=== PATIENT | male | born 1960 | race Caucasian/White ===

== ENCOUNTER 2018-03-31 14:17 | Emergency (ER) | payer OTHER, SELFPAY ==
[2018-03-31 14:25] VITALS: BP 157/87; PULSE 63; RESP 18; TEMP 36.7; O2SAT 98
--- NOTE | 2018-03-31 14:43 | W.ED.GENAD ---
Discharge Plan Disposition Patient Disposition: HOME Condition: Stable Discharge Details Chief Complaint: Abd Prob Clinical Impression: Obstructive jaundice Reason For Visit: loose stool / abd pain Primary Care Provider: Corrie Pacheco ED Provider: Waldemar Montana Discharge Instructions Additional Instructions: Home to rest today. Resume your normal routine and activities. I discussed her case this evening with the gastroenterology service at [facility], Dr. Rae. Hr stated that the clinic will call you at home to arrange an outpatient follow-up as we discussed. We will ask our care management team to speed up your follow-up appointment at [facility] internal medicine as well. Return if you develop a fever or confusion, or any other acute concerns Discharge Data Discharge Date/Time-TO BE ENTERED AT DEPARTURE: 03/31/18 18:49 Medical Decision Making <Brisa Hoffman MD - Last Filed: 04/07/18 16:36> Jaciel Combs is a 57 y/o man came to the emergency department with pale stools over the past week, mild upper abdominal pain without history of major medical problems. On exam patient is well and nontoxic appearing, mild scleral icterus. Mild tenderness across the upper abdomen without peritoneal signs. Concern for possible obstructive biliary process. Plan for screening labs, CT abdomen pelvis, IV fluid hydration. Exam/history not consistent with sepsis, ACS. Patient declines pain medicine. Labs show elevated LFTs. CT of the abdomen/pelvis shows likely obstructing pancreatic mass. Results discussed with the patient by me. Patient signed out to Dr. Montana at shift change pending consultation with GI at [facility]. Clinical impression: Abnormal LFTs, pancreatic mass Disposition: Still patient Medical Records Medical records reviewed: Yes I reviewed the patient's medical records. Imaging Data Radiologic Study: Radiologist's impression: CT ABDOMEN AND PELVIS: There are no prior comparison exams. The lung bases are clear. No pleural or pericardial effusions seen. The liver appears normal in size. There is intrahepatic as well as extrahepatic biliary dilatation. The gallbladder is also distended but there is no wall thickening or pericholecystic fluid. No calcified stones are visible. No common duct stones are identified. There is suboptimal evaluation without oral contrast. There is an apparent mass in the head of the pancreas measuring roughly 2.5 cm No adenopathy is identified. The spleen, adrenals and kidneys are unremarkable. There is a moderate quantity of stool. The appendix appears normal. Diverticula are noted in the sigmoid colon. There is no small bowel dilatation. The prostate is enlarged, impressing upon the base of the bladder. No focal bladder abnormality is seen. Degenerative disc changes are seen at L5-S1. The aorta is normal in diameter. IMPRESSION: Probable mass in the head of the pancreas measuring 2.5 cm causing biliary obstruction. Lab Data Lab results reviewed: Yes I reviewed the patient's lab results. Laboratory Tests Range/Units 03/31/18 03/31/18 03/31/18 15:20 15:20 16:40 WBC (4.4-10.8) k/cumm 6.10 RBC (4.50-6.00) m/cumm 4.71 Hgb (13.5-17.5) g/dL 14.3 Hct (40.0-50.0) % 41.2 MCV (80-95) fL 87.5 MCH (27.0-33.0) pg 30.4 MCHC (32.0-36.0) g/dL 34.7 RDW (11.8-14.1) % 15.8 H Plt Count (130-400) x1000/uL 246 MPV (8.0-11.0) fL 10.6 Immature Gran % 0.2 Neutrophils % 66.4 Lymphocytes % 21.1 Monocytes % 11.3 Eosinophils % 0.5 Basophils % 0.5 Absolute Neutrophils (1.2-6.7) k/cumm 4.05 Absolute Lymphocytes (1.2-3.4) k/cumm 1.29 Absolute Monocytes (0.11-0.7) k/cumm 0.69 Absolute Eosinophils (0.0-0.7) k/cumm 0.03 Absolute Basophils (0.0-0.2) k/cumm 0.03 Sodium (136-145) mmol/L 136 Potassium (3.5-5.1) mmol/L 3.9 Chloride (98-107) mmol/L 100 Carbon Dioxide (21.0-32.0) mmol/L 26.8 Anion Gap (3-11) mmol/L 9.2 BUN (7-18) mg/dL 19 H Creatinine (0.70-1.30) mg/dL 0.81 Estimated GFR/1.73 m2 (mL/min/1.73m2) >= 60.00 Glucose (70-100) mg/dL 97 Calcium (8.5-10.1) mg/dL 9.6 Total Bilirubin (0.2-1.0) mg/dL 6.9 H AST (15-37) U/L 115 H ALT (12-78) U/L 227 H Alkaline Phosphatase (46-116) U/L 305 H Total Protein (6.4-8.2) g/dL 8.2 Albumin (3.4-5.0) g/dL 3.7 Lipase (73-393) U/L 553 H Urine Color (Yellow) Carly Urine Clarity Clear Urine pH (5-8) 5.5 Ur Specific [place] (1.005-1.025) 1.025 Urine Protein (Negative) mg/dL Trace H Urine Ketones (Negative) mg/dL Negative Urine Blood (Negative) Negative Urine Nitrite (Negative) Negative Urine Bilirubin (Negative) Large H Urine Urobilinogen (Up TO 0.2) EU/dL 1.0 H Ur Leukocyte Esterase (Negative) Negative Urine RBC (0-2) Negative Urine WBC (0-5) HPF 0-2 Ur Epithelial Cells (Negative) HPF Negative Urine Crystals (Negative) HPF Negative Urine Bacteria (Negative) HPF Few Urine Casts (Negative) LPF Negative Urine Mucus (Negative) Trace Urine Other (Negative) Negative Ur Culture Indicated? No Urine Glucose (Negative) mg/dL Negative <Waldemar Montana MD - Last Filed: 03/31/18 18:35> Received signout from Dr. Hoffman. Please see her note regarding details of patient's presentation, evaluation and diagnostic results. I discussed the patient's case with Dr. Rae of [facility] GI service. He asked that patient be seen in clinic this week for outpatient endoscopic ultrasound. He stated that the clinic will call the patient at home. I discussed with the patient and his the differential diagnosis of what appears to be a pancreatic head mass. Discussed with him return precautions including the development of fever or confusion. Patient is stable for discharge to home with outpatient follow-up at GI clinic HPI <Brisa Hoffman MD - Last Filed: 04/07/18 16:36> General Mode of arrival: ambulatory. Date/Time Provider Initiated Documentation: 03/31/18 14:43. Limitations to Documentation: no limitations. Information obtained by: patient, RN notes reviewed and old records reviewed. HPI Narrative: Jaciel Combs is a 57-year-old man with out history of major medical problems presenting to the emergency department with pale stools. Patient reports that over the past 7 or 8 days he has noticed that his stool seems very pale, white in color. 2 days ago he developed diarrhea, and color remained pale. He has also noticed some weight loss over the past week that has been unintentional. He has had some mild discomfort across the upper abdomen that he describes as a tightness over the past few days. Fever is fever, no shortness of breath, no cough, no rash, no numbness/tingling/weakness, no nausea or vomiting. Has been eating and drinking as usual no recent illness. No recent travel. Has been able to go about his daily activities as usual. Related Data Allergies Allergy/AdvReac Type Severity Reaction Status Date / Time No Known Allergies Allergy Unverified 03/31/18 14:30 General Stated Complaint: Abd Prob ANAYELI: 3 Review of Systems <Brisa Hoffman MD - Last Filed: 04/07/18 16:36> Review of Systems Constitutional: denies fevers Eyes: denies eye pain ENT: denies facial pain, dental pain, sore throat Cardiovascular: denies chest pain, edema Respiratory: denies SOB, cough GI: reports mild abdominal pain, diarrhea, denies vomiting : denies flank pain MSK: denies back pain, neck pain, arthralgias, myalgias Skin: denies rash Neuro: denies headaches, lightheadedness, weakness Exam <Brisa Hoffman MD - Last Filed: 04/07/18 16:36> Narrative Exam Narrative: Constitutional: well and rdw-rcera-cmamecimm, pleasant, conversing normally HENT: head atraumatic, normocephalic normal inspection, mucous membranes moist Eyes: conjunctiva normal, mild scleral icterus, pupils 3mm b/l Neck: no stridor, normal ROM, trachea midline Chest: normal inspection Resp: normal work of breathing, LCTAB Cardio: normal rate, normal rhythm, no murmur appreciated GI: abdomen soft, non-tender, non-distended Back: normal inspection, no rash Skin: warm, dry, no rash Neuro: alert, not altered, grossly non-focal, normal tone Ext: no edema Psych: normal mood, normal affect, normal behavior Course <Brisa Hoffman MD - Last Filed: 04/07/18 16:36> Vital Signs Temperature 36.7 C 03/31/18 14:25 Pulse 63 03/31/18 14:25 Respiratory Rate 18 03/31/18 14:25 Blood Pressure 157/87 H 03/31/18 14:25 Pulse Oximetry 98 03/31/18 14:25 Temperature 36.7 C 03/31/18 14:25 Temperature Source Temporal Artery Scan 03/31/18 14:25 Pulse 63 03/31/18 14:25 Respiratory Rate 18 03/31/18 14:25 Respiratory Effort 03/31/18 14:30 Blood Pressure 157/87 H 03/31/18 14:25 Blood Pressure Position Sitting 03/31/18 14:25 Pulse Oximetry 98 03/31/18 14:25 Oxygen Delivery Method Room Air 03/31/18 14:25 Oxygen Flow Rate 0 03/31/18 14:25 Comment 03/31/18 14:25 Sign Out <Brisa Hoffman MD - Last Filed: 04/07/18 16:36> Sign Out Data: Sign Out Comment: Patient signed out to Dr. Montana at shift change with discussion with GI pending Last updated by Brisa Hoffman MD at 03/31/18 18:08
--- NOTE | 2018-03-31 14:56 | DI.CT_ITS ---
SYMPTOM/DIAGNOSIS: UPPER ABD PAIN, PALE STOOLS CT ABDOMEN AND PELVIS: There are no prior comparison exams. The lung bases are clear. No pleural or pericardial effusions seen. The liver appears normal in size. There is intrahepatic as well as extrahepatic biliary dilatation. The gallbladder is also distended but there is no wall thickening or pericholecystic fluid. No calcified stones are visible. No common duct stones are identified. There is suboptimal evaluation without oral contrast. There is an apparent mass in the head of the pancreas measuring roughly 2.5 cm No adenopathy is identified. The spleen, adrenals and kidneys are unremarkable. There is a moderate quantity of stool. The appendix appears normal. Diverticula are noted in the sigmoid colon. There is no small bowel dilatation. The prostate is enlarged, impressing upon the base of the bladder. No focal bladder abnormality is seen. Degenerative disc changes are seen at L5-S1. The aorta is normal in diameter. IMPRESSION: Probable mass in the head of the pancreas measuring 2.5 cm causing biliary obstruction.
[2018-03-31 15:46] LABS: Abs Immature Grans 0.01 k/cumm (0.0-0.09); Absolute Basophil Count 0.03 k/cumm (0.0-0.2); Absolute Eosinophil Count 0.03 k/cumm (0.0-0.7); Absolute Lymphocyte Count 1.29 k/cumm (1.2-3.4); Absolute Monocyte Count 0.69 k/cumm (0.11-0.7); Absolute Neutrophil Count 4.05 k/cumm (1.2-6.7); Basophils % 0.5; Eosinophils % 0.5; HCT 41.2 % (40.0-50.0); HGB 14.3 g/dL (13.5-17.5); Immature Grans % 0.2; Lymphocytes % 21.1; Mean Corp. HGB Concentration 34.7 g/dL (32.0-36.0); Mean Corpuscular Hemoglobin 30.4 pg (27.0-33.0); Mean Corpuscular Volume 87.5 fL (80-95); Mean Platelet Volume 10.6 fL (8.0-11.0); Monocytes % 11.3; Neutrophils % 66.4; Platelet Count 246 x1000/uL (130-400); RBC 4.71 m/cumm (4.50-6.00); RBC Distribution Width 15.8 % (11.8-14.1)
[2018-03-31] MEDS: Normal Saline 1,000 ML 1000 ML IV (16:07)
[2018-03-31 16:51] LABS: ALT 227 U/L (12-78); AST 115 U/L (15-37); Albumin 3.7 g/dL (3.4-5.0); Alkaline Phosphatase 305 U/L (46-116); Anion Gap 9.2 mmol/L (3-11); BUN 19 mg/dL (7-18); Bilirubin, Total 6.9 mg/dL (0.2-1.0); CO2 26.8 mmol/L (21.0-32.0); CREATININE 0.81 mg/dL (0.70-1.30); Calcium 9.6 mg/dL (8.5-10.1); Chloride 100 mmol/L (98-107); Glucose 97 mg/dL (70-100); Lipase 553 U/L (73-393); Potassium 3.9 mmol/L (3.5-5.1); Sodium 136 mmol/L (136-145); Total Protein 8.2 g/dL (6.4-8.2)
[2018-03-31 16:54] LABS: Bilirubin Large (Negative); Blood Negative (Negative); Clarity Clear; Glucose Negative (Negative); Ketones Negative (Negative); Leukocyte Esterase Negative (Negative); Nitrite Negative (Negative); Specific Gravity 1.025 (1.005-1.025); pH 5.5 (5-8)
[2018-03-31 17:05] LABS: Bacteria Few HPF (Negative); C & S Indicated? No; Casts Negative LPF (Negative); Crystals Negative HPF (Negative); Epithelial Cells Negative HPF (Negative); Mucus Trace (Negative); Other Cells Negative (Negative); RBC Negative (0-2); WBC 0-2 HPF (0-5)
[2018-03-31] MEDS: Omnipaque 350 MG/ML 100 ML BTL IJ (17:11)
--- NOTE | 2018-03-31 17:27 | DI.VRAD_ITS ---
EXAM: CT Abdomen and Pelvis With Intravenous Contrast EXAM DATE/TIME: 03/31/2018 2:58 PM CLINICAL HISTORY: 57 years old, male; Pain; Abdominal pain; Generalized TECHNIQUE: Axial computed tomography images of the abdomen and pelvis with intravenous contrast. All CT scans at this facility use at least one of these dose optimization techniques: automated exposure control; mA and/or kV adjustment per patient size (includes targeted exams where dose is matched to clinical indication); or iterative reconstruction. Coronal and sagittal reformatted images were created and reviewed. CONTRAST: 93 ml of [id number] administered intravenously. COMPARISON: No relevant prior studies available. FINDINGS: Lower thorax: The visualized portions of the heart and pericardium are unremarkable. The visualized lung bases are within normal limits. ABDOMEN: Liver: See below. Gallbladder and bile ducts: There is intrahepatic and extrahepatic biliary ductal dilatation. The gallbladder is distended. Pancreas: See Stomach And Bowel Finding. Spleen: The spleen is within normal limits. Adrenals: The adrenal glands are unremarkable. Kidneys and ureters: The kidneys are within normal limits. Stomach and bowel: There are feces within the colon which are suspicious for constipation. A lesion within the second portion of the duodenum is not totally excluded. This measures approximately 2.4 x 1.6 cm. This could possibly represent a lesion at the head of pancreas as well. Further evaluation could be obtained with a CT scan of the pancreas utilizing pancreatic protocol. Appendix: No evidence of appendicitis. PELVIS: Bladder: See Reproductive Finding. Reproductive: The prostate is enlarged and indents the bladder base. The urinary bladder is within normal limits. The seminal vesicles are within normal limits. ABDOMEN and PELVIS: Intraperitoneal space: Normal. No free air. No significant fluid collection. Bones/joints: There are degenerative changes of the thoracic and lumbar spines. There is degenerative disc disease L5-S1. Soft tissues: Unremarkable. Vasculature: The aorta is within normal limits. Lymph nodes: No enlarged lymph nodes. IMPRESSION: Intrahepatic and extrahepatic biliary ductal dilatation. The gallbladder is somewhat distended. A lesion at the head of the pancreas/duodenum is not excluded. Further evaluation could be obtained with a CT scan of the pancreas utilizing pancreatic protocol. Suspect some degree of constipation. Clinical correlation is recommended. Enlarged prostate. Correlation with the patient's PSA is recommended. Dictated and Authenticated by: Cj Agosto MD. Ordering:DESIRAE ALARCON MD
[2018-03-31 18:36] VITALS: BP 138/82; PULSE 60; RESP 16; TEMP 36.8; O2SAT 100
== END 2018-03-31 18:49 | disposition home or self-care (01) ==
PROVIDERS: Student in an Organized Health Care Education/Training Program; Emergency Provider Emergency Medicine; PCP Nurse Practitioner
DX: K83.1 Obstruction of bile duct (principal); R63.4 Abnormal weight loss; R93.3 Abnormal findings on diagnostic imaging of other parts of digestive tract
CPT/HCPCS: 36415; 80053; 83690; 96360; 99285; 74177; 81003; 81015; 85025; 99284; J3490

== ENCOUNTER 2018-06-06 00:53 | Outpatient (CLI) | payer OTHER, SELFPAY ==
[2018-06-06 08:29] LABS: Abs Immature Grans 0.02 k/cumm (0.0-0.09); Absolute Basophil Count 0.08 k/cumm (0.0-0.2); Absolute Eosinophil Count 0.32 k/cumm (0.0-0.7); Absolute Monocyte Count 0.52 k/cumm (0.11-0.7); Absolute Neutrophil Count 3.67 k/cumm (1.2-6.7); Basophils % 1.3; Eosinophils % 5.3; HCT 39.4 % (40.0-50.0); HGB 13.2 g/dL (13.5-17.5); Immature Grans % 0.3; Lymphocytes % 23.3; Mean Corp. HGB Concentration 33.5 g/dL (32.0-36.0); Mean Corpuscular Hemoglobin 33.1 pg (27.0-33.0); Mean Corpuscular Volume 98.7 fL (80-95); Mean Platelet Volume 9.1 fL (8.0-11.0); Monocytes % 8.7; Neutrophils % 61.1; Platelet Count 295 x1000/uL (130-400); RBC 3.99 m/cumm (4.50-6.00); RBC Distribution Width 13.3 % (11.8-14.1); White Blood Cell Count 6.01 k/cumm (4.4-10.8)
[2018-06-06 08:51] LABS: ALT 54 U/L (12-78); AST 30 U/L (15-37); Albumin 3.3 g/dL (3.4-5.0); Alkaline Phosphatase 88 U/L (46-116); Anion Gap 7.7 mmol/L (3-11); BUN 18 mg/dL (7-18); Bilirubin, Total 0.7 mg/dL (0.2-1.0); CO2 30.3 mmol/L (21.0-32.0); CREATININE 0.86 mg/dL (0.70-1.30); Chloride 103 mmol/L (98-107); Glucose 109 mg/dL (70-100); Potassium 3.9 mmol/L (3.5-5.1); Sodium 141 mmol/L (136-145); Total Protein 7.6 g/dL (6.4-8.2)
[2018-06-06 09:02] LABS: Calcium 8.7 mg/dL (8.5-10.1)
[2018-06-09 11:48] LABS: CA 19-9 3 U/mL (<35)
== END 2018-06-06 01:13 ==
PROVIDERS: PCP Nurse Practitioner; Visit Provider Internal Medicine Hematology & Oncology
DX: C25.0 Malignant neoplasm of head of pancreas (principal)
CPT/HCPCS: 36415; 80053; 85025; 86301

== ENCOUNTER 2018-06-19 01:42 | Outpatient (RCR) | payer OTHER, SELFPAY ==
[2018-06-19 13:00] LABS: Abs Immature Grans 0.01 k/cumm (0.0-0.09); Absolute Basophil Count 0.06 k/cumm (0.0-0.2); Absolute Lymphocyte Count 2.07 k/cumm (1.2-3.4); Absolute Monocyte Count 0.62 k/cumm (0.11-0.7); Absolute Neutrophil Count 4.49 k/cumm (1.2-6.7); Basophils % 0.8; Eosinophils % 2.7; HCT 38.8 % (40.0-50.0); HGB 12.8 g/dL (13.5-17.5); Immature Grans % 0.1; Lymphocytes % 27.8; Mean Corpuscular Hemoglobin 31.8 pg (27.0-33.0); Mean Corpuscular Volume 96.3 fL (80-95); Mean Platelet Volume 9.1 fL (8.0-11.0); Monocytes % 8.3; Neutrophils % 60.3; Platelet Count 231 x1000/uL (130-400); RBC 4.03 m/cumm (4.50-6.00); RBC Distribution Width 11.7 % (11.8-14.1); White Blood Cell Count 7.45 k/cumm (4.4-10.8)
[2018-06-19] MEDS: Normal Saline Flush 10 ML SYR IVP (13:06)
[2018-06-19] MEDS: Heparin 500 UNITS/5 ML SYRINGE IV (13:06)
[2018-06-19 13:17] LABS: ALT 41 U/L (12-78); AST 25 U/L (15-37); Albumin 3.4 g/dL (3.4-5.0); Alkaline Phosphatase 80 U/L (46-116); Anion Gap 8.3 mmol/L (3-11); BUN 22 mg/dL (7-18); Bilirubin, Total 0.9 mg/dL (0.2-1.0); CO2 28.7 mmol/L (21.0-32.0); CREATININE 0.81 mg/dL (0.70-1.30); Calcium 8.7 mg/dL (8.5-10.1); Chloride 104 mmol/L (98-107); Glucose 127 mg/dL (70-100); Potassium 3.8 mmol/L (3.5-5.1); Sodium 141 mmol/L (136-145); Total Protein 7.5 g/dL (6.4-8.2)
== END 2018-07-03 23:59 | disposition home or self-care (01) ==
LOC: INF 01:42
PROVIDERS: PCP Nurse Practitioner; Visit Provider Internal Medicine Hematology & Oncology
DX: C25.0 Malignant neoplasm of head of pancreas (principal); Z45.2 Encounter for adjustment and management of vascular access device
CPT/HCPCS: 36591; 80053; 85025

== ENCOUNTER 2018-08-01 01:47 | Outpatient (RCR) | payer OTHER, SELFPAY ==
[2018-07-04] MEDS: Normal Saline Flush 10 ML SYR IVP (13:44)
[2018-07-04] MEDS: Heparin 500 UNITS/5 ML SYRINGE IV (13:44)
[2018-07-04 13:56] LABS: Abs Immature Grans 0.01 k/cumm (0.0-0.09); Absolute Basophil Count 0.05 k/cumm (0.0-0.2); Absolute Eosinophil Count 0.08 k/cumm (0.0-0.7); Absolute Lymphocyte Count 1.19 k/cumm (1.2-3.4); Absolute Monocyte Count 0.82 k/cumm (0.11-0.7); Absolute Neutrophil Count 5.22 k/cumm (1.2-6.7); Basophils % 0.7; Eosinophils % 1.1; HCT 43.4 % (40.0-50.0); HGB 15.5 g/dL (13.5-17.5); Immature Grans % 0.1; Lymphocytes % 16.1; Mean Corp. HGB Concentration 35.7 g/dL (32.0-36.0); Mean Corpuscular Hemoglobin 31.3 pg (27.0-33.0); Mean Corpuscular Volume 87.5 fL (80-95); Mean Platelet Volume 9.8 fL (8.0-11.0); Monocytes % 11.1; Neutrophils % 70.9; Platelet Count 221 x1000/uL (130-400); RBC 4.96 m/cumm (4.50-6.00); RBC Distribution Width 11.6 % (11.8-14.1); White Blood Cell Count 7.37 k/cumm (4.4-10.8)
[2018-07-04 14:09] LABS: ALT 42 U/L (12-78); AST 25 U/L (15-37); Albumin 3.2 g/dL (3.4-5.0); Alkaline Phosphatase 82 U/L (46-116); Anion Gap 8.4 mmol/L (3-11); BUN 21 mg/dL (7-18); Bilirubin, Total 0.4 mg/dL (0.2-1.0); CO2 26.6 mmol/L (21.0-32.0); CREATININE 0.94 mg/dL (0.70-1.30); Calcium 8.7 mg/dL (8.5-10.1); Chloride 98 mmol/L (98-107); Glucose 144 mg/dL (70-100); Potassium 3.3 mmol/L (3.5-5.1); Sodium 133 mmol/L (136-145); Total Protein 7.4 g/dL (6.4-8.2)
[2018-07-18] MEDS: Normal Saline Flush 10 ML SYR IVP (11:05)
[2018-07-18] MEDS: Heparin 500 UNITS/5 ML SYRINGE IV (11:06)
[2018-07-18 11:27] LABS: Abs Immature Grans 0.01 k/cumm (0.0-0.09); Absolute Basophil Count 0.06 k/cumm (0.0-0.2); Absolute Eosinophil Count 0.07 k/cumm (0.0-0.7); Absolute Lymphocyte Count 1.27 k/cumm (1.2-3.4); Absolute Monocyte Count 0.53 k/cumm (0.11-0.7); Absolute Neutrophil Count 3.82 k/cumm (1.2-6.7); Eosinophils % 1.2; HCT 41.9 % (40.0-50.0); HGB 14.8 g/dL (13.5-17.5); Immature Grans % 0.2; Mean Corp. HGB Concentration 35.3 g/dL (32.0-36.0); Mean Corpuscular Hemoglobin 30.6 pg (27.0-33.0); Mean Corpuscular Volume 86.6 fL (80-95); Mean Platelet Volume 8.7 fL (8.0-11.0); Monocytes % 9.2; Neutrophils % 66.4; Platelet Count 202 x1000/uL (130-400); RBC 4.84 m/cumm (4.50-6.00); RBC Distribution Width 11.6 % (11.8-14.1); White Blood Cell Count 5.76 k/cumm (4.4-10.8)
[2018-07-18 11:40] LABS: ALT 51 U/L (12-78); AST 29 U/L (15-37); Albumin 2.8 g/dL (3.4-5.0); Alkaline Phosphatase 88 U/L (46-116); Anion Gap 7.8 mmol/L (3-11); BUN 12 mg/dL (7-18); Bilirubin, Total 0.2 mg/dL (0.2-1.0); CO2 30.2 mmol/L (21.0-32.0); CREATININE 0.77 mg/dL (0.70-1.30); Calcium 8.6 mg/dL (8.5-10.1); Chloride 98 mmol/L (98-107); Glucose 112 mg/dL (70-100); Potassium 3.7 mmol/L (3.5-5.1); Sodium 136 mmol/L (136-145); Total Protein 6.6 g/dL (6.4-8.2)
[2018-08-01] MEDS: Heparin 500 UNITS/5 ML SYRINGE IV (14:15)
[2018-08-01] MEDS: Normal Saline Flush 10 ML SYR IVP (14:15)
[2018-08-01 14:57] LABS: ALT 45 U/L (12-78); AST 27 U/L (15-37); Albumin 3.1 g/dL (3.4-5.0); Alkaline Phosphatase 89 U/L (46-116); Anion Gap 8.4 mmol/L (3-11); BUN 14 mg/dL (7-18); Bilirubin, Total 0.2 mg/dL (0.2-1.0); CO2 28.6 mmol/L (21.0-32.0); CREATININE 0.75 mg/dL (0.70-1.30); Calcium 8.8 mg/dL (8.5-10.1); Chloride 102 mmol/L (98-107); Glucose 119 mg/dL (70-100); Potassium 3.8 mmol/L (3.5-5.1); Sodium 139 mmol/L (136-145)
[2018-08-01 14:58] LABS: Abs Immature Grans 0.01 k/cumm (0.0-0.09); Absolute Basophil Count 0.04 k/cumm (0.0-0.2); Absolute Eosinophil Count 0.37 k/cumm (0.0-0.7); Absolute Lymphocyte Count 1.82 k/cumm (1.2-3.4); Absolute Monocyte Count 0.79 k/cumm (0.11-0.7); Absolute Neutrophil Count 4.39 k/cumm (1.2-6.7); Basophils % 0.5; HCT 40.8 % (40.0-50.0); HGB 14.2 g/dL (13.5-17.5); Immature Grans % 0.1; Lymphocytes % 24.5; Mean Corp. HGB Concentration 34.8 g/dL (32.0-36.0); Mean Corpuscular Hemoglobin 29.8 pg (27.0-33.0); Mean Corpuscular Volume 85.7 fL (80-95); Monocytes % 10.6; Neutrophils % 59.3; Platelet Count 221 x1000/uL (130-400); RBC 4.76 m/cumm (4.50-6.00); RBC Distribution Width 12.2 % (11.8-14.1); White Blood Cell Count 7.42 k/cumm (4.4-10.8)
== END 2018-08-03 23:59 | disposition home or self-care (01) ==
LOC: INF 01:47
PROVIDERS: PCP Nurse Practitioner; Visit Provider Internal Medicine Hematology & Oncology
DX: C25.0 Malignant neoplasm of head of pancreas (principal); Z45.2 Encounter for adjustment and management of vascular access device
CPT/HCPCS: 36591; 80053; 85025

== ENCOUNTER 2018-09-01 01:47 | Outpatient (RCR) | payer OTHER, SELFPAY ==
[2018-08-15] MEDS: Normal Saline Flush 10 ML SYR IVP (13:25)
[2018-08-15] MEDS: Heparin 500 UNITS/5 ML SYRINGE IV (13:25)
[2018-08-15 13:52] LABS: Abs Immature Grans 0.01 k/cumm (0.0-0.09); Absolute Basophil Count 0.06 k/cumm (0.0-0.2); Absolute Eosinophil Count 0.34 k/cumm (0.0-0.7); Absolute Lymphocyte Count 1.76 k/cumm (1.2-3.4); Absolute Monocyte Count 0.77 k/cumm (0.11-0.7); Absolute Neutrophil Count 2.35 k/cumm (1.2-6.7); Basophils % 1.1; Eosinophils % 6.4; HCT 39.3 % (40.0-50.0); HGB 13.9 g/dL (13.5-17.5); Immature Grans % 0.2; Lymphocytes % 33.3; Mean Corp. HGB Concentration 35.4 g/dL (32.0-36.0); Mean Corpuscular Hemoglobin 29.6 pg (27.0-33.0); Mean Corpuscular Volume 83.8 fL (80-95); Mean Platelet Volume 9.4 fL (8.0-11.0); Monocytes % 14.6; Neutrophils % 44.4; Platelet Count 193 x1000/uL (130-400); RBC 4.69 m/cumm (4.50-6.00); White Blood Cell Count 5.29 k/cumm (4.4-10.8)
[2018-08-15 14:31] LABS: Iron 77 ug/dL (50-175); Total Iron Binding Capacity 255 ug/dL (250-450); Transferrin Sat 30 % (20-55)
[2018-08-15 14:37] LABS: ALT 49 U/L (12-78); AST 29 U/L (15-37); Alkaline Phosphatase 93 U/L (46-116); Anion Gap 7.1 mmol/L (3-11); BUN 15 mg/dL (7-18); Bilirubin, Total 0.2 mg/dL (0.2-1.0); CO2 29.9 mmol/L (21.0-32.0); CREATININE 0.88 mg/dL (0.70-1.30); Calcium 8.7 mg/dL (8.5-10.1); Chloride 102 mmol/L (98-107); Glucose 121 mg/dL (70-100); Potassium 3.6 mmol/L (3.5-5.1); Sodium 139 mmol/L (136-145)
[2018-08-15 14:41] LABS: Ferritin 1184 ng/mL (8-388)
[2018-08-18 14:07] LABS: Vitamin D 25 Total 26.6 ng/ml (30-100)
[2018-08-18 15:22] LABS: Free Retinol (Vitamin A) 50.1 mcg/dL (32.5-78.0)
[2018-08-19 11:33] LABS: Vitamin E, Serum 6.1 mg/L (5.5 - 17.0)
[2018-09-01] MEDS: Normal Saline Flush 10 ML SYR IVP (07:18)
[2018-09-01 07:22] LABS: Abs Immature Grans 0.01 k/cumm (0.0-0.09); Absolute Basophil Count 0.07 k/cumm (0.0-0.2); Absolute Eosinophil Count 0.31 k/cumm (0.0-0.7); Absolute Monocyte Count 0.89 k/cumm (0.11-0.7); Basophils % 1.2; Eosinophils % 5.4; HCT 33.6 % (40.0-50.0); HGB 11.8 g/dL (13.5-17.5); Immature Grans % 0.2; Lymphocytes % 22.5; Mean Corp. HGB Concentration 35.1 g/dL (32.0-36.0); Mean Corpuscular Hemoglobin 30.3 pg (27.0-33.0); Mean Corpuscular Volume 86.4 fL (80-95); Mean Platelet Volume 8.7 fL (8.0-11.0); Monocytes % 15.4; Neutrophils % 55.3; Platelet Count 181 x1000/uL (130-400); RBC 3.89 m/cumm (4.50-6.00); RBC Distribution Width 15.3 % (11.8-14.1); White Blood Cell Count 5.78 k/cumm (4.4-10.8)
[2018-09-01 07:35] LABS: ALT 32 U/L (12-78); AST 22 U/L (15-37); Albumin 2.8 g/dL (3.4-5.0); Alkaline Phosphatase 91 U/L (46-116); Anion Gap 7.4 mmol/L (3-11); BUN 9 mg/dL (7-18); Bilirubin, Total 0.3 mg/dL (0.2-1.0); CO2 30.6 mmol/L (21.0-32.0); CREATININE 0.64 mg/dL (0.70-1.30); Calcium 8.6 mg/dL (8.5-10.1); Chloride 103 mmol/L (98-107); Glucose 96 mg/dL (70-100); Potassium 3.2 mmol/L (3.5-5.1); Sodium 141 mmol/L (136-145); Total Protein 6.6 g/dL (6.4-8.2)
== END 2018-09-02 23:59 | disposition home or self-care (01) ==
LOC: INF 01:47
PROVIDERS: Nurse Practitioner Adult Health; PCP Nurse Practitioner; Visit Provider Internal Medicine Hematology & Oncology
DX: C25.0 Malignant neoplasm of head of pancreas (principal); Z45.2 Encounter for adjustment and management of vascular access device
CPT/HCPCS: 36591; 80053; 82306; 82728; 83540; 83550; 84446; 84590; 85025

== ENCOUNTER 2018-10-01 01:50 | Outpatient (RCR) | payer OTHER, SELFPAY ==
[2018-09-15] MEDS: Normal Saline Flush 10 ML SYR IVP (07:21)
[2018-09-15 07:37] LABS: Abs Immature Grans 0.01 k/cumm (0.0-0.09); Absolute Basophil Count 0.04 k/cumm (0.0-0.2); Absolute Eosinophil Count 0.08 k/cumm (0.0-0.7); Absolute Lymphocyte Count 1.29 k/cumm (1.2-3.4); Absolute Monocyte Count 0.85 k/cumm (0.11-0.7); Absolute Neutrophil Count 3.05 k/cumm (1.2-6.7); Basophils % 0.8; Eosinophils % 1.5; HGB 11.4 g/dL (13.5-17.5); Immature Grans % 0.2; Lymphocytes % 24.2; Mean Corp. HGB Concentration 34.5 g/dL (32.0-36.0); Mean Corpuscular Hemoglobin 30.7 pg (27.0-33.0); Mean Corpuscular Volume 88.9 fL (80-95); Neutrophils % 57.3; Platelet Count 172 x1000/uL (130-400); RBC 3.71 m/cumm (4.50-6.00); RBC Distribution Width 17.7 % (11.8-14.1); White Blood Cell Count 5.32 k/cumm (4.4-10.8)
[2018-09-15 07:52] LABS: ALT 40 U/L (12-78); AST 27 U/L (15-37); Albumin 2.9 g/dL (3.4-5.0); Alkaline Phosphatase 101 U/L (46-116); BUN 10 mg/dL (7-18); Bilirubin, Total 0.3 mg/dL (0.2-1.0); CREATININE 0.69 mg/dL (0.70-1.30); Calcium 8.4 mg/dL (8.5-10.1); Chloride 104 mmol/L (98-107); Glucose 107 mg/dL (70-100); Potassium 3.5 mmol/L (3.5-5.1); Sodium 140 mmol/L (136-145); Total Protein 6.6 g/dL (6.4-8.2)
[2018-10-01 07:32] LABS: Abs Immature Grans 0.01 k/cumm (0.0-0.09); Absolute Basophil Count 0.05 k/cumm (0.0-0.2); Absolute Eosinophil Count 0.13 k/cumm (0.0-0.7); Absolute Monocyte Count 0.62 k/cumm (0.11-0.7); Absolute Neutrophil Count 1.38 k/cumm (1.2-6.7); Basophils % 1.4; Eosinophils % 3.7; HCT 32.8 % (40.0-50.0); Immature Grans % 0.3; Lymphocytes % 37.2; Mean Corp. HGB Concentration 33.5 g/dL (32.0-36.0); Mean Corpuscular Hemoglobin 31.5 pg (27.0-33.0); Mean Platelet Volume 9.2 fL (8.0-11.0); Monocytes % 17.8; Neutrophils % 39.6; Platelet Count 160 x1000/uL (130-400); RBC 3.49 m/cumm (4.50-6.00); RBC Distribution Width 18.5 % (11.8-14.1); White Blood Cell Count 3.49 k/cumm (4.4-10.8)
[2018-10-01 07:45] LABS: ALT 40 U/L (12-78); AST 27 U/L (15-37); Albumin 2.9 g/dL (3.4-5.0); Alkaline Phosphatase 94 U/L (46-116); Anion Gap 9.5 mmol/L (3-11); BUN 15 mg/dL (7-18); Bilirubin, Total 0.2 mg/dL (0.2-1.0); CO2 27.5 mmol/L (21.0-32.0); CREATININE 0.59 mg/dL (0.70-1.30); Calcium 8.6 mg/dL (8.5-10.1); Chloride 105 mmol/L (98-107); Glucose 125 mg/dL (70-100); Potassium 3.5 mmol/L (3.5-5.1); Sodium 142 mmol/L (136-145); Total Protein 6.4 g/dL (6.4-8.2)
[2018-10-01 07:54] LABS: Anisocytosis 2+; Diff Comment Diff Reviewed
[2018-10-01] MEDS: Normal Saline Flush 10 ML SYR IVP (08:25)
== END 2018-10-03 23:59 | disposition home or self-care (01) ==
LOC: INF 01:50
PROVIDERS: PCP Nurse Practitioner; Visit Provider Internal Medicine Hematology & Oncology
DX: C25.0 Malignant neoplasm of head of pancreas (principal); Z45.2 Encounter for adjustment and management of vascular access device
CPT/HCPCS: 36591; 80053; 85025

== ENCOUNTER 2018-10-27 02:06 | Outpatient (RCR) | payer OTHER, SELFPAY ==
[2018-10-10] MEDS: Normal Saline Flush 10 ML SYR IVP (13:38)
[2018-10-10] MEDS: Heparin 500 UNITS/5 ML SYRINGE IV (13:38)
[2018-10-10 13:49] LABS: Abs Immature Grans 0.02 k/cumm (0.0-0.09); Absolute Basophil Count 0.03 k/cumm (0.0-0.2); Absolute Eosinophil Count 0.17 k/cumm (0.0-0.7); Absolute Lymphocyte Count 1.37 k/cumm (1.2-3.4); Absolute Neutrophil Count 2.97 k/cumm (1.2-6.7); Basophils % 0.6; Eosinophils % 3.2; HCT 35.1 % (40.0-50.0); Immature Grans % 0.4; Lymphocytes % 25.6; Mean Corp. HGB Concentration 34.2 g/dL (32.0-36.0); Mean Corpuscular Hemoglobin 32.6 pg (27.0-33.0); Mean Corpuscular Volume 95.4 fL (80-95); Mean Platelet Volume 8.9 fL (8.0-11.0); Monocytes % 14.9; Neutrophils % 55.3; Platelet Count 188 x1000/uL (130-400); RBC 3.68 m/cumm (4.50-6.00); RBC Distribution Width 17.2 % (11.8-14.1); White Blood Cell Count 5.36 k/cumm (4.4-10.8)
[2018-10-10 14:06] LABS: ALT 107 U/L (12-78); AST 70 U/L (15-37); Albumin 3.2 g/dL (3.4-5.0); Alkaline Phosphatase 126 U/L (46-116); Anion Gap 9.2 mmol/L (3-11); BUN 19 mg/dL (7-18); Bilirubin, Total 0.2 mg/dL (0.2-1.0); CO2 26.8 mmol/L (21.0-32.0); CREATININE 0.71 mg/dL (0.70-1.30); Calcium 8.8 mg/dL (8.5-10.1); Chloride 103 mmol/L (98-107); Glucose 118 mg/dL (70-100); Potassium 3.9 mmol/L (3.5-5.1); Sodium 139 mmol/L (136-145); Total Protein 7.2 g/dL (6.4-8.2)
[2018-10-27] MEDS: Normal Saline Flush 10 ML SYR IVP (07:05)
[2018-10-27 07:30] LABS: Absolute Basophil Count 0.02 k/cumm (0.0-0.2); Absolute Eosinophil Count 0.08 k/cumm (0.0-0.7); Absolute Lymphocyte Count 1.04 k/cumm (1.2-3.4); Absolute Monocyte Count 0.62 k/cumm (0.11-0.7); Absolute Neutrophil Count 1.85 k/cumm (1.2-6.7); Basophils % 0.6; Eosinophils % 2.2; HCT 33.5 % (40.0-50.0); HGB 11.3 g/dL (13.5-17.5); Lymphocytes % 28.8; Mean Corp. HGB Concentration 33.7 g/dL (32.0-36.0); Mean Corpuscular Hemoglobin 33.3 pg (27.0-33.0); Mean Corpuscular Volume 98.8 fL (80-95); Mean Platelet Volume 9.2 fL (8.0-11.0); Monocytes % 17.2; Neutrophils % 51.2; Platelet Count 112 x1000/uL (130-400); RBC 3.39 m/cumm (4.50-6.00); RBC Distribution Width 14.9 % (11.8-14.1); White Blood Cell Count 3.61 k/cumm (4.4-10.8)
[2018-10-27 07:41] LABS: ALT 53 U/L (12-78); AST 34 U/L (15-37); Albumin 2.9 g/dL (3.4-5.0); Alkaline Phosphatase 114 U/L (46-116); Anion Gap 8.4 mmol/L (3-11); BUN 12 mg/dL (7-18); Bilirubin, Total 0.2 mg/dL (0.2-1.0); CO2 27.6 mmol/L (21.0-32.0); CREATININE 0.67 mg/dL (0.70-1.30); Calcium 8.5 mg/dL (8.5-10.1); Chloride 107 mmol/L (98-107); Glucose 111 mg/dL (70-100); Potassium 3.8 mmol/L (3.5-5.1); Sodium 143 mmol/L (136-145); Total Protein 6.5 g/dL (6.4-8.2)
== END 2018-11-02 23:59 | disposition home or self-care (01) ==
LOC: INF 02:06
PROVIDERS: PCP Nurse Practitioner; Visit Provider Internal Medicine Hematology & Oncology
DX: C25.0 Malignant neoplasm of head of pancreas (principal); Z45.2 Encounter for adjustment and management of vascular access device
CPT/HCPCS: 36591; 80053; 85025

== ENCOUNTER 2018-11-24 01:17 | Outpatient (RCR) | payer OTHER, SELFPAY ==
[2018-11-10] MEDS: Normal Saline Flush 10 ML SYR IVP (07:07)
[2018-11-10 07:17] LABS: Abs Immature Grans 0.01 k/cumm (0.0-0.09); Absolute Basophil Count 0.04 k/cumm (0.0-0.2); Absolute Eosinophil Count 0.08 k/cumm (0.0-0.7); Absolute Lymphocyte Count 1.11 k/cumm (1.2-3.4); Absolute Monocyte Count 0.67 k/cumm (0.11-0.7); HCT 36.1 % (40.0-50.0); HGB 12.2 g/dL (13.5-17.5); Immature Grans % 0.2; Lymphocytes % 27.7; Mean Corp. HGB Concentration 33.8 g/dL (32.0-36.0); Mean Corpuscular Hemoglobin 33.6 pg (27.0-33.0); Mean Corpuscular Volume 99.4 fL (80-95); Mean Platelet Volume 8.8 fL (8.0-11.0); Monocytes % 16.7; Neutrophils % 52.4; Platelet Count 160 x1000/uL (130-400); RBC 3.63 m/cumm (4.50-6.00); RBC Distribution Width 14.1 % (11.8-14.1); White Blood Cell Count 4.01 k/cumm (4.4-10.8)
[2018-11-10 07:32] LABS: ALT 61 U/L (12-78); AST 37 U/L (15-37); Albumin 3.1 g/dL (3.4-5.0); Alkaline Phosphatase 122 U/L (46-116); Anion Gap 9.7 mmol/L (3-11); BUN 18 mg/dL (7-18); Bilirubin, Total 0.2 mg/dL (0.2-1.0); CO2 26.3 mmol/L (21.0-32.0); CREATININE 0.71 mg/dL (0.70-1.30); Calcium 8.8 mg/dL (8.5-10.1); Chloride 106 mmol/L (98-107); Glucose 132 mg/dL (70-100); Potassium 3.8 mmol/L (3.5-5.1); Sodium 142 mmol/L (136-145)
[2018-11-24 07:18] LABS: Abs Immature Grans 0.01 k/cumm (0.0-0.09); Absolute Basophil Count 0.02 k/cumm (0.0-0.2); Absolute Eosinophil Count 0.09 k/cumm (0.0-0.7); Absolute Lymphocyte Count 1.06 k/cumm (1.2-3.4); Absolute Monocyte Count 0.93 k/cumm (0.11-0.7); Absolute Neutrophil Count 2.91 k/cumm (1.2-6.7); Basophils % 0.4; Eosinophils % 1.8; HCT 36.6 % (40.0-50.0); HGB 12.6 g/dL (13.5-17.5); Immature Grans % 0.2; Lymphocytes % 21.1; Mean Corp. HGB Concentration 34.4 g/dL (32.0-36.0); Mean Corpuscular Hemoglobin 34.1 pg (27.0-33.0); Mean Corpuscular Volume 98.9 fL (80-95); Mean Platelet Volume 8.8 fL (8.0-11.0); Monocytes % 18.5; Platelet Count 157 x1000/uL (130-400); RBC Distribution Width 13.8 % (11.8-14.1); White Blood Cell Count 5.02 k/cumm (4.4-10.8)
[2018-11-24] MEDS: Normal Saline Flush 10 ML SYR IVP (07:29)
[2018-11-24 07:36] LABS: ALT 61 U/L (12-78); AST 34 U/L (15-37); Albumin 3.2 g/dL (3.4-5.0); Alkaline Phosphatase 130 U/L (46-116); Anion Gap 7.3 mmol/L (3-11); BUN 19 mg/dL (7-18); Bilirubin, Total 0.2 mg/dL (0.2-1.0); CO2 26.7 mmol/L (21.0-32.0); CREATININE 0.71 mg/dL (0.70-1.30); Calcium 8.8 mg/dL (8.5-10.1); Chloride 107 mmol/L (98-107); Glucose 110 mg/dL (70-100); Potassium 4.1 mmol/L (3.5-5.1); Sodium 141 mmol/L (136-145); Total Protein 7.2 g/dL (6.4-8.2)
== END 2018-12-03 23:59 | disposition home or self-care (01) ==
LOC: INF 01:17
PROVIDERS: PCP Nurse Practitioner; Visit Provider Internal Medicine Hematology & Oncology
DX: C25.0 Malignant neoplasm of head of pancreas (principal); Z45.2 Encounter for adjustment and management of vascular access device
CPT/HCPCS: 36591; 80053; 85025

== ENCOUNTER 2019-01-02 00:59 | Outpatient (RCR) | payer OTHER, SELFPAY ==
[2019-01-02] MEDS: Normal Saline Flush 10 ML SYR IVP (14:25)
[2019-01-02] MEDS: Heparin 500 UNITS/5 ML SYRINGE IV (14:26)
[2019-01-02 14:38] LABS: Abs Immature Grans 0.01 k/cumm (0.0-0.09); Absolute Basophil Count 0.03 k/cumm (0.0-0.2); Absolute Eosinophil Count 0.11 k/cumm (0.0-0.7); Absolute Lymphocyte Count 1.54 k/cumm (1.2-3.4); Absolute Monocyte Count 0.53 k/cumm (0.11-0.7); Absolute Neutrophil Count 2.32 k/cumm (1.2-6.7); Basophils % 0.7; Eosinophils % 2.4; HCT 36.8 % (40.0-50.0); HGB 12.3 g/dL (13.5-17.5); Immature Grans % 0.2; Lymphocytes % 33.9; Mean Corp. HGB Concentration 33.4 g/dL (32.0-36.0); Mean Corpuscular Volume 98.7 fL (80-95); Mean Platelet Volume 9.6 fL (8.0-11.0); Monocytes % 11.7; Neutrophils % 51.1; Platelet Count 180 x1000/uL (130-400); RBC 3.73 m/cumm (4.50-6.00); RBC Distribution Width 12.8 % (11.8-14.1); White Blood Cell Count 4.54 k/cumm (4.4-10.8)
[2019-01-02 15:00] LABS: ALT 54 U/L (16-63); AST 34 U/L (15-37); Albumin 3.4 g/dL (3.4-5.0); Alkaline Phosphatase 126 U/L (46-116); Anion Gap 8.1 mmol/L (3-11); BUN 21 mg/dL (7-18); Bilirubin, Total 0.3 mg/dL (0.2-1.0); CO2 26.9 mmol/L (21.0-32.0); CREATININE 0.82 mg/dL (0.70-1.30); Calcium 8.5 mg/dL (8.5-10.1); Chloride 106 mmol/L (98-107); Glucose 122 mg/dL (70-100); Potassium 4.2 mmol/L (3.5-5.1); Sodium 141 mmol/L (136-145); Total Protein 7.3 g/dL (6.4-8.2)
[2019-01-05 11:54] LABS: CA 19-9 <2 U/mL (<35)
== END 2019-01-03 23:59 | disposition home or self-care (01) ==
LOC: INF 00:59
PROVIDERS: PCP Nurse Practitioner; Visit Provider Internal Medicine Hematology & Oncology
DX: C25.0 Malignant neoplasm of head of pancreas (principal); Z45.2 Encounter for adjustment and management of vascular access device
CPT/HCPCS: 36591; 80053; 85025; 86301

== ENCOUNTER 2020-08-09 01:17 | Outpatient (CLI) | payer BC, SELFPAY ==
[2020-08-09] MEDS: Breeza Beverage 473 ML BTL PO ×2 (12:55→12:56)
[2020-08-09] MEDS: Omnipaque 350 MG/ML 50 ML BTL PO (12:56)
[2020-08-09 13:19] LABS: Abs Immature Grans 0.01 10^3/uL (0.0-0.06); Absolute Basophil Count 0.02 10^3/uL (0.0-0.2); Absolute Eosinophil Count 0.05 10^3/uL (0.0-0.7); Absolute Lymphocyte Count 1.48 10^3/uL (1.2-3.4); Absolute Monocyte Count 0.42 10^3/uL (0.1-0.8); Absolute Neutrophil Count 2.75 10^3/uL (1.2-6.7); Basophils % 0.4; Eosinophils % 1.1; HCT 45.7 % (40.0-50.0); HGB 15.4 g/dL (13.5-17.5); Immature Grans % 0.2; Lymphocytes % 31.3; MCH 30.8 pg (27.0-33.0); MCHC 33.7 % (32.0-36.0); MCV 91.4 fL (80-95); MPV 9.3 fL (8.0-11.0); Monocytes % 8.9; Neutrophils % 58.1; Nucleated RBC 0 %; Platelet Count 147 10^3/uL (130-400); RDW 12.8 % (11.8-14.1); RDW-SD 43.4 fL; WBC 4.73 10^3/uL (4.4-10.8)
[2020-08-09 13:30] LABS: ALT 59 U/L (16-63); AST 35 U/L (15-37); Albumin 3.7 g/dL (3.4-5.0); Alkaline Phosphatase 62 U/L (46-116); Anion Gap 7.4 mmol/L (3-11); BUN 19 mg/dL (7-18); Bilirubin, Total 0.4 mg/dL (0.2-1.0); CO2 29.6 mmol/L (21.0-32.0); Calcium 8.4 mg/dL (8.5-10.1); Chloride 102 mmol/L (98-107); Glucose 92 mg/dL (74-106); Potassium 3.8 mmol/L (3.5-5.1); Sodium 139 mmol/L (136-145); Total Protein 7.5 g/dL (6.4-8.2)
[2020-08-09] MEDS: Normal Saline - Diluent 50 ML VIAL IV (14:26)
[2020-08-09] MEDS: Omnipaque 350 MG/ML 100 ML BTL IJ (14:29)
--- NOTE | 2020-08-09 14:37 | DI.CT_ITS ---
EXAM: CT CHEST/ABD/PEL W CLINICAL HISTORY: H/O PANCREATIC CA, C25.0,S/P WHIPPLE PROCEDURE AND CHEMO, RESTAGING EXAM TECHNIQUE: CT examination of the chest, abdomen, and pelvis was performed utilizing intravenous inf usion of 100 cc of Omnipaque 350 with biphasic hepatic imaging. Oral contrast was also administered. COMPARISON: CT CT ABDOMEN PELVIS W from 03/31/[address] CHEST ABDOMEN PELVI from 11/10/2019 FINDINGS: There are multiple new areas of peripheral pulmonary round glass opacity which were not present prior CT from [facility] November 10, 2019. The most easily seen of these is in the left lower lobe posterolate rally with associated pleural thickening, these areas of ground-glass opacity measure 1-[address] Differential would include infectious process versus metastatic disease. There is no pleural effusion. No mediastinal or hilar adenopathy. No axillary or supraclavicular adenopathy. Tracheobronchial maria victoria e appears intact. No evidence of pulmonary embolic disease. Unremarkable appearance of thoracic aorta and major branch vessels. The liver appears normal with no focal hepatic lesion identified. Spleen is unremarkable in appearance. Prior Whipple procedure noted, pancreatic remnant unchanged in appearance comparison with prior exami [facility]. Focal area spiculated soft tissue radiodensity is noted adjacent to the superior mesenteric vein and associated with multiple vascular clips at the site of the surgical bed. This measures abou t 21 millimeters in diameter in comparison with 14 millimeters in diameter on prior study and may rep resent recurrent disease. Slight prominence of mesenteric lymph nodes noted particularly in the mese nteric root, no bulky adenopathy seen. Adrenals appear normal. Kidneys are unremarkable in appearance with no renal mass, hydronephrosis, or nephrolithiasis. Abdominal aorta and major visceral branches appear intact. No focal bowel pathology. Appendix is normal. No evidence of diverticulitis. There is a ventral hernia containing unobstructed small bowel in a sub umbilical location. No focal bony lesion identified on scanning of the chest, abdomen, and pelvis. IMPRESSION: Indeterminate peripheral pulmonary ground-glass opacities, infectious process versus metastatic disea se, clinical correlation requested with appropriate follow-up studies. Increased prominence of a spiculated soft tissue mass now measuring 21 millimeters in diameter at the pancreatic bed, this previously measured 14 millimeters, suspicious for recurrent disease. RADIATION DOSE DELIVERED: 1,807.5mGy.cm Total DLP 1,807.5mGy.cm Total DLP RADIATION OPTIMIZATION: All CT scans at this facility use at least one of these dose optimization te chniques: automated exposure control; mA and/or kV adjustment per patient size (includes targeted exa ms where dose is matched to clinical indication); or iterative reconstruction.
[2020-08-10 09:40] LABS: CA 19-9 <2 U/mL (<35)
== END 2020-08-09 01:37 ==
PROVIDERS: PCP Nurse Practitioner; Visit Provider Internal Medicine Hematology & Oncology
DX: C25.0 Malignant neoplasm of head of pancreas (principal); Z92.3 Personal history of irradiation; Z12.89 Encounter for screening for malignant neoplasm of other sites; R91.8 Other nonspecific abnormal finding of lung field
CPT/HCPCS: 74177; 80053; 71260; 85025; 86301; J3490; Q9967

== ENCOUNTER 2021-01-27 02:54 | Outpatient (CLI) | payer BC, SELFPAY ==
[2021-01-27 15:56] LABS: Abs Immature Grans 0.02 10^3/uL (0.0-0.06); Absolute Basophil Count 0.05 10^3/uL (0.0-0.2); Absolute Eosinophil Count 0.11 10^3/uL (0.0-0.7); Absolute Lymphocyte Count 1.36 10^3/uL (1.2-3.4); Absolute Monocyte Count 0.54 10^3/uL (0.1-0.8); Basophils % 0.8; Eosinophils % 1.8; HCT 41.3 % (40.0-50.0); Immature Grans % 0.3; Lymphocytes % 22.4; MCH 30.1 pg (27.0-33.0); MCHC 33.9 % (32.0-36.0); MCV 88.8 fL (80-95); MPV 9.2 fL (8.0-11.0); Monocytes % 8.9; Neutrophils % 65.8; Nucleated RBC 0 %; Platelet Count 199 10^3/uL (130-400); RBC 4.65 10^6/uL (4.36-5.78); RDW-SD 42.4 fL; WBC 6.08 10^3/uL (4.4-10.8)
[2021-01-27 17:22] LABS: ALT 33 U/L (16-63); AST 22 U/L (15-37); Albumin 3.8 g/dL (3.4-5.0); Alkaline Phosphatase 57 U/L (46-116); Anion Gap 7.6 mmol/L (3-11); BUN 21 mg/dL (7-18); Bilirubin, Total 0.4 mg/dL (0.2-1.0); CO2 28.4 mmol/L (21.0-32.0); Calcium 8.9 mg/dL (8.5-10.1); Chloride 106 mmol/L (98-107); Glucose 101 mg/dL (74-106); Potassium 4.1 mmol/L (3.5-5.1); Sodium 142 mmol/L (136-145); Total Protein 7.4 g/dL (6.4-8.2)
[2021-01-30 11:47] LABS: CA 19-9 <2 U/mL (<35)
== END 2021-01-27 02:55 | disposition home or self-care (01) ==
LOC: LBO 02:54
PROVIDERS: PCP Nurse Practitioner; Visit Provider Internal Medicine Hematology & Oncology
DX: C25.9 Malignant neoplasm of pancreas, unspecified (principal)
CPT/HCPCS: 36415; 80053; 85025; 86301

== ENCOUNTER 2021-05-23 00:50 | Outpatient (CLI) | payer BC, SELFPAY ==
--- NOTE | 2021-05-23 | DI.CT_ITS ---
Exam(s) CT CHEST/ABD/PEL W EXAM: CT CHEST/ABD/PEL W CLINICAL HISTORY: PANCREATIC CA,C25.9,C25.0,ASSESS TREATMENT RESPONSE. TECHNIQUE: Imaging Protocol: Axial computed tomography images with coronal and sagittal reformatted images were created and reviewed CONTRAST MATERIAL: Intravenous: Omnipaque 350 Contrast volume:100 ml Oral: Yes. Oral contrast was administered for bowel opacification. COMPARISON: CT CT CHEST/ABD/PEL W from 08/09/2020 FINDINGS: CHEST: LUNGS: There are no pulmonary infiltrates nor pleural effusions. No metastatic appearing nodules. N o focal findings in the trachea and mainstem bronchi. MEDIASTINUM: There is no hilar nor mediastinal adenopathy. Visualized thyroid unremarkable. CARDIAC: Heart size is normal. There is no pericardial effusion.Caliber of the thoracic aorta is wit hin normal limits. OSSEOUS: No significant osseous lesions.Bilateral gynecomastia noted-moderate.. ABDOMEN: Evidence of prior Billroth-type surgery, apparent for pancreatic malignancy. There is no ascites. Gastrojejunostomy appears patent and the pre colic Lexi limb is slightly promine nt in diameter but not obstructed. No anastomosis leak at this level. There is, however, an anterior abdominal wall midline umbilical hernia which contains non edematous small bowel loops. No obstructio n at this level. LIVER: There are no focal hepatic lesions evident. GALLBLADDER/BILIARY: Gallbladder surgically absent. Biliary-enterostomy noted with no evidence of riley k at this level. No pneumobilia evident. PANCREAS: The remaining pancreatic body and tail appear unchanged from 08/09/2020. There does not laura ear to be new abnormal tissue in the pancreatic surgical bed. There is a slightly prominent lymph nod e interposed between the aorta and IVC just below the left renal vein which measures 0.8 x 0.5 cm, un changed from the prior study. There is no new prominent adenopathy. No new obvious vascular encasemen t. No thrombosis of the superior mesenteric vein, portal vein confluence, splenic vein, nor portal ve in. Celiac and superior mesenteric arteries are patent. SPLEEN: Spleen is not enlarged. There are no intrasplenic lesions. Splenic and portal veins are stern nt. ADRENALS: There are no significant adrenal masses. KIDNEYS: No calculi nor hydronephrosis. No solid renal masses. ABDOMINAL AORTA: Abdominal aorta is not enlarged. LYMPH NODES: No new para-aortic adenopathy. ABDOMINAL WALL: Anterior abdominal wall umbilical hernia which contains bowel loops, as described abo ve GI: There is no evidence of bowel obstruction.Colonic diverticulosis is noted. No obvious acute diver ticulitis. PELVIS: LYMPH NODES: There is no intrapelvic nor inguinal adenopathy. GI: No evidence of appendicitis.No evidence of sigmoid diverticulitis. URINARY BLADDER: No calculi nor masses evident REPRODUCTIVE: Enlarged prostate gland. OSSEOUS: No significant osseous lesions. Advanced disc space narrowing L5-S1 level noted IMPRESSION: 1. In this patient who has had prior Billroth-type surgery for pancreatic malignancy there does not a ppear to be new significant abnormal tissue in the pancreatic bed. The remaining pancreatic body and tail appear unchanged. Slightly prominent lymph node again noted between the IVC and aorta just below the left renal vein but no new gross lymphadenopathy nor vascular encasement. 2. No abnormal findings in the region of the bili 0 enterostomy nor at the gastrojejunostomy. However , there is again noted anterior abdominal wall umbilical hernia which contains small bowel loops whic h do not appear edematous. There is no evidence of bowel obstruction, free air, nor abscess. 3. No evidence of hepatic metastases. No osseous metastases. 4. Lungs are clear with no metastatic nodules, infiltrates, nor pleural effusions. There is also no i ntrathoracic adenopathy evident. Moderate bilateral gynecomastia noted. RADIATION DOSE DELIVERED: 2,027.82mGy.cm Total DLP DATA REPOSITORY: All CT scans at this facility are submitted to the National Radiology Data Registry (NRDR) Dose Index Registry (DIR) with the [employer] ([employer]). RADIATION OPTIMIZATION: All CT scans at this facility use at least one of these dose optimization te chniques: automated exposure control; mA and/or kV adjustment per patient size (includes targeted exa ms where dose is matched to clinical indication); or iterative reconstruction.
[2021-05-23 07:45] LABS: Abs Immature Grans 0.02 10^3/uL (0.0-0.06); Absolute Basophil Count 0.08 10^3/uL (0.0-0.2); Absolute Eosinophil Count 0.12 10^3/uL (0.0-0.7); Absolute Lymphocyte Count 1.73 10^3/uL (1.2-3.4); Absolute Monocyte Count 0.56 10^3/uL (0.1-0.8); Absolute Neutrophil Count 2.72 10^3/uL (1.2-6.7); Basophils % 1.5; Eosinophils % 2.3; HCT 45.7 % (40.0-50.0); HGB 15.2 g/dL (13.5-17.5); Immature Grans % 0.4; Lymphocytes % 33.1; MCH 30.2 pg (27.0-33.0); MCHC 33.3 % (32.0-36.0); MCV 90.7 fL (80-95); MPV 9.5 fL (8.0-11.0); Monocytes % 10.7; Nucleated RBC 0 %; Platelet Count 189 10^3/uL (130-400); RBC 5.04 10^6/uL (4.36-5.78); RDW 12.7 % (11.8-14.1); WBC 5.23 10^3/uL (4.4-10.8)
[2021-05-23] MEDS: Omnipaque 350 MG/ML 50 ML BTL PO (07:50)
[2021-05-23] MEDS: Breeza Beverage 473 ML BTL PO ×2 (07:50→07:51)
[2021-05-23 08:07] LABS: ALT 37 U/L (16-63); AST 24 U/L (15-37); Alkaline Phosphatase 62 U/L (46-116); Anion Gap 6.1 mmol/L (3-11); BUN 17 mg/dL (7-18); Bilirubin, Total 0.5 mg/dL (0.2-1.0); CO2 29.9 mmol/L (21.0-32.0); Calcium 8.7 mg/dL (8.5-10.1); Chloride 103 mmol/L (98-107); Glucose 93 mg/dL (74-106); Sodium 139 mmol/L (136-145); Total Protein 7.8 g/dL (6.4-8.2)
[2021-05-23] MEDS: Omnipaque 350 MG/ML 100 ML BTL IJ (09:03)
[2021-05-24 11:19] LABS: CA 19-9 <2 U/mL (<35)
== END 2021-05-23 01:10 ==
PROVIDERS: Internal Medicine Hematology & Oncology; PCP Nurse Practitioner; Visit Provider Nurse Practitioner Family
DX: C25.0 Malignant neoplasm of head of pancreas; N62 Hypertrophy of breast
CPT/HCPCS: 74177; 80053; 71260; 85025; 86301; J3490; Q9967

== ENCOUNTER 2022-02-23 01:39 | Outpatient (CLI) | payer BC, SELFPAY ==
--- OUTSIDE RECORDS SUMMARY | 2022-02-23 01:41 | XMS_ITS | Encounter Summary ---
:1960 Author Organization [facility] [place] [address] Care Team Providers Name Role Phone Corrie Pacheco APRN Primary Care Provider Encounter Details Date Type Department Care Team Description 11/21/2021 TH Visit Hematology/Oncology Gigi Sosa neoplasm of (TeleHealth) at [facility] MD Will head of [address] [place] [address] ONCOLOGY [phone] [place] [id number] Social History Tobacco Use Types Packs/Day Years Used Date Never Smoker Smokeless Tobacco: Never Used Alcohol Use Standard Drinks/Week Comments Yes 0 (1 standard drink = 0.6 oz pure alcoho l) 2-3X/month occasional Alcohol Habits Answer Date Recorded How often do you have a drink containing alcohol? Never 04/16/2018 How many drinks containing alcohol do you have on Not asked a typical day when you are drinking? How often do you have six or more drinks on one Not asked occasion? Comment: 2-3X/month occasional 11/02/2020 Financial Resource Strain Answer Date Recorded How hard is it for you to pay for the very basics like Not v avery hard 11/02/2020 food, housing, medical care, and heating? Food Insecurity Answer Date Recorded Within the past 12 months, you worried that your food would Never true 11/02/2020 run out before you got money to buy more. Within the past 12 months, the food you bought just didn't N ever true 11/02/2020 last and you didn't have money to get more. Transportation Needs Answer Date Recorded In the past 12 months, has lack of transportation kept you f rom No 11/02/2020 medical appointments or from getting medications? In the past 12 months, has lack of transportation kept you f rom No 11/02/2020 meetings, work, or getting things needed for daily living? Housing Stability Answer Date Recorded In the last 12 months, was there a time when you were not ab le No 11/02/2020 to pay the mortgage or rent on time? In the last 12 months, how many places have you lived? 1 11/02/2020 In the last 12 months, was there a time when you did not hav e a No 11/02/[address] sleep or slept in a senior care (including now)? Sex Assigned at Date Recorded Male 07/24/2020 7:58 PM EDT documented as of this encounter Progress Notes Gigi Sosa MD - 11/21/2021 4:30 PM EDT Subjective: Patient ID: Jaciel Combs is 61 y.o. Problem List: 1. Pancreatic cancer; pT2N0 A. Presented with jaundice and abdominal pain. CT abd/pelvis 03/31/18 - Impression: Intrahepatic and extrahepatic biliary ductal dilatation. The gallbladder is somewhat distended. A lesion at the head of the pancreas/duodenum is not excluded. Further evaluation could be obtained witha CT scan of the pelvis utilizing pancreatic protocol. Suspect some degree of constipation. Clinical correlation is recommended. Correlation with the patient's PSA is recommended. B. Upper EUS 04/04/18 - Impression: 21 x 21 mm mass in the lateral pancreatic head s/p FNA. The massdoes not involve the vasculature Cytology - Pancreas, head (EUS-guided FNA): Carcinoma with acinar and ductal differentiation (see note). Note: The lesional cells are immunoreactive for Trypsin, CK7, CK19, MUC1 (focal) and monoclonal CEA(focal); they are negative for synaptophysin and may- catenin (negative for nuclear staining). [id number] is retained in lesional cells. ??Overall, the cytomorphology and immunostain findings raise the possibility of a mixed acinar-ductal carcinoma. ERCP 04/04/18 - Impression: Distal CBD stricture - likely malignant - s/p placement of 10 mm x [address] mmun[address] Wall[address] c/a/p 04/04/18 - IMPRESSION 1. Hypodense mass noted along RIGHT lateral border of the pancreatic head, compatible with a history of pancreatic neoplasm.. No vascular involvement. 2. No evidence of metastasis. D. Discussed at GI Tumor Board 04/16/18, images reviewed. There is no evidence of metastatic disease. The primary tumor appears resectable. E. 05/05/18 - Whipple procedure Path - A - Head of pancreas, antrum, duodenum for frozen section Pancreatic ductal adenocarcinoma, well-differentiated (pT2 N0), margins negative. See synoptic report. See dicussion #1. B - Common hepatic artery lymph node One lymph node negative for carcinoma (0 / 1). C - Gallbladder: Gallbladder within normal limits. Synoptic report: Specimen ?Procedure: ??Pancreaticoduodenectomy (Whipple resection), partial pancreatectomy Tumor ?Tumor Site: ??Pancreatic head ?Histologic Type: ?? Ductal adenocarcinoma ?Histologic Grade: ?? G1: Well differentiated ?Tumor Size: ?? 2.3 x 2 x 2 Centimeters (cm) ?Tumor Extent ? Tumor Extension: ?? Tumor invades duodenal wall, Tumor invades peripancreatic soft tissues ?Accessory Findings ? Treatment Effect: ?? No known presurgical therapy ? Lymphovascular Invasion: ?? Not identified ? Perineural Invasion: ?? Present Margins ?Margins: ??All margins are uninvolved by invasive carcinoma and high-grade intraepithelial neoplasia ? Margins Examined: ?? Pancreatic neck / parenchymal, Uncinate (retroperitoneal / superior mesenteric artery), Bile duct, Proximal (gastric or duodenal), Distal (duodenal or jejunal), Vascular groove ? Distance of Invasive Carcinoma from Closest Margin: ?3 Millimeters (mm) ? Closest Margin: ?? Vascular groove Lymph Nodes ?Number of Lymph Nodes Involved: ?0 ?Number of Lymph Nodes Examined: ?2 Pathologic Stage Classification (pTNM, AJCC 8th Edition) ?Primary Tumor (pT): ?? pT2 ?Regional Lymph Nodes (pN): ?? pN0 Additional Findings ?Additional Pathologic Findings: ?? Pancreatic intraepithelial neoplasia ? Highest Grade (PanIN): ?? 2 DISCUSSION 1. Prior diagnosis questioning ductal adenocarcinoma vs mixed ductal and acinar carcinoma is noted.Immunohistochemical and morphological features are consistent with ductal adenocarcinoma. No evidence of acinar differentiation is seen. F. 06/25/18 - Began adjuvant chemotherapy with Folfirinox, s/p 12 cycles, completed 11/24/[address] c/a/p 08/09/20 - Impression: Indeterminate peripheral pulmonary ground-glass opacities, infectious process versus metastatic disease, clinical correlation requested with appropriate follow-up studies. Increased prominence of a spiculated soft tissue mass now measuring 21 mm in diameter at the pancreatic bed, this previously measured 14 mm, suspicious for recurrent disease. [facility] second read - IMPRESSION ?? 1. Unexpected finding: Enlarging central mesenteric soft tissue nodule at the level of mesentericsurgical clips. 2. Second mesenteric soft tissue nodule at the additional surgical clips stable. 3. New poorly defined dual upper lobe groundglass opacities accompany new lower lobe peripheral subpleural airspace opacities. Cannot distinguish infectious or inflammatory etiology from metastatic disease. Short-term follow-up for this unexpected finding is suggested. PET scan 08/23/20 - IMPRESSION 1. Small focus of FDG avid soft tissue fullness in the pancreatic head resection bed, highly suspicious for local tumor recurrence. 2. Bilateral FDG avid opacities in the bilateral posterior upper and lower lobes, markedly increased in size compared to recent CT of 08/09/2020 and consistent with an interval inflammatory/infectious process. 3. Multiple FDG avid lymph nodes in the bilateral supraclavicular, bilateral mediastinal, and bilateral hilar regions, which are nonspecific and favored to represent inflammatory adenopathy due to theabove-mentioned pneumonia. Consider short interval follow-up PET/CT to ensure resolution. 4. Small FDG avid lymph nodes in the right axilla are consistent with benign reactive nodes due to recent Covid vaccination in the right arm. PET scan 10/18/20 - IMPRESSION 1. Enlarging pancreatic bed recurrence 2. Resolution of FDG avid pulmonary opacities and near complete resolution of FDG avid thoracic adenopathy consistent with resolved infection 3. RIGHT heart enlargement H. SBRT to pancreatic bed - 50 in 5 fractions, completed 12/22/[address] c/a/p 05/23/21 - Impression: 1. In this patient who has had prior Billroth type surgery for pancreatic malignancy there does notappear to be new significant abnormal tissue in the pancreatic bed. The remaining pancreatic body and tail appear unchanged. Slightly prominent lymph node again noted between the IVC and aorta just below the left renal vein but no gross lymphadenopathy nor vascular encasement. 2. No abnormal findings in the region of the bili enterostomy nor at the gastrojejunostomy. Howeverthere is again noted anterior abdominal wall unbilical hernia which contains small bowel loops whichdo not appear edematous. There is no evidence of bowel obstruction, free air, nor abscess. 3. No evidence of hepatic metastases. No osseous metastases. 4. Lungs are clear with no metastatic nodules, infiltrates nor pleural effusions. There is no intrathoracic adenopathy evident. Moderate bilateral gynecomastia present. ([facility] review) - IMPRESSION ?? There is no evidence of local tumor recurrence in this examination. Multiple abdominal soft tissue nodules or lymph nodes, consistent with metastases, have become smaller in size. CT c/a/p 11/15/21 - IMPRESSION ?? 1. Stable exam. Post Whipple procedure. No evidence of local recurrence or complication. 2. Stable, borderline enlarged mesenteric lymph node. Possibly reactive. ?? HPI Jaciel Combs is seen in f/u of pancreatic cancer. The history is summarized above. 05/05/18 - robotic Whipple procedure by Dr. Collazo. Path report is above. 06/25/18 - 11/24/18: adjuvant chemotherapy with Folfirinox x 12 cycles. 10/2020 - PET scan c/w local recurrence of disease. SBRT to pancreatic bed, completed 12/2020. This is a Telephone encounter. It was meant to be a TeleHealth encounter but the TeleHealth system was not working today. Jaciel is feeling very well. He is eating well and maintaining his weight. He has no abdominal pain or pain elsewhere. 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 He is thinking about prison. His bowels are regular. 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 HENT: Negative. Respiratory: Negative. Cardiovascular: Negative. Gastrointestinal: Negative for abdominal pain, constipation, diarrhea and nausea. Genitourinary: Negative. Musculoskeletal: Negative. Skin: Negative for color change. Neurological: Positive for numbness. Hematological: Negative. Psychiatric/Behavioral: Negative. Objective: Physical Exam Vitals reviewed. Constitutional: General: He is not in acute distress. HENT: Head: Normocephalic and atraumatic. Mouth/Throat: Pharynx: Oropharynx is clear. Eyes: General: No scleral icterus. Cardiovascular: Rate and Rhythm: Normal rate and regular rhythm. Pulmonary: Effort: Pulmonary effort is normal. No respiratory distress. Breath sounds: No wheezing or rales. Chest: Breasts: Right: No supraclavicular adenopathy. Left: No supraclavicular adenopathy. Abdominal: General: There is no distension. Palpations: There is no mass. Tenderness: There is no abdominal tenderness. Musculoskeletal: General: No swelling. Lymphadenopathy: Cervical: No cervical adenopathy. Upper Body: Right upper body: No supraclavicular adenopathy. Left upper body: No supraclavicular adenopathy. Skin: General: Skin is warm and dry. Findings: No rash. Neurological: General: No focal deficit present. Mental Status: He is alert. Coordination: Coordination normal. Psychiatric: Mood and Affect: Mood normal. Thought Content: Thought content normal. Labs: Latest Reference Range & Units 07/13/22 14:38 WBC 4.0 - 9.5 x10(3)/mcL 6.4 RBC 4.58 - 5.54 x10(6)/mcL 5.17 Hemoglobin 13.7 - 16.5 g/dL 15.6 Hematocrit 40.5 - 48.5 % 45.4 MCV 82.9 - 93.1 fL 87.8 MCH 27.5 - 32.1 pg 30.2 MCHC 32.0 - 35.7 g/dL 34.4 RDWSD 36.0 - 45.0 fL 41.5 RDWCV 11.4 - 13.8 % 12.7 Platelets 145 - 357 x10(3)/mcL 194 MPV 7.6 - 12.9 fL 9.5 nRBC % Auto % 0.0 nRBC Abs Auto 0.000 - 0.000 x10(3)/mcL 0.000 Neutr Abs (ANC) 1.70 - 6.10 x10(3)/mcL 3.88 Neutrophils % % 60.9 Immature Gran % % 0.30 Lymphocytes % % 26.7 Monocytes % % 9.6 Eosinophils % % 1.4 Basophils % % 1.1 [place] Gran Abs 0.00 - 0.04 x10(3)/mcL 0.02 Lymphocytes Abs 0.9 - 3.2 x10(3)/mcL 1.7 Monocyte Abs 0.3 - 0.9 x10(3)/mcL 0.6 Eosinophils Abs 0.0 - 0.4 x10(3)/mcL 0.1 Basophils Abs 0.0 - 0.1 x10(3)/mcL 0.1 Sodium 135 - 145 mmol/L 139 Potassium 3.5 - 5.0 mmol/L 3.9 Chloride 98 - 107 mmol/L 103 CO2 22 - 31 mmol/L 27 Anion Gap 5 - 15 mmol/L 9 BUN 10 - 20 mg/dL 19 Creatinine 0.80 - 1.50 mg/dL 1.03 Estimated GFR >=60 mL/min/1.73 m?? 83 Calcium 8.5 - 10.5 mg/dL 9.2 Glucose Lvl 65 - 199 mg/dL 92 Total Protein 6.1 - 8.0 g/dL 7.6 Albumin 3.2 - 5.2 g/dL 4.5 Total Bilirubin 0.2 - 1.3 mg/dL 0.5 Alk Phos 40 - 130 unit/L 56 AST 0 - 39 unit/L 22 ALT 0 - 55 unit/L 27 CA 19-9 <=35.0 u/ml <2.0 CA 19-9 11/15/21 <2 05/23/21 <2 01/27/21 <2 10/18/20 <2 08/09/20 <2 11/10/19 <2 07/14/19 <2 05/19/19 <2 01/02/19 <2 06/06/18 3 04/15/[address] scan personally reviewed, report above. Images reviewed with patient. Assessment and Plan: Mr. Combs is 61 yo, seen in f/u of pancreatic cancer, s/p Whipple procedure with subsequent local recurrence. Presented late 03/[address] - intra and extrahepatic biliary ductal dilatation and question of a mass in the duodenum or head of the pancreas. 04/04/18 - ERCP with stent placement and Upper EUS. A mass was seen in the lateral aspect of the head of the pancreas without vascular involvement. There was concern for duodenal invasion. FNB - carcinoma with acinar and ductal differentiation. CT c/a/p 04/04/18 - no evidence of distant metastatic disease. The primary tumor was seen along the right lateral border of the pancreatic head, abutting the duodenum. There was no vascular involvement. 05/05/18 - robotic whipple procedure. Path - well diff adenocarcinoma with invasion of peripancreatic soft tissues, pT2. 2 LNs seen, both negative, pN0. Margins of resection - negative. No acinar differentiation was seen in this specimen. 06/25/18 - began adjuvant chemotherapy with Folfirinox, completed the planned 12 cycles on 11/24/18. CT done 08/09/20 showed a couple of findings of concern. There were groundglass opacities in the lungs, the appearance of which was more suggestive of inflammatory/infectious etiology although he didn't have symptoms to suggest respiratory infection. There was also an enlarging mesenteric soft tissue nodule in the surgical bed and a second stable mesenteric soft tissue nodule. I communicated with Dr. Soto. It may be possible to reach this area by upper EUS and perform a bx but it may be difficult. We decided to do a PET scan. This was done 08/23/20. The soft tissue abnormality in the pancreatic bed was FDG avid, consistent with disease recurrence. There were multiple other areas of increased uptake in the chest, possibly reactive. The right axillary LN was felt likely to be related to the covid vaccine shot given on 08/14 (it was given in the right arm). Other areas of dayanara uptake may be related to what appears to an inflammatory/infectious process in the bilateral lungs. A PET scan was repeated on 10/18/20 - increase in the FDG avid soft tissue focus in the pancreatic bed, now measuring 1.8 cm. There was resolution of the FDG avid pulmonary opacities and near complete resolution of FDG avid thoracic adenopathy consistent with resolved infection. GITB 10/24/20 - Options Discussed: Locally directed therapy felt to be reasonable. Several options including surgery (may be difficult given previous surgery), ablation and SBRT. SBRT favored by group. Recommendations: Referral to Radiation Oncology for consideration of SBRT. Also, has not yet been seen by Familial Cancer program, referral recommended. SBRT to pancreatic bed - 50 in 5 fractions, completed 12/22/[address] c/a/p was done 11/15/21. There is no evidence of disease recurrence/progression. There still appears to be some soft tissue at the site of presumed local recurrence but it is stable. No further intervention is planned at this time. I will see him in three months and plan a restaging CT scan in 6 months, sooner if clinically indicated. I provided care to the patient today via telephone call. The total time associated with this visit, including time spent reviewing the CT scan, was 30 minutes. documented in this encounter Plan of Treatment Upcoming Encounters Date Type Specialty Care Team Description 02/23/2022 Office Visit Hematology and Oncology Gigi Sosa MD [facility] [address] Ebonie Gordon, [address] [place] [address] Scheduled Orders Name Type Priority Associated Diagnoses Order S chedule CBC (with Diff) Lab Routine Malignant neoplasm of Exp ected: 02/21/2022 head of pancreas (Approximat e), Expires: 2022 Comprehensive metabolic Lab Routine Malignant neoplas m of Expected: 02/21/2022 panel (non-fasting) head of pancreas (Akhil roximate), Expires: 2022 Carbohydrate Antigen 19-9 Lab Routine Malignant neopl asm of Expected: 02/21/2022 head of pancreas (Approximat e), Expires: 2022 documented as of this encounter Visit Diagnoses Diagnosis Malignant neoplasm of head of pancreas documented in this encounter 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
--- OUTSIDE RECORDS SUMMARY | 2022-02-23 01:41 | XMS_ITS | Encounter Summary ---
:1960 Author Organization [facility] [place] [address] Care Team Providers Name Role Phone Corrie Pacheco APRN Primary Care Provider Encounter Details Date Type Department Care Team Description 02/13/2021 TH Visit Radiation Oncology Marco Carlson I, Malign ant neoplasm of (TeleHealth) [place] [facility] [place] head of pancreas [facility] [address] [place] RADIATION [id number] ONCOLOGY [phone] [place], [place] [address] Social History Tobacco Use Types Packs/Day Years [...] place to sleep or slept in a half-way (including now)? 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 Pathologically this was a pT2 N0 M0 with negative margins. The patient finished 12 cycles of FOLFIRINOX. He has been on surveillance and most recently developed a local relapse in the pancreatic tumor bed with a PET positive lesion growing in size. The patient has no evidence of metastases. His CA 19-9 is not expressive Patient Active Problem List Diagnosis ??? Mass of pancreas Added automatically from request for surgery [id number] ??? Severe protein-calorie malnutrition Pt had had voluntary wt loss earlier in the year but has lost 8% body wt in past 3 months. Pt has temporal wasting and > 7.5% wt loss in past 3 months c/w severe protein calorie type malnutrition. ??? Pancreatic cancer ??? Exocrine pancreatic insufficiency ??? Malignant neoplasm of head of pancreas History of Present Illness: Mr.Howard Bassam Combs is a very pleasant 59-year-old male patient who has been diagnosed with adenocarcinoma the pancreas. The patient had pancreaticoduodenectomy performed on May 05, 2018 for pancreatic head mixed acinar/ductal carcinoma. The patient had no evidence of metastases prior to the procedure. The lesion was considered to be resectable on CT scan. The pathology came back positivefor: Path - A - Head of pancreas, [...] No evidence of acinar differentiation is seen. The patient tolerated the procedure well. He began adjuvant chemotherapy with FOLFIRINOX in June2018 and completed 12 cycles by November 2018. Surveillance CT of the chest abdomen pelvis done on 2020 showed increased prominence of a spiculated soft tissue mass measuring 21 mm in diameter at the pancreatic bed. The lesion is suspicious for recurrent disease. PET scan was performed on August 23, 2020 showin. ??Small focus of FDG avid soft tissue fullness in the pancreatic head resection bed, highly suspicious for local tumor recurrence. 2. ??Bilateral FDG avid opacities in the bilateral posterior upper and lower lobes, markedly increased in size compared to recent CT of 08/09/2020 and consistent with an interval inflammatory/infectiousprocess. 3. ??Multiple FDG avid lymph nodes in the bilateral supraclavicular, bilateral mediastinal, and bilateral hilar regions, which are nonspecific and favored to represent inflammatory adenopathy due to the above-mentioned pneumonia. Consider short interval follow-up PET/CT to ensure resolution. 4. ??Small FDG avid lymph nodes in the right axilla are consistent with benign reactive nodes due to recent Covid vaccination in the right arm. ?? PET scan was repeated on 10/18/20: - IMPRESSION 1. ??Enlarging pancreatic bed recurrence 2. ??Resolution of FDG avid pulmonary opacities and near complete resolution of FDG avid thoracic adenopathy consistent with resolved infection 3. ??RIGHT heart enlargement His CA 19-9 has been nonexpressive. The patient continues to be completely asymptomatic. 12/22/2020: Completed SBRT 50 Gy in 5 fractions to the locally recurrent lesion. He tolerated the treatment well. He has no side effects. He denies abdominal pain, nausea or vomiting. Past Medical History: Diagnosis Date ??? Pancreatic cancer Past Surgical History: Procedure Laterality Date ??? CHOLECYSTECTOMY ??? IR MEDIPORT PLACEMENT 06/16/2018 IR Mediport Placement / Exchange 06/16/2018 RjAbhijeet, PATTERN LEASE INSPECTOR [facility] INTERVENTIONL RAD ??? IR MEDIPORT REMOVAL 01/13/2019 IR Mediport Removal 01/13/2019 Ezra Vela, PATTERN LEASE INSPECTOR [facility] INTERVENTIONL RAD ??? PRO ENDOSCOPIC US EXAM, ESOPH N/A 04/04/2018 UPPER EUS- ENDOSCOPIC ULTRASOUND performed by Felipe Soto MD at [facility] ENDOSCOPY ? ? PRO ERCP BILIARY OR PANCREATIC DUCT STENT REMOVAL & EXCHANGE W/DIL&WIRE 04/16/2018 ERCP, W REMOVAL& EXCHANGE STENT, BILIARY/PANCREATIC DUCT performed by Mahamed Bro MD at [facility] ENDOSCOPY ??? PRO ERCP STENT PLACEMENT BILIARY OR PANCREATIC DUCT 04/04/2018 ERCP, W PLCMNT ENDOSCOPIC STENT BILIARY OR PANCREATIC DUCT performed by Felipe Soto MD at [facility] ENDOSCOPY ??? PRO ERCP, SPHINCTEROTOMY N/A 04/04/2018 ERCP W/SPHINCTEROTOMY/PAPILLOTOMY performed by Felipe Soto MD at [facility] ENDOSCOPY ??? PRO ERCP, W/REMOVAL STONE, ZAHIDA/PANCR DUCTS 04/16/2018 ERCP W/REMOVAL CALCULI/DEBRIS FROM BILARY/PANCREATIC DUCT(S) performed by Mahamed Bro MD at [facility] ENDOSCOPY ??? PRO ERCP,DIAGNOSTIC N/A 04/16/2018 ERCP performed by Mahamed Bro MD at [facility] ENDOSCOPY ??? PRO LAP, DIAGNOSTIC ABDOMEN N/A 04/23/2018 LAPAROSCOPY, DIAGNOSTIC, ABDOMEN (WRVU 5.14) performed by Lázaro Collazo MD at [facility] OSC ??? PRO UNLISTED PX PNCRS N/A 05/05/2018 ROBOTIC PANCREATECTOMY,WHIPPLE, PARTIAL GASTRECTOMY W/ PANCREATOJEJUNOSTOMY performed by Lázaro Collazo MD at [facility] MAIN OR Medications 01/30/21 1407 Medication Sig Taking? CREON 24,000-76,000 -120,000 unit Capsule, Delayed Release(E.C.) TAKE 1 TO 2 CAPSULES BY MOUTH 3 TIMES DAILY WITH MEALS AND 1 CAPSULE WITH SNACKS. MAX 9 CAPS PER DAY. Patient not taking: Reported on 11/10/2019 No Known Allergies Social History Socioeconomic History ??? Marital status: Spouse name: Demi Combs ??? Number of children: 0 ??? Years of education: 16 ??? Highest education level: Not on file Occupational History ??? Not on file Tobacco Use ??? Smoking status: Never Smoker ??? Smokeless tobacco: Never Used Vaping Use ??? Vaping Use: Never used Substance and Sexual Activity ??? Alcohol use: Yes Comment: 2-3X/month occasional ??? Drug use: No ??? Sexual activity: Yes Partners: Female Other Topics Concern ??? Not on file Social History Narrative ??? Not on file Social Determinants of Health Financial Resource Strain: Low Risk ??? Difficulty of Paying Living Expenses: Not very hard Food Insecurity: No Food Insecurity ??? Worried About Running Out of Food in the Last Year: Never true ??? Ran Out of Food in the Last Year: Never true Transportation Needs: No Transportation Needs ??? Lack of Transportation (Medical): No ??? Lack of Transportation (Non-Medical): No Physical Activity: ??? Days of Exercise per Week: Not on file ??? Minutes of Exercise per Session: Not on file Housing Stability: Low Risk ??? Unable to Pay for Housing in the Last Year: No ??? Number of Places Lived in the Last Year: 1 ??? Unstable Housing in the Last Year: No Family History Problem Relation Age of Onset ??? Cancer Father Physical Examination: Temp: -- Heart Rate: -- Resp: -- BP: ()/() SpO2: -- Heart Rate from SpO2: -- KPS: 80. No evidence of peripheral adenopathy. Abdomen: Soft with no organomegaly. Lower extremity: No edema. 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 Pathologically this was a pT2 N0 M0 with negative margins. The patient finished 12 cycles of FOLFIRINOX. He has been on surveillance and most recently developed a local relapse in the pancreatic tumor bed with a PET positive lesion growing in size. The patient has no evidence of metastases. His CA 19-9is not expressive. He completed SBRT for the locally recurrent lesion. Plan: Repeat CT scan in a month 4 months follow-up ([facility]) ?? documented in this encounter Plan of Treatment Upcoming Encounters Date Type Specialty Care Team Description 02/23/2022 Office Visit Hematology and Oncology Gigi Sosa MD [facility] [place] [address] Ebonie Gordon APRN [address] [place] [address] DR MEDICAL ONCOLOGY [place], [place] [id number] documented as of this encounter Visit Diagnoses Diagnosis Malignant neoplasm of head of pancreas documented in this encounter Care Teams Bight Maker Relationship Specialty Start Date End Date Corrie Pacheco APRN PCP - General Family Medicine 04/04/[address] [place], [place] [id number] documented as of this encounter
--- OUTSIDE RECORDS SUMMARY | 2022-02-23 01:41 | XMS_ITS | Encounter Summary ---
:1960 Author Organization [facility] [place] [address] Care Team Providers Name Role Phone Corrie Pacheco APRN Primary Care Provider Reason for Visit Reason Comments Procedure Encounter Details Date Type Department Care Team Description 12/20/2020 Procedure visit Radiation Oncology Marco Carlson I, Mal ignant neoplasm of at [facility] MD head of pancreas [facility] [address] [place] RADIATION [id number] ONCOLOGY [phone] [place], [place] [address] Social History Tobacco Use Types [...] place to sleep or slept in a fpc (including now)? Sex Assigned at Date Recorded Male 07/24/2020 7:58 PM EDT documented as of this encounter Last Filed Vital Signs Vital Sign Reading Time Taken Comments Blood Pressure 130/69 12/20/2020 12:35 PM EDT Pulse 56 12/20/2020 12:35 PM EDT Temperature 37 ??C (98.6 ??F) 12/20/2020 12:35 PM EDT Respiratory Rate 17 12/20/2020 12:35 PM EDT Oxygen Saturation 100% 12/20/2020 12:35 PM EDT Inhaled Oxygen Concentration - - Weight 85 kg (187 lb 6.4 oz) 12/20/2020 12:35 PM EDT Sh oes on Height - - Body Mass Index 28.24 10/18/2020 1:21 PM EDT documented in this encounter Progress Notes Marco Carlson MD - 12/20/2020 1:00 PM EDT Images from the original note were not included. Radiation Oncology SBRT Procedure Note Patient Identity: Patient name: Jaciel Combs Date of : 1960 Chief complaint: Day 1: mild anxiety Day 2: No nausea or vomiting. Day 3: No pain, nausea or vomiting Day 4: no changes Oncologic History: Mr.Howard Bassam Combs is a very pleasant [...] of metastases. His CA 19-9 is not expressive. Clinical trial: None Medications 12/20/20 1245 Medication Sig Taking? CREON 24,000-76,000 -120,000 unit Capsule, Delayed Release(E.C.) TAKE 1 TO 2 CAPSULES BY MOUTH 3 TIMES DAILY WITH MEALS AND 1 CAPSULE WITH SNACKS. MAX 9 CAPS PER DAY. Patient not taking: Reported on 11/10/2019 Exam: Temp: [37 ??C (98.6 ??F)] Heart Rate: [56] Resp: [17] BP: (130)/(69) SpO2: [100 %] Heart Rate from SpO2: -- KPS: 80. No evidence of peripheral adenopathy. Abdomen: Soft with no organomegaly. Lower extremity: No edema. Treatment: Intent: Curative Site: Pancreatic bed Prescription: 50 Gy in 5 fractions Technique: SBRT/MRI guided Radiation Therapy Procedure Detail: ??? Mr. Combs was in the radiation oncology clinic today for stereotactic body radiation therapy to treat the above diagnosis on the InotremT system. he was evaluated pre- treatment in the clinic, and has no contraindications for proceeding with treatment. he was premedicated with Ativan. Pre-treatment contrast was not administered. ??? he was brought to the treatment area and name and were verified as was the site of treatment. he was setup in a similar fashion as at the time of simulation. ??? Initial IGRT was accomplished with high-resolution MRI imaging. The treatment plan was verified:target coverage was adequate but OAR doses were Not acceptable. Due to the above an online adaptive re-plan was performed and a modified plan was formulated. The delivered/adapted plan met the necessary criteria to ensure adequate target coverage and safety (ie OAR doses). ??? he was monitored continuously during treatment delivery with the real-time cine-loop MRI imaging. ??? his 4th of 5 SBRT treatments was successfully delivered. Impression/Plan: Impression: Jaciel Combs tolerated treatment without incident. Plan: ?? Continue radiation therapy as planned. documented in this encounter Plan of Treatment Upcoming Encounters Date Type Specialty Care Team Description 02/23/2022 Office Visit Hematology and Oncology Gigi Sosa MD [facility] [place] [address] Ebonie Gordon APRN [address] [place] [address] DR MEDICAL ONCOLOGY [place], [place] [id number] documented as of this encounter Visit Diagnoses Diagnosis Malignant neoplasm of head of pancreas documented in this encounter Administered Medications Inactive Administered Medications - up to 3 most recent administrations Medication Order MAR Action Action Date Dose Rate Site LORazepam (Ativan) tablet 1 mg Given 12/20/2020 1:11 PM EDT 1 mg 1 mg, Oral, ONCE, 1 dose, On Sat12/20/20 at 1315, Routine documented in this encounter Care Teams Leather Belt Shaper Relationship Specialty Start Date End Date Corrie Pacheco APRN PCP - General Family Medicine 04/04/[address] [place] [place] [address] documented as of this encounter
--- OUTSIDE RECORDS SUMMARY | 2022-02-23 01:41 | XMS_ITS | Encounter Summary ---
:1960 Author Organization [facility] [place] [address] Care Team Providers Name Role Phone Corrie Pacheco APRN Primary Care Provider Encounter Details Date Type Department Care Team Description 01/30/2021 Office Visit Hematology/Oncology Antoinette Rodriguez recurrence of pancreatic cancer; at [facility] DAMIEN Balderas Malignant neoplasm of head of pancreas [address] [place], [place] HEMATOLOGY ONCO LOGY [address] [place], [place] [phone] (Wo rk) Social History Tobacco Use Types Packs/Day Years [...] place to sleep or slept in a correction (including now)? Sex Assigned at Date Recorded Male 07/24/2020 7:58 PM EDT documented as of this encounter Last Filed Vital Signs Vital Sign Reading Time Taken Comments Blood Pressure 130/64 01/30/2021 2:05 PM EDT Pulse 61 01/30/2021 2:05 PM EDT Temperature 36.7 ??C (98.1 ??F) 01/30/2021 2:05 PM EDT Respiratory Rate 20 01/30/2021 2:05 PM EDT Oxygen Saturation 100% 01/30/2021 2:05 PM EDT Inhaled Oxygen Concentration - - Weight 87.6 kg (193 lb 3.2 oz) 01/30/2021 2:05 PM EDT Height 173.5 cm (5' 8.31) 01/30/2021 2:05 PM EDT Body Mass Index 29.11 01/30/2021 2:05 PM EDT documented in this encounter Progress Notes Antoinette Rodriguez, MEASUREMENT OPERATOR - 01/30/2021 1:30 PM EDT Subjective: Patient ID: Jaciel Combs is a 60 y.o. male. Patient Active Problem List Diagnosis ??? Mass of pancreas Added automatically from request for surgery [id number] ??? Severe protein-calorie malnutrition Pt had had voluntary wt loss earlier in the year but has lost 8% body wt in past 3 months. Pt has temporal wasting and > 7.5% wt loss in past 3 months c/w severe protein calorie type malnutrition. ??? Pancreatic cancer ??? Exocrine pancreatic insufficiency ??? Malignant neoplasm of head of pancreas HPI Mr. Combs is 59 yo, seen in f/u of pancreatic cancer. ?? Presented late 03/[address] - [...] - carcinoma with acinar and ductal differentiation. ?? CT c/a/p 04/04/18 - no evidence of distant metastatic disease. The primary tumor was seen along the right lateral border of the pancreatic head, abutting the duodenum. There was no vascular involvement. ?? 05/05/18 - robotic whipple procedure. Path - well diff adenocarcinoma with invasion of peripancreatic soft tissues, pT2. 2 LNs seen, both negative, pN0. Margins of resection - negative. No acinar differentiation was seen in this specimen. ?? 06/25/18 - began adjuvant chemotherapy with Folfirinox, completed the planned 12 cycles on 11/24/18. ?? CT done 08/09/20 showed a couple of [...] a bx but it may be difficult. ?? We decided to do a PET scan. This was done 08/23/20. The soft tissue abnormality in the pancreatic bed is FDG avid, consistent with disease recurrence. There were multiple other areas of increased uptake in the chest, possibly reactive. The right axillary LN was felt likely to be related to the covid vaccine shot given on 08/14 (it was given in the right arm). Other areas of dayanara uptake may be relatedto what appears to an inflammatory/infectious process in the bilateral lungs. We talked about whether this may be related to covid infection and I spoke with the covid hotline. Given that he was feeling much better, asymptomatic at that time, testing was not recommended as it would not slubber frame changer or recommendations regarding quarantine. Because his symptoms had resolved, I did not start antibiotics. ?? A PET scan was repeated today, 10/18/20. This shows an increase in the FDG avid soft tissue focus in the pancreatic bed, now measuring 1.8 cm. There has been resolution of the FDG avid pulmonary opacities and near complete resolution of FDG avid thoracic adenopathy consistent with resolved infection. ?? I am going to present his case at GI Tumor Board next week to talk about whether a biopsy is needed and treatment options, specifically local therapy approaches such as SBRT or ablation. ?? He is fully vaccinated against Covid 19. ?3:08 PM Office Visit on 10/18/2020 INTERVAL HPI 01/30/21 Jaciel Combs is a 60 yo male diagnosed with pancreatic cancer in 2018 who underwent Whipple procedure. He completed 12 adjuvant cycles of Folfirinox 11/24/18. (See additional history as summarized above.) Most recently Jaciel was treated with SBRT 12/14-12/22/20 for local recurrence of pancreatic cancer confirmed on PET Scan of 10/18/20. Today Jaciel says he is doing great. He denies having experienced any side effects from the SBRT. Today he has good energy, good appetite and eats whatever he wants. He denies nausea. He is not using Creon. He has gained a few pounds and is working full-time. He says every now and then he gets bloating and gas but that is infrequent. No abdominal pain. He thinks there is a hernia he notices at times in his left lower abdomen that has not caused any pain. Jaciel is moving his bowels daily without difficulty. He denies fevers, chills or shortness of breath or new cough. He gets some exercise walking his dog.Jaciel says he is sleeping well at night. He does feel some job-related stress and we talked about some deep breathing exercises and walking to help reduce that stress. We will set up a repeat CT for his next visit for 3 months post SBRT and he is in agreement with that plan. No Known Allergies Current Medications ??? CREON 24,000-76,000 -120,000 unit Capsule, Delayed Release(E.C.) Review of Systems Constitutional: Negative. HENT: Negative. Respiratory: Negative for cough and shortness of breath. Cardiovascular: Negative for chest pain and palpitations. Gastrointestinal: Positive for abdominal distention. Negative for constipation, diarrhea and nausea. Occasional bloating and gas Genitourinary: Negative. Musculoskeletal: Negative. Skin: Negative. Psychiatric/Behavioral: Negative. Objective: Physical Exam Vitals reviewed. Constitutional: Appearance: Normal appearance. He is not ill-appearing. Eyes: General: No scleral icterus. Cardiovascular: Rate and Rhythm: Normal rate and regular rhythm. Pulmonary: Breath sounds: Normal breath sounds. No wheezing or rales. Abdominal: General: Bowel sounds are normal. Palpations: Abdomen is soft. There is no mass. Tenderness: There is no abdominal tenderness. Hernia: No hernia is present. Comments: Hernia not noted today on exam. Musculoskeletal: General: Normal range of motion. Lymphadenopathy: Cervical: No cervical adenopathy. Skin: General: Skin is warm and dry. Neurological: Mental Status: He is alert. Psychiatric: Mood and Affect: Mood normal. Thought Content: Thought content normal. BP 130/64 (Patient Position: Sitting) Pulse 61 Temp 36.7 ??C (98.1 ??F) (Temporal) Resp 20 Ht 173.5 cm (5' 8.31) Wt 87.6 kg (193 lb 3.2 oz) SpO2 100% BMI 29.11 kg/m?? LABS 01/27/21 WBC 6.08; ANC 4.00; H/H 14.0/41.3; PLT 199; BUN 21; CREAT 1.0; ALP 57; ALT 33; AST 22 CA 19-9 01/27/21 - <2 Assessment and Plan: Assessment: Jaciel Combs is a 60 yo male diagnosed with pancreatic cancer in 2018 who underwent Whipple procedure. He completed 12 adjuvant cycles of Folfirinox 11/24/18. (See additional history as summarized above.) Most recently Jaciel was treated with SBRT 12/14-12/22/20 for local recurrence of pancreatic cancer confirmed on PET Scan of 10/18/20. Jaciel has tolerated SBRT without toxicities and is feeling well today. Plan: Restaging CT C/A/P at end March (3 ms after SBRT). RTC for visit, labs, after CT. documented in this encounter Plan of Treatment Upcoming Encounters Date Type Specialty Care Team Description 02/23/2022 Office Visit Hematology and Oncology Gigi Sosa MD [facility] [place] [address] Ebonie Gordon APRN [address] [address] DR MEDICAL ONCOLOGY [place], [place] [id number] documented as of this encounter Visit Diagnoses Diagnosis Local recurrence of pancreatic cancer Malignant neoplasm of head of pancreas documented in this encounter Care Teams Produce Field Merchandiser Relationship Specialty Start Date End Date Corrie Pacheco APRN PCP - General Family Medicine 04/04/[address] [place], [place] [id number] documented as of this encounter
--- OUTSIDE RECORDS SUMMARY | 2022-02-23 01:41 | XMS_ITS | Encounter Summary ---
:1960 Author Organization [facility] [place] [address] Care Team Providers Name Role Phone Corrie Pacheco APRN Primary Care Provider Reason for Visit Reason Comments Procedure Encounter Details Date Type Department Care Team Description 12/22/2020 Procedure visit Radiation Oncology Marco Carlson I, Mal ignant neoplasm of at [facility] MD head of pancreas [facility] [address] [place] [id number] ONCOLOGY [phone] [place], [place] [address] Social History Tobacco Use Types [...] Sign Reading Time Taken Comments Blood Pressure 127/59 12/22/2020 9:27 AM EDT Pulse 59 12/22/2020 9:27 AM EDT Temperature 37 ??C (98.6 ??F) 12/22/2020 9:27 AM EDT Respiratory Rate 12 12/22/2020 9:27 AM EDT Oxygen Saturation 100% 12/22/2020 9:27 AM EDT Inhaled Oxygen Concentration - - Weight 84.6 kg (186 lb 9.6 oz) 12/22/2020 9:27 AM EDT S hoes on Height - - Body Mass Index 28.12 10/18/2020 1:21 PM EDT documented in this encounter Progress Notes Marco Carlson MD - 12/22/2020 10:00 AM EDT Images from the original note were not included. Radiation Oncology SBRT Procedure Note END OF TREATMENT NOTE Patient Identity: Patient name: Jaciel Combs Date of : 1960 Chief complaint: Day 1: mild anxiety Day 2: No nausea or vomiting. Day 3: No pain, nausea or vomiting Day 4: no changes Day 5: denies pain, nausea or vomiting. Oncologic History: Mr.Howard Bassam Combs is a [...] is not expressive. Clinical trial: None Medications 12/22/20 0950 Medication Sig Taking? CREON 24,000-76,000 -120,000 unit Capsule, Delayed Release(E.C.) TAKE 1 TO 2 CAPSULES BY MOUTH 3 TIMES DAILY WITH MEALS AND 1 CAPSULE WITH SNACKS. MAX 9 CAPS PER DAY. Patient not taking: Reported on 11/10/2019 Exam: Temp: [37 ??C (98.6 ??F)] Heart Rate: [59] Resp: [12] BP: (127)/(59) SpO2: [100 %] Heart Rate from SpO2: [...] to treat the above diagnosis on the [employer] system. he was evaluated pre- treatment in [...] coverage was adequate but OAR doses were acceptable. ??? he was monitored continuously during treatment delivery with the real-time cine-loop MRI imaging. ??? his 5th of 5 SBRT treatments was successfully delivered. Impression/Plan: Impression: Jaciel Combs tolerated treatment without incident. Plan: ?? Stop radiation therapy as planned. ?? Follow up in 6 weeks and consider reimaging after. documented in this encounter Plan of Treatment Upcoming Encounters Date Type Specialty Care Team Description 02/23/2022 Office Visit Hematology and Oncology Gigi Sosa MD [facility] [place] [address] Ebonie Gordon APRN [address] [place] [address] DR MEDICAL ONCOLOGY [place], [place] [id number] documented as of this encounter Visit Diagnoses Diagnosis Malignant neoplasm of head of pancreas documented in this encounter Administered Medications Inactive Administered Medications - up to 3 most recent administrations Medication Order MAR Action Action Date Dose Rate Site LORazepam (Ativan) tablet 1 mg Given 12/22/2020 9:59 AM EDT 1 mg 1 mg, Oral, ONCE, 1 dose, On Marlen 12/22/20 at 1015, Routine documented in this encounter Care Teams Track Repair Supervisor Relationship Specialty Start Date End Date Corrie Pacheco APRN PCP - General Family Medicine 04/04/[address] [place] [place] [address] documented as of this encounter
--- OUTSIDE RECORDS SUMMARY | 2022-02-23 01:41 | XMS_ITS | Encounter Summary ---
:1960 Author Organization [facility] [place] [address] Care Team Providers Name Role Phone Corrie Pacheco APRN Primary Care Provider Reason for Referral Diagnostic Test (Routine) - Closed Specialty Diagnoses / Procedures Referred By Contact Refer red To Contact Radiology Diagnoses Malignant neoplasm of head of pancreas Local recurrence of pancreatic cancer Gigi Sosa MD [facility] Rad Ct Scan Procedures CT Chest Abdomen Pelvis w Contrast (Generic) [facility] [place] [address] [place] [address] Referral ID Status Reason Start Date Expiration Date Visits V isits Requested Authorized [id number] Closed Specialty 11/15/2021 11/15/2021 1 0 Service Requested Reason for Visit Diagnostic Test (Routine) - Closed Specialty Diagnoses / Procedures Referred By Contact Refer red To Contact Radiology Diagnoses Malignant neoplasm of head of pancreas Local recurrence of pancreatic cancer Gigi Sosa MD [facility] Rad Ct Scan Procedures CT Chest Abdomen Pelvis w Contrast (Generic) [facility] [place] [address] [place] [address] Referral ID Status Reason Start Date Expiration Date Visits V isits Requested Authorized [id number] Closed Specialty 11/15/2021 11/15/2021 1 0 Service Requested Encounter Details Date Type Department Care Team Description 11/15/[address] Scan at [facility] Gigi Sosa Malignant neoplasm of head o f pancreas; [facility] MD Will Local recurrence of pancreatic cancer [address] [facility] [address] ONCOLOGY [phone] [place] [address] Social History Tobacco Use Types Packs/Day Years [...] place to sleep or slept in a skilled nursing (including now)? Sex Assigned at Date Recorded Male 07/24/2020 7:58 PM EDT documented as of this encounter Plan of Treatment Upcoming Encounters Date Type Specialty Care Team Description 02/23/2022 Office Visit Hematology and Oncology Gigi Sosa MD [facility] [place] [address] Ebonie Gordon, [address] [place] [address] documented as of this encounter Procedures Procedure Name Priority Date/Time Associated Diagnosis Comme nts CT CHEST ABDOMEN Routine 11/15/2021 3:54 PM Malignant neoplasm Results for this PELVIS W CONTRAST EDT of head of collins creas procedure are in (GENERIC) Local recurrence of the resu lts pancreatic cancer section. documented in this encounter Results CT Chest Abdomen Pelvis w Contrast (Generic) (11/15/2021 3:54 PM EDT) Anatomical Region Laterality Modality Abdomen, Pelvis Computed Tomography Specimen (Source) Anatomical Collection Method Collection Time Re ceived Time Location / / Volume Laterality 11/15/2021 4:22 PM EDT Impressions 11/15/2021 6:03 PM EDT 1. ??Stable exam. Post Whipple procedure . No evidence of local recurrence or complication. 2. ??Stable, borderline enlarged mesente maggie lymph node. Possibly reactive. Thank you for letting us participate in the care of this patient. ??If you are a health care provider and have any questi ons regarding this report, please contact the number below. ??For patients who have questions please contact the health lawn caretaker that requested your imaging first. ? Electronically signed by: Andrez calvert MD, [facility] ([phone]), at 11/15/2021 6:03 PM Narrative 11/15/2021 6:03 PM EDT EXAMINATION: CT CHEST ABDOMEN PELVIS W CONTRAST (GENERIC) CLINICAL HISTORY: Pancreatic cancer, sta ging; Pancreatic cancer with local recurrence, s/p radiation to pancreatic bed. ??Restaging Pancreatic cancer with local recurrence, s/p radiation to pancreatic bed. Restaging TECHNIQUE: Helical CT of the chest, abdo men, and pelvis was performed following the intravenous administration of contra st. Administered 107.0 ml of OMNIPAQUE 350.00 mg/ml. Oral contrast was not admi nistered. COMPARISON: 05/23/2021 FINDINGS: Chest: Lungs and large airways: No pulmonary no dules or areas of airspace consolidation. Pleura: No pleural effusion Heart/vasculature: Normal. Lymph nodes: No enlarged lymph nodes. Mediastinum and karen: Normal. Abdomen/pelvis: Liver: Normal size and attenuation witho ut lesions. Bile ducts: Nondilated. Gallbladder: Postcholecystectomy. Pancreas: Post Whipple procedure as note d previously. Stable postoperative bed. No complication or local tumor recurrenc e. The remaining pancreatic body and tail are stable. No pancreatic ductal di latation. Spleen: Normal. Adrenals: Normal. Kidneys: Symmetric enhancement. No colle cting system obstruction bilaterally. Urinary Bladder: Normal. Vasculature: No aneurysm. Lymph Nodes: ??Stable, solitary, borderl ine enlarged LEFT mid mesenteric lymph node (series 9, image 132). No loculated collections to suggest an abscess. Bowel: Nondilated, no wall thickening. ? ? Peritoneum and mesentery: No ascites, fr ee air, or loculated fluid collection. No mesenteric inflammation. Abdominal wall: Stable anterior pelvic w all hernia containing nonobstructed loops of small bowel. Reproductive organs: Large prostate glan d Osseous structures: No suspicious lesion s. Procedure Note Andrez Stallworth MD - 11/15/2021Form atting of this note might be different from the original. EXAMINATION: CT CHEST ABDOMEN PELVIS W C ONTRAST (GENERIC) CLINICAL HISTORY: Pancreatic cancer, sta ging; Pancreatic cancer with local recurrence, s/p radiation to pancreatic bed. Restaging Pancreatic cancer with local recurrence, s/p radiation to pancreatic bed. Restaging TECHNIQUE: Helical CT of the chest, abdo men, and pelvis was performed following the intravenous administration of contra st. Administered 107.0 ml of OMNIPAQUE 350.00 mg/ml. Oral contrast was not admi nistered. COMPARISON: 05/23/2021 FINDINGS: Chest: Lungs and large airways: No pulmonary no dules or areas of airspace consolidation. Pleura: No pleural effusion Heart/vasculature: Normal. Lymph nodes: No enlarged lymph nodes. Mediastinum and karen: Normal. Abdomen/pelvis: Liver: Normal size and attenuation witho ut lesions. Bile ducts: Nondilated. Gallbladder: Postcholecystectomy. Pancreas: Post Whipple procedure as note d previously. Stable postoperative bed. No complication or local tumor recurrenc e. The remaining pancreatic body and tail are stable. No pancreatic ductal di latation. Spleen: Normal. Adrenals: Normal. Kidneys: Symmetric enhancement. No colle cting system obstruction bilaterally. Urinary Bladder: Normal. Vasculature: No aneurysm. Lymph Nodes: Stable, solitary, borderlin e enlarged LEFT mid mesenteric lymph node (series 9, image 132). No loculated collections to suggest an abscess. Bowel: Nondilated, no wall thickening. Peritoneum and mesentery: No ascites, fr ee air, or loculated fluid collection. No mesenteric inflammation. Abdominal wall: Stable anterior pelvic w all hernia containing nonobstructed loops of small bowel. Reproductive organs: Large prostate glan d Osseous structures: No suspicious lesion s. IMPRESSION 1. Stable exam. Post Whipple procedure. No evidence of local recurrence or complication. 2. Stable, borderline enlarged mesenteri c lymph node. Possibly reactive. Thank you for letting us participate in the care of this patient. If you are a health care provider and have any questi ons regarding this report, please contact the number below. For patients w ho have questions please contact the health lawn caretaker that requested your imaging first. Electronically signed by: Andrez calvert MD, [facility] ([phone]), at 11/15/2021 6:03 PM Gigi Sosa MD IMG CT ORDERABLES documented in this encounter Visit Diagnoses Diagnosis Malignant neoplasm of head of pancreas Local recurrence of pancreatic cancer documented in this encounter Administered Medications Inactive Administered Medications - up to 3 most recent administrations Medication Order MAR Action Action Date Dose Rate Site iohexoL (Omnipaque) (350 mg/mL) Given 11/15/2021 4:01 PM EDT 107 mLs solution 0-200 mL 0-200 mL, Intravenous, ONCE PRN, 1 dose, Starting on Sat11/15/21 at 1552, Until Sat11/15/21 at 1601, Per Protocol, Warning Vesicant/Irritant Medication , Radiology Contrast, Routine documented in this encounter Care Teams Crayon Grader Relationship Specialty Start Date End Date Corrie Pacheco, DAMIEN PCP - General Family Medicine 04/04/18 [address] [place] [address] documented as of this encounter
--- OUTSIDE RECORDS SUMMARY | 2022-02-23 01:41 | XMS_ITS | Encounter Summary ---
:1960 Author Organization [facility] [place] [address] Care Team Providers Name Role Phone Corrie Pacheco APRN Primary Care Provider Reason for Visit Reason Comments Procedure Encounter Details Date Type Department Care Team Description 12/14/2020 Procedure visit Radiation Oncology Marco Carlson I, Mal ignant neoplasm of at [facility] MD pancreas, unspecified [facility] location of [facility] DR malignancy [place], [place] RADIATION [address] ONCOLOGY [phone] [place], [place] [address] Social History Tobacco Use Types [...] place to sleep or slept in a group home (including now)? Sex Assigned at Date Recorded Male 07/24/2020 7:58 PM EDT documented as of this encounter Last Filed Vital Signs Vital Sign Reading Time Taken Comments Blood Pressure 124/67 12/14/2020 10:33 AM EDT Pulse 53 12/14/2020 10:33 AM EDT Temperature 36.7 ??C (98.1 ??F) 12/14/2020 10:33 AM EDT Respiratory Rate - - Oxygen Saturation 99% 12/14/2020 10:33 AM EDT room a ir Inhaled Oxygen Concentration - - Weight 83.7 kg (184 lb 9.6 oz) 12/14/2020 10:33 AM EDT Height - - Body Mass Index 27.82 10/18/2020 1:21 PM EDT documented in this encounter Progress Notes Marco Carlson MD - 12/14/2020 11:30 AM EDT Images from the original note were not included. Radiation Oncology SBRT Procedure Note Patient Identity: Patient name: Jaciel Combs Date of : 1960 Chief complaint: Day 1: mild anxiety Day 2: No nausea or vomiting. Oncologic History: Mr.Howard Bassam [...] is not expressive. Clinical trial: None Medications 12/14/20 1036 Medication Sig Taking? CREON 24,000-76,000 -120,000 unit Capsule, Delayed Release(E.C.) TAKE 1 TO 2 CAPSULES BY MOUTH 3 TIMES DAILY WITH MEALS AND 1 CAPSULE WITH SNACKS. MAX 9 CAPS PER DAY. Patient not taking: Reported on 11/10/2019 Exam: Temp: [36.7 ??C (98.1 ??F)] Heart Rate: [53] Resp: -- BP: (124)/(67) SpO2: [99 %] Heart Rate from SpO2: -- KPS: 80. No evidence of peripheral adenopathy. Abdomen: Soft with no organomegaly. Lower extremity: No edema. Treatment: Intent: Curative Site: Pancreatic bed Prescription: 50 Gy in 5 fractions Technique: SBRT/MRI guided Radiation Therapy Procedure Detail: ??? Mr. Combs was in the radiation oncology clinic today for stereotactic body radiation therapy to treat the above diagnosis on the [employer] system. he was evaluated pre- treatment in [...] The treatment plan was verified:target coverage was inadequate and OAR doses were not in spec. Due to the above an online adaptive re-plan was performed and a modified plan was formulated. The delivered/adapted plan met the necessary criteria to ensure adequate target coverage and safety (ie OAR doses). ??? he was monitored continuously during treatment delivery with the real-time cine-loop MRI imaging. ??? his 2nd of 5 SBRT treatments was successfully delivered. Impression/Plan: Impression: Jaciel Combs tolerated treatment without incident. Plan: ?? Continue radiation therapy as planned. documented in this encounter Plan of Treatment Upcoming Encounters Date Type Specialty Care Team Description 02/23/2022 Office Visit Hematology and Oncology Gigi Sosa MD [facility] [place] [address] Ebonie Gordon APRN [address] [place] [address] DR MEDICAL ONCOLOGY [place], [place] [address] documented as of this encounter Visit Diagnoses Diagnosis Malignant neoplasm of pancreas, unspecif ied location of malignancy documented in this encounter Administered Medications Inactive Administered Medications - up to 3 most recent administrations Medication Order MAR Action Action Date Dose Rate Site LORazepam (Ativan) tablet 1 mg Given 12/14/2020 11:23 AM EDT 1 mg 1 mg, Oral, ONCE, 1 dose, On Sat12/14/20 at 1145, Routine documented in this encounter Care Teams Pet Caretaker Relationship Specialty Start Date End Date Corrie Pacheco APRN PCP - General Family Medicine 04/04/[address] [place] [place] [address] documented as of this encounter
--- OUTSIDE RECORDS SUMMARY | 2022-02-23 01:41 | XMS_ITS | Encounter Summary ---
:1960 Author Organization [facility] [place] [address] Care Team Providers Name Role Phone Corrie Pacheco APRN Primary Care Provider Encounter Details Date Type Department Care Team Description 06/20/2021 TH Visit Radiation Oncology Marco Carlson I, Malign ant neoplasm of (TeleHealth) [facility] pancreas, unspecified [facility] [address] [place] [place], [place] RADIATION [address] ONCOLOGY [phone] [place], [place] [address] Social History Tobacco Use Types [...] encounter Progress Notes Marco Carlson MD - 06/20/2021 4:30 PM EST Radiation Oncology Telephone Follow up Note: Mr.Howard Bassam Combs is [...] pancreas Added automatically from request for surgery [id number] ??? Severe protein-calorie malnutrition Pt had had [...] He denies abdominal pain, nausea or vomiting. 06/20/2021: no side effects. He denies abdominal pain, nausea or vomiting. Past Medical History: Diagnosis Date ??? Pancreatic cancer Past Surgical History: Procedure Laterality Date ??? CHOLECYSTECTOMY ??? IR MEDIPORT PLACEMENT 06/16/2018 IR Mediport Placement / Exchange 06/16/2018 RjAbhijeet, RESOURCE PROGRAM TEACHER [facility] RAD ??? IR MEDIPORT REMOVAL 01/13/2019 IR Mediport Removal 01/13/2019 Ezra eVla, RESOURCE PROGRAM TEACHER [facility] RAD ??? PRO ENDOSCOPIC US EXAM, ESOPH N/A 04/04/2018 UPPER EUS- ENDOSCOPIC ULTRASOUND performed by Felipe Soto MD at [facility] ENDOSCOPY ? ? PRO ERCP BILIARY OR PANCREATIC DUCT STENT REMOVAL & EXCHANGE W/DIL&WIRE 04/16/2018 ERCP, W REMOVAL& EXCHANGE STENT, BILIARY/PANCREATIC DUCT performed by Mahamed Bro MD at [facility] ENDOSCOPY ??? PRO ERCP STENT PLACEMENT BILIARY OR PANCREATIC DUCT 04/04/2018 ERCP, W PLCMNT ENDOSCOPIC STENT BILIARY OR PANCREATIC DUCT performed by Felipe Soto MD at [facility] ENDOSCOPY ??? PRO ERCP, SPHINCTEROTOMY N/A 04/04/2018 ERCP W/SPHINCTEROTOMY/PAPILLOTOMY performed by Felipe Soto MD at [facility] ENDOSCOPY ??? PRO ERCP, W/REMOVAL STONE, ZAHIDA/PANCR DUCTS 04/16/2018 ERCP W/REMOVAL CALCULI/DEBRIS FROM BILARY/PANCREATIC DUCT(S) performed by Mahamed Bro MD at [facility] ENDOSCOPY ??? PRO ERCP,DIAGNOSTIC N/A 04/16/2018 ERCP performed by Mahamed Bro MD at [facility] ENDOSCOPY ??? PRO LAP, DIAGNOSTIC ABDOMEN N/A 04/23/2018 LAPAROSCOPY, DIAGNOSTIC, ABDOMEN (WRVU 5.14) performed by Lázaro Collazo MD at [facility] OSC ??? PRO UNLISTED PX PNCRS N/A 05/05/2018 ROBOTIC PANCREATECTOMY,WHIPPLE, PARTIAL GASTRECTOMY W/ PANCREATOJEJUNOSTOMY performed by Lázaro Collazo MD at [facility] MAIN OR Medications 06/02/21 1033 Not on File No Known Allergies Social History Socioeconomic History [...] Lack of Transportation (Non-Medical): No Physical Activity: Not on file Housing Stability: Low Risk [...] Heart Rate from SpO2: -- KPS: 80. ?? CT C/A/P 06/01/2021: There is no evidence of local tumor recurrence in this examination. Multiple abdominal soft tissue nodules or lymph nodes, consistent with metastases, have become smaller in size. Assessment: Mr.Howard Bassam Combs is a very [...] completed SBRT for the locally recurrent lesion. Treatment was well-tolerated with no side effects. He has no evidence of metastatic disease. Local recurrence is responding with decreased size on imaging. Plan: Continue follow-up with medical oncology at [facility] ?? I provided care to Mr.Jaciel Combs who verbally consented to this telephone visit and understands that this visit may be billed, similar to a clinic office visit. 13 minutes were spent in total preparing for this virtual visit, by reviewing his case in the electronic medical record, in direct discussion with patient over the phone, and afterwards in coordinating and documenting her care in the medical record. documented in this encounter Plan of Treatment Upcoming Encounters Date Type Specialty Care Team Description 02/23/2022 Office Visit Hematology and Oncology Gigi Sosa MD [facility] [place] [address] Ebonie Gordon APRN [address] [place] [address] DR MEDICAL ONCOLOGY [place], [place] [address] documented as of this encounter Visit Diagnoses Diagnosis Malignant neoplasm of pancreas, unspecif ied location of malignancy documented in this encounter Care Teams Tube Maker Relationship Specialty Start Date End Date Corrie Pacheco APRN PCP - General Family Medicine 04/04/[address] [place], [place] [id number] documented as of this encounter
--- OUTSIDE RECORDS SUMMARY | 2022-02-23 01:41 | XMS_ITS | Encounter Summary ---
:1960 Author Organization [facility] [place] [address] Care Team Providers Name Role Phone Corrie Pacheco APRN Primary Care Provider Reason for Referral Diagnostic Test (Routine) - Closed Specialty Diagnoses / Procedures Referred By Contact Refer red To Contact Radiology Diagnoses Malignant neoplasm of head of pancreas Local recurrence of pancreatic cancer Gigi Sosa MD [facility] Rad Ct Scan Procedures CT Chest Abdomen Pelvis w Contrast (Generic) [facility] [place] [address] [place] [address] Referral ID Status Reason Start Date Expiration Date Visits V isits Requested Authorized [id number] Closed Specialty 11/15/2021 11/15/2021 1 0 Service Requested Encounter Details Date Type Department Care Team Description 06/02/2021 Office Visit Hematology/Oncology Rasheed Sosa MD [facility] [place] [address] Malignant neoplasm of head of pancreas; at [facility] Antoinette Rodriguez APRN [address] [place] [address] [place] [address] Local recurrence of pancreatic cancer [address] [place] [phone] Social History Tobacco Use Types Packs/Day Years [...] place to sleep or slept in a nursing home (including now)? Sex Assigned at Date Recorded Male 07/24/2020 7:58 PM EDT documented as of this encounter Last Filed Vital Signs Vital Sign Reading Time Taken Comments Blood Pressure 135/76 06/02/2021 10:29 AM EST Pulse 68 06/02/2021 10:29 AM EST Temperature 36.6 ??C (97.9 ??F) 06/02/2021 10:29 AM EST Respiratory Rate 18 06/02/2021 10:29 AM EST Oxygen Saturation 98% 06/02/2021 10:29 AM EST Inhaled Oxygen Concentration - - Weight 89.3 kg (196 lb 12.8 oz) 06/02/2021 10:29 AM EST Height 173.5 cm (5' 8.31) 06/02/2021 10:29 AM EST Body Mass Index 29.65 06/02/2021 10:29 AM EST documented in this encounter Progress Notes Gigi Sosa MD - 06/02/2021 10:30 AM EST Subjective: Patient ID: Jaciel Combs is 60 y.o. Problem List: 1. Pancreatic cancer; pT2N0 [...] and may- catenin (negative for nuclear staining). [id number] is retained in lesional cells. ??Overall, the [...] disease. The primary tumor appears resectable. E. 12/31/18 - Whipple procedure Path - A - [...] measured 14 mm, suspicious for recurrent disease. [facility] second read - IMPRESSION ?? 1. Unexpected [...] intrathoracic adenopathy evident. Moderate bilateral gynecomastia present. ([facility] review) - IMPRESSION ?? There is no evidence of local tumor recurrence in this examination. Multiple abdominal soft tissue nodules or lymph nodes, consistent with metastases, have become smaller in size. HPI Jaciel Combs is seen in f/u of pancreatic cancer. The history is summarized above. 05/05/18 - robotic Whipple procedure by Dr. Collazo. Path report is above. 06/25/18 - 11/24/18: adjuvant chemotherapy with Folfirinox x 12 cycles. 10/2020 - PET scan c/w local recurrence of disease. SBRT to pancreatic bed, completed 12/2020. Due to visitor restrictions related to the Covid 19 pandemic, Jaciel is by himself in clinic today. He is feeling very well. He has no cough or SOB. No fevers. 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 He is eating well, no weight loss. His bowels are regular. He has mild persistent neuropathy. 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 Thought Content: Thought content normal. Labs: WBC/ANC - 5., Hgb/Hct - 15.2/45.7, Plts - 189,000. BUN/Cr - 17/1.0. Lytes and LFTs unremarkable. CA 19-9 05/23/21 <2 01/27/21 <2 10/18/20 <2 08/09/20 <2 11/10/19 <2 07/14/19 <2 05/19/19 <2 01/02/19 <2 06/06/18 3 04/15/[address] scan personally reviewed, report above. Images reviewed with patient. Assessment and Plan: Mr. Combs is 60 yo, seen in f/u of pancreatic cancer, [...] The most recent CT c/a/p was done 05/23/20. There is no evidence of disease progression. There still appears to be some soft tissue at the site of presumed local recurrence but it is smaller. No furtherintervention is planned at this time. Given the recurrent disease, I would like to follow him closely with CT scans every three months for now. He is fully vaccinated against Covid 19. documented in this encounter Plan of Treatment Upcoming Encounters Date Type Specialty Care Team Description 02/23/2022 Office Visit Hematology and Oncology Gigi Sosa MD [facility] [place] [place] [address] Ebonie Gordon, [address] [place] [address] Scheduled Orders Name Type Priority Associated Diagnoses Order S chedule CBC (with Diff) Lab Routine Malignant neoplasm of Exp ected: 09/02/2021 head of pancreas (Approximate), Local recurrence of Expires: 06/02/2022 pancreatic cancer Comprehensive metabolic Lab Routine Malignant neoplas m of Expected: 09/02/2021 panel (non-fasting) head of panc reas (Approximate), Local recurrence of Expires: 06/02/2022 pancreatic cancer documented as of this encounter Results CT Chest Abdomen Pelvis [...] who have questions please contact the health care provider that requested your imaging first. ? Electronically signed by: Andrez calvert MD, [facility] ([phone]), at 11/15/2021 6:03 PM Narrative 11/15/2021 6:03 [...] ho have questions please contact the health care provider that requested your imaging first. Electronically signed by: Andrez calvert MD, [facility] ([phone]), at 11/15/2021 6:03 PM Gigi Sosa MD IMG CT ORDERABLES Carbohydrate Antigen 19-9 (11/15/2021 2:38 PM EDT) P athologist Signature CA 19-9 <2.0 <=35.0 u/ml [facility] Comment: This result was generated using a [employer] Christiano immunoassay. ??Results obtained from other methods or manufacturers jeremiah ot be used interchangeably with this method. Specimen Anatomical Collection Method Collection Time Receive d Time (Source) Location / / Volume Laterality Blood 11/15/2021 2:38 PM 2 2:48 EDT PM EDT Resulting Agency Comment Spec In Lab Gigi Sosa MD CHEMISTRY ORDERABLES Performing Organization Address City/State/[place] [address] Request For 2nd Read CT Chest Abdomen Pelvis (06/01/2021 10:19 AM EST) Anatomical Region Laterality Modality Chest, Abdomen, Pelvis SO Specimen (Source) Anatomical Location Collection Method / Collectio n Time Received Time / Laterality Volume Impressions 06/01/2021 11:10 AM EST There is no evidence of local tumor recu rrence in this examination. Multiple abdominal soft tissue nodules o r lymph nodes, consistent with metastases, have become smaller in size. Thank you for letting us participate in the care of this patient. ??If you are a health care provider and have any questi ons regarding this report, please contact the number below. ??For patients who have questions please contact the health care provider that requested your imaging first. ? Electronically signed by: Deshawn Marshall, [facility] ([phone]), at 06/01/2021 11:10 AM Narrative 06/01/2021 11:10 AM EST EXAMINATION: REQUEST FOR 2ND READ CT CHEST ABDOMEN PELVIS CLINICAL HISTORY: pancreatic cancer s/p resection with local recurrence, s/p SBRT to pancreatic bed recurrence. ??Res taging; Sending [facility]; Date of exam [id number]; I believe a reinterpretat ion of this exam may alter care of Patient. Yes TECHNIQUE: Helical CT of the chest, abdo men, and pelvis was performed following the intravenous administration of contra st. Omnipaque 350 was administered intravenously in a dose of 100 mL and im ages then obtained in the arterial and portal venous phases. Oral contrast was administered. COMPARISON: August 09, 2020, PET/CT October 042020 FINDINGS: Chest: Lungs and large airways: No pulmonary no dules are seen. There is linear scarring at the base of the left lung which is un changed. The central airways are clear. The previously noted groundglass opaciti es have resolved. Pleura: There is no pleural effusion, pl eural thickening or pneumothorax. Heart/vasculature: The heart size is nor mal. There is no large central pulmonary arterial filling defect. The thoracic ao rta is of normal caliber and has a three vessel arch branching pattern. Lymph nodes: No lymphadenopathy. Mediastinum and karen: Normal. Chest wall: Unchanged gynecomastia. Lower neck: no abnormality. Abdomen/pelvis: Liver: Normal size and attenuation witho ut lesions. Bile ducts: Nondilated. Gallbladder: Surgically absent. Pancreas: A Whipple procedure has been p erformed. There is no abnormal soft tissue at the pancreatic resection site. There is no dilatation of the pancreatic duct. Spleen: Normal in size. No parenchymal l esions. Adrenals: No nodules or thickening. Kidneys: The kidneys enhance symmetrical ly. No parenchymal lesions are present. There is no dilatation of the collecting systems or ureters. Urinary Bladder: Normal. Vasculature: There is no aneurysm. The o rigins of the celiac artery, superior mesenteric artery, bilateral renal arter ies and inferior mesenteric artery are patent. The portal vein and splenic vein are patent. The previously described soft tissue posterior to the hepatic art avery is unchanged. Lymph Nodes: ??An aortocaval lymph node (series 11, image 40) has become smaller in size. The previously described soft t issue nodule adjacent to the superior mesentery vein has become smaller in siz e (series 11, image 33). The previously described soft tissue nodule to the righ t of the superior mesenteric vein trunk (series 11, image 35) has become smaller in size currently measuring 10 mm (previously 18 mm). This was the site th at was FDG positive in the prior PET/CT. Gastrointestinal tract: As noted, there has been a Whipple procedure. No abnormal soft tissue is seen at the adela rojejunostomy. Orally administered contrast has reached the distal small licha wel. There is no bowel dilatation. As noted previously, there is a small bowel loop in the anterior abdominal wall hernia without evidence of obstruction o r change. Peritoneum and mesentery: No ascites, fr ee air, or loculated fluid collection. No mesenteric inflammation. A surgical s taple projects to the right of the rectum. Abdominal wall: Anterior abdominal wall hernia again seen. Reproductive organs: Unchanged prostatic enlargement. Osseous structures: No acute osseous pat hology. Procedure Note Cj Lloyd MD - 06/01/2021 EXAMINATION: REQUEST FOR 2ND READ CT [address] ST ABDOMEN PELVIS CLINICAL HISTORY: pancreatic cancer s/p resection with local recurrence, s/p SBRT to pancreatic bed recurrence. Resta ging; Sending Institution [facility]; Date of exam [id number]; I believe a reinterpretat ion of this exam may alter care of Patient. Yes TECHNIQUE: Helical CT of the chest, abdo men, and pelvis was performed following the intravenous administration of contra st. Omnipaque 350 was administered intravenously in a dose of 100 mL and im ages then obtained in the arterial and portal venous phases. Oral contrast was administered. COMPARISON: August 09, 2020, PET/CT October 042020 FINDINGS: Chest: Lungs and large airways: No pulmonary no dules are seen. There is linear scarring at the base of the left lung which is un changed. The central airways are clear. The previously noted groundglass opaciti es have resolved. Pleura: There is no pleural effusion, pl eural thickening or pneumothorax. Heart/vasculature: The heart size is nor mal. There is no large central pulmonary arterial filling defect. The thoracic ao rta is of normal caliber and has a three vessel arch branching pattern. Lymph nodes: No lymphadenopathy. Mediastinum and karen: Normal. Chest wall: Unchanged gynecomastia. Lower neck: no abnormality. Abdomen/pelvis: Liver: Normal size and attenuation witho ut lesions. Bile ducts: Nondilated. Gallbladder: Surgically absent. Pancreas: A Whipple procedure has been p erformed. There is no abnormal soft tissue at the pancreatic resection site. There is no dilatation of the pancreatic duct. Spleen: Normal in size. No parenchymal l esions. Adrenals: No nodules or thickening. Kidneys: The kidneys enhance symmetrical ly. No parenchymal lesions are present. There is no dilatation of the collecting systems or ureters. Urinary Bladder: Normal. Vasculature: There is no aneurysm. The o rigins of the celiac artery, superior mesenteric artery, bilateral renal arter ies and inferior mesenteric artery are patent. The portal vein and splenic vein are patent. The previously described soft tissue posterior to the hepatic art avery is unchanged. Lymph Nodes: An aortocaval lymph node (s eries 11, image 40) has become smaller in size. The previously described soft t issue nodule adjacent to the superior mesentery vein has become smaller in siz e (series 11, image 33). The previously described soft tissue nodule to the righ t of the superior mesenteric vein trunk (series 11, image 35) has become smaller in size currently measuring 10 mm (previously 18 mm). This was the site th at was FDG positive in the prior PET/CT. Gastrointestinal tract: As noted, there has been a Whipple procedure. No abnormal soft tissue is seen at the adela rojejunostomy. Orally administered contrast has reached the distal small licha wel. There is no bowel dilatation. As noted previously, there is a small bowel loop in the anterior abdominal wall hernia without evidence of obstruction o r change. Peritoneum and mesentery: No ascites, fr ee air, or loculated fluid collection. No mesenteric inflammation. A surgical s taple projects to the right of the rectum. Abdominal wall: Anterior abdominal wall hernia again seen. Reproductive organs: Unchanged prostatic enlargement. Osseous structures: No acute osseous pat hology. IMPRESSION There is no evidence of local tumor recu rrence in this examination. Multiple abdominal soft tissue nodules o r lymph nodes, consistent with metastases, have become smaller in size. Thank you for letting us participate in the care of this patient. If you are a health care provider and have any questi ons regarding this report, please contact the number below. For patients w ho have questions please contact the health care provider that requested your imaging first. Electronically signed by: Deshawn Marshall, [facility] ([phone]), at 06/01/2021 11:10 AM Gigi Sosa MD IMG OUTSIDE INTERPRETATION O RDERABLES documented in this encounter Visit Diagnoses Diagnosis Local recurrence of pancreatic cancer Malignant neoplasm of head of pancreas Local recurrence of pancreatic cancer Malignant neoplasm of head of pancreas Local recurrence of pancreatic cancer documented in this encounter Care Teams Photograph Editor Relationship Specialty Start Date End Date Corrie Pacheco APRN PCP - General Family Medicine 04/04/[address] [place] [place] [place] [address] documented as of this encounter
--- OUTSIDE RECORDS SUMMARY | 2022-02-23 01:41 | XMS_ITS | Encounter Summary ---
:1960 Author Organization [facility] [place] [address] Care Team Providers Name Role Phone Corrie Pacheco APRN Primary Care Provider Reason for Visit Reason Comments Procedure Encounter Details Date Type Department Care Team Description 12/16/2020 Procedure visit Radiation Oncology Marco Carlson I, Mal ignant neoplasm of at [facility] MD head of pancreas [facility] [address] [place] [phone] ONCOLOGY [phone] [place], [place] [address] Social History Tobacco Use Types [...] to sleep or slept in a senior living (including now)? Sex Assigned at Date Recorded Male 07/24/2020 7:58 PM EDT documented as of this encounter Last Filed Vital Signs Vital Sign Reading Time Taken Comments Blood Pressure 123/65 12/16/2020 12:27 PM EDT Pulse 54 12/16/2020 12:27 PM EDT Temperature 37.1 ??C (98.7 ??F) 12/16/2020 12:27 PM EDT Respiratory Rate 17 12/16/2020 12:27 PM EDT Oxygen Saturation 99% 12/16/2020 12:27 PM EDT Inhaled Oxygen Concentration - - Weight 83.8 kg (184 lb 12.8 oz) 12/16/2020 12:27 PM EDT Height - - Body Mass Index 27.85 10/18/2020 1:21 PM EDT documented in this encounter Progress Notes Marco Carlson MD - 12/16/2020 1:00 PM EDT Images from the original note were not included. Radiation Oncology SBRT Procedure Note Patient Identity: Patient name: Jaciel Combs Date of : 1960 Chief complaint: Day 1: mild anxiety Day 2: No nausea or vomiting. Day 3: No pain, nausea or vomiting Oncologic History: Mr.Howard Bassam Combs is a [...] is not expressive. Clinical trial: None Medications 12/16/20 1242 Medication Sig Taking? CREON 24,000-76,000 -120,000 unit Capsule, Delayed Release(E.C.) TAKE 1 TO 2 CAPSULES BY MOUTH 3 TIMES DAILY WITH MEALS AND 1 CAPSULE WITH SNACKS. MAX 9 CAPS PER DAY. Patient not taking: Reported on 11/10/2019 Exam: Temp: [37.1 ??C (98.7 ??F)] Heart Rate: [54] Resp: [17] BP: (123)/(65) SpO2: [99 %] Heart Rate from SpO2: [...] to treat the above diagnosis on the TapInfluenceT system. he was evaluated pre- treatment in [...] treatment plan was verified:target coverage was adequate and OAR doses were acceptable. ??? he was monitored continuously during treatment delivery with the real-time cine-loop MRI imaging. ??? his 3rd of 5 SBRT treatments was successfully delivered. Impression/Plan: Impression: Jaciel Combs tolerated treatment without incident. Plan: ?? Continue radiation therapy as planned. documented in this encounter Plan of Treatment Upcoming Encounters Date Type Specialty Care Team Description 02/23/2022 Office Visit Hematology and Oncology Gigi Sosa MD [facility] [address] Ebonie Gordon APRN [address] [place] [address] DR MEDICAL ONCOLOGY [place], [place] [address] documented as of this encounter Visit Diagnoses Diagnosis Malignant neoplasm of head of pancreas documented in this encounter Care Teams Protocol Officer Relationship Specialty Start Date End Date Corrie Pacheco APRN PCP - General Family Medicine 04/04/[address] [place], [place] [address] documented as of this encounter
--- OUTSIDE RECORDS SUMMARY | 2022-02-23 01:41 | XMS_ITS | Encounter Summary ---
:1960 Author Organization [facility] [place] [address] Care Team Providers Name Role Phone Corrie Pacheco APRN Primary Care Provider Encounter Details Date Type Department Care Team Description 05/23/2021 Ancillary Procedure [facility] [address] [place] [address] [phone] (Wo rk) Social History Tobacco Use Types [...] Visit Hematology and Oncology Gigi Sosa MD [facility] [place] [address] Ebonie Gordon APRN [address] [place] [address] [place] [address] documented as of this encounter Procedures Procedure Name Priority Date/Time Associated Diagnosis Comme nts FILM LIBRARY Routine 05/23/2021 3:53 PM Results f or this STORAGE ONLY CT EST procedure ar e in CHEST ABDOMEN the results PELVIS section. documented in this encounter Results Film Library- Storage Only CT Chest Abdomen Pelvis (05/23/2021 3:53 PM EST) Specimen (Source) Anatomical Location Collection Method / Collectio n Time Received Time / Laterality Volume Narrative [facility] - 05/23/2021 3:53 PM EST This exam is auto-finalizing. It's purpo se is for storage only. Corrie Pacheco APRN [facility] FILM LIBRARY ORDERABLES Performing Organization Address City/State/ZIP Code Phon e Number [facility] [place], [place] documented in this encounter Visit Diagnoses Not on filedocumented in this encounter Care Teams Cooking Chef Relationship Specialty Start Date End Date Corrie Pacheco APRN PCP - General Family Medicine 04/04/18 [address] [facility] [place] [address] documented as of this encounter
--- OUTSIDE RECORDS SUMMARY | 2022-02-23 01:41 | XMS_ITS | Encounter Summary ---
:1960 Author Organization [facility] [place] [address] Care Team Providers Name Role Phone Corrie Pacheco APRN Primary Care Provider Encounter Details Date Type Department Care Team Description 11/15/2021 Laboratory Appointment Lab 3L [facility] Local recurrence of pancreatic cancer; [facility] Malignant neoplasm [place] [id number] Social History Tobacco Use Types Packs/Day Years [...] place to sleep or slept in a fdc (including now)? Sex Assigned at Date Recorded Male 07/24/2020 7:58 PM EDT documented as of this encounter Plan of Treatment Upcoming Encounters Date Type Specialty Care Team Description 02/23/2022 Office Visit Hematology and Oncology Gigi Sosa MD [facility] [place] [address] Ebonie Gordon, DYNAMIC BALANCER [address] [place] [address] DR [place]ICAL [place] [address] documented as of this encounter Procedures Procedure Name Priority Date/Time Associated Comments Diagnosis HEMOGRAM Routine 11/15/2021 2:38 PM Malignant neoplasm Res ults for this EDT of head of pancreas procedur e are in the results section. DIFFERENTIAL, Routine 11/15/2021 2:38 PM Malignant neoplasm Re sults for this AUTOMATED EDT of head of pancreas procedur e are in the results section. HC CARBOHYDRATE Routine 11/15/2021 2:38 PM Malignant neoplasm Results for this ANTIGEN 19-9 EDT of head of pancr eas procedure are in Local recurrence of the resu lts pancreatic cancer section. HC CBC,PLT & AUTO Routine 11/15/2021 2:38 PM Malignant neoplas m DIFF EDT of head of pancreas HC VENIPUNCTURE Routine 11/15/2021 2:38 PM Local recurrence of Results for this EDT pancreatic cancer procedure are in the results section. documented in this encounter Results Differential, Automated (11/15/2021 2:38 PM EDT) P athologist Signature Neutrophils % 60.9 % [facility] Neutr Abs (ANC) 3.88 1.70 - [facility] 6.10 [facility] x10(3)/[facility] LABORATORY Lymphocytes % 26.7 % [facility] Lymphocytes Abs 1.7 0.9 - 3.2 [facility] x10(3)/[facility] LABORATORY Monocytes % 9.6 % [facility] Monocyte Abs 0.6 0.3 - 0.9 [facility] x10(3)/[facility] LABORATORY Eosinophils % 1.4 % [facility] Eosinophils Abs 0.1 0.0 - 0.4 [facility] x10(3)/[facility] LABORATORY Basophils % 1.1 % [facility] Basophils Abs 0.1 0.0 - 0.1 [facility] x10(3)/[facility] LABORATORY Immature Gran % 0.30 % [facility] Comment: Immature granulocytes(IG's)percentage an d absolute count will include metamyelocytes, myelocytes, and promyelo cytes. Blood smears from CBCs yielding IG's will be scanned manually for concor dance. If this scan disagrees with the automated IG or if promyelocytes are not ed, a manual differential will be performed. [place] Gran Abs 0.02 0.00 - 0.04 x10(3)/[facility] MAR Y [facility] Specimen Anatomical Collection Method Collection Time Receive d Time (Source) Location / / Volume Laterality Blood 11/15/2021 2:38 PM 2 2:48 EDT PM EDT Resulting Agency Comment Spec In Lab Gigi Sosa MD HEMATOLOGY ORDERABLES Performing Organization Address City/State/[place] [address] Hemogram (11/15/2021 2:38 PM EDT) P athologist Signature WBC 6.4 4.0 - 9.5 [facility] x10(3)/[facility] LABORATORY RBC 5.17 4.58 - [facility] 5.54 [facility] x10(6)/[facility] LABORATORY Hemoglobin 15.6 13.7 - [facility] 16.5 g/dL [facility] Hematocrit 45.4 40.5 - [facility] 48.5 % [facility] MCV 87.8 82.9 - [facility] 93.1 [facility] LABORATORY MCH 30.2 27.5 - KAYY JOSELINE 32.1 pg [facility] MCHC 34.4 32.0 - [facility] 35.7 g/dL [facility] Platelets 194 145 - 357 [facility] x10(3)/[facility] LABORATORY RDWSD 41.5 36.0 - [facility] 45.0 [facility] LABORATORY RDWCV 12.7 11.4 - [facility] 13.8 % [facility] MPV 9.5 7.6 - 12.9 [facility] LABORATORY nRBC % Auto 0.0 % [facility] nRBC Abs Auto 0.000 0.000 - [facility] 0.000 [facility] x10(3)/[facility] LABORATORY Specimen Anatomical Collection Method Collection Time Receive d Time (Source) Location / / Volume Laterality Blood 11/15/2021 2:38 PM 2 2:48 EDT PM EDT Resulting Agency Comment Spec In Lab Gigi Sosa MD HEMATOLOGY ORDERABLES Performing Organization Address City/State/[place] [address] Carbohydrate Antigen 19-9 (11/15/2021 2:38 PM EDT) P athologist Signature [place] 19-9 <2.0 <=35.0 u/ml [facility] Comment: This result was generated using a Chavo Christiano immunoassay. ??Results obtained from other methods or manufacturers jeremiah ot be used interchangeably with this method. Specimen Anatomical Collection Method Collection Time Receive d Time (Source) Location / / Volume Laterality Blood 11/15/2021 2:38 PM 2 2:48 EDT PM EDT Resulting Agency Comment Spec In Lab Gigi Sosa MD CHEMISTRY ORDERABLES Performing Organization Address City/State/[place] [address] Comprehensive metabolic panel (non-fasting) (11/15/2021 2:38 PM EDT) athologist Signature Glucose Lvl 92 65 - 199 [facility] mg/dL [facility] Comment: Diabetes: >=200 mg/dL plus symp toms BUN 19 10 - 20 mg/dL [facility] Creatinine 1.03 0.80 - 1.50 mg/dL [facility] Sodium 139 135 - 145 mmol/L [facility] Potassium 3.9 3.5 - 5.0 mmol/L [facility] Comment: Please note: ??Patients with WBC >100,00 0 may have falsely elevated Potassium levels. ??For accurate Potassium quantif ication in these patients send serum separator tube (gold top) for subsequent determinations. ??Contact the Clinical Chemistry Laboratory if there are any qu estions. Chloride 103 98 - 107 mmol/L [facility] CO2 27 22 - 31 mmol/L [facility] Anion Gap 9 5 - 15 mmol/L [facility] Calcium 9.2 8.5 - 10.5 mg/dL [facility] Total Protein 7.6 6.1 - 8.0 g/dL [facility] Albumin 4.5 3.2 - 5.2 g/dL [facility] AST 22 0 - 39 unit/L [facility] ALT 27 0 - 55 unit/L [facility] Alk Phos 56 40 - 130 unit/L [facility] Total Bilirubin 0.5 0.2 - 1.3 mg/dL [facility] Estimated GFR 83 >=60 mL/min/1.73 m?? [facility] Comment: This patient's estimated GFR was calcula ana using the 2020 CKD-EPI equation. The estimated GFR can vary from the mery ured GFR by up to 30% in the absence of rapidly changing kidney function. Assess ment of the estimated GFR is not appropriate when creatinine concentratio ns are rapidly changing. For clinical situations in which a more precise estim ate of GFR is necessary, consider alternative methods of GFR estimation smith ch as a 24-hour urine creatinine clearance. Assignment of CKD stage 1-5 for patients with an eGFR near the transition point between stages may be based on clinical assessment of muscle mass and symptoms in addition to eGFR. Specimen Anatomical Collection Method Collection Time Receive d Time (Source) Location / / Volume Laterality Blood 11/15/2021 2:38 PM 2 2:48 EDT PM EDT Resulting Agency Comment Spec In Lab Gigi Sosa MD CHEMISTRY ORDERABLES Performing Organization Address City/State/[place] [address] documented in this encounter Visit Diagnoses Diagnosis Local recurrence of pancreatic cancer Malignant neoplasm of head of pancreas documented in this encounter Care Teams Career Guidance Counselor Relationship Specialty Start Date End Date Corrie Pacheco APRN PCP - General Family Medicine 04/04/[address] [place] [address] documented as of this encounter
--- OUTSIDE RECORDS SUMMARY | 2022-02-23 01:41 | XMS_ITS | Clinical Summary ---
:1960 Author Organization [facility] [place] [address] Care Team Providers Name Role Phone Corrie Pacheco APRN Primary Care Provider Allergies No known active allergies Medications No known medications Active Problems Problem Noted Date Mass of pancreas 08/11/2020 Overview: Added automatically from request for bhupinder cormier [id number] Severe protein-calorie malnutrition 05/12/2018 Overview: Pt had had voluntary wt loss earlier in the year but has lost 8% body wt in past 3 months. Pt has temporal wasting and > 7.5% wt loss in past 3 months c/w severe protein calorie type malnutrition. Pancreatic cancer 05/05/2018 Exocrine pancreatic insufficiency 04/15/2018 Malignant neoplasm of head of pancreas 04/14/2018 Cancer Staging: Clinical: Stage IA (cT1, cN0, cM0) - Signed by Jas Elizabeth MD on 04/15/2018 Family History Medical History Relation Comments Cancer Father Relation Status Comments Father Social History Tobacco Use Types Packs/Day Years [...] place to sleep or slept in a mcfp (including now)? Sex Assigned at Date Recorded Male 07/24/2020 7:58 PM EDT Last Filed Vital Signs Vital Sign Reading [...] Mass Index 29.65 06/02/2021 10:29 AM EST Plan of Treatment Upcoming Encounters Date Type Specialty Care Team Description 02/23/2022 Office Visit Hematology and Oncology Gigi Sosa MD [facility] [place] [address] Ebonie Gordon, [address] [place] [address] Health Maintenance Due Date Last Done Comments Covid-19 Vaccine (#1) 05[birth year]19/1961 HIV screen 11/16/1977 Hepatitis C Screening 11/16/1977 Lipid Screening 11/16/1977 Tdap adult 11/16/1978 Tetanus vaccine 11/16/1978 Colonoscopy 11/16/2004 Zoster vaccine (1 of 2) 11/16/2009 Advance Directive 11/16/2014 Influenza (Flu) vaccine (1 of 1 - 01/04/2022 Influenza standard series) Diabetes Screening (HgbA1C or 11/15/2024 11/15/2021, 2020, Glucose) 11/10/2019, Additional history exists Medical Devices Implanted Type Area Warehouse Coordinator Device Shelf Model / Identifier Expiration Serial / Date Lot Stent,Wflx,Blry,Uc,10x60 ([id number]) - [id number] [facility] [id number] / Implanted: Qty: 1 on 04/04/2018 by Felipe Soto MD at [facility] - [id number] Stent,Advx,Blry,Db,7fr,7cm ([id number]) - [id number] IMPLANTS [employer] [id number] / Implanted: Qty: 1 on 04/16/2018 by Mahamed Bro MD at [facility] - [id number] [employer] Stent,Frmn,Pancr,[id number] ([id number]) - [id number] IMPLANTS N/A: [employer] 02/03/2023 [id number] / Implanted: Qty: 1 on 05/05/2018 by Lázaro Collazo MD at [facility] Abdomen INC - CID / MEDI [id number] Explanted Type Area Warehouse Coordinator Device Shelf Model / Identifier Expiration Date Ser ial / Lot Devic,Pro,W-Attch,Chrnflx,8f ([id number])-06/16/2018 IMPLANTS [employer] - [id number] / Implanted: Qty: 1 on 06/16/2018 by Kalia Jacome MD [employer] [place] / Explanted: Qty: 1 on 01/13/2019 by Ezra Vela APRN [id number] Insurance Payer Benefit Plan / Subscriber ID Effective Dates Phone Addre ss Type Group [employer] [facility] [id number] 2020-Present [address] [facility] [place] [place] [address] Advance Directives Latest Code Status on File Code Status Date Activated Date Inactivated Comments Full Code 01/13/2019 12:23 PM 01/14/2019 4:48 AM Does patient have capacity to make decision: Yes Full Code 06/16/2018 12:25 PM 06/17/2018 4:36 AM Does patient have capacity to make decision: Yes Full Code 05/05/2018 8:34 PM 05/12/2018 3:50 PM Does patient have capacity to make decision: Yes Full Code 05/05/2018 6:19 PM 05/05/2018 8:34 PM Does patient have capacity to make decision: Yes Care Teams Representative Personal Service Relationship Specialty Start Date End Date Corrie Pacheco APRN PCP - General Family Medicine 04/04/18 [address] [facility] [place] [address]
--- OUTSIDE RECORDS SUMMARY | 2022-02-23 01:41 | XMS_ITS | Encounter Summary ---
:1960 Author Organization [place] [address] Care Team Providers Name Role Phone Corrie Pacheco APRN Primary Care Provider Encounter Details Date Type Department Care Team Description 11/15/2021 [facility] [place] [address] Social History Tobacco Use Types Packs/Day Years [...] place to sleep or slept in a longterm (including now)? Sex Assigned at Date Recorded Male 07/24/2020 7:58 PM EDT documented as of this encounter Plan of Treatment Upcoming Encounters Date Type Specialty Care Team Description 02/23/2022 Office Visit Hematology and Oncology Gigi Sosa MD [facility] [address] Ebonie Gordon APRN [address] [place] [address] DR MEDICAL ONCOLOGY [place], [place] [id number] documented as of this encounter Visit Diagnoses Not on filedocumented in this encounter Care Teams Barrel Coater Relationship Specialty Start Date End Date Corrie Pacheco APRN PCP - General Family Medicine 04/04/[address] [place], [place] [address] documented as of this encounter
--- OUTSIDE RECORDS SUMMARY | 2022-02-23 01:41 | XMS_ITS | Encounter Summary ---
:1960 Author Organization [facility] [place] [address] Care Team Providers Name Role Phone Corrie Pacheco APRN Primary Care Provider Encounter Details Date Type Department Care Team Description 05/04/2021 Notes Only [facility] [address] [place], [place] [phone] HEMATOLOGY ONCOLOGY [phone] [place] [address] (Wo rk) Social History Tobacco Use Types [...] place to sleep or slept in a assisted (including now)? Sex Assigned at Date Recorded Male 07/24/2020 7:58 PM EDT documented as of this encounter Progress Notes Antoinette Rodriguez APRN - 05/04/2021 3:57 PM EST Peer to peer call done today for authorization for CT C/A/P at [facility]. S/P SBRT therapy in 12/24. Authorization code is [id number]. Valid 05/02/21 through 06/30/21. documented in this encounter Plan of Treatment Upcoming Encounters Date Type Specialty Care Team Description 02/23/2022 Office Visit Hematology and Oncology Gigi Sosa MD [facility] [place] [address] Ebonie Gordon APRN [address] [place] [address] DR MEDICAL ONCOLOGY [place], [place] [id number] documented as of this encounter Visit Diagnoses Not on filedocumented in this encounter Care Teams Food Sampler Relationship Specialty Start Date End Date Corrie Pacheco APRN PCP - General Family Medicine 04/04/[address] [facility], [place] [id number] documented as of this encounter
--- OUTSIDE RECORDS SUMMARY | 2022-02-23 01:42 | XMS_ITS | Encounter Summary ---
:1960 Author Organization [facility] [place] [address] Care Team Providers Name Role Phone Corrie Pacheco APRN Primary Care Provider Encounter Details Date Type Department Care Team Description 01/13/2019 Laboratory Appointment Lab 3L [facility] Malignant neoplasm of [facility] [place] [address] Social History Tobacco Use Types Packs/Day Years Used Date Never Smoker Smokeless Tobacco: Never Used Alcohol Use Standard Drinks/Week Comments No 0 (1 standard drink = 0.6 oz pure alcoho l) 2-3X/month Alcohol Habits Answer Date Recorded How often do you have a drink containing alcohol? Never 04/16/2018 How many drinks containing alcohol do you have on a typical Not asked day when you are drinking? How often do you have six or more drinks on one occasion? No t asked Comment: 2-3X/month 04/16/2018 Financial Resource Strain Answer Date Recorded How [...] place to sleep or slept in a mcc (including now)? Sex Assigned at Date Recorded Male 07/24/2020 7:58 PM EDT documented as of this encounter Plan of Treatment Upcoming Encounters Date Type Specialty Care Team Description 02/23/2022 Office Visit Hematology and Oncology Gigi Sosa MD [facility] [place] [address] [place] [address] documented as of this encounter Procedures Procedure Name Priority Date/Time Associated Diagnosis Comme [facility] PLATELET COUNT Routine 01/13/2019 11:56 AM Malignant neopla sm Results for this EDT of head of pancreas procedur e are in the results section. documented in this encounter Results Platelet count (01/13/2019 11:56 AM EDT) athologist Signature Platelets 198 145 - 357 KAYY JOSELINE x10(3)/[facility] LABORATORY Plat Immature 1.0 0.0 - 7.4 [employer]JOSELINE % % [facility] Comment: Limitation of the Immature Platelet Frac tion (IPF)-May be less reliable when the platelet count is less than 60f845/u L due to statistical imprecision. The IPF value provides an assessment of the Bone Marrow production status. ??It is useful in differentiating Thrombocyto penia caused by platelet destruction/consumption versus decreased production. It also helps to determine the imminent release of platelets and ca n be therefore a helpful parameter in Chemotherapy and Bone marrow transplant patients. ELEVATED IPF value: ?? When the bone marrow is in a state of over production such as when increased destruction and consumption are the unde rlying issue. ?? When the marrow is recovering post ch emotherapy or bone marrow transplant. LOW to NORMAL IPF value: ?? When the bone marrow in not respondin g and is in a decreased state of production. References: [employer] The Clinical Value of the Immature Platelet Fraction (IPF) in Cell Recovery Document Number [id number] 10/2010 [employer] The Role of the Imm ature Platelet Fraction (IPF) in the Differential Diagnosis of Thrombocytopen ia, Document [id number] V05/04/18 P0514 Specimen Anatomical Collection Method Collection Time Receive d Time (Source) Location / / Volume Laterality Blood specimen 01/13/2019 11:56 9 (specimen) AM EDT 12:07 PM EDT Resulting Agency Comment Spec In Lab Gigi Sosa MD HEMATOLOGY ORDERABLES Performing Organization Address City/State/[place] [address] documented in this encounter Visit Diagnoses Diagnosis Malignant neoplasm of head of pancreas documented in this encounter Care Teams Home Care Manager Rn Relationship Specialty Start Date End Date Corrie Pacheco APRN PCP - General Family Medicine 04/04/18 [address] [place] [address] documented as of this encounter
--- OUTSIDE RECORDS SUMMARY | 2022-02-23 01:42 | XMS_ITS | Encounter Summary ---
:1960 Author Organization [facility] [place] [address] Care Team Providers Name Role Phone Corrie Pacheco APRN Primary Care Provider Encounter Details Date Type Department Care Team Description 01/20/2019 Orders Only General Surgery at L[facility] Collazo V itamin D deficiency; [facility] Malignant neoplasm of head of pancreas; [facility] Iro n deficiency anemia secondary to inadequate dietary iron intake; Guerita GARY Vitamin B12 deficiency; [place] GENERAL SURGERY Exocrine pancreatic insufficiency [address] [place] [address] [phone] (Wo rk) Social History Tobacco Use Types [...] and Oncology Gigi Sosa MD [facility] [place] [address] Ebonie Gordon [address] [place] [address] documented as of this encounter Results Vitamin A (05/19/2019 7:07 AM EST) athologist Signature Vitamin A 48.1 32.5 - 78.0 [facility] mcg/dL [facility] Comment: ADDITIONAL INFORMATIO N This test was developed and its performa nce characteristics determined by [facility] in a manner co nsistent with CLIA requirements. This test has not been brenda ared or approved by the U.S. Food and Drug Administration. Test Performed by: [place] [id number] Cutter: Renan Chisholm M.D. Ph. D.; [facility]# [id number] Specimen Anatomical Collection Method Collection Time Receive d Time (Source) Location / / Volume Laterality Blood specimen 05/19/2019 7:07 AM 020 8:40 (specimen) EST AM EST Resulting Agency Comment Spec In Lab Lázaro Collazo MD CHEMISTRY ORDERABLES Performing Organization Address City/[facility]/ZIP Code Phon e Number [address] Iron (05/19/2019 7:07 AM EST) athologist Signature Iron 79 45 - 160 KAYY JOSELINE mcg/dL [facility] Specimen Anatomical Collection Method Collection Time Receive d Time (Source) Location / / Volume Laterality Blood specimen 05/19/2019 7:07 AM 020 7:14 (specimen) EST AM EST Resulting Agency Comment Spec In Lab Lázaro Collazo MD CHEMISTRY ORDERABLES Performing Organization Address City/[facility] Code Phon e Number [address] Ferritin (05/19/2019 7:07 AM EST) athologist [facility] Ferritin 362 30 - 400 KAYY JOSELINE ng/mL [facility] Comment: Pediatric reference ranges not verified at [facility], interpret with caution. Reference ranges for females greater faheem n 50 years of age approach values for men, i.e., 30-400 ng/mL. Specimen Anatomical Collection Method Collection Time Receive d Time (Source) Location / / Volume Laterality Blood specimen 05/19/2019 7:07 AM 020 7:14 (specimen) EST AM EST Resulting Agency Comment Spec In Lab Lázaro Collazo MD CHEMISTRY ORDERABLES Performing Organization Address City/[facility]/ZIP Code Phon e Number [address] Vitamin B12 (05/19/2019 7:07 AM EST) athologist Signature Vitamin B-12 1,019 232 - 1,245 KAYY JOSELINE pg/mL [facility] Specimen Anatomical Collection Method Collection Time Receive d Time (Source) Location / / Volume Laterality Blood specimen 05/19/2019 7:07 AM 020 7:14 (specimen) EST AM EST Resulting Agency Comment Spec In Lab Lázaro Collazo MD CHEMISTRY ORDERABLES Performing Organization Address City/State/[place] [address] documented in this encounter Visit Diagnoses Diagnosis Vitamin D deficiency Unspecified vitamin D deficiency Malignant neoplasm of head of pancreas Iron deficiency anemia secondary to inad equate dietary iron intake Vitamin B12 deficiency Other B-complex deficiencies Exocrine pancreatic insufficiency Other specified disease of pancreas documented in this encounter Care Teams Apprentice Cook Relationship Specialty Start Date End Date Corrie Pacheco APRN PCP - General Family Medicine 04/04/18 [place] [address] documented as of this encounter
--- OUTSIDE RECORDS SUMMARY | 2022-02-23 01:42 | XMS_ITS | Encounter Summary ---
:1960 Author Organization [facility] [place] [address] Care Team Providers Name Role Phone Corrie Pacheco APRN Primary Care Provider Reason for Visit Reason Comments Follow-up Encounter Details Date Type Department Care Team Description 11/10/2019 Office Visit Hematology and Gigi Sosa Maligna nt neoplasm of Oncology at [facility] [place] head of pancreas [facility] [address] [place] [address] [place] [address] [phone] Social History Tobacco Use Types Packs/Day Years [...] Sign Reading Time Taken Comments Blood Pressure 121/65 11/10/2019 10:16 AM EDT Pulse 55 11/10/2019 10:16 AM EDT Temperature 36.6 ??C (97.9 ??F) 11/10/2019 10:16 AM EDT Respiratory Rate 16 11/10/2019 10:16 AM EDT Oxygen Saturation 98% 11/10/2019 10:16 AM EDT Inhaled Oxygen Concentration - - Weight 83.2 kg (183 lb 6.4 oz) 11/10/2019 10:16 AM with shoes EDT Height 175.7 cm (5' 9.17) 11/10/2019 10:16 AM with faina es EDT Body Mass Index 26.95 11/10/2019 10:16 AM EDT documented in this encounter Progress Notes Gigi Sosa MD - 11/10/2019 10:30 AM EDT Subjective: Patient ID: Jaciel Combs is a 58 y.o. male. Problem List: 1. Pancreatic cancer; pT2N0 A. [...] and may- catenin (negative for nuclear staining). [id number] is retained in lesional cells. ??Overall, the [...] 12 cycles, completed 11/24/[address] c/a/p 11/10/19 - IMPRESSION Status post Whipple without evidence of local recurrence or distant metastases. HPI Mr. Combs is seen in f/u of pancreatic cancer. The history is summarized above. On 05/05/18 he underwent a robotic Whipple procedure by Dr. Collazo. The path report is above. On 06/25/18, he began adjuvant chemotherapy with Folfirinox. He completed the planned 12 cycles of therapy on 11/24/18. On presentation today, he is by himself. He is feeling generally well. He is eating well and has gained more weight. He ran out of the creon a couple of weeks ago and decided to try to see how he does.This far he is doing fine. No abdominal discomfort or bloating. His bowels are regular. His energy level is good and he is working. 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 Psychiatric/Behavioral: Negative. Objective: Physical Exam Constitutional: He is oriented to person, place, and time. He appears well- developed and well-nourished. No distress. HENT: Head: Normocephalic and atraumatic. Mouth/Throat: Oropharynx is clear and moist. No oropharyngeal exudate. Eyes: No scleral icterus. Cardiovascular: Normal rate and regular rhythm. Pulmonary/Chest: Effort normal. No respiratory distress. He has no wheezes. He has no rales. Abdominal: Soft. He exhibits no distension and no mass. There is no abdominal tenderness. There is no guarding. Periumbilical hernia Musculoskeletal: General: No edema. Lymphadenopathy: He has no cervical adenopathy. He has no axillary adenopathy. Right: No supraclavicular adenopathy present. Left: No supraclavicular adenopathy present. Neurological: He is alert and oriented to person, place, and time. Coordination normal. Skin: Skin is warm and dry. No rash noted. Psychiatric: He has a normal mood and affect. His behavior is normal. Vitals reviewed. Labs: Recent Results (from the past 24 hour(s)) Carbohydrate Antigen 19-9 Result Value Ref Range CA 19-9 <2.0 <=35.0 u/ml Comprehensive metabolic panel (non-fasting) Result Value Ref Range Glucose Lvl 88 65 - 199 mg/dL BUN 22 (H) 10 - 20 mg/dL Creatinine 0.93 0.80 - 1.50 mg/dL Sodium 142 135 - 145 mmol/L Potassium 4.8 3.5 - 5.0 mmol/L Chloride 103 98 - 107 mmol/L CO2 29 22 - 31 mmol/L Anion Gap 10 5 - 15 mmol/L Calcium 9.5 8.5 - 10.5 mg/dL Total Protein 7.6 6.1 - 8.0 gm/dL Albumin 4.5 3.2 - 5.2 gm/dL AST 20 0 - 39 unit/L ALT 27 0 - 55 unit/L Alk Phos 62 40 - 130 unit/L Total Bilirubin 0.3 0.2 - 1.3 mg/dL eGFR 90 >=60 mL/min/1.73 m?? eGFR 104 >=60 mL/min/1.73 m?? Hemogram Result Value Ref Range WBC 6.2 4.0 - 9.5 x10(3)/mcL RBC 4.89 4.58 - 5.54 x10(6)/mcL Hemoglobin 15.1 13.7 - 16.5 gm/dL Hematocrit 45.6 40.5 - 48.5 % MCV 93.3 (H) 82.9 - 93.1 fL MCH 30.9 27.5 - 32.1 pg MCHC 33.1 32.0 - 35.7 gm/dL Platelets 188 145 - 357 x10(3)/mcL RDWSD 44.3 36.0 - 45.0 fL RDWCV 13.0 11.4 - 13.8 % MPV 9.3 7.6 - 12.9 fL nRBC % Auto 0.0 % nRBC Abs Auto 0.000 0.000 - 0.000 x10(3)/mcL Differential, Automated Result Value Ref Range Neutrophils % 57.6 % Neutr Abs (ANC) 3.56 1.70 - 6.10 x10(3)/mcL Lymphocytes % 29.7 % Lymphocytes Abs 1.8 0.9 - 3.2 x10(3)/mcL Monocytes % 9.7 % Monocyte Abs 0.6 0.3 - 0.9 x10(3)/mcL Eosinophils % 1.5 % Eosinophils Abs 0.1 0.0 - 0.4 x10(3)/mcL Basophils % 1.0 % Basophils Abs 0.1 0.0 - 0.1 x10(3)/mcL Immature Gran % 0.50 % Magnolia Gran Abs 0.03 0.00 - 0.04 x10(3)/mcL CA 19-9<2 11/10/19 07/14/19 <2 05/19/19 <2 01/02/19 <2 06/06/18 3 04/15/[address] personally reviewed, report above Assessment and Plan: Mr. Combs is a 58 yo male seen in f/u of pancreatic cancer. He presented in late 03/[address] A CT was done at [facility] and showed intra and extrahepatic biliary ductal dilatation and question of a mass in the duodenum or head of the pancreas. He was referred to GI at [facility] and on 04/04/18 underwent an ERCP with stent placement and Upper EUS. A mass was seen in the lateral aspect of the head of the pancreas without vascular involvement. There was concern for duodenal invasion. An FNB was performed and the pathology showed carcinoma with acinar and ductal differentiation. A CT c/a/p was performed on 04/04/18 and showed no evidence of distant metastatic disease. The primary tumor was seen along the right lateral border of the pancreatic head, abutting the duodenum. Therewas no vascular involvement. On 05/05/18 he underwent a robotic whipple procedure. The path is above - well differentiated adenocarcinoma with invasion of peripancreatic soft tissues, pT2. 2 LNs were seen, both negative, pN0. The margins of resection were negative. Of note, no acinar differentiation was seen in this specimen. On 06/25/18, he began adjuvant chemotherapy with Folfirinox and completed the planned 12 cycles on 11/24/18. Clinically and radiologically, he is doing well without evidence of disease recurrence. No further intervention is planned at this time. I will plan to see him in three months in [place] and will plan to repeat the CT in 6 months, sooner if clinically indicated. documented in this encounter Plan of Treatment Upcoming Encounters Date Type Specialty Care Team Description 02/23/2022 Office Visit Hematology and Oncology Gigi Sosa MD [facility] [place] [address] Ebonie Gordon APRN [address] [place] [address] DR MEDICAL ON[facility]OGY [place], [place] [id number] documented as of this encounter Visit Diagnoses Diagnosis Malignant neoplasm of head of pancreas documented in this encounter Care Teams Skimmer Relationship Specialty Start Date End Date Corrie Pacheco APRN PCP - General Family Medicine 04/04/[address] [place], [place] [id number] documented as of this encounter
--- OUTSIDE RECORDS SUMMARY | 2022-02-23 01:42 | XMS_ITS | Encounter Summary ---
:1960 Author Organization [facility] [place] [address] Care Team Providers Name Role Phone Corrie Pacheco APRN Primary Care Provider Reason for Referral Diagnostic Test (Routine) - Closed Specialty Diagnoses / Procedures Referred By Contact Refer red To Contact Radiology Diagnoses Malignant neoplasm of head of pancreas Gigi Sosa MD [facility] Rad Nuclear Med Procedures NM PET CT Skull Base [place] [address] [place] [address] Referral ID Status Reason Start Date Expiration Date Visits V isits Requested Authorized [id number] Closed Specialty 08/12/2020 10/10/2020 1 1 Service Requested Reason for Visit Diagnostic Test (Routine) - Closed Specialty Diagnoses / Procedures Referred By Contact Refer red To Contact Radiology Diagnoses Malignant neoplasm of head of pancreas Gigi Sosa MD [facility] Rad Nuclear Med Procedures NM PET CT Skull Base to Mid-thigh [facility] [place] [address] [place] [address] Referral ID Status Reason Start Date Expiration Date Visits V isits Requested Authorized [id number] Closed Specialty 08/12/2020 10/10/2020 1 1 Service Requested Encounter Details Date Type Department Care Team Description 08/23/2020 Hospital Encounter Nuclear Medicine at [facility], Gigi Malignant neoplasm Alice Solis MD of head of pancreas [facility] [address] [place], [place] [address] JESSY BUNCH [phone] Social History Tobacco Use Types Packs/Day Years [...] place to sleep or slept in a intermediate (including now)? Sex Assigned at Date Recorded Male 07/24/2020 7:58 PM EDT documented as of this encounter Medications at Time of Discharge Medication Sig Dispensed Refills Start Date End Date CREON 24,000-76,000 TAKE 1 TO 2 300 capsule 5 10/27/2018 -120,000 unit Capsule, CAPSULES BY MOUTH 3 Delayed TIMES DAILY WITH Release(E.C.)Indications MEALS AND 1 CAPSULE : Exocrine pancreatic WITH SNACKS. MAX 9 insufficiency CAPS PER DAY. documented as of this encounter Plan of Treatment Upcoming Encounters Date Type Specialty Care Team Description 02/23/2022 Office Visit Hematology and Oncology Gigi Sosa MD [facility] [place] [address] Ebonie Gordon, [address] [place] [address] documented as of this encounter Procedures Procedure Name Priority Date/Time Associated Diagnosis Comme nts NM PET CT SKULL Routine 08/23/2020 9:24 AM Malignant neoplasm Results for this BASE TO MID-THIGH EDT of head of pancreas pro cedure are in ([facility]) the results section. documented in this encounter Results NM PET CT Skull Base to Mid-thigh (08/23/2020 9:24 AM EDT) Anatomical Region Laterality Modality Positron Emission To mography (PET) Specimen (Source) Anatomical Location Collection Method / Collectio n Time Received Time / Laterality Volume Impressions 08/23/2020 2:36 PM EDT 1. ??Small focus of FDG avid soft tissue fullness in the pancreatic head resection bed, highly suspicious for loc al tumor recurrence. 2. ??Bilateral FDG avid opacities in the bilateral posterior upper and lower lobes, markedly increased in size compar ed to recent CT of 08/09/2020 and consistent with an interval inflammatory /infectious process. 3. ??Multiple FDG avid lymph nodes in th e bilateral supraclavicular, bilateral mediastinal, and bilateral hilar regions , which are nonspecific and favored to represent inflammatory adenopathy due to the above-mentioned pneumonia. Consider short interval follow-up PET/CT to ensur e resolution. 4. ??Small FDG avid lymph nodes in the r ight axilla are consistent with benign reactive nodes due to recent Covid vacci nation in the right arm. I have personally reviewed the image(s) and the resident's interpretation and agree with the findings, Deshawn Escalante at 08/23/2020 2:36 PM Thank you for letting us participate in the care of this patient. ??If you are a health care provider and have any questi ons regarding this report, please contact the number below. ??For patients who have questions please contact the health personal carer that requested your imaging first. ? Narrative 08/23/2020 2:36 PM EDT EXAMINATION: NM PET CT SKULL BASE TO MID-THIGH ? CLINICAL HISTORY: Pancreatic cancer, bhupinder veillance pancreatic cancer s/p whipple procedure and post-operative chemotherapy. Increasing mesenteric soft tissue nodule in surgical bed.; Note - outside CT images are in system TECHNIQUE: Following IV injection of 18- uyfqxj-1-sjgneaxvssoc (FDG) a standard uptake of approximately 60 minutes, a no ncontrast CT scan followed by a PET scan were acquired from the base of the skull to mid thighs. The noncontrast CT was used for anatomic localization and photo n attenuation correction of the PET scan. Blood glucose level: 80 (mg/dL) FDG dose: 12.5 mCi COMPARISON: CT chest abdomen and pelvis 08/09/2020, 11/10/2019 FINDINGS: HEAD/NECK: Small FDG avid lymph nodes in the right greater than left bilateral supraclavicular regions, which appear si milar in size compared to recent CT of 08/09/2020, but increased in size compared to remote CT of 11/10/2019. CHEST: FDG avid ill-defined opacities in the po sterior bilateral upper and lower lobes, which were present at a much smaller siz e on recent CT of 08/09/2020 and consistent with an interval worsening in flammatory/infectious process. Multiple FDG avid lymph nodes in the rig ht upper and lower paratracheal, prevascular, and subcarinal regions, sim ilar in size compared to recent CT of 08/09/2020 and increased in size compared to remote CT of 11/2019. Multiple small FDG avid lymph nodes in the bilateral hi lar regions. Multiple small benign-appearing lymph no isabella in the right axilla are consistent with benign reactive nodes due to recent Covid vaccination in the right arm. ABDOMEN/PELVIS: Small focus of FDG avid soft tissue full ness in the pancreatic head resection bed (CT axial image 148) which is better characterized in size on recent CT of 08/09/2020 and which appears slightly incr eased in size compared to more remote CT of 11/10/2019. Normal activity in all othe r soft tissue regions. SKELETON/EXTREMITIES: Normal activity in all regions of the ax ial and visualized appendicular skeleton. Procedure Note Joel Yarbrough MD - 08/23/2020Formatti ng of this note might be different from the original. EXAMINATION: NM PET CT SKULL BASE TO MID -THIGH CLINICAL HISTORY: Pancreatic cancer, bhupinder veillance pancreatic cancer s/p whipple procedure and post-operative chemotherapy. Increasing mesenteric soft tissue nodule in surgical bed.; Note - outside CT images are in DH system TECHNIQUE: Following IV injection of 18- oybqbx-4-bupalafxnnza (FDG) a standard uptake of approximately 60 minutes, a no ncontrast CT scan followed by a PET scan were acquired from the base of the skull to mid thighs. The noncontrast CT was used for anatomic localization and photo n attenuation correction of the PET scan. Blood glucose level: 80 (mg/dL) FDG dose: 12.5 mCi COMPARISON: CT chest abdomen and pelvis 08/09/2020, 11/10/2019 FINDINGS: HEAD/NECK: Small FDG avid lymph nodes in the right greater than left bilateral supraclavicular regions, which appear si milar in size compared to recent CT of 08/09/2020, but increased in size compared to remote CT of 11/10/2019. CHEST: FDG avid ill-defined opacities in the po sterior bilateral upper and lower lobes, which were present at a much smaller siz e on recent CT of 08/09/2020 and consistent with an interval worsening in flammatory/infectious process. Multiple FDG avid lymph nodes in the rig ht upper and lower paratracheal, prevascular, and subcarinal regions, sim ilar in size compared to recent CT of 08/09/2020 and increased in size compared to remote CT of 11/2019. Multiple small FDG avid lymph nodes in the bilateral hi lar regions. Multiple small benign-appearing lymph no isabella in the right axilla are consistent with benign reactive nodes due to recent Covid vaccination in the right arm. ABDOMEN/PELVIS: Small focus of FDG avid soft tissue full ness in the pancreatic head resection bed (CT axial image 148) which is better characterized in size on recent CT of 08/09/2020 and which appears slightly incr eased in size compared to more remote CT of 11/10/2019. Normal activity in all othe r soft tissue regions. SKELETON/EXTREMITIES: Normal activity in all regions of the ax ial and visualized appendicular skeleton. IMPRESSION 1. Small focus of FDG avid soft tissue f ullness in the pancreatic head resection bed, highly suspicious for loc al tumor recurrence. 2. Bilateral FDG avid opacities in the b ilateral posterior upper and lower lobes, markedly increased in size compar ed to recent CT of 08/09/2020 and consistent with an interval inflammatory /infectious process. 3. Multiple FDG avid lymph nodes in the bilateral supraclavicular, bilateral mediastinal, and bilateral hilar regions , which are nonspecific and favored to represent inflammatory adenopathy due to the above-mentioned pneumonia. Consider short interval follow-up PET/CT to ensur e resolution. 4. Small FDG avid lymph nodes in the rig ht axilla are consistent with benign reactive nodes due to recent Covid vacci nation in the right arm. I have personally reviewed the image(s) and the resident's interpretation and agree with the findings, Deshawn Escalante at 08/23/2020 2:36 PM Thank you for letting us participate in the care of this patient. If you are a health care provider and have any questi ons regarding this report, please contact the number below. For patients w ho have questions please contact the health personal carer that requested your imaging first. Electronically signed by: Joel Yarbrough MD, [facility] ([phone]), at 08/23/2020 2:36 PM Gigi Sosa MD IMG PET ORDERABLES documented in this encounter Visit Diagnoses Diagnosis Malignant neoplasm of head of pancreas documented in this encounter Administered Medications Inactive Administered Medications - up to 3 most recent administrations Medication Order MAR Action Action Date Dose Rate Site fludeoxyglucose (F-18) FDG Given 08/23/2020 8:07 AM 12.5 mCi Right Arm injection 0-20 mCi EDT 0-20 mCi, Intravenous, ONCE PRN, 1 dose, Starting on Sat08/23/20 at 0824, Until Sat08/23/20 at 0807, Per Protocol, Radiology Contrast, Routine documented in this encounter Care Teams Textile 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
--- OUTSIDE RECORDS SUMMARY | 2022-02-23 01:42 | XMS_ITS | Encounter Summary ---
:1960 Author Organization [facility] [place] [address] Care Team Providers Name Role Phone Corrie Pacheco APRN Primary Care Provider Encounter Details Date Type Department Care Team Description 05/19/2019 Hospital Encounter Hematology and Maligna nt neoplasm of head of pancreas; [facility]cology at [facility] Vitamin B12 deficiency; [facility] Iron defi ciency anemia secondary to inadequate dietary iron intake; [place] [address] Social History Tobacco Use Types Packs/Day Years [...] place to sleep or slept in a alf (including now)? Sex Assigned at Date Recorded [...] Visit Hematology and Oncology Gigi Sosa MD [facility] [place] [address] Ebonie Gordon, [address] [place] [address] documented as of this encounter Procedures Procedure Name Priority Date/Time Associated Diagnosis Comme nts HEMOGRAM Routine 05/19/2019 7:07 Malignant neoplasm of Res ults for this AM EST head of pancreas procedure a re in the results section. DIFFERENTIAL, Routine 05/19/2019 7:07 Malignant neoplasm of Re sults for this AUTOMATED AM EST head of pancreas procedure a re in the results section. HC CARBOHYDRATE Routine 05/19/2019 7:07 Malignant neoplasm of Results for this ANTIGEN 19-9 AM EST head of pancreas procedure a re in the results section. HC PCH VITAMIN A Routine 05/19/2019 7:07 Exocrine pancreatic R esults for this AM EST insufficiency procedure are in the results section. HC CBC,PLT & AUTO Routine 05/19/2019 7:07 Malignant neoplasm o f DIFF AM EST head of pancreas HC SERUM IRON Routine 05/19/2019 7:07 Iron deficiency Results for this AM EST anemia secondary to procedur e are in inadequate dietary the resul ts iron intake section. HC FERRITIN, SERUM Routine 05/19/2019 7:07 Iron deficiency Res ults for this AM EST anemia secondary to procedur e are in inadequate dietary the resul ts iron intake section. HC VITAMIN B12 SERUM Routine 05/19/2019 7:07 Vitamin B12 Resu lts for this AM EST deficiency procedure are i n the results section. COMPREHENSIVE Routine 05/19/2019 7:07 Malignant neoplasm of Re sults for this METABOLIC PANEL AM EST head of pancreas procedur e are in (NON-FASTING) the results section. documented in this encounter Results Differential, Automated (05/19/2019 7:07 AM EST) P athologist Signature Neutrophils % 48.0 % [facility] LABOR[facility]ORY Neutr Abs (ANC) 2.43 1.70 - [facility] 6.10 [facility] x10(3)/[facility] LABORATORY Lymphocytes % 33.9 % [facility] Lymphocytes Abs 1.7 0.9 - 3.2 [facility] x10(3)/[facility] LABORATORY Monocytes % 14.5 % [facility] Monocyte Abs 0.7 0.3 - 0.9 [facility] x10(3)/[facility] LABORATORY Eosinophils % 2.6 % [facility] Eosinophils Abs 0.1 0.0 - 0.4 [facility] x10(3)/[facility] LABORATORY Basophils % 0.6 % [facility] Basophils Abs 0.0 0.0 - 0.1 [facility] x10(3)/[facility] LABORATORY Immature Gran % 0.40 % [facility] Comment: Immature granulocytes(IG's)percentage an d absolute count will include metamyelocytes, myelocytes, and promyelo cytes. Blood smears from CBCs yielding IG's will be scanned manually for concor dance. If this scan disagrees with the automated IG or if promyelocytes are not ed, a manual differential will be performed. [place] Gran Abs 0.02 0.00 - 0.04 x10(3)/[facility] LABORATORY Specimen Anatomical Collection Method Collection Time Receive d Time (Source) Location / / Volume Laterality Blood specimen 05/19/2019 7:07 AM 020 7:14 (specimen) EST AM EST Resulting Agency Comment Spec In Lab Gigi Sosa MD HEMATOLOGY ORDERABLES Performing Organization Address City/State/[place] [address] (ABNORMAL) Hemogram (05/19/2019 7:07 AM EST) Analysis Performed At Patho logist Time Signature WBC 5.0 4.0 - 9.5 [facility] x10(3)/[facility] LABORATORY RBC 4.63 4.58 - [facility] x10(6)/[facility] LABORATORY Hemoglobin 14.2 13.7 - [facility] 16.[facility] gm/dL [facility] LABORATORY Hematocrit 43.1 40.5 - [facility] 48.5 % [facility] MCV 93.1 82.9 - [facility]1 [facility] LABORATORY MCH 30.7 27.5 - [facility] 32.1 pg [facility] MCHC 32.9 32.0 - [facility] 35.7 gm/dL [facility]ORY Platelets 161 145 - 357 [facility] x10(3)/[facility] LABORATORY RDWSD 45.1 (H) 36.0 - [facility] 45.0 [facility] LABORATORY RDWCV 13.2 11.4 - [facility] 13.8 % [facility] LABORATORY MPV 9.5 7.6 - 12.9 [facility] LABORATORY nRBC % Auto 0.0 % [facility] LAB[facility]ORY nRBC Abs Auto 0.000 0.000 - [facility] 0.000 [facility] x10(3)/[facility] LABORATORY Specimen Anatomical Collection Method Collection Time Receive d Time (Source) Location / / Volume Laterality Blood specimen 05/19/2019 7:07 AM 020 7:14 (specimen) EST AM EST Resulting Agency Comment Spec In Lab Gigi Sosa MD HEMATOLOGY ORDERABLES Performing Organization Address City/State/[place] [address] Vitamin A (05/19/2019 7:07 AM EST) athologist Signature Vitamin A 48.1 32.5 - 78.0 [facility] LABORATORY Comment: ADDITIONAL INFORMATIO N This test was developed and its performa nce characteristics determined by [facility] in a manner co nsistent with CLIA requirements. This test has not been brenda ared or approved by the U.S. Food and Drug Administration. Test Performed by: [facility] [address] [place] [address] Hair Tinter: Renan Chisholm M.D. Ph. D.; CLIA# [id number] Specimen Anatomical Collection Method Collection Time Receive d Time (Source) Location / / Volume Laterality Blood specimen 05/19/2019 7:07 AM 020 8:40 (specimen) EST AM EST Resulting Agency Comment Spec In Lab Lázaro Collazo MD CHEMISTRY ORDERABLES Performing Organization Address City/[facility]/[place] [address] Iron (05/19/2019 7:07 AM EST) P athologist Signature Iron 79 45 - 160 [facility] LABORATORY Specimen Anatomical Collection Method Collection Time Receive d Time (Source) Location / / Volume Laterality Blood specimen 05/19/2019 7:07 AM 020 7:14 (specimen) EST AM EST Resulting Agency Comment Spec In Lab Lázaro Collazo MD CHEMISTRY ORDERABLES Performing Organization Address City/[facility]/[place] [address] Ferritin (05/19/2019 7:07 AM EST) athologist Signature Ferritin 362 30 - 400 [facility] ng/mL [facility] LAB[facility]ATORY Comment: Pediatric reference ranges not verified at [facility], interpret with caution. Reference ranges for females greater faheem n 50 years of age approach values for men, i.e., 30-400 ng/mL. Specimen Anatomical Collection Method Collection Time Receive d Time (Source) Location / / Volume Laterality Blood specimen 05/19/2019 7:07 AM 020 7:14 (specimen) EST AM EST Resulting Agency Comment Spec In Lab Lázaro Collazo MD CHEMISTRY ORDERABLES Performing Organization Address City/[facility]/ZIP [facility] Phon e Number [address] Vitamin B12 (05/19/2019 7:07 AM EST) athologist Signature Vitamin B-12 1,019 232 - 1,245 [facility] pg/mL [facility] LABORATORY Specimen Anatomical Collection Method Collection Time Receive d Time (Source) Location / / Volume Laterality Blood specimen 05/19/2019 7:07 AM 020 7:14 (specimen) EST AM EST Resulting Agency Comment Spec In Lab Lázaro Collazo MD CHEMISTRY ORDERABLES Performing Organization Address City/[facility]/ZIP Code Phon e Number [address] Carbohydrate Antigen 19-9 (05/19/2019 7:07 AM EST) athologist Signature CA 19-9 <2.0 <=35.0 u/ml [facility] LABOR[facility]ORY Specimen Anatomical Collection Method Collection Time Receive d Time (Source) Location / / Volume Laterality Blood specimen 05/19/2019 7:07 AM 020 7:14 (specimen) EST AM EST Resulting Agency Comment Spec In Lab Gigi Sosa MD CHEMISTRY ORDERABLES Performing Organization Address City/[facility]/ZIP [facility] Phon e Number [address] Comprehensive metabolic panel (non-fasting) (05/19/2019 7:07 AM EST) athologist Signature Glucose Lvl 89 65 - 199 [facility] mg/dL [facility] LABORATORY Comment: Diabetes: >=200 mg/dL plus symp toms BUN 16 10 - 20 mg/dL [facility] LABORATORY Creatinine 0.80 0.80 - 1.50 mg/dL [facility] LABORATORY Sodium 141 135 - 145 mmol/L [facility] LABORATORY Potassium 3.8 3.5 - 5.0 mmol/L [facility] LABORATORY Comment: Please note: ??Patients with WBC >100,00 0 may have falsely elevated Potassium levels. ??For accurate Potassium quantif ication in these patients send serum separator tube (gold top) for subsequent determinations. ??Contact the Clinical Chemistry Laboratory if there are any qu estions. Chloride 102 98 - 107 mmol/L [facility] LAB[facility] CO2 30 22 - 31 mmol/L [facility] Anion Gap 9 5 - 15 mmol/L [facility] LABORATORY Calcium 9.1 8.5 - 10.5 mg/dL [facility] LABORATORY Total Protein 7.7 6.1 - 8.0 gm/dL [facility] LABOR[facility] Albumin 4.4 3.2 - 5.2 gm/dL [facility] AST 35 0 - 39 unit/L [facility] LABORATORY ALT 35 0 - 55 unit/L [facility] LABORATORY Alk Phos 86 40 - 130 unit/L [facility] LAB[facility] Total Bilirubin 0.2 0.2 - 1.3 mg/dL [facility] LABORATORY Estimated GFR 98 >=60 mL/min/1.73 m?? [facility] Comment: The eGFR was calculated using the CKD-EP I equation. As with all creatinine based estimates of kidney function, eGFR values calculated with the CKD-EPI equation are not accurate in patients wi th acute kidney failure, extremes of body mass or the acutely ill. http://[employer]/DHMCnkf eGFR 113 >=60 mL/min/1.73 m?? [facility] Comment: The eGFR was calculated using the CKD-EP I equation. As with all creatinine based estimates of kidney function, eGFR values calculated with the CKD-EPI equation are not accurate in patients wi th acute kidney failure, extremes of body mass or the acutely ill. http://[employer]/DHnkf Specimen Anatomical Collection Method Collection Time Receive d Time (Source) Location / / Volume Laterality Blood specimen 05/19/2019 7:07 AM 020 7:14 (specimen) EST AM EST Resulting Agency Comment Spec In Lab Gigi Sosa MD CHEMISTRY ORDERABLES Performing Organization Address City/State/[facility] [place] [address] documented in this encounter Visit Diagnoses Diagnosis Malignant neoplasm of head of pancreas Vitamin B12 deficiency Other B-complex deficiencies Iron deficiency anemia secondary to inad equate dietary iron intake Exocrine pancreatic insufficiency Other specified disease of pancreas documented in this encounter Care Teams Electronics Technology Department Chair Relationship Specialty Start Date End Date Corrie Pacheco APRN PCP - General Family Medicine 04/04/[address] [place] [place] [address] documented as of this encounter
--- OUTSIDE RECORDS SUMMARY | 2022-02-23 01:42 | XMS_ITS | Encounter Summary ---
:1960 Author Organization [facility] [place] [address] Care Team Providers Name Role Phone Corrie Pacheco APRN Primary Care Provider Encounter Details Date Type Department Care Team Description 02/12/2019 Orders Only Hematology and Oncology at Rip eGigi MD [facility] [place] [address] [place] [address] [phone] (Wo rk) Social History Tobacco Use Types [...] place to sleep or slept in a residential (including now)? Sex Assigned at Date Recorded Male 07/24/2020 7:58 PM EDT documented as of this encounter Plan of Treatment Upcoming Encounters Date Type Specialty Care Team Description 02/23/2022 Office Visit Hematology and Oncology Gigi Sosa MD [facility] [place] [address] Ebonie Gordon APRN [address] [place] [address] DR MEDICAL ONCOLOGY [place], [place] [id number] documented as of this encounter Visit Diagnoses Not on filedocumented in this encounter Care Teams Electrical Technology Instructor Relationship Specialty Start Date End Date Corrie Pacheco APRN PCP - General Family Medicine 04/04/[address] [place], [place] [id number] documented as of this encounter
--- OUTSIDE RECORDS SUMMARY | 2022-02-23 01:42 | XMS_ITS | Encounter Summary ---
:1960 Author Organization [facility] Address [facility] [place] [address] Care Team Providers Name Role Phone Corrie Pacheco APRN Primary Care Provider Reason for Visit Reason Onset Date Comments Appointment 07/10/2019 returning phone call Encounter Details Date Type Department Care Team Description 07/10/2019 Telephone Gastroenterology at [facility] Tiffany Pérez Appointment [facility] [address] ([place] [address] call) [phone] Social History Tobacco Use Types Packs/Day Years [...] PM EDT documented as of this encounter Miscellaneous Notes Telephone Encounter - Tiffany Pérez - 07/10/2019 10:29 AM EST Caller and relationship to patient (if other than patient): self Best time to reach caller: Any Message or Reason for Call: Returning phone call Appt Needed and Reason: Yes Provider: TBD documented in this encounter Plan of Treatment Upcoming Encounters Date Type Specialty Care Team Description 02/23/2022 Office Visit Hematology and Oncology Gigi Sosa MD [facility] [place] [address] Ebonie Gordon APRN [address] [place] [address] DR MEDICAL ONCOLOGY [place], [place] [address] documented as of this encounter Visit Diagnoses Not on filedocumented in this encounter Care Teams Anthropology Faculty Member Relationship Specialty Start Date End Date Corrie Pacheco APRN PCP - General Family Medicine 04/04/[address] [place], [place] [address] documented as of this encounter
--- OUTSIDE RECORDS SUMMARY | 2022-02-23 01:42 | XMS_ITS | Encounter Summary ---
:1960 Author Organization [facility] [place] [address] Care Team Providers Name Role Phone Corrie Pacheco APRN Primary Care Provider Encounter Details Date Type Department Care Team Description 07/14/2019 Hospital Encounter Hematology and Maligna nt [place]oplasm of [place]cology [place] [facility] [place] [address] Social History Tobacco Use Types Packs/Day Years [...] Visit Hematology and Oncology Gigi Sosa MD [facility] [place] [address] Ebonie Gordon, [address] [address] documented as of this encounter Procedures Procedure Name Priority Date/Time Associated Comments Diagnosis HEMOGRAM Routine 07/14/2019 9:23 AM Malignant neoplasm Res ults for this EDT of head of pancreas procedur e are in the results section. DIFFERENTIAL, Routine 07/14/2019 9:23 AM Malignant neoplasm Re sults for this AUTOMATED EDT of head of pancreas procedur e are in the results section. HC CARBOHYDRATE Routine 07/14/2019 9:23 AM Malignant neoplasm Results for this ANTIGEN 19-9 EDT of head of pancreas procedur e are in the results section. HC CBC,PLT & AUTO DIFF Routine 07/14/2019 9:23 AM Malignant ne oplasm EDT of head of pancreas COMPREHENSIVE Routine 07/14/2019 9:23 AM Malignant neoplasm Re sults for this METABOLIC PANEL EDT of head of pancreas mekhi morfin are in (NON-FASTING) the results section. documented in this encounter Results Differential, Automated (07/14/2019 9:23 AM EDT) P athologist Signature Neutrophils % 53.4 % [facility] Neutr Abs (ANC) 2.70 1.70 - [facility] 6.10 [facility] x10(3)/[facility] LABORATORY Lymphocytes % 31.3 % [facility] Lymphocytes Abs 1.6 0.9 - 3.2 [facility] x10(3)/[facility] LABORATORY Monocytes % 13.1 % [facility] Monocyte Abs 0.7 0.3 - 0.9 [facility] x10(3)/[facility] LABORATORY Eosinophils % 1.2 % [facility] Eosinophils Abs 0.1 0.0 - 0.4 [facility] x10(3)/[facility] LABORATORY Basophils % 0.8 % [facility] Basophils Abs 0.0 0.0 - 0.1 [facility] x10(3)/[facility] LABORATORY Immature Gran % 0.20 % [facility] Comment: Immature granulocytes(IG's)percentage an d absolute count will include metamyelocytes, myelocytes, and promyelo cytes. Blood smears from CBCs yielding IG's will be scanned manually for concor dance. If this scan disagrees with the automated IG or if promyelocytes are not ed, a manual differential will be performed. [place] Gran Abs 0.01 0.00 - 0.04 x10(3)/[facility] Specimen Anatomical Collection Method Collection Time Receive d Time (Source) Location / / Volume Laterality Blood specimen 07/14/2019 9:23 AM 020 9:44 (specimen) EDT AM EDT Resulting Agency Comment Spec In Lab Gigi Sosa MD HEMATOLOGY ORDERABLES Performing Organization Address City/State/[place] [address] (ABNORMAL) Hemogram (07/14/2019 9:23 AM EDT) Analysis Performed At Patho logist Time Signature WBC 5.0 4.0 - 9.5 [facility] x10(3)/[facility] LABORATORY RBC 4.46 (L) 4.58 - [facility] 5.54 [facility] x10(6)/[facility] LABORATORY Hemoglobin 13.7 13.7 - [facility] 16.5 gm/dL [facility] Hematocrit 42.4 40.5 - [facility] 48.5 % [facility] MCV 95.1 (H) 82.9 - [facility] MCH 30.7 27.5 - [facility] 32.1 pg [facility] MCHC 32.3 32.0 - [facility] 35.[facility] gm/dL [facility] Platelets 175 145 - 357 [facility] x10(3)/[facility] LABORATORY RDWSD 46.2 (H) 36.0 - [facility] 45.0 [facility] LABORATORY RDWCV 13.2 11.4 - [facility] 13.8 % [facility] MPV 9.4 7.6 - 12.9 [facility] LABORATORY nRBC % Auto 0.0 % [facility] nRBC Abs Auto 0.000 0.000 - [facility] x10(3)/[facility] LABORATORY Specimen Anatomical Collection Method Collection Time Receive d Time (Source) Location / / Volume Laterality Blood specimen 07/14/2019 9:23 AM 020 9:44 (specimen) EDT AM EDT Resulting Agency Comment Spec In Lab Gigi Sosa MD HEMATOLOGY ORDERABLES Performing Organization Address City/State/[place] [address] Comprehensive metabolic panel (non-fasting) (07/14/2019 9:23 AM EDT) P athologist Signature Glucose Lvl 97 65 - 199 [facility] mg/dL [facility] Comment: Diabetes: >=200 mg/dL plus symp toms BUN 15 10 - 20 mg/dL [facility] Creatinine 0.97 0.80 - 1.50 mg/dL [facility] Sodium 139 135 - 145 mmol/L [facility] Potassium 4.7 3.5 - 5.0 mmol/L [facility] Comment: Please note: ??Patients with WBC >100,00 0 may have falsely elevated Potassium levels. ??For accurate Potassium quantif ication in these patients send serum separator tube (gold top) for subsequent determinations. ??Contact the Clinical Chemistry Laboratory if there are any qu estions. Chloride 101 98 - 107 mmol/L [facility] CO2 28 22 - 31 mmol/L [facility] Anion Gap 10 5 - 15 mmol/L [facility] Calcium 9.5 8.5 - 10.5 mg/dL [facility] Total Protein 7.5 6.1 - 8.0 gm/dL [facility] Albumin 4.3 3.2 - 5.2 gm/dL [facility] AST 29 0 - 39 unit/L [facility] ALT 32 0 - 55 unit/L [facility] Alk Phos 77 40 - 130 unit/L [facility] Total Bilirubin 0.3 0.2 - 1.3 mg/dL [facility] Estimated GFR 85 >=60 mL/min/1.73 m?? [facility] Comment: The eGFR was calculated using the CKD-EP I equation. As with all creatinine based estimates of kidney function, eGFR values calculated with the CKD-EPI equation are not accurate in patients wi th acute kidney failure, extremes of body mass or the acutely ill. http://[employer]/DHMCnkf eGFR 99 >=60 mL/min/1.73 m?? [facility] Comment: The eGFR was calculated using the CKD-EP I equation. As with all creatinine based estimates of kidney function, eGFR values calculated with the CKD-EPI equation are not accurate in patients wi th acute kidney failure, extremes of body mass or the acutely ill. [email or web address] Specimen Anatomical Collection Method Collection Time Receive d Time (Source) Location / / Volume Laterality Blood specimen 07/14/2019 9:23 AM 020 9:45 (specimen) EDT AM EDT Resulting Agency Comment Spec In Lab Gigi Sosa MD CHEMISTRY ORDERABLES Performing Organization Address City/[facility]/[place] [address] Carbohydrate Antigen 19-9 (07/14/2019 9:23 AM EDT) P athologist Signature CA 19-9 <2.0 <=35.0 u/ml [facility] Specimen Anatomical Collection Method Collection Time Receive d Time (Source) Location / / Volume Laterality Blood specimen 07/14/2019 9:23 AM 020 9:44 (specimen) EDT AM EDT Resulting Agency Comment Spec In Lab Gigi Sosa MD CHEMISTRY ORDERABLES Performing Organization Address City/[facility]/[place] [address] documented in this encounter Visit Diagnoses Diagnosis Malignant neoplasm of head of pancreas documented in this encounter Care Teams Home Office Representative Relationship Specialty Start Date End Date Corrie Pacheco APRN PCP - General Family Medicine 04/04/18 [place] [address] documented as of this encounter
--- OUTSIDE RECORDS SUMMARY | 2022-02-23 01:42 | XMS_ITS | Encounter Summary ---
:1960 Author Organization [facility] [place] [address] Care Team Providers Name Role Phone Corrie Pacheco APRN Primary Care Provider Reason for Visit Reason Comments Follow-up Encounter Details Date Type Department Care Team Description 10/18/2020 Office Visit Hematology and Gigi Sosa Maligna nt [place]oplasm [place] [facility] [place] head of [place] [facility] [address] [place] [address] [place] [address] [phone] Social History Tobacco Use Types Packs/Day Years [...] Sign Reading Time Taken Comments Blood Pressure 123/81 10/18/2020 1:21 PM EDT Pulse 65 10/18/2020 1:21 PM EDT Temperature 36.7 ??C (98.1 ??F) 10/18/2020 1:21 PM EDT Respiratory Rate 20 10/18/2020 1:21 PM EDT Oxygen Saturation 98% 10/18/2020 1:21 PM EDT Inhaled Oxygen Concentration - - Weight 84.9 kg (187 lb 3.2 oz) 10/18/2020 1:21 PM EDT Height 173.5 cm (5' 8.31) 10/18/2020 1:21 PM EDT Body Mass Index 28.21 10/18/2020 1:21 PM EDT documented in this encounter Progress Notes Gigi Sosa MD - 10/18/2020 1:30 PM EDT Subjective: Patient ID: Jaciel Combs is 59 y.o. Problem List: 1. Pancreatic cancer; pT2N0 [...] and may- catenin (negative for nuclear staining). [id number] is retained in lesional cells. ??Overall, the [...] measured 14 mm, suspicious for recurrent disease. [facility] second read - IMPRESSION ?? 1. Unexpected [...] with resolved infection 3. RIGHT heart enlargement HPI Jaciel Hill is seen in f/u of pancreatic cancer. The history is summarized above. On 05/05/18 he underwent a robotic Whipple procedure by Dr. Collazo. The path report is above. On 06/25/18, he began adjuvant chemotherapy with Folfirinox. He completed the planned 12 cycles of therapy on 11/24/18. CT 08/09/20 - indeterminate ground glass opacities in the lungs and increased prominence of a mesenteric soft tissue nodule. A PET scan was done on 08/24/20. He was feeling well that day. However, he had been feeling poorly and was off of work from about 08/11 and returned 08/23. His main symptom was feeling very fatigued. He did not have fevers, chills and no cough or SOB. He had no loss of taste or smell. His appetite was very poor during this time and he ate very little. He then felt much better very quickly on 08/18 or 08/19. His energy returned and he felt back to himself. The PET scan showed findingsc/w pulmonary infectious/inflammatory process. Jaciel is accompanied to clinic today by his Demi. He is feeling very well. He has no cough or SOB. No fevers. 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 He is eating well, no weight loss. His bowels are regular. 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 HENT: Head: Normocephalic and atraumatic. Eyes: General: No scleral icterus. Cardiovascular: Rate and Rhythm: Normal rate. Pulmonary: Effort: No respiratory distress. Musculoskeletal: General: No swelling. Skin: General: Skin is warm and dry. Findings: No rash. Neurological: General: No focal deficit present. Mental Status: He is alert. Coordination: Coordination normal. Psychiatric: Mood and Affect: Mood normal. Thought Content: Thought content normal. Labs: Recent Results (from the past 24 hour(s)) POCT Glucose Result Value Ref Range POC Glucose 94 65 - 199 mg/dL Comprehensive metabolic panel (non-fasting) Result Value Ref Range Glucose Lvl 104 65 - 199 mg/dL BUN 21 (H) 10 - 20 mg/dL Creatinine 0.94 0.80 - 1.50 mg/dL Sodium 142 135 - 145 mmol/L Potassium 4.3 3.5 - 5.0 mmol/L Chloride 105 98 - 107 mmol/L CO2 30 22 - 31 mmol/L Anion Gap 7 5 - 15 mmol/L Calcium 9.2 8.5 - 10.5 mg/dL Total Protein 7.3 6.1 - 8.0 gm/dL Albumin 4.4 3.2 - 5.2 gm/dL AST 20 0 - 39 unit/L ALT 22 0 - 55 unit/L Alk Phos 56 40 - 130 unit/L Total Bilirubin 0.3 0.2 - 1.3 mg/dL Estimated GFR 88 >=60 mL/min/1.73 m?? Hemogram Result Value Ref Range WBC 6.6 4.0 - 9.5 x10(3)/mcL RBC 4.64 4.58 - 5.54 x10(6)/mcL Hemoglobin 14.4 13.7 - 16.5 gm/dL Hematocrit 42.7 40.5 - 48.5 % MCV 92.0 82.9 - 93.1 fL MCH 31.0 27.5 - 32.1 pg MCHC 33.7 32.0 - 35.7 gm/dL Platelets 199 145 - 357 x10(3)/mcL RDWSD 46.6 (H) 36.0 - 45.0 fL RDWCV 13.8 11.4 - 13.8 % MPV 9.4 7.6 - 12.9 fL nRBC % Auto 0.0 % nRBC Abs Auto 0.000 0.000 - 0.000 x10(3)/mcL Differential, Automated Result Value Ref Range Neutrophils % 53.6 % Neutr Abs (ANC) 3.55 1 - 6 x10(3)/mcL Lymphocytes % 32.6 % Lymphocytes Abs 2.2 0.9 - 3.2 x10(3)/mcL Monocytes % 8.5 % Monocyte Abs 0.6 0.3 - 0.9 x10(3)/mcL Eosinophils % 3.9 % Eosinophils Abs 0.3 0.0 - 0.4 x10(3)/mcL Basophils % 1.1 % Basophils Abs 0.1 0.0 - 0.1 x10(3)/mcL Immature Gran % 0.30 % [place] Gran Abs 0.02 0.00 - 0.04 x10(3)/mcL CA 19-9 10/18/20 08/09/20 <2 11/10/19 <2 07/14/19 <2 05/19/19 <2 01/02/19 <2 06/06/18 3 04/15/18 0.7 PET scan personally reviewed, report above Assessment and Plan: Mr. Combs is 59 yo, seen in f/u of pancreatic cancer. Presented late 03/[address] - [...] was not recommended as it would not private branch exchange service adviser or recommendations regarding quarantine. Because his symptoms had resolved, I did not start antibiotics. A PET scan was repeated today, 10/18/20. This shows an increase in the FDG avid soft tissue focus in the pancreatic bed, now measuring 1.8 cm. There has been resolution of the FDG avid pulmonary opacities and near complete resolution of FDG avid thoracic adenopathy consistent with resolved infection. I am going to present his case at GI Tumor Board next week to talk about whether a biopsy is needed and treatment options, specifically local therapy approaches such as SBRT or ablation. He is fully vaccinated against Covid 19. documented in this encounter Plan of Treatment Upcoming Encounters Date Type Specialty Care Team Description 02/23/2022 Office Visit Hematology and Oncology Gigi Sosa MD [facility] [address] Ebonie Gordon APRN [address] [place] [address] DR MEDICAL ONCOLOGY [place], [place] [id number] documented as of this encounter Visit Diagnoses Diagnosis Malignant neoplasm of head of pancreas documented in this encounter Care Teams Registered Private Duty Nurse Relationship Specialty Start Date End Date Corrie Pacheco APRN PCP - General Family Medicine 04/04/[address] [place], [place] [address] documented as of this encounter
--- OUTSIDE RECORDS SUMMARY | 2022-02-23 01:42 | XMS_ITS | Encounter Summary ---
:1960 Author Organization [facility] [place] [address] Care Team Providers Name Role Phone Corrie Pacheco APRN Primary Care Provider Reason for Referral Diagnostic Test (Routine) - Closed Specialty Diagnoses / Procedures Referred By Contact Refer red To Contact Radiology Diagnoses Malignant neoplasm of head of pancreas Gigi Sosa MD [facility] Rad Nuclear Med Procedures NM PET CT Skull Base to Mid-thigh [facility] [place] [address] [place] [address] Referral ID Status Reason Start Date Expiration Date Visits V isits Requested Authorized [id number] Closed Specialty 09/30/2020 11/28/2020 1 1 Service Requested Encounter Details Date Type Department Care Team Description 09/09/2020 TH Visit Hematology/Oncology Rasheed Sosa MD [facility] [place] [address] Malignant neoplasm of (TeleHealth) at [facility] Antoinette Rodriguez APRN [address] [place] [address] [place] [address] head of pancreas [address] [place] [id number] Social History Tobacco Use Types Packs/Day Years [...] encounter Progress Notes Gigi Sosa MD - 09/09/2020 9:00 AM EDT Subjective: Patient ID: Jaciel Combs [...] and may- catenin (negative for nuclear staining). [id number] is retained in lesional cells. ??Overall, the [...] measured 14 mm, suspicious for recurrent disease. [facility] second read - IMPRESSION ?? 1. Unexpected [...] recent Covid vaccination in the right arm. VANESSA Combs is seen in f/u of pancreatic [...] PET scan showed findingsc/w pulmonary infectious/inflammatory process. This is a telephone encounter to f/u on his respiratory status and how he is feeling in general. He is feeling very well, much better. He has no cough or SOB. No fevers. 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 He is eating well, no weight loss. His bowels are regular. 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 Psychiatric/Behavioral: Negative. Objective: Physical Exam Neurological: He is alert. Labs: WBC/ANC - 4., Hgb/Hct - 15.4/45.7, Plts - 147,000. BUN/Cr - 19/1.0. Lytes and LFTs unremarkable CA 19-9 08/09/20 <2 11/10/19 <2 07/14/19 <2 05/19/19 <2 01/02/19 <2 06/06/18 3 04/15/18 0.7 Assessment and Plan: Mr. Combs is 59 [...] do a PET scan. This was done on 08/23/20. The soft tissue abnormality in the pancreaticbed is FDG avid, consistent with disease recurrence. [...] was not recommended as it would not loom changer or recommendations regarding quarantine. Because his symptoms had resolved, I did not start antibiotics. He is feeling very well and no further intervention is planned at this time. In terms of management of what appears to be a local recurrence of the pancreatic cancer, we discussed that this depends on the nature of the other areas of abnormality. If these other areas are reactive, then would consider local therapy such as SBRT or ablation to the mesenteric soft tissue abnormali ty. However, if the other areas are cancer related, then systemic therapy would be the main option. Our plan was to repeat the PET scan in about 8 weeks for further evaluation, ie in October. I will arrange for that and see him the same day at [facility]. He is due for the second covid vaccine on 09/11/20. I provided care to the patient today via telephone call. The total time associated with this visit was 15 minutes. documented in this encounter Plan of Treatment Upcoming Encounters Date Type Specialty Care Team Description 02/23/2022 Office Visit Hematology and Oncology Gigi Sosa MD [facility] [place] [address] [address] [place] [address] documented as of this encounter Results Carbohydrate Antigen 19-9 (10/18/2020 2:00 PM EDT) athologist Signature CA 19-9 <2.0 <=35.0 u/ml [facility] Specimen Anatomical Collection Method Collection Time Receive d Time (Source) Location / / Volume Laterality Blood 10/18/2020 2:00 PM 2:03 EDT PM EDT Resulting Agency Comment Spec In Lab Gigi Sosa MD CHEMISTRY ORDERABLES Performing Organization Address City/State/Z[place] [address] (ABNORMAL) Comprehensive metabolic panel (non-fasting) (10/18/2020 2:00 PM EDT) athologist Signature Glucose Lvl 104 65 - 199 [facility] mg/dL [facility] Comment: Diabetes: >=200 mg/dL plus symp toms BUN 21 (H) 10 - 20 mg/dL [facility] Creatinine 0.94 0.80 - 1.50 mg/dL [facility] Sodium 142 135 - 145 mmol/L [facility] Potassium 4.3 3.5 - 5.0 mmol/L [facility] Comment: Please note: ??Patients with WBC >100,00 0 may have falsely elevated Potassium levels. ??For accurate Potassium quantif ication in these patients send serum separator tube (gold top) for subsequent determinations. ??Contact the Clinical Chemistry Laboratory if there are any qu estions. Chloride 105 98 - 107 mmol/L [facility] CO2 30 22 - 31 mmol/L [facility] Anion Gap 7 5 - 15 mmol/L [facility] Calcium 9.2 8.5 - 10.5 mg/dL [facility] Total Protein 7.3 6.1 - 8.0 gm/dL [facility] Albumin 4.4 3.2 - 5.2 gm/dL [facility] AST 20 0 - 39 unit/L [facility] ALT 22 0 - 55 unit/L [facility] Alk Phos 56 40 - 130 unit/L [facility] Total Bilirubin 0.3 0.2 - 1.3 mg/dL [facility] Estimated GFR 88 >=60 mL/min/1.73 m?? [facility] Comment: This patient? s estimated glomerular filtration rate (eGFR) is between 88 mL/min/1.73 m2 (patients with less muscl e mass per kg body weight) and 102 mL/min/1.73 m2 (patients with more muscl e mass per kg body weight) as determined by the CKD-EPI equation. Asse ssment of eGFR is not appropriate when creatinine concentrations are rapidly ch anging. For clinical decisions where creatinine clearance will affect therapy , a 24-hour urine creatinine clearance may be advised. Assignment of CKD stage 1 - 5 for patien ts with an eGFR near the transition point between stages may be based on cli nical assessment of muscle mass and symptoms in addition to eGFR. Specimen Anatomical Collection Method Collection Time Receive d Time (Source) Location / / Volume Laterality Blood 10/18/2020 2:00 PM 2:03 EDT PM EDT Resulting Agency Comment Spec In Lab Gigi Sosa MD CHEMISTRY ORDERABLES Performing Organization Address City/State/[place] [address] NM PET CT Skull Base to Mid-thigh (10/18/2020 10:15 AM EDT) Anatomical Region Laterality Modality Positron Emission To mography (PET) Specimen (Source) Anatomical Location Collection Method / Collectio n Time Received Time / Laterality Volume Impressions 10/18/2020 10:52 AM EDT 1. ??Enlarging pancreatic bed recurrence 2. ??Resolution of FDG avid pulmonary op acities and near complete resolution of FDG avid thoracic adenopathy consistent with resolved infection 3. ??RIGHT heart enlargement Thank you for letting us participate in the care of this patient. ??If you are a health care provider and have any questi ons regarding this report, please contact the number below. ??For patients who have questions please contact the health home care specialist that requested your imaging first. ? Narrative 10/18/2020 10:52 AM EDT EXAMINATION: NM PET CT SKULL BASE TO MID-THIGH ? CLINICAL HISTORY: Pancreatic cancer, bhupinder veillance pancreatic cancer s/p whipple. ??Presume d local recurrence. ??Indeterminate findings in chest on prior exam. ??furth er evaluation lung findings and adenopathy on prior PE t scan of uncertain significance - infection/reactive vs cancer related. ?? Further evaluation TECHNIQUE: Following IV injection of 18- mgoyrz-4-ndxgevzjgtaa (FDG) a standard uptake of approximately 60 minutes, a no ncontrast CT scan followed by a PET scan were acquired from the base of the skull to mid thighs. The noncontrast CT was used for anatomic localization and photo n attenuation correction of the PET scan. Blood glucose level: 94 (mg/dL) FDG dose: 12.5 mCi Mean hepatic SUV currently 2.1, previous ly 2.1 COMPARISON: 08/23/2020 FINDINGS: HEAD/NECK: Normal activity in all soft tissue regio ns of the neck and visualized lower head. FDG avid supraclavicular nodes hav e resolved both anatomically and metabolically CHEST: Normal sized, mildly FDG avid RIGHT axil flo nodes persist but significantly less activity than on the prior exam. Th e FDG avid hilar and mediastinal nodes have resolved as have the bilateral FDG avid pulmonary opacities. No current intrathoracic areas of abnorm al FDG uptake other than the RIGHT ventricle which is enlarged and hypermet abolic. The RIGHT atrium is enlarged Gynecomastia . ABDOMEN/PELVIS: The focus of intense FDG uptake in the p ancreatic bed has increased in size and density. The SUV max has increased from 6.7 to 8.5 with an approximately 1.8 cm soft tissue density adjacent to the panc reatic head clips. There are no other abnormal intra-abdominal foci Enlarged prostate SKELETON/EXTREMITIES: Normal activity in all regions of the ax ial and visualized appendicular skeleton. Procedure Note Zohra Marie MD - 10/18/2020Formattin g of this note might be different from the original. EXAMINATION: NM PET CT SKULL BASE TO MID -THIGH CLINICAL HISTORY: Pancreatic cancer, bhupinder veillance pancreatic cancer s/p whipple. Presumed local recurrence. Indeterminate findings in chest on prior exam. further evaluation lung findings and adenopathy on prior PE t scan of uncertain significance - infection/reactive vs cancer related. Fu rther evaluation TECHNIQUE: Following IV injection of 18- elgjri-0-rslurcqjlytm (FDG) a standard uptake of approximately 60 minutes, a no ncontrast CT scan followed by a PET scan were acquired from the base of the skull to mid thighs. The noncontrast CT was used for anatomic localization and photo n attenuation correction of the PET scan. Blood glucose level: 94 (mg/dL) FDG dose: 12.5 mCi Mean hepatic SUV currently 2.1, previous ly 2.1 COMPARISON: 08/23/2020 FINDINGS: HEAD/NECK: Normal activity in all soft tissue regio ns of the neck and visualized lower head. FDG avid supraclavicular nodes hav e resolved both anatomically and metabolically CHEST: Normal sized, mildly FDG avid RIGHT axil flo nodes persist but significantly less activity than on the prior exam. Th e FDG avid hilar and mediastinal nodes have resolved as have the bilateral FDG avid pulmonary opacities. No current intrathoracic areas of abnorm al FDG uptake other than the RIGHT ventricle which is enlarged and hypermet abolic. The RIGHT atrium is enlarged Gynecomastia . ABDOMEN/PELVIS: The focus of intense FDG uptake in the p ancreatic bed has increased in size and density. The SUV max has increased from 6.7 to 8.5 with an approximately 1.8 cm soft tissue density adjacent to the panc reatic head clips. There are no other abnormal intra-abdominal foci Enlarged prostate SKELETON/EXTREMITIES: Normal activity in all regions of the ax ial and visualized appendicular skeleton. IMPRESSION 1. Enlarging pancreatic bed recurrence 2. Resolution of FDG avid pulmonary opac ities and near complete resolution of FDG avid thoracic adenopathy consistent with resolved infection 3. RIGHT heart enlargement Thank you for letting us participate in the care of this patient. If you are a health care provider and have any questi ons regarding this report, please contact the number below. For patients w ho have questions please contact the health home care specialist that requested your imaging first. Gigi Sosa MD IMG PET ORDERABLES documented in this encounter Visit Diagnoses Diagnosis Malignant neoplasm of head of pancreas Malignant neoplasm of head of pancreas documented in this encounter Care Teams Warp Starter Relationship Specialty Start Date End Date Corrie Pacheco APRN PCP - General Family Medicine 04/04/[address] [place] [address] [place] [address] documented as of this encounter
--- OUTSIDE RECORDS SUMMARY | 2022-02-23 01:42 | XMS_ITS | Encounter Summary ---
:1960 Author Organization [facility] [place] [address] Care Team Providers Name Role Phone Corrie Pacheco APRN Primary Care Provider Encounter Details Date Type Department Care Team Description 10/18/2020 Hospital Encounter Hematology and Maligna nt neoplasm of Oncology at [facility] [place] [address] Social History Tobacco Use Types Packs/Day [...] place to sleep or slept in a [place] health care facility (including now)? Sex Assigned at Date Recorded [...] Visit Hematology and Oncology Gigi Sosa MD [facility] [place] [address] Ebonie Gordon, [address] [place] [address] documented as of this encounter Procedures Procedure Name Priority Date/Time Associated Comments Diagnosis HEMOGRAM Routine 10/18/2020 2:00 PM Malignant neoplasm Res ults for this EDT of head of pancreas procedur e are in the results section. DIFFERENTIAL, Routine 10/18/2020 2:00 PM Malignant neoplasm Re sults for this AUTOMATED EDT of head of pancreas procedur e are in the results section. HC CARBOHYDRATE Routine 10/18/2020 2:00 PM Malignant neoplasm Results for this ANTIGEN 19-9 EDT of head of pancreas procedur e are in the results section. HC CBC,PLT & AUTO DIFF Routine 10/18/2020 2:00 PM Malignant ne oplasm EDT of head of pancreas COMPREHENSIVE Routine 10/18/2020 2:00 PM Malignant neoplasm Re sults for this METABOLIC PANEL EDT of head of pancreas proce dure are in (NON-FASTING) the results section. documented in this encounter Results Differential, Automated (10/18/2020 2:00 PM EDT) P athologist Signature Neutrophils % 53.6 % [facility] Neutr Abs (ANC) 3.55 1.70 - [facility] 6.10 [facility] x10(3)/[facility] LABORATORY Lymphocytes % 32.6 % [facility] Lymphocytes Abs 2.2 0.9 - 3.2 [facility] x10(3)/[facility] LABORATORY Monocytes % 8.5 % [facility] Monocyte Abs 0.6 0.3 - 0.9 [facility] x10(3)/[facility] LABORATORY Eosinophils % 3.9 % [facility] Eosinophils Abs 0.3 0.0 - 0.4 [facility] x10(3)/[facility] LABORATORY Basophils % 1.1 % [facility] Basophils Abs 0.1 0.0 - 0.1 [facility] x10(3)/[facility] LABORATORY Immature Gran % 0.30 % [...] [place] Gran Abs 0.02 0.00 - 0.04 x10(3)/[facility] Specimen Anatomical Collection Method Collection Time Receive d Time (Source) Location / / Volume Laterality Blood 10/18/2020 2:00 PM 2:03 EDT PM EDT Resulting Agency Comment Spec In Lab Gigi Sosa MD HEMATOLOGY ORDERABLES Performing Organization Address City/State/[place] [address] (ABNORMAL) Hemogram (10/18/2020 2:00 PM EDT) Analysis Performed At Patho logist Time Signature WBC 6.6 4.0 - 9.5 [facility] x10(3)/[facility] LABORATORY RBC 4.64 4.58 - [facility] 5.54 [facility] x10(6)/[facility] LABORATORY Hemoglobin 14.4 13.7 - [facility] 16.[facility] gm/dL [facility] Hematocrit 42.7 40.5 - [facility] 48.5 % [facility] MCV 92.0 82.9 - [facility] 93.1 [facility] LABORATORY MCH 31.0 27.5 - [facility] 32.1 pg [facility] MCHC 33.7 32.0 - [facility] 35.7 gm/dL [facility] Platelets 199 145 - 357 [facility] x10(3)/[facility] LABORATORY RDWSD 46.6 (H) 36.0 - [facility] 45.0 [facility] LABORATORY RDWCV 13.8 11.4 - [facility] 13.8 % [facility] MPV 9.4 7.6 - 12.9 [facility] LABORATORY nRBC % Auto 0.0 % [facility] nRBC Abs Auto 0.000 0.000 - [facility] 0.000 [facility] x10(3)/[facility] LABORATORY Specimen Anatomical Collection Method Collection Time Receive d Time (Source) Location / / Volume Laterality Blood 10/18/2020 2:00 PM 2:03 EDT PM EDT Resulting Agency Comment Spec In Lab Gigi Sosa MD HEMATOLOGY ORDERABLES Performing Organization Address City/State/[place] [address] Carbohydrate Antigen 19-9 (10/18/2020 2:00 PM EDT) P athologist Signature CA 19-9 <2.0 <=35.0 u/ml [facility] Specimen Anatomical Collection Method Collection Time Receive d Time (Source) Location / / Volume Laterality Blood 10/18/2020 2:00 PM 2:03 EDT PM EDT Resulting Agency Comment Spec In Lab Gigi Sosa MD CHEMISTRY ORDERABLES Performing Organization Address City/State/[place] [address] (ABNORMAL) Comprehensive metabolic panel (non-fasting) (10/18/2020 2:00 PM EDT) athologist Signature Glucose Lvl 104 65 - 199 [facility] mg/dL [facility] Comment: Diabetes: >=200 mg/dL plus symp toms BUN 21 (H) 10 - 20 mg/dL [facility] Creatinine 0.94 0.80 - 1.50 mg/dL [facility] Sodium 142 135 - 145 mmol/L [facility] Potassium 4.3 3.5 - 5.0 mmol/L [facility] Comment: Please note: ??Patients with WBC >100,00 0 may have falsely elevated Potassium levels. ??For accurate Potassium quantif ication in these patients send serum separator tube (gold top) for subsequent determinations. ??Contact the Clinical Chemistry Laboratory if there are any qu estions. Chloride 105 98 - 107 mmol/L [facility] CO2 30 22 - 31 mmol/L [facility] Anion Gap 7 5 - 15 mmol/L [facility] Calcium 9.2 8.5 - 10.5 mg/dL [facility] Total Protein 7.3 6.1 - 8.0 gm/dL [facility] Albumin 4.4 3.2 - 5.2 gm/dL [facility] AST 20 0 - 39 unit/L [facility] ALT 22 0 - 55 unit/L [facility] Alk Phos 56 40 - 130 unit/L [facility] Total Bilirubin 0.3 0.2 - 1.3 mg/dL [facility] Estimated GFR 88 >=60 mL/min/1.73 m?? [facility] Comment: This patient? s [...] Organization Address City/State/[place] [address] documented in this encounter Visit Diagnoses Diagnosis Malignant neoplasm of head of pancreas documented in this encounter Care Teams Nuclear Auxiliary Operator Relationship Specialty Start Date End Date Corrie Pacheco APRN PCP - General Family Medicine 04/04/18 [place] [address] documented as of this encounter
--- OUTSIDE RECORDS SUMMARY | 2022-02-23 01:42 | XMS_ITS | Encounter Summary ---
:1960 [place] [address] Care Team Providers Name Role Phone Corrie Pacheco APRN Primary Care Provider Encounter Details Date Type Department Care Team Description 08/11/2020 Ancillary Procedure Radiology Library Gigi Sosa Malignant neoplasm at [facility] MD Will of head of pancreas [facility] [address] [place] ON[place]OGY [address] [place], [place] [phone] [id number] Social History Tobacco Use Types Packs/Day Years [...] MD [facility] [place] [address] Ebonie Gordon, [address] [place] [address] documented as of this encounter Procedures Procedure Name Priority Date/Time Associated Diagnosis Comme nts REQUEST FOR 2ND Routine 08/11/2020 7:43 AM Malignant neoplasm Results for this READ CT CHEST EDT of head of pancreas procedu re are in ABDOMEN PELVIS the results section. documented in this encounter Results (ABNORMAL) Request For 2nd Read CT Chest Abdomen Pelvis (08/11/2020 7:43 AM EDT) Anatomical Region Laterality Modality Chest, Abdomen, Pelvis SO Specimen (Source) Anatomical Location Collection Method / Collectio n Time Received Time / Laterality Volume Impressions 08/11/2020 10:04 AM EDT 1. ??Unexpected finding: Enlarging centr al mesenteric soft tissue nodule at the level of mesenteric surgical clips. 2. ??Second mesenteric soft tissue nodul e at the additional surgical clips stable. 3. ??New poorly defined dual upper lobe groundglass opacities accompany new lower lobe peripheral subpleural airspace opac ities. Cannot distinguish infectious or inflammatory etiology from metastatic di sease. Short-term follow-up for this unexpected finding is suggested. Thank you for letting us participate in the care of this patient. ??If you are a health care provider and have any questi ons regarding this report, please contact the number below. ??For patients who have questions please contact the health point of care technician that requested your imaging first. ? Electronically signed by: Jesika Brower MD, [facility] ([phone]), at 08/11/2020 10:04 AM Narrative 08/11/2020 10:04 AM EDT EXAMINATION: REQUEST FOR 2ND READ CT CHEST ABDOMEN PELVIS CLINICAL HISTORY: pancreatic cancer s/p whipple. ??Outside Ct read - new pulmonary opacities, increased soft tiss ue mass surgical bed, question disease recurrence; Sending Institution [facility]; Da te of exam [id number]; I believe a reinterpretation of this exam may alter care of Patient. Yes; What Modality is the exam? CT Scan; Body Part (please add comments as necessary): chest, abd, pelvis TECHNIQUE: Helical CT of the chest, abdo men, and pelvis was performed following the intravenous administration of contra st. 100 cc Omnipaque 350 intravenous contrast. Dual phase imaging through the abdomen performed.. Oral contrast was administered. Study performed August 09 at [facility] and submitted August 11, 2020 for reinterpretation. COMPARISON: November 10, 2019 FINDINGS: Chest: Lungs and large airways: New dual poorly defined groundglass opacities measuring up to 2 cm in the upper lobes bilaterall y. New left greater then right lower lobe peripheral subpleural airspace opac ities, largest 12 mm left. Pleura: No effusion. Heart/vasculature: Normal size heart. No pericardial effusion. Smooth-walled normal caliber thoracic aorta. No centra l pulmonary emboli. Lymph nodes: Stable size and number of s mall prevascular, paratracheal and bilateral hilar lymph nodes. None pathol ogically enlarged. Mediastinum and karen: Residual or reacti ve thymic tissue is stable. Abdomen/pelvis: Liver: Normal size and attenuation witho ut lesions. Bile ducts: Nondilated. Gallbladder: Absent Pancreas: Status post Whipple resection. Surgical bed morphology stable. Soft tissue planes maintained. Spleen: Normal. Adrenals: Normal. Kidneys: Normal. Urinary Bladder: Normal. Vasculature: Normal caliber abdominal ao rta. Patent renal, portal and hepatic veins. Patent mesenteric and renal arter y origins. Stable soft tissue coursing parallel to the hepatic artery. Lymph Nodes: ??Stable size and number of small retroperitoneal lymph nodes. Stable soft tissue nodule abutting surgi robinson clips wedged between the superior mesenteric vein and left renal vein, ser ies 6 image 27. Enlarging soft tissue nodule at the level of mesenteric clips to the right of the SMV trunk, series 6 image 30 currently 18 mm, prior 14 mm. Bowel: Diverticulosis without acuity. No rmal caliber small bowel bowel. Peritoneum and mesentery: No ascites, fr ee air, or loculated fluid collection. No mesenteric inflammation. Abdominal wall: Enlarging ventral hernia containing not thickened knuckle of small bowel. Reproductive organs: Mild prostatic enla rgement with stable bladder base impression. Osseous structures: No suspicious lesion s. Resulting Agency Comment Unexpected Finding Gigi Sosa MD IMG OUTSIDE INTERPRETATION O RDERABLES documented in this encounter Visit Diagnoses Diagnosis Malignant neoplasm of head of pancreas documented in this encounter Care Teams Leather Tooler Relationship Specialty Start Date End Date Corrie Pacheco APRN PCP - General Family Medicine 04/04/18 [address] [place] [address] documented as of this encounter
--- OUTSIDE RECORDS SUMMARY | 2022-02-23 01:42 | XMS_ITS | Encounter Summary ---
:1960 Author Organization [facility] [place] [address] Care Team Providers Name Role Phone Corrie Pacheco APRN Primary Care Provider Reason for Visit Reason Comments Follow-up Encounter Details Date Type Department Care Team Description 12/12/2020 Procedure visit Radiation Oncology Marco Carlson I, Mal ignant neoplasm of at [facility] MD pancreas, unspecified [facility] location of [facility] DR malignancy [place], [place] RADIATION [address] ONCOLOGY [phone] [place], [place] [address] Social History Tobacco Use Types [...] Sign Reading Time Taken Comments Blood Pressure 118/62 12/12/2020 1:19 PM EDT Pulse 59 12/12/2020 1:19 PM EDT Temperature 36.4 ??C (97.6 ??F) 12/12/2020 1:19 PM EDT Respiratory Rate - - Oxygen Saturation 100% 12/12/2020 1:19 PM EDT Inhaled Oxygen Concentration - - Weight 82.6 kg (182 lb) 12/12/2020 1:19 PM EDT Height - - Body Mass Index 27.42 10/18/2020 1:21 PM EDT documented in this encounter Progress Notes Marco Carlson MD - 12/12/2020 2:00 PM EDT Images from the original note were not included. Radiation Oncology SBRT Procedure Note Patient Identity: Patient name: Jaciel Combs Date of : 1960 Chief complaint: Day 1: mild anxiety Oncologic History: Mr.Howard Bassam Combs is a [...] CA 19-9 is not expressive. Clinical trial: Medications 12/12/20 1332 Medication Sig Taking? CREON 24,000-76,000 -120,000 unit Capsule, Delayed Release(E.C.) TAKE 1 TO 2 CAPSULES BY MOUTH 3 TIMES DAILY WITH MEALS AND 1 CAPSULE WITH SNACKS. MAX 9 CAPS PER DAY. Patient not taking: Reported on 11/10/2019 Exam: Temp: [36.4 ??C (97.6 ??F)] Heart Rate: [59] Resp: -- BP: (118)/(62) SpO2: [100 %] Heart Rate from SpO2: [...] to treat the above diagnosis on the AddictiveT system. he was evaluated pre- treatment in [...] coverage was adequate and OAR doses were not in spec. Due to the above an online adaptive re-plan was performed and a modified plan was formulated. The delivered/adapted plan met the necessary cr iteria to ensure adequate target coverage and safety (ie OAR doses). ??? he was monitored continuously during treatment delivery with the real-time cine-loop MRI imaging. ??? his 1st of 5 SBRT treatments was successfully delivered. Impression/Plan: Impression: Jaciel Combs tolerated treatment without incident. Plan: ?? Continue radiation therapy as planned. documented in this encounter Plan of Treatment Upcoming Encounters Date Type Specialty Care Team Description 02/23/2022 Office Visit Hematology and Oncology Gigi Sosa MD [facility] [place] [address] Ebonie Gordon APRN [address] [place] [address] DR MEDICAL ONCOLOGY [facility], [place] [id number] documented as of this encounter Visit Diagnoses Diagnosis Malignant neoplasm of pancreas, unspecif ied location of malignancy documented in this encounter Administered Medications Inactive Administered Medications - up to 3 most recent administrations Medication Order MAR Action Action Date Dose Rate Site LORazepam (Ativan) tablet 1 mg Given 12/12/2020 1:55 PM EDT 1 mg 1 mg, Oral, ONCE, 1 dose, On 12/12/20 at 1415, Routine documented in this encounter Care Teams Field Operator Relationship Specialty Start Date End Date Corrie Pacheco APRN PCP - General Family Medicine 04/04/[address] [place] [place] [place] [address] documented as of this encounter
--- OUTSIDE RECORDS SUMMARY | 2022-02-23 01:42 | XMS_ITS | Encounter Summary ---
:1960 Author Organization [facility] [place] [address] Care Team Providers Name Role Phone Corrie Pacheco APRN Primary Care Provider Reason for Referral Diagnostic Test (Routine) - Closed Specialty Diagnoses / Procedures Referred By Contact Refer red To Contact Radiology Diagnoses Malignant neoplasm of head of pancreas Gigi Sosa MD [facility] Rad [facility] Scan Procedures CT Chest Abdomen Pelvis w Contrast (Generic) [facility] [place] [address] [place] [address] Referral ID Status Reason Start Date Expiration Date Visits V isits Requested Authorized [id number] Closed Specialty 10/31/2019 12/29/2019 1 1 Service Requested Reason for Visit Reason Comments Follow-up Encounter Details Date Type Department Care Team Description 07/14/2019 Office Visit Hematology and Gigi Sosa Maligna nt neoplasm of Oncology at [facility] head of pancreas [facility] [place], [place] ONCOLOGY [address] [place] [address] Social History Tobacco Use Types Packs/Day Years [...] place to sleep or slept in a long term (including now)? Sex Assigned at Date Recorded Male 07/24/2020 7:58 PM EDT documented as of this encounter Last Filed Vital Signs Vital Sign Reading Time Taken Comments Blood Pressure 111/61 07/14/2019 1:18 PM EDT Pulse 60 07/14/2019 1:18 PM EDT Temperature 36.5 ??C (97.7 ??F) 07/14/2019 1:18 PM EDT Respiratory Rate 18 07/14/2019 1:18 PM EDT Oxygen Saturation 97% 07/14/2019 1:18 PM EDT Inhaled Oxygen Concentration - - Weight 80.1 kg (176 lb 9.6 oz) 07/14/2019 1:18 PM EDT Height 172.4 cm (5' 7.87) 07/14/2019 1:18 PM EDT Body Mass Index 26.95 07/14/2019 1:18 PM EDT documented in this encounter Progress Notes Gigi Sosa MD - 07/14/2019 1:30 PM EDT Subjective: Patient ID: Jaciel [...] and may- catenin (negative for nuclear staining). [id number] is retained in lesional cells. ??Overall, the [...] 12 cycles, completed 11/24/[address] c/a/p 05/19/19 - IMPRESSION 1. Post Whipple without evidence of local recurrence or regional or distant metastases. 2. New hazy nodular opacities within the superior segment of the LEFT lower lobe could represent anearly pneumonia or inflammation from aspiration. Metastases are less likely. CT chest 07/14/19 - IMPRESSION Resolution of probable LEFT lower lobe pneumonia No metastases identified HPI Mr. Combs is seen in f/u of pancreatic cancer. The history is summarized above. On 05/05/18 he underwent a robotic Whipple procedure by Dr. Collazo. The path report is above. On 06/25/18, he began adjuvant chemotherapy with Folfirinox. He completed the planned 12 cycles of therapy on 11/24/18. On presentation today, he is accompanied by his Demi. He continues to feel very well. Shortly after our last visit, he developed URI symptoms which have resolved. He is eating well and has gained a couple more pounds. No fevers or chills. His energy level is good and he continues to work. His bowels are regular. He has not particular complaints or concerns. 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 There is no guarding. Musculoskeletal: General: No edema. Lymphadenopathy: He has [...] (non-fasting) Result Value Ref Range Glucose Lvl 97 65 - 199 mg/dL BUN 15 10 - 20 mg/dL Creatinine 0.97 0.80 - 1.50 mg/dL Sodium 139 135 - 145 mmol/L Potassium 4.7 3.5 - 5.0 mmol/L Chloride 101 98 - 107 mmol/L CO2 28 22 - 31 mmol/L Anion Gap 10 5 - 15 mmol/L Calcium 9.5 8.5 - 10.5 mg/dL Total Protein 7.5 6.1 - 8.0 gm/dL Albumin 4.3 3.2 - 5.2 gm/dL AST 29 0 - 39 unit/L ALT 32 0 - 55 unit/L Alk Phos 77 40 - 130 unit/L Total Bilirubin 0.3 0.2 - 1.3 mg/dL eGFR 85 >=60 mL/min/1.73 m?? eGFR 99 >=60 mL/min/1.73 m?? Hemogram Result Value Ref Range WBC 5.0 4.0 - 9.5 x10(3)/mcL RBC 4.46 (L) 4.58 - 5.54 x10(6)/mcL Hemoglobin 13.7 13.7 - 16.5 gm/dL Hematocrit 42.4 40.5 - 48.5 % MCV 95.1 (H) 82.9 - 93.1 fL MCH 30.7 27.5 - 32.1 pg MCHC 32.3 32.0 - 35.7 gm/dL Platelets 175 145 - 357 x10(3)/mcL RDWSD 46.2 (H) 36.0 - 45.0 fL RDWCV 13.2 11.4 - 13.8 % MPV 9.4 7.6 - 12.9 fL nRBC % Auto 0.0 % nRBC Abs Auto 0.000 0.000 - 0.000 x10(3)/mcL Differential, Automated Result Value Ref Range Neutrophils % 53.4 % Neutr Abs (ANC) 2.70 1.70 - 6.10 x10(3)/mcL Lymphocytes % 31.3 % Lymphocytes Abs 1.6 0.9 - 3.2 x10(3)/mcL Monocytes % 13.1 % Monocyte Abs 0.7 0.3 - 0.9 x10(3)/mcL Eosinophils % 1.2 % Eosinophils Abs 0.1 0.0 - 0.4 x10(3)/mcL Basophils % 0.8 % Basophils Abs 0.0 0.0 - 0.1 x10(3)/mcL Immature Gran % 0.20 % Magnolia Gran Abs 0.01 0.00 - 0.04 x10(3)/mcL CA 19-9 07/14/19 <2 05/19/19 <2 01/02/19 <2 06/06/18 3 04/15/[address] personally reviewed, report above Assessment and Plan: Mr. Combs is a 58 yo male seen in f/u of pancreatic cancer. He presented in late 03/[address] A CT was done at [facility] and showed intra and extrahepatic biliary ductal dilatation and question of a mass in the duodenum or head of the pancreas. He was referred to GI at [facility] and on 04/04/18 underwent an ERCP with [...] completed the planned 12 cycles on 11/24/18. Clinically, he is doing very well. He had a CT done on 05/19/19. This did not show any definite evidence of disease recurrence. There was a hazy opacity in the left lung which looked more consistent with an inflammatory/infectious process. Metastatic disease was considered to be unlikely. The CT chest was repeated today, 07/14/19. The opacity has cleared and there is no evidence of metastatic disease. I will plan to see him in about 4 months with a scan which will 6 months from the last CT c/a/p. documented in this encounter Plan of Treatment Upcoming Encounters Date Type Specialty Care Team Description 02/23/2022 Office Visit Hematology and Oncology Gigi Sosa MD [facility] [place] [address] [address] [place] [address] documented as of this encounter Results CT Chest Abdomen Pelvis w Contrast (Generic) (11/10/2019 8:13 AM EDT) Anatomical Region Laterality Modality Abdomen, Pelvis Computed Tomography Specimen (Source) Anatomical Location Collection Method / Collectio n Time Received Time / Laterality Volume Impressions 11/10/2019 11:20 AM EDT Status post Whipple without evidence of local recurrence or distant metastases. Preliminary report signed by: Wes Tse ent at 11/10/2019 10:38 AM I have personally reviewed the image(s) and the resident's interpretation and agree with the findings, Andrez Thomas s at 11/10/2019 11:20 AM Thank you for letting us participate in the care of this patient. For questions regarding this report, please contact e number below. ? Narrative 11/10/2019 11:20 AM EDT EXAMINATION: CT CHEST ABDOMEN PELVIS W CONTRAST (GENERIC) CLINICAL HISTORY: Pancreatic cancer, bhupinder veillance pancreatic cancer s/p whipple and post-o perative chemotherapy TECHNIQUE: Helical CT of the chest, abdo men, and pelvis was performed following the intravenous administration of contra st. Administered 90.0 ml of OMNIPAQUE 350.00 mg/ml. Oral contrast was administ ered. COMPARISON: CT from 07/14/2019, 05/19/2019 . FINDINGS: Chest: Lungs and large airways: Normal. Pleura: No effusion. Heart/vasculature: Normal. Lymph nodes: No enlarged lymph nodes. Mediastinum and karen: Normal. Abdomen/pelvis: Liver: Normal size and attenuation witho ut lesions. Bile ducts: Nondilated. Gallbladder: Surgically absent. Pancreas: Status post posterior carpal p rocedure. No mass in the pancreatic bed. The remnant pancreas is normal in appear ance with no ductal dilation. Spleen: Normal. Adrenals: Normal. Kidneys: Unchanged subcentimeter hypoden se lesion is in the right inferior pole, most likely a cyst. No hydronephrosis or renal calculi. Symmetric nephrograms. Urinary Bladder: Normal. Vasculature: No aneurysm. Patent portal vein. Lymph Nodes: ??No enlarged lymph nodes. Bowel: Post Whipple procedure changes. N o dilated small or large bowel. Scattered colonic diverticula. Peritoneum and mesentery: No ascites, fr ee air, or loculated fluid collection. No mesenteric inflammation. Abdominal wall: Unchanged small area of diastases versus wide necked ventral hernia in the midline lower abdomen. Reproductive organs: Unchanged prominenc e of the prostate which indents the posterior bladder. Osseous structures: No suspicious lesion s. Procedure Note Andrez Stallworth MD - 11/10/2019Form atting of this note might be different from the original. EXAMINATION: CT CHEST ABDOMEN PELVIS W C ONTRAST (GENERIC) CLINICAL HISTORY: Pancreatic cancer, bhupinder veillance pancreatic cancer s/p whipple and post-o perative chemotherapy TECHNIQUE: Helical CT of the chest, abdo men, and pelvis was performed following the intravenous administration of contra st. Administered 90.0 ml of OMNIPAQUE 350.00 mg/ml. Oral contrast was administ ered. COMPARISON: CT from 07/14/2019, 05/19/2019 . FINDINGS: Chest: Lungs and large airways: Normal. Pleura: No effusion. Heart/vasculature: Normal. Lymph nodes: No enlarged lymph nodes. Mediastinum and karen: Normal. Abdomen/pelvis: Liver: Normal size and attenuation witho ut lesions. Bile ducts: Nondilated. Gallbladder: Surgically absent. Pancreas: Status post posterior carpal p rocedure. No mass in the pancreatic bed. The remnant pancreas is normal in appear ance with no ductal dilation. Spleen: Normal. Adrenals: Normal. Kidneys: Unchanged subcentimeter hypoden se lesion is in the right inferior pole, most likely a cyst. No hydronephrosis or renal calculi. Symmetric nephrograms. Urinary Bladder: Normal. Vasculature: No aneurysm. Patent portal vein. Lymph Nodes: No enlarged lymph nodes. Bowel: Post Whipple procedure changes. N o dilated small or large bowel. Scattered colonic diverticula. Peritoneum and mesentery: No ascites, fr ee air, or loculated fluid collection. No mesenteric inflammation. Abdominal wall: Unchanged small area of diastases versus wide necked ventral hernia in the midline lower abdomen. Reproductive organs: Unchanged prominenc e of the prostate which indents the posterior bladder. Osseous structures: No suspicious lesion s. IMPRESSION Status post Whipple without evidence of local recurrence or distant metastases. Preliminary report signed by: Wes christianson at 11/10/2019 10:38 AM I have personally reviewed the image(s) and the resident's interpretation and agree with the findings, Andrez Thomas s at 11/10/2019 11:20 AM Thank you for letting us participate in the care of this patient. For questions regarding this report, please contact e number below. Gigi Sosa MD IMG CT ORDERABLES Carbohydrate Antigen 19-9 (11/10/2019 7:10 AM EDT) athologist Signature CA 19-9 <2.0 <=35.0 u/ml [facility] Specimen Anatomical Collection Method Collection Time Receive d Time (Source) Location / / Volume Laterality Blood specimen 11/10/2019 7:10 AM 020 7:19 (specimen) EDT AM EDT Resulting Agency Comment Spec In Lab Gigi Sosa MD CHEMISTRY ORDERABLES Performing Organization Address City/State/[place] [address] (ABNORMAL) Comprehensive metabolic panel (non-fasting) (11/10/2019 7:10 AM EDT) athologist Signature Glucose Lvl 88 65 - 199 [facility] mg/dL [facility] Comment: Diabetes: >=200 mg/dL plus symp toms BUN 22 (H) 10 - 20 mg/dL [facility] Creatinine 0.93 0.80 - 1.50 mg/dL [facility] Sodium 142 135 - 145 mmol/L [facility] Potassium 4.8 3.5 - 5.0 mmol/L [facility] Comment: Please note: ??Patients with WBC >100,00 0 may have falsely elevated Potassium levels. ??For accurate Potassium quantif ication in these patients send serum separator tube (gold top) for subsequent determinations. ??Contact the Clinical Chemistry Laboratory if there are any qu estions. Chloride 103 98 - 107 mmol/L [facility] CO2 29 22 - 31 mmol/L [facility] Anion Gap 10 5 - 15 mmol/L [facility] Calcium 9.5 8.5 - 10.5 mg/dL [facility] Total Protein 7.6 6.1 - 8.0 gm/dL [facility] Albumin 4.5 3.2 - 5.2 gm/dL [facility] AST 20 0 - 39 unit/L [facility] ALT 27 0 - 55 unit/L [facility] Alk Phos 62 40 - 130 unit/L [facility] Total Bilirubin 0.3 0.2 - 1.3 mg/dL [facility] Estimated GFR 90 >=60 mL/min/1.73 m?? [facility] Comment: The eGFR was calculated using the CKD-EP I equation. As with all creatinine based estimates of kidney function, eGFR values calculated with the CKD-EPI equation are not accurate in patients wi th acute kidney failure, extremes of body mass or the acutely ill. [email or web address]Enkf eGFR 104 >=60 mL/min/1.73 m?? [facility] Comment: The eGFR was calculated using the CKD-EP I equation. As with all creatinine based estimates of kidney function, eGFR values calculated with the CKD-EPI equation are not accurate in patients wi th acute kidney failure, extremes of body mass or the acutely ill. [email or web address] Specimen Anatomical Collection Method Collection Time Receive d Time (Source) Location / / Volume Laterality Blood specimen 11/10/2019 7:10 AM 020 7:19 (specimen) EDT AM EDT Resulting Agency Comment Spec In Lab Gigi Sosa MD CHEMISTRY ORDERABLES Performing Organization Address City/State/[place] [address] documented in this encounter Visit Diagnoses Diagnosis Malignant neoplasm of head of pancreas Malignant neoplasm of head of pancreas documented in this encounter Care Teams Inspector Type Relationship Specialty Start Date End Date Corrie Pacheco APRN PCP - General Family Medicine 04/04/18 [place] [address] documented as of this encounter
--- OUTSIDE RECORDS SUMMARY | 2022-02-23 01:42 | XMS_ITS | Encounter Summary ---
:1960 Author Organization [facility] [place] [address] Care Team Providers Name Role Phone Corrie Pacheco APRN Primary Care Provider Reason for Visit Diagnostic Test (Routine) - Closed Specialty Diagnoses / Procedures Referred By Contact Refer red To Contact Radiology Diagnoses Malignant neoplasm of head of pancreas Ggii Sosa MD [facility] Rad Nuclear Med Procedures NM PET CT Skull Base to Mid-thigh [facility] [place] [address] [place] [address] Referral ID Status Reason Start Date Expiration Date Visits V isits Requested Authorized [id number] Closed Specialty 08/12/2020 10/10/2020 1 1 Service Requested Encounter Details Date Type Department Care Team Description 08/23/2020 Hospital Encounter Nuclear Medicine at Gigi Sosa Mary Hitchcock MD [facility] [place] [address] ONCOLOGY [phone] [place], [place] [address] (Wo rk) Social History Tobacco Use Types [...] place to sleep or slept in a halfway (including now)? Sex Assigned at Date Recorded [...] Gigi Sosa MD [facility] [place] [address] Ebonie Gordon APRN [address] [place] [address] DR MEDICAL ONCOLOGY [place], [place] [id number] documented as of this encounter Procedures Procedure Name Priority Date/Time Associated Diagnosis Comme nts NM PET CT SKULL Routine 08/23/2020 9:24 AM Malignant neoplasm Results for this BASE TO MID-THIGH EDT of head of pancreas pro cedure are in ([facility]) the results section. POCT GLUCOSE Routine 08/23/2020 8:02 AM Results f or this EDT procedure are i n the results section. documented in this encounter Results POCT Glucose (08/23/2020 8:02 AM EDT) athologist Signature POC Glucose 80 65 - 199 [facility] mg/dL [facility] Comment: Supplemental ranges: <140 mg/dL before meals <180 mg/dL all other times of the day Specimen Anatomical Collection Method Collection Time Receive d Time (Source) Location / / Volume Laterality Blood specimen 08/23/2020 8:02 AM 021 8:02 (specimen) EDT AM EDT Gigi Sosa MD POINT OF CARE TEST ORDERABLE S Performing Organization Address City/State/ZIP [place] [address] documented in this encounter Visit Diagnoses Not on filedocumented in this encounter Care Teams Drier Belt Conveyor Relationship Specialty Start Date End Date Corrie Pacheco APRN PCP - General Family Medicine 04/04/[address] [place], [place] [id number] documented as of this encounter
--- OUTSIDE RECORDS SUMMARY | 2022-02-23 01:42 | XMS_ITS | Encounter Summary ---
:1960 Author Organization [facility] [place] [address] Care Team Providers Name Role Phone Corrie Pacheco APRN Primary Care Provider Encounter Details Date Type Department Care Team Description 11/10/2019 Hospital Encounter Hematology and Maligna nt neoplasm of Oncology at [facility] [place] [place] [address] Social History Tobacco Use Types Packs/Day [...] place to sleep or slept in a custodial (including now)? Sex Assigned at Date Recorded [...] Visit Hematology and Oncology Gigi Sosa MD [facility] [place] [address] Ebonie Gordon, [address] [address] documented as of this encounter Procedures Procedure Name Priority Date/Time Associated Comments Diagnosis HEMOGRAM Routine 11/10/2019 7:10 AM Malignant neoplasm Res ults for this EDT of head of pancreas procedur e are in the results section. DIFFERENTIAL, Routine 11/10/2019 7:10 AM Malignant neoplasm Re sults for this AUTOMATED EDT of head of pancreas procedur e are in the results section. HC VENIPUNCTURE Routine 11/10/2019 7:10 AM Malignant neoplasm Results for this EDT of head of pancreas procedur e are in the results section. HC CBC,PLT & AUTO DIFF Routine 11/10/2019 7:10 AM Malignant ne oplasm EDT of head of pancreas COMPREHENSIVE Routine 11/10/2019 7:10 AM Malignant neoplasm Re sults for this METABOLIC PANEL EDT of head of pancreas mekhi morfin are in (NON-FASTING) the results section. documented in this encounter Results Differential, Automated (11/10/2019 7:10 AM EDT) P athologist Signature Neutrophils % 57.6 % [facility] Neutr Abs (ANC) 3.56 1.70 - [facility] 6.10 [facility] x10(3)/[facility] LABORATORY Lymphocytes % 29.7 % [facility] Lymphocytes Abs 1.8 0.9 - 3.2 [facility] x10(3)/[facility] LABORATORY Monocytes % 9.7 % [facility] Monocyte Abs 0.6 0.3 - 0.9 [facility] x10(3)/[facility] LABORATORY Eosinophils % 1.5 % [facility] Eosinophils Abs 0.1 0.0 - 0.4 [facility] x10(3)/[facility] LABORATORY Basophils % 1.0 % [facility] Basophils Abs 0.1 0.0 - 0.1 [facility] x10(3)/[facility] LABORATORY Immature Gran % 0.50 % [facility] Comment: Immature granulocytes(IG's)percentage an d absolute count will include metamyelocytes, myelocytes, and promyelo cytes. Blood smears from CBCs yielding IG's will be scanned manually for concor dance. If this scan disagrees with the automated IG or if promyelocytes are not ed, a manual differential will be performed. [place] Gran Abs 0.03 0.00 - 0.04 x10(3)/[facility] LABORATORY Specimen Anatomical Collection Method Collection Time Receive d Time (Source) Location / / Volume Laterality Blood specimen 11/10/2019 7:10 AM 020 7:19 (specimen) EDT AM EDT Resulting Agency Comment Spec In Lab Gigi Sosa MD HEMATOLOGY ORDERABLES Performing Organization Address City/State/[place] [address] (ABNORMAL) Hemogram (11/10/2019 7:10 AM EDT) Analysis Performed At Patho logist Time Signature WBC 6.2 4.0 - 9.5 [facility] x10(3)/[facility] LABORATORY RBC 4.89 4.58 - [place] 5.54 [facility] x10(6)/[facility] LABORATORY Hemoglobin 15.1 13.7 - [facility] gm/dL [facility]ORY Hematocrit 45.6 40.5 - [facility] 48.5 % [facility] MCV 93.3 (H) 82.9 - [facility] 93.1 [facility] LABORATORY MCH 30.9 27.5 - [facility] 32.1 pg [facility] MCHC 33.1 32.0 - [facility] 35.7 gm/dL [facility] Platelets 188 145 - 357 [facility] x10(3)/[facility] LABORATORY RDWSD 44.3 36.0 - [facility] 45.0 [facility] LABORATORY RDWCV 13.0 11.4 - [facility] 13.8 % [facility] LABORATORY MPV 9.3 7.6 - 12.9 [facility] LABORATORY nRBC % Auto 0.0 % [facility] nRBC Abs Auto 0.000 0.000 - [facility] 0.000 [facility] x10(3)/[facility] LABORATORY Specimen Anatomical Collection Method Collection Time Receive d Time (Source) Location / / Volume Laterality Blood specimen 11/10/2019 7:10 AM 020 7:19 (specimen) EDT AM EDT Resulting Agency Comment Spec In Lab Gigi Sosa MD HEMATOLOGY ORDERABLES Performing Organization Address City/State/ZIP Code Phon [place] [address] (ABNORMAL) Comprehensive metabolic panel (non-fasting) (11/10/2019 7:10 AM EDT) P athologist Signature Glucose Lvl 88 65 - 199 [facility] mg/dL [facility] Comment: Diabetes: >=200 mg/dL plus symp toms BUN 22 (H) 10 - 20 mg/dL [facility] Creatinine 0.93 0.80 - 1.50 mg/dL [facility] Sodium 142 135 - 145 mmol/L [facility] Potassium 4.8 3.5 - 5.0 mmol/L [facility] Comment: Please note: ??Patients with WBC >100,00 0 may have falsely elevated Potassium levels. ??For accurate Potassium quantif ication in these patients send serum separator tube (gold top) for subsequent determinations. ??Contact the Clinical Chemistry Laboratory if there are any qu estions. Chloride 103 98 - 107 mmol/L [facility] CO2 29 22 - 31 mmol/L [facility] Anion Gap 10 5 - 15 mmol/L [facility] Calcium 9.5 8.5 - 10.5 mg/dL [facility] Total Protein 7.6 6.1 - 8.0 gm/dL [facility] Albumin 4.5 3.2 - 5.2 gm/dL [facility] AST 20 0 - 39 unit/L [facility] ALT 27 0 - 55 unit/L [facility] Alk Phos 62 40 - 130 unit/L [facility] Total Bilirubin 0.3 0.2 - 1.3 mg/dL [facility] Estimated GFR 90 >=60 mL/min/1.73 m?? [facility] Comment: The eGFR was calculated using the CKD-EP I equation. As with all creatinine based estimates of kidney function, eGFR values calculated with the CKD-EPI equation are not accurate in patients wi th acute kidney failure, extremes of body mass or the acutely ill. [email or web address] eGFR 104 >=60 mL/min/1.73 m?? [facility] Comment: The eGFR was calculated using the CKD-EP I equation. As with all creatinine based estimates of kidney function, eGFR values calculated with the CKD-EPI equation are not accurate in patients wi th acute kidney failure, extremes of body mass or the acutely ill. [email or web address] Specimen Anatomical Collection Method Collection Time Receive d Time (Source) Location / / Volume Laterality Blood specimen 11/10/2019 7:10 AM 020 7:19 (specimen) EDT AM EDT Resulting Agency Comment Spec In Lab Gigi Sosa MD CHEMISTRY ORDERABLES Performing Organization Address City/[facility]/[place] [address] Carbohydrate Antigen 19-9 (11/10/2019 7:10 AM EDT) P athologist Signature CA 19-9 <2.0 <=35.0 u/ml [facility] Specimen Anatomical Collection Method Collection Time Receive d Time (Source) Location / / Volume Laterality Blood specimen 11/10/2019 7:10 AM 020 7:19 (specimen) EDT AM EDT Resulting Agency Comment Spec In Lab Gigi Sosa MD CHEMISTRY ORDERABLES Performing Organization Address City/[facility]/[place] [address] documented in this encounter Visit Diagnoses Diagnosis Malignant neoplasm of head of pancreas documented in this encounter Care Teams Dry Color Tester Relationship Specialty Start Date End Date Corrie Pacheco APRN PCP - General Family Medicine 04/04/18 [place] [address] documented as of this encounter
--- OUTSIDE RECORDS SUMMARY | 2022-02-23 01:42 | XMS_ITS | Encounter Summary ---
:1960 [place] [address] Care Team Providers Name Role Phone Corrie Pacheco APRN Primary Care Provider Encounter Details Date Type Department Care Team Description 08/09/2020 Ancillary Procedure Radiology Library at [facility], Justen Solis, [facility] [place] [address] ONCOLOGY [phone] [place], [place] [address] (Wo rk) Social History Tobacco [...] place to sleep or slept in a usp (including now)? Sex Assigned at Date Recorded Male 07/24/2020 7:58 PM EDT documented as of this encounter Plan of Treatment Upcoming Encounters Date Type Specialty Care Team Description 02/23/2022 Office Visit Hematology and Oncology Gigi Sosa MD [facility] [place] [address] [address] [place] [address] documented as of this encounter Procedures Procedure Name Priority Date/Time Associated Diagnosis Comme nts FILM LIBRARY Routine 08/09/2020 10:19 PM Results for this STORAGE ONLY CT EDT procedure ar e in CHEST ABDOMEN the results PELVIS section. documented in this encounter Results Film Library- Storage Only CT Chest Abdomen Pelvis (08/09/2020 10:19 PM EDT) Specimen (Source) Anatomical Location Collection Method / Collectio n Time Received Time / Laterality Volume Narrative [facility] - 08/09/2020 10:19 PM EDT This exam is auto-finalizing. It's purpo se is for storage only. Gigi Sosa MD [facility] FILM LIBRARY ORDERABLES Performing Organization Address City/State/ZIP Code Phon e Number [facility] [place], [place] documented in this encounter Visit Diagnoses Not on filedocumented in this encounter Care Teams [employer] Executive Director Relationship Specialty Start Date End Date Corrie Pacheco APRN PCP - General Family Medicine 04/04/18 [address] [place] [address] documented as of this encounter
--- OUTSIDE RECORDS SUMMARY | 2022-02-23 01:42 | XMS_ITS | Encounter Summary ---
:1960 Author Organization [facility] [place] [address] Care Team Providers Name Role Phone Corrie Pacheco APRN Primary Care Provider Reason for Referral Diagnostic Test (Routine) - Closed Specialty Diagnoses / Procedures Referred By Contact Refer red To Contact Radiology Diagnoses Malignant neoplasm of head of pancreas Giig Sosa MD [facility] Rad Ct Scan Procedures CT Chest Abdomen Pelvis w Contrast (Generic) [facility] [place] [address] [place] [address] Referral ID Status Reason Start Date Expiration Date Visits V isits Requested Authorized [id number] Closed Specialty 04/28/2019 01/02/2020 1 1 Service Requested Reason for Visit Diagnostic Test (Routine) - Closed Specialty Diagnoses / Procedures Referred By Contact Refer red To Contact Radiology Diagnoses Malignant neoplasm of head of pancreas Gigi Sosa MD [facility] Rad Ct Scan Procedures CT Chest Abdomen Pelvis w Contrast (Generic) [place] [address] [place] [address] Referral ID Status Reason Start Date Expiration Date Visits V isits Requested Authorized [id number] Closed Specialty 04/28/2019 01/02/2020 1 1 Service Requested Encounter Details Date Type Department Care Team Description 05/19/[address] Scan at [facility] Gigi Sosa Malignant neoplasm [facility] MD Will of head of pancreas [address] [place], [place] [address] ONCOLOGY [phone] [place] [address] Social History Tobacco Use Types Packs/Day Years [...] Sosa MD [facility] [place] [address] Ebonie Gordon, [address] [place] [address] documented as of this encounter Procedures Procedure Name Priority Date/Time Associated Diagnosis Comme nts CT CHEST ABDOMEN Routine 05/19/2019 8:35 AM Malignant neoplasm Results for this PELVIS W CONTRAST EST of head of pancreas pro cedure are in (GENERIC) the results section. documented in this encounter Results CT Chest Abdomen Pelvis w Contrast (Generic) (05/19/2019 8:35 AM EST) Anatomical Region Laterality Modality Abdomen, Pelvis Computed Tomography Specimen (Source) Anatomical Location Collection Method / Collectio n Time Received Time / Laterality Volume Impressions 05/19/2019 10:32 AM EST 1. ??Post Whipple without evidence of local recurrence or regional or distant metastases. 2. ??New hazy nodular opacities within t he superior segment of the LEFT lower lobe could represent an early pneumonia or inflammation from aspiration. Metastases are less likely. Thank you for letting us participate in the care of this patient. For questions regarding this report, please contact e number below. ? Narrative 05/19/2019 10:32 AM EST EXAMINATION: CT CHEST ABDOMEN PELVIS W CONTRAST (GENERIC) CLINICAL HISTORY: pancreatic cancer s/p whipple procedure and post-operative chemotherapy TECHNIQUE: Helical CT of the chest, abdo men, and pelvis was performed following the intravenous administration of contra st. Administered 87.0 ml of OMNIPAQUE 350.00 mg/ml. Oral contrast was administ ered. COMPARISON: Most recent comparison to CT chest, abdomen, pelvis on 10/07/2018 with additional priors for comparison as repo rted. FINDINGS: Chest: Lungs and large airways: There is a new hazy reticular nodular area within the superior segment of the LEFT lower lobe (series 4 image 40) which could represent an early pneumonia or inflamma tion from aspiration. Metastases are less likely. Pleura: No effusion. Heart/vasculature: Normal. Lymph nodes: No enlarged lymph nodes. Mediastinum and karen: Normal. Abdomen/pelvis: Liver: Normal size and attenuation witho ut lesions. Bile ducts: Nondilated. Gallbladder: Post cholecystectomy. Pancreas: Post Whipple procedure. No mas ses seen within the remnant pancreatic body/tail. The remnant main pancreatic d uct is not dilated. No nodular mass seen within the surgical bed to suggest local recurrence at this time. Spleen: Normal. Adrenals: Normal. Kidneys: Normal. Urinary Bladder: Normal. Vasculature: The abdominal aorta is tristan neurysmal. The portal vein is patent. The IVC is normal. Lymph Nodes: ??No enlarged lymph nodes. Bowel: Post Whipple procedure. No dilate d small or large bowel are present. There are scattered diverticula within t he descending and sigmoid colon without evidence of diverticulitis. Peritoneum and mesentery: No ascites, fr ee air, or loculated fluid collection. No mesenteric inflammation. Abdominal wall: There is a small area of rectus diastases versus incisional hernia within the infrarenal area. Altho ugh colon extends into this, it is wid[place] and there is no evidence of st rangulation or obstruction. Reproductive organs: Normal. Osseous structures: No suspicious lesion s. Procedure Note Guanaco Yadav MD - 05/19/2019Form atting of this note might be different from the original. EXAMINATION: CT CHEST ABDOMEN PELVIS W C ONTRAST (GENERIC) CLINICAL HISTORY: pancreatic cancer s/p whipple procedure and post-operative chemotherapy TECHNIQUE: Helical CT of the chest, abdo men, and pelvis was performed following the intravenous administration of contra st. Administered 87.0 ml of OMNIPAQUE 350.00 mg/ml. Oral contrast was administ ered. COMPARISON: Most recent comparison to CT chest, abdomen, pelvis on 10/07/2018 with additional priors for comparison as repo rted. FINDINGS: Chest: Lungs and large airways: There is a new hazy reticular nodular area within the superior segment of the LEFT lower lobe (series 4 image 40) which could represent an early pneumonia or inflamma tion from aspiration. Metastases are less likely. Pleura: No effusion. Heart/vasculature: Normal. Lymph nodes: No enlarged lymph nodes. Mediastinum and karen: Normal. Abdomen/pelvis: Liver: Normal size and attenuation witho ut lesions. Bile ducts: Nondilated. Gallbladder: Post cholecystectomy. Pancreas: Post Whipple procedure. No mas ses seen within the remnant pancreatic body/tail. The remnant main pancreatic d uct is not dilated. No nodular mass seen within the surgical bed to suggest local recurrence at this time. Spleen: Normal. Adrenals: Normal. Kidneys: Normal. Urinary Bladder: Normal. Vasculature: The abdominal aorta is tristan neurysmal. The portal vein is patent. The IVC is normal. Lymph Nodes: No enlarged lymph nodes. Bowel: Post Whipple procedure. No dilate d small or large bowel are present. There are scattered diverticula within t he descending and sigmoid colon without evidence of diverticulitis. Peritoneum and mesentery: No ascites, fr ee air, or loculated fluid collection. No mesenteric inflammation. Abdominal wall: There is a small area of rectus diastases versus incisional hernia within the infrarenal area. Altho ugh colon extends into this, it is wid[place] and there is no evidence of st rangulation or obstruction. Reproductive organs: Normal. Osseous structures: No suspicious lesion s. IMPRESSION 1. Post Whipple without evidence of loca l recurrence or regional or distant metastases. 2. New hazy nodular opacities within the superior segment of the LEFT lower lobe could represent an early pneumonia or inflammation from aspiration. Metastases are less likely. Thank you for letting us participate in the care of this patient. For questions regarding this report, please contact th e number below. Gigi Sosa MD IMG CT ORDERABLES documented in this encounter Visit Diagnoses Diagnosis Malignant neoplasm of head of pancreas documented in this encounter Administered Medications Inactive Administered Medications - up to 3 most recent administrations Medication Order MAR Action Action Date Dose Rate Site iohexol (OMNIPAQUE) 350 mg/mL Given 05/19/2019 8:33 AM EST 87 mL s solution 0-200 mL 0-200 mL, Intravenous, ONCE PRN, 1 dose, Starting on Sat05/19/19 at 0817, Until Sat05/19/19 at 0833, Per Protocol, Warning Vesicant/Irritant Medication , Radiology Contrast, Routine iohexol (OMNIPAQUE) 350 mg/mL solution 0-50 Given 05/19/2019 8:33 AM EST 50 mLs mL 0-50 mL, Oral, ONCE PRN, 1 dose, Starting on Sat05/19/19 at 0817, Until Sat05/19/19 at 0833, Per Protocol, Warning Vesicant/Irritant Medication , Radiology Contrast, Routine documented in this encounter Care Teams Picker Relationship Specialty Start Date End Date Corrie Pacheco APRN PCP - General Family Medicine 04/04/18 [place] [address] documented as of this encounter
--- OUTSIDE RECORDS SUMMARY | 2022-02-23 01:42 | XMS_ITS | Encounter Summary ---
:1960 Author Organization [facility] [place] [address] Care Team Providers Name Role Phone Corrie Pacheco APRN Primary Care Provider Reason for Referral Diagnostic Test (Routine) - Closed Specialty Diagnoses / Procedures Referred By Contact Refer red To Contact Radiology Diagnoses Malignant neoplasm of head of pancreas Opacity of lung on imaging study Gigi Sosa MD [facility] Rad [facility] Scan Procedures CT Chest wo Contrast (Generic) [facility] [place] [address] [place] [address] Referral ID Status Reason Start Date Expiration Date Visits V isits Requested Authorized [id number] Closed Specialty 06/29/2019 08/27/2019 1 1 Service Requested Reason for Visit Diagnostic Test (Routine) - Closed Specialty Diagnoses / Procedures Referred By Contact Refer red To Contact Radiology Diagnoses Malignant neoplasm of head of pancreas Opacity of lung on imaging study Gigi Sosa MD [facility] Rad [facility] Scan Procedures CT Chest wo Contrast (Generic) [facility] [place] [address] [place] [address] Referral ID Status Reason Start Date Expiration Date Visits V isits Requested Authorized [id number] Closed Specialty 06/29/2019 08/27/2019 1 1 Service Requested Encounter Details Date Type Department Care Team Description 07/14/[address] [place] [facility] [place]igi Sosa Malignant neoplasm of head o f pancreas; [facility] MD Will Opacity of lung on imaging study [address] [place], [place] [address] ONCOLOGY [phone] [place] [address] Social History Tobacco Use Types Packs/Day Years [...] place to sleep or slept in a retirement (including now)? Sex Assigned at Date Recorded [...] Visit Hematology and Oncology Gigi Sosa MD [facility] [place] [address] Ebonie Gordon, [address] [place] [address] documented as of this encounter Procedures Procedure Name Priority Date/Time Associated Diagnosis Comme nts CT CHEST WO Routine 07/14/2019 10:48 AM Malignant neoplasm Re sults for this CONTRAST (GENERIC) EDT of head of pa ncreas procedure are in Opacity of lung on the resul ts imaging study section. documented in this encounter Results CT Chest wo Contrast (Generic) (07/14/2019 10:48 AM EDT) Anatomical Region Laterality Modality Chest Computed Tomography Specimen (Source) Anatomical Location Collection Method / Collectio n Time Received Time / Laterality Volume Impressions 07/14/2019 1:54 PM EDT Resolution of probable LEFT lower lobe pneumonia No metastases identified Thank you for letting us participate in the care of this patient. For questions regarding this report, please contact e number below. ? Narrative 07/14/2019 1:54 PM EDT EXAMINATION: CT CHEST WO CONTRAST (GENERIC) CLINICAL HISTORY: Pancreatic cancer, bhupinder veillance h/o pancreatic cancer s/p whipple. ??CT in 05/2019 with left lung opacity of uncertain significance. ??Re-evaluation TECHNIQUE: 3.75mm thick axial contiguous sections were obtained through the chest via helical acquisition without in travenous contrast administration. Thin-section reconstructions as well as coronal and sagittal reformatted images were generated. COMPARISON: 05/19/2019 FINDINGS: Pulmonary parenchyma: The airspace opaci ties in the superior segment of the LEFT lower lobe have resolved. There are no a bnormalities in the lung parenchyma, in particular no evidence of metastases Airways: No significant findings. Pleura: No significant findings. Lymph nodes:No significant findings. Heart, pericardium, and great vessels: N o significant findings. Other mediastinal structures: No signifi cant findings. Lower neck: No significant findings. Upper abdomen: Postoperative changes Body wall soft tissues: Bilateral gyneco mastia Skeletal structures: No significant find ings. Procedure Note Zohra Marie MD - 07/14/2019Formattin g of this note might be different from the original. EXAMINATION: CT CHEST WO CONTRAST (GENER IC) CLINICAL HISTORY: Pancreatic cancer, bhupinder veillance h/o pancreatic cancer s/p whipple. CT in 05/2019 with left lung opacity of uncertain significance. Re-evaluation TECHNIQUE: 3.75mm thick axial contiguous sections were obtained through the chest via helical acquisition without in travenous contrast administration. Thin-section reconstructions as well as coronal and sagittal reformatted images were generated. COMPARISON: 05/19/2019 FINDINGS: Pulmonary parenchyma: The airspace opaci ties in the superior segment of the LEFT lower lobe have resolved. There are no a bnormalities in the lung parenchyma, in particular no evidence of metastases Airways: No significant findings. Pleura: No significant findings. Lymph nodes:No significant findings. Heart, pericardium, and great vessels: N o significant findings. Other mediastinal structures: No signifi cant findings. Lower neck: No significant findings. Upper abdomen: Postoperative changes Body wall soft tissues: Bilateral gyneco mastia Skeletal structures: No significant find ings. IMPRESSION Resolution of probable LEFT lower lobe p neumonia No metastases identified Thank you for letting us participate in the care of this patient. For questions regarding this report, please contact e number below. Gigi Sosa MD IMG CT ORDERABLES documented in this encounter Visit Diagnoses Diagnosis Malignant neoplasm of head of pancreas Opacity of lung on imaging study documented in this encounter Care Teams Post Office Clerk Relationship Specialty Start Date End Date Corrie Pacheco APRN PCP - General Family Medicine 04/04/18 [place] [address] documented as of this encounter
--- OUTSIDE RECORDS SUMMARY | 2022-02-23 01:42 | XMS_ITS | Encounter Summary ---
:1960 Author Organization [place] [address] Care Team Providers Name Role Phone Corrie Pacheco APRN Primary Care Provider Reason for Referral Consultation (Routine) - Closed Specialty Diagnoses / Procedures Referred By Contact Refer red To Contact Radiation Oncology Diagnoses Malignant neoplasm of head of pancreas Marco Carlson MD [facility] Rad Onc Office Procedures Simulation for Radiation Therapy Planning [facility] RADIATION ONCOLOGY [address] [address] Phone: Fax: Referral ID Status Reason Start Date Expiration Date Visits V isits Requested Authorized [id number] Closed Consult, 11/15/2020 02/12/2021 5 5 Test & Treat Reason for Visit Reason Comments Radiation Consult Consultation (Routine) - Closed Specialty Diagnoses / Procedures Referred By Contact Refer red To Contact Radiation Oncology Diagnoses Local recurrence of pancreatic cancer Gigi Sosa MD Kapadia, Nirav S, MD [address] ONCOLOGY RADIATION ONCOLOGY [address] [address] Phone: Fax: Referral ID Status Reason Start Date Expiration Date Visits V isits Requested Authorized [id number] Closed Consult, 10/25/2020 10/25/2021 1 1 Test & Treat Encounter Details Date Type Department Care Team Description 11/02/2020 Office Visit Radiation Oncology at Edgardo Carlson MD Malignant neoplasm of tail of pancreas; [facility] Malignant neoplasm of head o f pancreas [facility] DR [place] RADIATION ONCOLOGY [place], [place] [address] [phone] Social History Tobacco Use Types Packs/Day Years [...] Sign Reading Time Taken Comments Blood Pressure 116/64 11/02/2020 9:00 AM EDT Pulse 60 11/02/2020 9:00 AM EDT Temperature - - Respiratory Rate 17 11/02/2020 9:00 AM EDT Oxygen Saturation 100% 11/02/2020 9:00 AM EDT Inhaled Oxygen Concentration - - Weight 85.5 kg (188 lb 9.6 oz) 11/02/2020 9:00 AM EDT Height - - Body Mass Index 28.42 10/18/2020 1:21 PM EDT documented in this encounter Progress Notes Kathy Florez RN - 11/02/2020 9:30 AM EDT RADIATION ONCOLOGY NURSING INITIAL NURSING ASSESSMENT IDENTIFICATION: Jaciel Combs is a 59 y.o. year-old male with pancreatic cancer PRESENTING SYMPTOMS/CHIEF COMPLAINT: REVIEW OF SYSTEMS: Review of Systems Constitutional: Negative. HENT: Negative. Eyes: Eye problems: prescription glasses. Respiratory: Negative. Cardiovascular: Negative. Gastrointestinal: Negative. Endocrine: Negative. Genitourinary: Negative. Musculoskeletal: Negative. Skin: Negative. Neurological: Negative. Hematological: Bruises/bleeds easily. Psychiatric/Behavioral: Negative. IN THE PAST 12 MONTHS HAVE YOU: Fallen more than one time? No Injured yourself as result of the fall? No Experienced difficulty with walking/problems with balance? No Do you use any assistive devices? No Any history of collagen vascular diseases:No Any Implanted Devices/Hardware: No If yes please put alert in ARIA patient summary Prior Radiotherapy: No Prior Chemotherapy: Yes 2018 Dr Sosa Prior Hormone Therapy: No LEARNING ASSESSMENT REVIEWED: Yes ADVANCED DIRECTIVE: Yes not in eDH PAIN ASSESSMENT: 0[] out of 10 *eD-H Adult PCS Flow Sheet if 4 or above SOCIAL ASSESSMENT: See EDH social assessment information entered. Support Systems: for 38 years Demi Combs Barriers to treatment: Patient lives in [facility] Referrals/Interventions: None at this time RADIATION SPECIFIC TEACHING: Yes [facility] Radiation Therapy and You Site specific teaching : Other: PLAN: New patient consult for Dr Carlson Marco Carlson MD - 11/02/2020 9:30 AM EDT Radiation Oncology Consultation Note: Jaciel Combs is a 59 y.o. male who is seen in consultation in the section of Radiation Oncology at [facility] at the request of Dr. 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 Patient Active Problem List Diagnosis ??? Mass of pancreas Added automatically from request for surgery [id number] ??? Severe protein-calorie malnutrition Pt had had [...] The patient continues to be completely asymptomatic. Review of Systems: Review of Systems Constitutional: Negative. HENT: Negative. Eyes: Eye problems: prescription glasses. Respiratory: Negative. Cardiovascular: Negative. Gastrointestinal: Negative. Endocrine: Negative. Genitourinary: Negative. Musculoskeletal: Negative. Skin: Negative. Neurological: Negative. Hematological: Bruises/bleeds easily. Psychiatric/Behavioral: Negative. Contraindications to Radiotherapy: NO: YES: Date, site, dose (women only) N/A Prior Radiotherapy x Past Medical History: Diagnosis Date ??? Pancreatic cancer Past Surgical History: Procedure Laterality Date ??? CHOLECYSTECTOMY ??? IR MEDIPORT PLACEMENT/EXCHANGE 06/16/2018 IR Mediport Placement / Exchange 06/16/2018 Abhijeet De La Rosa APRN [facility] RAD ??? IR MEDIPORT REMOVAL 01/13/2019 IR Mediport Removal 01/13/2019 Ezra Vela APRN [facility] RAD ??? PRO ENDOSCOPIC US EXAM, ESOPH N/A 04/04/2018 UPPER EUS- ENDOSCOPIC ULTRASOUND performed by Felipe Soto MD at [facility] ENDOSCOPY ? ? PRO ERCP BILIARY OR PANCREATIC DUCT STENT REMOVAL & EXCHANGE W/DIL&WIRE 04/16/2018 ERCP, W REMOVAL& EXCHANGE STENT, BILIARY/PANCREATIC DUCT performed by Mahamed Bro MD at [facility] ENDOSCOPY ??? PRO ERCP STENT PLACEMENT BILIARY OR PANCREATIC DUCT 04/04/2018 ERCP, W PLCMNT ENDOSCOPIC STENT BILIARY OR PANCREATIC DUCT performed by Felipe Soto MD at [facility] ENDOSCOPY ??? PRO ERCP, SPHINCTEROTOMY N/A 04/04/2018 ERCP W/SPHINCTEROTOMY/PAPILLOTOMY performed by Felipe Soto MD at [facility] ENDOSCOPY ??? PRO ERCP, W/REMOVAL STONE, ZAHIDA/PANCR DUCTS 04/16/2018 ERCP W/REMOVAL CALCULI/DEBRIS FROM BILARY/PANCREATIC DUCT(S) performed by Mahamed Bro MD at [facility] ENDOSCOPY ??? PRO ERCP,DIAGNOSTIC N/A 04/16/2018 ERCP performed by Mahamed Bro MD at [facility] ENDOSCOPY ??? PRO LAP, DIAGNOSTIC ABDOMEN N/A 04/23/2018 LAPAROSCOPY, DIAGNOSTIC, ABDOMEN (WRVU 5.14) performed by Lázaro Collazo MD at [facility] OSC ??? PRO UNLISTED PX PNCRS N/A 05/05/2018 ROBOTIC PANCREATECTOMY,WHIPPLE, PARTIAL GASTRECTOMY W/ PANCREATOJEJUNOSTOMY performed by Lázaro Collazo MD at [facility] MAIN OR Medications 11/02/20 0910 Medication Sig Taking? omeprazole (PRILOSEC) 40 mg Capsule, Delayed Release(E.C.) TAKE 1 CAPSULE BY MOUTH DAILY Patient not taking: Reported on 11/10/2019 CREON 24,000-76,000 -120,000 unit Capsule, Delayed Release(E.C.) TAKE 1 TO 2 CAPSULES BY MOUTH 3 TIMES DAILY WITH MEALS AND 1 CAPSULE WITH SNACKS. MAX 9 CAPS PER DAY. Patient not taking: Reported on 11/10/2019 loperamide (IMODIUM A-D) 2 mg Tablet Take 2 mg by mouth 4 times daily as needed for Diarrhea. Maximum 16 mg in 24 hours No Known Allergies Social History Socioeconomic History ??? Marital status: Spouse name: Demi Combs ??? Number of children: 0 ??? Years of education: 16 ??? Highest education level: None Occupational History ??? None Tobacco Use ??? Smoking status: Never Smoker ??? Smokeless tobacco: Never Used Vaping Use ??? Vaping Use: Never used Substance and Sexual Activity ??? Alcohol use: Yes Comment: 2-3X/month occasional ??? Drug use: No ??? Sexual activity: Yes Partners: Female Other Topics Concern ??? None Social History Narrative ??? None Social Determinants of Health Financial Resource Strain: [...] Activity: ??? Days of Exercise per Week: ??? Minutes of Exercise per Session: Family History Problem Relation Age of Onset ??? Cancer Father Physical Examination: Temp: -- Heart Rate: [60] Resp: [17] BP: (116)/(64) SpO2: [100 %] Heart Rate from SpO2: [...] of metastases. His CA 19-9is not expressive. Plan: Local modality for isolated pancreatic tumor bed relapse can be efficient in controlling the disease. Multiple modalities have been discussed at the time of the multidisciplinary tumor board. We elected to proceed with stereotactic body radiotherapy to the lesion with good margin reserving other modalities for possible future relapse or in case of failure. The patient will benefit from 50 [place] in 5 fractions. The possible side effects of treatment including dyspepsia, nausea, vomiting, gastritis, duodenal ulcer and rupture, weight loss, decreased appetite, bowel obstruction, as well as radiation-induced hepatitis, nephropathy, and myelopathy have all been profoundly explained to him. ? The time the consultation was 60 minutes, 45 minutes in counseling. Thank you, Dr. Gigi Sosa , for allowing us to participate in the care of this pleasant patient. documented in this encounter Plan of Treatment Upcoming Encounters Date Type Specialty Care Team Description 02/23/2022 Office Visit Hematology and Oncology Gigi Sosa MD [facility] [place] [address] Ebonie Gordon APRN [address] [place] [address] [place] [address] Scheduled Orders Name Type Priority Associated Diagnoses Order S chedule Simulation for Procedures Routine Malignant neoplasm of Orde red: 11/03/2020 Radiation Therapy head of pancreas Planning documented as of this encounter Visit Diagnoses Diagnosis Malignant neoplasm of tail of pancreas Malignant neoplasm of head of pancreas documented in this encounter Care Teams Floor Coverings Salesperson Relationship Specialty Start Date End Date Corrie Pacheco APRN PCP - General Family Medicine 04/04/[address] [place] [address] documented as of this encounter
--- OUTSIDE RECORDS SUMMARY | 2022-02-23 01:42 | XMS_ITS | Encounter Summary ---
:1960 Author Organization [facility] [place] [address] Care Team Providers Name Role Phone Corrie Pacheco APRN Primary Care Provider Encounter Details Date Type Department Care Team Description 06/03/2019 Clinical Support Hematology/Oncology Ольга Duke neoplasm of at [facility] [place] head of pancreas [address] [place] [phone] Social History Tobacco Use Types Packs/Day [...] documented as of this encounter Progress Notes Ольга Duke RD - 06/03/2019 10:00 AM EST PC to Jaciel Combs. He is s/p Ashlee on 05/05/18. And completed CCRT with Dr. Sosa. I called Jaciel to review his Ashlee labs. Labs are WNL. Follow up, prn. documented in this encounter Plan of Treatment Upcoming Encounters Date Type Specialty Care Team Description 02/23/2022 Office Visit Hematology and Oncology Gigi Sosa MD [facility] [place] [address] Ebonie Gordon APRN [address] [place] [address] DR MEDICAL ONCOLOGY [place], [place] [address] documented as of this encounter Visit Diagnoses Diagnosis Malignant neoplasm of head of pancreas documented in this encounter Care Teams Paralegal Legal Secretary Relationship Specialty Start Date End Date Corrie Pacheco APRN PCP - General Family Medicine 04/04/[address] [facility], [place] [id number] documented as of this encounter
--- OUTSIDE RECORDS SUMMARY | 2022-02-23 01:42 | XMS_ITS | Encounter Summary ---
:1960 Author Organization [facility] [place] [address] Care Team Providers Name Role Phone Corrie Pacheco APRN Primary Care Provider Encounter Details Date Type Department Care Team Description 07/28/2020 Orders Only Hematology and Ripple, Gigi H Malignmariana nt neoplasm of Oncology [place] [facility] [place] head of pancreas [facility] [place] [address] ONCOLOGY [phone] [place], [place] [address] Social History Tobacco Use Types [...] place to sleep or slept in a fci (including now)? Sex Assigned at Date Recorded Male 07/24/2020 7:58 PM EDT documented as of this encounter Plan of Treatment Upcoming Encounters Date Type Specialty Care Team Description 02/23/2022 Office Visit Hematology and Oncology Gigi Sosa MD [facility] [place] [place] [address] Ebonie Gordon APRN [address] [place] [address] DR MEDICAL ONCOLOGY [place], [place] [id number] documented as of this encounter Visit Diagnoses Diagnosis Malignant neoplasm of head of pancreas documented in this encounter Care Teams Meal Cooker Relationship Specialty Start Date End Date Corrie Pacheco APRN PCP - General Family Medicine 04/04/[address] [facility], [place] [address] documented as of this encounter
--- OUTSIDE RECORDS SUMMARY | 2022-02-23 01:42 | XMS_ITS | Encounter Summary ---
:1960 Author Organization [facility] [place] [address] Care Team Providers Name Role Phone Corrie Pacheco APRN Primary Care Provider Reason for Visit Diagnostic Test (Routine) - Closed Specialty Diagnoses / Procedures Referred By Contact Refer red To Contact Radiology Diagnoses Malignant neoplasm of head of pancreas Gigi Sosa MD [facility] Rad Nuclear Med Procedures NM PET CT Skull Base to Mid-thigh [facility] [place] [address] [place] [address] Referral ID Status Reason Start Date Expiration Date Visits V isits Requested Authorized [id number] Closed Specialty 09/30/2020 11/28/2020 1 1 Service Requested Encounter Details Date Type Department Care Team Description 10/18/2020 Hospital Encounter Nuclear Medicine at Gigi Sosa Mary Hitchcock MD [facility] [place] [address] ONCOLOGY [phone] [place], [place] [address] (Wo rk) Social History Tobacco [...] Gigi Sosa MD [facility] [place] [address] Ebonie Gordon APRN [address] [place] [address] DR MEDICAL ONCOLOGY [place], [place] [address] documented as of this encounter Procedures Procedure Name Priority Date/Time Associated Diagnosis Comme nts NM PET CT SKULL Routine 10/18/2020 10:15 AM Malignant neoplasm Results for this BASE TO MID-THIGH EDT of head of pancreas pro cedure are in ([facility]) the results section. POCT GLUCOSE Routine 10/18/2020 8:41 AM Results f or this EDT procedure are i n the results section. documented in this encounter Results POCT Glucose (10/18/2020 8:41 AM EDT) athologist Signature POC Glucose 94 65 - 199 [facility] mg/dL [facility] Comment: Supplemental ranges: <140 mg/dL before meals <180 mg/dL all other times of the day Specimen Anatomical Collection Method Collection Time Receive d Time (Source) Location / / Volume Laterality Blood 10/18/2020 8:41 AM 8:41 EDT AM EDT Gigi Sosa MD POINT OF CARE TEST ORDERABLE S Performing Organization Address City/State/[place] [address] documented in this encounter Visit Diagnoses Not on filedocumented in this encounter Care Teams Documentation Consultant Relationship Specialty Start Date End Date Corrie Pacheco APRN PCP - General Family Medicine 04/04/[address] [place], [place] [id number] documented as of this encounter
--- OUTSIDE RECORDS SUMMARY | 2022-02-23 01:42 | XMS_ITS | Encounter Summary ---
:1960 Author Organization [facility] [place] [address] Care Team Providers Name Role Phone Corrie Pacheco APRN Primary Care Provider Reason for Referral Diagnostic Test (Routine) - Closed Specialty Diagnoses / Procedures Referred By Contact Refer red To Contact Radiology Diagnoses Malignant neoplasm of head of pancreas Gigi Sosa MD [facility] Rad Nuclear Med Procedures NM PET CT Skull Base to Mid-thigh [facility] [place] [address] [place] [address] Referral ID Status Reason Start Date Expiration Date Visits V isits Requested Authorized [id number] Closed Specialty 08/12/2020 10/10/2020 1 1 Service Requested Encounter Details Date Type Department Care Team Description 08/12/2020 Office Visit Hematology/Oncology Rasheed Sosa MD [facility] [place] [address] Malignant neoplasm of at [facility] Antoinette Rodriguez APRN [address] [place] [address] [place] [address] head of pancreas [address] [place] [phone] Social History Tobacco Use Types Packs/Day [...] Sign Reading Time Taken Comments Blood Pressure 109/72 08/12/2020 10:37 AM EDT Pulse 73 08/12/2020 10:37 AM EDT Temperature 36.7 ??C (98.1 ??F) 08/12/2020 10:37 AM EDT Respiratory Rate 16 08/12/2020 10:37 AM EDT Oxygen Saturation 98% 08/12/2020 10:37 AM EDT Inhaled Oxygen Concentration - - Weight 83.9 kg (185 lb) 08/12/2020 10:37 AM EDT Height - - Body Mass Index 27.18 11/10/2019 10:16 AM EDT documented in this encounter Progress Notes Gigi Sosa MD - 08/12/2020 10:30 AM EDT Subjective: Patient ID: Jaciel [...] and may- catenin (negative for nuclear staining). [id number] is retained in lesional cells. ??Overall, the [...] measured 14 mm, suspicious for recurrent disease. [facility] second read - IMPRESSION ?? 1. Unexpected [...] follow-up for this unexpected finding is suggested. VANESSA Combs is seen in f/u of [...] generally well. He is eating well and his weight is stable. He notes that he has loose stools at time, every couple of weeks or so. When this happens, the stools can be urgent. He has some gassiness, no bloating. He has been off of creon for quitesome time and wonders if he should go back on it. He doesn't relate the episodes of loose stools to meal content. No abdominal pain. His energy level is good and he is working. He has an occasional cough. He says some people at work have been sick and have tested negative for Covid 19. No fevers or chills. 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 Vitals reviewed. Labs: WBC/ANC - 4., Hgb/Hct - 15.4/45.7, Plts - 147,000. BUN/Cr - 19/1.0. Lytes and LFTs unremarkable CA 19-9 08/09/20 <2 11/10/19 <2 07/14/19 <2 05/19/19 <2 01/02/19 <2 06/06/18 3 12/11/[address] personally reviewed, report above Assessment [...] completed the planned 12 cycles on 11/24/18. The CT done 08/09/20 shows a couple of findings of concern. There are groundglass opacities in the lungs, the appearance of which is more suggestive of inflammatory/infectious etiology although he doesn't have symptoms to suggest respiratory infection. There also is an enlarging mesenteric soft tissue nodule in the surgical bed and a second stable mesenteric soft tissue nodule. I communicated with Dr. Soto. It may be possible to reach this area by upper EUS and perform a bx but it may be difficult.Another option would be a PET scan. We talked about and I am going to order the PET scan and see himafter that. documented in this encounter Plan of Treatment Upcoming Encounters Date Type Specialty Care Team Description 02/23/2022 Office Visit Hematology and Oncology iGgi Sosa MD [facility] [place] [address] Ebonie Gordon, [address] [place] [address] documented as of this encounter Results NM PET CT Skull [...] who have questions please contact the health hemodialysis patient care specialist that requested your imaging first. ? Narrative 08/23/2020 2:36 PM EDT EXAMINATION: NM PET CT SKULL BASE TO MID-THIGH ? CLINICAL HISTORY: Pancreatic cancer, bhupinder veillance pancreatic cancer s/p whipple procedure and post-operative chemotherapy. Increasing mesenteric soft tissue nodule in surgical bed.; Note - outside CT images are in DH system TECHNIQUE: Following IV injection of 18- fprzfe-8-cbtkbrgwfuce (FDG) a standard uptake of approximately 60 [...] system TECHNIQUE: Following IV injection of 18- vwzlxd-3-vzcvhibdifga (FDG) a standard uptake of approximately 60 [...] ho have questions please contact the health hemodialysis patient care specialist that requested your imaging first. Gigi Sosa MD IMG PET ORDERABLES (ABNORMAL) Request For 2nd Read CT Chest [...] who have questions please contact the health hemodialysis patient care specialist that requested your imaging first. ? Narrative 08/11/2020 10:04 AM EDT EXAMINATION: REQUEST FOR 2ND READ CT CHEST ABDOMEN PELVIS CLINICAL HISTORY: pancreatic cancer s/p whipple. ??Outside Ct read - new pulmonary opacities, increased soft tiss ue mass surgical bed, question disease recurrence; Sending [facility]; Da te of exam [id number]; I [...] was administered. Study performed August 09 at [facility] and submitted August 11, 2020 for reinterpretation. [...] pancreas Malignant neoplasm of head of pancreas Malignant neoplasm of head of pancreas documented in this encounter Care Teams Ip Architect Relationship Specialty Start Date End Date Corrie Pacheco APRN PCP - General Family Medicine 04/04/18 [place] [address] documented as of this encounter
--- OUTSIDE RECORDS SUMMARY | 2022-02-23 01:42 | XMS_ITS | Encounter Summary ---
:1960 Author Organization [place] [address] Care Team Providers Name Role Phone Corrie Pacheco APRN Primary Care Provider Reason for Visit Reason Onset Date Comments Medication Refill Medication Refill 02/20/2019 Encounter Details Date Type Department Care Team Description 02/19/2019 Refill General Surgery at [facility]azo E xocrine pancreatic [facility] [address] [place] [address] [place] [id number] [phone] (Wo rk) Social History Tobacco Use Types [...] Visit Hematology and Oncology Gigi Sosa MD [facility] [place] [address] Ebonie Gordon APRN [address] [place] [address] DR MEDICAL ONCOLOGY [place], [place] [address] documented as of this encounter Visit Diagnoses Diagnosis Exocrine pancreatic insufficiency Other specified disease of pancreas documented in this encounter Care Teams Respite Coordinator Relationship Specialty Start Date End Date Corrie Pacheco APRN PCP - General Family Medicine 04/04/[address] [place] [place] [address] documented as of this encounter
--- OUTSIDE RECORDS SUMMARY | 2022-02-23 01:42 | XMS_ITS | Encounter Summary ---
:1960 Author Organization [facility] [place] [address] Care Team Providers Name Role Phone Corrie Pacheco APRN Primary Care Provider Reason for Referral Diagnostic Test (Routine) - Closed Specialty Diagnoses / Procedures Referred By Contact Refer red To Contact Radiology Diagnoses Malignant neoplasm of head of pancreas Gigi Sosa MD [facility] Rad Ct Scan Procedures CT Chest Abdomen Pelvis w Contrast (Generic) [facility] [place] [address] [place] [address] Referral ID Status Reason Start Date Expiration Date Visits V isits Requested Authorized [id number] Closed Specialty 10/31/2019 12/29/2019 1 1 Service Requested Reason for Visit Diagnostic Test (Routine) - Closed Specialty Diagnoses / Procedures Referred By Contact Refer red To Contact Radiology Diagnoses Malignant neoplasm of head of pancreas Gigi Sosa MD [facility] Rad Ct Scan Procedures CT Chest Abdomen Pelvis w Contrast (Generic) [facility] [place] [address] [place] [address] Referral ID Status Reason Start Date Expiration Date Visits V isits Requested Authorized [id number] Closed Specialty 10/31/2019 12/29/2019 1 1 Service Requested Encounter Details Date Type Department Care Team Description 11/10/[address] [place] [facility] Gigi Sosa Malignant neoplasm [facility] MD Will of head of pancreas [address] [place] [address] ONCOLOGY [phone] [place] [address] Social History Tobacco Use Types Packs/Day Years [...] Hematology and Oncology Gigi Sosa MD [facility] [place] [address] Ebonie Gordon, [address] [place] [address] documented as of this encounter Procedures Procedure Name Priority Date/Time Associated Diagnosis Comme nts CT CHEST ABDOMEN Routine 11/10/2019 8:13 AM Malignant neoplasm Results for this PELVIS W CONTRAST EDT of head of pancreas pro cedure [...] interpretation and agree with the findings, Andrez simmons at 11/10/2019 11:20 AM Thank you for [...] interpretation and agree with the findings, Andrez simmons at 11/10/2019 11:20 AM Thank you for [...] Action Action Date Dose Rate Site iohexoL (OMNIPAQUE) 350 mg/mL Given 11/10/2019 8:13 AM EDT 90 mL s solution 0-200 mL 0-200 mL, Intravenous, ONCE PRN, 1 dose, Starting on Sat11/10/19 at 0800, Until Sat11/10/19 at 0813, Per Protocol, Warning Vesicant/Irritant Medication , Radiology Contrast, Routine iohexoL (OMNIPAQUE) 350 mg/mL solution 0-50 Given 11/10/2019 8:13 AM EDT 50 mLs mL 0-50 mL, Oral, ONCE PRN, 1 dose, Starting on Sat11/10/19 at 0800, Until Sat11/10/19 at 0813, Per Protocol, Warning Vesicant/Irritant Medication , Radiology Contrast, Routine documented in this encounter Care Teams Dot Net Developer Relationship Specialty Start Date End Date Corrie Pacheco APRN PCP - General Family Medicine 04/04/[address] [place] [address] [place] [address] documented as of this encounter
--- OUTSIDE RECORDS SUMMARY | 2022-02-23 01:42 | XMS_ITS | Encounter Summary ---
:1960 Author Organization [facility] [place] [address] Care Team Providers Name Role Phone Corrie Pacheco APRN Primary Care Provider Encounter Details Date Type Department Care Team Description 05/19/2019 Office Visit General Surgery at [facility] rine pancreatic [facility] MD Ton [facility] [address] [place] [facility] [address] [place] [address] [phone] (Wo rk) Social History Tobacco Use Types [...] place to sleep or slept in a snf (including now)? Sex Assigned at Date Recorded Male 07/24/2020 7:58 PM EDT documented as of this encounter Last Filed Vital Signs Vital Sign Reading Time Taken Comments Blood Pressure 98/58 05/19/2019 10:29 AM EST Pulse 57 05/19/2019 10:29 AM EST Temperature 36.8 ??C (98.3 ??F) 05/19/2019 10:29 AM EST Respiratory Rate 16 05/19/2019 10:29 AM EST Oxygen Saturation 100% 05/19/2019 10:29 AM EST Inhaled Oxygen Concentration - - Weight 79.2 kg (174 lb 8 oz) 05/19/2019 10:29 AM EST Height - - Body Mass Index 26.51 05/19/2019 9:45 AM EST documented in this encounter Progress Notes Lázaro Collazo MD - 05/19/2019 10:30 AM EST Surgical Oncology Office Note Date: 05/19/2019 Primary physician: Corrie Pacheco MD ? Medical oncologist: Rasheed Sosa MD ?? Referring physician: Lazaro Soto MD Reason for evaluation: 12 mo post whipple assessment, s/p R0 robotic whipple 05/05/2018 and status post adjuvant FOLFIRINOX chemotherapy. Interval History: Mr. Combs is now a 58 year old man from [place], [place]. He presented to [facility] with painless jaundice. His total bilirubin was 6. ?? 03/31/18 CT abdomen and pelvis with oral and IV contrast ([facility]) showed a subtle mass in the HOP withproximal pancreatic and biliary duct obstruction. No SMV/portal vein, ROMA or SMA abutment. The gallbladder was markedly distended with biliary dilation. No metastases. ?? 04/04/[address] Soto -findings reviewed below: ?? There was a 21 x 21 mm mass in the lateral pancreatic head just proximal to the ampulla. It did notinvolve any blood vessels. The mass was hypoechoic and caused upstream dilitation of both the CBD and PD. Fine needle aspiration for cytology was performed- Five passes were made with the 25 gauge needle using a transduodenal approach.?? No lymphadenopathy seen. ?? 04/04/[address] Soto - findings reviewed below: ?? A 5 Fr x 5 cm Hung PD stent was??placed into the duct. The bile duct was then deeply cannulated with the short-nosed traction sphincterotome using a 35 Dreamwire and advanced to the intrahepatic ducts. Contrast was injected. Cholangiogram revealed a dilated CBD to 12 mm with intrahepatic ductal dil itation. A 10 mm biliary sphincterotomy was made with a sphincterotome using ERBE electrocautery. There was no post-sphincterotomy bleeding. Next a 10 mm x 60 mm uncovered metal Wallflex stent was placed into the CBD. Bile flowed from the duct following placement. ?? 04/04/18 EUS [facility] cytopathology per Acc# [id number] was interpreted as Positive for Malignancy. Carcinoma with acinar and ductal differentiation. The lesional cells are immunoreactive for Trypsin, CK7, CK19, MUC1 (focal) and monoclonal CEA (focal); they are negative for synaptophysin and may-catenin (negative for nuclear staining). SMAD4 expression is retained in lesional cells. 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 ?? 04/15/18 surgical oncology consult. He lost 17 pounds though had a lost over 50 pounds intentionallyas part of a biggest looser competition that began in at work. 04/23/18 Laparoscopic exploration showed no metastases- the liver looked dark consistent with recentbiliary obstruction but no surface nodules. The gallbladder was somewhat thickened and distended. Noperitoneal, omental or serosal nodules. No ascites. No biopsy was performed. 05/05/2018 he underwent robotic Whipple procedure. His postoperative course was uncomplicated. 06/25/18 - Began adjuvant chemotherapy with Folfirinox, s/p 12 cycles, completed 11/24/[address] Sosa. 05/19/2019 CA-19-9 less than 2. 05/19/2019 CT chest, abdomen pelvis showed no local or distant recurrence see report below. IMPRESSION 1. Post Whipple without evidence of local recurrence or regional or distant metastases. 2. New hazy nodular opacities within the superior segment of the LEFT lower lobe could represent an early pneumonia or inflammation from aspiration. Metastases are less likely. Medications: ??? omeprazole (PRILOSEC) 40 mg Capsule, Delayed Release(E.C.) ??? CREON 24,000-76,000 -120,000 unit Capsule, Delayed Release(E.C.) ??? loperamide (IMODIUM A-D) 2 mg Tablet No current facility-administered medications for this visit. Pathology: 05/05/18 Acc# [id number] Surgical Pathology DIAGNOSIS A - Head of pancreas, antrum, duodenum for frozen section Pancreatic ductal adenocarcinoma, well-differentiated (pT2 N0), margins negative. See ??synoptic report. See dicussion #1. B - Common hepatic artery lymph node One lymph node negative for carcinoma (0 / 1). C - Gallbladder: Gallbladder within normal limits. Synoptic report: Specimen ?Procedure: ??Pancreaticoduodenectomy (Whipple resection), partial ? pancreatectomy Tumor ?Tumor Site: ??Pancreatic head ?Histologic Type: ?? Ductal adenocarcinoma ?Histologic Grade: ?? G1: Well differentiated ?Tumor Size: ?? 2.3 x 2 x 2 Centimeters (cm) ?Tumor Extent ? Tumor Extension: ?? Tumor invades duodenal wall, Tumor invades ?peripancreatic soft tissues ?Accessory Findings ? Treatment Effect: ?? No known presurgical therapy ? Lymphovascular Invasion: ?? Not identified ? Perineural Invasion: ?? Present Margins ?Margins: ??All margins are uninvolved by invasive carcinoma and high-grade ? intraepithelial neoplasia ? Margins Examined: ?? Pancreatic neck / parenchymal, Uncinate ?(retroperitoneal / superior mesenteric artery), Bile duct, Proximal ?(gastric or duodenal), Distal (duodenal or jejunal), Vascular [...] neoplasia ? Highest Grade (PanIN): ?? 2 Objective: Vitals: Blood pressure 98/58, pulse 57, temperature 36.8 ??C (98.3 ??F), resp. rate 16, weight 79.2 kg (174 lb 8 oz), SpO2 100 %. 11/04/18 he weighed 151 pounds. His weight before surgery was 157 pounds. General: Jaciel looks great. He is very well appearing. He ambulates onto the exam table without anydifficulty. He is by himself today. Chest: Auscultation on exam of posterior lung del castillo- CTA B Heart: RRR Abdomen: Soft, nondistended and nontender. Port sites scars with no hernias. Extremities: No peripheral edema and symmetric bilaterally. Assessment and plans: Jaciel comes into the clinic today for his 12 month post whipple assessment for a pT2N0 pancreatic cancer and he is status post adjuvant systemic chemotherapy with modified FOLFIRINOX per Dr. Sosa-she completed 12 cycles on 11/24/2018. He really is doing quite well. He has no symptoms of pancreatic exocrine insufficiency. He has 2 bowel movements per day. No diarrhea. He does not have post pancreatectomy diabetes. Labs today look good. No iron deficiency, vitamin B12 deficiency. We discussed the plan to stop taking Creon and wait about a month to see if he has any symptoms of pancreatic exocrine insufficiency. We reviewed the symptoms in detail and as long as he is not having any loose stools or frequent stools, worsening flatulence or weight loss that I think he can then stop the omeprazole and after an additional month off of omeprazole in 2 months of pancreatic enzyme replacement we can reassess whether or not he needs to be taking pancreatic enzymes selectively or can he stop taking pancreatic enzymes altogether. He is interested in donating the excess pancreatic enzymes, as he just got a refill, to our donation program if he really does not need them in the long run.It is great to see him doing so well. Dr. Sosa is following him for oncologic surveillance and today CT scan of the chest, abdomen and pelvis showed no local recurrence and just some haziness in the left lower lobe was commented on and he is going to get a repeat CT chest in 2 months time to follow that and I suspect it will not be concerning for metastatic disease. His CA-19-9 today is less than 2. I will look forward to seeing him back in 1 years time for his annual post Whipple appointment. Estela Collazo MD 05/19/2019 10:39 AM Labs reviewed below: Recent Results (from the past 24 hour(s)) Comprehensive metabolic panel (non-fasting) Result Value Ref Range Glucose Lvl 89 65 - 199 mg/dL BUN 16 10 - 20 mg/dL Creatinine 0.80 0.80 - 1.50 mg/dL Sodium 141 135 - 145 mmol/L Potassium 3.8 3.5 - 5.0 mmol/L Chloride 102 98 - 107 mmol/L CO2 30 22 - 31 mmol/L Anion Gap 9 5 - 15 mmol/L Calcium 9.1 8.5 - 10.5 mg/dL Total Protein 7.7 6.1 - 8.0 gm/dL Albumin 4.4 3.2 - 5.2 gm/dL AST 35 0 - 39 unit/L ALT 35 0 - 55 unit/L Alk Phos 86 40 - 130 unit/L Total Bilirubin 0.2 0.2 - 1.3 mg/dL eGFR 98 >=60 mL/min/1.73 m?? eGFR 113 >=60 mL/min/1.73 m?? Carbohydrate Antigen 19-9 Result Value Ref Range CA 19-9 <2.0 <=35.0 u/ml Vitamin B12 Result Value Ref Range Vitamin B-12 1,019 232 - 1,245 pg/mL Ferritin Result Value Ref Range Ferritin 362 30 - 400 ng/mL Iron Result Value Ref Range Iron 79 45 - 160 mcg/dL Hemogram Result Value Ref Range WBC 5.0 4.0 - 9.5 x10(3)/mcL RBC 4.63 4.58 - 5.54 x10(6)/mcL Hemoglobin 14.2 13.7 - 16.5 gm/dL Hematocrit 43.1 40.5 - 48.5 % MCV 93.1 82.9 - 93.1 fL MCH 30.7 27.5 - 32.1 pg MCHC 32.9 32.0 - 35.7 gm/dL Platelets 161 145 - 357 x10(3)/mcL RDWSD 45.1 (H) 36.0 - 45.0 fL RDWCV 13.2 11.4 - 13.8 % MPV 9.5 7.6 - 12.9 fL nRBC % Auto 0.0 % nRBC Abs Auto 0.000 0.000 - 0.000 x10(3)/mcL Differential, Automated Result Value Ref Range Neutrophils % 48.0 % Neutr Abs (ANC) 2.43 1.70 - 6.10 x10(3)/mcL Lymphocytes % 33.9 % Lymphocytes Abs 1.7 0.9 - 3.2 x10(3)/mcL Monocytes % 14.5 % Monocyte Abs 0.7 0.3 - 0.9 x10(3)/mcL Eosinophils % 2.6 % Eosinophils Abs 0.1 0.0 - 0.4 x10(3)/mcL Basophils % 0.6 % Basophils Abs 0.0 0.0 - 0.1 x10(3)/mcL Immature Gran % 0.40 % Magnolia Gran Abs 0.02 0.00 - 0.04 x10(3)/mcL documented in this encounter Plan of Treatment Upcoming Encounters Date Type Specialty Care Team Description 02/23/2022 Office Visit Hematology and Oncology Gigi Sosa MD [facility] [place] [address] Ebonie Gordon APRN [address] [place] [address] DR MEDICAL ONCOLOGY [place], [place] [id number] documented as of this encounter Visit Diagnoses Diagnosis Exocrine pancreatic insufficiency Other specified disease of pancreas documented in this encounter Care Teams Rubber Splicer Relationship Specialty Start Date End Date Corrie Pacheco APRN PCP - General Family Medicine 04/04/[address] [place], [place] [id number] documented as of this encounter
--- OUTSIDE RECORDS SUMMARY | 2022-02-23 01:42 | XMS_ITS | Encounter Summary ---
:1960 Author Organization [facility] [place] [address] Care Team Providers Name Role Phone Corrie Pacheco APRN Primary Care Provider Reason for Visit Reason Comments Follow-up Encounter Details Date Type Department Care Team Description 08/23/2020 Office Visit Hematology and Gigi Sosa Maligna nt neoplasm of Oncology at [facility] MD head of pancreas [facility] [address] [place] [address] [place] [address] [phone] Social History Tobacco Use Types Packs/Day Years [...] Sign Reading Time Taken Comments Blood Pressure 118/76 08/23/2020 1:52 PM EDT Pulse 60 08/23/2020 1:52 PM EDT Temperature 36.5 ??C (97.7 ??F) 08/23/2020 1:52 PM EDT Respiratory Rate 16 08/23/2020 1:52 PM EDT Oxygen Saturation 100% 08/23/2020 1:52 PM EDT Inhaled Oxygen Concentration - - Weight 83 kg (183 lb) 08/23/2020 1:52 PM EDT Height 173.3 cm (5' 8.23) 08/23/2020 1:52 PM EDT Body Mass Index 27.64 08/23/2020 1:52 PM EDT documented in this encounter Progress Notes Gigi Sosa MD - 08/23/2020 2:00 PM EDT Subjective: Patient ID: Jaciel Combs [...] and may- catenin (negative for nuclear staining). [id number] is retained in lesional cells. ??Overall, the [...] measured 14 mm, suspicious for recurrent disease. [facility] second read - IMPRESSION ?? [...] recent Covid vaccination in the right arm. HPI Jaciel Combs is seen in f/u of pancreatic cancer. The history is summarized above. On 05/05/18 he underwent a robotic Whipple procedure by Dr. Collazo. The path report is above. On 06/25/18, he began adjuvant chemotherapy with Folfirinox. He completed the planned 12 cycles of therapy on 11/24/18. The CT scan done on 08/09/20 showed indeterminate ground glass opacities in the lungs and increased prominence of a mesenteric soft tissue nodule. He is here today with his and had a PET scan for further evaluation. He is feeling well today. However, he had been feeling poorly and [...] or 08/19. His energy returned and he feels as though he is back to himself. He went back to work on 08/23. His was also ill during this time with what she describes as a chest cold. Her symptoms have resolve also. Of note, hereceived the first covid 19 vaccine shot on 08/14/20. 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 HENT: Head: Normocephalic and atraumatic. Eyes: No scleral icterus. Cardiovascular: Normal rate. Pulmonary/Chest: No respiratory distress. Abdominal: He exhibits no distension. Musculoskeletal: General: No edema. Neurological: He is alert and oriented to [...] cycles on 11/24/18. The CT done 08/09/20 showed a couple of [...] do a PET scan. This was done today. The soft tissue abnormality in the pancreatic bed is FDG avid, consistent with disease recurrence. There are multiple other areas of increased uptake in the chest which may be reactive. The right axillary LN is felt to be related to the covid vaccinshot given on 08/14 (it was given in the right arm). Other areas of dayanara uptake may be related to what appears to an inflammatory/infectious process in the bilateral lungs. We talked about whether thismay be related to covid infection and I spoke with the covid hotline. Given that he is feeling much better, asymptomatic at this time, testing was not recommended as it would not change control analyst or recommendations regarding quarantine. Because his symptoms have resolved, I did not start antibiotics t john. I asked him to let me know if he has worsening symptoms at any time and I will plan to touch base with him in about two weeks. In terms of management of what appears to be a local recurrence of the pancreatic cancer, we discussed that this depends on the nature of the other areas of abnormality. If these other areas are reactive, then would consider local therapy such as SBRT or ablation to the mesenteric soft tissue abnormali ty. However, if the other areas are cancer related, the systemic therapy would be the main option. Our plan is to repeat the PET scan in about 8 weeks for further evaluation. documented in this encounter Plan of Treatment Upcoming Encounters Date Type Specialty Care Team Description 02/23/2022 Office Visit Hematology and Oncology Gigi Sosa MD [facility] [place] [address] Ebonie Gordon APRN [address] [place] [address] DR MEDICAL ONCOLOGY [place], [place] [id number] documented as of this encounter Visit Diagnoses Diagnosis Malignant neoplasm of head of pancreas documented in this encounter Care Teams Shadowgraph Scale Operator Relationship Specialty Start Date End Date Corrie Pacheco APRN PCP - General Family Medicine 04/04/[address] [place] [place] [address] documented as of this encounter
--- OUTSIDE RECORDS SUMMARY | 2022-02-23 01:42 | XMS_ITS | Encounter Summary ---
:1960 Author Organization [facility] [place] [address] Care Team Providers Name Role Phone Corrie Pacheco APRN Primary Care Provider Reason for Visit Reason Comments Simulation Consultation (Routine) - Closed Specialty Diagnoses / Procedures Referred By Contact Refer red To Contact Radiation Oncology Diagnoses Malignant neoplasm of head of pancreas Marco Carlson MD [facility] Rad Onc Office Procedures Simulation for Radiation Therapy Planning [facility] [place] [address] [place] [address] Phone: Fax: Referral ID Status Reason Start Date Expiration Date Visits V isits Requested Authorized [id number] Closed Consult, 11/15/2020 02/12/2021 5 5 Test & Treat Encounter Details Date Type Department Care Team Description 11/15/2020 Ancillary Appointment Radiation Oncology at Marco Carlson MD [facility] [address] [place] [address] [place] [address] [phone] Social History Tobacco Use Types Packs/Day Years [...] Sign Reading Time Taken Comments Blood Pressure 123/70 11/15/2020 11:49 AM EDT Pulse 57 11/15/2020 11:49 AM EDT Temperature 36.9 ??C (98.4 ??F) 11/15/2020 11:49 AM EDT Respiratory Rate 12 11/15/2020 11:49 AM EDT Oxygen Saturation 100% 11/15/2020 11:49 AM EDT Inhaled Oxygen Concentration - - Weight 81.8 kg (180 lb 6.4 oz) 11/15/2020 11:49 AM EDT Height - - Body Mass Index 27.18 10/18/2020 1:21 PM EDT documented in this encounter Plan of Treatment Upcoming Encounters Date Type Specialty Care Team Description 02/23/2022 Office Visit Hematology and Oncology Gigi Sosa MD [facility] [place] [address] Ebonie Gordon APRN [address] [place] [address] DR MEDICAL ONCOLOGY [place], [place] [id number] Scheduled Orders Name Type Priority Associated Diagnoses Order S chedule Simulation for Procedures Routine Malignant neoplasm of Orde red: 11/03/2020 Radiation Therapy head of pancreas Planning documented as of this encounter Visit Diagnoses Not on filedocumented in this encounter Care Teams Back Tender Relationship Specialty Start Date End Date Corrie Pacheco APRN PCP - General Family Medicine 04/04/[address] [place] [address] documented as of this encounter
--- OUTSIDE RECORDS SUMMARY | 2022-02-23 01:42 | XMS_ITS | Encounter Summary ---
:1960 Author Organization [facility] [place] [address] Care Team Providers Name Role Phone Corrie Pacheco APRN Primary Care Provider Reason for Visit Reason Onset Date Comments Results 01/06/2019 CA19-9 Encounter Details Date Type Department Care Team Description 01/06/2019 Telephone Hematology/Oncology at [facility], Irma Hess RN Results (CA19-9) [address] [phone] Social History Tobacco Use Types Packs/Day Years [...] this encounter Miscellaneous Notes Telephone Encounter - Irma Valero RN - 01/06/2019 8:36 AM EDT Jaciel's CA19-9 level drawn 01/02 at [facility] level was <2. Forwarded results to Dr. Sosa. Called ana Grissom know as well. Encouraged to call if any needs arise. documented in this encounter Plan of Treatment Upcoming Encounters Date Type Specialty Care Team Description 02/23/2022 Office Visit Hematology and Oncology Gigi Sosa MD [facility] [place] [address] Ebonie Gordon APRN [address] [place] [address] DR MEDICAL ONCOLOGY [place], [place] [address] documented as of this encounter Visit Diagnoses Not on filedocumented in this encounter Care Teams Mushroom Packer Relationship Specialty Start Date End Date Corrie Pacheco APRN PCP - General Family Medicine 04/04/[address] [place], [place] [id number] documented as of this encounter
--- OUTSIDE RECORDS SUMMARY | 2022-02-23 01:42 | XMS_ITS | Encounter Summary ---
:1960 Author Organization [facility] [place] [address] Care Team Providers Name Role Phone Corrie Pacheco APRN Primary Care Provider Reason for Referral Diagnostic Test (Routine) - Closed Specialty Diagnoses / Procedures Referred By Contact Refer red To Contact Radiology Diagnoses Malignant neoplasm of head of pancreas Opacity of lung on imaging study Gigi Sosa MD [facility] Rad [facility] Scan Procedures CT Chest wo Contrast (Generic) [facility] [place] [address] [place] [address] Referral ID Status Reason Start Date Expiration Date Visits V isits Requested Authorized [id number] Closed Specialty 06/29/2019 08/27/2019 1 1 Service Requested Reason for Visit Reason Comments Follow-up Encounter Details Date Type Department Care Team Description 05/19/2019 Office Visit Hematology and Gigi Sosa, Maligna nt neoplasm of head of pancreas; Oncology at [facility] Opacity of lung on imaging study [facility] [address] [place] [address] [place] [address] Social History Tobacco Use Types [...] place to sleep or slept in a jail (including now)? Sex Assigned at Date Recorded Male 07/24/2020 7:58 PM EDT documented as of this encounter Last Filed Vital Signs Vital Sign Reading Time Taken Comments Blood Pressure 129/59 05/19/2019 9:45 AM EST Pulse 57 05/19/2019 9:45 AM EST Temperature 36.6 ??C (97.9 ??F) 05/19/2019 9:45 AM EST Respiratory Rate 18 05/19/2019 9:45 AM EST Oxygen Saturation 98% 05/19/2019 9:45 AM EST Inhaled Oxygen Concentration - - Weight 78.2 kg (172 lb 4.8 oz) 05/19/2019 9:45 AM EST Height 172.8 cm (5' 8.03) 05/19/2019 9:45 AM EST Body Mass Index 26.17 05/19/2019 9:45 AM EST documented in this encounter Progress Notes Gigi Sosa MD - 05/19/2019 10:00 AM EST Subjective: Patient ID: Jaciel Combs is a [...] and may- catenin (negative for nuclear staining). [id number] is retained in lesional cells. ??Overall, the [...] inflammation from aspiration. Metastases are less likely. HPI Mr. Combs is seen in f/u of pancreatic cancer. The history is summarized above. On 05/05/18 he underwent a robotic Whipple procedure by Dr. Collazo. The path report is above. On 06/25/18, he began adjuvant chemotherapy with Folfirinox. He completed the planned 12 cycles of therapy on 11/24/18. On presentation today, he is by himself. He has been feeling very well. His appetite is good and he has gained a few pounds. He continues to take pancreatic enzymes, 2 with meals. He has also continuedto take omeprazole. He doesn't have any particular GI symptoms. His bowels are regular and the stools are formed. No areas of pain. 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 For the past couple of days he has an intermittent non productive cough. No fevers or chills. His has had URI symptoms. 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 Negative for activity change, appetite change, fever [...] distension and no mass. There is no tenderness. There is no guarding. Musculoskeletal: He exhibits no edema. Lymphadenopathy: He has no cervical adenopathy. [...] 0.02 0.00 - 0.04 x10(3)/mcL CA 19-9 05/19/19 <2 01/02/19 <2 06/06/18 3 04/15/[address] personally reviewed, report above Assessment and Plan: Mr. Combs is a 58 yo male seen in f/u of pancreatic cancer. He presented in late 03/[address] A CT was done at [facility] and showed intra and extrahepatic biliary ductal dilatation and question of a mass in the duodenum or head of the pancreas. He was referred to GI at [facility] and on 04/04/18 underwent an ERCP with [...] very well. He had a CT done today, 05/19/19. This does not show any definite evidence of disease recurrence. The main findings is a hazy opacity in the left lung which looks moreconsistent with an inflammatory/infectious process. Metastatic disease is considered to be unlikely.He is afebrile, WBC is WNL. He has a mild cough. I am not inclined to start antibiotics at this point but asked him to let us or his PCP know if he is feeling worse. I would like to repeat a CT chest only in 8 weeks or so to be sure this resolves over time rather than progressing, which would be worrisome. Overall however I think he is doing well. He has gained weight. He has continued the creon. He is going to try going without it and see how hedoes. He is aware of symptoms that indicate pancreatic insufficiency. documented in this encounter Plan of Treatment Upcoming Encounters Date Type Specialty Care Team Description 02/23/2022 Office Visit Hematology and Oncology Gigi Sosa MD [facility] [place] [place] [address] Ebonie Gordon, [address] [place] [address] documented as of this encounter Results CT Chest wo Contrast [...] MD IMG CT ORDERABLES Carbohydrate Antigen 19-9 (07/14/2019 9:23 AM EDT) athologist Signature CA 19-9 <2.0 <=35.0 u/ml [facility] Specimen Anatomical Collection Method Collection Time Receive d Time (Source) Location / / Volume Laterality Blood specimen 07/14/2019 9:23 AM 020 9:44 (specimen) EDT AM EDT Resulting Agency Comment Spec In Lab Gigi Sosa MD CHEMISTRY ORDERABLES Performing Organization Address City/State/[place] [address] Comprehensive metabolic panel (non-fasting) (07/14/2019 9:23 AM EDT) athologist Signature Glucose Lvl 97 65 - 199 [facility] mg/dL [facility] Comment: Diabetes: >=200 mg/dL plus symp toms BUN 15 10 - 20 mg/dL [facility] Creatinine 0.97 0.80 - 1.50 mg/dL [facility] Sodium 139 135 - 145 mmol/L [facility] Potassium 4.7 3.5 - 5.0 mmol/L [facility] Comment: Please note: ??Patients with WBC >100,00 0 may have falsely elevated Potassium levels. ??For accurate Potassium quantif ication in these patients send serum separator tube (gold top) for subsequent determinations. ??Contact the Clinical Chemistry Laboratory if there are any qu estions. Chloride 101 98 - 107 mmol/L [facility] CO2 28 22 - 31 mmol/L [facility] Anion Gap 10 5 - 15 mmol/L [facility] Calcium 9.5 8.5 - 10.5 mg/dL [facility] Total Protein 7.5 6.1 - 8.0 gm/dL [facility] Albumin 4.3 3.2 - 5.2 gm/dL [facility] AST 29 0 - 39 unit/L [facility] ALT 32 0 - 55 unit/L [facility] Alk Phos 77 40 - 130 unit/L [facility] Total Bilirubin 0.3 0.2 - 1.3 mg/dL [facility] Estimated GFR 85 >=60 mL/min/1.73 m?? [facility] Comment: The eGFR was calculated using the CKD-EP I equation. As with all creatinine based estimates of kidney function, eGFR values calculated with the CKD-EPI equation are not accurate in patients wi th acute kidney failure, extremes of body mass or the acutely ill. http://ShelfX/DHMCnkf eGFR 99 >=60 mL/min/1.73 m?? [facility] Comment: The eGFR was calculated using the CKD-EP I equation. As with all creatinine based estimates of kidney function, eGFR values calculated with the CKD-EPI equation are not accurate in patients wi th acute kidney failure, extremes of body mass or the acutely ill. http://ShelfX/DHMCnkf Specimen Anatomical Collection Method Collection Time Receive d Time (Source) Location / / Volume Laterality Blood specimen 07/14/2019 9:23 AM 020 9:45 (specimen) EDT AM EDT Resulting Agency Comment Spec In Lab Gigi Sosa MD CHEMISTRY ORDERABLES Performing Organization Address City/State/[place] [phone] documented in this encounter Visit Diagnoses Diagnosis Malignant neoplasm of head of pancreas Opacity of lung on imaging study Malignant neoplasm of head of pancreas Opacity of lung on imaging study documented in this encounter Care Teams Incident Coordinator Relationship Specialty Start Date End Date Corrie Pacheco APRN PCP - General Family Medicine 04/04/[address] [place] [address] documented as of this encounter
--- OUTSIDE RECORDS SUMMARY | 2022-02-23 01:42 | XMS_ITS | Encounter Summary ---
:1960 Author Organization [place] [address] Care Team Providers Name Role Phone Corrie Pacheco APRN Primary Care Provider Encounter Details Date Type Department Care Team Description 08/11/2020 Orders Only Gastroenterology at [facility] Felipe Soto Mass of pancreas [facility] [place] [address] [facility] [phone] DR GASTROENTEROLOGY [place], [place] [address] Social History Tobacco Use Types [...] MD [facility] [place] [address] Ebonie Gordon APRN [address] [place] [address] DR MEDICAL ONCOLOGY [place], [place] [id number] documented as of this encounter Visit Diagnoses Diagnosis Mass of pancreas Unspecified disease of pancreas documented in this encounter Care Teams Fire Extinguisher Mechanic Relationship Specialty Start Date End Date Corrie Pacheco APRN PCP - General Family Medicine 04/04/[address] [place], [place] [id number] documented as of this encounter
--- OUTSIDE RECORDS SUMMARY | 2022-02-23 01:42 | XMS_ITS | Encounter Summary ---
:1960 Author Organization [place] [address] Care Team Providers Name Role Phone Corrie Pacheco APRN Primary Care Provider Reason for Referral Consultation (Routine) - Closed Specialty Diagnoses / Procedures Referred By Contact Refer red To Contact Radiation Oncology Diagnoses Local recurrence of pancreatic cancer Gigi Sosa MD [place], Nirav S, MD [address] ONCOLOGY RADIATION ONCOLOGY [address] [address] Phone: Fax: Referral ID Status Reason Start Date Expiration Date Visits V isits Requested Authorized [id number] Closed Consult, 10/25/2020 10/25/2021 1 1 Test & Treat Encounter Details Date Type Department Care Team Description 10/24/2020 Multidisciplinary Care Hematology and Raffaele Sosa recurrence Committee Oncology at [facility] [place]igi Solis MD of pancreatic [facility] JESSY Szymanski ONCOLOGY [address] [place], [place] [phone] [facility] Social History Tobacco Use Types Packs/Day Years [...] encounter Progress Notes Gigi Sosa MD - 10/24/2020 8:32 PM EDT GI Tumor Board Note Date Presented: 10/25/20 Presenting Physician: Sheila Diagnosis/Tumor Site:Pancreas Is this Metastatic Disease: Yes Synopsis of History/HPI: 59 yo Choljggrg45/18 with jaundice. Upper EUS - mass in HOP without vascular involvement. FNB - carcinoma with acinar and ductal differentiation. ?? CT c/a/p 04/04/18 - no evidence of distant metastatic disease. There was no vascular involvement. CA19-9 - 0.7. ?? 05/05/18 - robotic whipple procedure. Path - well diff adenocarcinoma with invasion of peripancreatic soft tissues, pT2. 2 LNs seen, both negative, pN0. Margins of resection - negative. No acinar differentiation was seen in this specimen. ?? 06/25/18 - began adjuvant chemotherapy with Folfirinox, completed the planned 12 cycles on 11/24/18. ?? CT 08/09/20 - enlarging mesenteric soft tissue nodule in the surgical bed and a second stable mesenteric soft tissue nodule. I communicated with Dr. Soto. It may be possible to reach this area by upper EUS and perform a bx but it may be difficult. ?? PET 08/23/20 - soft tissue abnormality in the pancreatic bed FDG avid, consistent with disease recurrence. There were multiple other areas of increased uptake in the chest, possibly reactive. The right axillary LN was felt likely to be related to the covid vaccine shot given on 08/14 (it was given in the right arm). Other areas of dayanara uptake may be related to what appears to an inflammatory/infectious process in the bilateral lungs. ?? PET scan was repeated 10/18/20 - increase in the FDG avid soft tissue focus in the pancreatic bed, now measuring 1.8 cm. There has been resolution of the FDG avid pulmonary opacities and near complete resolution of FDG avid thoracic adenopathy consistent with resolved infection. ?? Imaging:CT and PET scan reviewed Pathology/Histology: Adenocarcinoma Stage:Local recurrence Clinical Data (Exams, Labs, etc.): Molecular Pathology Results:N/A Clinical Trial Availability: None Options Discussed: Locally directed therapy felt to be reasonable. Several options including surgery(may be difficult given previous surgery), ablation and SBRT. SBRT favored by group. Recommendations: Referral to Radiation Oncology for consideration of SBRT. Also, has not yet been seen by [facility] Cancer program, referral recommended. DISCLAIMER: The patient was discussed and the tumor board made recommendations but it is ultimately up to the treatment provider(s) and the patient to determine the patient???s care. documented in this encounter Plan of Treatment Upcoming Encounters Date Type Specialty Care Team Description 02/23/2022 Office Visit Hematology and Oncology Gigi Sosa MD [facility] [place] [address] Ebonie Gordon, [address] [place] [address] Scheduled Referrals Name Type Priority Associated Diagnoses Order S chedule Referral to Outpatient Referral Routine Local recurrence of O rdered: Radiation Oncology pancreatic cancer 10/05 documented as of this encounter Results Comprehensive metabolic panel (non-fasting) (11/15/2021 2:38 PM EDT) athologist Signature Glucose Lvl 92 65 - 199 [facility] mg/dL [facility] Comment: Diabetes: >=200 mg/dL plus symp toms BUN 19 10 - 20 mg/dL [facility] Creatinine 1.03 0.80 - 1.50 mg/dL [facility] Sodium 139 135 - 145 mmol/L [facility] Potassium 3.9 3.5 - 5.0 mmol/L [facility] Comment: Please note: ??Patients with WBC >100,00 0 may have falsely elevated Potassium levels. ??For accurate Potassium quantif ication in these patients send serum separator tube (gold top) for subsequent determinations. ??Contact the Clinical Chemistry Laboratory if there are any qu estions. Chloride 103 98 - 107 mmol/L [facility] CO2 27 22 - 31 mmol/L [facility] Anion Gap 9 5 - 15 mmol/L [facility] Calcium 9.2 8.5 - 10.5 mg/dL [facility] Total Protein 7.6 6.1 - 8.0 g/dL [facility] Albumin 4.5 3.2 - 5.2 g/dL [facility] AST 22 0 - 39 unit/L [facility] ALT 27 0 - 55 unit/L [facility] Alk Phos 56 40 - 130 unit/L [facility] Total Bilirubin 0.5 0.2 - 1.3 mg/dL [facility] Estimated GFR 83 >=60 mL/min/1.73 m?? [facility] Comment: This patient's estimated GFR was [...] Organization Address City/State/[place] [address] documented in this encounter Visit Diagnoses Diagnosis Local recurrence of pancreatic cancer documented in this encounter Care Teams Mechanical Ordnance Assembler Relationship Specialty Start Date End Date Corrie Pacheco APRN PCP - General Family Medicine 04/04/18 [place] [address] documented as of this encounter
--- OUTSIDE RECORDS SUMMARY | 2022-02-23 01:42 | XMS_ITS | Encounter Summary ---
:1960 Author Organization [place] [address] Care Team Providers Name Role Phone Corrie Pacheco APRN Primary Care Provider Reason for Referral Diagnostic Test (Routine) - Closed Specialty Diagnoses / Procedures Referred By Contact Refer red To Contact Radiology Diagnoses Malignant neoplasm of head of pancreas Gigi Sosa MD [facility] Rad Nuclear Med Procedures NM PET CT Skull Base [place] [address] [place] [address] Referral ID Status Reason Start Date Expiration Date Visits V isits Requested Authorized [id number] Closed Specialty 09/30/2020 11/28/2020 1 1 Service Requested Reason for Visit Diagnostic Test (Routine) - Closed Specialty Diagnoses / Procedures Referred By Contact Refer red To Contact Radiology Diagnoses Malignant neoplasm of head of pancreas Gigi Sosa MD [facility] Rad Nuclear Med Procedures NM PET CT Skull Base to Mid-thigh [facility] [place] [address] [place] [address] Referral ID Status Reason Start Date Expiration Date Visits V isits Requested Authorized [id number] Closed Specialty 09/30/2020 11/28/2020 1 1 Service Requested Encounter Details Date Type Department Care Team Description 10/18/2020 Hospital Encounter Nuclear Medicine at [facility], Gigi Malignant neoplasm Alice Solis MD of head of pancreas [facility] [address] [place], [place] [address] JESSY [place] [phone] Social History Tobacco Use Types Packs/Day Years [...] Visit Hematology and Oncology Gigi Sosa MD [facility] [place] [address] Ebonie Gordon, ASSOCIATE PROFESSOR OF LIBRARY SCIENCE [address] [place] [address] [place] [address] documented as of this encounter Procedures Procedure [...] who have questions please contact the health child care provider that requested your imaging first. ? Narrative [...] evaluation TECHNIQUE: Following IV injection of 18- ifywhy-5-yfmdngaltszf (FDG) a standard uptake of approximately 60 [...] evaluation TECHNIQUE: Following IV injection of 18- qlspol-6-iiugpocyhzgs (FDG) a standard uptake of approximately 60 [...] ho have questions please contact the health child care provider that requested your imaging first. Gigi Sosa MD IMG PET ORDERABLES documented in this encounter Visit Diagnoses Diagnosis Malignant neoplasm of head of pancreas documented in this encounter Administered Medications Inactive Administered Medications - up to 3 most recent administrations Medication Order MAR Action Action Date Dose Rate Site fludeoxyglucose (F-18) FDG Given 10/18/2020 8:57 AM 12.5 mCi Right Arm injection 0-20 mCi EDT 0-20 mCi, Intravenous, ONCE PRN, 1 dose, Starting on Sat10/18/20 at 0901, Until Sat10/18/20 at 0857, Per Protocol, Radiology Contrast, Routine documented in this encounter Care Teams Clinical Administrative Coordinator Relationship Specialty Start Date End Date Corrie Pacheco APRN PCP - General Family Medicine 04/04/[address] [place] [address] documented as of this encounter
--- OUTSIDE RECORDS SUMMARY | 2022-02-23 01:42 | XMS_ITS | Encounter Summary ---
:1960 Author Organization [facility] [place] [address] Care Team Providers Name Role Phone Corrie Pacheco APRN Primary Care Provider Reason for Visit Diagnostic Test (Routine) - Closed Specialty Diagnoses / Procedures Referred By Contact Refer red To Contact Radiology Diagnoses Malignant neoplasm of pancreas, unspecified location of malignancy Marco Carlson MD [facility] Rad Mri Procedures MR Rad Onc Body Interp Only [facility] [place] [address] [place] [address] Referral ID Status Reason Start Date Expiration Date Visits V isits Requested Authorized [id number] Closed Specialty 11/15/2020 05/18/2022 1 1 Service Requested Encounter Details Date Type Department Care Team Description 11/15/2020 Ancillary Procedure Radiation Oncology Marco Carlson I, Malignant neoplasm at Alice Combs MD of pancreas, [facility] unspecified location [facility] malignancy [facility] RADIATION [place], [place] ON[place]OGY [address] [place], [place] [phone] Social History Tobacco Use Types Packs/Day Years [...] MD [facility] [place] [address] Ebonie Gordon APRN [address] [place] [address] [place] [address] documented as of this encounter Procedures Procedure Name Priority Date/Time Associated Diagnosis Comme nts MR RAD ONC BODY Routine 11/15/2020 3:53 PM Malignant neoplasm Results for this INTERP ONLY EDT of pancreas, procedure are i n unspecified location the res ults of malignancy section. documented in this encounter Results MR Rad Onc Body Interp Only (11/15/2020 3:53 PM EDT) Anatomical Region Laterality Modality Abdomen Magnetic Resonance Specimen (Source) Anatomical Location Collection Method / Collectio n Time Received Time / Laterality Volume Impressions 11/15/2020 3:[address] and MR obtained for radiation therapy planning purposes. Thank you for letting us participate in the care of this patient. ??If you are a health care provider and have any questi ons regarding this report, please contact the number below. ??For patients who have questions please contact the health patient care that requested your imaging first. ? Electronically signed by: Wes Cooney DO, [facility] ([phone]), at 11/15/2020 3:59 PM Narrative 11/15/2020 3:59 PM EDT EXAMINATION: CT RAD ONC BODY INTERP ONLY, MR RAD ONC BODY INTERP ONLY CLINICAL HISTORY: Recurrent pancreatic c ancer with local tumor bed mass. TECHNIQUE: Limited CT and MR without the use of oral or IV contrast enhancement, performed for the purposes of localizati on for radiation treatment. COMPARISON: Correlation is made to CT of the abdomen and pelvis dated August 09, 2020 and PET/CT examination dated October 042020 FINDINGS: Limitations: Lack of intravenous contras t limits evaluation of the visceral organs, gastrointestinal tract, and vasc ular structures. [employer] Images: Noncontributory. Lower chest: There is dependent atelecta sis bilaterally. ??There is a curvilinear band of pulmonary parenchymal scarring w ithin the left lingula. ??Cardiac size is at the upper limits of normal. ??There i s bilateral gynecomastia. Liver: Normal. Bile ducts: There is no biliary ductal d ilatation. ??There is scattered pneumobilia. ??The hepaticojejunostomy a ppears within normal limits. Gallbladder: The gallbladder is surgical ly absent. Pancreas: There is been prior Whipple re section. ??There is a persistent soft tissue nodularity at the operative site, measuring up to 22 mm in diameter. This is contiguous with the surgical sta ples at the resection site. ??There is moderate atrophy of the remainder of the pancreas. Spleen: Normal. Adrenals: Normal. Kidneys: Normal. Vasculature: The unenhanced aorta and in ferior vena cava are normal in course. Lymph Nodes: There are no pathologically enlarged lymph nodes. Bowel: Limited evaluation the distal eso phagus is unremarkable. ??There is been prior partial gastrectomy from Whipple p rocedure. ??The gastrojejunostomy appears patent. ??The remainder of the visualize d small and large bowel are within normal limits. ??There is moderate volume of st ool within the visualized large bowel. Peritoneum and mesentery: No ascites, fr ee air, or loculated fluid collection. No mesenteric inflammation. Abdominal wall: Normal. Osseous structures: No suspicious lesion s. Procedure Note Wes Cooney, DO - 11/15/2020Formatti ng of this note might be different from the original. EXAMINATION: CT RAD ONC BODY INTERP ONLY , MR RAD ONC BODY INTERP ONLY CLINICAL HISTORY: Recurrent pancreatic c ancer with local tumor bed mass. TECHNIQUE: Limited CT and MR without the use of oral or IV contrast enhancement, performed for the purposes of localizati on for radiation treatment. COMPARISON: Correlation is made to CT of the abdomen and pelvis dated August 09, 2020 and PET/CT examination dated October 042020 FINDINGS: Limitations: Lack of intravenous contras t limits evaluation of the visceral organs, gastrointestinal tract, and vasc ular structures. [employer] Images: Noncontributory. Lower chest: There is dependent atelecta sis bilaterally. There is a curvilinear band of pulmonary parenchymal scarring w ithin the left lingula. Cardiac size is at the upper limits of normal. There is bilateral gynecomastia. Liver: Normal. Bile ducts: There is no biliary ductal d ilatation. There is scattered pneumobilia. The hepaticojejunostomy laura ears within normal limits. Gallbladder: The gallbladder is surgical ly absent. Pancreas: There is been prior Whipple re section. There is a persistent soft tissue nodularity at the operative site, measuring up to 22 mm in diameter. This is contiguous with the surgical sta ples at the resection site. There is moderate atrophy of the remainder of the pancreas. Spleen: Normal. Adrenals: Normal. Kidneys: Normal. Vasculature: The unenhanced aorta and in ferior vena cava are normal in course. Lymph Nodes: There are no pathologically enlarged lymph nodes. Bowel: Limited evaluation the distal eso phagus is unremarkable. There is been prior partial gastrectomy from Whipple p rocedure. The gastrojejunostomy appears patent. The remainder of the visualized small and large bowel are within normal limits. There is moderate volume of stoo l within the visualized large bowel. Peritoneum and mesentery: No ascites, fr ee air, or loculated fluid collection. No mesenteric inflammation. Abdominal wall: Normal. Osseous structures: No suspicious lesion s. IMPRESSION CT and MR obtained for radiation therapy planning purposes. Thank you for letting us participate in the care of this patient. If you are a health care provider and have any questi ons regarding this report, please contact the number below. For patients w ho have questions please contact the health patient care that requested your imaging first. Electronically signed by: Wes Cooney DO, [facility] ([phone]), at 11/15/2020 3:59 PM Marco Love MD IMG MRI ORDERABLES CT Rad Onc Body Interp Only (11/15/2020 1:34 PM EDT) Anatomical Region Laterality Modality Abdomen Computed Tomography Specimen (Source) Anatomical Location Collection Method / Collectio n Time Received Time / Laterality Volume Impressions 11/15/2020 3:[address] and MR obtained for radiation therapy planning purposes. Thank you for letting us participate in the care of this patient. ??If you are a health care provider and have any questi ons regarding this report, please contact the number below. ??For patients who have questions please contact the health patient care that requested your imaging first. ? Electronically signed by: Wes Cooney DO, [facility] ([phone]), at 11/15/2020 3:59 PM Narrative 11/15/2020 3:59 PM EDT EXAMINATION: CT RAD ONC BODY INTERP ONLY, MR RAD ONC BODY INTERP ONLY CLINICAL HISTORY: Recurrent pancreatic c ancer with local tumor bed mass. TECHNIQUE: Limited CT and MR without the use of oral or IV contrast enhancement, performed for the purposes of localizati on for radiation treatment. COMPARISON: Correlation is made to CT of the abdomen and pelvis dated August 09, 2020 and PET/CT examination dated October 042020 FINDINGS: Limitations: Lack of intravenous contras t limits evaluation of the visceral organs, gastrointestinal tract, and vasc ular structures. [employer] Images: Noncontributory. Lower chest: There is dependent atelecta sis bilaterally. ??There is a curvilinear band of pulmonary parenchymal scarring w ithin the left lingula. ??Cardiac size is at the upper limits of normal. ??There i s bilateral gynecomastia. Liver: Normal. Bile ducts: There is no biliary ductal d ilatation. ??There is scattered pneumobilia. ??The hepaticojejunostomy a ppears within normal limits. Gallbladder: The gallbladder is surgical ly absent. Pancreas: There is been prior Whipple re section. ??There is a persistent soft tissue nodularity at the operative site, measuring up to 22 mm in diameter. This is contiguous with the surgical sta ples at the resection site. ??There is moderate atrophy of the remainder of the pancreas. Spleen: Normal. Adrenals: Normal. Kidneys: Normal. Vasculature: The unenhanced aorta and in ferior vena cava are normal in course. Lymph Nodes: There are no pathologically enlarged lymph nodes. Bowel: Limited evaluation the distal eso phagus is unremarkable. ??There is been prior partial gastrectomy from Whipple p rocedure. ??The gastrojejunostomy appears patent. ??The remainder of the visualize d small and large bowel are within normal limits. ??There is moderate volume of st ool within the visualized large bowel. Peritoneum and mesentery: No ascites, fr ee air, or loculated fluid collection. No mesenteric inflammation. Abdominal wall: Normal. Osseous structures: No suspicious lesion s. Procedure Note ErosWes phillips Stu, DO - 11/15/2020Formatti ng of this note might be different from the original. EXAMINATION: CT RAD ONC BODY INTERP ONLY , MR RAD ONC BODY INTERP ONLY CLINICAL HISTORY: Recurrent pancreatic c ancer with local tumor bed mass. TECHNIQUE: Limited CT and MR without the use of oral or IV contrast enhancement, performed for the purposes of localizati on for radiation treatment. COMPARISON: Correlation is made to CT of the abdomen and pelvis dated August 09, 2020 and PET/CT examination dated October 042020 FINDINGS: Limitations: Lack of intravenous contras t limits evaluation of the visceral organs, gastrointestinal tract, and vasc ular structures. [employer] Images: Noncontributory. Lower chest: There is dependent atelecta sis bilaterally. There is a curvilinear band of pulmonary parenchymal scarring w ithin the left lingula. Cardiac size is at the upper limits of normal. There is bilateral gynecomastia. Liver: Normal. Bile ducts: There is no biliary ductal d ilatation. There is scattered pneumobilia. The hepaticojejunostomy laura ears within normal limits. Gallbladder: The gallbladder is surgical ly absent. Pancreas: There is been prior Whipple re section. There is a persistent soft tissue nodularity at the operative site, measuring up to 22 mm in diameter. This is contiguous with the surgical sta ples at the resection site. There is moderate atrophy of the remainder of the pancreas. Spleen: Normal. Adrenals: Normal. Kidneys: Normal. Vasculature: The unenhanced aorta and in ferior vena cava are normal in course. Lymph Nodes: There are no pathologically enlarged lymph nodes. Bowel: Limited evaluation the distal eso phagus is unremarkable. There is been prior partial gastrectomy from Whipple p rocedure. The gastrojejunostomy appears patent. The remainder of the visualized small and large bowel are within normal limits. There is moderate volume of stoo l within the visualized large bowel. Peritoneum and mesentery: No ascites, fr ee air, or loculated fluid collection. No mesenteric inflammation. Abdominal wall: Normal. Osseous structures: No suspicious lesion s. IMPRESSION CT and MR obtained for radiation therapy planning purposes. Thank you for letting us participate in the care of this patient. If you are a health care provider and have any questi ons regarding this report, please contact the number below. For patients w ho have questions please contact the health patient care that requested your imaging first. Electronically signed by: Wes Cooney DO, [facility] ([phone]), at 11/15/2020 3:59 PM Marco Love MD IMG OUTSIDE INTERPRETATION O RDERABLES documented in this encounter Visit Diagnoses Diagnosis Malignant neoplasm of pancreas, unspecif ied location of malignancy documented in this encounter Care Teams Product Marketing Coordinator Relationship Specialty Start Date End Date Corrie Pacheco APRN PCP - General Family Medicine 04/04/18 [place] [address] documented as of this encounter
--- OUTSIDE RECORDS SUMMARY | 2022-02-23 01:42 | XMS_ITS | Encounter Summary ---
:1960 Author Organization [place] [address] Care Team Providers Name Role Phone Corrie Pacheco APRN Primary Care Provider Reason for Referral Diagnostic Test (Routine) - Closed Specialty Diagnoses / Procedures Referred By Contact Refer red To Contact Radiology Diagnoses Malignant neoplasm of head of pancreas Gigi Sosa MD [facility] Interventionl Rad Procedures IR [facility] [place] [address] [place] [address] Referral ID Status Reason Start Date Expiration Date Visits V isits Requested Authorized [id number] Closed Specialty 01/02/2019 01/02/2020 1 1 Service Requested Reason for Visit Diagnostic Test (Routine) - Closed Specialty Diagnoses / Procedures Referred By Contact Refer red To Contact Radiology Diagnoses Malignant neoplasm of head of pancreas Gigi Sosa MD [facility] Interventionl Rad Procedures IR [facility] Rem[facility] [address] [place] [address] Referral ID Status Reason Start Date Expiration Date Visits V isits Requested Authorized [id number] Closed Specialty 01/02/2019 01/02/2020 1 1 Service Requested Encounter Details Date Type Department Care Team Description 01/13/2019 Hospital Encounter Radiology at [facility] [place] Gigi Sosa Malignant neoplasm [facility] MD Will of head of [address] [place], [place] [id number] ONCOLOGY [phone] [place] [address] Social History Tobacco Use Types Packs/Day Years [...] Sign Reading Time Taken Comments Blood Pressure 91/48 01/13/2019 2:15 PM EDT Pulse 67 01/13/2019 2:05 PM EDT Temperature 36.4 ??C (97.6 ??F) 01/13/2019 2:15 PM EDT Respiratory Rate 16 01/13/2019 2:15 PM EDT Oxygen Saturation 96% 01/13/2019 2:15 PM EDT Inhaled Oxygen Concentration - - Weight - - Height - - Body Mass Index - - documented in this encounter Discharge Instructions Discharge InstructionsLuana Snider RN - 01/13/2019 1:57 PM EDT [facility] Vascular and Interventional Radiology Discharge Instructions for your Chest Port Removal Activity: ??? Relax for the next 24 hours Diet: ??? Drink plenty of fluids. ??? Resume your regular diet Bandage: There is a sterile dressing consisting of small gauze with a clear dressing (Tegaderm or [id number]). This dressing should be left in place for 48 hours. If the clear dressing becomes loose you should place tape over the edges to secure it in place. No tub baths, swimming or whirlpools for 1 week. No showering for 48 hours. Note: If you have steri-strips beneath your dressing, simply allow them to fall off. Do not peel them off. There may be Perris-barrera (skin glue) also, allow this to flake off. Do not pick this off. Bathing: Do not take a shower until 48 hours after your port is removed; after this time you may shower with the dressing in place, then remove it and pat your skin dry. After 48 hours, we recommend that you cover the area with THE AQUA GUARD PROVIDED for 1 week while showering, facing away from the shower stream. You may use a bandaid to cover the site after the 48 hours are up if there is any drainage. No tub baths, whirlpools or swimming for one week following port removal. Pain: Apply ice bag to site (s) at 30 minute intervals (30 minutes on and 30 minutes off) for 24 hours?? . May use as needed for pain and/or bruising after 24 hours. When to call your healthcare provider: ??? If you notice bleeding from the incision on your chest, you should lie flat and apply firm pressure over the site for 10-15 minutes, keeping the site covered and call your doctor. If you are still bleeding after 10-15 minutes, reapply pressure, and have someone drive you to the nearest Emergency De partment, or call 911. ??? If you develop pain, redness, drainage or swelling at or around chest incision site. ??? If you develop a fever equal to or greater than 101 degrees Fahrenheit. When to call the Interventional Radiology Department: Please call with any questions or concerns. Ifit is during regular office hours, please call [phone]. If it is after regular office hours, oron weekends or holidays, please call [phone] and ask to speak to the Print Production Manager on callfor Interventional Radiology. You have received medication during your procedure to help lessen anxiety and keep you comfortable.These medications affect judgement and reaction time. We recommend that you do not drive, operate equipment, sign any important documents, or smoke unattended for 24 hours following your procedure. Because of the sedation, be careful on stairs, as you may be unsteady on your feet. You may resume your regular diet as tolerated. IV site -- slight redness, or tenderness is normal, you can use a warm compress. If tenderness and redness increases or foul drainage occurs, please contact your M. D. Revised 05/20/15 documented in this encounter Medications at Time of Discharge Medication Sig Dispensed Refills Start Date End Date CREON 24,000-76,000 TAKE 1 TO 2 300 capsule 5 10/27/2018 -120,000 unit Capsule, CAPSULES BY MOUTH Delayed 3 TIMES DAILY Release(E.C.)Indications: WITH MEALS AND 1 Exocrine pancreatic CAPSULE WITH insufficiency SNACKS. MAX 9 CAPS PER DAY. prochlorperazine Take 1 tablet by 30 tablet 5 06/06/2018 (COMPAZINE) 10 mg mouth every 6 TabletIndications: hours as needed Malignant neoplasm of head for Nausea. of pancreas, Drug-induced nausea and vomiting omeprazole (PRILOSEC) 40 Take 1 capsule by 90 capsule 3 05/0602/19/2019 mg Capsule, Delayed mouth daily for Release(E.C.)Indications: 360 days. Exocrine pancreatic insufficiency acetaminophen (TYLENOL) Take 2 tablets by 0 05/1205/19/2019 325 mg Tablet mouth every 6 hours as needed for Pain. documented as of this encounter Progress Notes Luana Snider RN - 01/13/2019 1:58 PM EDT [facility] Name: JACIEL SIERRA Date of : 1960 AGE: 58 y.o. Address: [address] [place] [address] (home) Mobile: Telephone Information: Referring Provider: Gigi Sosa REASON FOR VISIT: Mediport removal Order Questions Answers Where will study be performed? [facility] Radiology [120] Reason for exam and clinical history: pancreatic cancer, completed chemotherapy Exam/Procedure requested: mediport removal Is the patient on anticoagulant / anitplatelet therapy ? No Plan Planned procedure: Port explant (01/12/19939) Labs to be performed day of procedure: No labs (01/12/19939) Sedation: moderate (conscious sedation) (01/12/19939) Prophylactic antibiotic : None (01/12/19939) Contrast: No contrast (01/12/19939) Additional medications for procedure: Lidocaine (01/12/19939) Planned access site: Port site (01/12/19939) Position: Supine (01/12/19939) Consent: Pending (01/12/19939) No Known Allergies Pertinent PMH: Patient Active Problem List Diagnosis Code ??? Malignant neoplasm of head of pancreas C25.0 ??? Exocrine pancreatic insufficiency K86.81 ??? Pancreatic cancer C25.9 ??? Severe protein-calorie malnutrition E43 Pertinent PSH: Past Surgical History: Procedure Laterality Date ??? IR MEDIPORT PLACEMENT/EXCHANGE 06/16/2018 IR Mediport Placement / Exchange 06/16/2018 Abhijeet De La Rosa APRN [facility] INTERVENTIONL RAD ??? PRO ENDOSCOPIC US EXAM, MOMO N/A 04/04/2018 UPPER EUS- ENDOSCOPIC ULTRASOUND performed by Felipe Soto MD at [facility] ENDOSCOPY ? ? PRO ERCP BILIARY OR PANCREATIC DUCT STENT REMOVAL & EXCHANGE W/DIL&WIRE 04/16/2018 ERCP, W REMOVAL& EXCHANGE STENT, BILIARY/PANCREATIC DUCT performed by Mahamed Bro MD at [facility] ENDOSCOPY ??? PRO ERCP STENT PLACEMENT BILIARY OR PANCREATIC DUCT 04/04/2018 ERCP, W PLCMNT ENDOSCOPIC STENT BILIARY OR PANCREATIC DUCT performed by Felipe Soto MD at [facility] ENDOSCOPY ??? PRO ERCP, SPHINCTEROTOMY N/A 04/04/2018 ERCP W/SPHINCTEROTOMY/PAPILLOTOMY performed by Felipe Soto MD at [facility] ENDOSCOPY ??? PRO ERCP, W/REMOVAL STONE, ZAHIDA/PANCR DUCTS 04/16/2018 ERCP W/REMOVAL CALCULI/DEBRIS FROM BILARY/PANCREATIC DUCT(S) performed by Mahamed Bro MD at [facility] ENDOSCOPY ??? PRO ERCP,DIAGNOSTIC N/A 04/16/2018 ERCP performed by Mahamed Bro MD at [facility] ENDOSCOPY ??? PRO LAP, DIAGNOSTIC ABDOMEN N/A 04/23/2018 LAPAROSCOPY, DIAGNOSTIC, ABDOMEN (WRVU 5.14) performed by Lázaro Collazo MD at [facility] OSC ??? PRO UNLISTED PX PNCRS N/A 05/05/2018 ROBOTIC PANCREATECTOMY,WHIPPLE, PARTIAL GASTRECTOMY W/ PANCREATOJEJUNOSTOMY performed by Lázaro Collazo MD at [facility] MAIN OR Date/Procedure ?Meds given/comments 06/16/18: Mediport Placement Ancef 2g, Fentanyl??125mcg, Versed??2.5mg 01/13/19 Mediport removal Fentanyl 100 mcg IV Versed 2 mg IV Tolerated well ? Laboratory Results: Lab Results Component Value Date CREATININE 0.82 06/03/2018 Lab Results Component Value Date K 4.5 06/03/2018 Lab Results Component Value Date PLATELET 198 01/13/2019 Medications: Prior to Admission medications Medication Sig Start Date End Date Taking? Authorizing Provider CREON 24,000-76,000 -120,000 unit Capsule, Delayed Release(E.C.) TAKE 1 TO 2 CAPSULES BY MOUTH 3 TIMES DAILY WITH MEALS AND 1 CAPSULE WITH SNACKS. MAX 9 CAPS PER DAY. 10/27/18 Lázaro Collazo MD loperamide (IMODIUM A-D) 2 mg Tablet Take 2 mg by mouth 4 times daily as needed for Diarrhea. Maximum 16 mg in 24 hours PROVIDERMARILYNN prochlorperazine (COMPAZINE) 10 mg Tablet Take 1 tablet by mouth every 6 hours as needed for Nausea. Patient not taking: Reported on 09/15/2018 06/06/18 Gigi Sosa MD omeprazole (PRILOSEC) 40 mg Capsule, Delayed Release(E.C.) Take 1 capsule by mouth daily for 360 days. 05/19/18 05/14/19 Lázaro Collazo MD acetaminophen (TYLENOL) 325 mg Tablet Take 2 tablets by mouth every 6 hours as needed for Pain. Patient not taking: Reported on 09/01/2018 05/12/18 Katharina Bailey APRN Pia Downs RN - 01/08/2019 2:11 PM EDT [facility] Name: JACIEL SIERRA Date of : 1960 AGE: 58 y.o. Address: [address] [place] [address] Phone: There are no phone numbers on file. Mobile: Telephone Information: Referring Provider: Gigi Sosa REASON FOR VISIT: Order Questions Answers Where will study be performed? [facility] Radiology [120] Reason for exam and clinical history: pancreatic cancer, completed chemotherapy Exam/Procedure requested: mediport removal Is the patient on anticoagulant / anitplatelet therapy ? No No Known Allergies Pertinent PMH: Patient Active Problem List Diagnosis Code ??? Malignant neoplasm of head of pancreas C25.0 ??? Exocrine pancreatic insufficiency K86.81 ??? Pancreatic cancer C25.9 ??? Severe protein-calorie malnutrition E43 Pertinent PSH: Past Surgical History: Procedure Laterality Date ??? IR MEDIPORT PLACEMENT/EXCHANGE 06/16/2018 IR Mediport Placement / Exchange 06/16/2018 Abhijeet De La Rosa, [employer] [facility] INTERVENTIONL RAD ??? PRO ENDOSCOPIC US EXAM, ESOPH N/A 04/04/2018 UPPER EUS- ENDOSCOPIC ULTRASOUND performed by Felipe Soto MD at [facility] ENDOSCOPY ? ? PRO ERCP BILIARY OR PANCREATIC DUCT STENT REMOVAL & EXCHANGE W/DIL&WIRE 04/16/2018 ERCP, W REMOVAL& EXCHANGE STENT, BILIARY/PANCREATIC DUCT performed by Mahamed Bro MD at [facility] ENDOSCOPY ??? PRO ERCP STENT PLACEMENT BILIARY OR PANCREATIC DUCT 04/04/2018 ERCP, W PLCMNT ENDOSCOPIC STENT BILIARY OR PANCREATIC DUCT performed by Felipe Soto MD at [facility] ENDOSCOPY ??? PRO ERCP, SPHINCTEROTOMY N/A 04/04/2018 ERCP W/SPHINCTEROTOMY/PAPILLOTOMY performed by Felipe Soto MD at [facility] ENDOSCOPY ??? PRO ERCP, W/REMOVAL STONE, ZAHIDA/PANCR DUCTS 04/16/2018 ERCP W/REMOVAL CALCULI/DEBRIS FROM BILARY/PANCREATIC DUCT(S) performed by Mahamed Bro MD at [facility] ENDOSCOPY ??? PRO ERCP,DIAGNOSTIC N/A 04/16/2018 ERCP performed by Mahamed Bro MD at [facility] ENDOSCOPY ??? PRO LAP, DIAGNOSTIC ABDOMEN N/A 04/23/2018 LAPAROSCOPY, DIAGNOSTIC, ABDOMEN (WRVU 5.14) performed by Lázaro Collazo MD at [facility] OSC ??? PRO UNLISTED PX PNCRS N/A 05/05/2018 ROBOTIC PANCREATECTOMY,WHIPPLE, PARTIAL GASTRECTOMY W/ PANCREATOJEJUNOSTOMY performed by Lázaro Collazo MD at [facility] MAIN OR Past Surgical History: Procedure Laterality Date ??? PRO ENDOSCOPIC US EXAM, ESOPH N/A 04/04/2018 ?? UPPER EUS- ENDOSCOPIC ULTRASOUND performed by Felipe Soto MD at [facility] ENDOSCOPY ? ? PRO ERCP BILIARY OR PANCREATIC DUCT STENT REMOVAL & EXCHANGE W/DIL&WIRE ?? 04/16/2018 ?? ERCP, W REMOVAL& EXCHANGE STENT, BILIARY/PANCREATIC DUCT performed by Mahamed Bro MD [facility] ENDOSCOPY ??? PRO ERCP STENT PLACEMENT BILIARY OR PANCREATIC DUCT ?? 04/04/2018 ?? ERCP, W PLCMNT ENDOSCOPIC STENT BILIARY OR PANCREATIC DUCT performed by Felipe Soto MD [facility] ENDOSCOPY ??? PRO ERCP, SPHINCTEROTOMY N/A 04/04/2018 ?? ERCP W/SPHINCTEROTOMY/PAPILLOTOMY performed by Felipe Soto MD at [facility] ENDOSCOPY ??? PRO ERCP, W/REMOVAL STONE, ZAHIDA/PANCR DUCTS ?? 04/16/2018 ?? ERCP W/REMOVAL CALCULI/DEBRIS FROM BILARY/PANCREATIC DUCT(S) performed by Mahamed Bro MD [facility] ENDOSCOPY ??? PRO ERCP,DIAGNOSTIC N/A 04/16/2018 ?? ERCP performed by Mahamed Bro MD at [facility] ENDOSCOPY ??? PRO LAP, DIAGNOSTIC ABDOMEN N/A 04/23/2018 ?? LAPAROSCOPY, DIAGNOSTIC, ABDOMEN (WRVU 5.14) performed by Lázaro Collazo MD at [facility] OSC ??? PRO UNLISTED PX PNCRS N/A 05/05/2018 ?? ROBOTIC PANCREATECTOMY,WHIPPLE, PARTIAL GASTRECTOMY W/ PANCREATOJEJUNOSTOMY performed by Lázaro Collazo MD at [facility] MAIN OR ? Date/Procedure Meds given/comments 06/16/18: Mediport Placement Ancef 2g, Fentanyl 125mcg, Versed 2.5mg ? Laboratory Results: Lab Results Component Value Date CREATININE 0.82 06/03/2018 Lab Results Component Value Date K 4.5 06/03/2018 Lab Results Component Value Date PLATELET 278 06/03/2018 Medications: Prior to Admission medications Medication Sig Start Date End Date Taking? Authorizing Provider CREON 24,000-76,000 -120,000 unit Capsule, Delayed Release(E.C.) TAKE 1 TO 2 CAPSULES BY MOUTH 3 TIMES DAILY WITH MEALS AND 1 CAPSULE WITH SNACKS. MAX 9 CAPS PER DAY. 10/27/18 Lázaro Collazo MD loperamide (IMODIUM A-D) 2 mg Tablet Take 2 mg by mouth 4 times daily as needed for Diarrhea. Maximum 16 mg in 24 hours MARILYNN COLLADO prochlorperazine (COMPAZINE) 10 mg Tablet Take 1 tablet by mouth every 6 hours as needed for Nausea. Patient not taking: Reported on 09/15/2018 06/06/18 Gigi Sosa MD omeprazole (PRILOSEC) 40 mg Capsule, Delayed Release(E.C.) Take 1 capsule by mouth daily for 360 days. 05/19/18 05/14/19 Lázaro Collazo MD acetaminophen (TYLENOL) 325 mg Tablet Take 2 tablets by mouth every 6 hours as needed for Pain. Patient not taking: Reported on 09/01/2018 05/12/18 Katharina Bailey APRN documented in this encounter H&P Notes Wes Cooney - 01/13/2019 12:23 PM EDT INTERVENTIONAL RADIOLOGY FOCUSED H&P: Procedure: Planned procedure: Port explant The patient's history and physical exam have been reviewed and completed. There has been no intervalchange from that of the pre-operative history and physical exam done within the last 30 days. Physical Exam: Cardiovascular: Regular, Normal Pulmonary: Breath sounds clear to auscultation The planned procedure (and sedation plan if appropriate) , its benefits and risks, and alternatives were discussed with the patient. The patient consented to the procedure. PRE-SEDATION ASSESSMENT: Sedation Plan: moderate (conscious sedation) ASA: 2: Patient with mild systemic disease Mallampati: II: tonsillar pillars are blocked by the tongue Confirm NPO status: Yes History of anesthetic complications: No Current medications reviewed: Yes Allergies reviewed: Yes Source Note - Solitario Koenig PA - 01/12/2019 9:43 AM EDT Images from the original note were not included. INTERVENTIONAL RADIOLOGY FOCUSED H&P and PRE-PROCEDURE NOTE: PCP: Corrie Pacheco APRN Referring Provider: Gigi H Ripple Planned Procedure: Planned procedure: Port explant Procedure Indication: Pancreatic cancer, discontinue durable long-term venous access Order Questions Answers Where will study be performed? [facility] Radiology [120] Reason for exam and clinical history: pancreatic cancer, completed chemotherapy Exam/Procedure requested: mediport removal Is the patient on anticoagulant / anitplatelet therapy ? No Presenting Diagnosis/ Complaint: Jaciel Sierra is a 58 y.o. male with past medical history significant for pancreatic cancer who has completed therapy at this time and is referred to the IR service forport explant. Placed 06/16/18. Past Medical/Surgical History: Patient Active Problem List Diagnosis Code ??? Malignant neoplasm of head of pancreas C25.0 ??? Exocrine pancreatic insufficiency K86.81 ??? Pancreatic cancer C25.9 ??? Severe protein-calorie malnutrition E43 No past medical history on file. Past Surgical History: Procedure Laterality Date ??? IR MEDIPORT PLACEMENT/EXCHANGE 06/16/2018 IR Mediport Placement / Exchange 06/16/2018 Abhijeet De La Rosa, [employer] [facility] INTERVENTIONL RAD ??? PRO ENDOSCOPIC US EXAM, ESOPH N/A 04/04/2018 UPPER EUS- ENDOSCOPIC ULTRASOUND performed by Felipe Soto MD at [facility] ENDOSCOPY ? ? PRO ERCP BILIARY OR PANCREATIC DUCT STENT REMOVAL & EXCHANGE W/DIL&WIRE 04/16/2018 ERCP, W REMOVAL& EXCHANGE STENT, BILIARY/PANCREATIC DUCT performed by Mahamed Bro MD at [facility] ENDOSCOPY ??? PRO ERCP STENT PLACEMENT BILIARY OR PANCREATIC DUCT 04/04/2018 ERCP, W PLCMNT ENDOSCOPIC STENT BILIARY OR PANCREATIC DUCT performed by Felipe Soto MD at [facility] ENDOSCOPY ??? PRO ERCP, SPHINCTEROTOMY N/A 04/04/2018 ERCP W/SPHINCTEROTOMY/PAPILLOTOMY performed by Felipe Soto MD at [facility] ENDOSCOPY ??? PRO ERCP, W/REMOVAL STONE, ZAHIDA/PANCR DUCTS 04/16/2018 ERCP W/REMOVAL CALCULI/DEBRIS FROM BILARY/PANCREATIC DUCT(S) performed by Mahamed Bro MD at [facility] ENDOSCOPY ??? PRO ERCP,DIAGNOSTIC N/A 04/16/2018 ERCP performed by Mahamed Bro MD at [facility] ENDOSCOPY ??? PRO LAP, DIAGNOSTIC ABDOMEN N/A 04/23/2018 LAPAROSCOPY, DIAGNOSTIC, ABDOMEN (WRVU 5.14) performed by Lázaro Collazo MD at [facility] OSC ??? PRO UNLISTED PX PNCRS N/A 05/05/2018 ROBOTIC PANCREATECTOMY,WHIPPLE, PARTIAL GASTRECTOMY W/ PANCREATOJEJUNOSTOMY performed by Lázaro Collazo MD at [facility] MAIN OR Medications: Current Outpatient Medications on File Prior to Encounter Medication Sig Dispense Refill ??? CREON 24,000-76,000 -120,000 unit Capsule, Delayed Release(E.C.) TAKE 1 TO 2 CAPSULES BY MOUTH 3TIMES DAILY WITH MEALS AND 1 CAPSULE WITH SNACKS. MAX 9 CAPS PER DAY. 300 capsule 5 ??? loperamide (IMODIUM A-D) 2 mg Tablet Take 2 mg by mouth 4 times daily as needed for Diarrhea. Maximum 16 mg in 24 hours ??? prochlorperazine (COMPAZINE) 10 mg Tablet Take 1 tablet by mouth every 6 hours as needed for Nausea. (Patient not taking: Reported on 09/15/2018) 30 tablet 5 ??? omeprazole (PRILOSEC) 40 mg Capsule, Delayed Release(E.C.) Take 1 capsule by mouth daily for 360days. 90 capsule 3 ??? acetaminophen (TYLENOL) 325 mg Tablet Take 2 tablets by mouth every 6 hours as needed for Pain. (Patient not taking: Reported on 09/01/2018) No current facility-administered medications on file prior to encounter. Allergies: Patient has no known allergies. Social History and Habits: Social History Socioeconomic History ??? Marital status: Spouse name: Not on file ??? Number of children: Not on file ??? Years of education: Not on file ??? Highest education level: Not on file Occupational History ??? Not on file Social Needs ??? Financial resource strain: Not on file ??? Food insecurity: Worry: Not on file Inability: Not on file ??? Transportation needs: Medical: Not on file Non-medical: Not on file Tobacco Use ??? Smoking status: Never Smoker ??? Smokeless tobacco: Never Used Substance and Sexual Activity ??? Alcohol use: No Frequency: Never Comment: 2-3X/month ??? Drug use: No ??? Sexual activity: Not on file Lifestyle ??? Physical activity: Days per week: Not on file Minutes per session: Not on file ??? Stress: Not on file Relationships ??? Social connections: Talks on phone: Not on file Gets together: Not on file Attends mormonism service: Not on file Active member of club or organization: Not on file Attends meetings of clubs or organizations: Not on file Relationship status: Not on file ??? Intimate partner violence: Fear of current or ex partner: Not on file Emotionally abused: Not on file Physically abused: Not on file Forced sexual activity: Not on file Other Topics Concern ??? Not on file Social History Narrative ??? Not on file Significant Family History: No family history on file. Pertinent ROS: as per HPI Labs: Lab Results Component Value Date WBC 5.4 06/03/2018 HCT 35.4 (L) 06/03/2018 PLATELET 278 06/03/2018 BUN 22 (H) 06/03/2018 CREATININE 0.82 06/03/2018 ALKPHOS 75 06/03/2018 AST 25 06/03/2018 ALBUMIN 3.8 06/03/2018 BILIDIR >10.0 (H) 04/23/2018 BILITOT 1.1 06/03/2018 ALT 37 06/03/2018 PROT 7.3 06/03/2018 Imaging: Physical Exam: Pending (to be performed in angio the day of procedure) ASA: Pending (to be assessed in angio the day of procedure) Mallampati Class: Pending (to be assessed in angio the day of procedure) Assessment: 58 y.o. male with pancreatic cancer presenting to IR for port explant. Plan: Plan Planned procedure: Port explant Labs to be performed day of procedure: No labs Sedation: moderate (conscious sedation) Prophylactic antibiotic : None Contrast: No contrast Additional medications for procedure: Lidocaine Planned access site: Port site Position: Supine Consent: Pending 01/12/2019 Solitario Koenig PA - 01/12/2019 9:43 AM EDT Images from the original note were not included. INTERVENTIONAL RADIOLOGY FOCUSED H&P and PRE-PROCEDURE NOTE: PCP: Corrie Pacheco APRN Referring Provider: Gigi Sosa Planned Procedure: Planned procedure: Port explant Procedure Indication: Pancreatic cancer, discontinue durable long-term venous access Order Questions Answers Where will study be performed? [facility] Radiology [120] Reason for exam and clinical history: pancreatic cancer, completed chemotherapy Exam/Procedure requested: mediport removal Is the patient on anticoagulant / anitplatelet therapy ? No Presenting Diagnosis/ Complaint: Jaciel Sierra is a 58 y.o. male with past medical history significant for pancreatic cancer who has completed therapy at this time and is referred to the IR service forport explant. Placed 06/16/18. Past Medical/Surgical History: Patient Active Problem List Diagnosis Code ??? Malignant neoplasm of head of pancreas C25.0 ??? Exocrine pancreatic insufficiency K86.81 ??? Pancreatic cancer C25.9 ??? Severe protein-calorie malnutrition E43 No past medical history on file. Past Surgical History: Procedure Laterality Date ??? IR MEDIPORT PLACEMENT/EXCHANGE 06/16/2018 IR Mediport Placement / Exchange 06/16/2018 Abhijeet De La Rosa, [employer] INTERVENTIONL RAD ??? PRO ENDOSCOPIC US EXAM, ESOPH N/A 04/04/2018 UPPER EUS- ENDOSCOPIC ULTRASOUND performed by Felipe Soto MD at [facility] ENDOSCOPY ? ? PRO ERCP BILIARY OR PANCREATIC DUCT STENT REMOVAL & EXCHANGE W/DIL&WIRE 04/16/2018 ERCP, W REMOVAL& EXCHANGE STENT, BILIARY/PANCREATIC DUCT performed by Mahamed Bro MD at [facility] ENDOSCOPY ??? PRO ERCP STENT PLACEMENT BILIARY OR PANCREATIC DUCT 04/04/2018 ERCP, W PLCMNT ENDOSCOPIC STENT BILIARY OR PANCREATIC DUCT performed by Felipe Soto MD at [facility] ENDOSCOPY ??? PRO ERCP, SPHINCTEROTOMY N/A 04/04/2018 ERCP W/SPHINCTEROTOMY/PAPILLOTOMY performed by Felipe Soto MD at [facility] ENDOSCOPY ??? PRO ERCP, W/REMOVAL STONE, ZAHIDA/PANCR DUCTS 04/16/2018 ERCP W/REMOVAL CALCULI/DEBRIS FROM BILARY/PANCREATIC DUCT(S) performed by Mahamed Bro MD at [facility] ENDOSCOPY ??? PRO ERCP,DIAGNOSTIC N/A 04/16/2018 ERCP performed by Mahamed Bro MD at [facility] ENDOSCOPY ??? PRO LAP, DIAGNOSTIC ABDOMEN N/A 04/23/2018 LAPAROSCOPY, DIAGNOSTIC, ABDOMEN (WRVU 5.14) performed by Lázaro Collazo MD at [facility] OSC ??? PRO UNLISTED PX PNCRS N/A 05/05/2018 ROBOTIC PANCREATECTOMY,WHIPPLE, PARTIAL GASTRECTOMY W/ PANCREATOJEJUNOSTOMY performed by Lázaro Collazo MD at [facility] OR Medications: Current Outpatient Medications on File Prior to Encounter Medication Sig Dispense Refill ??? CREON 24,000-76,000 -120,000 unit Capsule, Delayed Release(E.C.) TAKE 1 TO 2 CAPSULES BY MOUTH 3TIMES DAILY WITH MEALS AND 1 CAPSULE WITH SNACKS. MAX 9 CAPS PER DAY. 300 capsule 5 ??? loperamide (IMODIUM A-D) 2 mg Tablet Take 2 mg by mouth 4 times daily as needed for Diarrhea. Maximum 16 mg in 24 hours ??? prochlorperazine (COMPAZINE) 10 mg Tablet Take 1 tablet by mouth every 6 hours as needed for Nausea. (Patient not taking: Reported on 09/15/2018) 30 tablet 5 ??? omeprazole (PRILOSEC) 40 mg Capsule, Delayed Release(E.C.) Take 1 capsule by mouth daily for 360days. 90 capsule 3 ??? acetaminophen (TYLENOL) 325 mg Tablet Take 2 tablets by mouth every 6 hours as needed for Pain. (Patient not taking: Reported on 09/01/2018) No current facility-administered medications on file prior to encounter. Allergies: Patient has no known allergies. Social History and Habits: Social History Socioeconomic History ??? Marital status: Spouse name: Not on file ??? Number of children: Not on file ??? Years of education: Not on file ??? Highest education level: Not on file Occupational History ??? Not on file Social Needs ??? Financial resource strain: Not on file ??? Food insecurity: Worry: Not on file Inability: Not on file ??? Transportation needs: Medical: Not on file Non-medical: Not on file Tobacco Use ??? Smoking status: Never Smoker ??? Smokeless tobacco: Never Used Substance and Sexual Activity ??? Alcohol use: No Frequency: Never Comment: 2-3X/month ??? Drug use: No ??? Sexual activity: Not on file Lifestyle ??? Physical activity: Days per week: Not on file Minutes per session: Not on file ??? Stress: Not on file Relationships ??? Social connections: Talks on phone: Not on file Gets together: Not on file Attends mormonism service: Not on file Active member of club or organization: Not on file Attends meetings of clubs or organizations: Not on file Relationship status: Not on file ??? Intimate partner violence: Fear of current or ex partner: Not on file Emotionally abused: Not on file Physically abused: Not on file Forced sexual activity: Not on file Other Topics Concern ??? Not on file Social History Narrative ??? Not on file Significant Family History: No family history on file. Pertinent ROS: as per HPI Labs: Lab Results Component Value Date WBC 5.4 06/03/2018 HCT 35.4 (L) 06/03/2018 PLATELET 278 06/03/2018 BUN 22 (H) 06/03/2018 CREATININE 0.82 06/03/2018 ALKPHOS 75 06/03/2018 AST 25 06/03/2018 ALBUMIN 3.8 06/03/2018 BILIDIR >10.0 (H) 04/23/2018 BILITOT 1.1 06/03/2018 ALT 37 06/03/2018 PROT 7.3 06/03/2018 Imaging: Physical Exam: Pending (to be performed in angio the day of procedure) ASA: Pending (to be assessed in angio the day of procedure) Mallampati Class: Pending (to be assessed in angio the day of procedure) Assessment: 58 y.o. male with pancreatic cancer presenting to IR for port explant. Plan: Plan Planned procedure: Port explant Labs to be performed day of procedure: No labs Sedation: moderate (conscious sedation) Prophylactic antibiotic : None Contrast: No contrast Additional medications for procedure: Lidocaine Planned access site: Port site Position: Supine Consent: Pending 01/12/2019 documented in this encounter Nursing Notes Luana Snider RN - 01/13/2019 1:42 PM EDT To procedure room 2 via stretcher at 1330. Remains on stretcher, supine. All monitors, O2, safety strap in place. Med's per protocol. documented in this encounter Plan of Treatment Upcoming Encounters Date Type Specialty Care Team Description 02/23/2022 Office Visit Hematology and Oncology Gigi Sosa MD [facility] [place] [address] Ebonie Gordon, DISPLAYER MERCHANDISE [address] [place] [address] [place] [address] documented as of this encounter Procedures Procedure Name Priority Date/Time Associated Diagnosis Comme nts IR MEDIPORT REMOVAL Routine 01/13/2019 2:10 PM Malignant neopl asm Results for this EDT of head of pancreas procedur e are in the results section. documented in this encounter Results IR Mediport Removal (01/13/2019 2:10 PM EDT) Anatomical Region Laterality Modality X-Ray Angiography Specimen (Source) Anatomical Location Collection Method / Collectio n Time Received Time / Laterality Volume Narrative 01/21/2019 7:59 AM EDT INTERVENTIONAL RADIOLOGY PROCEDURE NOTE Procedure: Removal of RIJ chest port Indication for Procedure: 58 y.o. male w ith past medical history significant for pancreatic cancer who nicholas s completed therapy at this time and is referred to the IR service for po rt explant. Consent: After discussing the risks (inc luding infection, hemorrhage, damage to surrounding structures) and be nefits, the patient consented to the procedure. Method of Sedation: Due to the painful n ature of the procedure, patient received split doses of intravenous fent anyl and versed from the IR nurse while pulse, pressure, and oxygen satura tion were continuously monitored. Technique: Prior to beginning the proced ure, a standard time out Moment of Truth was performed to confirm all k ey aspects (including the patient's identity, informed consent, ut dical record number, allergies, planned procedure and laterality if appr opriate) all of which were correct. The right chest over the port w as prepped sterile. Maximum sterile barrier technique was used throu gh out the procedure. The skin anesthetized with 1% lidocaine as well a s bupivacaine 0.25% with epinephrine. Blunt and sharp dissection used to remove, intact, the intact lumen port. Removal of the port reservoi r, hub, and catheter from the patient were confirmed by their identifi cation outside the patient. The wound was copiously irrigated. The pocke t was closed using a two layer technique with absorbable suture materia l (2-0 vicryl deep interrupted and 4-0 vicryl running subcuticular). Skin c losed with indermil. Medications: Lidocaine 1% <10 mL SQ, BUp ivacaine-EPINEPHrine 0.25 %-1:200,000 ??< 20 mL SQ, Versed 2 mg IV , Fentanyl 100 mcg IV. Antibiotic Prophylaxis: None EBL: <5 cc Complications: ??No immediate Impression: ??Removal of chest port as d escribed above Procedure performed by CORNELIO Garrett RN I, Ezra Vela APRN, was present duri ng the intraservice time as documented by the IR Nurse. Dr. Jacome was not present for procedure . Gigi Sosa MD IMG IR ORDERABLES Platelet count (01/13/2019 11:56 AM EDT) athologist Signature Platelets 198 145 - 357 [facility] x10(3)/[facility] LABORATORY Plat Immature 1.0 0.0 - 7.4 KAYY JOSELINE % % [facility] Comment: Limitation of the Immature Platelet Frac tion (IPF)-May be less reliable when the platelet count is less than 04n634/u L due to statistical imprecision. The IPF [...] in a decreased state of production. References: [employer] The Clinical Value of the Immature Platelet Fraction (IPF) in Cell Recovery Document Number 10-1143 10/2010 [employer] The Role of the Imm ature Platelet Fraction (IPF) in the Differential Diagnosis of Thrombocytopen ia, Document [id number] V009/14/13 P009/16 Specimen Anatomical Collection Method Collection Time Receive d Time (Source) Location / / Volume Laterality Blood specimen 01/13/2019 11:56 9 (specimen) AM EDT 12:07 PM EDT Resulting Agency Comment Spec In Lab Gigi Sosa MD HEMATOLOGY ORDERABLES Performing Organization Address City/State/ZIP Code Phon [place] [address] documented in this encounter Visit Diagnoses Diagnosis Malignant neoplasm of head of pancreas documented in this encounter Administered Medications Inactive Administered Medications - up to 3 most recent administrations Medication Order MAR Action Action Date Dose Rate Site fentaNYL 50 mcg/mL multi-dose Given 01/13/2019 1:53 PM EDT 25 mc g injection 25-50 mcg, Intravenous, EVERY 5 MIN PRN, Starting on Sat01/13/19 at 1227, Until Sat01/13/19 at 1400, Pain, per unit protocol, - Start dose 50 mcg (reduce dose to 25 mcg if history of sedation sensitivity). - Titration dose 25-50 mcg IV, (based on patient response) every 3 minutes PRN, to maintain procedural pain less than 2 per pain Scale. Maximum dose: 50 mcg/dose, 250 mcg/hour For use in Interventional Radiology (IR) only for procedural sedation with direct provider supervision and verbal order., Angio/IR (Intra-Procedure), Routine Given 01/13/2019 1:50 PM EDT 25 mcg Given 01/13/2019 1:45 PM EDT 25 mcg lidocaine (XYLOCAINE) 10 mg/mL (1 %) injection Given 0 01/13/2019 1:51 PM EDT 10 mg 10 mg 10 mg, Subcutaneous, ONCE, 1 dose, On Sat01/13/19 at 1245, For use in Interventional Radiology (IR) only for procedure with direct provider supervision and verbal order., Angio/IR (Intra-Procedure), Routine lidocaine-EPINEPHrine 1 %-1:100,000 inje ction Given 01/13/2019 1:55 PM EDT 20 mLs 1 dose, Starting on Sat01/13/19 at 1327, Until Sat01/13/19 at 1355, LUANA SNIDER: guevarainet override midazolam (PF) (VERSED) multi-dose injection Given 02/2019 1:53 PM EDT 0.5 mg 0.5-1 mg 0.5-1 mg, Intravenous, EVERY 3 MIN PRN, Starting on Sat01/13/19 at 1227, Until Sat01/13/19 at 1400, Sleep, - Start dose; 1 mg (Reduce dose to 0.5 mg if history of sedation sensitivity). - Titration dose: 0.5 mg - 1 mg (based on patient response) every 3 minutes PRN to obtain RASS score of -3. Maximum dose: 1 mg per dose, 5 mg/hour. For use in Interventional Radiology (IR) only for procedural sedation with direct provider supervision and verbal order., Angio/IR (Intra-Procedure), Routine Given 01/13/2019 1:50 PM EDT 0.5 mg Given 01/13/2019 1:45 PM EDT 0.5 mg sodium chloride 0.9 % (flush) flush 5 mL Given 01/13/2019 12:45 PM EDT 5 mLs 5 mL, Intravenous, EVERY 12 HOURS, First dose on Sat01/13/19 at 1245, Until Discontinued, Angio/IR (Day of Procedure), Routine sodium chloride 0.9% infusion New Bag 01/13/2019 12:45 PM EDT 1,000 mLs 100 mL/hr 1,000 mL, at 100 mL/hr, Intravenous, CONTINUOUS, Starting on Sat01/13/19 at 1245, Until Sat01/13/19 at 1428, Angio/IR (Day of Procedure) documented in this encounter Care Teams Labor Relations Consultant Relationship Specialty Start Date End Date Corrie Pacheco APRN PCP - General Family Medicine 04/04/[address] [place] [place] [address] documented as of this encounter
--- OUTSIDE RECORDS SUMMARY | 2022-02-23 01:43 | XMS_ITS | Encounter Summary ---
:1960 Author Organization [facility] [place] [address] Care Team Providers Name Role Phone Corrie Pacheco APRN Primary Care Provider Reason for Visit Reason Comments Chemotherapy Cycle 12, Day 1; FOLIRINOX Treatment/Therapy Plan Authorization (Routine) - Closed Specialty Diagnoses / Procedures Referred By Contact Refer red To Contact Hematology and Diagnoses Malignant neoplasm of head of pancreas Gigi Sosa St[facility] Hem Onc Oncology Procedures TC APREPITANT, 1 MG, INJECTION TC PALONOSETRON HCL, 25MCG, INJECTION (ALOXI) TC OXALIPLATIN, 0.5MG, INJECTION (ELOXATIN) TC IRINOTECAN, 20MG (CAMPTOSAR) TC FLOUROURACIL, 500MG MD Infusion [address] ONCOLOGY [address] [place] [address] Referral ID Status Reason Start Date Expiration Date Visits Requ ested Visits Authorized [id number] Closed 06/06/2018 06/06/2019 30 30 Encounter Details Date Type Department Care Team Description 11/24/2018 Infusion Hematology Oncology at [facility] lignant neoplasm of head [facility] of [address] [phone] Social History Tobacco Use Types Packs/Day Years [...] place to sleep or slept in a long-term (including now)? Sex Assigned at Date Recorded Male 07/24/2020 7:58 PM EDT documented as of this encounter Progress Notes Suraj Valero RN - 11/24/2018 8:30 AM EDT INFUSION THERAPY ADMINISTRATION NOTES DIAGNOSIS: Pancreatic cancer CYCLE #12, Day 1 REASON FOR VISIT: FOLFIRONOX infusion and initiation of continunous home 5FU infusion via CADD pump provided by [employer] SUBJECTIVE Jaciel offers no complaints. OBJECTIVE LAB DATA: Labs reviewed by provider in clinic and found adequate for treatment. Pre administration: Chemotherapy orders independently verified for drug name, route, and dosage per patient's height, weight and BSA by SURAJ VALERO RN and Rick Mercer RPh. At time of administration Patient identity verified using patient's name and date of at the chair/bedside by double RN check just prior to initiating the patient's home infusion chemotherapy via CADD pump provided by [employer]. Fluorouracil 4,440 mg over 46 hours, IV via CADD pump. Amount infused verified by double RN check after 15 minutes and appropriate amount had infused. REACTIONS (DESCRIPTION, TIME, INTERVENTION AND EFFECTIVENESS) none ASSESSMENT Jaciel was awake, alert and tolerated treatment well. PLAN Return to clinic on 11/26/18 @ 1050 for disconnect and hydration. documented in this encounter Plan of Treatment Upcoming Encounters Date Type Specialty Care Team Description 02/23/2022 Office Visit Hematology and Oncology Gigi Sosa MD [facility] [place] [address] [place] [address] documented as of this encounter Procedures Procedure Name Priority Date/Time Associated Diagnosis Comme nts LAB SCAN 11/24/2018 12:00 AM Results for this EDT procedure are i n the results section . documented in this encounter Results SCAN DOC: LAB (11/24/2018 12:00 AM EDT) Narrative 11/24/2018 12:00 AM EDT This result has an attachment that is no t available. Ordered by an unspecified provider. Scanning Provider MEDIA MGR SCAN EXT ORDR/RSLT documented in this encounter Visit Diagnoses Diagnosis Malignant neoplasm of head of pancreas documented in this encounter Administered Medications Inactive Administered Medications - up to 3 most recent administrations Medication Order MAR Action Action Date Dose Rate Site aprepitant (CINVANTI) injection Given 11/24/2018 8:40 AM EDT 130 mg Emul 130 mg 130 mg, Intravenous, ONCE, 1 dose, On 11/24/18 at 0845, Alternative administration of IV push over 2 minutes is a recommendation from the medical specialist., Routine atropine injection 0.5 mg Given 11/24/2018 10:54 AM EDT 0.5 mg 0.5 mg, Intravenous, ONCE, 1 dose, On Sat11/24/18 at 0845, Administer prior to IRINOtecan, Routine dexamethasone (DECADRON) tablet 8 mg Given 11/24/2018 8:47 AM EDT 8 mg 8 mg, Oral, ONCE, 1 dose, On Sat11/24/18 at 0845, Administer prior to chemotherapy, Routine fluorouracil (ADRUCIL) 4,272 mg in Given 11/24/2018 12:50 PM EDT 4,272 mg 3 mL/hr sodium chloride 0.9% 138 mL chemo infusion 4,272 mg (2,400 mg/m2/dose ? 1.78 m2 Treatment Plan BSA from Recorded weight), Intravenous, ONCE, 1 dose, On Sat11/24/18 at 1215, Administer over 46 Hours, Warning Vesicant/Irritant Medication To be infused via an ambulatory infusion CADD Legacy Plus pump continuously IV at 3 mL/hr for 46 hours. Pump contains a 46 hour supply and provides a daily dose of 1200 mg/m2/day = 2400 mg/m2 IV over 46 hours with 12 mL of overfill in bag. IRINOtecan (CAMPTOSAR) 260 mg in New Bag 11/24/2018 10:57 AM E DT 260 mg 342 mL/hr dextrose 5% 513 mL chemo infusion 260 mg, Intravenous, ONCE, 1 dose, On Sat11/24/18 at 0945, Administer over 90 Minutes, Dose Ordered = 267 mg (150 mg/m2). Pharmacist rounded dose per procedure. ondansetron (ZOFRAN) injection 8 mg Given 11/24/2018 8:40 AM EDT 8 mg 8 mg, Intravenous, ONCE, 1 dose, On Sat11/24/18 at 0845 OXALIplatin (ELOXATIN) 150 mg in New Bag 11/24/2018 9:18 AM ED T 150 mg 197.6 mL/hr dextrose 5% 280 mL chemo infusion 150 mg, Intravenous, ONCE, 1 dose, On Sat11/24/18 at 0945, Administer over 85 Minutes, Administer first. Compatible with dextrose-containing solution only. , Warning Vesicant/Irritant Medication , Dose Ordered = 151 mg (85 mg/m2). Pharmacist rounded dose per procedure. documented in this encounter Care Teams Crop Farmers Relationship Specialty Start Date End Date Corrie Pacheco APRN PCP - General Family Medicine 04/04/[address] [place] [address] documented as of this encounter
--- OUTSIDE RECORDS SUMMARY | 2022-02-23 01:43 | XMS_ITS | Encounter Summary ---
:1960 Author Organization [facility] [place] [address] Care Team Providers Name Role Phone Corrie Pacheco APRN Primary Care Provider Encounter Details Date Type Department Care Team Description 09/01/2018 Office Visit Hematology/Oncology Fouzia Romo Mali gnant neoplasm of at [facility] [employer] pancreas, unspecified [address] [place] [address] [place] [address] RADIATION ONCOLOGY [phone] [place] [id number] Social History Tobacco Use Types Packs/Day Years [...] Sign Reading Time Taken Comments Blood Pressure 114/66 09/01/2018 8:12 AM EDT Pulse 59 09/01/2018 8:12 AM EDT Temperature 36.8 ??C (98.2 ??F) 09/01/2018 8:12 AM EDT Respiratory Rate 18 09/01/2018 8:12 AM EDT Oxygen Saturation 100% 09/01/2018 8:12 AM EDT Inhaled Oxygen Concentration - - Weight 67.5 kg (148 lb 12.8 oz) 09/01/2018 8:12 AM EDT Height 167.6 cm (5' 6) 09/01/2018 8:12 AM EDT Body Mass Index 24.02 09/01/2018 8:12 AM EDT documented in this encounter Patient Instructions Patient InstructionsFouzia Romo APRN - 09/01/2018 8:00 AM EDT He will return in 2 weeks with labs prior for his next infusion. documented in this encounter Progress Notes Fouzia Romo APRN - 09/01/2018 8:00 AM EDT Patient ID: Jaciel Combs is a 57 y.o. male. Problem List: 1. Pancreatic cancer, mixed acinar-ductal, resectable; pT2N0 A. Presented with jaundice and abdominal [...] and may- catenin (negative for nuclear staining). [id number] is retained in lesional cells. ??Overall, the [...] No evidence of acinar differentiation is seen. HPI Mr. Combs is seen in f/u of pancreatic cancer. The history is summarized above. On 05/05/18 he underwent a robotic Whipple procedure by Dr. Collazo. On presentation today, he comes to clinic feeling relatively well. He was more aggressive in treating his diarrhea so he did not experience as much. He states that his neuropathy is lasting longer in his hands mostly but also in his feet. He feels that it lasts nearly two weeks. He is being followed by our bioinformaticist. He is active - out hiking with his dog. 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 HENT: Negative. Respiratory: Negative. Cardiovascular: Negative. Gastrointestinal: Negative for abdominal pain, constipation, diarrhea and nausea. Genitourinary: Negative. Musculoskeletal: Negative. Skin: Negative for color change. Neurological: Positive for numbness. Numbness mostly in fingertips and some in toes. Hematological: Negative. Psychiatric/Behavioral: Negative. BP 114/66 (Patient Position: Sitting) Pulse 59 Temp 36.8 ??C (98.2 ??F) (Oral) Resp 18 Ht 167.6 cm (5' 6) Wt 67.5 kg (148 lb 12.8 oz) SpO2 100% BMI 24.02 kg/m?? Wt Readings from Last 3 Encounters: 09/01/18 67.5 kg (148 lb 12.8 oz) 08/18/18 67.5 kg (148 lb 12.8 oz) 08/15/18 65 kg (143 lb 6.4 oz) Objective: Physical Exam Constitutional: He is oriented [...] His behavior is normal. Vitals reviewed. Labs: 08/15/2018 CBC: WBC 5.78 hemoglobin 11.8 platelet 181 CMP: Sodium 141 potassium 3.2 BUN 9 creatinine 0.64 glucose 96 calcium 8.6 total bili 0.3 AST 22 ALT32 alk phos 91 total protein 6.6 albumin 2.8 Iron studies not repeated CA 19-9 06/06/18 3 04/15/18 0.7 ONCBCN ONCOLOGY (AMB) 08/05/2018 Day, Cycle Day 1, Cycle 4 fluorouracil (ADRUCIL) IV 2,400 mg/m2/dose = 4,440 mg IRINOtecan (CAMPTOSAR) IV 260 mg OXALIplatin (ELOXATIN) IV 150 mg Assessment and Plan: Mr. Combs is a 57 yo male seen for evaluation and management of pancreatic cancer. He presented in late 03/[address] was done at [facility] and showed intra and extrahepatic biliary ductal dilatation and question of a mass in the duodenum or head of the pancreas. He was referred to GI at [facility] and on 04/04/18 underwent an ERCP with stent placement and Upper EUS. A mass was seen in the lateral aspect of the head of the pancreas without vascular involvement. There was concern for duodenal invasion. An FNB was performed and the pathology shows carcinoma with acinar and ductal differentiation. A CT c/a/p was performed on 04/04/18 and showed no evidence of distant metastatic disease. The primary tumor is seen along the right lateral border of the pancreatic head and abuts the duodenum. There was no vascular involvement. We discussed his case at GI Tumor Board on 04/15/18. The primary tumor was considered resectable. Wegenerally approach localized pancreatic cancer with a neoadjuvant approach. However, in his case, the thought of the board was for resection upfront resection followed by consideration of adjuvant therapy. This was for a couple of reasons. As noted above, the histologic type is atypical, with mixed acinar and ductal differentiation and behavior and response to neoadjuvant therapy uncertain. The tumoris resectable now and we would not want to miss the opportunity for resection should the cancer progress on therapy. In addition, resected acinar cell pancreatic cancer generally has a better prognosisthan adenocarcinoma (although this is not a pure acinar cell carcinoma). We discussed that we likelywould recommend post-operative chemotherapy. Acinar cell cancers are felt to be relatively resistantto gemcitabine therapy and therefore the thought would be for mFolfirinox. We reviewed the schedule of that, need for a mediport, duration of therapy (12 cycles, ie 6 months) and some of the side effects. On 05/05/18 he underwent a robotic whipple procedure. The path is above - well differentiated adenocarcinoma with invasion of peripancreatic soft tissues, pT2. 2 LNs were seen, both negative, pN0. The margins of resection were negative. Of note, no acinar differentiation was seen in this specimen. He started adjuvant chemotherapy 06/25/18 with FOLFIRINOX and is here today for evaluation for C#6. He will receive treatment today. We may have to dose reduce him due to his neuropathy. We will evaluate him again in 2 weeks and decide then. Overall he is doing great. His significantly elevated Ferritin is of concern. This was ordered by the bioinformaticist to check nutritional status. Of note his HgB was 13 in Nov before dx - I do not have an older baseline, however when he started on chemo it was 15.5 which is on the high end of normal. He may need to be worked up for hemachromatosis at some point. RTC 2wks for re-eval for C#7. After cycle #8 he will have a scan again. He is comfortable with this plan. documented in this encounter Plan of Treatment Upcoming Encounters Date Type Specialty Care Team Description 02/23/2022 Office Visit Hematology and Oncology Gigi Sosa MD [facility] [place] [address] Ebonie Gordon APRN [address] [place] [address] [place] [address] documented as of this encounter Visit Diagnoses Diagnosis Malignant neoplasm of pancreas, unspecif ied location of malignancy documented in this encounter Care Teams Spa Receptionist Relationship Specialty Start Date End Date Corrie Pacheco APRN PCP - General Family Medicine 04/04/18 [place] [address] documented as of this encounter
--- OUTSIDE RECORDS SUMMARY | 2022-02-23 01:43 | XMS_ITS | Encounter Summary ---
:1960 Author Organization [facility] [place] [address] Care Team Providers Name Role Phone Corrie Pacheco APRN Primary Care Provider Encounter Details Date Type Department Care Team Description 10/27/2018 Clinical Support Hematology/Oncology Ольга Duke neoplasm of at [facility] LORETTA Clinton head of pancreas [address] [place] [phone] Social History Tobacco Use Types Packs/Day [...] as of this encounter Progress Notes Ольга Duke, RD - 10/27/2018 9:00 AM EDT Nutrition Assessment Note Assessment: 57 YO M with pancreatic cancer, s/p pancreaticoduodenectomy (Whipple resection), partialpancreatectomy on 05/05/[address] Collazo. He is here for . Nutrition Characteristics: Characteristics Severity Insufficient Energy Intake Intake increased Unintended Weight Loss Weight rebounded; then gained Loss of Subcutaneous Fat Loss of Muscle Mass Fluid Accumulation Diminished Functional Capacity Nutrition Support: None Anthropometric Assessment: Weight History:Gain Wt Readings from Last 3 Encounters: 10/27/18 71.2 kg (157 lb) 10/13/18 68.7 kg (151 lb 6.4 oz) 10/10/18 67.8 kg (149 lb 6.4 oz) UBW:?231 pounds?%UBW: ?IBW: ?%IBW: ?Weight loss%: ?Lost 60 pounds over the past 7-8 mos??by modifying diet, incr activity, but unintentional weight loss of 17 pounds??sinceThanksgiving??or 10% weight loss. Comfortable at~ 170 lbs. ?? Kcal needs estimated at:??2130 at 30kcals/Kg?Protein needs estimated at: 107 at 1.5g/kg Nutrition Diagnosis Sticking to smaller, frequent meals. Appetite and stomach capacity is improving. Able to eat larger portions. Continues to take at least 2 Creon 24,000 at meals, will take more if full meal. Dysgeusia continues to improve and he is sticking with foods he knows he looks. Avoiding sweet things, as they don't set well. Weight rebounded. Increased brushing teeth, not doing baking soda/salt rinses. Intervention: Weight gain of ~ 7 lbs since last visit! Pt was sleeping during multiple attempts to see him during infusion. Follow Up: In 2 weeks when he returns to clinic. Ed material provided: -- protein needs and sources -- FASS -- Oral care -- SCCA: Diarrhea Mgmt documented in this encounter Plan of Treatment Upcoming Encounters Date Type Specialty Care Team Description 02/23/2022 Office Visit Hematology and Oncology Gigi Sosa MD [facility] [place] [address] Ebonie Gordon APRN [address] [place] [address] DR MEDICAL ONCOLOGY [place], [place] [address] documented as of this encounter Visit Diagnoses Diagnosis Malignant neoplasm of head of pancreas documented in this encounter Care Teams Newspaper Stuffer Relationship Specialty Start Date End Date Corrie Pacheco APRN PCP - General Family Medicine 04/04/[address] [place], [place] [id number] documented as of this encounter
--- OUTSIDE RECORDS SUMMARY | 2022-02-23 01:43 | XMS_ITS | Encounter Summary ---
:1960 Author Organization [facility] [place] [address] Care Team Providers Name Role Phone Corrie Pacheco APRN Primary Care Provider Encounter Details Date Type Department Care Team Description 08/05/2018 Notes Only Hematology/Oncology at [facility] OFFICE OF CARE [address] [place], [place] [phone] Social History Tobacco Use Types Packs/Day Years [...] place to sleep or slept in a detention (including now)? Sex Assigned at Date Recorded Male 07/24/2020 7:58 PM EDT documented as of this encounter Progress Notes Ivory Crews MSW - 08/05/2018 9:42 AM EDT Follow up with pt during infusion today. Reports overall he is doing fairly well. He indicated each treatment is a bit better. He is expecting to be done with his chemo mid/late December. 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 He has checked in with his disability company to make sure it will be a smooth transition. Pt indicated his is doing well. He did not identify any new needs at this time. Reminded pt of CERTIFIED MAINTENANCE WELDER availability and will continue to follow for support and resources. documented in this encounter Plan of Treatment Upcoming Encounters Date Type Specialty Care Team Description 02/23/2022 Office Visit Hematology and Oncology Gigi Sosa MD [facility] [place] [address] Ebonie Gordon APRN [address] [place] [address] [place] [address] documented as of this encounter Visit Diagnoses Not on filedocumented in this encounter Care Teams Applied Statistician Relationship Specialty Start Date End Date Corrie Pacheco APRN PCP - General Family Medicine 04/04/18 [address] [facility] [place] [address] documented as of this encounter
--- OUTSIDE RECORDS SUMMARY | 2022-02-23 01:43 | XMS_ITS | Encounter Summary ---
:1960 Author Organization [facility] [place] [place] [address] Care Team Providers Name Role Phone Corrie Pacheco APRN Primary Care Provider Encounter Details Date Type Department Care Team Description 08/07/2018 Clinical Support Hematology/Oncology Ольга Duke neoplasm of at [facility] LORETTA Clinton head of pancreas [address] [place] [phone] Social History Tobacco Use Types Packs/Day [...] Sign Reading Time Taken Comments Blood Pressure - - Pulse - - Temperature - - Respiratory Rate - - Oxygen Saturation - - Inhaled Oxygen Concentration - - Weight 66.6 kg (146 lb 12.8 oz) 08/07/2018 11:00 AM EDT Height 170 cm (5' 6.93) 08/07/2018 11:00 AM EDT Body Mass Index 23.04 08/07/2018 11:00 AM EDT documented in this encounter Progress Notes Ольга Duke, RD - 08/07/2018 10:15 AM EDT Nutrition Assessment Note Assessment: 57 YO M with pancreatic cancer, s/p pancreaticoduodenectomy (Whipple resection), partialpancreatectomy on 05/05/[address] Collazo. Nutrition Characteristics: Characteristics Severity Insufficient Energy Intake Insufficient Energy Intake: Equals 75% for equals 7 days Unintended Weight Loss Loss of Subcutaneous Fat Loss of Subcutaneous Fat: (P) Yes Loss of Muscle Mass Loss of Muscle Mass: (P) Yes Fluid Accumulation Fluid Accumulation: No Diminished Functional Capacity Diminished Functional Capacity: No change Nutrition Support: None Anthropometric Assessment: Weight History: UBW:?231 pounds?%UBW: ?IBW: ?%IBW: ?Weight loss%: ?Lost 60 pounds over the past 7-8 mos??by modifying diet, incr activity, but unintentional weight loss of 17 pounds??sinceThanksgiving??or 10% weight loss. Comfortable at~ 170 lbs. ?? Kcal needs estimated at:??2130 at 30kcals/Kg?Protein needs estimated at: 107 at 1.5g/kg Nutrition Diagnosis Problems: Inadequate fluid intake related to Increased s/e of diarrhea from chemotherapy, decreased intake as evidenced by Signs and Symptoms: Electrolyte mineral abnormalitites, Unintentional weight loss. Intervention: Recommended baking soda/salt rinses before and after meals to help with dysgeusia and xerostomia. Reviewed fluid needs w/ diarrhea and importance of electrolyte repletion. Follow Up: In 2 weeks when he returns to clinic. Note: Please see Hematology/Oncology malnutrition flowsheet for complete RD assessment/documentation Ed material provided: -- protein needs and sources -- FASS -- Oral care -- SCCA: Diarrhea Mgmt documented in this encounter Plan of Treatment Upcoming Encounters Date Type Specialty Care Team Description 02/23/2022 Office Visit Hematology and Oncology Gigi Sosa MD [facility] [place] [address] Ebonie Gordon APRN [address] [place] [address] DR MEDICAL ONCOLOGY [place], [place] [id number] documented as of this encounter Visit Diagnoses Diagnosis Malignant neoplasm of head of pancreas documented in this encounter Care Teams Candy Polisher Relationship Specialty Start Date End Date Corrie Pacheco APRN PCP - General Family Medicine 04/04/[address] [place] [place] [address] documented as of this encounter
--- OUTSIDE RECORDS SUMMARY | 2022-02-23 01:43 | XMS_ITS | Encounter Summary ---
:1960 Author Organization [facility] [place] [address] Care Team Providers Name Role Phone Corrie Pacheco APRN Primary Care Provider Encounter Details Date Type Department Care Team Description 11/04/2018 Office Visit General Surgery at Lázaro Collazo [facility] rine pancreatic [facility] MD [facility] [address] [place] GENERAL SURGERY [address] [place] [address] [phone] (Wo rk) Social History Tobacco Use Types [...] Sign Reading Time Taken Comments Blood Pressure 117/76 11/04/2018 10:23 AM EDT Pulse 73 11/04/2018 10:23 AM EDT Temperature 36.9 ??C (98.4 ??F) 11/04/2018 10:23 AM EDT Respiratory Rate 16 11/04/2018 10:23 AM EDT Oxygen Saturation 100% 11/04/2018 10:23 AM EDT Inhaled Oxygen Concentration - - Weight 68.5 kg (151 lb) 11/04/2018 10:23 AM EDT Height - - Body Mass Index 24.37 10/27/2018 7:58 AM EDT documented in this encounter Progress Notes Lázaro Collazo MD - 11/04/2018 10:30 AM EDT Surgical Oncology Office Note Date: 11/04/2018 Primary physician: Corrie Pacheco MD ? Medical oncologist: Rasheed Sosa MD ?? Referring physician: Albert Bender MD Reason for evaluation: 6 mo post whipple assessment. Interval History: Mr. Combs is a 57 year old man from [place], [place]. He presented to [facility] with painless jaundice. His total bilirubin was 6. ?? 03/31/18 CT abdomen and pelvis with oral and IV contrast ([facility]) showed a subtle mass in the HOP [...] ?? 04/04/18 EUS FNA cytopathology per Acc# [id number] was interpreted as Positive for Malignancy. Carcinoma [...] nodules. No ascites. No biopsy was performed. Hospital Course: 05/05 POD 0: Robotic Whipple. ??Bile duct culture grew Clostridium perfringens in the anaerobic culture and klebsiella pneumonia resistant to ampicillin but otherwise pansensitive. 05/06 POD 1: NGT, Metcalf maintained. ??ELPIDIO amylase 670 05/07 POD 2: Metcalf discontinued, voiding spontaneously. ??ELPIDIO amylase 83 05/08 POD 3: Suppository, small BM, + flatus. ??ELPIDIO amylase 23. Reglan started. 05/09 POD 4: NGT discontinued. Tolerating clears, RESISTANCE WELDING MACHINE OPERATOR weaned. ??ELPIDIO amylase 23 05/10 POD 5:1/2 regular diet, ELPIDIO DCd. RESISTANCE WELDING MACHINE OPERATOR DCd, PO pain meds, Creon started 05/11 POD 6: Tolerating PO; removed 1/2 portion restriction. Anticipate d/c home in next day or so. 05/12 POD 7: Patient cleared for discharge home. Complications: None. Medications: ??? CREON 24,000-76,000 -120,000 unit Capsule, Delayed Release(E.C.) ??? omeprazole (PRILOSEC) 40 mg Capsule, Delayed Release(E.C.) ??? loperamide (IMODIUM A-D) 2 mg Tablet ??? prochlorperazine (COMPAZINE) 10 mg Tablet ??? acetaminophen (TYLENOL) 325 mg Tablet ??? docusate sodium (COLACE) 100 mg Capsule Pathology: 05/07/18 Acc# [id number] ?? Surgical Pathology DIAGNOSIS A - Liver, biopsy: Bile duct adenoma. B - Segment 2 liver nodule: Benign liver parenchyma, negative for tumor. C - 4B liver nodule #2: Biliary hamartoma. D - Common hepatic artery lymph node: One benign lymph node, negative for tumor (0/1). E - Head of pancreas, duodenum, bile duct, gallbladder, antrum; ??pancreaticoduodenectomy: No residual tumor is identified (see SYNOPTIC REPORT below). Six benign lymph nodes, negative for tumor (0/9). Chronic cholecystitis. F - Posterior hepatic artery lymph node: One benign lymph node, negative for tumor (0/1). SYNOPTIC REPORT Specimen ?Procedure: ??Pancreaticoduodenectomy (Whipple resection), partial ? pancreatectomy Tumor ?Tumor Site: ??Pancreatic head ?Tumor Extent ? Tumor Extension: ?? No evidence of primary tumor ?Accessory Findings ? Treatment Effect: ?? Present ?Treatment Effect Present: ?? No viable cancer cells (complete response, ? CAP score 0), Vela Grade IV (no viable tumor cells present) ? Lymphovascular Invasion: ?? Not identified ? Perineural Invasion: ?? Not identified Margins ?Margins: ??All margins are uninvolved by invasive carcinoma and high-grade ? intraepithelial neoplasia Lymph Nodes ?Number of Lymph Nodes Involved: ?0 ?Number of Lymph Nodes Examined: ?11 Pathologic Stage Classification (pTNM, AJCC 8th Edition) ?TNM Descriptors: ?? y (post-treatment) ?Primary Tumor (pT): ?? pT0 ?Regional Lymph Nodes (pN): ?? pN0 Tumor Block(s): ?? N/A Objective: Vitals: Blood pressure 117/76, pulse 73, temperature 36.9 ??C (98.4 ??F), resp. rate 16, weight 68.5kg (151 lb), SpO2 100 %. 11/04/18 he weighed 151 pounds. His weight before surgery was 157 pounds. General: Jaciel looks great. He is very well appearing. He ambulates onto the exam table without anydifficulty. He is accompanied to this visit by his - Demi. Chest: Auscultation on exam of posterior lung del castillo- CTA B Heart: RRR Abdomen: Soft, nondistended and nontender. Port sites all healed nicely with no hernias. Extremities: No peripheral edema and symmetric bilaterally. Assessment and plans: Jaciel comes into the clinic today for his 6 month post whipple assessment. Heis nearly done with the adjuvant systemic chemotherapy- FOLFIRINOX per Dr. Sosa up in [place]. He only has 2 more cycles to go. He is really doing fantastic. He is eating pretty much whatever he wants. No symptoms of pancreatic exocrine insufficiency. He is still taking Creon, 2 capsules with meals and he occasionally takes omeprazole. We discussed how he will need to be on omeprazole for about 1 year post Whipple to avoid andprevent marginal ulcers. He just refilled the Creon prescription so we discussed the plan for him tocontinue taking Creon until he runs out of the bottle that he just recently got. I talked him through what symptoms to watch out for with regard to pancreatic exocrine insufficiency- increasing frequency of stools, cramping, diarrhea, oily stools and weight loss. As long as he is not having any of thesymptoms he can hopefully go off Creon permanently. We discussed how some patients may require pancreatic enzyme replacement either selectively or with each meal but I suspect he is going to be 1 of the patients that will not need enzyme replacement long-term. His labs look good. No concerns on exam. I will look forward [facility]. Estela Collazo MD 11/04/2018 10:37 AM Labs reviewed below: Recent Results (from the past 24 hour(s)) Ferritin Result Value Ref Range Ferritin 826 (H) 30 - 400 ng/mL Iron and TIBC Result Value Ref Range Iron 50 45 - 160 mcg/dL TIBC 296 250 - 450 mcg/dL Iron Saturation 17 (L) 20 - 50 % Vitamin B12 Result Value Ref Range Vitamin B-12 496 232 - 1,245 pg/mL documented in this encounter Plan of Treatment Upcoming Encounters Date Type Specialty Care Team Description 02/23/2022 Office Visit Hematology and Oncology Gigi Sosa MD [facility] [place] [address] Ebonie Gordon, [address] [address] documented as of this encounter Visit Diagnoses Diagnosis Exocrine pancreatic insufficiency Other specified disease of pancreas documented in this encounter Care Teams Part Maker Relationship Specialty Start Date End Date Corrie Pacheco APRN PCP - General Family Medicine 04/04/[address] [place], [place] [id number] documented as of this encounter
--- OUTSIDE RECORDS SUMMARY | 2022-02-23 01:43 | XMS_ITS | Encounter Summary ---
:1960 Author Organization [facility] [place] [address] Care Team Providers Name Role Phone Corrie Pacheco APRN Primary Care Provider Reason for Visit Reason Comments Chemotherapy Cycle 5, Day 1; Folfirinox Treatment/Therapy Plan Authorization (Routine) - Closed Specialty Diagnoses / Procedures Referred By Contact Refer red To Contact Hematology and Diagnoses Malignant neoplasm of head of pancreas Gigi Sosa St[facility] Hem Onc Oncology Procedures TC APREPITANT, 1 MG, INJECTION TC PALONOSETRON HCL, 25MCG, INJECTION (ALOXI) TC OXALIPLATIN, 0.5MG, INJECTION (ELOXATIN) TC IRINOTECAN, 20MG (CAMPTOSAR) TC FLOUROURACIL, 500MG MD Infusion [address] [place]OG[place] [address] [place] [address] Referral ID Status Reason Start Date Expiration Date Visits Requ ested Visits Authorized [id number] Closed 06/06/2018 06/06/2019 30 30 Encounter Details Date Type Department Care Team Description 08/18/2018 Infusion Hematology Oncology at [facility] lignant neoplasm of head [facility] of [address] [phone] Social History Tobacco Use [...] Sign Reading Time Taken Comments Blood Pressure 111/63 08/18/2018 8:14 AM EDT Pulse 63 08/18/2018 8:14 AM EDT Temperature 36.6 ??C (97.9 ??F) 08/18/2018 8:14 AM EDT Respiratory Rate 16 08/18/2018 8:14 AM EDT Oxygen Saturation 100% 08/18/2018 8:14 AM EDT Inhaled Oxygen Concentration - - Weight 67.5 kg (148 lb 12.8 08/18/2018 8:14 AM oz) EDT Height 170 cm (5' 6.93) 08/18/2018 8:14 AM copied forw joe EDT Body Mass Index 23.35 08/18/2018 8:14 AM EDT documented in this encounter Progress Notes Suraj Valero RN - 08/18/2018 8:00 AM EDT INFUSION THERAPY ADMINISTRATION NOTES DIAGNOSIS: Pancreatic cancer CYCLE #5, Day 1 REASON FOR VISIT: FOLFIRONOX infusion and initiation of continunous home 5FU infusion via CADD pump provided by [employer] SUBJECTIVE Jaciel offers no complaints. OBJECTIVE LAB DATA: Labs reviewed and found adequate for treatment. Pre administration: Chemotherapy orders independently verified for drug name, route, and dosage per patient's height, weight and BSA by SURAJ VALERO RN and Rick Mercer [facility]. At time of administration Patient identity verified [...] treatment well. PLAN Return to clinic on , 08/20/18 @ 1045 for disconnect and hydration. documented in this encounter Plan of Treatment Upcoming Encounters Date Type Specialty Care Team Description 02/23/2022 Office Visit Hematology and Oncology Gigi Sosa MD [facility] [place] [address] Ebonie Gordon, HUMAN RESOURCES SPECIALIST [address] [place] [address] [place] [address] documented as of this encounter Procedures Procedure Name Priority Date/Time Associated Diagnosis Comme nts LAB SCAN 08/15/2018 12:00 AM Results for this EDT procedure are i n the results section . documented in this encounter Results SCAN DOC: LAB (08/15/2018 12:00 AM EDT) Narrative 08/15/2018 12:00 AM EDT This result has an [...] Dose Rate Site aprepitant (CINVANTI) injection Given 08/18/2018 8:48 AM EDT 130 mg Emul 130 mg 130 mg, Intravenous, ONCE, 1 dose, On Sat08/18/18 at 0845, Alternative administration of IV push over 2 minutes is a recommendation from the administration clerk., Routine atropine injection 0.5 mg Given 08/18/2018 10:51 AM EDT 0.5 mg 0.5 mg, Intravenous, ONCE, 1 dose, On Sat08/18/18 at 0845, Administer prior to IRINOtecan, Routine dexamethasone (DECADRON) tablet 8 mg Given 08/18/2018 8:41 AM EDT 8 mg 8 mg, Oral, ONCE, 1 dose, On Sat08/18/18 at 0845, Administer prior to chemotherapy, Routine fluorouracil (ADRUCIL) 4,440 mg in Given 08/18/2018 12:37 PM EDT 4,440 mg 3 mL/hr sodium chloride 0.9% 138 mL chemo infusion 4,440 mg (2,400 mg/m2/dose ? 1.85 m2 Treatment Plan BSA from Recorded weight), Intravenous, ONCE, 1 dose, On Sat08/18/18 at 1215, Administer over 46 Hours, Warning Vesicant/Irritant Medication To be infused via an ambulatory infusion CADD Legacy Plus pump continuously IV at 3 mL/hr for 46 hours. Pump contains a 46 hour supply and provides a daily dose of 1200 mg/m2/day = 2400 mg/m2 IV over 46 hours with 12 mL of overfill in bag. IRINOtecan (CAMPTOSAR) 260 mg in New Bag 08/18/2018 10:51 AM E DT 260 mg 342 mL/hr dextrose 5% 513 mL chemo infusion 260 mg, Intravenous, ONCE, 1 dose, On Sat08/18/18 at 0945, Administer over 90 Minutes, Dose Ordered = 278 mg (150 mg/m2). Pharmacist rounded dose per procedure. ondansetron (ZOFRAN) injection 8 mg Given 08/18/2018 8:48 AM EDT 8 mg 8 mg, Intravenous, ONCE, 1 dose, On Sat08/18/18 at 0845 OXALIplatin (ELOXATIN) 150 mg in New Bag 08/18/2018 9:17 AM ED T 150 mg 198 mL/hr dextrose 5% 280 mL chemo infusion 150 mg, Intravenous, ONCE, 1 dose, On Sat08/18/18 at 0945, Administer over 85 Minutes, Administer first. Compatible with dextrose-containing solution only. , Warning Vesicant/Irritant Medication , Dose Ordered = 157 mg (85 mg/m2). Pharmacist rounded dose per procedure. documented in this encounter Care Teams Janitorial Supervisor Relationship Specialty Start Date End Date Corrie Pacheco APRN PCP - General Family Medicine 04/04/18 [facility] [place] [address] documented as of this encounter
--- OUTSIDE RECORDS SUMMARY | 2022-02-23 01:43 | XMS_ITS | Encounter Summary ---
:1960 Author Organization [facility] [place] [address] Care Team Providers Name Role Phone Corrie Pacheco APRN Primary Care Provider Reason for Visit Reason Comments Chemotherapy FOLFOX, Cycle 11, Day 1 Treatment/Therapy Plan Authorization (Routine) - Closed Specialty Diagnoses / Procedures Referred By Contact Refer red To Contact Hematology and Diagnoses Malignant neoplasm of head of pancreas Gigi Sosa Stj Hem Onc Oncology Procedures TC APREPITANT, 1 MG, INJECTION TC PALONOSETRON HCL, 25MCG, INJECTION (ALOXI) TC OXALIPLATIN, 0.5MG, INJECTION (ELOXATIN) TC IRINOTECAN, 20MG (CAMPTOSAR) TC FLOUROURACIL, 500MG MD Infusion [address] [place]OG[place] [address] [place] [address] Referral ID Status Reason Start Date Expiration Date Visits Requ ested Visits Authorized [id number] Closed 06/06/2018 06/06/2019 30 30 Encounter Details Date Type Department Care Team Description 11/10/2018 Infusion Hematology Oncology at [facility] lignant neoplasm of head [facility] of [address] [phone] Social History Tobacco Use [...] documented as of this encounter Progress Notes Maryam Reyes RN - 11/10/2018 8:30 AM EDT INFUSION THERAPY ADMINISTRATION NOTES DIAGNOSIS: Pancreatic cancer CYCLE #11, Day 1 REASON FOR VISIT: FOLFIRONOX infusion and initiation of continunous home 5FU infusion via CADD pump provided by [employer] MASTER Jaciel offers no complaints. OBJECTIVE LAB DATA: Labs reviewed by provider in clinic and found adequate for treatment. Pre administration: Chemotherapy orders independently verified for drug name, route, and dosage per patient's height, weight and BSA by MARYAM REYES RN and Rick Mercer [facility]. At time of administration Patient identity [...] treatment well. PLAN Return to clinic on 11/12/18 @ 1115 for disconnect and hydration. documented in this encounter Plan of Treatment Upcoming Encounters Date Type Specialty Care Team Description 02/23/2022 Office Visit Hematology and Oncology Gigi Sosa MD [facility] [place] [address] Ebonie Gorodn [address] [place] [address] documented as of this encounter Visit Diagnoses Diagnosis Malignant neoplasm of head of pancreas documented in this encounter Administered Medications Inactive Administered Medications - up to 3 most recent administrations Medication Order MAR Action Action Date Dose Rate Site aprepitant (CINVANTI) injection Given 11/10/2018 8:44 AM EDT 130 mg Emul 130 mg 130 mg, Intravenous, ONCE, 1 dose, On Sat11/10/18 at 0845, Alternative administration of IV push over 2 minutes is a recommendation from the house calls nurse., Routine atropine injection 0.5 mg Given 11/10/2018 11:10 AM EDT 0.5 mg 0.5 mg, Intravenous, ONCE, 1 dose, On Sat11/10/18 at 0845, Administer prior to IRINOtecan, Routine dexamethasone (DECADRON) tablet 8 mg Given 11/10/2018 8:42 AM EDT 8 mg 8 mg, Oral, ONCE, 1 dose, On Sat11/10/18 at 0845, Administer prior to chemotherapy, Routine fluorouracil (ADRUCIL) 4,272 mg in Given 11/10/2018 1:10 PM EDT 4,272 mg 3 mL/hr sodium chloride 0.9% 138 mL chemo infusion 4,272 mg (2,400 mg/m2/dose ? 1.78 m2 Treatment Plan BSA from Recorded weight), Intravenous, ONCE, 1 dose, On Sat11/10/18 at 1215, Administer over 46 Hours, Warning Vesicant/Irritant Medication To be infused via an ambulatory infusion CADD Legacy Plus pump continuously IV at 3 mL/hr for 46 hours. Pump contains a 46 hour supply and provides a daily dose of 1200 mg/m2/day = 2400 mg/m2 IV over 46 hours with 12 mL of overfill in bag. IRINOtecan (CAMPTOSAR) 260 mg in New Bag 11/10/2018 11:15 AM E DT 260 mg 342 mL/hr dextrose 5% 513 mL chemo infusion 260 mg, Intravenous, ONCE, 1 dose, On Sat11/10/18 at 0945, Administer over 90 Minutes, Dose Ordered = 260 mg (150 mg/m2). Pharmacist rounded dose per procedure. ondansetron (ZOFRAN) injection 8 mg Given 11/10/2018 8:43 AM EDT 8 mg 8 mg, Intravenous, ONCE, 1 dose, On Sat11/10/18 at 0845 OXALIplatin (ELOXATIN) 150 mg in New Bag 11/10/2018 9:40 AM ED T 150 mg 197.6 mL/hr dextrose 5% 280 mL chemo infusion 150 mg, Intravenous, ONCE, 1 dose, On Sat11/10/18 at 0945, Administer over 85 Minutes, Administer first. Compatible with dextrose-containing solution only. , Warning Vesicant/Irritant Medication , Dose Ordered = 151 mg (85 mg/m2). Pharmacist rounded dose per procedure. documented in this encounter Care Teams Dress Finisher Relationship Specialty Start Date End Date Corrie Pacheco APRN PCP - General Family Medicine 04/04/18 [address] [place] [address] documented as of this encounter
--- OUTSIDE RECORDS SUMMARY | 2022-02-23 01:43 | XMS_ITS | Encounter Summary ---
:1960 Author Organization [facility] Address [facility] [place] [address] Care Team Providers Name Role Phone Corrie Pacheco APRN Primary Care Provider Encounter Details Date Type Department Care Team Description 11/04/2018 Laboratory Appointment Lab 3L [facility] Exocrine pancreatic insufficiency; [facility] Malignant neoplasm of head o f pancreas; [facility] Severe pr otein-calorie malnutrition; Drive [place] [id number] Social History Tobacco Use Types Packs/Day Years [...] Gigi Sosa MD [facility] [place] [address] Ebonie Gordon, [address] [address] documented as of this encounter Procedures Procedure Name Priority Date/Time Associated Diagnosis Comme nts IRON AND TIBC Routine 11/04/2018 9:05 AM Exocrine pancreatic R esults for this EDT insufficiency procedure are in Malignant neoplasm of the re sults head of pancreas section. Severe protein-calorie malnutrition VITAMIN A STAT 11/04/2018 9:05 AM Exocrine pancreatic Re sults for this EDT insufficiency procedure are in the results section. VITAMIN D, Routine 11/04/2018 9:05 AM Exocrine pancreatic Re sults for this 25-HYDROXY EDT insufficiency procedure are in Malignant neoplasm of the re sults head of pancreas section. Severe protein-calorie malnutrition VITAMIN E STAT 11/04/2018 9:05 AM Exocrine pancreatic Re sults for this EDT insufficiency procedure are in the results section. FERRITIN Routine 11/04/2018 9:05 AM Exocrine pancreatic Re sults for this EDT insufficiency procedure are in Malignant neoplasm of the re sults head of pancreas section. Severe protein-calorie malnutrition VITAMIN B12 STAT 11/04/2018 9:05 AM Exocrine pancreatic Re sults for this EDT insufficiency procedure are in the results section. documented in this encounter Results Vitamin A (11/04/2018 9:05 AM EDT) athologist Signature Vitamin A 50.6 32.5 - 78.0 KAYY REINOSOCOCK mcg/dL [facility] Comment: ADDITIONAL INFORMATIO N This test was developed and its performa nce characteristics determined by [facility] in a manner co nsistent with CLIA requirements. This test has not been brenda ared or approved by the U.S. Food and Drug Administration. Test Performed by: [facility] [address] [place], [place] [address] Specimen Anatomical Collection Method Collection Time Receive d Time (Source) Location / / Volume Laterality Blood specimen 11/04/2018 9:05 AM 019 (specimen) EDT 10:43 AM EDT Resulting Agency Comment Spec In Lab Lázaro Collazo MD CHEMISTRY ORDERABLES Performing Organization Address City/State/ZIP Code Phon e Number [address] Vitamin B12 (11/04/2018 9:05 AM EDT) athologist Signature Vitamin B-12 496 232 - 1,245 [facility] pg/mL [facility] Specimen Anatomical Collection Method Collection Time Receive d Time (Source) Location / / Volume Laterality Blood specimen 11/04/2018 9:05 AM 019 9:17 (specimen) EDT AM EDT Resulting Agency Comment Spec In Lab Lázaro Collazo MD CHEMISTRY ORDERABLES Performing Organization Address City/[facility]/ZIP Code Phon e Number [address] Vitamin E (11/04/2018 9:05 AM EDT) athologist Signature Vitamin E 6.5 5.5 - 17.0 [facility] mg/L [facility] Comment: ADDITIONAL INFORMATIO N This test was developed and its performa nce characteristics determined by [facility] in a manner co nsistent with CLIA requirements. This test has not been brenda ared or approved by the U.S. Food and Drug Administration. Test Performed by: [facility] [address] [place], [place] [address] Specimen Anatomical Collection Method Collection Time Receive d Time (Source) Location / / Volume Laterality Blood specimen 11/04/2018 9:05 AM 019 (specimen) EDT 10:34 AM EDT Resulting Agency Comment Spec In Lab Lázaro Collazo MD CHEMISTRY ORDERABLES Performing Organization Address City/State/[place] [address] (ABNORMAL) Iron and TIBC (11/04/2018 9:05 AM EDT) athologist Signature Iron 50 45 - 160 [facility] TIBC 296 250 - 450 [facility] m[facility]/dL [facility] Iron Saturation 17 (L) 20 - 50 % [facility] Specimen Anatomical Collection Method Collection Time Receive d Time (Source) Location / / Volume Laterality Blood specimen 11/04/2018 9:05 AM 019 9:17 (specimen) EDT AM EDT Resulting Agency Comment Spec In Lab Tricia Garcia APRN CHEMISTRY ORDERABLES Performing Organization Address City/[facility]/[place] [address] (ABNORMAL) Ferritin (11/04/2018 9:05 AM EDT) athologist Signature Ferritin 826 (H) 30 - 400 [facility] ng/mL [facility] Comment: Pediatric reference ranges not verified at [facility], interpret with caution. Reference ranges for females greater faheem n 50 years of age approach values for men, i.e., 30-400 ng/mL. Specimen Anatomical Collection Method Collection Time Receive d Time (Source) Location / / Volume Laterality Blood specimen 11/04/2018 9:05 AM 019 9:17 (specimen) EDT AM EDT Resulting Agency Comment Spec In Lab Tricia Garcia DAMIEN CHEMISTRY ORDERABLES Performing Organization Address City/[facility]/ZIP Code Phon e Number [place] [phone] (ABNORMAL) Vitamin D, 25-Hydroxy (11/04/2018 9:05 AM EDT) P athologist Signature 25-OH Vit D 29 (L) 30 - 100 [facility] Total ng/mL [facility] Comment: Deficient <10 ng/mL Insufficient 10 to 29 ng/mL Sufficient 30 to 100 ng/mL Potential Intoxication >100 ng/mL According to the US National Osteoporosi s Foundation, Vitamin D concentrations >30 ng/mL are sufficient to protect bone health. ??The National Kidney Foundation has similarly stated that pat ients with Vitamin D concentrations <30ng/mL should be considered to be insu fficient or deficient. http://JustShareIt/nkf-guidelines http://JustShareIt/nejm-VitD The [employer] Vitamin D Immunoassay detec ts both 25-OH Vitamin D2 and 25-OH Vitamin D3, but only a total Vitamin D c oncentration is reported. Specimen Anatomical Collection Method Collection Time Receive d Time (Source) Location / / Volume Laterality Blood specimen 11/04/2018 9:05 AM 019 (specimen) EDT 11:16 AM EDT Resulting Agency Comment Spec In Lab Tricia Tuttlestephanymariana DAMIEN CHEMISTRY ORDERABLES Performing Organization Address City/[facility]/[place] [address] documented in this encounter Visit Diagnoses Diagnosis Exocrine pancreatic insufficiency Other specified disease of pancreas Malignant neoplasm of head of pancreas Severe protein-calorie malnutrition Other severe protein-calorie malnutritio n Other iron deficiency anemia documented in this encounter Care Teams Information Security Manager Relationship Specialty Start Date End Date Corrie Pacheco APRN PCP - General Family Medicine 04/04/18 [place] [address] documented as of this encounter
--- OUTSIDE RECORDS SUMMARY | 2022-02-23 01:43 | XMS_ITS | Encounter Summary ---
:1960 Author Organization [facility] [place] [address] Care Team Providers Name Role Phone Corrie Pacheco APRN Primary Care Provider Reason for Visit Reason Comments IV Medication Cycle 10, Day 3; CADD pump d isconnect, hydration and antiemetics Treatment/Therapy Plan Authorization (Routine) - Closed Specialty Diagnoses / Procedures Referred By Contact Refer red To Contact Hematology and Diagnoses Malignant neoplasm of head of pancreas Gigi Sosa Stj Hem Onc Oncology Procedures TC APREPITANT, 1 MG, INJECTION TC PALONOSETRON HCL, 25MCG, INJECTION (ALOXI) TC OXALIPLATIN, 0.5MG, INJECTION (ELOXATIN) TC IRINOTECAN, 20MG (CAMPTOSAR) TC FLOUROURACIL, 500MG MD Infusion [address] [place]OGY [address] [place] [address] Referral ID Status Reason Start Date Expiration Date Visits Requ ested Visits Authorized [id number] Closed 06/06/2018 06/06/2019 30 30 Encounter Details Date Type Department Care Team Description 10/29/2018 Infusion Hematology Oncology at [facility] lignant neoplasm of head [place] of pancreas [address] [place] [phone] Social History Tobacco Use Types [...] documented as of this encounter Progress Notes Irma Valero RN - 10/29/2018 10:00 AM EDT INFUSION THERAPY ADMINISTRATION NOTES DIAGNOSIS: Pancreatic cancer REASON FOR VISIT: Discontinue 5FU home infusion, flush and deaccess mediport. Hydration and meds. SUBJECTIVE: Jaciel denies any complaints. OBJECTIVE: REACTIONS (DESCRIPTION, TIME, INTERVENTION AND EFFECTIVENESS) none ASSESSMENT: Jaciel was awake, alert and he tolerated treatment well. Port flushed with 20 cc of NS and 500 unitsof heparin and de-accessed. PLAN: Return to clinic per routine. documented in this encounter Plan of Treatment Upcoming Encounters Date Type Specialty Care Team Description 02/23/2022 Office Visit Hematology and Oncology Gigi Sosa MD [facility] [place] [address] Ebonie Gordon, DAMIEN [address] [place] [address] [place] [address] documented as of this encounter Visit Diagnoses Diagnosis Malignant neoplasm of head of pancreas documented in this encounter Administered Medications Inactive Administered Medications - up to 3 most recent administrations Medication Order MAR Action Action Date Dose Rate Site dexamethasone (DECADRON) injection Given 10/29/2018 11:32 AM EDT 8 mg 8 mg 8 mg, Intravenous, ONCE, 1 dose, On Sat10/29/18 at 1130 heparin, porcine 100 unit/mL flush 500 Given 10/29/2018 12:14 PM EDT 500 Units Units 500 Units, Intravenous, ONCE PRN, Starting on Sat10/29/18 at 1110, Until Sat10/29/18 at 1549, Line Care, Refer to Intravenous (IV) Procedure: Accessing Implanted Vascular Access Devices (654) procedure and/or Intravenous (IV) Job Aid: Adult Flushing & Catheter Care (8480) job aid for additional information regarding guidelines and administration., Routine palonosetron (ALOXI) injection 0.25 mg Given 10/29/2018 11:32 AM EDT 0.25 mg 0.25 mg, Intravenous, ONCE, 1 dose, On Sat10/29/18 at 1130, Routine sodium chloride 0.9 % (flush) flush 5-20 mL Given 10/29/2018 12:14 PM EDT 20 mLs 5-20 mL, Intravenous, EVERY 1 MIN PRN, Starting on Sat10/29/18 at 1110, Until Sat10/29/18 at 1549, Line Care, Flush pertains to all indwelling lines. Flush per protocol found in the job aid using the link provided on this medication record. Refer to Intravenous (IV) Job Aid: Adult Flushing & Catheter Care (8774) job aid for additional information regarding guidelines and administration., Routine sodium chloride 0.9% infusion New Bag 10/29/2018 11:13 AM EDT 1,000 mL/hr 1000 mL/hr 1,000 mL/hr, Intravenous, CONTINUOUS, Starting on Sat10/29/18 at 1130, Until Sat10/29/18 at 1229 documented in this encounter Care Teams Railroad Police Relationship Specialty Start Date End Date Corrie Pacheco APRN PCP - General Family Medicine 04/04/[address] [place] [place] [address] documented as of this encounter
--- OUTSIDE RECORDS SUMMARY | 2022-02-23 01:43 | XMS_ITS | Encounter Summary ---
:1960 Author Organization [facility] [place] [address] Care Team Providers Name Role Phone Corrie Pacheco APRN Primary Care Provider Reason for Visit Reason Comments Chemotherapy Cycle 10, Day 1 - Folfirinox Treatment/Therapy Plan Authorization (Routine) - Closed Specialty Diagnoses / Procedures Referred By Contact Refer red To Contact Hematology and Diagnoses Malignant neoplasm of head of pancreas Gigi Sosa Stj Hem Onc Oncology Procedures TC APREPITANT, 1 MG, INJECTION TC PALONOSETRON HCL, 25MCG, INJECTION (ALOXI) TC OXALIPLATIN, 0.5MG, INJECTION (ELOXATIN) TC IRINOTECAN, 20MG (CAMPTOSAR) TC FLOUROURACIL, 500MG MD Infusion [address] ON[place]OGY [address] [place] [address] Referral ID Status Reason Start Date Expiration Date Visits Requ ested Visits Authorized [id number] Closed 06/06/2018 06/06/2019 30 30 Encounter Details Date Type Department Care Team Description 10/27/2018 Infusion Hematology Oncology at [facility] lignant neoplasm of head [facility] of [address] [phone] Social History Tobacco Use [...] place to sleep or slept in a chcf (including now)? Sex Assigned at Date Recorded Male 07/24/2020 7:58 PM EDT documented as of this encounter Progress Notes Shira Jordan RN - 10/27/2018 8:30 AM EDT INFUSION THERAPY ADMINISTRATION NOTES DIAGNOSIS: Pancreatic cancer CYCLE #: Cycle 10, Day 1 - Folfirinox REASON FOR VISIT: To receive chemotherapy. SUBJECTIVE: Jaciel offers no complaints. OBJECTIVE: Seen by provider. Ready to treat. LAB DATA: WBC - 3.61, H/H - 11.3/33.5, Plt Ct - 112, ANC - 1.85, Lytes wnl, BUN/CR - 12/0.67 IV ACCESS: Port accessed off site, flushes readily with brisk blood supply. Pre administration: Chemotherapy orders independently verified for drug name, route, and dosage per patient's height, weight and BSA by Mimi Jordan RN and Irlanda Mercer [facility]. REACTIONS (DESCRIPTION, TIME, INTERVENTION AND EFFECTIVENESS) none ASSESSMENT: Jaciel was awake, alert and tolerated treatment well. CADD pump provided by [employer], pump was double checked by Mimi Jordan RN and Stella Robertson RN prior toconnection. Pump was checked 15min after connection and 0.8 cc was infused. Patient was awake, alert and tolerated treatment well. He will return Saturday at 1100 for disconnect. PLAN Patient is aware to call clinic with any questions and concerns M-F 8am to 5pm and to call [employer] with any questions and concerns in the off hours. Return to clinic Saturday at for disconnect. documented in this encounter Plan of Treatment Upcoming Encounters Date Type Specialty Care Team Description 02/23/2022 Office Visit Hematology and Oncology Gigi Sosa MD [facility] [place] [address] Ebonie Gordon APRN [address] [place] [address] [place] [address] documented as of this encounter Procedures Procedure Name Priority Date/Time Associated Diagnosis Comme nts LAB SCAN 10/27/2018 12:00 AM Results for this EDT procedure are i n the results section . documented in this encounter Results SCAN DOC: LAB (10/27/2018 12:00 AM EDT) Narrative 10/27/2018 12:00 AM EDT This result has an [...] Dose Rate Site aprepitant (CINVANTI) injection Given 10/27/2018 8:45 AM EDT 130 mg Emul 130 mg 130 mg, Intravenous, ONCE, 1 dose, On Sat10/27/18 at 0845, Alternative administration of IV push over 2 minutes is a recommendation from the nonprofit fundraiser., Routine atropine injection 0.5 mg Given 10/27/2018 11:06 AM EDT 0.5 mg 0.5 mg, Intravenous, ONCE, 1 dose, On Sat10/27/18 at 0845, Administer prior to IRINOtecan, Routine dexamethasone (DECADRON) tablet 8 mg Given 10/27/2018 8:46 AM EDT 8 mg 8 mg, Oral, ONCE, 1 dose, On Sat10/27/18 at 0845, Administer prior to chemotherapy, Routine fluorouracil (ADRUCIL) 4,272 mg in Given 10/27/2018 12:56 PM EDT 4,272 mg 3 mL/hr sodium chloride 0.9% 138 mL chemo infusion 4,272 mg (2,400 mg/m2/dose ? 1.78 m2 Treatment Plan BSA from Recorded weight), Intravenous, ONCE, 1 dose, On Sat10/27/18 at 1200, Administer over 46 Hours, Warning Vesicant/Irritant Medication To be infused via an ambulatory infusion CADD Legacy Plus pump continuously IV at 3 mL/hr for 46 hours. Pump contains a 46 hour supply and provides a daily dose of 1200 mg/m2/day = 2400 mg/m2 IV over 46 hours with 12 mL of overfill in bag. IRINOtecan (CAMPTOSAR) 260 mg in New Bag 10/27/2018 11:11 AM E DT 260 mg 342 mL/hr dextrose 5% 513 mL chemo infusion 260 mg, Intravenous, ONCE, 1 dose, On Sat10/27/18 at 0930, Administer over 90 Minutes, Dose Ordered = 267 mg (150 mg/m2). Pharmacist rounded dose per procedure. ondansetron (ZOFRAN) injection 8 mg Given 10/27/2018 8:45 AM EDT 8 mg 8 mg, Intravenous, ONCE, 1 dose, On Sat10/27/18 at 0845 OXALIplatin (ELOXATIN) 150 mg in New Bag 10/27/2018 9:33 AM ED T 150 mg 198 mL/hr dextrose 5% 280 mL chemo infusion 150 mg, Intravenous, ONCE, 1 dose, On Sat10/27/18 at 0930, Administer over 85 Minutes, Administer first. Compatible with dextrose-containing solution only. , Warning Vesicant/Irritant Medication , Dose Ordered = 151 mg (85 mg/m2). Pharmacist rounded dose per procedure. documented in this encounter Care Teams Emt Relationship Specialty Start Date End Date Corrie Pacheco APRN PCP - General Family Medicine 04/04/18 [place] [address] documented as of this encounter
--- OUTSIDE RECORDS SUMMARY | 2022-02-23 01:43 | XMS_ITS | Encounter Summary ---
:1960 Author Organization [facility] [place] [address] Care Team Providers Name Role Phone Corrie Pacheco APRN Primary Care Provider Reason for Referral Diagnostic Test (Routine) - Closed Specialty Diagnoses / Procedures Referred By Contact Refer red To Contact Radiology Diagnoses Malignant neoplasm of pancreas, unspecified location of malignancy Fouzia Romo APRN [facility] Rad Ct Scan Procedures CT Chest Abdomen Pelvis w Contrast (Generic) [facility] [place] [address] [place] [address] Referral ID Status Reason Start Date Expiration Date Visits V isits Requested Authorized [id number] Closed Specialty 10/03/2018 2018 1 1 Service Requested Encounter Details Date Type Department Care Team Description 09/15/2018 Office Visit Hematology/Oncology Fouzia Romo Mali gnant neoplasm of at [facility] DAMIEN pancreas, unspecified [address] [place] [address] [place] [address] RADIATION ONCOLOGY [phone] [place], [place] [address] Social History Tobacco Use Types [...] Sign Reading Time Taken Comments Blood Pressure 117/86 09/15/2018 8:01 AM EDT Pulse 63 09/15/2018 8:01 AM EDT Temperature 36.7 ??C (98.1 ??F) 09/15/2018 8:01 AM EDT Respiratory Rate 18 09/15/2018 8:01 AM EDT Oxygen Saturation 100% 09/15/2018 8:01 AM EDT Inhaled Oxygen Concentration - - Weight 68.2 kg (150 lb 6.4 oz) 09/15/2018 8:01 AM EDT Height 167.7 cm (5' 6.02) 09/15/2018 8:01 AM EDT Body Mass Index 24.26 09/15/2018 8:01 AM EDT documented in this encounter Patient Instructions Patient InstructionsFouzia Romo APRN - 09/15/2018 8:00 AM EDT He will return to clinic in 2 weeks with labs prior. documented in this encounter Progress Notes Fouzia Romo APRN - 09/15/2018 8:00 AM EDT Patient ID: Jaciel Combs [...] and may- catenin (negative for nuclear staining). [id number] is retained in lesional cells. ??Overall, the [...] hands mostly but also in his feet. Today he tells me that he does not feel it is any worse than itwas at his previous visit. His second week was better than the first week. He takes his prilosec butsometimes forgets to take it on a daily basis. I advised him that he should continue to take it through treatment. He is being followed by our cloud security architect. He is active - out hiking with his dog. 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 Hematological: Negative. Psychiatric/Behavioral: Negative. BP 117/86 (Patient Position: Sitting) Pulse 63 Temp 36.7 ??C (98.1 ??F) (Oral) Resp 18 Ht 167.7 cm (5' 6.02) Wt 68.2 kg (150 lb 6.4 oz) SpO2 100% BMI 24.26 kg/m?? Wt Readings from Last 3 Encounters: 09/15/18 68.2 kg (150 lb 6.4 oz) 09/03/18 67.8 kg (149 lb 8 oz) 09/01/18 67.5 kg (148 lb 12.8 oz) Objective: Physical Exam Constitutional: He is [...] His behavior is normal. Vitals reviewed. Labs: 09/15/18 CBC: WBC 5.32 hemoglobin 11.4 platelet 172 CMP: Sodium 140 potassium 3.5 BUN 10 creatinine 0.69 glucose 107 calcium 8.4 total bili 0.3 AST 27 ALT 40 alk phos 101 total protein 6.6 albumin 2.9 Iron studies not repeated CA 19-9 06/06/18 [...] with jaundice. A CT was done at [facility] and showed intra and extrahepatic biliary ductal dilatation and question of a mass in the duodenum or head of the pancreas. He was referred to GI at [facility] and on 04/04/18 underwent an ERCP with [...] of concern. This was ordered by the cloud security architect to check nutritional status. Of note his HgB was 13 in Nov before dx - I do not have an older baseline, however when he started on chemo it was 15.5 which is on the high end of normal. He may need to be worked up for hemachromatosis at some point. RTC 2wks for re-eval for C#8. After cycle #8 he will have a scan again. He is comfortable with this plan. documented in this encounter Plan of Treatment Upcoming Encounters Date Type Specialty Care Team Description 02/23/2022 Office Visit Hematology and Oncology Gigi Sosa MD [facility] [place] [address] Ebonie Gordon APRN [address] [place] [address] [place] [address] documented as of this encounter Results CT Chest Abdomen Pelvis w Contrast (Generic) (10/07/2018 4:14 PM EDT) Anatomical Region Laterality Modality Abdomen, Pelvis Computed Tomography Specimen (Source) Anatomical Location Collection Method / Collectio n Time Received Time / Laterality Volume Impressions 10/07/2018 5:41 PM EDT 1. ??Post Whipple procedure since the previous study. No evidence of local or distant disease recurrence. 2. ??The stomach is distended,; limited evaluation of the gastrojejunostomy without enteric contrast. Clinical corre lation. Thank you for letting us participate in the care of this patient. For questions regarding this report, please contact e number below. ? Electronically signed by: Andrez [facility]vertN[facility] ([phone]), at 10/07/2018 5:41 PM Narrative 10/07/2018 5:41 PM EDT EXAMINATION: CT CHEST ABDOMEN PELVIS W CONTRAST (GENERIC) CLINICAL HISTORY: h/o pancreatic cancer s/p treatment ? status of disease TECHNIQUE: Helical CT of the chest, abdo men, and pelvis was performed following intravenous administration of contrast. Administered 84.0 ml of OMNIPAQUE 350.00 mg/ml. COMPARISON: 04/04/2018 FINDINGS: Chest: Lungs and large airways: Stable. No pulm onary nodules or areas of airspace consolidation Pleura: No effusion. Heart/vasculature: MediPort catheter not ed with tip in the superior vena cava. Lymph nodes: No enlarged lymph nodes. Mediastinum and karen: Normal. Abdomen/pelvis: Liver: Normal size and attenuation witho ut lesions. Bile ducts: Nondilated. Gallbladder: Postcholecystectomy Pancreas: Post Whipple procedure since t he previous study. The remaining pancreatic parenchyma is moderately atro phic. No pancreatic ductal dilatation. The postoperative bed is unremarkable, w ithout evidence of complication or local disease recurrence. The mesenteric vesse ls are widely patent. Spleen: Normal. Adrenals: Normal. Kidneys: Normal. Urinary Bladder: Normal. Vasculature: No aneurysm. Lymph Nodes: ??No enlarged lymph nodes. Bowel: The stomach is distended. No smal l bowel obstruction or areas of abnormal small bowel wall thickening. Peritoneum and mesentery: No ascites, fr ee air, or loculated fluid collection. No mesenteric inflammation. Abdominal wall: Normal. Reproductive organs: Enlarged prostate g land Osseous structures: No suspicious lesion s. Procedure Note Andrez Stallworth MD - 10/07/2018Form atting of this note might be different from the original. EXAMINATION: CT CHEST ABDOMEN PELVIS W CONTRAST (GENERIC) CLINICAL HISTORY: h/o pancreatic cancer s/p treatment ? status of disease TECHNIQUE: Helical CT of the chest, abdo men, and pelvis was performed following intravenous administration of contrast. Administered 84.0 ml of OMNIPAQUE 350.00 mg/ml. COMPARISON: 04/04/2018 FINDINGS: Chest: Lungs and large airways: Stable. No pulm onary nodules or areas of airspace consolidation Pleura: No effusion. Heart/vasculature: MediPort catheter not ed with tip in the superior vena cava. Lymph nodes: No enlarged lymph nodes. Mediastinum and karen: Normal. Abdomen/pelvis: Liver: Normal size and attenuation witho ut lesions. Bile ducts: Nondilated. Gallbladder: Postcholecystectomy Pancreas: Post Whipple procedure since t he previous study. The remaining pancreatic parenchyma is moderately atro phic. No pancreatic ductal dilatation. The postoperative bed is unremarkable, w ithout evidence of complication or local disease recurrence. The mesenteric vesse ls are widely patent. Spleen: Normal. Adrenals: Normal. Kidneys: Normal. Urinary Bladder: Normal. Vasculature: No aneurysm. Lymph Nodes: No enlarged lymph nodes. Bowel: The stomach is distended. No smal l bowel obstruction or areas of abnormal small bowel wall thickening. Peritoneum and mesentery: No ascites, fr ee air, or loculated fluid collection. No mesenteric inflammation. Abdominal wall: Normal. Reproductive organs: Enlarged prostate g land Osseous structures: No suspicious lesion s. IMPRESSION 1. Post Whipple procedure since the prev ious study. No evidence of local or distant disease recurrence. 2. The stomach is distended,; limited ev aluation of the gastrojejunostomy without enteric contrast. Clinical corre lation. Thank you for letting us participate in the care of this patient. For questions regarding this report, please contact e number below. Electronically signed by: Andrez calvert, [facility] ([phone]), at 10/07/2018 5:41 PM Fouzia Romo APRN IMG CT ORDERABLES documented in this encounter Visit Diagnoses Diagnosis Malignant neoplasm of pancreas, unspecif ied location of malignancy Malignant neoplasm of pancreas, unspecif ied location of malignancy documented in this encounter Care Teams Block Trimmer Relationship Specialty Start Date End Date Corrie Pacheco APRN PCP - General Family Medicine 04/04/18 [place] [address] documented as of this encounter
--- OUTSIDE RECORDS SUMMARY | 2022-02-23 01:43 | XMS_ITS | Encounter Summary ---
:1960 Author Organization [facility] Address [address] [place] [address] Care Team Providers Name Role Phone Corrie Pacheco APRN Primary Care Provider Encounter Details Date Type Department Care Team Description 07/24/2018 Clinical Support Hematology/Oncology Ольга Duke neoplasm of at [facility] LORETTA [place] pancreas, unspecified [address] [place] malignancy [id number] Social History Tobacco Use Types Packs/Day Years [...] encounter Progress Notes Ольга Duke, RD - 07/24/2018 10:00 AM EDT ONCOLOGY DIETITIAN FOLLOW UP NOTE Diagnosis: Pancreatic CA. ??? Malignant neoplasm of head of pancreas C25.0 ??? Exocrine pancreatic insufficiency K86.81 ??? Pancreatic cancer C25.9 Operations/Major Procedures: Operations: 05/05/2018 Surgeon(s) and Role: * Lázaro Collazo MD - Primary * Mary Ruiz MD - Resident-Surgeon Ranjan: Procedure(s): ROBOTIC PANCREATECTOMY,WHIPPLE, PARTIAL GASTRECTOMY W/ PANCREATOJEJUNOSTOMY MODIFIER ROBOT,BERNA DEL CASTILLO Patient being seen today for nutrition follow up. He is seen today for first post op Whipple visit with Dr Maximiliano Collazo. Patient is accompanied by his . Interim Nutrition History: Food Intake:___unchanged___increased__X_decreased - foods are bland or don't agree with him Some foods are unappealing to him now ie refined sugars, sweetened foods but finding he can toleratemore volume now. Am: Cottage cheese and fruit Fig newtons (inquires today about additional snack ideas) Two turkey sandwiches at lunch today - felt hungry and tolerated without issue Sudanese toast last night - two slices Low CHO, high protein shake Supplements: ___ Ensure/Ensure plus___Boost/Boost plus___Carnation Instant Breakfast___other Low CHO, high protein shake, chocolate Appetite: _ poor___fair___good___early satiety Beginning to increase, is able to tolerate more volume now Nausea:___no problems___controlled on antiemetics____uncontrolled with impaired oral intake Denies, discontinued Reglan a week ago, no change Vomiting:__X_no problems___occasional/unimpaired oral intake___frequent/impaired oral intake Chewing: ___no problems ___edentulous___dentures___needs modified diet Did not assess Swallowing: _none esophagitis _ dysphagia without significantly affecting oral intake ___dysphagia with impaired oral intake Did not assess Taste alteration: ___no problems___dysgeusia___hypogeusia_X__impairs oral intake Hypogeusia Mouth Sores: ___none___present, but does not impair oral intake___present, impaired oral intake Did not assess Xerostomia:___none___present, but does not impair oral intake___present, impaired oral intake Did not assess Bowels:___normal__x_diarrhea___constipation___gas/bloating____hiccups dosing Creon 24 : 1 with meals . + gas. Inquired about dosing more with larger meals Other:____uncontrolled pain with impaired oral intake___depression___limited social support____limited financial resources Increasing energy--now walking his dogs Objective: 07/18/18: 1.8% decr in one week; severe Wt Readings from Last 3 Encounters: 07/22/18 68.5 kg (151 lb) 07/18/18 67.4 kg (148 lb 11.2 oz) 07/10/18 68.7 kg (151 lb 6.4 oz) 07/08/18: 9.3% decr in 2 weeks; severe 06/19/18: Gain Weight History: UBW: 231 pounds %UBW: IBW: %IBW: Weight loss%: Lost 60 pounds over the past 7-8 mos by modifying diet, incr activity, but unintentional weight loss of 17 pounds sinceThanksgiving or 10% weight loss. Comfortable at~ 170 lbs. ?? Kcal needs estimated at: 2130 at 30kcals/Kg Protein needs estimated at: 107 at 1.5g/kg __ Stable __ Increased _ Decreased %weight loss/time : ____mild____moderate____significant Physical: ___ascites ____edema ___obvious muscle wasting Pertinent Labs: Reviewed Medications: Reviewed Assessment/Plan: Weight rebounded. Reports diarrhea started today, which is also his disconnect day. Diarrhea after CIB w/ Milk with last cycle. Suggested using almond milk; he hasn't tried this yet. Discussed potentially using unflavored protein powder or other protein-rich food sources. He increased Creon intake to two 24,000 with meals and is continuing to play around with the dose at smaller meals. We again discussed increasing back to two when he eats. Despite decr intake, he may have greater asynchrony of digestion, as evidence by diarrhea, unintentional weightloss, and increased gas. D/t cold sensitivity, suggested hot CIB. Provided samples. Will follow up with Mr. Combs in 2 weeks. Provided him contact information should questions arise prior to that. Ed material provided: -- protein needs and sources -- FASS documented in this encounter Plan of Treatment Upcoming Encounters Date Type Specialty Care Team Description 02/23/2022 Office Visit Hematology and Oncology Gigi Sosa MD [facility] [place] [address] Ebonie Gordon APRN [address] [place] [address] DR MEDICAL ONCOLOGY [place], [place] [id number] documented as of this encounter Visit Diagnoses Diagnosis Malignant neoplasm of pancreas, unspecif ied location of malignancy documented in this encounter Care Teams Electric Meter Tester Relationship Specialty Start Date End Date Corrie Pacheco APRN PCP - General Family Medicine 04/04/[address] [place], [place] [address] documented as of this encounter
--- OUTSIDE RECORDS SUMMARY | 2022-02-23 01:43 | XMS_ITS | Encounter Summary ---
:1960 Author Organization [facility] [place] [address] Care Team Providers Name Role Phone Corrie Pacheco APRN Primary Care Provider Reason for Visit Reason Comments Chemotherapy Cycle 7 Day 1 Folfirinox Treatment/Therapy Plan Authorization (Routine) - Closed Specialty Diagnoses / Procedures Referred By Contact Refer red To Contact Hematology and Diagnoses Malignant neoplasm of head of pancreas Gigi Sosa Stj Hem Onc Oncology Procedures TC APREPITANT, 1 MG, INJECTION TC PALONOSETRON HCL, 25MCG, INJECTION (ALOXI) TC OXALIPLATIN, 0.5MG, INJECTION (ELOXATIN) TC IRINOTECAN, 20MG (CAMPTOSAR) TC FLOUROURACIL, 500MG MD Infusion [address] [place]OGY [address] [place] [address] Referral ID Status Reason Start Date Expiration Date Visits Requ ested Visits Authorized [id number] Closed 06/06/2018 06/06/2019 30 30 Encounter Details Date Type Department Care Team Description 09/15/2018 Infusion Hematology Oncology at [facility] lignant neoplasm of head [facility] of [address] [phone] Social History Tobacco Use [...] documented as of this encounter Progress Notes Laura Robertson RN - 09/15/2018 8:30 AM EDT INFUSION THERAPY ADMINISTRATION NOTES DIAGNOSIS: Pancreatic cancer CYCLE #7, Day 1 REASON FOR VISIT: FOLFIRONOX infusion and initiation of continunous home 5FU infusion via CADD pump provided by [employer] MASTER Jaciel offers no complaints. OBJECTIVE LAB DATA: Labs reviewed and found adequate for treatment. Seen today by Fouzia Romo APRN. Pre administration: Chemotherapy orders independently verified for drug name, route, and dosage per patient's height, weight and BSA by Stella Robertson RN and Rick Mercer [facility]. At time of administration Patient identity [...] treatment well. PLAN Return to clinic on 09/17/18 @ 1045 for disconnect and hydration. documented in this encounter Plan of Treatment Upcoming Encounters Date Type Specialty Care Team Description 02/23/2022 Office Visit Hematology and Oncology Gigi Sosa MD [facility] [place] [address] Ebonie Gordon [address] [place] [address] documented as of this encounter Procedures Procedure Name Priority Date/Time Associated Diagnosis Comme nts LAB SCAN 09/15/2018 12:00 AM Results for this EDT procedure are i n the results section . documented in this encounter Results SCAN DOC: LAB (09/15/2018 12:00 AM EDT) Narrative 09/15/2018 12:00 AM EDT This result has an [...] Dose Rate Site aprepitant (CINVANTI) injection Given 09/15/2018 8:58 AM EDT 130 mg Emul 130 mg 130 mg, Intravenous, ONCE, 1 dose, On 09/15/18 at 0900, Alternative administration of IV push over 2 minutes is a recommendation from the brush finisher., Routine atropine injection 0.5 mg Given 09/15/2018 11:11 AM EDT 0.5 mg 0.5 mg, Intravenous, ONCE, 1 dose, On Sat09/15/18 at 0900, Administer prior to IRINOtecan, Routine dexamethasone (DECADRON) tablet 8 mg Given 09/15/2018 8:53 AM EDT 8 mg 8 mg, Oral, ONCE, 1 dose, On Sat09/15/18 at 0900, Administer prior to chemotherapy, Routine fluorouracil (ADRUCIL) 4,440 mg in Given 09/15/2018 12:56 PM EDT 4,440 mg 3 mL/hr sodium chloride 0.9% 138 mL chemo infusion 4,440 mg (2,400 mg/m2/dose ? 1.85 m2 Treatment Plan BSA from Recorded weight), Intravenous, ONCE, 1 dose, On Sat09/15/18 at 1230, Administer over 46 Hours, Warning Vesicant/Irritant Medication , To be infused via an ambulatory infusion CADD Legacy Plus pump continuously IV at 3 mL/hr for 46 hours. Pump contains a 46 hour supply and provides a daily dose of 1200 mg/m2/day = 2400 mg/m2 IV over 46 hours. IRINOtecan (CAMPTOSAR) 260 mg in New Bag 09/15/2018 11:13 AM E DT 260 mg 342 mL/hr dextrose 5% 513 mL chemo infusion 260 mg, Intravenous, ONCE, 1 dose, On Sat09/15/18 at 1000, Administer over 90 Minutes, Dose Ordered = 278 mg (150 mg/m2). Pharmacist rounded dose per procedure. ondansetron (ZOFRAN) injection 8 mg Given 09/15/2018 8:56 AM EDT 8 mg 8 mg, Intravenous, ONCE, 1 dose, On Sat09/15/18 at 0900 OXALIplatin (ELOXATIN) 150 mg in New Bag 09/15/2018 9:34 AM ED T 150 mg 198 mL/hr dextrose 5% 280 mL chemo infusion 150 mg, Intravenous, ONCE, 1 dose, On Sat09/15/18 at 1000, Administer over 85 Minutes, Administer first. Compatible with dextrose-containing solution only. , Warning Vesicant/Irritant Medication , Dose Ordered = 157 mg (85 mg/m2). Pharmacist rounded dose per procedure. documented in this encounter Care Teams Official Court Reporter Relationship Specialty Start Date End Date Corrie Pacheco APRN PCP - General Family Medicine 04/04/18 [address] [place] [address] documented as of this encounter
--- OUTSIDE RECORDS SUMMARY | 2022-02-23 01:43 | XMS_ITS | Encounter Summary ---
:1960 Author Organization [facility] [place] [address] Care Team Providers Name Role Phone Corrie Pacheco APRN Primary Care Provider Reason for Visit Reason Comments IV Access 5FU pump disconnect Other Hydration IV Medication Antiemetics Treatment/Therapy Plan Authorization (Routine) - Closed Specialty Diagnoses / Procedures Referred By Contact Refer red To Contact Hematology and Diagnoses Malignant neoplasm of head of pancreas Gigi Sosa Stj Hem Onc Oncology Procedures TC APREPITANT, 1 MG, INJECTION TC PALONOSETRON HCL, 25MCG, INJECTION (ALOXI) TC OXALIPLATIN, 0.5MG, INJECTION (ELOXATIN) TC IRINOTECAN, 20MG (CAMPTOSAR) TC FLOUROURACIL, 500MG MD Infusion [address] [place]OGY [address] [place] [address] Referral ID Status Reason Start Date Expiration Date Visits Requ ested Visits Authorized [id number] Closed 06/06/2018 06/06/2019 30 30 Encounter Details Date Type Department Care Team Description 11/12/2018 Infusion Hematology Oncology at [facility] lignant neoplasm of [facility] pancreas [address] [place] [phone] Social History Tobacco Use Types [...] place to sleep or slept in a penitentiary (including now)? Sex Assigned at Date Recorded Male 07/24/2020 7:58 PM EDT documented as of this encounter Progress Notes Zuly Reyes RN - 11/12/2018 10:30 AM EDT INFUSION THERAPY ADMINISTRATION NOTES DIAGNOSIS: [...] MD [facility] [place] [address] Ebonie Gordon, DAMIEN [address] [place] [address] [place] [address] documented as of this encounter Visit Diagnoses Diagnosis Malignant neoplasm of head of pancreas documented in this encounter Administered Medications Inactive Administered Medications - up to 3 most recent administrations Medication Order MAR Action Action Date Dose Rate Site dexamethasone (DECADRON) injection Given 11/12/2018 11:47 AM EDT 8 mg 8 mg 8 mg, Intravenous, ONCE, 1 dose, On Sat11/12/18 at 1145 heparin, porcine 100 unit/mL flush 500 Given 11/12/2018 12:33 PM EDT 500 Units Units 500 Units, Intravenous, ONCE PRN, Starting on Sat11/12/18 at 1123, Until Sat11/12/18 at 1554, Line Care, Refer to Intravenous (IV) Procedure: Accessing Implanted Vascular Access Devices (654) procedure and/or Intravenous (IV) Job Aid: Adult Flushing & Catheter Care (8442) job aid for additional information regarding guidelines and administration., Routine palonosetron (ALOXI) injection 0.25 mg Given 11/12/2018 11:47 AM EDT 0.25 mg 0.25 mg, Intravenous, ONCE, 1 dose, On Sat11/12/18 at 1145, Routine sodium chloride 0.9 % (flush) flush 5-20 mL Given 11/12/2018 12:33 PM EDT 20 mLs 5-20 mL, Intravenous, EVERY 1 MIN PRN, Starting on Sat11/12/18 at 1123, Until Sat11/12/18 at 1554, Line Care, Flush pertains to all indwelling lines. Flush per protocol found in the job aid using the link provided on this medication record. Refer to Intravenous (IV) Job Aid: Adult Flushing & Catheter Care (7293) job aid for additional information regarding guidelines and administration., Routine sodium chloride 0.9% infusion New Bag 11/12/2018 11:30 AM EDT 1,000 mL/hr 1000 mL/hr 1,000 mL/hr, Intravenous, CONTINUOUS, Starting on Sat11/12/18 at 1145, Until Sat11/12/18 at 1244 documented in this encounter Care Teams Instructional Support Assistant Relationship Specialty Start Date End Date Corrie Pacheco APRN PCP - General Family Medicine 04/04/18 [address] [place] [place] [address] documented as of this encounter
--- OUTSIDE RECORDS SUMMARY | 2022-02-23 01:43 | XMS_ITS | Encounter Summary ---
:1960 Author Organization [facility] [place] [address] Care Team Providers Name Role Phone Corrie Pacheco APRN Primary Care Provider Encounter Details Date Type Department Care Team Description 08/07/2018 Orders Only Hematology and Tricia Garcia, Exocrine pancreatic insufficiency; Oncology at [facility] Malignant neoplasm of head of pancreas; [facility] [address] Severe protein-calorie malnutrition [facility] INTERNAL MEDICINE [place] [phone] Social History Tobacco Use Types Packs/Day Years [...] place to sleep or slept in a prison (including now)? Sex Assigned at Date Recorded Male 07/24/2020 7:58 PM EDT documented as of this encounter Plan of Treatment Upcoming Encounters Date Type Specialty Care Team Description 02/23/2022 Office Visit Hematology and Oncology Gigi Sosa MD [facility] [place] [address] Ebonie Gordon, [address] [place] [address] documented as of this encounter Results (ABNORMAL) Vitamin D, 25-Hydroxy (11/04/2018 9:05 AM EDT) athologist Signature 25-OH Vit D 29 (L) 30 - 100 [facility] Total ng/mL [facility] Comment: Deficient <10 ng/mL Insufficient 10 to 29 ng/mL Sufficient 30 to 100 ng/mL Potential Intoxication >100 ng/mL According to the US National Osteoporosi s Foundation, Vitamin D concentrations >30 ng/mL are sufficient to protect bone health. ??The National Kidney Foundation has similarly stated that pat ients with Vitamin D concentrations <30ng/mL should be considered to be insu fficient or deficient. http://[employer].Fashiontrot/nkf-guidelines http://[employer]ashion[employer]/nejm-VitD The [employer] Vitamin D Immunoassay detec ts both 25-OH Vitamin D2 and 25-OH Vitamin D3, but only a total Vitamin D c oncentration is reported. Specimen Anatomical Collection Method Collection Time Receive d Time (Source) Location / / Volume Laterality Blood specimen 11/04/2018 9:05 AM 019 (specimen) EDT 11:16 AM EDT Resulting Agency Comment Spec In Lab Tricia Balderas Radha ROPERN CHEMISTRY ORDERABLES Performing Organization Address City/[facility]/[place] [address] (ABNORMAL) Ferritin (11/04/2018 9:05 AM EDT) athologist Signature Ferritin 826 (H) 30 - 400 [facility] JOSELINE ng/mL [facility] Comment: Pediatric reference ranges not verified at [facility], interpret with caution. Reference ranges for females greater faheem n 50 years of age approach values for men, i.e., 30-400 ng/mL. Specimen Anatomical Collection Method Collection Time Receive d Time (Source) Location / / Volume Laterality Blood specimen 11/04/2018 9:05 AM 019 9:17 (specimen) EDT AM EDT Resulting Agency Comment Spec In Lab Tricia Balderas Radha ROPERN CHEMISTRY ORDERABLES Performing Organization Address [facility]/[place] [address] (ABNORMAL) Iron and TIBC (11/04/2018 9:05 AM EDT) athologist Signature Iron 50 45 - 160 KAYY JOSELINE mcg/dL [facility] TIBC 296 250 - 450 [facility] JOSELINE mcg/dL [facility] Iron Saturation 17 (L) 20 - 50 % [facility] Specimen Anatomical Collection Method Collection Time Receive d Time (Source) Location / / Volume Laterality Blood specimen 11/04/2018 9:05 AM 019 9:17 (specimen) EDT AM EDT Resulting Agency Comment Spec In Lab Tricia Balderas Radha ROPERN CHEMISTRY ORDERABLES Performing Organization Address [facility]/ZIP Code [place] [facility] [place] [address] documented in this encounter Visit Diagnoses Diagnosis Exocrine pancreatic insufficiency Other specified disease of pancreas Malignant neoplasm of head of pancreas Severe protein-calorie malnutrition Other severe protein-calorie malnutritio n documented in this encounter Care Teams Negative Checker Relationship Specialty Start Date End Date Corrie Pacheco APRN PCP - General Family Medicine 04/04/18 [place] [address] documented as of this encounter
--- OUTSIDE RECORDS SUMMARY | 2022-02-23 01:43 | XMS_ITS | Encounter Summary ---
:1960 Author Organization [facility] [place] [address] Care Team Providers Name Role Phone Corrie Pacheco APRN Primary Care Provider Reason for Visit Reason Comments Chemotherapy Cycle 6, Day 3 - Home therap y disconnect IV Medication hydration/meds Treatment/Therapy Plan Authorization (Routine) - Closed Specialty Diagnoses / Procedures Referred By Contact Refer red To Contact Hematology and Diagnoses Malignant neoplasm of head of pancreas Gigi Sosa St[facility] Hem Onc Oncology Procedures TC APREPITANT, 1 MG, INJECTION TC PALONOSETRON HCL, 25MCG, INJECTION (ALOXI) TC OXALIPLATIN, 0.5MG, INJECTION (ELOXATIN) TC IRINOTECAN, 20MG (CAMPTOSAR) TC FLOUROURACIL, 500MG MD Infusion [address] ONCOLOGY [phone] [place] [address] Referral ID Status Reason Start Date Expiration Date Visits Requ ested Visits Authorized [id number] Closed 06/06/2018 06/06/2019 30 30 Encounter Details Date Type Department Care Team Description 09/03/2018 Infusion Hematology Oncology at [facility] lignant neoplasm of head [place] of pancreas [address] [place] [address] [phone] Social History Tobacco Use Types [...] Sign Reading Time Taken Comments Blood Pressure 115/63 09/03/2018 11:34 AM EDT Pulse 54 09/03/2018 11:34 AM EDT Temperature 36.8 ??C (98.2 ??F) 09/03/2018 11:34 AM EDT Respiratory Rate 18 09/03/2018 11:34 AM EDT Oxygen Saturation 100% 09/03/2018 11:34 AM EDT Inhaled Oxygen Concentration - - Weight 67.8 kg (149 lb 8 oz) 09/03/2018 11:34 AM EDT Height 167.6 cm (5' 5.98) 09/03/2018 11:34 AM EDT Body Mass Index 24.14 09/03/2018 11:34 AM EDT documented in this encounter Progress Notes Shira Jordan RN - 09/03/2018 10:00 AM EDT INFUSION THERAPY ADMINISTRATION NOTES DIAGNOSIS: Pancreatic cancer REASON FOR VISIT: Discontinue 5FU home infusion, flush and deaccess mediport. Hydration and meds. SUBJECTIVE: Jaciel denies any complaints. He has not been nauseated and bowel are moving normally. OBJECTIVE: REACTIONS (DESCRIPTION, TIME, INTERVENTION AND EFFECTIVENESS) none ASSESSMENT: Jaciel was awake, alert and he tolerated treatment well. Port flushed with 20 cc of NS and 500 unitsof heparin and de-accessed. PLAN: Return to clinic per routine. documented in this encounter Plan of Treatment Upcoming Encounters Date Type Specialty Care Team Description 02/23/2022 Office Visit Hematology and Oncology Gigi Sosa MD [facility] [place] [address] Ebonie Gordon, OPERATIONAL RISK MANAGER[address] [place] [address] documented as of this encounter Visit Diagnoses Diagnosis Malignant neoplasm of head of pancreas documented in this encounter Administered Medications Inactive Administered Medications - up to 3 most recent administrations Medication Order MAR Action Action Date Dose Rate Site dexamethasone (DECADRON) injection Given 09/03/2018 11:48 AM EDT 8 mg 8 mg 8 mg, Intravenous, ONCE, 1 dose, On Sat09/03/18 at 1100 heparin, porcine 100 unit/mL flush 500 Given 09/03/2018 12:45 PM EDT 500 Units Units 500 Units, Intravenous, ONCE PRN, Starting on Sat09/03/18 at 1042, Until Sat09/03/18 at 1615, Line Care, Refer to Intravenous (IV) Procedure: Accessing Implanted Vascular Access Devices (514) procedure and/or Intravenous (IV) Job Aid: Adult Flushing & Catheter Care (4583) job aid for additional information regarding guidelines and administration., Routine palonosetron (ALOXI) injection 0.25 mg Given 09/03/2018 11:46 AM EDT 0.25 mg 0.25 mg, Intravenous, ONCE, 1 dose, On Sat09/03/18 at 1100, Routine sodium chloride 0.9 % flush 5-20 mL Given 09/03/2018 12:45 PM EDT 20 mLs 5-20 mL, Intravenous, EVERY 1 MIN PRN, Starting on Sat09/03/18 at 1042, Until Sat09/03/18 at 1615, Line Care, Flush pertains to all indwelling lines. Flush per protocol found in the job aid using the link provided on this medication record. Refer to Intravenous (IV) Job Aid: Adult Flushing & Catheter Care (6490) job aid for additional information regarding guidelines and administration., Routine sodium chloride 0.9% infusion New Bag 09/03/2018 11:45 AM EDT 1,000 mL/hr 1000 mL/hr 1,000 mL/hr, Intravenous, CONTINUOUS, Starting on Sat09/03/18 at 1100, Until Sat09/03/18 at 1159 documented in this encounter Care Teams Corporate Event Planner Relationship Specialty Start Date End Date Corrie Pacheco APRN PCP - General Family Medicine 04/04/18 [place] [address] documented as of this encounter
--- OUTSIDE RECORDS SUMMARY | 2022-02-23 01:43 | XMS_ITS | Encounter Summary ---
:1960 Author Organization [facility] [address] Care Team Providers Name Role Phone Corrie Pacheco APRN Primary Care Provider Encounter Details Date Type Department Care Team Description 11/10/2018 Clinical Support Hematology/Oncology Ольга Duke Exoc rine pancreatic insufficiency; at [facility] [place] Malignant neoplasm of head o f pancreas [address] [place] [phone] Social History Tobacco Use Types Packs/Day Years [...] encounter Progress Notes Ольга Duke, RD - 11/10/2018 9:00 AM EDT Nutrition Assessment Note Assessment: [...] History:Gain Wt Readings from Last 3 Encounters: 11/10/18 73.1 kg (161 lb 3.2 oz) 11/04/18 68.5 kg (151 lb) 10/27/18 71.2 kg (157 lb) UBW:?231 pounds?%UBW: ?IBW: ?%IBW: ?Weight loss%: ?Lost [...] of ~ 7 lbs since last visit! Continues to take two Creon 24,000 w/ meals and snacks. Based off most recent Whipple labs, he is malabsorbing. Enrolled in Creon[employer]Course program to receivefree MVI to supplement (Complete Formulations D5000). Provided samples in the mean time for him to take. Follow Up: 4-6 weeks Whipple labs to be checked again in Feb/ Mar. Ed material provided: -- protein needs and sources -- FASS -- Oral care -- SCCA: Diarrhea Mgmt documented in this encounter Plan of Treatment Upcoming Encounters Date Type Specialty Care Team Description 02/23/2022 Office Visit Hematology and Oncology Gigi Sosa MD [facility] [place] [address] Ebonie Gordon APRN [address] [place] [address] DR MEDICAL ONCOLOGY [place], [place] [address] documented as of this encounter Visit Diagnoses Diagnosis Exocrine pancreatic insufficiency Other specified disease of pancreas Malignant neoplasm of head of pancreas documented in this encounter Care Teams Transitional Nurse Relationship Specialty Start Date End Date Corrie Pacheco APRN PCP - General Family Medicine 04/04/[address] [place], [place] [id number] documented as of this encounter
--- OUTSIDE RECORDS SUMMARY | 2022-02-23 01:43 | XMS_ITS | Encounter Summary ---
:1960 Author Organization [facility] [place] [address] Care Team Providers Name Role Phone Corrie Pacheco APRN Primary Care Provider Encounter Details Date Type Department Care Team Description 10/10/2018 Office Visit Hematology/Oncology Gigi Sosa Ma lignant neoplasm of at [facility] head of pancreas [address] [place] [phone] ONCOLOGY [phone] [place] [address] Social History Tobacco Use Types Packs/Day Years [...] Sign Reading Time Taken Comments Blood Pressure 112/77 10/10/2018 2:32 PM EDT Pulse 85 10/10/2018 2:32 PM EDT Temperature 36.8 ??C (98.2 ??F) 10/10/2018 2:32 PM EDT Respiratory Rate 18 10/10/2018 2:32 PM EDT Oxygen Saturation 100% 10/10/2018 2:32 PM EDT Inhaled Oxygen Concentration - - Weight 67.8 kg (149 lb 6.4 oz) 10/10/2018 2:32 PM EDT Height 167.7 cm (5' 6.02) 10/10/2018 2:32 PM EDT Body Mass Index 24.1 10/10/2018 2:32 PM EDT documented in this encounter Progress Notes Gigi Sosa MD - 10/10/2018 2:30 PM EDT Subjective: Patient ID: Jaciel Combs is a 57 y.o. male. Problem List: 1. Pancreatic cancer; [...] and may- catenin (negative for nuclear staining). [id number] is retained in lesional cells. ??Overall, the [...] - Began adjuvant chemotherapy with Folfirinox, s/p [address] c/a/p 10/07/18 - IMPRESSION 1. Post Whipple procedure since the previous study. No evidence of local or distant disease recurrence. 2. The stomach is distended,; limited evaluation of the gastrojejunostomy without enteric contrast.Clinical correlation. HPI Mr. Combs is seen in f/u of pancreatic cancer. The history is summarized above. On 05/05/18 he underwent a robotic Whipple procedure by Dr. Collazo. The path report is above. On 06/25/18, he began adjuvant chemotherapy with Folfirinox. On presentation today, he is accompanied by his Demi. He has been doing well overall. Today he had an episode of emesis which is unusual for him at this point in his cycle of therapy. This was notpreceded by nausea. In general he has been eating well. His weight today is lower than the last visit but within his usual range. He is taking Creon. Overall he has tolerated chemotherapy very well. 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 He has some fatigue and does rest a lot. He goes into work on occasion to catch up on things. He has no pain. He is eating well. This has improved and he is putting some weight back on. 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 Negative for activity change, appetite change, fever [...] is normal. Vitals reviewed. Labs: WBC/ANC - 5., Hgb/Hct - 12/35.1, Plts - 188,000. BUN/Cr - 19/0.71. Alb - 3.2. Alk phos - 126, AST/ALT - 70/107. Lytes and LFTs o/w unremarkable CA 19-9 06/06/18 3 04/15/[address] personally reviewed, report above Assessment and Plan: Mr. Combs is a 57 yo male seen in f/u of pancreatic cancer. He presented in late 03/[address] was done at [facility] and showed intra and extrahepatic biliary ductal dilatation and question of a mass in the duodenum or head of the pancreas. He was [place] [facility] [place] on 04/04/18 underwent an ERCP with [...] the pancreatic head and abuts the duodenum. Therewas no vascular involvement. On 05/05/18 he underwent a robotic whipple procedure. The path is above - well differentiated adenocarcinoma with invasion of peripancreatic soft tissues, pT2. 2 LNs were seen, both negative, pN0. The margins of resection were negative. Of note, no acinar differentiation was seen in this specimen. On 06/25/18, he began adjuvant chemotherapy with Folfirinox and has received 8 of a planned [address] was done on 10/07/18. This shows no evidence of metastatic disease. We will plan to proceed with cycle 9 on 10/13 as planned and we will see him in two weeks. documented in this encounter Plan of Treatment Upcoming Encounters Date Type Specialty Care Team Description 02/23/2022 Office Visit Hematology and Oncology Gigi Sosa MD [facility] [place] [address] Ebonie Gordon APRN [address] [place] [address] DR MEDICAL ONCOLOGY [place], [place] [id number] documented as of this encounter Procedures Procedure Name Priority Date/Time Associated Diagnosis Comme nts LAB SCAN 10/10/2018 12:00 AM Results for this EDT procedure are i n the results section . documented in this encounter Results SCAN DOC: LAB (10/10/2018 12:00 AM EDT) Narrative 10/10/2018 12:00 AM EDT This result has an attachment that is no t available. Ordered by an unspecified provider. Scanning Provider MEDIA MGR SCAN EXT ORDR/RSLT documented in this encounter Visit Diagnoses Diagnosis Malignant neoplasm of head of pancreas documented in this encounter Care Teams Agricultural Produce Packer Relationship Specialty Start Date End Date Corrie Pacheco APRN PCP - General Family Medicine 04/04/[address] [place] [address] documented as of this encounter
--- OUTSIDE RECORDS SUMMARY | 2022-02-23 01:43 | XMS_ITS | Encounter Summary ---
:1960 Author Organization [facility] [place] [address] Care Team Providers Name Role Phone Corrie Pacheco APRN Primary Care Provider Encounter Details Date Type Department Care Team Description 09/15/2018 Clinical Support Hematology/Oncology Ольга Duke neoplasm of at [facility] L[place] head of pancreas [address] [place] [phone] Social History Tobacco Use Types Packs/Day [...] encounter Progress Notes Ольга Duke, RD - 09/15/2018 9:00 AM EDT Nutrition Assessment Note Assessment: 57 YO M with pancreatic cancer, s/p pancreaticoduodenectomy (Whipple resection), partialpancreatectomy on 05/05/[address] Collazo. He is here for . Nutrition Characteristics: Characteristics Severity Insufficient Energy Intake Intake increased Unintended Weight Loss Weight rebounded; then gained Loss of Subcutaneous Fat Loss of Muscle Mass Fluid Accumulation Diminished Functional Capacity Nutrition Support: None Anthropometric Assessment: Weight History: Wt Readings from Last 3 Encounters: 09/15/18 68.2 kg (150 lb 6.4 oz) 09/03/18 67.8 kg (149 lb 8 oz) 09/01/18 67.5 kg (148 lb 12.8 oz) UBW:?231 pounds?%UBW: ?IBW: ?%IBW: ?Weight loss%: ?Lost 60 pounds over the past 7-8 mos??by modifying diet, incr activity, but unintentional weight loss of 17 pounds??sinceThanksgiving??or 10% weight loss. Comfortable at~ 170 lbs. ?? Kcal needs estimated at:??2130 at 30kcals/Kg?Protein needs estimated at: 107 at 1.5g/kg Nutrition Diagnosis Sticking to smaller, frequent meals. Appetite andstomach capacity is improving; able to eat larger portions. Continues to take at least 2 Creon 24,000 at meals, will take more if full meal. Dysgeusia continues to improve and he is sticking with foods he knows he looks. Avoiding sweet things, as they don't set well. Weight rebounded. Increased brushing teeth, not doing baking soda/salt rinses. Intervention: Recommended baking soda/salt rinses before and after meals to help with dysgeusia and xerostomia. Reviewed fluid needs w/ diarrhea and importance of electrolyte repletion. Follow Up: In 4 weeks when he returns to clinic. Note: Please see Hematology/Oncology malnutrition flowsheet for complete RD assessment/documentation Ed material provided: -- protein needs and sources -- FASS -- Oral care -- SCCA: Diarrhea Mgmt documented in this encounter Plan of Treatment Upcoming Encounters Date Type Specialty Care Team Description 02/23/2022 Office Visit Hematology and Oncology Gigi Sosa MD [facility] [place] [address] Ebonie Gordon APRN [address] [place] [address] DR MEDICAL ONCOLOGY [place], [place] [address] documented as of this encounter Visit Diagnoses Diagnosis Malignant neoplasm of head of pancreas documented in this encounter Care Teams Reading Professor Relationship Specialty Start Date End Date Corrie Pacheco APRN PCP - General Family Medicine 04/04/[address] [place] [address] documented as of this encounter
--- OUTSIDE RECORDS SUMMARY | 2022-02-23 01:43 | XMS_ITS | Encounter Summary ---
:1960 Author Organization [facility] [place] [address] Care Team Providers Name Role Phone Corrie Pacheco APRN Primary Care Provider Reason for Referral Diagnostic Test (Routine) - Closed Specialty Diagnoses / Procedures Referred By Contact Refer red To Contact Radiology Diagnoses Malignant neoplasm of pancreas, unspecified location of malignancy Fouzia Romo APRN [facility] Rad Ct Scan Procedures CT Chest Abdomen Pelvis w Contrast (Generic) [facility] [place] [address] [place] [address] Referral ID Status Reason Start Date Expiration Date Visits V isits Requested Authorized [id number] Closed Specialty 10/03/2018 2018 1 1 Service Requested Reason for Visit Diagnostic Test (Routine) - Closed Specialty Diagnoses / Procedures Referred By Contact Refer red To Contact Radiology Diagnoses Malignant neoplasm of pancreas, unspecified location of malignancy Fouzia Romo APRN [facility] Rad Ct Scan Procedures CT Chest Abdomen Pelvis w Contrast (Generic) [facility] [place] [address] [place] [address] Referral ID Status Reason Start Date Expiration Date Visits V isits Requested Authorized [id number] Closed Specialty 10/03/2018 2018 1 1 Service Requested Encounter Details Date Type Department Care Team Description 10/07/[address] Scan at [facility] Fouzia Romo, Malignant neoplasm [facility] CORRECTIONAL THERAPY DIRECTOR of pancreas, Drive [facility] unspecified location [facility] DR of malignancy [phone] RADIATION [phone] [place] [address] Social History Tobacco Use Types Packs/Day Years [...] Sig Dispensed Refills Start Date End Date prochlorperazine Take 1 tablet by 30 tablet 5 06/06/2018 (COMPAZINE) 10 mg mouth every 6 TabletIndications: hours as needed Malignant neoplasm of head for Nausea. of pancreas, Drug-induced nausea and vomiting [id number] Take 1-2 capsules 270 capsule 3 05/0710/25/2018 (CREON) 24,000-76,000 by mouth 3 times -120,000 unit Capsule, daily (with Delayed meals). With Release(E.C.)Indications: Meals: Take 1-2 Exocrine pancreatic capsules by insufficiency mouth. With Snacks: Take 1 capsule by mouth. omeprazole (PRILOSEC) 40 Take 1 capsule by 90 capsule 3 05/0602/19/2019 mg Capsule, Delayed mouth daily for Release(E.C.)Indications: 360 days. Exocrine pancreatic insufficiency acetaminophen (TYLENOL) Take 2 tablets by 0 05/1205/19/2019 325 mg Tablet mouth every 6 hours as needed for Pain. docusate sodium (COLACE) Take 1 capsule by 0 11/201801/02/2019 100 mg Capsule mouth 2 times daily as needed for Constipation. documented as of this encounter Plan of Treatment Upcoming Encounters Date Type Specialty Care Team Description 02/23/2022 Office Visit Hematology and Oncology Gigi Sosa MD [facility] [place] [address] Ebonie Gorodn, DAMIEN [address] [place] [address] [place] [address] documented as of this encounter Procedures Procedure Name Priority Date/Time Associated Diagnosis Comme nts CT CHEST ABDOMEN Routine 10/07/2018 4:14 PM Malignant neoplasm Results for this PELVIS W CONTRAST EDT of pancreas, procedure are in (GENERIC) unspecified location the res ults of malignancy section. documented in this encounter Results CT [...] number below. ? Electronically signed by: Andrez calvert [facility] ([phone]), at 10/07/2018 5:41 PM Narrative 10/07/2018 5:41 [...] e number below. Electronically signed by: Andrez Ramon os, [facility] ([phone]), at 10/07/2018 5:41 PM Fouzia Romo CORRECTIONAL THERAPY DIRECTOR IMG CT ORDERABLES documented in this encounter Visit Diagnoses Diagnosis Malignant neoplasm of pancreas, unspecif ied location of malignancy documented in this encounter Administered Medications Inactive Administered Medications - up to 3 most recent administrations Medication Order MAR Action Action Date Dose Rate Site iohexol (OMNIPAQUE) 350 mg/mL Given 10/07/2018 4:14 PM EDT 84 mL s solution 0-200 mL 0-200 mL, Intravenous, ONCE PRN, 1 dose, Starting on Sat10/07/18 at 1614, Until Sat10/07/18 at 1614, Per Protocol, Warning Vesicant/Irritant Medication , Radiology Contrast, Routine documented in this encounter Care Teams Candy Packer Relationship Specialty Start Date End Date Corrie Pacheco APRN PCP - General Family Medicine 04/04/18 Hector [place] [facility] [place] [address] documented as of this encounter
--- OUTSIDE RECORDS SUMMARY | 2022-02-23 01:43 | XMS_ITS | Encounter Summary ---
:1960 Author Organization [facility] [place] [address] Care Team Providers Name Role Phone Corrie Pacheco APRN Primary Care Provider Reason for Visit Reason Comments Other Cycle 9, Day 3; 5FU pump dis connect, hydration & antiemetics Treatment/Therapy Plan Authorization (Routine) - Closed Specialty Diagnoses / Procedures Referred By Contact Refer red To Contact Hematology and Diagnoses Malignant neoplasm of head of pancreas Gigi Sosa St[facility] Hem Onc Oncology Procedures TC APREPITANT, 1 MG, INJECTION TC PALONOSETRON HCL, 25MCG, INJECTION (ALOXI) TC OXALIPLATIN, 0.5MG, INJECTION (ELOXATIN) TC IRINOTECAN, 20MG (CAMPTOSAR) TC FLOUROURACIL, 500MG MD Infusion [address] [place]OG[place] [address] [place] [address] Referral ID Status Reason Start Date Expiration Date Visits Requ ested Visits Authorized [id number] Closed 06/06/2018 06/06/2019 30 30 Encounter Details Date Type Department Care Team Description 10/15/2018 Infusion Hematology Oncology at [facility] lignant neoplasm of head [place] of pancreas [address] [place] [phone] Social History Tobacco Use Types [...] Sign Reading Time Taken Comments Blood Pressure 105/60 10/15/2018 11:22 AM EDT Pulse 56 10/15/2018 11:22 AM EDT Temperature 36.6 ??C (97.9 ??F) 10/15/2018 11:22 AM EDT Respiratory Rate 20 10/15/2018 11:22 AM EDT Oxygen Saturation - - Inhaled Oxygen Concentration - - Weight - - Height - - Body Mass Index - - documented in this encounter Progress Notes Zuly Reyes RN - 10/15/2018 10:00 AM EDT INFUSION THERAPY ADMINISTRATION NOTES [...] [facility] [place] [address] Ebonie Gordon, [address] [address] documented as of this encounter Visit Diagnoses Diagnosis Malignant neoplasm of head of pancreas documented in this encounter Administered Medications Inactive Administered Medications - up to 3 most recent administrations Medication Order MAR Action Action Date Dose Rate Site dexamethasone (DECADRON) injection Given 10/15/2018 11:30 AM EDT 8 mg 8 mg 8 mg, Intravenous, ONCE, 1 dose, On Sat10/15/18 at 1130 heparin, porcine 100 unit/mL flush 500 Given 10/15/2018 12:28 PM EDT 500 Units Units 500 Units, Intravenous, ONCE PRN, Starting on Sat10/15/18 at 1114, Until Sat10/15/18 at 1500, Line Care, Refer to Intravenous (IV) Procedure: Accessing Implanted Vascular Access Devices (514) procedure and/or Intravenous (IV) Job Aid: Adult Flushing & Catheter Care (1746) job aid for additional information regarding guidelines and administration., Routine palonosetron (ALOXI) injection 0.25 mg Given 10/15/2018 11:30 AM EDT 0.25 mg 0.25 mg, Intravenous, ONCE, 1 dose, On Sat10/15/18 at 1130, Routine sodium chloride 0.9 % (flush) flush 5-20 mL Given 10/15/2018 12:28 PM EDT 20 mLs 5-20 mL, Intravenous, EVERY 1 MIN PRN, Starting on Sat10/15/18 at 1114, Until Sat10/15/18 at 1500, Line Care, Flush pertains to all indwelling lines. Flush per protocol found in the job aid using the link provided on this medication record. Refer to Intravenous (IV) Job Aid: Adult Flushing & Catheter Care (3248) job aid for additional information regarding guidelines and administration., Routine sodium chloride 0.9% infusion New Bag 10/15/2018 11:25 AM EDT 1,000 mL/hr 1000 mL/hr 1,000 mL/hr, Intravenous, CONTINUOUS, Starting on Sat10/15/18 at 1130, Until Sat10/15/18 at 1229 documented in this encounter Care Teams Bender Machine Operator Relationship Specialty Start Date End Date Corrie Pacheco APRN PCP - General Family Medicine 04/04/[address] [place] [place] [address] documented as of this encounter
--- OUTSIDE RECORDS SUMMARY | 2022-02-23 01:43 | XMS_ITS | Encounter Summary ---
:1960 Author Organization [facility] [place] [address] Care Team Providers Name Role Phone Corrie Pacheco APRN Primary Care Provider Encounter Details Date Type Department Care Team Description 11/24/2018 Office Visit Hematology/Oncology Darling Romeo Ma lignant neoplasm of at [facility] CDAMIEN pancreas, unspecified [address] [facility] location of [place], [place] maligna [facility] [id number] [phone] (Wo rk) Social History Tobacco Use Types [...] Sign Reading Time Taken Comments Blood Pressure 123/68 11/24/2018 8:03 AM EDT Pulse 63 11/24/2018 8:03 AM EDT Temperature 36.7 ??C (98.1 ??F) 11/24/2018 8:03 AM EDT Respiratory Rate 18 11/24/2018 8:03 AM EDT Oxygen Saturation 100% 11/24/2018 8:03 AM EDT Inhaled Oxygen Concentration - - Weight 73.3 kg (161 lb 9.6 oz) 11/24/2018 8:03 AM EDT Height 167.6 cm (5' 5.98) 11/24/2018 8:03 AM EDT Body Mass Index 26.1 11/24/2018 8:03 AM EDT documented in this encounter Progress Notes Darling Romeo, RESEARCH ASSOCIATE - 11/24/2018 8:00 AM EDT Subjective: Patient ID: Jaciel Combs [...] and may- catenin (negative for nuclear staining). [id number] is retained in lesional cells. ??Overall, the [...] of the gastrojejunostomy without enteric contrast.Clinical correlation. HPI: Mr. Combs is seen in f/u of pancreatic cancer. The history is summarized above. On 05/05/18 he underwent a robotic Whipple procedure by Dr. Collazo. The path report is above. On 06/25/18, he began adjuvantchemotherapy with Folfirinox. Interim History: Jaciel Combs returns to clinic today for labs and toxicity assessment prior to day 1, cycle 12 of chemotherapy. He reports occasional diarrhea after therapy, for which he uses Imodium. He denies pain, fever, chills, night sweats or unusual bleeding. PMH, PSH, FH, and SH: Unchanged since previous office visit Review of Systems Constitutional: Negative. HENT: Negative. Eyes: Negative. Respiratory: Negative. Cardiovascular: Negative. Gastrointestinal: Negative. Endocrine: Negative. Genitourinary: Negative. Musculoskeletal: Negative. Skin: Negative. Allergic/Immunologic: Negative. Neurological: Negative. Hematological: Negative. Psychiatric/Behavioral: Negative. Objective: Physical Exam Constitutional: He is oriented to person, place, and time. He appears well- developed and well-nourished. HENT: Head: Normocephalic and atraumatic. Nose: Nose normal. Mouth/Throat: Oropharynx is clear and moist. Eyes: Conjunctivae and EOM are normal. Neck: Normal range of motion. Neck supple. Cardiovascular: Normal rate and regular rhythm. Pulmonary/Chest: Effort normal and breath sounds normal. Abdominal: Soft. Bowel sounds are normal. Musculoskeletal: Normal range of motion. Neurological: He is alert and oriented to person, place, and time. Skin: Skin is warm and dry. Psychiatric: He has a normal mood and affect. His behavior is normal. Vitals: BP 123/68 (Patient Position: Sitting) Pulse 63 Temp 36.7 ??C (98.1 ??F) (Oral) Resp 18 Ht 167.6 cm (5' 5.98) Wt 73.3 kg (161 lb 9.6 oz) SpO2 100% BMI 26.10 kg/m?? 11/24/18 LABs: WBC 5.02, Hgb./Hct. 12.6. 36.6, Plts. 157, ANC 2.91. Chem: Na+/K+ 141/4.1, BUN/Creat. 19/0.7, AST 34, ALT 61 Alk. Phos. 130H, Alb. 3.2. Assessment and Plan: 1. Pancreastic cancer. Currently being treated with Folfirinox every 2 weeks. 2. Reviewed lab results with patient. Proceed with chemotheray infusion today. 3. RTC in 4 weeks for labs and OV with . Darling Romeo, MSN, RESEARCH ASSOCIATE, AOCNP documented in this encounter Plan of Treatment Upcoming Encounters Date Type Specialty Care Team Description 02/23/2022 Office Visit Hematology and Oncology Gigi Sosa MD [facility] [place] [address] Ebonie Gordon APRN [address] [place] [address] DR MEDICAL ONCOLOGY [place], [place] [id number] documented as of this encounter Visit Diagnoses Diagnosis Malignant neoplasm of pancreas, unspecif ied location of malignancy documented in this encounter Care Teams Website Project Manager Relationship Specialty Start Date End Date Corrie Pacheco APRN PCP - General Family Medicine 04/04/18 [address] [place], [place] [address] documented as of this encounter
--- OUTSIDE RECORDS SUMMARY | 2022-02-23 01:43 | XMS_ITS | Encounter Summary ---
:1960 Author Organization [facility] [address] Care Team Providers Name Role Phone Corrie Pacheco APRN Primary Care Provider Reason for Visit Reason Comments Chemotherapy Cycle 8, Day 1 Folfirinox Treatment/Therapy Plan Authorization (Routine) - Closed Specialty Diagnoses / Procedures Referred By Contact Refer red To Contact Hematology and Diagnoses Malignant neoplasm of head of pancreas Gigi Sosa St[facility] Hem Onc Oncology Procedures TC APREPITANT, 1 MG, INJECTION TC PALONOSETRON HCL, 25MCG, INJECTION (ALOXI) TC OXALIPLATIN, 0.5MG, INJECTION (ELOXATIN) TC IRINOTECAN, 20MG (CAMPTOSAR) TC FLOUROURACIL, 500MG MD Infusion [address] ONCOLOGY [address] [place] [address] Referral ID Status Reason Start Date Expiration Date Visits Requ ested Visits Authorized [id number] Closed 06/06/2018 06/06/2019 30 30 Encounter Details Date Type Department Care Team Description 10/01/2018 Infusion Hematology Oncology at [facility] lignant neoplasm of head [facility] of [address] [phone] Social History Tobacco Use [...] documented as of this encounter Progress Notes Lui Arteaga, RN - 10/01/2018 8:30 AM EDT INFUSION THERAPY ADMINISTRATION NOTES DIAGNOSIS: Pancreatic cancer CYCLE #8, Day 1 REASON FOR VISIT: FOLFIRONOX infusion and initiation of continunous home 5FU infusion via CADD pump provided by [employer] MASTER Jaciel offers no complaints. OBJECTIVE LAB DATA: Labs reviewed by provider in clinic and found adequate for treatment. Pre administration: Chemotherapy orders independently verified for drug name, route, and dosage per patient's height, weight and BSA by Lui Arteaga, SHAWANDA and Rick Mercer [facility]. At time of administration Patient identity verified [...] treatment well. PLAN Return to clinic on 10/03/18 @1100 for disconnect and hydration. documented in this encounter Plan of Treatment Upcoming Encounters Date Type Specialty Care Team Description 02/23/2022 Office Visit Hematology and Oncology Gigi Sosa MD [facility] [place] [address] Ebonie Gordon SIGN MAINTENANCE [address] [address] [place] [address] documented as of this encounter Procedures Procedure Name Priority Date/Time Associated Diagnosis Comme nts LAB SCAN 10/01/2018 12:00 AM Results for this EDT procedure are i n the results section . documented in this encounter Results SCAN DOC: LAB (10/01/2018 12:00 AM EDT) Narrative 10/01/2018 12:00 AM EDT This result has an [...] Dose Rate Site aprepitant (CINVANTI) injection Given 10/01/2018 8:59 AM EDT 130 mg Emul 130 mg 130 mg, Intravenous, ONCE, 1 dose, On Sat10/01/18 at 0845, Alternative administration of IV push over 2 minutes is a recommendation from the quality assurance monitor chassis., Routine atropine injection 0.5 mg Given 10/01/2018 11:11 AM EDT 0.5 mg 0.5 mg, Intravenous, ONCE, 1 dose, On Sat10/01/18 at 0845, Administer prior to IRINOtecan, Routine dexamethasone (DECADRON) tablet 8 mg Given 10/01/2018 8:55 AM EDT 8 mg 8 mg, Oral, ONCE, 1 dose, On Sat10/01/18 at 0845, Administer prior to chemotherapy, Routine fluorouracil (ADRUCIL) 4,440 mg in Given 10/01/2018 1:02 PM EDT 4,440 mg 3 mL/hr sodium chloride 0.9% 138 mL chemo infusion 4,440 mg (2,400 mg/m2/dose ? 1.85 m2 Treatment Plan BSA from Recorded weight), Intravenous, ONCE, 1 dose, On Sat10/01/18 at 1215, Administer over 46 Hours, Warning Vesicant/Irritant Medication To be infused via an ambulatory infusion CADD Legacy Plus pump continuously IV at 3 mL/hr for 46 hours. Pump contains a 46 hour supply and provides a daily dose of 1200 mg/m2/day = 2400 mg/m2 IV over 46 hours with 12 mL of overfill in bag. IRINOtecan (CAMPTOSAR) 260 mg in New Bag 10/01/2018 11:17 AM E DT 260 mg 342 mL/hr dextrose 5% 513 mL chemo infusion 260 mg, Intravenous, ONCE, 1 dose, On Sat10/01/18 at 0945, Administer over 90 Minutes, Dose Ordered = 278 mg (150 mg/m2). Pharmacist rounded dose per procedure. ondansetron (ZOFRAN) injection 8 mg Given 10/01/2018 8:56 AM EDT 8 mg 8 mg, Intravenous, ONCE, 1 dose, On Sat10/01/18 at 0845 OXALIplatin (ELOXATIN) 150 mg in New Bag 10/01/2018 9:34 AM ED T 150 mg 198 mL/hr dextrose 5% 280 mL chemo infusion 150 mg, Intravenous, ONCE, 1 dose, On Sat10/01/18 at 0945, Administer over 85 Minutes, Administer first. Compatible with dextrose-containing solution only. , Warning Vesicant/Irritant Medication , Dose Ordered = 157 mg (85 mg/m2). Pharmacist rounded dose per procedure. documented in this encounter Care Teams Siebel Architect Relationship Specialty Start Date End Date Corrie Pacheco APRN PCP - General Family Medicine 04/04/18 Hector [place] [address] documented as of this encounter
--- OUTSIDE RECORDS SUMMARY | 2022-02-23 01:43 | XMS_ITS | Encounter Summary ---
:1960 Author Organization [facility] [place] [address] Care Team Providers Name Role Phone Corrie Pacheco APRN Primary Care Provider Reason for Visit Reason Comments Medication Refill Encounter Details Date Type Department Care Team Description 10/25/2018 Refill General Surgery at [facility] E xocrine pancreatic [facility] [address] [address] [place] [address] [phone] (Wo rk) Social History Tobacco Use Types [...] Visit Hematology and Oncology Gigi Sosa MD [facility] [address] Ebonie Gordon APRN [address] [place] [address] DR MEDICAL ONCOLOGY [place], [place] [id number] documented as of this encounter Visit Diagnoses Diagnosis Exocrine pancreatic insufficiency Other specified disease of pancreas documented in this encounter Care Teams Blasting Machine Operator Relationship Specialty Start Date End Date Corrie Pacheco APRN PCP - General Family Medicine 04/04/[address] [place], [place] [address] documented as of this encounter
--- OUTSIDE RECORDS SUMMARY | 2022-02-23 01:43 | XMS_ITS | Encounter Summary ---
:1960 Author Organization [facility] [place] [address] Care Team Providers Name Role Phone Corrie Pacheco APRN Primary Care Provider Encounter Details Date Type Department Care Team Description 10/27/2018 Office Visit Hematology/Oncology Darling Romeo Ma lignant neoplasm of at [facility] CDAMIEN pancreas, unspecified [address] [facility] location of [place], [place] maligna [facility] [address] [phone] (Wo rk) Social History Tobacco Use Types [...] Sign Reading Time Taken Comments Blood Pressure 117/68 10/27/2018 7:58 AM EDT Pulse 60 10/27/2018 7:58 AM EDT Temperature 36.7 ??C (98.1 ??F) 10/27/2018 7:58 AM EDT Respiratory Rate 18 10/27/2018 7:58 AM EDT Oxygen Saturation 100% 10/27/2018 7:58 AM EDT Inhaled Oxygen Concentration - - Weight 71.2 kg (157 lb) 10/27/2018 7:58 AM EDT Height 167.6 cm (5' 6) 10/27/2018 7:58 AM EDT Body Mass Index 25.34 10/27/2018 7:58 AM EDT documented in this encounter Progress Notes Darling Romeo, MACHINE PACKAGER - 10/27/2018 8:00 AM EDT Subjective: Patient ID: Jaciel [...] and may- catenin (negative for nuclear staining). [id number] is retained in lesional cells. ??Overall, the [...] 06/25/18, he began adjuvant chemotherapy with Folfirinox. Interim History: Jaciel Combs returns to clinic today without his spouse for labs, toxicity assessment and repeat evaluation prior to day 1, cycle 10 of chemotherapy. He reports occasional diarrhea after therapy, for which he uses Imodium. He denies pain, fever, chills, night sweats or unusual bleeding. PMH, PSH, FH, and SH: Unchanged since previous office visit. Review of Systems Constitutional: Negative. HENT: Negative. Eyes: Negative. Respiratory: Negative. Cardiovascular: Negative. Gastrointestinal: Positive for diarrhea. Genitourinary: Negative. Musculoskeletal: Negative. Skin: Negative. Neurological: Negative. Hematological: Negative. Psychiatric/Behavioral: Negative. Objective: Physical Exam Constitutional: He is oriented to person, place, and time. He appears well- developed and well-nourished. HENT: Head: Normocephalic and atraumatic. Nose: Nose normal. Mouth/Throat: Oropharynx is clear and moist. Eyes: Conjunctivae and EOM are normal. Neck: Normal range of motion. Neck supple. Cardiovascular: Normal rate, regular rhythm and normal heart sounds. Pulmonary/Chest: Effort normal and breath sounds normal. Abdominal: Bowel sounds are normal. Musculoskeletal: Normal range of motion. Neurological: He is alert and oriented to person, place, and time. Skin: Skin is warm and dry. Psychiatric: He has a normal mood and affect. His behavior is normal. Thought content normal. Vitals reviewed. Vitals: BP 117/68 (Patient Position: Sitting) Pulse 60 Temp 36.7 ??C (98.1 ??F) (Oral) Resp 18 Ht 167.6 cm (5' 6) Wt 71.2 kg (157 lb) SpO2 100% BMI 25.34 kg/m?? 10/27/18 LABs: WBC 3.6, Hgb./Hct. 11.3/33.5, Plts.112, ANC 1.85. Na+/K+ 143/3.8, BUN/Creat. 12/0.67, AST 34, ALT 53, Alk. Phos. 114, Alb. 2.9. Assessment and Plan: 1. Pancreatic cancer. Currently being treated with FOLFIRINOX. 2. Reviewed lab results with patient. Proceed with day 1, cycle 10 of therapy today. 3. RTC in 2 weeks for labs and repeat evaluation prior to day 1, cycle 11. Darling Romeo, MSN, MACHINE PACKAGER, AOCNP documented in this encounter Plan of Treatment Upcoming Encounters Date Type Specialty Care Team Description 02/23/2022 Office Visit Hematology and Oncology Gigi Sosa MD [facility] [place] [address] Ebonie Gordon APRN [address] [place] [address] DR MEDICAL ONCOLOGY [place], [place] [id number] documented as of this encounter Visit Diagnoses Diagnosis Malignant neoplasm of pancreas, unspecif ied location of malignancy documented in this encounter Care Teams Heel Attacher Wood Relationship Specialty Start Date End Date Corrie Pacheco APRN PCP - General Family Medicine 04/04/18 [address] [place], [place] [address] documented as of this encounter
--- OUTSIDE RECORDS SUMMARY | 2022-02-23 01:43 | XMS_ITS | Encounter Summary ---
:1960 Author Organization [facility] [place] [address] Care Team Providers Name Role Phone Corrie Pacheco APRN Primary Care Provider Reason for Visit Reason Comments IV Medication Cycle 3, Day 8; CADD pump di sconnect and hydration and meds Treatment/Therapy Plan Authorization (Routine) - Closed Specialty Diagnoses / Procedures Referred By Contact Refer red To Contact Hematology and Diagnoses Malignant neoplasm of head of pancreas Gigi Sosa Stj Hem Onc Oncology Procedures TC APREPITANT, 1 MG, INJECTION TC PALONOSETRON HCL, 25MCG, INJECTION (ALOXI) TC OXALIPLATIN, 0.5MG, INJECTION (ELOXATIN) TC IRINOTECAN, 20MG (CAMPTOSAR) TC FLOUROURACIL, 500MG MD Infusion [address] [place]OGY [address] [place] [address] Referral ID Status Reason Start Date Expiration Date Visits Requ ested Visits Authorized [id number] Closed 06/06/2018 06/06/2019 30 30 Encounter Details Date Type Department Care Team Description 10/03/2018 Infusion Hematology Oncology at [facility] lignant neoplasm of head [facility] of pancreas [address] [place] [phone] Social History Tobacco Use Types [...] encounter Progress Notes Irma Valero RN - 10/03/2018 11:00 AM EDT INFUSION THERAPY ADMINISTRATION NOTES DIAGNOSIS: [...] Sosa MD [facility] [place] [address] Ebonie Gordon, SENIOR APPLICATION SECURITY CONSULTANT [address] [place] [address] [place] [address] documented as of this encounter Visit Diagnoses Diagnosis Malignant neoplasm of head of pancreas documented in this encounter Administered Medications Inactive Administered Medications - up to 3 most recent administrations Medication Order MAR Action Action Date Dose Rate Site dexamethasone (DECADRON) injection Given 10/03/2018 12:08 PM EDT 8 mg 8 mg 8 mg, Intravenous, ONCE, 1 dose, On Sat10/03/18 at 1130 heparin, porcine 100 unit/mL flush 500 Given 10/03/2018 12:08 PM EDT 500 Units Units 500 Units, Intravenous, ONCE PRN, Starting on Sat10/03/18 at 1108, Until Sat10/03/18 at 1530, Line Care, Refer to Intravenous (IV) Procedure: Accessing Implanted Vascular Access Devices (864) procedure and/or Intravenous (IV) Job Aid: Adult Flushing & Catheter Care (7860) job aid for additional information regarding guidelines and administration., Routine palonosetron (ALOXI) injection 0.25 mg Given 10/03/2018 12:08 PM EDT 0.25 mg 0.25 mg, Intravenous, ONCE, 1 dose, On Sat10/03/18 at 1130, Routine sodium chloride 0.9 % flush 5-20 mL Given 10/03/2018 12:08 PM EDT 20 mLs 5-20 mL, Intravenous, EVERY 1 MIN PRN, Starting on Sat10/03/18 at 1108, Until Sat10/03/18 at 1530, Line Care, Flush pertains to all indwelling lines. Flush per protocol found in the job aid using the link provided on this medication record. Refer to Intravenous (IV) Job Aid: Adult Flushing & Catheter Care (4670) job aid for additional information regarding guidelines and administration., Routine sodium chloride 0.9% infusion New Bag 10/03/2018 12:08 PM EDT 1,000 mL/hr 1000 mL/hr 1,000 mL/hr, Intravenous, CONTINUOUS, Starting on Sat10/03/18 at 1130, Until Sat10/03/18 at 1229 New Bag 10/03/2018 11:13 AM EDT 1,000 mL/hr 1000 mL/hr documented in this encounter Care Teams Brickmason Helper Relationship Specialty Start Date End Date Corrie Pacheco APRN PCP - General Family Medicine 04/04/18 [address] [facility] [place] [address] documented as of this encounter
--- OUTSIDE RECORDS SUMMARY | 2022-02-23 01:43 | XMS_ITS | Encounter Summary ---
:1960 Author Organization [facility] [place] [address] Care Team Providers Name Role Phone Corrie Pacheco APRN Primary Care Provider Reason for Visit Reason Comments Chemotherapy FOLFIRINOX, Cycle 6, Day 1 Treatment/Therapy Plan Authorization (Routine) - Closed Specialty Diagnoses / Procedures Referred By Contact Refer red To Contact Hematology and Diagnoses Malignant neoplasm of head of pancreas Gigi Sosa Stj Hem Onc Oncology Procedures TC APREPITANT, 1 MG, INJECTION TC PALONOSETRON HCL, 25MCG, INJECTION (ALOXI) TC OXALIPLATIN, 0.5MG, INJECTION (ELOXATIN) TC IRINOTECAN, 20MG (CAMPTOSAR) TC FLOUROURACIL, 500MG MD Infusion [address] [place]OGY [address] [place] [address] Referral ID Status Reason Start Date Expiration Date Visits Requ ested Visits Authorized [id number] Closed 06/06/2018 06/06/2019 30 30 Encounter Details Date Type Department Care Team Description 09/01/2018 Infusion Hematology Oncology at [facility] lignant neoplasm of head [facility] of [address] [phone] Social History Tobacco Use [...] encounter Progress Notes Zuly Reyes RN - 09/01/2018 8:30 AM EDT INFUSION THERAPY ADMINISTRATION NOTES DIAGNOSIS: Pancreatic cancer CYCLE #6, Day 1 REASON FOR VISIT: FOLFIRONOX infusion and initiation of continunous home 5FU infusion via CADD pump provided by [employer] MASTER Jaciel offers no complaints. OBJECTIVE LAB DATA: Labs reviewed and found adequate for treatment. Seen today by Fouzia Romo APRN. Pre administration: Chemotherapy orders independently verified for drug name, route, and dosage per patient's height, weight and BSA by Zuly Reyes RN and Rick Mercer [facility]. At time of administration Patient identity [...] well. PLAN Return to clinic on , 09/03/18 @ 1130 for disconnect and hydration. documented in this encounter Plan of Treatment Upcoming Encounters Date Type Specialty Care Team Description 02/23/2022 Office Visit Hematology and Oncology Gigi Sosa MD [facility] [place] [address] Ebonie Gordon SOUR BLEACHING PLEATER [address] [place] [address] [place] [address] documented as of this encounter Procedures Procedure Name Priority Date/Time Associated Diagnosis Comme nts LAB SCAN 09/01/2018 12:00 AM Results for this EDT procedure are i n the results section . documented in this encounter Results SCAN DOC: LAB (09/01/2018 12:00 AM EDT) Narrative 09/01/2018 12:00 AM EDT This result has an [...] Dose Rate Site aprepitant (CINVANTI) injection Given 09/01/2018 9:00 AM EDT 130 mg Emul 130 mg 130 mg, Intravenous, ONCE, 1 dose, On 09/01/18 at 0900, Alternative administration of IV push over 2 minutes is a recommendation from the electronics installer., Routine atropine injection 0.5 mg Given 09/01/2018 11:32 AM EDT 0.5 mg 0.5 mg, Intravenous, ONCE, 1 dose, On Sat09/01/18 at 0900, Administer prior to IRINOtecan, Routine dexamethasone (DECADRON) tablet 8 mg Given 09/01/2018 8:58 AM EDT 8 mg 8 mg, Oral, ONCE, 1 dose, On Sat09/01/18 at 0900, Administer prior to chemotherapy, Routine fluorouracil (ADRUCIL) 4,440 mg in Given 09/01/2018 1:21 PM EDT 4,440 mg 3 mL/hr sodium chloride 0.9% 138 mL chemo infusion 4,440 mg (2,400 mg/m2/dose ? 1.85 m2 Treatment Plan BSA from Recorded weight), Intravenous, ONCE, 1 dose, On Sat09/01/18 at 1230, Administer over 46 Hours, Warning Vesicant/Irritant Medication , To be infused via an ambulatory infusion CADD Legacy Plus pump continuously IV at 3 mL/hr for 46 hours. Pump contains a 46 hour supply and provides a daily dose of 1200 mg/m2/day = 2400 mg/m2 IV over 46 hours. IRINOtecan (CAMPTOSAR) 260 mg in New Bag 09/01/2018 11:34 AM E DT 260 mg 342 mL/hr dextrose 5% 513 mL chemo infusion 260 mg, Intravenous, ONCE, 1 dose, On Sat09/01/18 at 1000, Administer over 90 Minutes, Dose Ordered = 278mg (150 mg/m2). Pharmacist rounded dose per procedure. ondansetron (ZOFRAN) injection 8 mg Given 09/01/2018 8:59 AM EDT 8 mg 8 mg, Intravenous, ONCE, 1 dose, On Sat09/01/18 at 0900 OXALIplatin (ELOXATIN) 150 mg in New Bag 09/01/2018 9:55 AM ED T 150 mg 197.6 mL/hr dextrose 5% 280 mL chemo infusion 150 mg, Intravenous, ONCE, 1 dose, On Sat09/01/18 at 1000, Administer over 85 Minutes, Administer first. Compatible with dextrose-containing solution only. , Warning Vesicant/Irritant Medication , Dose Ordered = 157 mg (85 mg/m2). Pharmacist rounded dose per procedure. documented in this encounter Care Teams Breaker Layer Relationship Specialty Start Date End Date Corrie Pacheco APRN PCP - General Family Medicine 11/30/18 [facility] [place] [address] documented as of this encounter
--- OUTSIDE RECORDS SUMMARY | 2022-02-23 01:43 | XMS_ITS | Encounter Summary ---
:1960 Author Organization [facility] [place] [address] Care Team Providers Name Role Phone Corrie Pacheco APRN Primary Care Provider Encounter Details Date Type Department Care Team Description 08/18/2018 Clinical Support Hematology/Oncology Ольга Duke neoplasm of at [facility] [place] head of pancreas [address] [place] [phone] Social History Tobacco Use Types Packs/Day [...] for the very basics like Not v aevry hard 11/02/2020 food, housing, medical care, and [...] encounter Progress Notes Ольга Duke, RD - 08/18/2018 9:00 AM EDT Nutrition Assessment Note Assessment: 57 YO M with pancreatic cancer, s/p pancreaticoduodenectomy (Whipple resection), partialpancreatectomy on 05/05/[address] Collazo. He is here for . Nutrition Characteristics: Characteristics Severity Insufficient Energy Intake Intake stable Unintended Weight Loss Weight rebounded Loss of Subcutaneous Fat Loss of Muscle [...] Nutrition Diagnosis Sticking to smaller, frequent meals. Dysgeusia is improving. Avoiding sweet things, as they don't set [...] MD [facility] [place] [address] Ebonie Gordon APRN [address] [place] [address] DR MEDICAL ONCOLOGY [place], [place] [address] documented as of this encounter Visit Diagnoses Diagnosis Malignant neoplasm of head of pancreas documented in this encounter Care Teams Customer Contact Specialist Relationship Specialty Start Date End Date Corrie Pacheco APRN PCP - General Family Medicine 04/04/18 [address] [place], [place] [address] documented as of this encounter
--- OUTSIDE RECORDS SUMMARY | 2022-02-23 01:43 | XMS_ITS | Encounter Summary ---
:1960 Author Organization [facility] [place] [address] Care Team Providers Name Role Phone Corrie Pacheco APRN Primary Care Provider Reason for Visit Reason Comments Cancer Encounter Details Date Type Department Care Team Description 10/01/2018 Office Visit Hematology/Oncology Darling Romeo Ma lignant neoplasm of at [facility] CDAMIEN pancreas, unspecified [address] [place] [address] location of [place], [place] maligna ncy [phone] (Wo rk) Social History Tobacco Use Types [...] Sign Reading Time Taken Comments Blood Pressure 110/57 10/01/2018 7:55 AM EDT Pulse 64 10/01/2018 7:55 AM EDT Temperature 36.8 ??C (98.2 ??F) 10/01/2018 7:55 AM EDT Respiratory Rate 18 10/01/2018 7:55 AM EDT Oxygen Saturation 100% 10/01/2018 7:55 AM EDT Inhaled Oxygen Concentration - - Weight 69.9 kg (154 lb) 10/01/2018 7:55 AM EDT Height 167.7 cm (5' 6.02) 10/01/2018 7:55 AM EDT Body Mass Index 24.84 10/01/2018 7:55 AM EDT documented in this encounter Progress Notes Darling Romeo, [employer] OFFICER - 10/01/2018 8:00 AM EDT Subjective: Patient ID: Jaciel Combs is a 57 y.o. male. HPI: Mr. Combs is seen in f/u of pancreatic cancer. The history is summarized below. On 05/05/18 he underwent a robotic Whipple procedure by Dr. Collazo. Problem List: 1. Pancreatic cancer, mixed acinar-ductal, [...] and may- catenin (negative for nuclear staining). [id number] is retained in lesional cells. ??Overall, the [...] No evidence of acinar differentiation is seen. Interim History: Jaciel Combs returns to clinic today for labs, toxicity assessment and repeat evaluation prior to cycle #8, day 1. He reports feeling good. However, he does experience episodes of diarrhea after his infusion. He denies pain, fever, chills night sweats or unusual bleeding. Review of Systems Constitutional: Negative. HENT: Negative. Eyes: Negative. Respiratory: Negative. Cardiovascular: Negative. Gastrointestinal: Occasional episodes of diarrhea after treatment with Folfirinox. Endocrine: Negative. Genitourinary: Negative. Musculoskeletal: Negative. Allergic/Immunologic: Negative. Neurological: Negative. Hematological: Negative. Objective: Physical Exam Constitutional: He is [...] His behavior is normal. Thought content normal. Vital Signs BP 110/57 (Patient Position: Sitting) Pulse 64 Temp 36.8 ??C (98.2 ??F) (Oral) Resp 18 Ht 167.7 cm (5' 6.02) Wt 69.9 kg (154 lb) SpO2 100% BMI 24.84 kg/m?? 10/01/2018 Labs: WBC 3.49, Hgb./Hct. 11.0/32.8, Plts. 160, ANC 1.38. Chemistry: Na/K+ 142/3.5, BUN/Creat. 15/0.5, AST 27, ALT 40, Alk. Phos. 94, total Alb. 2.9. Assessment and Plan: 1. Pancreatic Cancer. Currently being treated with Modified FOLFIRINOX. Proceed with day 1, cycle #8today. 2. Follow up for CT chest, abdomin and pelvis as scheduled in 1 week. 3. RTC in 2 weeks with labs, to discuss CT results and to be evaluated to continue therapy. documented in this encounter Plan of Treatment Upcoming Encounters Date Type Specialty Care Team Description 02/23/2022 Office Visit Hematology and Oncology Gigi Sosa MD [facility] [place] [address] Ebonie Gordon APRN [address] [place] [address] DR MEDICAL ONCOLOGY [place], [place] [address] documented as of this encounter Visit Diagnoses Diagnosis Malignant neoplasm of pancreas, unspecif ied location of malignancy documented in this encounter Care Teams Toolroom Keeper Relationship Specialty Start Date End Date Corrie Pacheco APRN PCP - General Family Medicine 04/04/[address] [place], [place] [id number] documented as of this encounter
--- OUTSIDE RECORDS SUMMARY | 2022-02-23 01:43 | XMS_ITS | Encounter Summary ---
:1960 Author Organization [facility] [place] [address] Care Team Providers Name Role Phone Corrie Pacheco APRN Primary Care Provider Reason for Visit Reason Comments IV Medication Pump disconnect and antiemet ics Treatment/Therapy Plan Authorization (Routine) - Closed Specialty Diagnoses / Procedures Referred By Contact Refer red To Contact Hematology and Diagnoses Malignant neoplasm of head of pancreas Gigi Sosa Stj Hem Onc Oncology Procedures TC APREPITANT, 1 MG, INJECTION TC PALONOSETRON HCL, 25MCG, INJECTION (ALOXI) TC OXALIPLATIN, 0.5MG, INJECTION (ELOXATIN) TC IRINOTECAN, 20MG (CAMPTOSAR) TC FLOUROURACIL, 500MG MD Infusion [address] [place]OGY [address] [place] [address] Referral ID Status Reason Start Date Expiration Date Visits Requ ested Visits Authorized [id number] Closed 06/06/2018 06/06/2019 30 30 Encounter Details Date Type Department Care Team Description 07/24/2018 Infusion Hematology Oncology at [facility] lignant neoplasm of head [facility] of [address] [phone] Social History Tobacco Use [...] Sign Reading Time Taken Comments Blood Pressure 105/55 07/24/2018 12:19 PM EDT Pulse 58 07/24/2018 12:19 PM EDT Temperature 36.8 ??C (98.2 ??F) 07/24/2018 12:19 PM EDT Respiratory Rate 18 07/24/2018 12:19 PM EDT Oxygen Saturation 99% 07/24/2018 12:19 PM EDT Inhaled Oxygen Concentration - - Weight - - Height - - Body Mass Index - - documented in this encounter Progress Notes Lui Arteaga RN - 07/24/2018 10:00 AM EDT INFUSION THERAPY ADMINISTRATION NOTES DIAGNOSIS: 1. Malignant neoplasm of head of pancreas sodium chloride 0.9% infusion dexamethasone (DECADRON) injection 10 mg palonosetron (ALOXI) injection 0.25 mg heparin, porcine 100 unit/mL flush 500 Units sodium chloride 0.9 % flush 5-20 mL Home Infusion: Pump Disconnect REASON FOR VISIT: Discontinue 5FU home infusion and deaccess mediport, hydration & antiemetics SUBJECTIVE Jaciel Combs reports nausea but says he feels better after antiemetics today. OBJECTIVE: VITAL SIGNS: BP 105/55 (Patient Position: Sitting) Pulse 58 Temp 36.8 ??C (98.2 ??F) (Oral) Resp 18 SpO2 99% REACTIONS (DESCRIPTION, TIME, INTERVENTION AND EFFECTIVENESS) none ASSESSMENT Jaciel Combs was awake, alert and he tolerated treatment well. Port flushed with 20cc NS and 500 units Heparin then de-accessed after completion of treatment. PLAN Return to clinic per routine. documented in this encounter Plan of Treatment Upcoming Encounters Date Type Specialty Care Team Description 02/23/2022 Office Visit Hematology and Oncology Gigi Sosa MD [facility] [place] [address] Ebonie Gordon, [address] [place] [address] documented as of this encounter Visit Diagnoses Diagnosis Malignant neoplasm of head of pancreas documented in this encounter Administered Medications Inactive Administered Medications - up to 3 most recent administrations Medication Order MAR Action Action Date Dose Rate Site dexamethasone (DECADRON) injection Given 07/24/2018 12:24 PM EDT 10 mg 10 mg 10 mg, Intravenous, ONCE, 1 dose, On Marlen 07/24/18 at 1215 heparin, porcine 100 unit/mL flush 500 Given 07/24/2018 12:45 PM EDT 500 Units Units 500 Units, Intravenous, ONCE PRN, Starting on Marlen 07/24/18 at 1150, Until Marlen 07/24/18 at 1635, Line Care, Refer to Intravenous (IV) Procedure: Accessing Implanted Vascular Access Devices (654) procedure and/or Intravenous (IV) Job Aid: Adult Flushing & Catheter Care (7178) job aid for additional information regarding guidelines and administration., Routine palonosetron (ALOXI) injection 0.25 mg Given 07/24/2018 12:27 PM EDT 0.25 mg 0.25 mg, Intravenous, ONCE, 1 dose, On Marlen 07/24/18 at 1215, Routine sodium chloride 0.9 % flush 5-20 mL Given 07/24/2018 12:45 PM EDT 20 mLs 5-20 mL, Intravenous, EVERY 1 MIN PRN, Starting on Marlen 07/24/18 at 1150, Until Marlen 07/24/18 at 1635, Line Care, Flush pertains to all indwelling lines. Flush per protocol found in the job aid using the link provided on this medication record. Refer to Intravenous (IV) Job Aid: Adult Flushing & Catheter Care (2447) job aid for additional information regarding guidelines and administration., Routine sodium chloride 0.9% infusion New Bag 07/24/2018 11:45 AM EDT 1,000 mL/hr 1000 mL/hr 1,000 mL/hr, Intravenous, CONTINUOUS, Starting on Marlen 07/24/18 at 1215, Until Marlen 07/24/18 at 1314 documented in this encounter Care Teams Sugar Mixer Relationship Specialty Start Date End Date Corrie Pacheco APRN PCP - General Family Medicine 04/04/[address] [place] [address] documented as of this encounter
--- OUTSIDE RECORDS SUMMARY | 2022-02-23 01:43 | XMS_ITS | Encounter Summary ---
:1960 Author Organization [facility] [place] [address] Care Team Providers Name Role Phone Corrie Pacheco APRN Primary Care Provider Reason for Referral Diagnostic Test (Routine) - Closed Specialty Diagnoses / Procedures Referred By Contact Refer red To Contact Radiology Diagnoses Malignant neoplasm of head of pancreas Gigi Sosa MD [facility] Rad Ct Scan Procedures CT Chest Abdomen Pelvis w Contrast (Generic) [facility] [place] [address] [place] [address] Referral ID Status Reason Start Date Expiration Date Visits V isits Requested Authorized [id number] Closed Specialty 04/28/2019 01/02/2020 1 1 Service Requested iagnostic Test (Routine) - Closed Specialty Diagnoses / Procedures Referred By Contact Refer red To Contact Radiology Diagnoses Malignant neoplasm of head of pancreas Gigi Sosa MD [facility] Interventionl Rad Procedures IR Mediport Removal [facility] [place] [address] [place] [address] Referral ID Status Reason Start Date Expiration Date Visits V isits Requested Authorized [id number] Closed Specialty 01/02/2019 01/02/2020 1 1 Service Requested Encounter Details Date Type Department Care Team Description 01/02/2019 Office Visit Hematology/Oncology Gigi Sosa, Alireza lignant neoplasm of at [facility] head of pancreas [address] [place] [id number] ONCOLOGY [phone] JESSY BUNCH 0375 Social History Tobacco Use Types Packs/Day [...] Sign Reading Time Taken Comments Blood Pressure 110/74 01/02/2019 3:00 PM EDT Pulse 64 01/02/2019 3:00 PM EDT Temperature 36.9 ??C (98.4 ??F) 01/02/2019 3:00 PM EDT Respiratory Rate 18 01/02/2019 3:00 PM EDT Oxygen Saturation 99% 01/02/2019 3:00 PM EDT Inhaled Oxygen Concentration - - Weight 76.2 kg (168 lb) 01/02/2019 3:00 PM EDT Height 167.6 cm (5' 5.98) 01/02/2019 3:00 PM EDT Body Mass Index 27.13 01/02/2019 3:00 PM EDT documented in this encounter Progress Notes Gigi Sosa MD - 01/02/2019 3:00 PM EDT Subjective: Patient ID: [email or web address] Combs is a 58 y.o. male. Problem [...] and may- catenin (negative for nuclear staining). [id number] is retained in lesional cells. ??Overall, the [...] 12 cycles, completed 11/24/[address] c/a/p 10/07/18 - IMPRESSION 1. [...] today, he is by himself. He is doing well. He is eating well and has gained 7# sincenovember. 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 Getting back into that routine has been good and he feels this has helped with his sleep habits. He has some fatigue toward the end of the week. He does have residual symptoms of neuropathy in his hands and feet, moreso in his feet. He notices it moreso after the has been sitting for a long period. He is taking Creon, 1-2 with meals and1 with snacks. He has some gassiness but it is less than it was in the past. His bowels are regular and the stools are formed. 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 Labs: WBC/ANC - 4., Hgb/Hct - 12.3/36.8, Plts - 180,000. BUN/Cr - 21/0.82. Alk phos - 126. Lytes and LFTs o/w unremarkable CA 19-9 01/02/19 pending 06/06/18 3 04/15/18 0.7 Assessment and Plan: Mr. Combs is a 58 yo male seen in f/u of pancreatic cancer. He presented in late 03/[address] A CT was done at [facility] and showed intra and extrahepatic biliary [...] completed the planned 12 cycles on 11/24/18. A CT was done on 10/07/18. This showed no evidence of metastatic disease. Clinically, he is doing very well. He has gained weight. 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 We will f/u on the CA 19-9 level. Assuming this is ok, will observe. We will plan to see him in April with a CT scan. He would like the mediport out and we will make a referral. He discussed with Dr. Collazo whether he needed to keep taking the creon. His plan is to try going without it after he runs out of his current supply in about three months. He is aware of symptoms that indicate pancreatic insufficiency. documented in this encounter Plan of Treatment Upcoming Encounters Date Type Specialty Care Team Description 02/23/2022 Office Visit Hematology and Oncology Gigi Sosa MD [facility] [place] [address] Ebonie Gordon, PROPERTY PORTFOLIO OFFICER [address] [place] [address] [place] [address] documented as of this encounter Procedures Procedure Name Priority Date/Time Associated Diagnosis Comme nts LAB SCAN 01/02/2019 12:00 AM Results for this EDT procedure are i n the results section . documented in this encounter Results CT Chest [...] e number below. ? Electronically signed by: Guanaco Escobar [facility] ([phone]), at 05/19/2019 10:32 AM Narrative 05/19/2019 10:32 AM EST EXAMINATION: CT [...] MD IMG CT ORDERABLES Carbohydrate Antigen 19-9 (05/19/2019 7:07 AM EST) P athologist Signature CA 19-9 <2.0 <=35.0 u/ml [facility] Specimen Anatomical Collection Method Collection Time Receive d Time (Source) Location / / Volume Laterality Blood specimen 05/19/2019 7:07 AM 01/14/2 020 7:14 (specimen) EST AM EST Resulting Agency Comment Spec In Lab Gigi Sosa MD CHEMISTRY ORDERABLES Performing Organization Address City/State/ZIP [place] [address] Comprehensive metabolic panel (non-fasting) (05/19/2019 7:07 AM EST) P athologist Signature Glucose Lvl 89 65 - 199 [facility] mg/dL [facility] Comment: Diabetes: >=200 mg/dL plus symp toms BUN 16 10 - 20 mg/dL [facility] Creatinine 0.80 0.80 - 1.50 mg/dL [facility] Sodium 141 135 - 145 mmol/L [facility] Potassium 3.8 3.5 - 5.0 mmol/L [facility] Comment: Please note: ??Patients with WBC >100,00 0 may have falsely elevated Potassium levels. ??For accurate Potassium quantif ication in these patients send serum separator tube (gold top) for subsequent determinations. ??Contact the Clinical Chemistry Laboratory if there are any qu estions. Chloride 102 98 - 107 mmol/L [facility] CO2 30 22 - 31 mmol/L [facility] Anion Gap 9 5 - 15 mmol/L [facility] Calcium 9.1 8.5 - 10.5 mg/dL [facility] Total Protein 7.7 6.1 - 8.0 gm/dL [facility] Albumin 4.4 3.2 - 5.2 gm/dL [facility] AST 35 0 - 39 unit/L [facility] ALT 35 0 - 55 unit/L [facility] Alk Phos 86 40 - 130 unit/L [facility] Total Bilirubin 0.2 0.2 - 1.3 mg/dL [facility] Estimated GFR 98 >=60 mL/min/1.73 m?? [facility] Comment: The eGFR was calculated using the CKD-EP I equation. As with all creatinine based estimates of kidney function, eGFR values calculated with the CKD-EPI equation are not accurate in patients wi th acute kidney failure, extremes of body mass or the acutely ill. http://[employer]fin/[facility] eGFR 113 >=60 mL/min/1.73 m?? [facility] Comment: The eGFR was calculated using the CKD-EP I equation. As with all creatinine based estimates of kidney function, eGFR values calculated with the CKD-EPI equation are not accurate in patients wi th acute kidney failure, extremes of body mass or the acutely ill. http://[employer]fin/[facility] Specimen Anatomical Collection Method Collection Time Receive d Time (Source) Location / / Volume Laterality Blood specimen 05/19/2019 7:07 AM 020 7:14 (specimen) EST AM EST Resulting Agency Comment Spec In Lab Gigi Sosa MD CHEMISTRY ORDERABLES Performing Organization Address City/State/ZIP Code Phon e Number [place] [phone] IR Mediport Removal (01/13/2019 2:10 PM EDT) [...] aspects (including the patient's identity, informed consent, sd dical record number, allergies, planned procedure and [...] . Gigi Sosa MD IMG IR ORDERABLES SCAN DOC: LAB (01/02/2019 12:00 AM EDT) Narrative 01/02/2019 12:00 AM EDT This result has an attachment that is no t available. Ordered by an unspecified provider. Scanning Provider MEDIA MGR SCAN EXT ORDR/RSLT documented in this encounter Visit Diagnoses Diagnosis Malignant neoplasm of head of pancreas Malignant neoplasm of head of pancreas Malignant neoplasm of head of pancreas documented in this encounter Care Teams Striker Off Relationship Specialty Start Date End Date Corrie Pacheco APRN PCP - General Family Medicine 04/04/18 [place] [address] documented as of this encounter
--- OUTSIDE RECORDS SUMMARY | 2022-02-23 01:43 | XMS_ITS | Encounter Summary ---
:1960 Author Organization [facility] [place] [address] Care Team Providers Name Role Phone Corrie Pacheco APRN Primary Care Provider Reason for Visit Reason Comments Chemotherapy FOLFIRINOX, Cycle 4, Day 1 Treatment/Therapy Plan Authorization (Routine) - Closed Specialty Diagnoses / Procedures Referred By Contact Refer red To Contact Hematology and Diagnoses Malignant neoplasm of head of pancreas Gigi Sosa [facility] Onc Oncology Procedures TC APREPITANT, 1 MG, INJECTION TC PALONOSETRON HCL, 25MCG, INJECTION (ALOXI) TC OXALIPLATIN, 0.5MG, INJECTION (ELOXATIN) TC IRINOTECAN, 20MG (CAMPTOSAR) TC FLOUROURACIL, 500MG MD Infusion [address] [place]OGY [address] [place] [address] Referral ID Status Reason Start Date Expiration Date Visits Requ ested Visits Authorized [id number] Closed 06/06/2018 06/06/2019 30 30 Encounter Details Date Type Department Care Team Description 08/05/2018 Infusion Hematology Oncology at [facility] lignant neoplasm of head [facility] of [address] [phone] Social History Tobacco Use [...] Sign Reading Time Taken Comments Blood Pressure 96/74 08/05/2018 8:16 AM EDT Pulse 79 08/05/2018 8:16 AM EDT Temperature 36.5 ??C (97.7 ??F) 08/05/2018 8:16 AM EDT Respiratory Rate 18 08/05/2018 8:16 AM EDT Oxygen Saturation 100% 08/05/2018 8:16 AM EDT Inhaled Oxygen Concentration - - Weight 63.4 kg (139 lb 12.8 oz) 08/05/2018 8:16 AM EDT Height 170 cm (5' 6.93) 08/05/2018 8:16 AM EDT Body Mass Index 21.94 08/05/2018 8:16 AM EDT documented in this encounter Progress Notes Zuly Reyes RN - 08/05/2018 8:00 AM EDT INFUSION THERAPY ADMINISTRATION NOTES DIAGNOSIS: Pancreatic cancer CYCLE #4, Day 1 REASON FOR VISIT: FOLFIRONOX infusion and initiation of continunous home 5FU infusion via CADD pump provided by [employer] SUBJECTIVE Jaciel offers no complaints. OBJECTIVE LAB DATA: Labs reviewed and found adequate for treatment. Pre administration: Chemotherapy orders independently verified for drug name, route, and dosage per patient's height, weight and BSA by Zuly Reyes RN and Rick Mercer [facility]. At time of administration Patient identity [...] well. PLAN Return to clinic on , 08/07/18 @ 1100 for disconnect and hydration. documented in this encounter Plan of Treatment Upcoming Encounters Date Type Specialty Care Team Description 02/23/2022 Office Visit Hematology and Oncology Gigi Sosa MD [facility] [place] [address] Ebonie Gordon UTILITY AIRCREWMAN [address] [place] [address] [place] [address] documented as of this encounter Visit Diagnoses Diagnosis Malignant neoplasm of head of pancreas documented in this encounter Administered Medications Inactive Administered Medications - up to 3 most recent administrations Medication Order MAR Action Action Date Dose Rate Site aprepitant (CINVANTI) injection Given 08/05/2018 8:47 AM EDT 130 mg Emul 130 mg 130 mg, Intravenous, ONCE, 1 dose, On Sat08/05/18 at 0845, Alternative administration of IV push over 2 minutes is a recommendation from the director of psychiatry., Routine atropine injection 0.5 mg Given 08/05/2018 11:03 AM EDT 0.5 mg 0.5 mg, Intravenous, ONCE, 1 dose, On Sat08/05/18 at 0845, Administer prior to IRINOtecan, Routine dexamethasone (DECADRON) tablet 8 mg Given 08/05/2018 8:44 AM EDT 8 mg 8 mg, Oral, ONCE, 1 dose, On Sat08/05/18 at 0845, Administer prior to chemotherapy, Routine fluorouracil (ADRUCIL) 4,440 mg in Given 08/05/2018 12:51 PM EDT 4,440 mg 3 mL/hr sodium chloride 0.9% 138 mL chemo infusion 4,440 mg (2,400 mg/m2/dose ? 1.85 m2 Treatment Plan BSA from Recorded weight), Intravenous, ONCE, 1 dose, On Sat08/05/18 at 1215, Administer over 46 Hours, Warning Vesicant/Irritant Medication To be infused via an ambulatory infusion CADD Legacy Plus pump continuously IV at 3 mL/hr for 46 hours. Pump contains a 46 hour supply and provides a daily dose of 1200 mg/m2/day = 2400 mg/m2 IV over 46 hours with 12 mL of overfill in bag. IRINOtecan (CAMPTOSAR) 260 mg in New Bag 08/05/2018 11:05 AM E DT 260 mg 342 mL/hr dextrose 5% 513 mL chemo infusion 260 mg, Intravenous, ONCE, 1 dose, On Sat08/05/18 at 0945, Administer over 90 Minutes, Dose Ordered = 278 mg (150 mg/m2). Pharmacist rounded dose per procedure. ondansetron (ZOFRAN) injection 8 mg Given 08/05/2018 8:45 AM EDT 8 mg 8 mg, Intravenous, ONCE, 1 dose, On Sat08/05/18 at 0845 OXALIplatin (ELOXATIN) 150 mg in New Bag 08/05/2018 9:24 AM ED T 150 mg 197.6 mL/hr dextrose 5% 280 mL chemo infusion 150 mg, Intravenous, ONCE, 1 dose, On Sat08/05/18 at 0945, Administer over 85 Minutes, Administer first. Compatible with dextrose-containing solution only. , Warning Vesicant/Irritant Medication , Dose Ordered = 157 mg (85 mg/m2). Pharmacist rounded dose per procedure. documented in this encounter Care Teams Box Maker Paperboard Relationship Specialty Start Date End Date Corrie Pacheco APRN PCP - General Family Medicine 04/04/[address] [facility] [address] documented as of this encounter
--- OUTSIDE RECORDS SUMMARY | 2022-02-23 01:43 | XMS_ITS | Encounter Summary ---
:1960 Author Organization [facility] [place] [address] Care Team Providers Name Role Phone Corrie Pacheco APRN Primary Care Provider Encounter Details Date Type Department Care Team Description 08/15/2018 Office Visit Hematology/Oncology Tricia Garcia Mali gnalli neoplasm of head of pancreas; at [facility] DAMIEN Malignant neoplasm of pancreas, unspecif ied location of malignancy [address] [place], [place] [address] [place] [address] [phone] (Wo rk) Social History Tobacco Use Types [...] Sign Reading Time Taken Comments Blood Pressure 119/74 08/15/2018 2:37 PM EDT Pulse 76 08/15/2018 2:37 PM EDT Temperature 36.8 ??C (98.2 ??F) 08/15/2018 2:37 PM EDT Respiratory Rate 16 08/15/2018 2:37 PM EDT Oxygen Saturation 99% 08/15/2018 2:37 PM EDT Inhaled Oxygen Concentration - - Weight 65 kg (143 lb 6.4 oz) 08/15/2018 2:37 PM EDT Height 170 cm (5' 6.93) 08/15/2018 2:37 PM EDT Body Mass Index 22.51 08/15/2018 2:37 PM EDT documented in this encounter Progress Notes Tricia Garcia, MUSIC THEORY PROFESSOR - 08/15/2018 2:30 PM EDT Patient ID: Jaciel Combs is a [...] and may- catenin (negative for nuclear staining). [id number] is retained in lesional cells. ??Overall, the [...] comes to clinic feeling relatively well. He had one bout of diarrhea this morning which he attributes his 2lb weight loss to today. He is being followed by our winery worker. He is active - out hiking with his dog. 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 Negative for activity change, appetite change, fatigue and fever. HENT: Negative. Respiratory: Negative. Cardiovascular: Negative. Gastrointestinal: Negative for abdominal pain, constipation, diarrhea and nausea. Genitourinary: Negative. Musculoskeletal: Negative. Skin: Negative for color change. Neurological: Negative. Hematological: Negative. Psychiatric/Behavioral: Negative. BP 119/74 (Patient Position: Sitting) Pulse 76 Temp 36.8 ??C (98.2 ??F) (Oral) Resp 16 Ht 170 cm (5' 6.93) Wt 65 kg (143 lb 6.4 oz) SpO2 99% BMI 22.51 kg/m?? Wt Readings from Last 3 Encounters: 08/15/18 65 kg (143 lb 6.4 oz) 08/07/18 66.6 kg (146 lb 12.8 oz) 08/07/18 66.6 kg (146 lb 12.8 oz) Objective: Physical Exam Constitutional: [...] normal. Vitals reviewed. Labs: 08/15/2018 CBC: WBC 5.29 hemoglobin 13.9 platelet 193 CMP: Sodium 139 potassium 3.6 BUN 15 creatinine 0.88 glucose 121 calcium 8.7 total bili 0.2 AST 29 ALT 49 alk phos 93 total protein 7.0 albumin 3.0 Iron 77 TIBC 255 transferrin 30% ferritin 1184 CA 19-9 06/06/18 3 04/15/18 0.7 ONCBCN [...] with jaundice. A CT was done at [facility] and showed intra and extrahepatic biliary ductal dilatation and question of a mass in the duodenum or head of the pancreas. He was referred to GI at [facility] and on 04/04/18 underwent an ERCP with [...] and is here today for evaluation for C#5 which is scheduled for Saturday. I have cut his dex dose to 8mg for jitteriness and insomnia post treatment. Overall he is doing great. His significantly elevated Ferritin is of concern. This was ordered by the winery worker to check nutritional status. Of note his HgB was 13 in Nov before dx - I do not have an older baseline, however when he started on chemo it was 15.5 which is on the high end of normal. He may need to be worked up for hemachromatosis at some point. RTC 2wks for re-eval for C#6. Tricia Garcia, MSN, GARMENT ALTERATION EXAMINER, AOCN Hematology/Oncology Nurse Practitioner [place], [place] [phone] documented in this encounter Plan of Treatment Upcoming Encounters Date Type Specialty Care Team Description 02/23/2022 Office Visit Hematology and Oncology Gigi Sosa MD [facility] [place] [address] Ebonie Gordon APRN [address] [place] [address] [place] [address] documented as of this encounter Visit Diagnoses Diagnosis Malignant neoplasm of head of pancreas Malignant neoplasm of pancreas, unspecif ied location of malignancy documented in this encounter Care Teams Dbas Relationship Specialty Start Date End Date Corrie Pacheco APRN PCP - General Family Medicine 04/04/18 [place] [address] documented as of this encounter
--- OUTSIDE RECORDS SUMMARY | 2022-02-23 01:43 | XMS_ITS | Encounter Summary ---
:1960 Author Organization [facility] [place] [address] Care Team Providers Name Role Phone Corrie Pacheco APRN Primary Care Provider Encounter Details Date Type Department Care Team Description 08/01/2018 Office Visit Hematology/Oncology Tricia Garcia Mali gnant neoplasm of pancreas, unspecified location of malignancy; at [facility] DAMIEN Malignant neoplasm of head of pancreas [address] [place] [address] [place] [address] [place] [address] [place] [address] [phone] (Wo rk) Social History Tobacco Use Types [...] Sign Reading Time Taken Comments Blood Pressure 125/78 08/01/2018 3:14 PM EDT Pulse 81 08/01/2018 3:14 PM EDT Temperature 36.9 ??C (98.4 ??F) 08/01/2018 3:14 PM EDT Respiratory Rate 16 08/01/2018 3:14 PM EDT Oxygen Saturation 100% 08/01/2018 3:14 PM EDT Inhaled Oxygen Concentration - - Weight 67.5 kg (148 lb 12.8 oz) 08/01/2018 3:14 PM EDT Height 170.2 cm (5' 7.01) 08/01/2018 3:14 PM EDT Body Mass Index 23.3 08/01/2018 3:14 PM EDT documented in this encounter Progress Notes Tricia Garcia, TOBACCO DIPPER - 08/01/2018 3:15 PM EDT Patient ID: Jaciel Combs is [...] and may- catenin (negative for nuclear staining). [id number] is retained in lesional cells. ??Overall, the [...] On presentation today, he comes to clinic with his . He is here today for evaluation of C4 of FOLFIRINOX. Jaciel is reporting headaches for the past 2-3 days although he finds it is mild and tolerable. He is also noted that the first few nights of chemotherapy has a hard time being able to get to sleep. He has not had trouble with nausea but feels like he could vomit just about any time. He did get some CBD pills for appetite and is wondering if that is okay which I reassured him it certainly was. Otherwise energy he is doing quite well and he is coping well with treatment and side effects. 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 Negative for activity change, appetite change, fatigue and fever. HENT: Negative. Respiratory: Negative. Cardiovascular: Negative. Gastrointestinal: Negative for abdominal pain, constipation, diarrhea and nausea. Genitourinary: Negative. Musculoskeletal: Negative. Skin: Negative for color change. Neurological: Negative. Hematological: Negative. Psychiatric/Behavioral: Negative. BP 125/78 (Patient Position: Sitting) Pulse 81 Temp 36.9 ??C (98.4 ??F) (Oral) Resp 16 Ht 170.2 cm (5' 7.01) Wt 67.5 kg (148 lb 12.8 oz) SpO2 100% BMI 23.30 kg/m?? Wt Readings from Last 3 Encounters: 08/01/18 67.5 kg (148 lb 12.8 oz) 07/22/18 68.5 kg (151 lb) 07/18/18 67.4 kg (148 lb 11.2 oz) Objective: Physical Exam Constitutional: He is [...] His behavior is normal. Vitals reviewed. Labs: 08/01/18 CBC: WBC 7.42 HgB 14.2 Plts 221 CMP: Sodium 139 potassium 3.8 chloride 102 BUN 14 creatinine 0.75 glucose 119 calcium 8.8 total bili 0.2 AST 27 ALT 45 alk phos 89 total protein 7 albumin 3.1 CA 19-9 06/06/18 3 04/15/18 0.7 Assessment and Plan: Mr. Combs is a 57 yo male seen for evaluation and management of pancreatic cancer. He presented in late 03/[address] A CT was done at [facility] and showed intra and extrahepatic biliary ductal dilatation and question of a mass in the duodenum or head of the pancreas. He was referred to GI at [facility] and on 04/04/18 underwent [...] and is here today for evaluation for C#4 which is to start Tues. I have cut his dex dose to 8mg for jitteriness and insomnia post treatment. Encouraged antiemetic for nausea/retching feeling. RTC 2wks for re-eval for C#5. Tricia Garcia, MSN, BOOKSTORE CLERK, AOCN Hematology/Oncology Nurse Practitioner [place], [place] [phone] documented in this encounter Plan of Treatment Upcoming Encounters Date Type Specialty Care Team Description 02/23/2022 Office Visit Hematology and Oncology Gigi Sosa MD [facility] [place] [address] Ebonie Gordon APRN [address] [place] [address] [place] [address] documented as of this encounter Procedures Procedure Name Priority Date/Time Associated Diagnosis Comme nts LAB SCAN 08/01/2018 12:00 AM Results for this EDT procedure are i n the results section . documented in this encounter Results SCAN DOC: LAB (08/01/2018 12:00 AM EDT) Narrative 08/01/2018 12:00 AM EDT This result has an attachment that is no t available. Ordered by an unspecified provider. Scanning Provider MEDIA MGR SCAN EXT ORDR/RSLT documented in this encounter Visit Diagnoses Diagnosis Malignant neoplasm of pancreas, unspecif ied location of malignancy Malignant neoplasm of head of pancreas documented in this encounter Care Teams Varnish Finisher Relationship Specialty Start Date End Date Corrie Pacheco APRN PCP - General Family Medicine 04/04/18 [place] [address] documented as of this encounter
--- OUTSIDE RECORDS SUMMARY | 2022-02-23 01:43 | XMS_ITS | Encounter Summary ---
:1960 Author Organization [facility] [place] [address] Care Team Providers Name Role Phone Corrie Pacheco APRN Primary Care Provider Reason for Visit Reason Comments Other 5 FU pump disconnect, Hydrat ion, Antiemetics, Cycle 12 Day 3 Treatment/Therapy Plan Authorization (Routine) - Closed Specialty Diagnoses / Procedures Referred By Contact Refer red To Contact Hematology and Diagnoses Malignant neoplasm of head of pancreas Gigi Sosa [facility] Hem Onc Oncology Procedures TC APREPITANT, 1 MG, INJECTION TC PALONOSETRON HCL, 25MCG, INJECTION (ALOXI) TC OXALIPLATIN, 0.5MG, INJECTION (ELOXATIN) TC IRINOTECAN, 20MG (CAMPTOSAR) TC FLOUROURACIL, 500MG MD Infusion [address] [place] [address] [place] [address] Referral ID Status Reason Start Date Expiration Date Visits Requ ested Visits Authorized [id number] Closed 06/06/2018 06/06/2019 30 30 Encounter Details Date Type Department Care Team Description 11/26/2018 Infusion Hematology Oncology at [facility] lignant neoplasm of head [facility] of pancreas [address] [place] [phone] Social History Tobacco Use Types [...] encounter Progress Notes Zuly Reyes RN - 11/26/2018 11:00 AM EDT INFUSION THERAPY ADMINISTRATION NOTES [...] MD [facility] [place] [address] Ebonie Gordon APRN [address] [place] [address] [place] [address] documented as of this encounter Visit Diagnoses Diagnosis Malignant neoplasm of head of pancreas documented in this encounter Administered Medications Inactive Administered Medications - up to 3 most recent administrations Medication Order MAR Action Action Date Dose Rate Site dexamethasone (DECADRON) injection Given 11/26/2018 11:10 AM EDT 8 mg 8 mg 8 mg, Intravenous, ONCE, 1 dose, On Sat11/26/18 at 1115 heparin, porcine 100 unit/mL flush 500 Given 11/26/2018 12:06 PM EDT 500 Units Units 500 Units, Intravenous, ONCE PRN, Starting on Sat11/26/18 at 1052, Until Sat11/26/18 at 1414, Line Care, Refer to Intravenous (IV) Procedure: Accessing Implanted Vascular Access Devices (644) procedure and/or Intravenous (IV) Job Aid: Adult Flushing & Catheter Care (4074) job aid for additional information regarding guidelines and administration., Routine palonosetron (ALOXI) injection 0.25 mg Given 11/26/2018 11:10 AM EDT 0.25 mg 0.25 mg, Intravenous, ONCE, 1 dose, On Sat11/26/18 at 1115, Routine sodium chloride 0.9 % (flush) flush 5-20 mL Given 11/26/2018 12:06 PM EDT 20 mLs 5-20 mL, Intravenous, EVERY 1 MIN PRN, Starting on Sat11/26/18 at 1052, Until Sat11/26/18 at 1414, Line Care, Flush pertains to all indwelling lines. Flush per protocol found in the job aid using the link provided on this medication record. Refer to Intravenous (IV) Job Aid: Adult Flushing & Catheter Care (2042) job aid for additional information regarding guidelines and administration., Routine sodium chloride 0.9% infusion New Bag 11/26/2018 11:00 AM EDT 1,000 mL/hr 1000 mL/hr 1,000 mL/hr, Intravenous, CONTINUOUS, Starting on Sat11/26/18 at 1115, Until Sat11/26/18 at 1214 documented in this encounter Care Teams Talent Director Relationship Specialty Start Date End Date Corrie Pacheco APRN PCP - General Family Medicine 04/04/[address] [place] [place] [address] documented as of this encounter
--- OUTSIDE RECORDS SUMMARY | 2022-02-23 01:43 | XMS_ITS | Encounter Summary ---
:1960 Author Organization [facility] [place] [address] Care Team Providers Name Role Phone Corrie Pacheco APRN Primary Care Provider Encounter Details Date Type Department Care Team Description 11/04/2018 Telephone General Surgery at [facility] [place] [address] Social History Tobacco Use Types Packs/Day Years [...] Description 02/23/2022 Office Visit Hematology and Oncology Giig Sosa MD [facility] [place] [address] Ebonie Gordon APRN [address] [place] [address] DR MEDICAL ONCOLOGY [place], [place] [id number] documented as of this encounter Visit Diagnoses Not on filedocumented in this encounter Care Teams Diabetes Clinical Manager Relationship Specialty Start Date End Date Corrie Pacheco APRN PCP - General Family Medicine 04/04/[address] [place], [place] [id number] documented as of this encounter
--- OUTSIDE RECORDS SUMMARY | 2022-02-23 01:43 | XMS_ITS | Encounter Summary ---
:1960 Author Organization [facility] [place] [address] Care Team Providers Name Role Phone Corrie Pacheco APRN Primary Care Provider Reason for Visit Reason Onset Date Comments Other 12/05/2018 Disability Paperwork send back Encounter Details Date Type Department Care Team Description 12/05/2018 Telephone Hematology/Oncology at [facility], Other (Disability [facility] RN Paperwork send back) [address] [place] [phone] Social History Tobacco Use Types Packs/Day [...] Telephone Encounter - Irma Valero RN - 12/08/2018 8:11 AM EDT Received paper work back from Jaciel- [employer] requested us to complete numbers 3-6 and 9. Original completed 09/19/18. Called [employer] to relay that we do not assess #3-6 in clinic and that number 9 was included on the attached MD note that was included. I was told by the repr esentative that 3-6 were OK and that she will reference the note for #9 and send it back to the review by the committee. Called and left message with Jaciel relaying the above and that I left the paperwork with the secretaries out front if he would like to grab it; that [employer] will be in contact with him; and to reach out if they need anything else. documented in this encounter Plan of Treatment Upcoming Encounters Date Type Specialty Care Team Description 02/23/2022 Office Visit Hematology and Oncology Gigi Sosa MD [facility] [place] [address] Ebonie Gordon, [address] [address] documented as of this encounter Visit Diagnoses Not on filedocumented in this encounter Care Teams International Accounting Manager Relationship Specialty Start Date End Date Corrie Pacheco APRN PCP - General Family Medicine 04/04/18 [facility] [place] [address] documented as of this encounter
--- OUTSIDE RECORDS SUMMARY | 2022-02-23 01:43 | XMS_ITS | Encounter Summary ---
:1960 Author Organization [facility] [place] [address] Care Team Providers Name Role Phone Corrie Pacheco APRN Primary Care Provider Reason for Visit Reason Comments Chemotherapy Cycle 9, Day 1, FOLFOX Treatment/Therapy Plan Authorization (Routine) - Closed Specialty Diagnoses / Procedures Referred By Contact Refer red To Contact Hematology and Diagnoses Malignant neoplasm of head of pancreas Gigi Sosa Stj Hem Onc Oncology Procedures TC APREPITANT, 1 MG, INJECTION TC PALONOSETRON HCL, 25MCG, INJECTION (ALOXI) TC OXALIPLATIN, 0.5MG, INJECTION (ELOXATIN) TC IRINOTECAN, 20MG (CAMPTOSAR) TC FLOUROURACIL, 500MG MD Infusion [address] [place]OGY [address] [place] [address] Referral ID Status Reason Start Date Expiration Date Visits Requ ested Visits Authorized [id number] Closed 06/06/2018 06/06/2019 30 30 Encounter Details Date Type Department Care Team Description 10/13/2018 Infusion Hematology Oncology at [facility] lignant neoplasm of head [facility] of [address] [phone] Social History Tobacco Use [...] Sign Reading Time Taken Comments Blood Pressure 116/50 10/13/2018 8:13 AM EDT Pulse - - Temperature 36.6 ??C (97.9 ??F) 10/13/2018 8:13 AM EDT Respiratory Rate 20 10/13/2018 8:13 AM EDT Oxygen Saturation 100% 10/13/2018 8:13 AM EDT Inhaled Oxygen Concentration - - Weight 68.7 kg (151 lb 6.4 oz) 10/13/2018 8:13 AM EDT Height 167.7 cm (5' 6.02) 10/13/2018 8:13 AM EDT copie d Body Mass Index 24.42 10/13/2018 8:13 AM EDT documented in this encounter Progress Notes Maryam Reyes RN - 10/13/2018 8:00 AM EDT INFUSION THERAPY ADMINISTRATION NOTES DIAGNOSIS: Pancreatic cancer CYCLE #9, Day 1 REASON FOR VISIT: FOLFIRONOX infusion [...] by MARYAM REYES RN and Rick Mercer [facility]. At time of administration Patient identity verified [...] treatment well. PLAN Return to clinic on 10/15/18 @ 1100 for disconnect and hydration. documented in this encounter Plan of Treatment Upcoming Encounters Date Type Specialty Care Team Description 02/23/2022 Office Visit Hematology and Oncology Gigi Sosa MD [facility] [place] [address] Ebonie Gordon GENERAL PRACTICE [address] [place] [address] [place] [address] documented as of this encounter Visit Diagnoses Diagnosis Malignant neoplasm of head of pancreas documented in this encounter Administered Medications Inactive Administered Medications - up to 3 most recent administrations Medication Order MAR Action Action Date Dose Rate Site aprepitant (CINVANTI) injection Given 10/13/2018 8:48 AM EDT 130 mg Emul 130 mg 130 mg, Intravenous, ONCE, 1 dose, On Sat10/13/18 at 0845, Alternative administration of IV push over 2 minutes is a recommendation from the band instrument repairer., Routine atropine injection 0.5 mg Given 10/13/2018 11:17 AM EDT 0.5 mg 0.5 mg, Intravenous, ONCE, 1 dose, On Sat10/13/18 at 0845, Administer prior to IRINOtecan, Routine dexamethasone (DECADRON) tablet 8 mg Given 10/13/2018 8:44 AM EDT 8 mg 8 mg, Oral, ONCE, 1 dose, On Sat10/13/18 at 0845, Administer prior to chemotherapy, Routine fluorouracil (ADRUCIL) 4,272 mg in Given 10/13/2018 1:07 PM EDT 4,272 mg 3 mL/hr sodium chloride 0.9% 138 mL chemo infusion 4,272 mg (2,400 mg/m2/dose ? 1.78 m2 Treatment Plan BSA from Recorded weight), Intravenous, ONCE, 1 dose, On Sat10/13/18 at 1215, Administer over 46 Hours, Warning Vesicant/Irritant Medication To be infused via an ambulatory infusion CADD Legacy Plus pump continuously IV at 3 mL/hr for 46 hours. Pump contains a 46 hour supply and provides a daily dose of 1200 mg/m2/day = 2400 mg/m2 IV over 46 hours with 12 mL of overfill in bag. IRINOtecan (CAMPTOSAR) 260 mg in New Bag 10/13/2018 11:21 AM E DT 260 mg 342 mL/hr dextrose 5% 513 mL chemo infusion 260 mg, Intravenous, ONCE, 1 dose, On Sat10/13/18 at 0945, Administer over 90 Minutes, Dose Ordered = 267 mg (150 mg/m2). Pharmacist rounded dose per procedure. ondansetron (ZOFRAN) injection 8 mg Given 10/13/2018 8:46 AM EDT 8 mg 8 mg, Intravenous, ONCE, 1 dose, On Sat10/13/18 at 0845 OXALIplatin (ELOXATIN) 150 mg in New Bag 10/13/2018 9:41 AM ED T 150 mg 197.6 mL/hr dextrose 5% 280 mL chemo infusion 150 mg, Intravenous, ONCE, 1 dose, On Sat10/13/18 at 0945, Administer over 85 Minutes, Administer first. Compatible with dextrose-containing solution only. , Warning Vesicant/Irritant Medication , Dose Ordered = 151 mg (85 mg/m2). Pharmacist rounded dose per procedure. documented in this encounter Care Teams Industrial Economics Teacher Relationship Specialty Start Date End Date Corrie Pacheco APRN PCP - General Family Medicine 04/04/18 [place] [address] documented as of this encounter
--- OUTSIDE RECORDS SUMMARY | 2022-02-23 01:44 | XMS_ITS | Encounter Summary ---
:1960 Author Organization [facility] [place] [address] Care Team Providers Name Role Phone Corrie Pacheco APRN Primary Care Provider Reason for Visit Reason Onset Date Comments Disability Paperwork 06/06/2018 Encounter Details Date Type Department Care Team Description 06/06/2018 Telephone Hematology/Oncology at [facility], Disability Paperwork [facility] [place] [facility] RN [address] [place] [phone] Social History Tobacco Use Types Packs/Day Years [...] Telephone Encounter - Irma Valero RN - 06/06/2018 4:09 PM EST Completed and put in outgoing mail the Physician's report neoplastic disease; placed copy in my folder. Plan to tentatively start Folfirinox 06/30 for 12 cycles, 6 months. It would be difficult to work during this due to fatigue; and some degree of nausea, weakness, and neuropathies. documented in this encounter Plan of Treatment Upcoming Encounters Date Type Specialty Care Team Description 02/23/2022 Office Visit Hematology and Oncology Gigi Sosa MD [facility] [place] [address] Ebonie Gordon APRN [address] [place] [address] DR MEDICAL ONCOLOGY [place], [place] [address] documented as of this encounter Visit Diagnoses Not on filedocumented in this encounter Care Teams Clinical Systems Analyst Relationship Specialty Start Date End Date Corrie Pacheco APRN PCP - General Family Medicine 04/04/[address] [facility], [place] [id number] documented as of this encounter
--- OUTSIDE RECORDS SUMMARY | 2022-02-23 01:44 | XMS_ITS | Encounter Summary ---
:1960 Author Organization [facility] [place] [address] Care Team Providers Name Role Phone Corrie Pacheco APRN Primary Care Provider Encounter Details Date Type Department Care Team Description 06/03/2018 Clinical Support [facility] B, [place] [phone] Social History Tobacco Use Types [...] documented as of this encounter Progress Notes Kathleen Bangura, RD - 06/03/2018 4:00 PM EST ONCOLOGY DIETITIAN FOLLOW UP NOTE Diagnosis: Pancreatic [...] by his . Interim Nutrition History: Food Intake:___unchanged___increased___decreased Some foods are unappealing to him now ie refined sugars, sweetened foods but finding he can toleratemore volume now. Am: Cottage cheese and fruit Fig newtons (inquires today about additional snack ideas) Two turkey sandwiches at lunch today - felt hungry and tolerated without issue Sami toast last night - two slices Low [...] intake Did not assess Taste alteration: ___no problems___dysgeusia___hypogeusia___impairs oral intake Denies significant taste disturbances just change in food preferences Mouth Sores: ___none___present, but does not impair oral intake___present, impaired oral intake Did not assess Xerostomia:___none___present, but does not impair oral intake___present, impaired oral intake Did not assess Bowels:___normal___diarrhea___constipation___gas/bloating____hiccups Moving once a day--color has normalized, dosing Creon 24 : 2 with meals Inquired about dosing more with larger meals Other:____uncontrolled pain with impaired oral intake___depression___limited social support____limited financial resources Increasing energy--now walking his dogs Objective: Wt Readings from Last 3 Encounters: 06/03/18 71.7 kg (158 lb) 05/05/18 71.2 kg (157 lb) 04/23/18 69.4 kg (153 lb) Weight History: UBW: 231 pounds %UBW: IBW: %IBW: Weight loss%: Lost 60 pounds over the past 7-8 mos by modifying diet, incr activity, but unintentional weight loss of 17 pounds sinceThanksgiving or 10% weight loss ?? Kcal needs estimated at: 2130 at 30kcals/Kg Protein needs estimated at: 107 at 1.5g/kg __ Stable __ Increased _ Decreased %weight loss/time : ____mild____moderate____significant Physical: ___ascites ____edema ___obvious muscle wasting Pertinent Labs: Reviewed Medications: Reviewed Assessment: Weight currently at pre-Whipple weight - he had lost about 20 pounds (unintentional) just prior to his diagnosis. He had intentional weight loss via a challenge at work and lost about 60 pounds (usual weight is 230 pounds). Eating throughout the day--meals and snacks. Appetite has increased, able to ac commodate more volume/meals. Dosing Creon 24: two with meals, one with snacks. Inquires about dosingand timing of enzymes as Plan: We discussed the followin. Weight: Does not want to regain the weight he intially lost at work ie likes 170 pounds. Discussed importance of keeping up with kcal and protein intake to support recovery following Whipple. 2. MARYJANE: Discussed dosing and timing enzymes with meals and snacks. Discussed signs and symptoms of MARYJANE-may require dosing up and flexible dosing pending size of meal or snack. 3. Recommend post whipple nutritional labs in another two months--I will enter them today. He will see Dr Sosa at [facility] on June 06. Pending treatment plan--I will see if Mary Beth Duke can then follow up with him. Would like to see in follow up with Dr Collazo when he returns ?at 6 month follow up. documented in this encounter Plan of Treatment Upcoming Encounters Date Type Specialty Care Team Description 02/23/2022 Office Visit Hematology and Oncology Gigi Sosa MD [facility] [place] [address] Ebonie Gordon APRN [address] [place] [address] DR [place] [address] documented as of this encounter Visit Diagnoses Diagnosis Exocrine pancreatic insufficiency Other specified disease of pancreas documented in this encounter Care Teams Sound Tester Relationship Specialty Start Date End Date Corrie Pacheco APRN PCP - General Family Medicine 04/04/[address] [facility], [place] [id number] documented as of this encounter
--- OUTSIDE RECORDS SUMMARY | 2022-02-23 01:44 | XMS_ITS | Encounter Summary ---
:1960 Author Organization [facility] [place] [address] Care Team Providers Name Role Phone Corrie Pacheco APRN Primary Care Provider Encounter Details Date Type Department Care Team Description 05/13/2018 Telephone Cardiology at [facility] [place] [address] Social History Tobacco Use Types Packs/Day [...] this encounter Miscellaneous Notes Telephone Encounter - Mary Mata RN - 05/13/2018 1:19 PM EST Images from the original note were not included. Nursing Triage - Phone Note DATE OF CALL: 05/13/2018 TIME OF CALL: 1:19 PM PATIENT DATE OF : 1960 CALLER: RN to the patient Learning Needs Assessment Reviewed: Yes SUBJECTIVE - Just checking in to see how Jaciel is doing? PERTINENT PAST MEDICAL HISTORY: PT is s/p Brief Op Note Addendum Date of Service: 05/05/2018 ??5:44 PM Brief Operative Note ?? Patient Name: Jaciel Combs : [id number] MR#: [id number] ?? Case Date: 05/05/2018 ?? Surgeon: Surgeon(s) and Role: * Lázaro Collazo MD - Primary * Mary Ruiz MD - Resident-Surgeon Ranjan ?? Preoperative diagnosis: PANCREAS CANCER ?? Postoperative diagnosis: PANCREAS CANCER ?? Procedure(s) (LRB): ROBOTIC PANCREATECTOMY,WHIPPLE, PARTIAL GASTRECTOMY W/ PANCREATOJEJUNOSTOMY (N/A) MODIFIER ROBOTBERNA XI (N/A) OMENTAL FLAP, INTRA ABDOMINAL (WRVU 6.54) PANCREATIC STENT INSERTION (WRVU 18.28) ?? Anesthesia: General ?? Findings: Pancreatic head mass s/p robotic Whipple ?? NURSING OBJECTIVE/ASSESSMENT: Jaciel was with the [facility] RN as she had just gotten there. I spoke with his Demi and overall he did very well overnight. He took 2 tylenol before bed last night slept well. He took 2 more tylenol this am and his pain is well managed. He is drinking plenty but Demi worried about his food intake. She stayed home from work today to make things that he might like. He and Demi are keeping track of everything he does and what he eats. He is having normal BM's and is voiding without difficulty. No nausea and vomiting. INTERVENTION/PLAN/ FOLLOW UP: Pt will call with any questions or concerns. If your symptoms do not improve, or they worsen, report to your local emergency department. CALLER AGREES: Yes PCP: Corrie Pacheco APRN documented in this encounter Plan of Treatment Upcoming Encounters Date Type Specialty Care Team Description 02/23/2022 Office Visit Hematology and Oncology Gigi Sosa MD [facility] [place] [address] Ebonie Gordon APRN [address] [place] [address] DR MEDICAL ONCOLOGY [place], [place] [address] documented as of this encounter Visit Diagnoses Not on filedocumented in this encounter Care Teams Foundation Engineer Relationship Specialty Start Date End Date Corrie Pacheco APRN PCP - General Family Medicine 04/04/[address] [place], [place] [address] documented as of this encounter
--- OUTSIDE RECORDS SUMMARY | 2022-02-23 01:44 | XMS_ITS | Encounter Summary ---
:1960 Author Organization [facility] [place] [address] Care Team Providers Name Role Phone Corrie Pacheco APRN Primary Care Provider Reason for Visit Reason Onset Date Comments Follow-up 07/01/2018 diarrhea Encounter Details Date Type Department Care Team Description 07/01/2018 Telephone Hematology/Oncology at [facility] (diarrhea) [facility] Lui Amaya RN [address] [place] [phone] Social History Tobacco Use Types Packs/Day [...] this encounter Miscellaneous Notes Telephone Encounter - Lui Arteaga RN - 07/01/2018 1:20 PM EST Called Pt to check on status of diarrhea. He report his last liquid stool was at 0700 today. He took1 tab imodium and has not had any further diarrhea since. He had a bagel for breakfast and mac&cheese for lunch. He denies any n/v, pain or fevers. He knows to call us if diarrhea returns or he hasany further questions or concerns. He was thankful for call. Dr Sosa updated via this note. documented in this encounter Plan of Treatment Upcoming Encounters Date Type Specialty Care Team Description 02/23/2022 Office Visit Hematology and Oncology Gigi Sosa MD [facility] [place] [address] Ebonie Gordon APRN [address] [place] [address] [place] [address] documented as of this encounter Visit Diagnoses Not on filedocumented in this encounter Care Teams Coating Supervisor Relationship Specialty Start Date End Date Corrie Pacheco APRN PCP - General Family Medicine 04/04/18 [place] [address] documented as of this encounter
--- OUTSIDE RECORDS SUMMARY | 2022-02-23 01:44 | XMS_ITS | Encounter Summary ---
:1960 Author Organization [facility] [place] [address] Care Team Providers Name Role Phone Corrie Pacheco APRN Primary Care Provider Encounter Details Date Type Department Care Team Description 06/04/2018 Orders Only General Surgery at L[facility] Coll[facility] O ther iron deficiency anemia; [facility] Exocrine pancreatic insufficiency Critical access [facility] [address] [place] [address] [place] [address] [phone] (Wo rk) Social History Tobacco Use Types [...] and Oncology Gigi Sosa MD [facility] [place] [address] [address] [place] [address] Scheduled Orders Name Type Priority Associated Diagnoses Order S chedule Ferritin Lab STAT Other iron deficiency Expect ed: 10/31/2018 anemia (Approximate), Expires: 2018 Iron and TIBC Lab STAT Other iron deficiency Expec ana: 10/31/2018 anemia (Approximate), Expires: 2018 Vitamin D, 25-Hydroxy Lab STAT Exocrine pancreatic Expected: 10/31/2018 insufficiency (Approximate), Expires: 2018 documented as of this encounter Results Vitamin E (11/04/2018 9:05 AM EDT) athologist Signature Vitamin E 6.5 5.5 - 17.0 KAYY JOSELINE mg/L [facility] Comment: ADDITIONAL INFORMATIO N This test was developed and its performa nce characteristics determined by [facility] in a manner co nsistent with CLIA requirements. This test has not been brenda ared or approved by the U.S. Food and Drug Administration. Test Performed by: [facility] [place] [address] [id number] 671 Specimen Anatomical Collection Method Collection Time Receive d Time (Source) Location / / Volume Laterality Blood specimen 11/04/2018 9:05 AM 019 (specimen) EDT 10:34 AM EDT Resulting Agency Comment Spec In Lab Lázaro Collazo MD CHEMISTRY ORDERABLES Performing Organization Address City/State/ZIP Code Phon e Number [address] Vitamin B12 (11/04/2018 9:05 AM EDT) athologist Signature Vitamin B-12 496 232 - 1,245 [facility] pg[facility]mL [facility] Specimen Anatomical Collection Method Collection Time Receive d Time (Source) Location / / Volume Laterality Blood specimen 11/04/2018 9:05 AM 019 9:17 (specimen) EDT AM EDT Resulting Agency Comment Spec In Lab Lázaro Collazo MD CHEMISTRY ORDERABLES Performing Organization Address City/[facility]/ZIP Code Phon e Number [address] Vitamin A (11/04/2018 9:05 AM EDT) athologist Signature Vitamin A 50.6 32.5 - 78.0 [facility] JOSELINE mcg/dL [facility] Comment: ADDITIONAL INFORMATIO N This test was developed and its performa nce characteristics determined by [facility] in a manner co nsistent with CLIA requirements. This test has not been brenda ared or approved by the U.S. Food and Drug Administration. Test Performed by: [facility] [employer] [address] [id number] 898 Specimen Anatomical Collection Method Collection Time Receive d Time (Source) Location / / Volume Laterality Blood specimen 11/04/2018 9:05 AM 019 (specimen) EDT 10:43 AM EDT Resulting Agency Comment Spec In Lab Lázaro Collazo MD CHEMISTRY ORDERABLES Performing Organization Address City/State/[place] [address] documented in this encounter Visit Diagnoses Diagnosis Other iron deficiency anemia Exocrine pancreatic insufficiency Other specified disease of pancreas documented in this encounter Care Teams Systems Security Consultant Relationship Specialty Start Date End Date Corrie Pacheco APRN PCP - General Family Medicine 04/04/18 [place] [address] documented as of this encounter
--- OUTSIDE RECORDS SUMMARY | 2022-02-23 01:44 | XMS_ITS | Encounter Summary ---
:1960 Author Organization [facility] [address] Care Team Providers Name Role Phone Corrie Pacheco APRN Primary Care Provider Reason for Visit Diagnostic Test (Routine) - Closed Specialty Diagnoses / Procedures Referred By Contact Refer red To Contact Radiology Diagnoses Malignant neoplasm of head of pancreas Gigi Ssoa MD [facility] Rad Procedures IR Mediport Placement / Exchange [facility] [place] [address] [place] [address] Referral ID Status Reason Start Date Expiration Date Visits V isits Requested Authorized [id number] Closed Specialty 06/06/2018 06/06/2019 1 1 Service Requested Encounter Details Date Type Department Care Team Description 06/12/2018 Hospital Encounter Radiology at [facility] Gigi Sosa Canceled [facility] MD Will (P-INCONVENIENT DATE Drive [facility]) [place], [place] CENTER [address] ONCOLOGY [phone] [place] [address] Social History Tobacco Use Types Packs/Day Years [...] Nausea. of pancreas, Drug-induced nausea and vomiting yfrcih-iagehbwo-owwkbaq Take 1-2 capsules 270 capsule 3 05/0710/25/2018 [...] for Constipation. documented as of this encounter Progress Notes Mona Sanchez RN - 06/09/2018 12:03 PM EST ANGIO NURSING DATABASE Name: JACIEL SIERRA Date of : 1960 AGE: 57 y.o. Address: [address] [place] [phone] (home) Mobile: Telephone Information: Referring Provider: Gigi Sosa REASON FOR VISIT: Mediport Placement Order Questions Answers Where will study be performed? [facility] [120] Prefered insertion location: No Preference Is the patient on anticoagulant / anitplatelet therapy ? No Reason for exam and clinical history: pancreatic cancer, needs mediport for chemotherapy Exam/Procedure requested: Single lumen mediport Date/time of procedure: 06/12/2018 @1145 Pertinent info from Pre-call (if any): Labs ordered: Platelet count 278 on 06/03/18 Meds stopped: None No MD workup at time of nursing note. No Known Allergies Pertinent PMH: Patient Active Problem List Diagnosis Code ??? Malignant neoplasm of head of pancreas C25.0 ??? Exocrine pancreatic insufficiency K86.81 ??? Pancreatic cancer C25.9 ??? Severe protein-calorie malnutrition E43 Pertinent PSH: Past Surgical History: Procedure Laterality Date ??? PRO ENDOSCOPIC US EXAM, ESOPH N/A 04/04/2018 UPPER EUS- ENDOSCOPIC ULTRASOUND performed by Felipe Soto MD at [facility] ENDOSCOPY ? ? PRO ERCP BILIARY OR PANCREATIC DUCT STENT REMOVAL & EXCHANGE W/DIL&WIRE 04/16/2018 ERCP, W REMOVAL& EXCHANGE STENT, BILIARY/PANCREATIC DUCT performed by Mahamed Bro MD at [facility] ENDOSCOPY ??? PRO ERCP STENT PLACEMENT BILIARY OR PANCREATIC DUCT 04/04/2018 ERCP, W PLCMNT ENDOSCOPIC STENT BILIARY OR PANCREATIC DUCT performed by Felipe Soto MD at [facility] ENDOSCOPY ??? PRO ERCP, SPHINCTEROTOMY N/A 04/04/2018 ERCP W/SPHINCTEROTOMY/PAPILLOTOMY performed by Felipe Soto MD at [facility] ENDOSCOPY ??? PRO ERCP, W/REMOVAL STONE, ZAHIDA/PANCR DUCTS 04/16/2018 ERCP W/REMOVAL CALCULI/DEBRIS FROM BILARY/PANCREATIC DUCT(S) performed by Mahamed Bro MD at [facility] ENDOSCOPY ??? PRO ERCP,DIAGNOSTIC N/A 04/16/2018 ERCP performed by Mahamed Bro MD at [facility] ENDOSCOPY ??? PRO LAP, DIAGNOSTIC ABDOMEN N/A 04/23/2018 LAPAROSCOPY, DIAGNOSTIC, ABDOMEN (WRVU 5.14) performed by Lázaro Collazo MD at [facility] OSC ??? PRO UNLISTED PX PNCRS N/A 05/05/2018 ROBOTIC PANCREATECTOMY,WHIPPLE, PARTIAL GASTRECTOMY W/ PANCREATOJEJUNOSTOMY performed by Lázaro Collazo MD at [facility] MAIN OR Date/Procedure Meds given/comments No Priors Laboratory Results: Lab Results Component Value Date CREATININE 0.82 06/03/2018 Lab Results Component Value Date K 4.5 06/03/2018 Lab Results Component Value Date PLATELET 278 06/03/2018 Medications: Prior to Admission medications Medication Sig Start Date End Date Taking? Authorizing Provider prochlorperazine (COMPAZINE) 10 mg Tablet Take 1 tablet by mouth every 6 hours as needed for Nausea.06/06/18 Gigi Sosa MD cubixa-nktcqvof-xijyuyk (CREON) 24,000-76,000 -120,000 unit Capsule, Delayed Release(E.C.) Take 1-2 capsules by mouth 3 times daily (with meals). With Meals: Take 1-2 capsules by mouth. With Snacks: Take 1 capsule by mouth. 05/27/18 Lázaro Clolazo MD omeprazole (PRILOSEC) 40 mg Capsule, Delayed Release(E.C.) Take 1 capsule by mouth daily for 360 days. 05/19/18 05/14/19 Lázaro Collazo MD acetaminophen (TYLENOL) 325 mg Tablet Take 2 tablets by mouth every 6 hours as needed for Pain. 05/12/18 Katharina Bailey APRN docusate sodium (COLACE) 100 mg Capsule Take 1 capsule by mouth 2 times daily as needed for Constipation. Patient not taking: Reported on 06/06/2018 05/12/18 Katharina Bailey APRN documented in this encounter Plan of Treatment Upcoming Encounters Date Type Specialty Care Team Description 02/23/2022 Office Visit Hematology and Oncology Gigi Sosa MD [facility] [place] [address] Ebonie Gordon APRN [address] [place] [address] [place] [address] documented as of this encounter Procedures Procedure Name Priority Date/Time Associated Diagnosis Comme nts IR MEDIPORT Routine 06/16/2018 1:39 PM Malignant neoplasm Res ults for this PLACEMENT EST of head of pancreas procedur e are in the results section. documented in this encounter Results IR Mediport Placement / Exchange (06/16/2018 1:39 PM EST) Anatomical Region Laterality Modality X-Ray Angiography Specimen (Source) Anatomical Location Collection Method / Collectio n Time Received Time / Laterality Volume Narrative 06/16/2018 1:51 PM EST IR PROCEDURE NOTE ?? Procedure: Port placement. ?? Indication for Procedure: Per Jaciel Paniagua??is a 57 y.o.??male??with ??pancreatic ductal adenoCA s/p Whipple procedure on 05/05/18 who is jaja nned for systemic chemotherapy, per a note from the patient's oncologist Dr. Sosa on 06/06/18. The IR service is consulted for placement of si ngle lumen Mediport for chemotherapy administration. ?? Procedure events and findings: After obt aining informed consent patient was positioned supine on procedure table . ??Right neck base and upper chest prepped and draped with maximum sterile barrier technique used throughout the procedure. ??Due to the painful natu re of the procedure, patient received split doses of intravenous fent anyl and versed from the IR nurse while pulse, pressure, and oxygen satura tion were continuously monitored. ?? Prophylactic antibiotic Ancef 2 grams IV was administered. ? Local anesthesia provided with 1% lidoca ine. ??Base of right IJ/subclavian accessed with micropuncture technique un jarocho U/S guidance and a 4Fr sheath placed. ??After additional local anesthe tic with 1% lidocaine and 1% lidocaine with epinephrine, a transverse skin incision was made and a port pocket created with blunt dissection in the upper chest. ?? The port catheter (8Fr) was tunneled fro m the port pocket to the neck entry site. ??Single lumen CT injection compatible port was then connected to the catheter and positioned in the po rt pocket. The guide wire was used to measure the amount of catheter to be placed. ??The 4Fr sheath was exchanged for a peel-away sheath and the port catheter placed via the peel-away with catheter tip positioned i n right atrium under fluoroscopic guidance. ??Port was accessed and aspira ana and flushed readily. ??The port was then loaded with heparin solution. ?? The neck incision was closed with tissue adhesive. ??The pocket incision was closed with interrupted deep 2-0 res orbable suture, superficial 4-0 resorbable suture and tissue adhesive. ? Medications: Fentanyl 125 mcg IV, Versed 2.5 mg IV, 1% Lidocaine <10ccs subcutaneous. ?Anti biotic Prophylaxis: Ancef 2 grams IV. ? Est Blood Loss: <5cc. ?? Complications: ??No immediate. ?? Impression: ??Placement of single lumen CT injection compatible mediport, catheter tip in RA, ready for use. ?? Resident/Fellow: ??None. ?? Attending: I, Dr. Jacome performed this procedure. ??I was present during the intraservice time as documented by lucina barboza IR Nurse.? Gigi Sosa MD IMG IR ORDERABLES documented in this encounter Visit Diagnoses Not on filedocumented in this encounter Care Teams Felt Checker Relationship Specialty Start Date End Date Corrie Pacheco APRN PCP - General Family Medicine 04/04/18 [place] [address] documented as of this encounter
--- OUTSIDE RECORDS SUMMARY | 2022-02-23 01:44 | XMS_ITS | Encounter Summary ---
:1960 Author Organization [facility] [place] [address] Care Team Providers Name Role Phone Corrie Pacheco APRN Primary Care Provider Encounter Details Date Type Department Care Team Description 05/27/2018 Orders Only General Surgery at [facility] E xocrine pancreatic [facility] insufficiency [facility] [address] [place] GENER[place] SURGERY [address] [place] [address] [phone] (Wo rk) Social History Tobacco Use Types [...] documented as of this encounter Progress Notes Nasima Britton, RN - 05/27/2018 10:53 AM EST Jaciel wants prescriptions to go through mail order. Rx sent to [facility] in [place]. documented in this encounter Plan of Treatment Upcoming Encounters Date Type Specialty Care Team Description 02/23/2022 Office Visit Hematology and Oncology Gigi Sosa MD 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
--- OUTSIDE RECORDS SUMMARY | 2022-02-23 01:44 | XMS_ITS | Encounter Summary ---
:1960 Author Organization [facility] [place] [address] Care Team Providers Name Role Phone Corrie Pacheco APRN Primary Care Provider Reason for Visit Reason Onset Date Comments Post Hospital Discharge 05/19/2018 Encounter Details Date Type Department Care Team Description 05/19/2018 Telephone General Surgery at Katharina Bailye Post Hospital Discharge [facility] Roby, DAMIEN [address] [place] [address] [place], [place] [phone] (Wo rk) Social History Tobacco Use Types [...] this encounter Miscellaneous Notes Telephone Encounter - Katharina Bailey, DAMIEN - 05/19/2018 4:22 PM EST Surgical Oncology Phone Note I called to check in on Jaciel like we discussed at the time of discharge. He has been home now about a week, and it sounds like things are going quite well for him! He is able to eat breakfast, lunch, and dinner, and makes a point to snack in between; states he hasbeen good about drinking fluids. He is moving his bowels routinely. Pain vance, he is only needing to take the Tylenol 1-2 times per day. He has not had to use any of the oxycodone since being home. He has been up walking around, and even made it outside recently despite the chilly weather. He continues with his Lovenox, Reglan, and PPI as prescribed. I reminded him that once the Reglan runs out next week that he is to stop the medication. This will be a trial to see how he does while offthis medication; should he begin having issues once stopping it then Dr. Collazo can re-prescribe it at his follow- up appointment. His previous ELPIDIO drain site still has the urostomy bag over it, however the output dropped off today.They will leave the bag on until per their preference when the [facility] RN comes and discuss with her about switching over to dry guaze dressings if needed. It sounds like Jaciel is doing quite well at home. He has no questions or concerns. We will see him back in clinic as previously scheduled; he knows to call sooner should any questions or concerns arise. Follow up appointments: Future Appointments Date Time Provider Department Center 06/03/2018 3:00 PM LAB, THREE L Lab 3L [facility] 06/03/2018 4:00 PM Lázaro Collazo MD [facility] 06/03/2018 4:00 PM Kathleen Bangura LD [facility] 06/06/2018 1:00 PM Gigi Sosa MD [facility] [place] [facility] Signed: Katharina Bailey APRN Surgical Oncology Service Team Pager #[phone] 05/19/18 4:22 PM documented in this encounter Plan of Treatment Upcoming Encounters Date Type Specialty Care Team Description 02/23/2022 Office Visit Hematology and Oncology Gigi Sosa MD [facility] [place] [address] Ebonie Gordon APRN [address] [place] [address] DR MEDICAL ONCOLOGY [place], [place] [id number] documented as of this encounter Visit Diagnoses Not on filedocumented in this encounter Care Teams Electronic Equipment Trades Worker Relationship Specialty Start Date End Date Corrie Pacheco APRN PCP - General Family Medicine 04/04/[address] [facility], [place] [id number] documented as of this encounter
--- OUTSIDE RECORDS SUMMARY | 2022-02-23 01:44 | XMS_ITS | Encounter Summary ---
:1960 Author Organization [facility] [place] [address] Care Team Providers Name Role Phone Corrie Pacheco APRN Primary Care Provider Reason for Visit Reason Onset Date Comments Follow-up 06/26/2018 Encounter Details Date Type Department Care Team Description 06/26/2018 [facility] [address] [phone] Social History Tobacco Use [...] this encounter Miscellaneous Notes Telephone Encounter - Alejandra Amaya RN - 06/26/2018 10:12 AM EST Called Jaciel at home. He states he was a little nauseated with a headache last night and took a compazine and felt better. Had some nausea this AM took another compazine and felt better and was able to eat and drink. He is voiding fine. Had regular bowel movement today. He has some tingling in hands when he goes out in cold. He is eating and drinking room temperature food and drinks. He has our phone numbers and will call with questions or concerns. He is due in tomorrow for pump disconnect. documented in this encounter Plan of Treatment Upcoming Encounters Date Type Specialty Care Team Description 02/23/2022 Office Visit Hematology and Oncology Gigi Sosa MD [facility] [place] [address] Ebonie Gordon APRN [address] [place] [address] DR MEDICAL ONCOLOGY [place], [place] [id number] documented as of this encounter Visit Diagnoses Not on filedocumented in this encounter Care Teams Graduating Machine Operator Relationship Specialty Start Date End Date Corrie Pacheco APRN PCP - General Family Medicine 04/04/18 [address] [place] [address] documented as of this encounter
--- OUTSIDE RECORDS SUMMARY | 2022-02-23 01:44 | XMS_ITS | Encounter Summary ---
:1960 Author Organization [facility] [place] [address] Care Team Providers Name Role Phone Corrie Pacheco APRN Primary Care Provider Reason for Referral Diagnostic Test (Routine) - Closed Specialty Diagnoses / Procedures Referred By Contact Refer red To Contact Radiology Diagnoses Malignant neoplasm of head of pancreas Gigi Sosa MD [facility] Interventionl Rad Procedures IR Mediport Placement / Exchange [facility] [place] [address] [place] [address] Referral ID Status Reason Start Date Expiration Date Visits V isits Requested Authorized [id number] Closed Specialty 06/06/2018 06/06/2019 1 1 Service Requested Reason for Visit Diagnostic Test (Routine) - Closed Specialty Diagnoses / Procedures Referred By Contact Refer red To Contact Radiology Diagnoses Malignant neoplasm of head of pancreas Gigi Sosa MD [facility] Inter[facility] Rad Procedures IR Mediport Placement / Exchange [facility] [place] [address] [place] [id number] Referral ID Status Reason Start Date Expiration Date Visits V isits Requested Authorized [id number] Closed Specialty 06/06/2018 06/06/2019 1 1 Service Requested Encounter Details Date Type Department Care Team Description 06/16/2018 Hospital Encounter Radiology at [facility] Gigi Sosa Malignant neoplasm [facility] MD [address] of head [address] [place] [address] ONCOLOGY [phone] [place] [address] Social History Tobacco Use Types Packs/Day Years [...] Sign Reading Time Taken Comments Blood Pressure 110/66 06/16/2018 2:00 PM EST Pulse 69 06/16/2018 1:20 PM EST Temperature 36.5 ??C (97.7 ??F) 06/16/2018 1:40 PM EST Respiratory Rate 16 06/16/2018 2:00 PM EST Oxygen Saturation 100% 06/16/2018 2:00 PM EST Inhaled Oxygen Concentration - - Weight - - Height - - Body Mass Index - - documented in this encounter Discharge Instructions Discharge InstructionsDeb Barnes RN - 06/16/2018 12:41 PM EST Images from the original note were not included. [facility] Department of Vascular and Interventional Radiology Discharge Instructions for your Chest Port You have received a ???Power Port?? , which provides access for infusions and blood draws. What makes this a ???Power Port?? is the unique ability to ???power inject?? contrast (intravenous dye) through the port when getting a CT scan, which produces superior images (pictures). Patients who don???thave these special ports need to have an IV started if they need dye injected for their CT scan. Your port is printed with the letters ???CT?? which can be detected by x- ray to identify it as a ???Power Port?? . You will be provided with an ID card stating the wheel polisher and type of port you have. Please carry this with you in a safe place. Bandage: There is a sterile dressing over the port site consisting of small gauze with a clear dressing (Tegaderm or [id number] ). This dressing should be left in place for 48 hours. If the clear dressing becomes loose you should place tape over the edges to secure it in place. Note: If you have steri-strips beneath your dressing, simply allow them to fall off. Do not peel them off. Pain: Apply ice bag to site (s) at 30 minute intervals (30 minutes on and 30 minutes off) for 24 hours?? . May use as needed for pain and/or bruising after 24 hours. Bathing: Do not take a shower until 48 hours after your port is placed; after this time you may shower with [...] or swimming for one week following port placement. Flushing the mediport: If your port has not been used, it must be flushed every 30 days. What to expect when your port is accessed: 1. You may feel tenderness the first few times it is accessed but generally this subsides over time.Ask your healthcare provider to use a local anesthetic on the site if discomfort is a problem for you. You may ask for a prescription for a topical cream (EMLA) from your clinician; you may apply at home prior to your appointments, to help numb the skin over your port. 2. The clinician should be wearing sterile gloves and a mask during the access procedure. Anyone in the room with you should also have a mask on. 3. The skin over and 2 inches around the port should be cleaned with a disinfectant 4. Tell the clinician if you would like the skin numbed (lidocaine) before the access needle is placed. 5. Unless you are unable to take heparin (blood thinner), the port should be injected with a heparinsolution before deaccess (at end of each treatment or blood draw). When to call your healthcare provider: ??? If you notice bleeding from the puncture site in your neck, or from the port incision on your chest, you should apply firm pressure over the site for 10-15 minutes, keeping the site covered. Call if you are still bleeding after 10-15 minutes. ??? If you develop pain, redness, drainage or swelling at or around the port site, or the puncture site in the neck ??? If you develop fever (elevation of more than 2 degrees or greater than 101F) and/or shaking chills When to call the Interventional Radiology Department: Please call with any questions or concerns. Ifit is during regular office hours, please call [phone]. If it is after regular office hours, oron weekends or holidays, please call [phone] and ask to speak to the Profile Grinder on callfor Interventional Radiology. XXX You have received medication during your procedure to help lessen anxiety and keep you comfortable. These medications affect judgement and reaction time. We recommend that you do not drive, operateequipment, sign any important documents, or smoke unattended [...] Nausea. of pancreas, Drug-induced nausea and vomiting spelph-ybflzxcw-gaxnios Take 1-2 capsules 270 capsule 3 05/0710/25/2018 [...] documented as of this encounter Progress Notes Deb Barnes RN - 06/16/2018 12:40 PM EST ANGIO NURSING DATABASE Name: JACIEL SIERRA Date of : 1960 AGE: 57 y.o. [address]: [address] [place] [address] (home) Mobile: Telephone Information: Referring Provider: Gigi Sosa REASON FOR VISIT: Order Questions Answers Where will study be performed? [facility] [120] Prefered insertion location: No Preference Is the patient on anticoagulant / anitplatelet therapy ? No Reason for exam and clinical history: pancreatic cancer, needs mediport for chemotherapy Exam/Procedure requested: Single lumen mediport Date/time of procedure: 06/16/18 1215 Pertinent info from Pre-call (if any): Labs ordered: None, most recent platelet count 06/03/18 - 278 Meds stopped: None, all okay. No Known Allergies Pertinent PMH: Patient Active Problem List Diagnosis Code ??? Malignant neoplasm of head of pancreas C25.0 ??? Exocrine pancreatic insufficiency K86.81 ??? Pancreatic cancer C25.9 ??? Severe protein-calorie malnutrition E43 Pertinent PSH: Past Surgical History: Procedure Laterality Date ??? PRO ENDOSCOPIC US EXAM, ESOPH N/A 04/04/2018 UPPER EUS- ENDOSCOPIC ULTRASOUND performed by Felipe Soto MD at [facility] ENDOSCOPY ? ? PRO ERCP BILIARY OR PANCREATIC DUCT STENT REMOVAL & EXCHANGE W/DIL&WIRE 04/16/2018 ERCP, W REMOVAL& EXCHANGE STENT, BILIARY/PANCREATIC DUCT performed by Mahamed Bro MD at [facility] ENDOSCOPY ??? PRO ERCP STENT PLACEMENT BILIARY OR PANCREATIC DUCT 04/04/2018 ERCP, W PLCMNT ENDOSCOPIC STENT BILIARY OR PANCREATIC DUCT performed by Felipe Soto MD at [facility] ENDOSCOPY ??? PRO ERCP, SPHINCTEROTOMY N/A 04/04/2018 ERCP W/SPHINCTEROTOMY/PAPILLOTOMY performed by Felipe Soto MD at [facility] ENDOSCOPY ??? PRO ERCP, W/REMOVAL STONE, ZAHIDA/PANCR DUCTS 04/16/2018 ERCP W/REMOVAL CALCULI/DEBRIS FROM BILARY/PANCREATIC DUCT(S) performed by Mahamed Bro MD at [facility] ENDOSCOPY ??? PRO ERCP,DIAGNOSTIC N/A 04/16/2018 ERCP performed by Mahamed Bro MD at [facility] ENDOSCOPY ??? PRO LAP, DIAGNOSTIC ABDOMEN N/A 04/23/2018 LAPAROSCOPY, DIAGNOSTIC, ABDOMEN (WRVU 5.14) performed by Lázaro Collazo MD at [facility] OSC ??? PRO UNLISTED PX PNCRS N/A 05/05/2018 ROBOTIC PANCREATECTOMY,WHIPPLE, PARTIAL GASTRECTOMY W/ PANCREATOJEJUNOSTOMY performed by Lázaro Collazo MD at [facility] MAIN OR Date/Procedure Meds given/comments 06/16/18: Mediport Placement Ancef 2g, Fentanyl 125mcg, Versed 2.5mg Laboratory Results: Lab Results Component Value Date CREATININE 0.82 06/03/2018 Lab Results Component Value Date K 4.5 06/03/2018 Lab Results Component Value Date PLATELET 278 06/03/2018 Medications: Prior to Admission medications Medication Sig Start Date End Date Taking? Authorizing Provider prochlorperazine (COMPAZINE) 10 mg Tablet Take 1 tablet by mouth every 6 hours as needed for Nausea.06/06/18 Gigi Sosa MD sjcowh-ceuawphb-zbecchx (CREON) 24,000-76,000 -120,000 unit Capsule, Delayed Release(E.C.) Take 1-2 capsules by mouth 3 times daily (with meals). With Meals: Take 1-2 capsules by mouth. With Snacks: Take 1 capsule by mouth. 05/27/18 Lázaro Collazo MD omeprazole (PRILOSEC) 40 mg Capsule, Delayed [...] Reported on 06/06/2018 05/12/18 Katharina Bailey APRN Deb Barnes RN - 06/16/2018 12:27 PM EST To procedure room 2 via stretcher. Onto table Supine. All monitors, O2, safety strap in place. Med'sper protocol. Abhijeet De La Rosa APRN - 06/16/2018 12:26 PM EST ASA: 3: Patient with severe systemic disease Mallampati: II: tonsillar pillars are blocked by the tongue Cardiovascular: Rhythm: Regular Rate: Normal Pulmonary: Breath sounds clear to auscultation Consent: The sedation plan, its benefits and risks, and alternatives were discussed with the patient. The planned procedure, its benefits and risks, and alternatives were discussed with the patient. Thepatient consented to the procedure. Sedation Plan: moderate (conscious sedation) documented in this encounter H&P Notes Gato Morel MD - 06/13/2018 11:20 AM EST Images from the original note were not included. INTERVENTIONAL RADIOLOGY FOCUSED H&P and PRE-PROCEDURE NOTE: PCP: Corrie Pacheco APRN Referring Provider: Gigi Sosa Planned Procedure:Planned procedure: Placement of a single lumen Mediport Procedure Indication: Durable venous access for administration of systemic chemotherapy for pancreatic cancer Order Questions Answers Where will study be performed? [facility] [120] Prefered insertion location: No Preference Is the patient on anticoagulant / antiplatelet therapy? No Reason for exam and clinical history: pancreatic cancer, needs mediport for chemotherapy Exam/Procedure requested: Single lumen mediport Presenting Diagnosis/ Complaint: Jaciel Sierra is a 57 y.o. 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 Sosa on 06/06/18. The IR service is consulted for placement of single lumen Mediport for chemotherapy administration. Past Medical/Surgical History: Patient Active Problem List Diagnosis Code ??? Malignant neoplasm of head of pancreas C25.0 ??? Exocrine pancreatic insufficiency K86.81 ??? Pancreatic cancer C25.9 ??? Severe protein-calorie malnutrition E43 No past medical history on file. Past Surgical History: Procedure Laterality Date ??? PRO ENDOSCOPIC US EXAM, ESOPH N/A 04/04/2018 UPPER EUS- ENDOSCOPIC ULTRASOUND performed by Felipe Soto MD at [facility] ENDOSCOPY ? ? PRO ERCP BILIARY OR PANCREATIC DUCT STENT REMOVAL & EXCHANGE W/DIL&WIRE 04/16/2018 ERCP, W REMOVAL& EXCHANGE STENT, BILIARY/PANCREATIC DUCT performed by Mahamed Bro MD at [facility] ENDOSCOPY ??? PRO ERCP STENT PLACEMENT BILIARY OR PANCREATIC DUCT 04/04/2018 ERCP, W PLCMNT ENDOSCOPIC STENT BILIARY OR PANCREATIC DUCT performed by Felipe Soto MD at [facility] ENDOSCOPY ??? PRO ERCP, SPHINCTEROTOMY N/A 04/04/2018 ERCP W/SPHINCTEROTOMY/PAPILLOTOMY performed by Felipe Soto MD at [facility] ENDOSCOPY ??? PRO ERCP, W/REMOVAL STONE, ZAHIDA/PANCR DUCTS 04/16/2018 ERCP W/REMOVAL CALCULI/DEBRIS FROM BILARY/PANCREATIC DUCT(S) performed by Mahamed Bro MD at [facility] ENDOSCOPY ??? PRO ERCP,DIAGNOSTIC N/A 04/16/2018 ERCP performed by Mahamed Bro MD at [facility] ENDOSCOPY ??? PRO LAP, DIAGNOSTIC ABDOMEN N/A 04/23/2018 LAPAROSCOPY, DIAGNOSTIC, ABDOMEN (WRVU 5.14) performed by Lázaro Collazo MD at [facility] OSC ??? PRO UNLISTED PX PNCRS N/A 05/05/2018 ROBOTIC PANCREATECTOMY,WHIPPLE, PARTIAL GASTRECTOMY W/ PANCREATOJEJUNOSTOMY performed by Lázaro Collazo MD at [facility] MAIN OR Medications: Current Outpatient Medications on File Prior to Encounter Medication Sig Dispense Refill ??? prochlorperazine (COMPAZINE) 10 mg Tablet Take 1 tablet by mouth every 6 hours as needed for Nausea. 30 tablet 5 ??? fqjzgp-yukfvrzl-jmughot (CREON) 24,000-76,000 -120,000 unit Capsule, Delayed Release(E.C.) Take 1-2 capsules by mouth 3 times daily (with meals). With Meals: Take 1-2 capsules by mouth. With Snacks: Take 1 capsule by mouth. 270 capsule 3 ??? omeprazole (PRILOSEC) 40 mg Capsule, Delayed Release(E.C.) Take 1 capsule by mouth daily for 360days. 90 capsule 3 ??? acetaminophen (TYLENOL) 325 mg Tablet Take 2 tablets by mouth every 6 hours as needed for Pain. ??? docusate sodium (COLACE) 100 mg Capsule Take 1 capsule by mouth 2 times daily as needed for Constipation. (Patient not taking: Reported on 06/06/2018) No current facility-administered medications on file prior to encounter. Allergies: Patient has no known allergies. Social History and Habits: Social History Socioeconomic History ??? Marital status: Spouse name: Not on file ??? Number of children: Not on file ??? Years of education: Not on file ??? Highest education level: Not on file Social Needs ??? Financial resource strain: Not on file ??? Food insecurity - worry: Not on file ??? Food insecurity - inability: Not on file ??? Transportation needs - medical: Not on file ??? Transportation needs - non-medical: Not on file Occupational History ??? Not on file Tobacco Use ??? Smoking status: Never Smoker ??? Smokeless tobacco: Never Used Substance and Sexual Activity ??? Alcohol use: No Frequency: Never Comment: 2-3X/month ??? Drug use: No ??? Sexual activity: Not on file Other Topics Concern [...] 06/03/2018 ALT 37 06/03/2018 PROT 7.3 06/03/2018 Imagin04/04/18 Physical Exam: Pending (to be performed in angio the day of procedure) ASA: Pending (to be assessed in angio the day of procedure) Mallampati Class: Pending (to be assessed in angio the day of procedure) Assessment: 57 y.o. male with pancreatic CA who presents to the IR service for placement of single lumen Mediport for chemotherapy administration. Plan: Plan Planned procedure: Placement of a single lumen Mediport Labs to be performed day of procedure: No labs Sedation: moderate (conscious sedation) Prophylactic antibiotic : Other (see comments)(Clindamycin) Contrast: No contrast Additional medications for procedure: Lidocaine Planned access site: At discretion of proceduralist. Likely RIGHT anterior upper chest and RIGHT internal jugular vein. Position: Supine Consent: Pending 06/13/2018 documented in this encounter Procedure Notes Kalia Jacome MD - 06/16/2018 1:37 PM EST IR PROCEDURE NOTE Procedure: Port placement. Indication for Procedure: Per Dr. Morel Jaciel Sierra is a 57 y.o. 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 Sosa on 06/06/18. The IR service is consulted for placement of single lumen Mediport for chemotherapy administration. Procedure events and findings: After obtaining informed consent patient was positioned supine on procedure table. Right neck base and upper chest prepped and draped with maximum sterile barrier technique used throughout the procedure. Due to the painful nature of the procedure, patient received split doses of intravenous fentanyl and versed from the IR nurse while pulse, pressure, and oxygen saturation were continuously monitored. Prophylactic antibiotic Ancef 2 grams IV was administered. Local anesthesia provided with 1% lidocaine. Base of right IJ/subclavian accessed with micropuncturetechnique under U/S guidance and a 4Fr sheath placed. After additional local anesthetic with 1% lidocaine and 1% lidocaine with epinephrine, a transverse skin incision was made and a port pocket created with blunt dissection in the upper chest. The port catheter (8Fr) was tunneled from the port pocket to the neck entry site. Single lumen CT injection compatible port was then connected to the catheter and positioned in the port pocket. The guide wire was used to measure the amount of catheter to be placed. The 4Fr sheath was exchanged for a peel- away sheath and the port catheter placed via the peel-away with catheter tip positioned in right atrium under fluoroscopic guidance. Port was accessed and aspirated and flushed readily. The port wasthen loaded with heparin solution. The neck incision was closed with tissue adhesive. The pocket incision was closed with interrupted deep 2-0 resorbable suture, superficial 4-0 resorbable suture and tissue adhesive. Medications: Fentanyl 125 mcg IV, Versed 2.5 mg IV, 1% Lidocaine <10ccs subcutaneous. Antibiotic Prophylaxis: Ancef 2 grams IV. Est Blood Loss: <5cc. Complications: No immediate. Impression: Placement of single lumen CT injection compatible mediport, catheter tip in RA, ready for use. Resident/Fellow: None. Attending: I, Dr. Jacome performed this procedure. I was present during the intraservice time as documented by the IR Nurse. documented in this encounter Plan of Treatment Upcoming Encounters Date Type Specialty Care Team Description 02/23/2022 Office Visit Hematology and Oncology Gigi Sosa MD [facility] [place] [place] [address] Ebonie Gordon, SENIOR ENERGY CONSULTANT[address] [place] [address] documented as of this encounter Procedures Procedure Name Priority Date/Time Associated Diagnosis Comme nts LAB SCAN 06/17/2018 12:00 AM Results for this EST procedure are i n the results section. IR MEDIPORT Routine 06/16/2018 1:39 PM Malignant neoplasm Res ults for this PLACEMENT EST of head of pancreas procedur e are in the results section. documented in this encounter Results SCAN DOC: LAB (06/17/2018 12:00 AM EST) Narrative 06/17/2018 12:00 AM EST This result has an attachment that is no t available. Ordered by an unspecified provider. Scanning Provider MEDIA MGR SCAN EXT ORDR/RSLT IR Mediport Placement / Exchange (06/16/2018 1:39 [...] MAR Action Action Date Dose Rate Site ceFAZolin (ANCEF) 1g in New Bag 06/16/2018 1:00 PM EST 2 g 200 mL/hr dextrose 5% 50mL 2 g, Intravenous, ONCE, 1 dose, On Sat06/16/18 at 1300, Administer over 30 Minutes, Angio/IR (Day of Procedure), Indication for (Active or Suspected): Prophylaxis fentaNYL 50 mcg/mL multi-dose injection Given 06/16/2018 1:12 PM EST 25 mcg 25-50 mcg, Intravenous, EVERY 5 MIN PRN, Starting on Sat06/16/18 at 1202, Until Sat06/16/18 at 1316, Pain, per unit protocol, - Start dose [...] and verbal order., Angio/IR (Intra-Procedure), Routine Given 06/16/2018 1:06 PM EST 25 mcg Given 06/16/2018 1:01 PM EST 25 mcg lidocaine (XYLOCAINE) 10 mg/mL (1 %) Given 06/16/2018 12:[address] 10 mg injection 10 mg 10 mg, Subcutaneous, ONCE, 1 dose, On Sat06/16/18 at 1230, For use in Interventional Radiology (IR) only for procedure with direct provider supervision and verbal order., Angio/IR (Intra-Procedure), Routine lidocaine-EPINEPHrine 1 %-1:100,000 Given 06/16/2018 12:30 PM ES T 50 mLs injection 50 mL 50 mL, Intradermal, ONCE, 1 dose, On Sat06/16/18 at 1230, For use in Interventional Radiology (IR) only for Radiofrequency Ablation of Saphenous Vein procedure with direct provider supervision and verbal order., Angio/IR (Intra-Procedure), Routine lidocaine-EPINEPHrine 2 %-1:100,000 Given 06/16/2018 12:30 PM ES T 1 vial injection 1 dose, Starting on Sat06/16/18 at 1225, Until Sat06/16/18 at 1230, Deb Barnes: cabinet override midazolam (PF) (VERSED) multi-dose injection Given 03/2019 1:13 PM EST 0.5 mg 0.5-1 mg 0.5-1 mg, Intravenous, EVERY 3 MIN PRN, Starting on Sat06/16/18 at 1202, Until Sat06/16/18 at 1316, Sleep, - Start dose; 1 mg (Reduce [...] and verbal order., Angio/IR (Intra-Procedure), Routine Given 06/16/2018 1:06 PM EST 0.5 mg Given 06/16/2018 1:01 PM EST 0.5 mg sodium chloride 0.9 % flush 5 mL Given 06/16/2018 12:30 PM EST 5 mLs 5 mL, Intravenous, EVERY 12 HOURS, First dose on Sat06/16/18 at 1230, Until Discontinued, Day of Surgery (Day of Procedure), Routine sodium chloride 0.9% infusion New Bag 06/16/2018 12:04 PM EST 1,000 mLs 100 mL/hr 1,000 mL, at 100 mL/hr, Intravenous, CONTINUOUS, Starting on Sat06/16/18 at 1230, Until Sat06/16/18 at 1413, Day of Surgery (Day of Procedure) documented in this encounter Care Teams Clearance Center Manager Relationship Specialty Start Date End Date Corrie Pacheco APRN PCP - General Family Medicine 04/04/18 Hector [place] [address] documented as of this encounter
--- OUTSIDE RECORDS SUMMARY | 2022-02-23 01:44 | XMS_ITS | Encounter Summary ---
:1960 Author Organization [facility] [place] [address] Care Team Providers Name Role Phone Corrie Pacheco APRN Primary Care Provider Reason for Referral Diagnostic Test (Routine) - Closed Specialty Diagnoses / Procedures Referred By Contact Refer red To Contact Radiology Diagnoses Malignant neoplasm of head of pancreas Gigi Sosa MD [facility] Interventionl Rad Procedures IR Mediport Placement / Exchange [facility] [place] [address] [place] [address] Referral ID Status Reason Start Date Expiration Date Visits V isits Requested Authorized [id number] Closed Specialty 06/06/2018 06/06/2019 1 1 Service Requested Encounter Details Date Type Department Care Team Description 06/06/2018 Office Visit Hematology/Oncology Gigi Sosa Ma lignant neoplasm of head of pancreas; at [facility] Drug-induced nausea and vomiting [address] [place] [address] ONCOLOGY [phone] [place], [place] [address] Social History Tobacco Use Types [...] Sign Reading Time Taken Comments Blood Pressure 124/74 06/06/2018 12:56 PM EST Pulse 65 06/06/2018 12:56 PM EST Temperature 36.6 ??C (97.9 ??F) 06/06/2018 12:56 PM EST Respiratory Rate 16 06/06/2018 12:56 PM EST Oxygen Saturation 100% 06/06/2018 12:56 PM EST Inhaled Oxygen Concentration - - Weight 71.7 kg (158 lb) 06/06/2018 12:56 PM EST Height 172.7 cm (5' 7.99) 06/06/2018 12:56 PM copied f holly EST Body Mass Index 24.03 06/06/2018 12:56 PM EST documented in this encounter Progress Notes Gigi Sosa MD - 06/06/2018 1:00 PM EST Subjective: Patient ID: Jaciel Combs is [...] and may- catenin (negative for nuclear staining). [id number] is retained in lesional cells. ??Overall, the [...] by Dr. Collazo. On presentation today, he is accompanied by his Demi. He is doing well and recovering well fromsurgery. He has no pain. He is eating well. This has improved and he is putting some weight back on.Prior to the surgery, he had lost weight. He would like his weight to be about 170#. He is taking Creon, 2 with meals and 1 with snacks. His energy level and strength are good. He has been walking his dogs daily. He does take naps on occasion. His bowels and bladder habits are regular. Now and then hehas some tingling in his right hand. This goes away if he moves his hands around. 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 Neurological: Negative. Hematological: Negative. Psychiatric/Behavioral: Negative. Objective: Physical Exam Constitutional: He is oriented to person, place, and time. He appears well- developed and well-nourished. No distress. HENT: Head: Normocephalic and atraumatic. Mouth/Throat: Oropharynx is clear and moist. No oropharyngeal exudate. Eyes: Scleral icterus is present. Cardiovascular: Normal rate and regular rhythm. Pulmonary/Chest: [...] is warm and dry. No rash noted. jaundice Psychiatric: He has a normal mood and affect. His behavior is normal. Vitals reviewed. Labs: WBC/ANC - 6.05/3669, Hgb/Hct - 13.2/39.4, Plts - 295,000. BUN/Cr - 18/0.86. Alb - 3.3. Lytes and LFTs o/w unremarkable CA 19-9 06/06/18 pending 04/15/18 0.7 Assessment and Plan: Mr. Combs is a 57 yo male seen for evaluation and management of pancreatic cancer. He presented in late 03/[address] was done at [facility] and showed intra and extrahepatic biliary ductal dilatation and question of a mass in the duodenum or head of the pancreas. He was referred to GI at [facility] and on 04/04/18 underwent an ERCP with [...] acinar differentiation was seen in this specimen. We reviewed again the role of adjuvant chemotherapy. We again talked about mFolfirinox based on the results of the PRODIGE-24 trial, which randomly assigned 493 patients with histologically proven pancreatic ductal adenocarcinomas 21 to 84 days after R0 or R1 resection, a performance status of 0 or 1,adequate hematologic and renal function, and no cardiac ischemia to six months of gemcitabine alone (28-day cycles of gemcitabine 1000 mg/m2 on days 1, 8, and 15) or modified FOLFIRINOX. At a median follow-up of 34 months, median DFS (the primary endpoint) was significantly better with modified FOLFIRINOX (21.6 versus 12.8 months, HR 0.58, 95% CI 0.46-0.73), as was median overall survival (54.4 versus 35 months, HR 0.64, 95% CI 0.48-0.86). Grade 3 to 4 adverse events that were more frequent with modified FOLFIRINOX included diarrhea (19 versus 4 percent), sensory neuropathy (9 versus 0 percent), fatigue (11 versus 5 percent), and vomiting (5 versus 1 percent). We will also make a referral for an appt with our Familial Cancer program. documented in this encounter Plan of Treatment Upcoming Encounters Date Type Specialty Care Team Description 02/23/2022 Office Visit Hematology and Oncology Gigi Sosa MD [facility] [place] [address] Ebonie Gordon, DAMIEN [address] [place] [address] [place] [address] documented as of this encounter Procedures Procedure Name Priority Date/Time Associated Diagnosis Comme nts LAB SCAN 06/06/2018 12:00 AM Results for this EST procedure are i n the results section . documented in this encounter Results IR Mediport [...] lucina barboza IR Nurse.? Gigi Sosa MD IM IR ORDERABLES SCAN DOC: LAB (06/06/2018 12:00 AM EST) Narrative 06/06/2018 12:00 AM EST This result has an attachment that is no t available. Ordered by an unspecified provider. Scanning Provider MEDIA MGR SCAN EXT ORDR/RSLT documented in this encounter Visit Diagnoses Diagnosis Malignant neoplasm of head of pancreas Drug-induced nausea and vomiting Nausea with vomiting Malignant neoplasm of head of pancreas documented in this encounter Care Teams Contact Center Analyst Relationship Specialty Start Date End Date Corrie Pacheco APRN PCP - General Family Medicine 04/04/18 [place] [address] documented as of this encounter
--- OUTSIDE RECORDS SUMMARY | 2022-02-23 01:44 | XMS_ITS | Encounter Summary ---
:1960 Author Organization [facility] [place] [address] Care Team Providers Name Role Phone Corrie Pacheco APRN Primary Care Provider Encounter Details Date Type Department Care Team Description 06/24/2018 Orders Only Hematology and Oncology at [facility] [place] [address] [place] [address] [phone] (Wo rk) Social History Tobacco Use Types [...] Sosa MD [facility] [place] [address] Ebonie Gordon APRN [address] [place] [address] DR MEDICAL ONCOLOGY [place], [place] [id number] documented as of this encounter Visit Diagnoses Not on filedocumented in this encounter Care Teams Water Manager Relationship Specialty Start Date End Date Corrie Pacheco APRN PCP - General Family Medicine 04/04/[address] [place], [place] [id number] documented as of this encounter
--- OUTSIDE RECORDS SUMMARY | 2022-02-23 01:44 | XMS_ITS | Encounter Summary ---
:1960 Author Organization [facility] [place] [address] Care Team Providers Name Role Phone Corrie Pacheco APRN Primary Care Provider Encounter Details Date Type Department Care Team Description 05/19/2018 Orders Only General Surgery at L[facility]aro Collazo E xocrine pancreatic [facility] insufficiency [facility] [address] GENER[place] SURGERY [address] [place] [address] [phone] (Wo rk) Social History Tobacco Use Types [...] as of this encounter Progress Notes Nasima Britton RN - 05/19/2018 8:34 AM EST Patient needed his prescription sent to [employer] for mail delivery services. documented in this encounter Plan of Treatment Upcoming Encounters Date Type Specialty Care Team Description 02/23/2022 Office Visit Hematology and Oncology Gigi Sosa MD [facility] [place] [place] [address] Ebonie Gordon APRN [address] [place] [address] DR MEDICAL ONCOLOGY [place], [place] [id number] documented as of this encounter Visit Diagnoses Diagnosis Exocrine pancreatic insufficiency Other specified disease of pancreas documented in this encounter Care Teams Pattern Setter Relationship Specialty Start Date End Date Corrie Pacheco APRN PCP - General Family Medicine 04/04/[address] [facility], [place] [phone] documented as of this encounter
--- OUTSIDE RECORDS SUMMARY | 2022-02-23 01:44 | XMS_ITS | Encounter Summary ---
:1960 Author Organization [facility] [place] [address] Care Team Providers Name Role Phone Corrie Pacheco APRN Primary Care Provider Encounter Details Date Type Department Care Team Description 06/03/2018 Laboratory Appointment Lab 3L [facility] Malignant neoplasm of [facility] head [place] [address] Social History Tobacco Use Types [...] and Oncology Gigi Sosa MD [facility] [place] [address] [address] [place] [address] documented as of this encounter Procedures Procedure Name Priority Date/Time Associated Comments Diagnosis HEMOGRAM Routine 06/03/2018 2:39 PM Malignant neoplasm Res ults for this EST of head of pancreas procedur e are in the results section. DIFFERENTIAL, Routine 06/03/2018 2:39 PM Malignant neoplasm Re sults for this AUTOMATED EST of head of pancreas procedur e are in the results section. CBC (WITH DIFF) Routine 06/03/2018 2:39 PM Malignant neoplasm EST of head of pancreas PREALBUMIN Routine 06/03/2018 2:39 PM Malignant neoplasm Res ults for this EST of head of pancreas procedur e are in the results section. COMPREHENSIVE Routine 06/03/2018 2:39 PM Malignant neoplasm Re sults for this METABOLIC PANEL EST of head of pancreas proce dure are in (NON-FASTING) the results section. documented in this encounter Results Differential, Automated (06/03/2018 2:39 PM EST) P athologist Signature Neutrophils % 55.1 % [facility] LABORATORY Neutr Abs (ANC) 2.99 1.70 - [facility] 6.10 [facility] [place] [facility] x10(3)/[facility] LABORATORY Lymphocytes % 29.5 % [facility] Lymphocytes Abs 1.6 0.9 - 3.2 [facility] x10(3)/[facility] LABORATORY Monocytes % 8.9 % [facility] Monocyte Abs 0.5 0.3 - 0.9 [facility] x10(3)/[facility] LABORATORY Eosinophils % 4.1 % [facility] Eosinophils Abs 0.2 0.0 - 0.4 [facility] x10(3)/[facility] LABORATORY Basophils % 1.8 % [facility] Basophils Abs 0.1 0.0 - [address] [facility] x10(3)/[facility] LABORATORY Immature Gran % 0.60 % [facility] Comment: Immature granulocytes(IG's)percentage an d absolute count will include metamyelocytes, myelocytes, and promyelo cytes. Blood smears from CBCs yielding IG's will be scanned manually for concor dance. If this scan disagrees with the automated IG or if promyelocytes are not ed, a manual differential will be performed. [place] Gran Abs 0.03 0.00 - 0.04 x10(3)/[facility] LABORATORY Specimen Anatomical Collection Method Collection Time Receive d Time (Source) Location / / Volume Laterality Blood specimen 06/03/2018 2:39 PM 019 2:45 (specimen) EST PM EST Resulting Agency Comment Spec In Lab Katharina Bailey APRN HEMATOLOGY ORDERABLES Performing Organization Address City/State/ZIP Code [place] [address] (ABNORMAL) Hemogram (06/03/2018 2:39 PM EST) Analysis Performed At Patho logist Time Signature WBC 5.4 4.0 - 9.5 [facility] x10(3)/[facility] LABORATORY RBC 3.62 (L) 4.58 - [facility] 5.54 [facility] [place] [facility] x10(6)/[facility] LABORATORY Hemoglobin 11.7 (L) 13.7 - [place] 16.5 gm/dL [facility] LABOR[facility] Hematocrit 35.4 (L) 40.5 - [place] 48.5 % [facility] MCV 97.8 (H) 82.9 - [place]CO[place] 93.1 [facility] LABORATORY MCH 32.3 (H) 27.5 - [place] 32.1 pg [facility] MCHC 33.1 32.0 - [place] 35.7 gm/dL [facility] Platelets 278 145 - 357 [facility] x10(3)/[facility] LABORATORY RDWSD 48.3 (H) 36.0 - [place] 45.0 [facility] LABORATORY RDWCV 13.2 11.4 - [place] 13.8 % [facility] MPV 9.4 7.6 - 12.9 [facility] LAB[facility] nRBC % Auto 0.0 % [facility] LABOR[facility] nRBC Abs Auto 0.000 0.000 - [place] 0.000 [facility] x10(3)/[facility] LABORATORY Specimen Anatomical Collection Method Collection Time Receive d Time (Source) Location / / Volume Laterality Blood specimen 06/03/2018 2:39 PM 019 2:45 (specimen) EST PM EST Resulting Agency Comment Spec In Lab Katharina Bailey APRN HEMATOLOGY ORDERABLES Performing Organization Address City/[facility]/[place] [address] Prealbumin (06/03/2018 2:39 PM EST) athologist Signature Prealbumin 25 20 - 40 [place] JO[place] mg/dL [facility] Comment: Prealbumin levels are generally lower in the pediatric population; adult concentrations are usually attained near puberty. Specimen Anatomical Collection Method Collection Time Receive d Time (Source) Location / / Volume Laterality Blood specimen 06/03/2018 2:39 PM 019 2:45 (specimen) EST PM EST Resulting Agency Comment Spec In Lab Katharina Bailey APRN CHEMISTRY ORDERABLES Performing Organization Address City/[facility]/ZIP [facility] [place] [address] (ABNORMAL) Comprehensive metabolic panel (non-fasting) (06/03/2018 2:39 PM EST) athologist Signature Glucose Lvl 99 65 - 199 [facility] mg/dL [facility] Comment: Diabetes: >=200 mg/dL plus symp toms BUN 22 (H) 10 - 20 mg/dL [facility] Creatinine 0.82 0.80 - 1.50 mg/dL [facility] LAB[facility] Sodium 140 135 - 145 mmol/L [facility] Potassium 4.5 3.5 - 5.0 mmol/L [facility] Comment: Please note: ??Patients with WBC >100,00 0 may have falsely elevated Potassium levels. ??For accurate Potassium quantif ication in these patients send serum separator tube (gold top) for subsequent determinations. ??Contact the Clinical Chemistry Laboratory if there are any qu estions. Chloride 102 98 - 107 mmol/L [facility]OR[facility] CO2 28 22 - 31 mmol/L [facility] Anion Gap 10 5 - 15 mmol/L [facility] Calcium 9.2 8.5 - 10.5 mg/dL [facility] Total Protein 7.3 6.1 - 8.0 gm/dL [facility] Albumin 3.8 3.2 - 5.2 gm/dL [facility] AST 25 0 - 39 unit/L [facility] ALT 37 0 - 55 unit/L [facility] Alk Phos 75 40 - 120 unit/L [facility] Total Bilirubin 1.1 0.2 - 1.3 mg/dL [facility] Estimated GFR 97 >=60 mL/min/1.73 m?? [facility] Comment: The eGFR was calculated using the CKD-EP I equation. As with all creatinine based estimates of kidney function, eGFR values calculated with the CKD-EPI equation are not accurate in patients wi th acute kidney failure, extremes of body mass or the acutely ill. http://[employer]/[facility] POTEAUnkf eGFR 113 >=60 mL/min/1.73 m?? [facility] Comment: The eGFR was calculated using the CKD-EP I equation. As with all creatinine based estimates of kidney function, eGFR values calculated with the CKD-EPI equation are not accurate in patients wi th acute kidney failure, extremes of body mass or the acutely ill. http://[employer]/DHnkf Specimen Anatomical Collection Method Collection Time Receive d Time (Source) Location / / Volume Laterality Blood specimen 06/03/2018 2:39 PM 019 2:45 (specimen) EST PM EST Resulting Agency Comment Spec In Lab Katharina Bailey APRN CHEMISTRY ORDERABLES Performing Organization Address City/State/ZIP Code Phon e Number [place] [phone] documented in this encounter Visit Diagnoses Diagnosis Malignant neoplasm of head of pancreas documented in this encounter Care Teams Bus Van Driver Relationship Specialty Start Date End Date Corrie Pacheco APRN PCP - General Family Medicine 04/04/18 [place] [address] documented as of this encounter
--- OUTSIDE RECORDS SUMMARY | 2022-02-23 01:44 | XMS_ITS | Encounter Summary ---
:1960 Author Organization [facility] [place] [place] [address] Care Team Providers Name Role Phone Corrie Pacheco APRN Primary Care Provider Reason for Visit Reason Comments Chemotherapy Cycle 2, Day 1 Folfirinox Treatment/Therapy Plan Authorization (Routine) - Closed Specialty Diagnoses / Procedures Referred By Contact Refer red To Contact Hematology and Diagnoses Malignant neoplasm of head of pancreas Gigi Sosa St[facility] Hem Onc Oncology Procedures TC APREPITANT, 1 MG, INJECTION TC PALONOSETRON HCL, 25MCG, INJECTION (ALOXI) TC OXALIPLATIN, 0.5MG, INJECTION (ELOXATIN) TC IRINOTECAN, 20MG (CAMPTOSAR) TC FLOUROURACIL, 500MG MD Infusion [address] ONCOLOGY [address] [place] [address] Referral ID Status Reason Start Date Expiration Date Visits Requ ested Visits Authorized [id number] Closed 06/06/2018 06/06/2019 30 30 Encounter Details Date Type Department Care Team Description 07/08/2018 Infusion Hematology Oncology at [facility] lignant neoplasm of head [facility] of [address] [phone] Social History Tobacco Use [...] Sign Reading Time Taken Comments Blood Pressure 109/65 07/08/2018 8:13 AM EST Pulse 84 07/08/2018 8:13 AM EST Temperature 36.6 ??C (97.9 ??F) 07/08/2018 8:13 AM EST Respiratory Rate 18 07/08/2018 8:13 AM EST Oxygen Saturation 99% 07/08/2018 8:13 AM EST Inhaled Oxygen Concentration - - Weight 68.6 kg (151 lb 3.2 oz) 07/08/2018 8:13 AM EST Height 170.2 cm (5' 7) 07/08/2018 8:13 AM EST Body Mass Index 23.68 07/08/2018 8:13 AM EST documented in this encounter Progress Notes Lui Arteaga RN - 07/08/2018 8:00 AM EST INFUSION THERAPY ADMINISTRATION NOTES DIAGNOSIS: Pancreatic cancer CYCLE #2: Day 1 REASON FOR VISIT: FOLFOX infusion and initiation of continunous home 5FU infusion via CADD pump provided by [employer] MA[employer] [place] offers no complaints. OBJECTIVE LAB DATA: Labs done and reviewed by provider on 07/04/18; WBC 7.37, Hgb 15.5, Hct 43.4, PLT 221k, ANC 5.22, BUN 21, Cr 0.94 Pre administration: Chemotherapy orders independently verified for drug name, route, and dosage per patient's height, weight and BSA by Lui Arteaga RN and on-site pharmacist. At time of administration Patient identity verified using patient's name and date of at the chair/bedside by double RN check just prior to initiating the patient's home infusion chemotherapy via CADD pump provided by [employer]. Fluorouracil 4,440 mg over 46 hours, IV via CADD pump. Amount infused verified by double RN check after 15 minutes and appropriate amount had infused. REACTIONS (DESCRIPTION, TIME, INTERVENTION AND EFFECTIVENESS) none ASSESSMENT Jaciel was awake, alert and tolerated treatment well. PLAN Return to clinic on Saturday07/10/18 ~1130 for disconnect. documented in this encounter Plan of Treatment Upcoming Encounters Date Type Specialty Care Team Description 02/23/2022 Office Visit Hematology and Oncology Gigi Sosa MD [facility] [place] [address] Ebonie Gordon APRN [address] [place] [address] [place] [address] documented as of this encounter Visit Diagnoses Diagnosis Malignant neoplasm of head of pancreas documented in this encounter Administered Medications Inactive Administered Medications - up to 3 most recent administrations Medication Order MAR Action Action Date Dose Rate Site aprepitant (CINVANTI) injection Given 07/08/2018 8:54 AM EST 130 mg Emul 130 mg 130 mg, Intravenous, ONCE, 1 dose, On Sat07/08/18 at 0845, Alternative administration of IV push over 2 minutes is a recommendation from the hay baler., Routine atropine injection 0.5 mg Given 07/08/2018 11:22 AM EST 0.5 mg 0.5 mg, Intravenous, ONCE, 1 dose, On Sat07/08/18 at 0845, Administer prior to IRINOtecan, Routine dexamethasone (DECADRON) tablet 10 mg Given 07/08/2018 8:53 AM EST 10 mg 10 mg, Oral, ONCE, 1 dose, On Sat07/08/18 at 0845, Administer prior to chemotherapy, Routine fluorouracil (ADRUCIL) 4,440 mg in Given 07/08/2018 1:33 PM EST 4,440 mg 3 mL/hr sodium chloride 0.9% 138 mL chemo infusion 4,440 mg (2,400 mg/m2/dose ? 1.85 m2 Treatment Plan BSA from Recorded weight), Intravenous, ONCE, 1 dose, On Sat07/08/18 at 1215, Administer over 46 Hours, Warning Vesicant/Irritant Medication To be infused via an ambulatory infusion CADD Legacy Plus pump continuously IV at 3 mL/hr for 46 hours. Pump contains a 46 hour supply and provides a daily dose of 1200 mg/m2/day = 2400 mg/m2 IV over 46 hours with 12 mL of overfill in bag. IRINOtecan (CAMPTOSAR) 280 mg in New Bag 07/08/2018 11:[address] 280 mg 343 mL/hr dextrose 5% 514 mL chemo infusion 280 mg, Intravenous, ONCE, 1 dose, On Sat07/08/18 at 0945, Administer over 90 Minutes ondansetron (ZOFRAN) injection 8 mg Given 07/08/2018 8:59 AM EST 8 mg 8 mg, Intravenous, ONCE, 1 dose, On Sat07/08/18 at 0845 OXALIplatin (ELOXATIN) 150 mg in New Bag 07/08/2018 9:30 AM ES T 150 mg 198 mL/hr dextrose 5% 280 mL chemo infusion 150 mg, Intravenous, ONCE, 1 dose, On Sat07/08/18 at 0945, Administer over 85 Minutes, Administer first. Compatible with dextrose-containing solution only. Warning Vesicant/Irritant Medication documented in this encounter Care Teams Mapping Supervisor Relationship Specialty Start Date End Date Corrie Pacheco APRN PCP - General Family Medicine 04/04/18 [place] [address] documented as of this encounter
--- OUTSIDE RECORDS SUMMARY | 2022-02-23 01:44 | XMS_ITS | Encounter Summary ---
:1960 Author Organization [facility] [place] [address] Care Team Providers Name Role Phone Corrie Pacheco APRN Primary Care Provider Encounter Details Date Type Department Care Team Description 07/10/2018 Clinical Support Hematology/Oncology Ольга Duke neoplasm of at [facility] LORETTA Clinton head of pancreas [address] [place] [phone] Social History Tobacco Use Types Packs/Day [...] encounter Progress Notes Ольга Duke, RD - 07/10/2018 10:30 AM EST ONCOLOGY DIETITIAN FOLLOW UP NOTE Diagnosis: [...] - felt hungry and tolerated without issue English toast last night - two slices Low [...] day--color has normalized, dosing Creon 24 : 1 with meals . + gas. Inquired about dosing more with larger meals Other:____uncontrolled pain with impaired oral intake___depression___limited social support____limited financial resources Increasing energy--now walking his dogs Objective: 07/08/18: 9.3% decr in 2 weeks; severe Wt Readings from Last 3 Encounters: 07/10/18 68.7 kg (151 lb 6.4 oz) 07/08/18 68.6 kg (151 lb 3.2 oz) 07/04/18 69.4 kg (153 lb) 06/19/18: Gain Weight History: UBW: 231 pounds [...] wasting Pertinent Labs: Reviewed Medications: Reviewed Assessment/Plan: Severe weight decrease in 2 weeks. Reports diarrhea and decr appetite. He decreased Creon intake to one 24,000 with meals. We discussed increasing back to two with meals. Despite decr intake, he may have greater asynchrony of digestion, as evidence by diarrhea, unintentional weightloss, and increased gas. Recommended high protein/high calorie liquid supplement. D/t cold sensitivity, suggested hot CIB. Provided samples. Will follow up with Mr. Combs in 1-2 weeks. Provided him contact information should questions arise prior to that. documented in this encounter Plan of Treatment Upcoming Encounters Date Type Specialty Care Team Description 02/23/2022 Office Visit Hematology and Oncology Gigi Sosa MD [facility] [place] [address] Ebonie Gordon APRN [address] [place] [address] DR MEDICAL ONCOLOGY [place], [place] [id number] documented as of this encounter Visit Diagnoses Diagnosis Malignant neoplasm of head of pancreas documented in this encounter Care Teams It Technical Architect Relationship Specialty Start Date End Date Corrie Pacheco APRN PCP - General Family Medicine 04/04/18 [address] [facility] [place] [address] documented as of this encounter
--- OUTSIDE RECORDS SUMMARY | 2022-02-23 01:44 | XMS_ITS | Encounter Summary ---
:1960 Author Organization [facility] [place] [address] Care Team Providers Name Role Phone Corrie Pacheco APRN Primary Care Provider Encounter Details Date Type Department Care Team Description 06/17/2018 Orders Only Hematology and Oncology at Rip eGigi MD [facility] [place] [address] [place] [address] [phone] (Wo rk) Social History Tobacco Use Types [...] Hematology and Oncology Gigi Sosa MD [facility] [place] [address] Ebonie Gordon APRN [address] [place] [address] DR MEDICAL ONCOLOGY [place], [place] [id number] documented as of this encounter Visit Diagnoses Not on filedocumented in this encounter Care Teams Workers Compensation Claims Analyst Relationship Specialty Start Date End Date Corrie Pacheco APRN PCP - General Family Medicine 04/04/[address] [place], [place] [id number] documented as of this encounter
--- OUTSIDE RECORDS SUMMARY | 2022-02-23 01:44 | XMS_ITS | Encounter Summary ---
:1960 Author Organization [facility] [place] [address] Care Team Providers Name Role Phone Corrie Pacheco APRN Primary Care Provider Reason for Visit Reason Comments Chemotherapy FOLFOX, Cycle 1, Day 1 Treatment/Therapy Plan Authorization (Routine) - Closed Specialty Diagnoses / Procedures Referred By Contact Refer red To Contact Hematology and Diagnoses Malignant neoplasm of head of pancreas Gigi Sosa Stj Hem Onc Oncology Procedures TC APREPITANT, 1 MG, INJECTION TC PALONOSETRON HCL, 25MCG, INJECTION (ALOXI) TC OXALIPLATIN, 0.5MG, INJECTION (ELOXATIN) TC IRINOTECAN, 20MG (CAMPTOSAR) TC FLOUROURACIL, 500MG MD Infusion [address] [place] [phone] [place] [address] Referral ID Status Reason Start Date Expiration Date Visits Requ ested Visits Authorized [id number] Closed 06/06/2018 06/06/2019 30 30 Encounter Details Date Type Department Care Team Description 06/25/2018 Infusion Hematology Oncology at [facility] lignant neoplasm of head [facility] of [address] [phone] Social History Tobacco Use [...] Sign Reading Time Taken Comments Blood Pressure 131/73 06/25/2018 8:27 AM EST Pulse 66 06/25/2018 8:27 AM EST Temperature 36.5 ??C (97.7 ??F) 06/25/2018 8:27 AM EST Respiratory Rate 18 06/25/2018 8:27 AM EST Oxygen Saturation 100% 06/25/2018 8:27 AM EST Inhaled Oxygen Concentration - - Weight 75.6 kg (166 lb 9.6 oz) 06/25/2018 8:27 AM EST Height 172.7 cm (5' 7.99) 06/25/2018 8:27 AM EST Body Mass Index 25.34 06/25/2018 8:27 AM EST documented in this encounter Progress Notes Zuly Reyes RN - 06/25/2018 8:30 AM EST INFUSION THERAPY ADMINISTRATION NOTES DIAGNOSIS: Pancreatic cancer CYCLE #1, Day 1 REASON FOR VISIT: FOLFOX infusion and initiation of continunous home 5FU infusion via CADD pump provided by [employer] SUBJECTIVE Jaciel offers no complaints. OBJECTIVE LAB DATA: Labs reviewed and found adequate for treatment. Pre administration: Chemotherapy orders independently verified for drug name, route, and dosage per patient's height, weight and BSA by Zuly Reyes RN and Rick Mercer [facility]. At time of administration Patient identity [...] treatment well. PLAN Return to clinic on Saturday06/27/18 @ 1100 for disconnect. Pt. chemo teaching instructions included: During clinic hours (8am-5pm Saturday-Saturday): pt. can call [phone] with questions or concerns. After clinic hours (5pm-8am Saturday-Saturday and weekends) pt can call [phone] and ask for the hauling contractor/oncologist road freight conductor. Jaciel Combs verbalized understanding of potential chemotherapy side effects and home care including but not limited to- handwashing to prevent infection, signs and symptoms of low blood counts (fever, fatigue, bleeding), to call with a fever of 100.4 or greater, any significant constipation/diarrhea, importance of nutrition and fluid intake (drinking at least 32-64 ounces of non-caffeinated beverages/day), mouth care. Jaciel Combs verbalized understanding of how to take prescription medications given for home use after chemotherapy. documented in this encounter Plan of Treatment Upcoming Encounters Date Type Specialty Care Team Description 02/23/2022 Office Visit Hematology and Oncology Gigi Sosa MD [facility] [place] [address] Ebonie Gordon, [address] [place] [address] documented as of this encounter Visit Diagnoses Diagnosis Malignant neoplasm of head of pancreas documented in this encounter Administered Medications Inactive Administered Medications - up to 3 most recent administrations Medication Order MAR Action Action Date Dose Rate Site aprepitant (CINVANTI) injection Given 06/25/2018 9:06 AM EST 130 mg Emul 130 mg 130 mg, Intravenous, ONCE, 1 dose, On Sat06/25/18 at 0900, Alternative administration of IV push over 2 minutes is a recommendation from the ice scraper., Routine atropine injection 0.5 mg Given 06/25/2018 11:08 AM EST 0.5 mg 0.5 mg, Intravenous, ONCE, 1 dose, On Sat06/25/18 at 0900, Administer prior to IRINOtecan, Routine dexamethasone (DECADRON) tablet 10 mg Given 06/25/2018 9:03 AM EST 10 mg 10 mg, Oral, ONCE, 1 dose, On Sat06/25/18 at 0900, Administer prior to chemotherapy, Routine fluorouracil (ADRUCIL) 4,440 mg in Given 06/25/2018 1:00 PM EST 4,440 mg 3 mL/hr sodium chloride 0.9% 138 mL chemo infusion 4,440 mg (2,400 mg/m2/dose ? 1.85 m2 Treatment Plan BSA from Recorded weight), Intravenous, ONCE, 1 dose, On Sat06/25/18 at 1230, Administer over 46 Hours, Warning Vesicant/Irritant Medication To be infused via an ambulatory infusion CADD Legacy Plus pump continuously IV at 3 mL/hr for 46 hours. Pump contains a 46 hour supply and provides a daily dose of 1200 mg/m2/day = 2400 mg/m2 IV over 46 hours with 12 mL of overfill in bag. IRINOtecan (CAMPTOSAR) 280 mg in New Bag 06/25/2018 11:[address] 280 mg 343 mL/hr dextrose 5% 514 mL chemo infusion 280 mg, Intravenous, ONCE, 1 dose, On Sat06/25/18 at 1000, Administer over 90 Minutes, Dose Ordered = 278 mg (150 mg/m2). Pharmacist rounded dose per procedure. OXALIplatin (ELOXATIN) 150 mg in New Bag 06/25/2018 9:37 AM ES T 150 mg 198 mL/hr dextrose 5% 280 mL chemo infusion 150 mg, Intravenous, ONCE, 1 dose, On Sat06/25/18 at 1000, Administer over 85 Minutes, Administer first. Compatible with dextrose-containing solution only. , Warning Vesicant/Irritant Medication , Dose Ordered = 157 mg (85 mg/m2). Pharmacist rounded dose per procedure. palonosetron (ALOXI) injection 0.25 mg Given 06/25/2018 9:05 AM EST 0.25 mg 0.25 mg, Intravenous, ONCE, 1 dose, On Sat06/25/18 at 0900, Administer over 30 seconds., Routine documented in this encounter Care Teams Construction Administrator Relationship Specialty Start Date End Date Corrie Pacheco APRN PCP - General Family Medicine 04/04/18 [place] [address] documented as of this encounter
--- OUTSIDE RECORDS SUMMARY | 2022-02-23 01:44 | XMS_ITS | Encounter Summary ---
:1960 Author Organization [place] [address] Care Team Providers Name Role Phone Corrie Pacheco APRN Primary Care Provider Reason for Visit Reason Comments Medication Refill Encounter Details Date Type Department Care Team Description 07/20/2018 Refill General Surgery at Lázaro Collazo E xocrine pancreatic [facility] [place] [address] [place] [address] [phone] (Wo rk) Social History Tobacco Use Types [...] Sosa MD [facility] [place] [address] Ebonie Gordon APRN [address] [place] [address] DR MEDICAL ONCOLOGY [place], [place] [phone] documented as of this encounter Visit Diagnoses Diagnosis Exocrine pancreatic insufficiency Other specified disease of pancreas documented in this encounter Care Teams Engraver Steel Plate Relationship Specialty Start Date End Date Corrie Pacheco APRN PCP - General Family Medicine 04/04/[address] [place] [place] [address] documented as of this encounter
--- OUTSIDE RECORDS SUMMARY | 2022-02-23 01:44 | XMS_ITS | Encounter Summary ---
:1960 Author Organization [facility] [place] [address] Care Team Providers Name Role Phone Corrie Pacheco APRN Primary Care Provider Reason for Visit Reason Onset Date Comments Diarrhea 06/30/2018 Diarrhea off/on thro [facility] weekend Encounter Details Date Type Department Care Team Description 06/30/2018 Telephone Hematology/Oncology at Shira Jordan, Diarrhea (Diarrhea [facility] RN off/on throughout [address] weekend) [place] [phone] Social History Tobacco Use Types Packs/Day Years [...] this encounter Miscellaneous Notes Telephone Encounter - Shira Jordan RN - 06/30/2018 11:35 AM EST Patient called to report he was experiencing liquid stool intermittently throughout the weekend. He denies abdominal cramping, nausea/vomiting, or fever. He has not taken any medication to stop the diarrhea. We discussed that he could take imodium with each loose stool. Patient returned instruction, is going to obtain imodium and we will call patient between [phone] tomorrow to follow up if this had a positive effect. Patient agrees with plan. Dr. Sosa updated via this note. documented in this encounter Plan of Treatment Upcoming Encounters Date Type Specialty Care Team Description 02/23/2022 Office Visit Hematology and Oncology Gigi Sosa MD [facility] [place] [address] Ebonie Gordon APRN [address] [place] [address] [place] [address] documented as of this encounter Visit Diagnoses Not on filedocumented in this encounter Care Teams Skein Washer Relationship Specialty Start Date End Date Corrie Pacheco APRN PCP - General Family Medicine 04/04/18 [place] [address] documented as of this encounter
--- OUTSIDE RECORDS SUMMARY | 2022-02-23 01:44 | XMS_ITS | Encounter Summary ---
:1960 Author Organization [facility] [place] [address] Care Team Providers Name Role Phone Corrie Pacheco APRN Primary Care Provider Encounter Details Date Type Department Care Team Description 06/26/2018 Clinical Support Hematology/Oncology Ольга Duke neoplasm of at [facility] LORETTA Clinton head of pancreas [address] [place] [phone] Social History Tobacco Use Types Packs/Day [...] encounter Progress Notes Ольга Duke RD - 06/26/2018 10:00 AM EST Pt disconnect was off schedule d/t clinic being closed on Saturday. Will request reschedule. documented in this encounter Plan of Treatment Upcoming Encounters Date Type Specialty Care Team Description 02/23/2022 Office Visit Hematology and Oncology Gigi Sosa MD [facility] [place] [address] Ebonie Gordon RN ANGIOGRAPHY [address] [place] [address] DR MEDICAL ONCOLOGY [place], [place] [address] documented as of this encounter Visit Diagnoses Diagnosis Malignant neoplasm of head of pancreas documented in this encounter Care Teams [employer] Dean Relationship Specialty Start Date End Date Corrie Pacheco APRN PCP - General Family Medicine 04/04/[address] [place], [place] [address] documented as of this encounter
--- OUTSIDE RECORDS SUMMARY | 2022-02-23 01:44 | XMS_ITS | Encounter Summary ---
:1960 Author Organization [facility] [place] [address] Care Team Providers Name Role Phone Corrie Pacheco APRN Primary Care Provider Encounter Details Date Type Department Care Team Description 07/18/2018 Clinical Support Hematology/Oncology Ольга Duke neoplasm of at [facility] LORETTA Clinton head of pancreas [address] [place] [phone] Social History Tobacco Use Types Packs/Day [...] encounter Progress Notes Ольга Duke, RD - 07/18/2018 12:15 PM EDT ONCOLOGY DIETITIAN FOLLOW UP NOTE Diagnosis: [...] - felt hungry and tolerated without issue Botswanan toast last night - two slices Low [...] severe Wt Readings from Last 3 Encounters: 07/18/18 67.4 kg (148 lb 11.2 oz) 07/10/18 68.7 kg (151 lb 6.4 oz) 07/08/18 68.6 kg (151 lb 3.2 oz) 07/08/18: 9.3% decr in 2 weeks; [...] Medications: Reviewed Assessment/Plan: Severe weight decrease in 1 weeks. Reports diarrhea and decr appetite. Diarrhea after CIB w/ Milk. Suggested using almond milk; discussed temporary lactose sensitivity can occur with treatment and diarrhea. Discussed potentially using unflavored protein powder or other protein-rich food sources. He decreased Creon intake to one 24,000 with meals. We again discussed increasing back to two when he eats. Despite decr intake, he may have greater asynchrony of digestion, as evidence by diarrhea, unintentional weightloss, and increased gas. D/t cold sensitivity, suggested hot CIB. Provided samples. Will follow up with Mr. Combs in 1 weeks. Provided him contact information should questions arise prior to that. Ed material provided: -- protein needs and sources -- FASS documented in this encounter Plan of Treatment Upcoming Encounters Date Type Specialty Care Team Description 02/23/2022 Office Visit Hematology and Oncology Gigi Sosa MD [facility] [place] [address] Ebonie Gordon APRN [address] [place] [address] DR MEDICAL ONCOLOGY [place], [place] [id number] documented as of this encounter Visit Diagnoses Diagnosis Malignant neoplasm of head of pancreas documented in this encounter Care Teams Clerk Secretary Relationship Specialty Start Date End Date Corrie Pacheco APRN PCP - General Family Medicine 04/04/[address] [facility], [place] [address] documented as of this encounter
--- OUTSIDE RECORDS SUMMARY | 2022-02-23 01:44 | XMS_ITS | Encounter Summary ---
:1960 Author Organization [facility] [place] [address] Care Team Providers Name Role Phone Corrie Pacheco APRN Primary Care Provider Reason for Visit Reason Comments Follow-up Encounter Details Date Type Department Care Team Description 06/03/2018 Office Visit General Surgery at [facility] Lázaro Collazo MD Postop check [facility] [place] [address] GENERAL SURGERY [phone] [place], [place] [address] (Wo rk) Social History Tobacco [...] Sign Reading Time Taken Comments Blood Pressure 123/61 06/03/2018 3:40 PM EST Pulse 66 06/03/2018 3:40 PM EST Temperature 36.8 ??C (98.3 ??F) 06/03/2018 3:40 PM EST Respiratory Rate 18 06/03/2018 3:40 PM EST Oxygen Saturation 99% 06/03/2018 3:40 PM EST Inhaled Oxygen Concentration - - Weight 71.7 kg (158 lb) 06/03/2018 3:40 PM EST Height - - Body Mass Index 24.02 05/05/2018 6:14 AM EST documented in this encounter Progress Notes Lázaro Collazo MD - 06/03/2018 4:00 PM EST Surgical Oncology Office Note Date: 06/03/2018 Primary physician: Linda Chairez MD ?? Radiation Oncologist: Alden Araujo MD ?? Medical oncologist: Angel Santacruz MD ?? Referring physician: Albert Bender MD Reason for evaluation: First postop visit s/p :R0 whipple (antecolic milton en Y gastrojejunostomy) on05/07/18. Final pathology showed a ypT0N0- complete pathologic response with no tumor cells present. Interval History: Mr. Combs is a 57 year old man from [place], [place]. He presented to [facility] with painless jaundice. His total bilirubin was 6. ?? 03/31/18 CT abdomen and pelvis with oral and IV contrast ([facility]) showed a subtle mass in the HOP [...] ?? 04/04/18 EUS FNA cytopathology per Acc# [id number] was interpreted as Positive for Malignancy. Carcinoma [...] 05/09 POD 4: NGT discontinued. Tolerating clears, STATIONARY ENGINEER SUPERVISOR weaned. ??ELPIDIO amylase 23 05/10 POD 5:1/2 regular diet, ELPIDIO DCd. STATIONARY ENGINEER SUPERVISOR DCd, PO pain meds, Creon started 05/11 POD 6: Tolerating PO; removed 1/2 portion restriction. Anticipate d/c home in next day or so. 05/12 POD 7: Patient cleared for discharge home. Complications: None. Medications: ??? mtuwiv-fpbphent-cqoxyvn (CREON) 24,000-76,000 -120,000 unit Capsule, Delayed Release(E.C.) ??? omeprazole (PRILOSEC) 40 mg Capsule, Delayed Release(E.C.) ??? acetaminophen (TYLENOL) 325 mg Tablet ??? docusate sodium (COLACE) 100 mg Capsule . Laboratory studies: 06/03/2018 WBC 5.4, hemoglobin 11.7 up from 10.3 at discharge. Platelet count 278. Electrolytes are all within normal limits. BUN 22, creatinine 0.82 and glucose 113. Albumin 3.8, total bilirubin 1.1, alkaline phosphatase 75, AST 25, ALT 37 and prealbumin was 25. Pathology: 05/07/18 [facility]# [id number] ?? Surgical Pathology DIAGNOSIS A - Liver, biopsy: Bile duct adenoma. B - Segment 2 liver nodule: Benign liver parenchyma, negative for tumor. C - 4B liver nodule #2: Biliary hamartoma. D - Common hepatic artery lymph node: One benign lymph node, negative for tumor (0/). E - Head of pancreas, duodenum, bile [...] Block(s): ?? N/A Objective: Vitals: Blood pressure 123/61, pulse 66, temperature 36.8 ??C (98.3 ??F), resp. rate 18, weight 71.7kg (158 lb), SpO2 99 %. His weight before surgery was 157 pounds. General: Jaciel looks great. He is very well appearing. He ambulates onto the exam table without anydifficulty. He is accompanied to this visit by his - Demi. Chest: Auscultation on exam of posterior lung del castillo- CTA B Heart: RRR Abdomen: Soft, non distended, nontender. The port sites have healed up nicely. The old ELPIDIO site also has healed up nicely with no signs of infection. Normal bowel sounds. No hernias. Extremities: No peripheral edema and symmetric bilaterally. Assessment and plans: Jaciel comes into the clinic today for his first postop check status post robotic Whipple. He is here today with his Demi. He also underwent evaluation with Kathleen before Isaw him. In brief, he is doing fantastic. He is eating without any nausea or delayed emptying symptoms. He ishaving normal bowel movements. His sleep is good. He is taking omeprazole at night. He is also on Creon with meals. He was discharged without any concern for post pancreatectomy diabetes. We reviewed his pathology report which overall looks quite good. There was no mention of acinar celldifferentiation and the final Whipple specimen so I will add him onto the GI tumor board to discuss and review the pathology in more detail. The tumor was well-differentiated and just over 2 cm. There were unfortunately only 3 lymph nodes in the entire specimen which is hard to believe but all of these were negative. The closest margin was 3 mm--margin negative R0 resection. He is scheduled to see Dr. Sosa on Saturday up at [place]. We discussed how he will benefit from adjuvant chemotherapy and I suspect he will be a candidate for the adjuvant modified FOLFIRINOX regimen which has recently been shown to be superior to postoperative gemcitabine as adjuvant systemic chemotherapy treatment. It is great to see him doing so well. I will see him back at his 6-month post Whipple appointment Silviano. Estela Collazo MD 06/03/2018 4:38 PM documented in this encounter Plan of Treatment Upcoming Encounters Date Type Specialty Care Team Description 02/23/2022 Office Visit Hematology and Oncology Gigi Sosa MD [facility] [place] [address] Ebonie Gordon APRN [address] [place] [address] DR MEDICAL ONCOLOGY [place], [place] [phone] documented as of this encounter Visit Diagnoses Diagnosis Postop check Follow-up examination, following unspeci fied surgery documented in this encounter Care Teams Budget Controller Relationship Specialty Start Date End Date Corrie Pacheco APRN PCP - General Family Medicine 04/04/[address] [place], [place] [address] documented as of this encounter
--- OUTSIDE RECORDS SUMMARY | 2022-02-23 01:44 | XMS_ITS | Encounter Summary ---
:1960 Author Organization [facility] [place] [address] Care Team Providers Name Role Phone Corrie Pacheco APRN Primary Care Provider Reason for Visit Reason Comments Chemotherapy Cycle 3, Day 1 Folfirinox Treatment/Therapy Plan Authorization (Routine) - Closed Specialty Diagnoses / Procedures Referred By Contact Refer red To Contact Hematology and Diagnoses Malignant neoplasm of head of pancreas Gigi Sosa Stj Hem Onc Oncology Procedures TC APREPITANT, 1 MG, INJECTION TC PALONOSETRON HCL, 25MCG, INJECTION (ALOXI) TC OXALIPLATIN, 0.5MG, INJECTION (ELOXATIN) TC IRINOTECAN, 20MG (CAMPTOSAR) TC FLOUROURACIL, 500MG MD Infusion [address] ONCOLOGY [address] [place] [address] Referral ID Status Reason Start Date Expiration Date Visits Requ ested Visits Authorized [id number] Closed 06/06/2018 06/06/2019 30 30 Encounter Details Date Type Department Care Team Description 07/22/2018 Infusion Hematology Oncology at [facility] lignant neoplasm of head [facility] of [address] [phone] Social History Tobacco Use [...] Sign Reading Time Taken Comments Blood Pressure 120/71 07/22/2018 8:14 AM EDT Pulse 71 07/22/2018 8:14 AM EDT Temperature 36.7 ??C (98.1 ??F) 07/22/2018 8:14 AM EDT Respiratory Rate 18 07/22/2018 8:14 AM EDT Oxygen Saturation 100% 07/22/2018 8:14 AM EDT Inhaled Oxygen Concentration - - Weight 68.5 kg (151 lb) 07/22/2018 8:14 AM EDT Height 170.2 cm (5' 7.01) 07/22/2018 8:14 AM EDT corazon vega Body Mass Index 23.64 07/22/2018 8:14 AM EDT documented in this encounter Progress Notes Lui Arteaga RN - 07/22/2018 8:00 AM EDT INFUSION THERAPY ADMINISTRATION NOTES DIAGNOSIS: Pancreatic cancer CYCLE #3: Day 1 REASON FOR VISIT: Folfirinox infusion and initiation of continunous home 5FU infusion via CADD pump provided by [employer] SUBJECTIVE Jaciel offers no complaints. OBJECTIVE LAB DATA: Labs done and reviewed by provider on 07/18/18; WBC 5.76, Hgb 14.8, Hct 41.9, PLT 202k, ANC3.82, BUN 12, Cr 0.77, Bili 0.2 Pre administration: Chemotherapy orders independently verified for [...] treatment well. PLAN Return to clinic on 07/24/18 at ~1100 for disconnect. documented in this encounter Plan of Treatment Upcoming Encounters Date Type Specialty Care Team Description 02/23/2022 Office Visit Hematology and Oncology Gigi Sosa MD [facility] [address] Ebonie Gordon, REGIONAL FLATBED TRUCK DRIVER [address] [place] [address] [place] [address] documented as of this encounter Visit Diagnoses Diagnosis Malignant neoplasm of head of pancreas documented in this encounter Administered Medications Inactive Administered Medications - up to 3 most recent administrations Medication Order MAR Action Action Date Dose Rate Site aprepitant (CINVANTI) injection Given 07/22/2018 8:46 AM EDT 130 mg Emul 130 mg 130 mg, Intravenous, ONCE, 1 dose, On Sat07/22/18 at 0845, Alternative administration of IV push over 2 minutes is a recommendation from the hand spray operator., Routine atropine injection 0.5 mg Given 07/22/2018 11:07 AM EDT 0.5 mg 0.5 mg, Intravenous, ONCE, 1 dose, On Sat07/22/18 at 0845, Administer prior to IRINOtecan, Routine dexamethasone (DECADRON) tablet 10 mg Given 07/22/2018 8:46 AM EDT 10 mg 10 mg, Oral, ONCE, 1 dose, On Sat07/22/18 at 0845, Administer prior to chemotherapy, Routine fluorouracil (ADRUCIL) Given 07/22/2018 1:05 PM 4,440 mg 3 mL/ hr Implanted Port 4,440 mg in sodium chloride EDT 0.9% 138 mL chemo infusion 4,440 mg (2,400 mg/m2/dose ? 1.85 m2 Treatment Plan BSA from Recorded weight), Intravenous, ONCE, 1 dose, On Sat07/22/18 at 1215, Administer over 46 Hours, Warning Vesicant/Irritant Medication To be infused via an ambulatory infusion CADD Legacy Plus pump continuously IV at 3 mL/hr for 46 hours. Pump contains a 46 hour supply and provides a daily dose of 1200 mg/m2/day = 2400 mg/m2 IV over 46 hours with 12 mL of overfill in bag. IRINOtecan (CAMPTOSAR) 280 mg in New Bag 07/22/2018 11:15 AM E DT 280 mg 343 mL/hr dextrose 5% 514 mL chemo infusion 280 mg, Intravenous, ONCE, 1 dose, On Sat07/22/18 at 0945, Administer over 90 Minutes, Dose Ordered = 278 mg (150 mg/m2). Pharmacist rounded dose per procedure. ondansetron (ZOFRAN) injection 8 mg Given 07/22/2018 8:51 AM EDT 8 mg 8 mg, Intravenous, ONCE, 1 dose, On Sat07/22/18 at 0845 OXALIplatin (ELOXATIN) 150 mg in New Bag 07/22/2018 9:20 AM ED T 150 mg 198 mL/hr dextrose 5% 280 mL chemo infusion 150 mg, Intravenous, ONCE, 1 dose, On Sat07/22/18 at 0945, Administer over 85 Minutes, Dose Ordered = 157 mg (85 mg/m2). Pharmacist rounded dose per procedure., Administer first. Compatible with dextrose-containing solution only. , Warning Vesicant/Irritant Medication documented in this encounter Care Teams Physician Compensation Analyst Relationship Specialty Start Date End Date Corrie Pacheco APRN PCP - General Family Medicine 04/04/[address] [place] [address] [place] [address] documented as of this encounter
--- OUTSIDE RECORDS SUMMARY | 2022-02-23 01:44 | XMS_ITS | Encounter Summary ---
:1960 Author Organization [facility] [place] [address] Care Team Providers Name Role Phone Corrie Pacheco APRN Primary Care Provider Encounter Details Date Type Department Care Team Description 06/25/2018 Notes Only [facility] OF CARE [address] [place], [place] [address] [phone] Social History Tobacco Use Types Packs/Day Years [...] encounter Progress Notes Ivory Crews MSW - 06/25/2018 10:07 AM EST Reason for Referral: Brief assessment of social and emotional needs. Met with pt during infusion today. Social Supports: Pt identified his primary support as his Demi of 35 years. Living Situation/Daily Activities/Transportation: Pt and manage their daily chores and activities. He does not expect any issues with transportation. 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 He is on short term disability and has shelter disability should he need it. He has [facility] for insurance. Advance Directives: Pt has completed his advance directive and requested a copy for his record. Utilization of Community Resources: None at this time. Adjustment to Illness/Mental Health Issues: Pt indicated he is coping the best he can and has support from his . Identified Needs: Pt did not identify any specific needs at this time. Referrals: None at this time. Plan: Informed pt of [employer] availability and will follow for support and resources. documented in this encounter Plan of Treatment Upcoming Encounters Date Type Specialty Care Team Description 02/23/2022 Office Visit Hematology and Oncology Gigi Sosa MD [facility] [place] [address] Ebonie Gordon APRN [address] [place] [address] DR MEDICAL ONCOLOGY [facility], [place] [id number] documented as of this encounter Visit Diagnoses Not on filedocumented in this encounter Care Teams Business Applications Specialist Relationship Specialty Start Date End Date Corrie Pacheco APRN PCP - General Family Medicine 04/04/[address] [facility], [place] [id number] documented as of this encounter
--- OUTSIDE RECORDS SUMMARY | 2022-02-23 01:44 | XMS_ITS | Encounter Summary ---
:1960 Author Organization [facility] [place] [address] Care Team Providers Name Role Phone Corrie Pacheco APRN Primary Care Provider Encounter Details Date Type Department Care Team Description 07/14/2018 Telephone Gastroenterology at [facility] [place] [address] Social History Tobacco Use Types Packs/Day [...] this encounter Miscellaneous Notes Telephone Encounter - Tamiko Diehl - 07/14/2018 11:56 AM EDT Caller: Patient Call for: Endo team Reason for call: Pt said he has a missed call from us and is wondering if it is about a procedure? Idon't see a telephone note... Call back urgency: Urgent Ok to leave detailed message? Yes Preferred method of communication: [phone] documented in this encounter Plan of Treatment Upcoming Encounters Date Type Specialty Care Team Description 02/23/2022 Office Visit Hematology and Oncology Gigi Sosa MD [facility] [place] [address] Ebonie Gordon APRN [address] [place] [address] DR MEDICAL ONCOLOGY [place], [place] [address] documented as of this encounter Visit Diagnoses Not on filedocumented in this encounter Care Teams School Principal Relationship Specialty Start Date End Date Corrie Pacheco APRN PCP - General Family Medicine 04/04/[address] [place], [place] [id number] documented as of this encounter
--- OUTSIDE RECORDS SUMMARY | 2022-02-23 01:44 | XMS_ITS | Encounter Summary ---
:1960 Author Organization [facility] [place] [address] Care Team Providers Name Role Phone Corrie Pacheco APRN Primary Care Provider Encounter Details Date Type Department Care Team Description 06/24/2018 Multidisciplinary Care General Surgery at [facility] Committee [facility] MD [address] [facility] [address] [place] GENERAL SURGERY [address] [place] [address] [phone] Social History Tobacco Use Types Packs/Day Years [...] documented as of this encounter Progress Notes Lázaro Collazo MD - 06/24/2018 6:39 AM EST GI - Tumor Board Note Date Presented: 06/24/2018 Presenting Physician: Lázaro Collazo MD Diagnosis/Tumor Site: Pancreatic cancer Synopsis of History/HPI: Mr. Combs is a 57 year old man from [place], [place].?He presented to [facility] with painless jaundice. ??His total bilirubin was 6. ? 03/31/18 CT abdomen and pelvis with oral and IV contrast ([facility]) showed a subtle mass in the HOP withproximal pancreatic and biliary duct obstruction. ??No SMV/portal vein, ROMA or SMA abutment. ?Thegallbladder was markedly distended with biliary dilation. ??No metastases. ?? 04/04/[address] Soto -findings reviewed below: ?? There was a 21 x 21 mm mass in the lateral pancreatic head just proximal to the ampulla. It did notinvolve any blood vessels. The mass was hypoechoic and caused upstream dilitation of both the CBD and PD. Fine??needle aspiration for cytology was performed-??Five passes were made with the 25 gauge needle using a transduodenal approach.?No lymphadenopathy seen. ?? 04/04/[address] [...] placement. ?? 04/04/18 EUS FNA cytopathology per Acc#??[id number]??was interpreted as Positive for Malignancy.??Carcinoma with acinar and ductal differentiation.?The lesional cells are immunoreactive for Trypsin, CK7, CK19, MUC1 (focal) and monoclonal CEA (focal); they are negative for synaptophysin and may-catenin??(negative for nuclear staining). SMAD4 expression is retained in lesional cells. 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 ?? 04/15/18 surgical oncology consult. He lost 17 pounds though had a lost over 50 pounds intentionallyas part of a biggest looser competition that began in at work. He was noted to have persistent jaundice. 04/15/18 CA19-9 0.7 (total bilirubin 26.1) 04/16/18 repeat ERCP where the stent was balloon dilated and a plastic stent was placed within the metal stent. ?? 04/23/18 Laparoscopic exploration showed no metastases- the liver looked dark consistent with recentbiliary obstruction but no surface nodules. ??The gallbladder was somewhat thickened and distended. ??No peritoneal, omental or serosal nodules. ??No ascites. ??No biopsy was performed. ? 05/05/18 robotic whipple. No postop complications. Discharged on POD#7. 06/24/18 his case was presented at the [facility]. The primary tumor was technically resectable on CT imaging- no portal venous or mesenteric arterial involvement. Pathology showed a 2.3 cm well differentiated pancreatic ductal adenocarcinoma. Margins negative. We discussed proceeding with systemic adjuvant chemotherapy- we discussed a plan to proceed with mFOLFIRINOX per Dr. Sosa. The group felt this was reasonable and on re-review there was no evidence for acinar cell differentiation and the tumor was felt to be pancreatic ductal adenocarcinoma. Problem List (Comorbidities): Patient Active Problem List Diagnosis Code ??? Malignant neoplasm of head of pancreas C25.0 ??? Exocrine pancreatic insufficiency K86.81 ??? Pancreatic cancer C25.9 ??? Severe protein-calorie malnutrition E43 Imaging: As above. Pathology: As above. Stage: As above. Clinical Data (Exams, Labs, etc.): As above. Histology: As above. Clinical Trial Availability: As above. Options Discussed: As above. Recommendations: As above. DISCLAIMER: The patient was discussed and the tumor board made recommendations but it is ultimately up to the treatment provider(s) and the patient to determine the patient???s care. Estela Collazo MD This note was created using [employer] voice recognition software. documented in this encounter Plan of Treatment Upcoming Encounters Date Type Specialty Care Team Description 02/23/2022 Office Visit Hematology and Oncology Gigi Sosa MD [facility] [place] [address] Ebonie Gordon APRN [address] [place] [address] DR MEDICAL ONCOLOGY [place], [place] [address] documented as of this encounter Visit Diagnoses Not on filedocumented in this encounter Care Teams Data Analyst Etl Developer Relationship Specialty Start Date End Date Corrie Pacheco APRN PCP - General Family Medicine 04/04/[address] [facility], [place] [id number] documented as of this encounter
--- OUTSIDE RECORDS SUMMARY | 2022-02-23 01:44 | XMS_ITS | Encounter Summary ---
:1960 Author Organization [facility] [place] [address] Care Team Providers Name Role Phone Corrie Pacheco APRN Primary Care Provider Encounter Details Date Type Department Care Team Description 06/19/2018 Clinical Support Hematology/Oncology Ольга Duke neoplasm of at [facility] LORETTA [place] head of pancreas [address] [place] [phone] Social History Tobacco Use Types Packs/Day [...] encounter Progress Notes Ольга Duke, RD - 06/19/2018 2:30 PM EST ONCOLOGY DIETITIAN FOLLOW UP NOTE [...] - felt hungry and tolerated without issue Irish toast last night - two slices Low [...] resources Increasing energy--now walking his dogs Objective: 06/19/18: Gain Wt Readings from Last 3 Encounters: 06/19/18 72.1 kg (159 lb) 06/06/18 71.7 kg (158 lb) 06/03/18 71.7 kg (158 lb) Weight History: UBW: 231 pounds %UBW: [...] Pertinent Labs: Reviewed Medications: Reviewed Assessment/Plan: Weight currently at pre-Whipp weight - he had lost about 20 pounds (unintentional) just prior to his diagnosis. He had intentional weight loss via a challenge at work and lost about 60 pounds (usual weight is 230 pounds). Eating throughout the day--meals and snacks. Appetite has increased, able to ac commodate more volume/meals. Dosing Creon 24: two with meals, 3w/ heavier meals, and one with snacks. Reviewed common side effects with first round of chemotherapy that can impact intake including constipation d/t antiemetics, taste changes, cold sensitivity. Discussed signs and symptoms of MARYJANE-may require dosing up and flexible dosing pending size of meal or snack and dose may change once chemotherapy begins. Will follow up with Mr. Combs in 1-2 weeks. Provided him contact information should questions arise prior to that. documented in this encounter Plan of Treatment Upcoming Encounters Date Type Specialty Care Team Description 02/23/2022 Office Visit Hematology and Oncology Gigi Sosa MD [facility] [place] [address] Ebonie Gordon APRN [address] [place] [address] [place] [address] documented as of this encounter Procedures Procedure Name Priority Date/Time Associated Diagnosis Comme nts LAB SCAN 06/19/2018 12:00 AM Results for this EST procedure are i n the results section . documented in this encounter Results SCAN DOC: LAB (06/19/2018 12:00 AM EST) Narrative 06/19/2018 12:00 AM EST This result has an attachment that is no t available. Ordered by an unspecified provider. Scanning Provider MEDIA MGR SCAN EXT ORDR/RSLT documented in this encounter Visit Diagnoses Diagnosis Malignant neoplasm of head of pancreas documented in this encounter Care Teams Hand Frame Surgical Elastic Knitter Relationship Specialty Start Date End Date Corrie Pacheco APRN PCP - General Family Medicine 04/04/18 [place] [address] documented as of this encounter
--- OUTSIDE RECORDS SUMMARY | 2022-02-23 01:44 | XMS_ITS | Encounter Summary ---
:1960 Author Organization [facility] [place] [address] Care Team Providers Name Role Phone Corrie Pacheco APRN Primary Care Provider Reason for Visit Treatment/Therapy Plan Authorization (Routine) - Closed Specialty Diagnoses / Procedures Referred By Contact Refer red To Contact Hematology and Diagnoses Malignant neoplasm of head of pancreas Gigi Sosa Stj Hem Onc Oncology Procedures TC APREPITANT, 1 MG, INJECTION TC PALONOSETRON HCL, 25MCG, INJECTION (ALOXI) TC OXALIPLATIN, 0.5MG, INJECTION (ELOXATIN) TC IRINOTECAN, 20MG (CAMPTOSAR) TC FLOUROURACIL, 500MG MD Infusion [address] ONCOLOGY [address] [place] [address] Referral ID Status Reason Start Date Expiration Date Visits Requ ested Visits Authorized [id number] Closed 06/06/2018 06/06/2019 30 30 Encounter Details Date Type Department Care Team Description 07/10/2018 Infusion Hematology Oncology at [facility] lignant neoplasm of head [facility] of pancreas [address] [place] [phone] Social History Tobacco Use Types [...] Sign Reading Time Taken Comments Blood Pressure 113/68 07/10/2018 11:16 AM EST Pulse 66 07/10/2018 11:16 AM EST Temperature 36.5 ??C (97.7 ??F) 07/10/2018 11:16 AM EST Respiratory Rate 18 07/10/2018 11:16 AM EST Oxygen Saturation - - Inhaled Oxygen Concentration - - Weight 68.7 kg (151 lb 6.4 oz) 07/10/2018 11:16 AM EST Height 170.2 cm (5' 7.01) 07/10/2018 11:16 AM EST copi ed Body Mass Index 23.71 07/10/2018 11:16 AM EST documented in this encounter Progress Notes Zuly Reyes RN - 07/10/2018 10:00 AM EST INFUSION THERAPY ADMINISTRATION NOTES DIAGNOSIS: 1. Malignant neoplasm of head of pancreas sodium chloride 0.9% infusion dexamethasone (DECADRON) injection 10 mg palonosetron (ALOXI) injection 0.25 mg Home Infusion: Pump Disconnect sodium chloride 0.9 % flush 5-20 mL heparin, porcine 100 unit/mL flush 500 Units REASON FOR VISIT: Discontinue 5FU home infusion and deaccess mediport, hydration & antiemetics SUBJECTIVE Jaciel Combs denies any complaints. OBJECTIVE: VITAL SIGNS: BP 113/68 Pulse 66 Temp 36.5 ??C (97.7 ??F) (Oral) Resp 18 Ht 170.2 cm (5' 7.01) Comment: copied Wt 68.7 kg (151 lb 6.4 oz) BMI 23.71 kg/m?? REACTIONS (DESCRIPTION, TIME, INTERVENTION AND EFFECTIVENESS) none ASSESSMENT Jaciel Combs was awake, alert and he tolerated treatment well. PLAN Return to clinic per routine. documented in this encounter Plan of Treatment Upcoming Encounters Date Type Specialty Care Team Description 02/23/2022 Office Visit Hematology and Oncology Gigi Sosa MD [facility] [place] [address] Ebonie Gordon APRN [address] [place] [address] [place] [address] documented as of this encounter Visit Diagnoses Diagnosis Malignant neoplasm of head of pancreas documented in this encounter Administered Medications Inactive Administered Medications - up to 3 most recent administrations Medication Order MAR Action Action Date Dose Rate Site dexamethasone (DECADRON) injection Given 07/10/2018 11:28 AM EST 10 mg 10 mg 10 mg, Intravenous, ONCE, 1 dose, On Marlen 07/10/18 at 1130 heparin, porcine 100 unit/mL flush 500 Given 07/10/2018 12:40 PM EST 500 Units Units 500 Units, Intravenous, ONCE PRN, Starting on Marlen 3/7/19 at 1113, Until Marlen 07/10/18 at 1449, Line Care, Refer to Intravenous (IV) Procedure: Accessing Implanted Vascular Access Devices (654) procedure and/or Intravenous (IV) Job Aid: Adult Flushing & Catheter Care (6017) job aid for additional information regarding guidelines and administration., Routine palonosetron (ALOXI) injection 0.25 mg Given 07/10/2018 11:32 AM EST 0.25 mg 0.25 mg, Intravenous, ONCE, 1 dose, On Marlen 07/10/18 at 1130, Routine sodium chloride 0.9 % flush 5-20 mL Given 07/10/2018 12:40 PM EST 20 mLs 5-20 mL, Intravenous, EVERY 1 MIN PRN, Starting on Marlen 07/10/18 at 1113, Until Marlen 07/10/18 at 1449, Line Care, Flush pertains to all indwelling lines. Flush per protocol found in the job aid using the link provided on this medication record. Refer to Intravenous (IV) Job Aid: Adult Flushing & Catheter Care (6420) job aid for additional information regarding guidelines and administration., Routine sodium chloride 0.9% infusion New Bag 07/10/2018 11:28 AM EST 1,000 mL/hr 1000 mL/hr 1,000 mL/hr, Intravenous, CONTINUOUS, Starting on Marlen 07/10/18 at 1130, Until Marlen 07/10/18 at 1229 documented in this encounter Care Teams Hazardous Materials Handler Relationship Specialty Start Date End Date Corrie Pacheco APRN PCP - General Family Medicine 04/04/18 [address] [place] [address] documented as of this encounter
--- OUTSIDE RECORDS SUMMARY | 2022-02-23 01:44 | XMS_ITS | Encounter Summary ---
:1960 Author Organization [facility] [place] [address] Care Team Providers Name Role Phone Corrie Pacheco APRN Primary Care Provider Encounter Details Date Type Department Care Team Description 07/14/2018 Telephone Gastroenterology at [facility] [address] Social History Tobacco Use Types Packs/Day Years [...] this encounter Miscellaneous Notes Telephone Encounter - Cecelia Pickett - 07/14/2018 3:07 PM EDT Jaciel Combs [id number] Diagnosis: ERCP 1. Have you ever had a ERCP before? [x] YES [] NO If Yes, Date of Last ERCP:__04/16/18 If yes, did you have any problems with the procedure? [] YES [x] NO Explain: What type of sedation was used: anes 2. Do you take any Blood Thinners? [] YES [x] NO If Yes, type: 3. Do you have a Pacemaker or Defibrillator device? [] YES [x] NO If Yes send inMobile Posseet message to [facility] ENDO DEVICE CHECK 4. Are you a diabetic? [] YES [x] NO If yes, controlled by meds or diet? 5. Do you have any Allergies to Eggs, Latex or Medications? [] YES [x] NO If Yes, what: 6. Do you take any Oral Iron Supplements (Including multi vitamins)? [] YES [x] NO 7. Do you have a history of three or more abdominal surgeries? [] YES [x] NO 8. Have you had a problem with sedation or anesthesia? [] YES [x] NO 9. Do you have a c-pap machine or oxygen tank? [] C-PAP [] Oxygen [x] NO 10. Do you take prescription narcotic pain medications? [] YES [x] NO 11. You must have a responsible constitution party stay at the facility during your procedure and drive you home? [x] YES 12. Is there any other information you would like to give us to aid in scheduling? Height: __5'9 Weight:_150__ BMI: __22.1__ Age:57 y.o. documented in this encounter Plan of Treatment Upcoming Encounters Date Type Specialty Care Team Description 02/23/2022 Office Visit Hematology and Oncology Gigi Sosa MD [facility] [place] [address] Ebonie Gordon APRN [address] [place] [address] DR MEDICAL ONCOLOGY [place], [place] [id number] documented as of this encounter Visit Diagnoses Not on filedocumented in this encounter Care Teams Chlorine Cell Tender Relationship Specialty Start Date End Date Corrie Pacheco APRN PCP - General Family Medicine 04/04/[address] [facility], [place] [id number] documented as of this encounter
--- OUTSIDE RECORDS SUMMARY | 2022-02-23 01:44 | XMS_ITS | Encounter Summary ---
:1960 Author Organization [facility] [place] [address] Care Team Providers Name Role Phone Corrie Pacheco APRN Primary Care Provider Reason for Visit Reason Onset Date Comments Prior Authorization 06/13/2018 [employer] Prior Aut h Encounter Details Date Type Department Care Team Description 06/13/2018 Telephone Hematology/Oncology at [facility], Prior Authorization [facility] RN ([employer] Prior Auth) [address] [place] [phone] Social History Tobacco Use Types Packs/Day Years [...] Telephone Encounter - [facility] RN - 06/13/2018 3:32 PM EST Faxed Prior auth sheet, demographics, beacon orders, and MD note to [phone], Fax confirmed. documented in this encounter Plan of Treatment Upcoming Encounters Date Type Specialty Care Team Description 02/23/2022 Office Visit Hematology and Oncology Gigi Sosa MD [facility] [place] [address] Ebonie Gordon APRN [address] [place] [address] DR MEDICAL ONCOLOGY [place], [place] [address] documented as of this encounter Visit Diagnoses Not on filedocumented in this encounter Care Teams Senior Customer Service Representative Relationship Specialty Start Date End Date Corrie Pacheco APRN PCP - General Family Medicine 04/04/[address] [facility], [place] [id number] documented as of this encounter
--- OUTSIDE RECORDS SUMMARY | 2022-02-23 01:44 | XMS_ITS | Encounter Summary ---
:1960 Author Organization [facility] [place] [address] Care Team Providers Name Role Phone Corrie Pacheco APRN Primary Care Provider Encounter Details Date Type Department Care Team Description 07/18/2018 Office Visit Hematology/Oncology Tricia Garcia Mali gnant neoplasm of at [facility] DAMIEN head of pancreas [address] [place] [address] [place] [address] [place] [address] [place] [address] [phone] (Wo rk) Social History Tobacco Use Types [...] Sign Reading Time Taken Comments Blood Pressure 112/67 07/18/2018 11:56 AM EDT Pulse 81 07/18/2018 11:56 AM EDT Temperature 36.6 ??C (97.9 ??F) 07/18/2018 11:56 AM EDT Respiratory Rate 18 07/18/2018 11:56 AM EDT Oxygen Saturation 100% 07/18/2018 11:56 AM EDT Inhaled Oxygen Concentration - - Weight 67.4 kg (148 lb 11.2 oz) 07/18/2018 11:56 AM EDT Height 170.2 cm (5' 7.01) 07/18/2018 11:56 AM EDT Body Mass Index 23.28 07/18/2018 11:56 AM EDT documented in this encounter Progress Notes Tricia Garcia, BRIQUETTE MOLDER - 07/18/2018 12:00 PM EDT Patient ID: Jaciel Combs is [...] and may- catenin (negative for nuclear staining). [id number] is retained in lesional cells. ??Overall, the [...] On presentation today, he comes to clinic by himself. He is here today for C3 of FOLFIRINOX. 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 Hematological: Negative. Psychiatric/Behavioral: Negative. BP 112/67 (Patient Position: Sitting) Pulse 81 Temp 36.6 ??C (97.9 ??F) (Oral) Resp 18 Ht 170.2 cm (5' 7.01) Wt 67.4 kg (148 lb 11.2 oz) SpO2 100% BMI 23.28 kg/m?? Wt Readings from Last 3 Encounters: 07/18/18 67.4 kg (148 lb 11.2 oz) 07/10/18 68.7 kg (151 lb 6.4 oz) 07/08/18 68.6 kg (151 lb 3.2 oz) Objective: Physical Exam Constitutional: He is [...] His behavior is normal. Vitals reviewed. Labs: 07/18/2018 CBC: WBC 5.76 hemoglobin 14.8 platelets 202 CMP: Sodium 136 potassium 3.7 BUN 12 creatinine 0.77 glucose 112 calcium 8.6 total bili 0.2 AST 29 ALT 51 alk phos 88 total protein 6.6 albumin 2.8 CA 19-9 06/06/18 3 04/15/18 0.7 Assessment and Plan: Mr. Combs is a 57 yo male seen for evaluation and management of pancreatic cancer. He presented in late 03/[address] A CT was done at [facility] and showed intra and extrahepatic biliary ductal dilatation and question of a mass in the duodenum or head of the pancreas. He was referred to GI at [facility] and on 04/04/18 underwent an ERCP with [...] and is here today for evaluation for C#3 which is to start Tues. He tolerated C#2 much better with adjustments in his antiemetics and d3 hydration and additional antiemetics. He is feeling quite well today and although he lost weight he thinks he can work on that for the next visit. I asked the dietitian to see him today. RTC 2wks for re-eval for C#4. Tricia Garcia, MSN, WELDING TECHNICIAN, AOCN Hematology/Oncology Nurse Practitioner [place], [place] [phone] documented in this encounter Plan of Treatment Upcoming Encounters Date Type Specialty Care Team Description 02/23/2022 Office Visit Hematology and Oncology Gigi Sosa MD [facility] [place] [address] Ebonie Gordon APRN [address] [place] [address] DR MEDICAL ONCOLOGY [place], [place] [id number] documented as of this encounter Procedures Procedure Name Priority Date/Time Associated Diagnosis Comme nts LAB SCAN 07/18/2018 12:00 AM Results for this EDT procedure are i n the results section . documented in this encounter Results SCAN DOC: LAB (07/18/2018 12:00 AM EDT) Narrative 07/18/2018 12:00 AM EDT This result has an attachment that is no t available. Ordered by an unspecified provider. Scanning Provider MEDIA MGR SCAN EXT ORDR/RSLT documented in this encounter Visit Diagnoses Diagnosis Malignant neoplasm of head of pancreas documented in this encounter Care Teams Family Dentist Relationship Specialty Start Date End Date Corrie Pacheco APRN PCP - General Family Medicine 04/04/[address] [place] [address] documented as of this encounter
--- OUTSIDE RECORDS SUMMARY | 2022-02-23 01:44 | XMS_ITS | Encounter Summary ---
:1960 Author Organization [facility] [place] [address] Care Team Providers Name Role Phone Corrie Pacheco APRN Primary Care Provider Reason for Visit Reason Comments Other 5FU pump disconnect Treatment/Therapy Plan Authorization (Routine) - Closed Specialty Diagnoses / Procedures Referred By Contact Refer red To Contact Hematology and Diagnoses Malignant neoplasm of head of pancreas Gigi Sosa [facility] Hem Onc Oncology Procedures TC APREPITANT, 1 MG, INJECTION TC PALONOSETRON HCL, 25MCG, INJECTION (ALOXI) TC OXALIPLATIN, 0.5MG, INJECTION (ELOXATIN) TC IRINOTECAN, 20MG (CAMPTOSAR) TC FLOUROURACIL, 500MG MD Infusion [address] ONCOLOGY [address] [place] [address] Referral ID Status Reason Start Date Expiration Date Visits Requ ested Visits Authorized [id number] Closed 06/06/2018 06/06/2019 30 30 Encounter Details Date Type Department Care Team Description 06/27/2018 Infusion Hematology Oncology at [facility] lignant neoplasm of head [facility] of [address] [phone] Social History Tobacco Use [...] encounter Progress Notes Zuly Reyes RN - 06/27/2018 1:30 PM EST INFUSION THERAPY ADMINISTRATION NOTES DIAGNOSIS: 1. Malignant neoplasm of head of pancreas Home Infusion: Pump Disconnect heparin, porcine 100 unit/mL flush 500 Units sodium chloride 0.9 % flush 5-20 mL REASON FOR VISIT: Discontinue 5FU home infusion and deaccess mediport SUBJECTIVE Jaciel Combs denies any complaints. OBJECTIVE: VITAL SIGNS: There were no vitals taken for this visit. REACTIONS (DESCRIPTION, TIME, INTERVENTION AND EFFECTIVENESS) none ASSESSMENT Jaciel Combs was awake, alert and he tolerated treatment well. PLAN Return to clinic per routine. documented in this encounter Plan of Treatment Upcoming Encounters Date Type Specialty Care Team Description 02/23/2022 Office Visit Hematology and Oncology Gigi Sosa MD [facility] [place] [address] Ebonie Gordon APRN [address] [place] [address] DR MEDICAL ONCOLOGY [place], [place] [address] documented as of this encounter Visit Diagnoses Diagnosis Malignant neoplasm of head of pancreas documented in this encounter Administered Medications Inactive Administered Medications - up to 3 most recent administrations Medication Order MAR Action Action Date Dose Rate Site heparin, porcine 100 unit/mL Given 06/27/2018 11:10 AM EST 500 U nits flush 500 Units 500 Units, Intravenous, ONCE PRN, Starting on Sat06/27/18 at 1104, Until Sat06/27/18 at 1421, Line Care, Refer to Intravenous (IV) Procedure: Accessing Implanted Vascular Access Devices (654) procedure and/or Intravenous (IV) Job Aid: Adult Flushing & Catheter Care (9750) job aid for additional information regarding guidelines and administration., Routine sodium chloride 0.9 % flush 5-20 mL Given 06/27/2018 11:10 AM EST 20 mLs 5-20 mL, Intravenous, EVERY 1 MIN PRN, Starting on Sat06/27/18 at 1104, Until Sat06/27/18 at 1421, Line Care, Flush pertains to all indwelling lines. Flush per protocol found in the job aid using the link provided on this medication record. Refer to Intravenous (IV) Job Aid: Adult Flushing & Catheter Care (6563) job aid for additional information regarding guidelines and administration., Routine documented in this encounter Care Teams Gum Cook Relationship Specialty Start Date End Date Corrie Pacheco APRN PCP - General Family Medicine 04/04/[address] [facility], [place] [id number] documented as of this encounter
--- OUTSIDE RECORDS SUMMARY | 2022-02-23 01:45 | XMS_ITS | Encounter Summary ---
:1960 Author Organization [facility] [place] [address] Care Team Providers Name Role Phone Corrie Pacheco APRN Primary Care Provider Reason for Visit Auth/Cert Specialty Diagnoses / Procedures Referred By Contact Refer red To Contact Diagnoses PANCREAS CANCER Procedures PRO UNLISTED PX PNCRS PRO CHOLECYSTOENTER+YASMIN-EN-Y+GASTROENT PRO INSERT TUBE-BOWEL, ENTERAL ALIMENT ROBOTIC PANCREATECTOMY,WHIPPLE, PARTIAL GASTRECTOMY W/ PANCREATOJEJUNOSTOMY @ ROBOTIC YASMIN-EN-Y WITH GASTROENTEROSTOMY (WRVU 24.21) @ROBOTIC JEJUNOSTOMY TUBE PLACEMENT (WRVU 2.62) MODIFIER BERNA ISLAS Referral ID Status Reason Start Date Expiration Date Visits Requ ested Visits Authorized [id number] 1 1 Encounter Details Date Type Department Care Team Description 05/05/2018 Anesthesia Event Main Operating Room [place] [address] [place] [address] [phone] Anesthesia Record Procedure Summary Procedure Name Responsible Anesthesia Start Anesthesia Stop Anesthesiologist Time Time Edil Talamantes MD 05/05/18 0734 05/05/18 1759 PANCREATECTOMY,WHIPPLE, PARTIAL GASTRECTOMY W/ PANCREATOJEJUNOSTOMY (N/A Abdomen) Events Date Time Event Comment 05/05/2018 0708 0734 AN Verify 0734 Start 0736 An Start Data 0753 An Induction 0759 An Intubation 0809 Anesthesia Ready 0836 Procedure Start 0840 Break/Relief In Christine Benz re, FILM SOUND COORDINATOR 0855 Break/Relief Out 1014 ABG Data Arterial Blood G as result: pH 7.39 pCO2 37.7 pO2 231.6 %O2 Sa t 100 FiO2 48 HCO3 22.3 BE -2.7 Hb 11.7 K 4 .15 Glucose 116 Lactate 0.81 1108 Break/Relief In DO WRAY, FILM SOUND COORDINATOR 1140 Break/Relief Out 1402 ABG Data Arterial Blood G as result: pH 7.372 pCO2 39.5 pO2 230 %O2 Sat 100 FiO2 47 HCO3 22.4 BE -2.8 Hb 12.8 K 4.65 G lucose 142 Lactate 1.14 1552 Break/Relief In Mona Castillo ne, FILM SOUND COORDINATOR 1615 Break/Relief Out 1735 Procedure Stop 1744 Extubation/LMA Out 1746 an stop data 1759 Recovery or ICU Handoff Patient care was transferred to the destination unit staff after review of the patient's medica l history, current anesthetic/surgi robinson status and plan, according to the Provider Handoff Checklist. 1759 Stop Name Total Midazolam 2 mg fentaNYL 100 mcg IV Lidocaine 40 mg Propofol 200 mg Rocuronium 220 mg PHENYLephrine 480 mcg ePHEDrine 50 mg Ondansetron 8 mg Neostigmine 4 mg Glycopyrrolate 0.8 mg piperacillin-tazobactam (ZOSYN) 4.5 g vial attach to s odium chloride 0.9% 13.5 g 100 mL Mini-Bag Plus Propofol INF 1,325.74 mg HYDROmorphone 2 mg PHENYLephrine INF 4,190 mcg Sugammadex 200 mg lactated Ringers infusion 1,000 mL 1,000 mL Lactated Ringers 1,300 mL Sodium Chloride 0.9% 500 mL Albumin (human) 5% 250 mL Agents Name O2 Air N2O Sevoflurane (et) Blood No blood administrations on file. Lines, Drains, and Airways Type Details Placement Removal Drain/Device Site 05/05/18; Right; lower; 05/05/18 0000 by abdomen; collapsible Cortney Webster RN closed device; Lázaro Collazo NG/OG Tube nasogastric; 16 Fr; left 05/05/18 1659 by 0850 by nostril; Secured; Daksha Vasquez, confirmed placement by RN surgeon at 65 cm; 05/09/18; 0850 Incision 04/23/18; 1557; abdomen; 04/23/18 1557 by 1715 by laparoscopic punctures Ivy Mi RN Mul ler, Dierdre L (specify); 01/01/22 (LDA cleanup utility RA#[id number]); 1715 (LDA cleanup utility RA#[id number]) Incision 05/05/18; abdomen; 05/05/18 0000 by 01/01/22 171 5 by laparoscopic punctures Nighat Aguilar RN Mul ler, Dierdre L (specify); Multiple trocar sites; 01/01/22 (LDA cleanup utility RA#[id number]); 1715 (LDA cleanup utility RA#[id number]) Urethral Catheter 05/05/18; Abdominal 05/05/18 0000 by 05/07/18 1008 by surgery, Surgery longer Nighat Aguilar RN [facility], than 2 hours; Physician Desmond Ash RN order; indwelling double lumen catheter; latex; 14; inserted at this facility; 1; 5; 10; none; drainage bag to dependent drainage; urethral catheter removed, tubing intact; 05/07/18; 1008 PIV 05/05/18; 0640; cephalic 05/05/18 0640 by Karol, 05/10/18 0921 by vein (lateral side of Abhijeet Melo RN DesileDeb monsivais, arm), left; RN [id number] catheter system; 18 gauge, 1 in length; Irlanda Roberson RN; distraction, intradermal injection, tolerated well, appears comfortable; 1; cephalic vein (lateral side of arm), left; 05/10/18; 0921 Arterial Line 05/05/18; 0730; radial 05/05/18 0730 by 05/05/18 1920 by artery, left; continuous Katharina Brunner, RN U Katharina guardado, blood pressure RN monitoring; no longer indicated, removed per policy, catheter intact; 05/05/18; 192 ETT Mask Ventilation: Easy 05/05/18 0759 by 05/05/18 1744 by (1); ETT Type: Cuffed, Abiodun Rey, Abiodun Pulido, Oral; ETT Size: 8 mm; Mac FILM SOUND COORDINATOR Blade: 4; Notes: Asleep, Pre-O2, Stylette; Attempts: 1; Laryngoscopy Grade: 1; ETT Placement Verified By: Auscultation, Capnometry, Visual; Secured at Teeth: 23 cm; Inserted by: rosalinda PIV 05/05/18; 0803; basilic 05/05/18 0803 by 9 1222 by vein (medial side of Abiodun Rey, ARTEMIO bland, Andrez Womack, RN arm), right; [id number]-[id number] catheter system; 16 gauge; tolerated well; no longer indicated; 05/12/18; 1222 documented in this encounter Social History Tobacco Use Types Packs/Day Years [...] PM EDT documented as of this encounter OR Notes Anesthesia Postprocedure Evaluation - Edil Diaz MD - 05/05/2018 6:21 PM EST [facility] [place] Department of Anesthesiology Post-procedure Note Patient: Jaciel Combs Procedure Summary Date: 05/05/18 Room / Location: [facility] OR [facility] MAIN OR Anesthesia Start: 733 Anesthesia Stop: 1758 Procedures: ROBOTIC PANCREATECTOMY,WHIPPLE, PARTIAL GASTRECTOMY W/ PANCREATOJEJUNOSTOMY (N/A Abdomen) MODIFIER ROBOT,DAVINCI XI (N/A Abdomen) Diagnosis: (PANCREAS CANCER) Surgeon: Lázaro Collazo MD Responsible Provider: Edil Diaz MD Anesthesia Type: general ASA Status: 3 All Anesthesia Providers: Anesthesiologist: Edil Diaz MD FILM SOUND COORDINATOR: Abiodun Rey CRNA Most Recent Vitals: 05/05/18 1815 BP: 124/73 Pulse: 88 Resp: 20 Temp: SpO2: 100% Pain 7 (05/05/181754) Patient Location: PACU/[facility] Level of Consciousness: Conscious but Sleepy Pain Management: Pain Being Addressed PONV: None Cardiovascular Status: At Baseline Respiratory Status: At Baseline Postoperative Fluid Status: Intravascular EUvolemia Possible Anesthetic Complications: NONE apparent at time of evaluation Final Primary Anesthesia Type: General (The anesthetic type performed was the same as planned.) Comments: Anesthesia Preprocedure Evaluation - Edil Diaz MD - 05/04/2018 9:11 PM EST Images from the original note were not included. Pre-Anesthesia Evaluation for: Jaciel Combs a 57 y.o. male. Procedure(s): ROBOTIC PANCREATECTOMY,WHIPPLE, PARTIAL GASTRECTOMY W/ PANCREATOJEJUNOSTOMY @ ROBOTIC YASMIN-EN-Y WITH GASTROENTEROSTOMY (WRVU 24.21) @ROBOTIC JEJUNOSTOMY TUBE PLACEMENT (WRVU 2.62) MODIFIER ROBOT,BERNA DEL CASTILLO Patient Active Problem List Diagnosis ??? Exocrine pancreatic insufficiency ??? Malignant neoplasm of head of pancreas No past medical history on file. Past Surgical History: Procedure Laterality Date ??? PRO ENDOSCOPIC US EXAM, ESOPH N/A 04/04/2018 UPPER EUS- ENDOSCOPIC ULTRASOUND performed by Felipe Soto MD at [facility] ENDOSCOPY ? ? PRO ERCP BILIARY OR PANCREATIC DUCT STENT REMOVAL & EXCHANGE W/DIL&WIRE 04/16/2018 ERCP, W REMOVAL& EXCHANGE STENT, BILIARY/PANCREATIC DUCT performed by aMhamed Bro MD at [facility] ENDOSCOPY ??? PRO ERCP STENT PLACEMENT BILIARY OR PANCREATIC DUCT 04/04/2018 ERCP, W PLCMNT ENDOSCOPIC STENT BILIARY OR PANCREATIC DUCT performed by Felipe Soto MD at [facility] ENDOSCOPY ??? PRO ERCP, SPHINCTEROTOMY N/A 04/04/2018 ERCP W/SPHINCTEROTOMY/PAPILLOTOMY performed by Felipe Soto MD at [facility] ENDOSCOPY ??? PRO ERCP, W/REMOVAL STONE, ZAHIDA/PANCR DUCTS 04/16/2018 ERCP W/REMOVAL CALCULI/DEBRIS FROM BILARY/PANCREATIC DUCT(S) performed by Mahamed Bro MD at [facility] ENDOSCOPY ??? PRO ERCP,DIAGNOSTIC N/A 04/16/2018 ERCP performed by Mahamed Bro MD at [facility] ENDOSCOPY ??? PRO LAP, DIAGNOSTIC ABDOMEN N/A 04/23/2018 LAPAROSCOPY, DIAGNOSTIC, ABDOMEN (WRVU 5.14) performed by Lázaro Collazo MD at [facility] OSC Social History Tobacco Use ??? Smoking status: Never Smoker ??? Smokeless tobacco: Never Used Substance Use Topics ??? Alcohol use: No Frequency: Never Comment: 2-3X/month Social History Substance and Sexual Activity Drug Use No No Known Allergies Medications: MAR and/or home medications have been reviewed. Physical Exam: There were no vitals filed for this visit. There is no height or weight on file to calculate BMI. Airway Assessment: Mallampati: I TM distance: >3 FB Neck ROM: full Cardiovascular Assessment: cardiovascular exam normal Pulmonary Assessment: pulmonary exam normal Dental Assessment: (+) upper dentures and lower dentures Misc Assessment: IV access: Peripheral line Lab Results Component Value Date WBC 9.0 04/15/2018 HGB 13.9 04/15/2018 HCT 38.3 (L) 04/15/2018 MCV 81.1 (L) 04/15/2018 PLATELET 336 04/15/2018 Chemistry Component Value Date/Time NA 137 04/15/2018 1326 K 4.1 04/15/2018 1326 CL 97 (L) 04/15/2018 1326 CO2 26 04/15/2018 1326 BUN 21 (H) 04/15/2018 1326 CREATININE 0.66 (L) 04/15/2018 1326 Component Value Date/Time CALCIUM 9.3 04/15/2018 1326 ALKPHOS 239 (H) 04/23/2018 1533 AST 77 (H) 04/23/2018 1533 ALT 85 (H) 04/23/2018 1533 BILITOT 15.9 (H) 04/23/2018 1533 Anesthesia Plan: ASA 3 general, with a(n) intravenous induction 57yoM with known pancreatic cancer s/f robotic whipple 05/05/[address] Collazo. PMHx reviewed; notable for GERD (on PPI). No adverse anesthetic events in the past; easy airway in past with MAC 3 DL. Patient denies recent coughs/colds/flu symptoms. Anesthetic plan: - GETA - Standard ASA monitors - Adequate PIV access - Patient consented for arterial line placement for hemodynamic monitoring and ease of obtaining frequent labs. Risk of infection, damage to nearby structures (e.g. Nerve damage) and blood vessel damage explained and patient endorsed understanding. Region - Other Informed Consent: Anesthetic plan and risks discussed with patient. Use of blood products discussed with patient who consented to blood products. Plan discussed with FILM SOUND COORDINATOR. PAT Staff Note documented in this encounter Plan of Treatment Upcoming Encounters Date Type Specialty Care Team Description 02/23/2022 Office Visit Hematology and Oncology Gigi Sosa MD [facility] [place] [address] Ebonie Gordon, [employer]ER [address] [place] [address] [place] [address] documented as of this encounter Visit Diagnoses Not on filedocumented in this encounter Administered Medications Inactive Administered Medications - up to 3 most recent administrations Medication Order MAR Action Action Date Dose Rate Site albumin (human) 5% 250 mL New Bag 05/05/2018 3:28 PM EST intravenous solution Intravenous, CONTINUOUS PRN, Starting on Sat05/05/18 at 1528, Until Sat05/05/18 at 1759, Anesthesia Intra-op, Routine ePHEDrine 5 mg/mL multi-dose injection Given 05/05/2018 4:12 PM EST 5 mg PRN, Starting on Sat05/05/18 at 0810, Until Sat05/05/18 at 1759, Anesthesia Intra-op, Routine Given 05/05/2018 2:28 PM EST 5 mg Given 05/05/2018 1:42 PM EST 10 mg fentaNYL 50 mcg/mL multi-dose injection Given 05/05/2018 7:56 AM EST 50 mcg PRN, Starting on Sat05/05/18 at 0753, Until Sat05/05/18 at 1759, Anesthesia Intra-op, Routine Given 05/05/2018 7:53 AM EST 50 mcg glycopyrrolate (ROBINUL) multi-dose inje ction Given 05/05/2018 5:18 PM EST 0.8 mg PRN, Starting on Sat05/05/18 at 1718, Until Sat05/05/18 at 1759, Anesthesia Intra-op, Routine HYDROmorphone (DILAUDID) injection Given 05/05/2018 5:57 PM EST 0.4 mg PRN, Starting on Sat05/05/18 at 0843, Until Sat05/05/18 at 1759, Anesthesia Intra-op, Routine Given 05/05/2018 4:36 PM EST 0.2 mg Given 05/05/2018 3:13 PM EST 0.2 mg lactated Ringers infusion 1,000 mL New Bag 05/05/2018 12:15 PM EST 1,000 mL, at 100 mL/hr, Intravenous, CONTINUOUS, Starting on Sat05/05/18 at 0645, Until Sat05/05/18 at 1820, Day of Surgery (Day of Procedure) New Bag 05/05/2018 7:34 AM EST lactated Ringers infusion New Bag 05/05/2018 2:45 PM EST CONTINUOUS PRN, Starting on Sat05/05/18 at 0809, Until Sat05/05/18 at 1759, Anesthesia Intra-op New Bag 05/05/2018 8:09 AM EST lidocaine (PF) (XYLOCAINE) 100 mg/5 mL (2 %) Given 8 7:53 AM EST 40 mg injection PRN, Starting on Sat05/05/18 at 0753, Until Sat05/05/18 at 1759, Anesthesia Intra-op, Routine midazolam (PF) (VERSED) multi-dose injec tion Given 05/05/2018 7:34 AM EST 2 mg PRN, Starting on Sat05/05/18 at 0734, Until Sat05/05/18 at 1759, Anesthesia Intra-op, Routine neostigmine (BLOXIVERZ) injection Given 05/05/2018 5:18 PM EST 4 mg PRN, Starting on Sat05/05/18 at 1718, Until Sat05/05/18 at 1759, Anesthesia Intra-op, Routine ondansetron (ZOFRAN) injection Given 05/05/2018 5:23 PM EST 4 mg PRN, Starting on Sat05/05/18 at 0822, Until Sat05/05/18 at 1759, Anesthesia Intra-op, Routine Given 05/05/2018 8:22 AM EST 4 mg PHENYLephrine Rate/Dose Change 05/05/2018 5:08 PM 20 mcg/min 15 mL/hr (LAKSHMI-SYNEPHRINE) 20 mg in EST sodium chloride 250 mL (standard ADULT & Pedi greater than 20kg) infusion CONTINUOUS PRN, Starting on Sat05/05/18 at 1436, Until Sat05/05/18 at 1759, Anesthesia Intra-op, Routine Rate/Dose Change 05/05/2018 4:44 PM EST 30 mcg/min 22.5 mL/hr Rate/Dose Change 05/05/2018 4:22 PM EST 20 mcg/min 15 mL/hr PHENYLephrine in NS (PF) (LAKSHMI-SYNEPHRINE) 0.8 Given 2:21 PM EST 80 mcg mg/10 mL (80 mcg/mL) multi-dose injection Syrg PRN, Starting on Sat05/05/18 at 1306, Until Sat05/05/18 at 1759, Anesthesia Intra-op, Routine Given 05/05/2018 2:14 PM EST 80 mcg Given 05/05/2018 1:43 PM EST 80 mcg piperacillin-tazobactam (ZOSYN) 4.5 g vial Bolus 05/05/2018 2:31 PM EST 4.5 g attach to sodium chloride 0.9% 100 mL Mini-Bag Plus 4.5 g, Intravenous, EVERY 8 HOURS, First dose on Sat05/05/18 at 0715, Until Discontinued, Administer over 4 Hours, Warning Vesicant/Irritant Medication Do not administer or Y-site with lactated ringers., Day of Surgery (Day of Procedure), Indication for (Active or Suspected): GI/Intra-abdominal Bolus 05/05/2018 11:35 AM EST 4.5 g New Bag 05/05/2018 8:30 AM EST 4.5 g propofol (DIPRIVAN) 10 mg/mL bolus injection Given 7:53 AM EST 200 mg (Anesthesia) PRN, Starting on Sat05/05/18 at 0753, Until Sat05/05/18 at 1759, Anesthesia Intra-op propofol (DIPRIVAN) Rate/Dose Change 05/05/2018 12:52 20 mcg/kg/min 8 .5 mL/hr infusion PM EST CONTINUOUS PRN, Starting on Sat05/05/18 at 0822, Until Sat05/05/18 at 1759, Anesthesia Intra-op, Routine New Bag 05/05/2018 8:22 AM EST 50 mcg/kg/min 21.4 mL/hr rocuronium (ZEMURON) multi-dose injectio n Given 05/05/2018 4:26 PM EST 10 mg PRN, Starting on Sat05/05/18 at 0753, Until Sat05/05/18 at 1759, Anesthesia Intra-op, Routine Given 05/05/2018 3:32 PM EST 10 mg Given 05/05/2018 3:10 PM EST 10 mg sodium chloride 0.9% infusion New Bag 05/05/2018 2:30 PM EST CONTINUOUS PRN, Starting on Sat05/05/18 at 1138, Until Sat05/05/18 at 1759, Anesthesia Intra-op New Bag 05/05/2018 11:38 AM EST sugammadex (BRIDION) 100 mg/mL injection Given 05/05/2018 5:43 PM EST 200 mg PRN, Starting on Sat05/05/18 at 1743, Until Sat05/05/18 at 1759, Anesthesia Intra-op, Routine documented in this encounter Care Teams Head Setter Relationship Specialty Start Date End Date Corrie Pacheco APRN PCP - General Family Medicine 04/04/18 [place] [address] documented as of this encounter
--- OUTSIDE RECORDS SUMMARY | 2022-02-23 01:45 | XMS_ITS | Encounter Summary ---
:1960 Author Organization [facility] [place] [address] Care Team Providers Name Role Phone Corrie [...] Expiration Date Visits Requ ested Visits Authorized [id number] 1 1 Encounter Details Date Type Department Care Team Description 05/05/2018 - [facility] [place] Krishna Medina Exocrine p ancreatic insufficiency; 05/12/2018 Encounter Garret Camilo MD Malignant neoplasm of head of pancreas [facility] [place], [place] [id number] [phone] Social History Tobacco Use Types Packs/Day Years [...] pay for the very basics like Not jany varela hard 11/02/2020 food, housing, medical care, and [...] Sign Reading Time Taken Comments Blood Pressure 138/82 05/12/2018 7:44 AM EST Pulse 75 05/12/2018 7:44 AM EST Temperature 36.6 ??C (97.9 ??F) 05/12/2018 7:44 AM EST Respiratory Rate 16 05/12/2018 7:44 AM EST Oxygen Saturation 99% 05/12/2018 7:44 AM EST Inhaled Oxygen Concentration - - Weight 71.2 kg (157 lb) 05/05/2018 6:14 AM EST Height 172.7 cm (5' 8) 05/05/2018 6:14 AM EST Body Mass Index 23.87 05/05/2018 6:14 AM EST documented in this encounter Discharge Summaries Katharina Bailey, EDUCATIONAL THERAPIST - 05/12/2018 10:15 AM EST General Surgery Inpatient - Discharge Summary Patient Name: Jaciel Blevins Patient Age: 57 y.o. Birthdate: 1960 Admit date: 05/05/2018 Discharge date: 05/12/18 Admitting Physician: Krishna Collazo MD Primary Diagnosis: Pancreatic cancer Secondary Diagnosis: Active Hospital Problems Diagnosis ??? Pancreatic cancer ??? Severe protein-calorie malnutrition Pt had had voluntary wt loss earlier in the year but has lost 8% body wt in past 3 months. Pt has temporal wasting and > 7.5% wt loss in past 3 months c/w severe protein calorie type malnutrition. Resolved Hospital Problems No resolved problems to display. Active Non-Hospital Problems Diagnosis ??? Exocrine pancreatic insufficiency ??? Malignant neoplasm of head of pancreas HPI: Obtained from Dr. Krishna Collazo's Office Visit Note dated 04/15/18. Reason for evaluation: Recently diagnosed, biopsy proven mixed acinar-adenocarcinoma. ?? History of the present illness: Mr. Blevins is a 57 year old man from [place], [place]. He presented[facility] with painless jaundice. His total bilirubin was 6. ?? 03/31/18 CT abdomen and pelvis with oral and IV contrast ([facility]) showed a subtle mass in the HOP [...] ?? 04/04/18 EUS [facility]NA cytopathology per Acc# [id number] was interpreted as Positive for Malignancy. Carcinoma with acinar and ductal differentiation. The lesional cells are immunoreactive for Trypsin, CK7, CK19, MUC1 (focal) and monoclonal CEA (focal); they are negative for synaptophysin and may-catenin (negative for nuclear staining). SMAD4 expression is retained in lesional cells. 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 ?? Today: He is here today with his Nikki. He says I went to the emergency room because my stools were turning white and my urine was dark and I didn't feel well. 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 See work up above. ?? He was doing a biggest loser weight loss program at Work beginning in of last year. He weighed 231 pounds and intentionally lost a lot of weight - down to 170 pounds- he came in 2nd place. Itwas a low carb, no sugar, no soda coupled with exercise- a lot of walking. It ended in December but since then he maintained his weight but in the last couple of weeks I've lost 17 pounds and is down to 153. ?? He describes a heaviness in his upper abdomen that comes on after a long day at work. ?? He says my bowel were very regular but now my stools are very white and I was having a lot of diarrhea before the procedure. ?? He had a colonoscopy about 15 years ago because he had blood in his stool- he had polyps removed. ?? Operations/Major Procedures: Operations: 05/05/2018 Surgeon(s) and Role: * Krishna Collazo MD - Primary * Mary Ruiz MD - Resident-Surgeon Ranjan: Procedure(s): ROBOTIC PANCREATECTOMY,WHIPPLE, PARTIAL GASTRECTOMY W/ PANCREATOJEJUNOSTOMY MODIFIER ROBOT,DAVINCI XI Operative Findings: There was no evidence of metastatic disease. There was a palpable mass in the head of the pancreas as seen on his prior imaging with no extension into the duodenum or retroperitoneum. The dissection was relatively straightforward. There is no replaced hepatic arterial anatomy. The SMA/uncinate dissection went well. The lateral aspect of the SMA was nicely skeletonized and the IPDAwas individually ligated and divided across metal clips and the harmonic scalpel device. The bile duct measured approximately 15 mm. Both indwelling plastic and the biliary stents were removed with thespecimen. The pancreas parenchyma was soft. The pancreatic duct was approximately 4 mm in diameter. The specimen was retrieved with an Endosac specimen retrieval bag via the laparoscopic 15 mm port site which was extended 1 cm cranially and 1 cm caudally to accommodate the size of the specimen. A 19 Bahraini Nadeem drain was placed ?? Reconstruction was a retro-mesenteric and to side pancreaticojejunostomy (Blumgart type) with an indwelling 4 Bahraini pancreatic duct stent. The bile duct anastomosis was a Blumgart Georgette choledochojejunostomy. The posterior row was a running 4-0V lock stitch in the anterior row were interrupted 5-0 PDS stitches. Intestinal continuity was restored by passing the jejunum as it exited the duodenal spaceand the retro-mesenteric location upper and anterior to the colon where a side to side, stapled (blue load) gastrojejunostomy was fashioned in the retrogastric location. The common gastroenterotomy wasclosed in 2 layers with an inner layer of 3-0V lock [place] stitch and an outer layer of interrupted2-0 silk Lembert stitches. Through arm line in the right lateral location and positioned into Morison's pouch and then passed posterior to the bile duct anastomosis and then anterior to the pancreatic anastomosis. An omental pedicle flap fashioned out of the falciform ligament was isolated and constructed to be used to cover the GDA and right gastric artery stumps in the alba hepatis dissection. ?? Hospital Course: Jaciel Blevins was taken to the operating room where the above procedures were performed. He tolerated the operation well and without complication. He was admitted post-operatively for clinical monitoring and further management. The patient's hospital course was uncomplicated and he was deemed stable for discharge on post-operative day 7. Hospital Course: 05/05 POD 0: Robotic Whipple. Bile duct culture grew Clostridium perfringens in the anaerobic culture and klebsiella pneumonia resistant to ampicillin but otherwise pansensitive. 05/06 POD 1: NGT, Rivers maintained. ELPIDIO amylase 670 05/07 POD 2: Rivers discontinued, voiding spontaneously. ELPIDIO amylase 83 05/08 POD 3: Suppository, small BM, + flatus. ELPIDIO amylase 23. Reglan started. 05/09 POD 4: NGT discontinued. Tolerating clears, DYSLEXIA TEACHER weaned. ELPIDIO amylase 23 05/10 POD 5:1/2 regular diet, ELPIDIO DCd. DYSLEXIA TEACHER DCd, PO pain meds, Creon started 05/11 POD 6: Tolerating PO; removed 1/2 portion restriction. Anticipate d/c home in next day or so. 05/12 POD 7: Patient cleared for discharge home. Important Studies and Lab Data: See below. Pathology: Final Surgical Pathology pending. Microbiology: Body Fluid Culture, Aerobic & Anaerobic Bile (05/05): Moderate Klebsiella pneumoniae and moderate Streptococcus viridans group (two morphologies) on culture. Neutrophils, many GNR's, many GPR's, and moderate GPC's in pairs seen on Gram Stain. Few Clostridium perfringens and rare Prevotella specieson anaerobic culture. Labs: Lab Results Component Value Date WBC 12.9 (H) 05/12/2018 HGB 10.3 (L) 05/12/2018 HCT 29.7 (L) 05/12/2018 MCV 94.9 (H) 05/12/2018 PLATELET 382 (H) 05/12/2018 Lab Results Component Value Date NA 137 05/12/2018 K 3.9 05/12/2018 CL 104 05/12/2018 CO2 22 05/12/2018 BUN 16 05/12/2018 CREATININE 0.78 (L) 05/12/2018 GLUCOSE 109 05/12/2018 CALCIUM 8.2 (L) 05/12/2018 ESTGFR 100 05/12/2018 Lab Results Component Value Date ALT 71 (H) 05/12/2018 AST 41 (H) 05/12/2018 ALKPHOS 112 05/12/2018 BILITOT 3.8 (H) 05/12/2018 BILIDIR >10.0 (H) 04/23/2018 ALBUMIN 2.5 (L) 05/12/2018 PROT 5.8 (L) 05/12/2018 ELPIDIO Fluid Data: ?? Date, POD # ELPIDIO Amylase Level 24 Hour Vol (ml) 1/, POD 1 670 175 1/2, POD 2 83 135 1/3, POD 3 23 275 1/4, POD 4 23 385 1/5, POD 5 13 610 ?? Pending Lab Data at Discharge: Final Surgical Pathology pending. Studies: None. Discharge Exam: Last value Range last 12 hrs Temperature Temp: 36.6 ??C (97.9 ??F) Temp: [36.6 ??C (97.9 ??F)] Heart Rate Heart Rate: 75 Heart Rate: [75] Blood Pressure BP: 138/82 BP: (123-138)/(74-82) Respiratory Rate Resp: 16 Resp: [16] SpO2 SpO2: 99 % SpO2: [99 %-100 %] I/Os: I/O last 3 completed shifts: In: 1950 [P.O.:1470; I.V.:480] Out: 2450 [Urine:2050; Other:400] I/O this shift: In: - Out: 200 [Other:200] Gen: NAD, jaundiced, alert & oriented x3, pain well-controlled. Sitting up in chair by window, present. HEENT: Scleral icterus. Pulm: CTAB, no crackles/wheezes, no SOB. IS encouraged - pt reaching 3750 on IS. Card: RRR, no CP. Abd: Non-distended, soft, mild tympany noted on exam, appropriately tender. + bowel sounds, + flatus, LBM 1/6. Previous RLQ abdominal ELPIDIO drain site with urostomy bag in place; serous output. Wound: Robotic abdominal port sites BUSINESS SUPPORT MANAGER with dermabond; incisions are well- approximated and are without erythema, swelling, or drainage. Ext: no edema, 2+ peripheral pulses Discharge Plans: Discharge to: Home VNA: Yes Name of facility: [facility] Contact information: PHONE: [phone] Discharge Conditions/Prognosis: Stable Discharge Medications: The following medications have been prescribed for you. If you notice any adverse reactions to your medications, please contact your primary care physician immediately or go to the nearest Emergency Department. Your Medications New Medications Dose Details acetaminophen 325 mg Tab Commonly known as: TYLENOL Take 2 tablets by mouth every 6 hours as needed for Pain. 650 mg Refills: 0 docusate sodium 100 mg Cap Commonly known as: COLACE Take 1 capsule by mouth 2 times daily as needed for Constipation. 100 mg Refills: 0 enoxaparin 40 mg/0.4 mL Syrg Commonly known as: LOVENOX Inject 0.4 mLs subcutaneously nightly for 22 days. 40 mg Quantity: 8.8 mL Refills: 0 metoclopramide 10 mg Tab Commonly known as: REGLAN Take 1 tablet by mouth 4 times daily for 14 days. 10 mg Quantity: 56 tablet Refills: 0 oxyCODONE 5 mg Tab Commonly known as: ROXICODONE Take 1 tablet by mouth every 8 hours as needed for Pain (FOR PAIN UNCONTROLLED BY TYLENOL). 5 mg Quantity: 20 tablet Refills: 0 Continued medications with new dosing Dose Details aawuuo-taojeigk-pnxrahg 24,000-76,000 -120,000 unit Cpdr Commonly known as: CREON Take 1-2 capsules by mouth 3 times daily (with meals). With Meals: Take 1-2 capsules by mouth. With Snacks: Take 1 capsule by mouth. What changed: ?? how much to take ?? additional instructions 1-2 capsule Quantity: 270 capsule Refills: 3 Continued medications, unchanged Dose Details omeprazole 40 mg Cpdr Commonly known as: PriLOSEC Take 1 capsule by mouth daily for 360 days. 40 mg Quantity: 90 capsule Refills: 3 Updated Allergies/ADRs: No Known Allergies Scheduled Appointments: Future Appointments Date Time Provider Department Center 05/28/2018 1:00 PM Fariba Calvin Hem [facility]c [facility] 06/03/2018 3:00 PM LAB, [facility] 06/03/2018 4:00 PM Krishna Collazo MD [facility] 06/03/2018 4:00 PM Kathleen Bangura LD [facility] 06/06/2018 1:00 PM Gigi Sosa MD [facility] Outpatient Services/Studies: CBC (with Diff) Standing Status: Future Standing Exp. Date: 12/03/18 Comprehensive metabolic panel (non-fasting) Standing Status: Future Standing Exp. Date: 12/03/18 Prealbumin Standing Status: Future Standing Exp. Date: 12/03/18 Referral to Home Health - at DISCHARGE Order Comments: DOCUMENTATION FOR VNA SERVICES (INCLUDING THOSE PATIENTS WITH MEDICARE COVERAGE REQUIRING HOME VNA SERVICES AND/OR HOSPICE SERVICES) PATIENT'S LOCATION: Jaciel Bassam [place] [address] [facility] [phone] (home) [phone] (cell) Tree Climber's Name: lidia In discussion with the attending physician, it is certified that this patient is under their care and that they, or a Nurse Practitioner,Clinical Nurse specialist or Physician Industrial Engineering Technician who is working directly with them, had a face to face encounter that meets the physician face to face encounter requirements with this patient on 05/12/18 The encounter with the patient was in whole, or in part, for the following medical condition, which is the primary reason for home health care services: Pancreatic Cancer In discussion with the provider, it is certified that, based on their findings, the following services are medically necessary for home health services. To provide the following care/treatments with the clinical findings supporting the need for servicesas follows: HOME CARE ORDERS: RN ORDERS:Assess wound or incision, vital signs, cardiopulmonary status, nutrition, hydration, elimination, meds effectiveness and management; reinforce education re health issues. Urostomy bag to previous right abdominal ELPIDIO drain site. Reinforce Lovenox teaching. HOME HEALTH CARE AGENCY: [facility] PHONE: [phone] FAX: [phone] Start of care: 24-48hrs after discharge Please note that any additional orders needs or changes will need to be obtained from this patient'sPCP: DAMIEN Ramirez DR / [facility] [phone] All VNA agencies which cover the area of patient's residence have been reviewed, either verbally or in writing, and patient/family have chosen the home health care agency noted Question Response Notes Agency name and contact information [facility] Patient location post discharge Home What services are requested Registered Nurse Start date 05/13/2018 Responsible MD post discharge contact info PCP and Dr. Collazo Instructions Given to Patient at Discharge:. An After Visit Summary was printed and given to the patient. Patient Instructions [facility] Department of General Surgery Discharge Instructions CALL YOUR PHYSICIAN'S OFFICE IF: ??? You have a fever greater than 101 degrees Farenheit (38.3C) within one month of your surgery. ? ? You have diarrhea or vomiting for >24 hours, stop having bowel movements and/or passing flatus, have pain with urination. ??? You have worsening pain, not controlled with your pain medication. ??? You develop redness, swelling, or new drainage from your wound. Medications: [x] Pain Control [x] Non-narcotic pain medication - We recommend Tylenol 650mg every 6 hours as needed for pain. NO Ibuprofen / NSAID's due to ulcer / bleeding risk. - Do not take more than 4,000mg (4g) of tylenol in 24hours. [x] Narcotic pain medication - You have been prescribed 20 tablets of 5mg of Oxycodone. This is a narcotic medication that has several side effects/warnings: 1. Constipation: Narcotics can cause severe constipation. Please take BOTH a stool softener and pro-motility/laxative agent whenever taking narcotics, unless otherwise advised. These are over the counter. (Stool Softeners: Colace, Surfak. Laxatives/Stimulants: Miralax, Milk of Magnesia, Senna, Bisacodyl). 2. Altered mental status: Narcotics can make you sleepy and have delayed reactions. Therefore, do not drive or operate any heavy machinery while taking narcotics. 3. Addictive: Narcotics are addictive. Please take as prescribed and wean down/decrease your dose as soon as you can tolerate. 4. Restricted: Narcotics are highly regulated. If you are running out of your prescription and feelyou will need more, plan ahead and call your Physician as these cannot be filled electronically or at night/over the weekend. Again, as your pain decreases, reduce your use of these medications. You donot need to use all of the pills provided. [x] Other Medication(s) - The remainder of your medications are listed in the first section of the After Visit Summary. - You will need to take a Proton Pump Inhibitor (such as Nexium, Protonix, etc.) once daily for at least 1 year after your Whipple surgery to help prevent the development of marginal ulcers. - You are being discharged home on 22 days of Lovenox injections to complete your 28 day post-operative course of anticoagulation. Driving Restrictions: - No driving if you are too sore from surgery to enter or exit your vehicle comfortably, or if you are too sore to easily check your blind spot. No driving while using narcotic pain medications. Shower: - It is ok to shower. You can shower per usual routine and let soapy water run over your incision. Pat incision dry with a clean, dry towel. Do not submerge the wound under water (no swimming or soaking) for at least 6 weeks, or until approved by your surgeon. Diet: [x] You have been cleared to resume your regular diet - You may find it easier to eat smaller, more frequent meals after your surgery. - You should eat your meals sitting upright in a chair to help with digestion after your surgery. - You may benefit from Boost or Ensure shakes once or twice daily while at home to help with your nutrition. This is a great way to get the nutrients your body needs to heal after surgery, without having to take in a lot of volume. - We recommend eating a regular healthy diet (ie; fresh fruits, vegetables and fiber-containing foods will assist in wound healing,) Activity: - It is normal to feel tired after surgery/hospitalization. Be as active as tolerated as this will improve recovery and prevent blood clots. - You should avoid any heavy lifting for 4 weeks after surgery. A gallon of milk is a good estimateof the maximum you should be lifting while your wounds heal. -We recommend taking several slow, short walks each day for the first two weeks, and gradually increase your distance. We recommend at least 4 times a day. Wound/Incision Care: Closure: Your skin incision(s) are closed with: [x] Glue - There are sutures below the skin and the glue is the dressing. There is nothing to remove and the discoloration will go away in time. Infection: Observe for changes and alert the clinic if new/worsening redness or drainage. Things to avoid: Do not use creams, oils, or ointments on the wound. Keep wound open to air if it is not draining. Lines/Drains/Tubes: [x] You are being discharged with a urostomy bag over your previous right abdominal ELPIDIO drain site. - Please monitor and record the output daily. - When the drain output decreases you may switch to daily dressing changes with gauze and tape. Once drainage stops you may leave site open to air. Who to call? If you have concerns or questions: - During the day, it is best to call the [facility] to speak with the Surgery nurses. The number is [phone]. - During the night or weekends call the [facility] folding rules printing machine operator at [phone] and ask to speak to the surgery resident sewer contractor for general surgery. Please note: Your surgeon may not be Director Medical Writing, especially during the night or on weekends, so be ready to describe yourself and your surgery when you call. Follow up appointments: Future Appointments Date Time Provider Department Center 05/28/2018 1:00 PM Fariba Calvin Hem [facility] 06/03/2018 3:00 PM LAB, THREE L Lab [address] [place] [address] [facility] 06/03/2018 4:00 PM Krishna Collazo MD [facility] 06/03/2018 4:00 PM Kathleen Bangura LD [facility] Hem [facility] 06/06/2018 1:00 PM Gigi Sosa MD [facility] [place] [facility] [x] Follow-up appointment with General Surgery has already been scheduled [] A request for a follow-up appointment has been made and you should receive information via phone/mail in the next week. If you do not hear anything, please call the clinic at [phone] to confirmor reschedule. If you need a prior authorization, please call the General Surgery Clinic nurses [phone] for prior authorizations assistance General Instructions None Acute Opioid Prescribing: Opioid PDMP 04/15/2018 [place] PDMP Query Date 05/12/2018 [place] PDMP Query Date 05/12/2018 Opioid Risk Assessment 04/15/2018 ORT Risk Assessment Low (0-3) Acute Opioid Specific Questions 04/15/2018 Date Acute Consent signed 05/12/2018 Considered the risk of opioid misuse, abuse, diversion? Yes Considered options for non-pharmacological modalities and non-opioid therapy? Yes Some recent data might be hidden Jaciel Blevins is being prescribed a prescription opioid for the treatment of acute post-operative pain related to surgery. Jaciel Blevins has been advised to take the smallest dose possible to control their pain and as their pain improves to take smaller doses and increase the time between doses.The patient's risk for opioid misuse, abuse or diversion have been considered. In addition to this medication, non-opioid therapies and non-pharmacologic modalities such as heating pad, ice, and activity modification have been recommended as appropriate for adjunct treatment of their pain. I have discussed the risks and potential side effects of opioid medications, that include but are not limited to, addiction, overdose and , dependence, tolerance, osteoporosis, constipation, sexual dysfunction, hyperalgesia and crime victimization. The patient is also informed of: - the risks of keeping unused medication -counseled on keeping opioids locked -counseled on safe disposal of unused medication -dangers of operating a motor vehicle or heavy machinery -if a renewal is required, they shall return for an in-office follow up for reevaluation. The Acute Opioid Therapy Informed Consent form has been completed and sent to medical records for scanning to chart. Follow-up Recommendations for Providers: - Routine post-operative care. - You will need to take a Proton Pump Inhibitor (such as Nexium, Protonix, etc.) once daily for at least 1 year after your Whipple surgery to help prevent the development of marginal ulcers. - You are being discharged home on 22 days of Lovenox injections to complete your 28 day post-operative course of anticoagulation. - You are being discharged on 2 weeks of Reglan for your gastroparesis / delayed gastric-emptying. CC: Corrie Pacheco APRN Signed: Katharina Bailey APRN [facility] Surgical Oncology Service Team Pager #[phone] 05/12/2018 12:26 PM documented in this encounter Discharge Instructions Patient InstructionsKatharina Bailey APRN - 05/12/2018 10:17 AM EST [facility] Department of General Surgery Discharge Instructions CALL YOUR PHYSICIAN'S OFFICE IF: ??? You have a fever greater than 101 degrees Farenheit (38.3C) within one month of your surgery. ? ? You have diarrhea or vomiting for >24 hours, stop having bowel movements and/or passing flatus, have pain with urination. ??? You have worsening pain, not controlled with your pain medication. ??? You develop redness, swelling, or new drainage from your wound. Medications: [x] Pain Control [x] Non-narcotic pain medication - We recommend Tylenol 650mg every 6 hours as needed for pain. NO Ibuprofen / NSAID's due to ulcer / bleeding risk. - Do not take more than 4,000mg (4g) of tylenol in 24hours. [x] Narcotic pain medication - You have been prescribed 20 tablets of 5mg of Oxycodone. This is a narcotic medication that has several side effects/warnings: 1. Constipation: Narcotics can cause severe constipation. Please take BOTH a stool softener and pro-motility/laxative agent whenever taking narcotics, unless otherwise advised. These are over the counter. (Stool Softeners: Colace, Surfak. Laxatives/Stimulants: Miralax, Milk of Magnesia, Senna, Bisacodyl). 2. Altered mental status: Narcotics can make you sleepy and have delayed reactions. Therefore, do not drive or operate any heavy machinery while taking narcotics. 3. Addictive: Narcotics are addictive. Please take as prescribed and wean down/decrease your dose as soon as you can tolerate. 4. Restricted: Narcotics are highly regulated. If you are running out of your prescription and feelyou will need more, plan ahead and call your Physician as these cannot be filled electronically or at night/over the weekend. Again, as your pain decreases, reduce your use of these medications. You donot need to use all of the pills provided. [x] Other Medication(s) - The remainder of your medications are listed in the first section of the After Visit Summary. - You will need to take a Proton Pump Inhibitor (such as Nexium, Protonix, etc.) once daily for at least 1 year after your Whipple surgery to help prevent the development of marginal ulcers. - You are being discharged home on 22 days of Lovenox injections to complete your 28 day post-operative course of anticoagulation. Driving Restrictions: - No driving if you are too sore from surgery to enter or exit your vehicle comfortably, or if you are too sore to easily check your blind spot. No driving while using narcotic pain medications. Shower: - It is ok to shower. You can shower per usual routine and let soapy water run over your incision. Pat incision dry with a clean, dry towel. Do not submerge the wound under water (no swimming or soaking) for at least 6 weeks, or until approved by your surgeon. Diet: [x] You have been cleared to resume your regular diet - You may find it easier to eat smaller, more frequent meals after your surgery. - You should eat your meals sitting upright in a chair to help with digestion after your surgery. - You may benefit from Boost or Ensure shakes once or twice daily while at home to help with your nutrition. This is a great way to get the nutrients your body needs to heal after surgery, without having to take in a lot of volume. - We recommend eating a regular healthy diet (ie; fresh fruits, vegetables and fiber-containing foods will assist in wound healing,) Activity: - It is normal to feel tired after surgery/hospitalization. Be as active as tolerated as this will improve recovery and prevent blood clots. - You should avoid any heavy lifting for 4 weeks after surgery. A gallon of milk is a good estimateof the maximum you should be lifting while your wounds heal. -We recommend taking several slow, short walks each day for the first two weeks, and gradually increase your distance. We recommend at least 4 times a day. Wound/Incision Care: Closure: Your skin incision(s) are closed with: [x] Glue - There are sutures below the skin and the glue is the dressing. There is nothing to remove and the discoloration will go away in time. Infection: Observe for changes and alert the clinic if new/worsening redness or drainage. Things to avoid: Do not use creams, oils, or ointments on the wound. Keep wound open to air if it is not draining. Lines/Drains/Tubes: [x] You are being discharged with a urostomy bag over your previous right abdominal ELPIDIO drain site. - Please monitor and record the output daily. - When the drain output decreases you may switch to daily dressing changes with gauze and tape. Once drainage stops you may leave site open to air. Who to call? If you have concerns or questions: - During the day, it is best to call the [facility] to speak with the Surgery nurses. The number is [phone]. - During the night or weekends call the [facility] folding rules printing machine operator at [phone] and ask to speak to the surgery resident sewer contractor for general surgery. Please note: Your surgeon may not be Director Medical Writing, especially during the night or on weekends, so be ready to describe yourself and your surgery when you call. Follow up appointments: Future Appointments Date Time Provider Department Center 05/28/2018 1:00 PM Fariba Calvin Hem Onc [facility] 06/03/2018 3:00 PM LAB[facility] 06/03/2018 4:00 PM Krishna Collazo MD [facility] 06/03/2018 4:00 PM Kathleen Bangura LD [facility] 06/06/2018 1:00 PM Gigi Sosa MD [facility] [place] [facility] [x] Follow-up appointment with General Surgery has already been scheduled [] A request for a follow-up appointment has been made and you should receive information via phone/mail in the next week. If you do not hear anything, please call the clinic at [phone] to confirmor reschedule. If you need a prior authorization, please call the General Surgery Clinic nurses [phone] for prior authorizations assistance AttachmentsThe following attachments cannot be sent through Care Everywhere. ENOXAPARIN (LOVENOX) (CHINESE)documented in this encounter Medications at Time of Discharge Medication Sig Dispensed Refills Start Date End Date metoclopramide Take 1 tablet by 56 tablet 0 05/12/201805/07 (REGLAN) 10 mg Tablet mouth 4 times daily for 14 days. acetaminophen Take 2 tablets by 0 05/12/201805/06 (TYLENOL) 325 mg mouth every 6 hours Tablet as needed for Pain. docusate sodium Take 1 capsule by 0 05/12/2018 (COLACE) 100 mg mouth 2 times daily Capsule as needed for Constipation. ajnkag-tajpglzd-vxyetr Take 1-2 capsules by 270 capsule 3 05/27/2018 e (CREON) mouth 3 times daily 24,000-76,000 -120,000 (with meals). With unit Capsule, Delayed Meals: Take 1-2 Release(E.C.)Indicatio capsules by mouth. ns: Exocrine With Snacks: Take 1 pancreatic capsule by mouth. insufficiency oxyCODONE (ROXICODONE) Take 1 tablet by 20 tablet 0 019 06/03/2018 5 mg Tablet mouth every 8 hours as needed for Pain (FOR PAIN UNCONTROLLED BY TYLENOL). enoxaparin (LOVENOX) Inject 0.4 mLs 8.8 mL 0 05/12/2018 06/03/2018 40 mg/0.4 mL Syringe subcutaneously nightly for 22 days. omeprazole (PRILOSEC) Take 1 capsule by 90 capsule 3 018 05/19/2018 40 mg Capsule, Delayed mouth daily for 360 Release(E.C.)Indicatio days. ns: Exocrine pancreatic insufficiency documented as of this encounter Progress Notes Jacque Piper RN - 05/12/2018 1:44 PM EST Office of Care Management (OCM)-Order Dispatcher Chief discharge planning Order Dispatcher Chief: Jacque Piper RN Service: Reviewed medical record and in rounds with floor RN, CM, and medical team. Jaciel Blevins is ready for discharge to home . Met with the patient who is comfortable with the plan. Transportation provided by Order Dispatcher Chief Discharge Note: Patient will be discharged on 05/12 Discussed plan for discharge with primary team, patient and/or patient's family. Plan for discharge: Home care services for SN provided by [facility]. PHONE: [phone] FAX: [phone] Patient is medically ready for discharge to home with services outlined above. Order Dispatcher Chief to follow until discharge if any new needs arise. MD notified of plan. Charge Nurse updated. Resource Specialists updated. Jacque Piper RN Case Management pgr [phone] Andrez Wong RN - 05/12/2018 12:56 PM EST AVS reviewed with patient, all questions answered/ all belongings with patient. Pt. Declined wheelchair for d/c Pia Marie RD - 05/12/2018 11:03 AM EST Nutrition Initial Note Jaciel Blevins is a 57 y.o. male Reason for intervention: Diagnosis Nutrition Recommendations: Enc p.o. Enc out-pt RD f/u ( has already met w/ Stella Bangura RD LD at [facility]) Patient Active Problem List Diagnosis Code ??? Malignant neoplasm of head of pancreas C25.0 ??? Exocrine pancreatic insufficiency K86.81 ??? Pancreatic cancer C25.9 History reviewed. No pertinent past medical history. Active Orders Diet Regular diet Frequency: Effective Now Number of Occurrences: Until Specified Admit Weight: 71.21 kg Estimated body mass index is 23.87 kg/m?? as calculated from the following: Height as of this encounter: 172.7 cm (5' 8). Weight as of this encounter: 71.2 kg (157 lb). [place] Body Weight (IBW): [place] body weight: 68.4 kg (150 lb 12.7 oz) Adjusted ideal body weight: 69.5 kg (153 lb 4.4 oz) UBW: 77 kg Estimated needs: Calories:1800+ Protein: 100 grams Today's medications: Creon 24 w/ meals, Creon 6 w/ snacks Lab Results Component Value Date NA 137 05/12/2018 K 3.9 05/12/2018 CL 104 05/12/2018 CO2 22 05/12/2018 BUN 16 05/12/2018 CREATININE 0.78 (L) 05/12/2018 GLUCOSE 109 05/12/2018 MAGNESIUM 0.83 05/12/2018 CALCIUM 8.2 (L) 05/12/2018 PHOS 2.6 05/12/2018 AST 41 (H) 05/12/2018 ALT 71 (H) 05/12/2018 ALKPHOS 112 05/12/2018 BILITOT 3.8 (H) 05/12/2018 BILIDIR >10.0 (H) 04/23/2018 Last Bowel Movement: 05/10/18 Assessment: Pt seen 2/2 s/p Whipple. Pt seen at b-fast demonstrating excellent appetite. Pt had had voluntary wt loss earlier in the year but has lost 8% body wt in past 3 months. Pt has temporal wasting and > 7.5% wt loss in past 3 months c/w severe protein calorie type malnutrition. Pt has good understanding of nutrition and is motivated to gain wt. Eating Hints Before , During and after Cancer Treatment Booklet provided w/ means of contact. Pt aware of RD services at [facility] and will ask for follow up if he has difficulty w/ wt gain. Discharge planning underway JACQUELIN DUMAS Beeper #: [id number] Dorian Mtz - 05/11/2018 2:18 PM EST Narrative:Visited to introduce and assess acceptance of [employer] services. Pt was awake, alert, oriented and in bed and welcoming to visit. Assessment:Patient coping positively with stresses of illness/hospitalization at this time. Pt says that he is hoping to get better and go home and his family member was there. Pt seems to be thankful for all medical staff for their help and support. Pt asked for prayers and blessings. Outcome: provided emotional, spiritual support and encouraging presence. [employer] services accepted.Conversation to build trusting relationship.Provided prayer.Provided pastoral presence. Follow up:yes Time: 20 mins Abhijeet Wright MD - 05/11/2018 8:23 AM EST Surgical Oncology Inpatient Progress Note ?? ID: Jaciel Blevins is a 57 y.o. male who presented with painless jaundice and a mass in the HOP now 6Days Post-Op robotic whipple Hospital Course: 05/05 POD 0: Robotic Whipple. Bile duct culture grew Clostridium perfringens in the anaerobic culture and klebsiella pneumonia resistant to ampicillin but otherwise pansensitive. 01 POD 1: NGT, Rivers maintained. amylase 670 05/07 POD 2: Rivers discontinued, voiding spontaneously. amylase 83 05/08 POD 3: Suppository, small BM, + flatus. amylase 23 05/09 POD 4: NGT discontinued. Tolerating clears, DYSLEXIA TEACHER weaned. amylase 23 05/10 POD 5:1/2 regular diet, ELPIDIO DCd. DYSLEXIA TEACHER DCd, PO pain meds, Creon started 24 Hour Events/S: Did well yesterday. He was advanced to a regular diet. Tolerated it well during the day, but felt a little bloated in the evening. His. ELPIDIO drain was removed O: Last value Range last 24hrs Temperature Temp: 36.8 ??C (98.2 ??F) Temp: [36.6 ??C (97.9 ??F)-36.8 ??C (98.2 ??F)] Heart Rate Heart Rate: 62 Heart Rate: [62-79] Blood Pressure BP: 126/81 BP: (121-138)/(79-85) Respiratory Rate Resp: 14 Resp: [14-20] SpO2 SpO2: 100 % SpO2: [99 %-100 %] 05/10 0701 - 05/11 0700 In: 2522 [P.O.:1635; I.V.:887] Out: 1745 [Urine:1585] ELPIDIO: 610 We will continue the IV Zosyn until postoperative day #7 for the PE: General: AOx3, NAD, mild jaundic Cardiopulm: RRR, no mumurs, CTAB no w/r/r Abd: soft, nontender, non-distended. Robotic sites closed with glue, c/d/i. Skin: warm, dry Ext: no c/c/e, cap refill <2sec Neuro: CN II-XII intact. Non-focal, moving all four extremities spontaneously Labs: Recent Labs 05/11/18 0203 05/10/18 0143 05/09/18 0143 WBC 14.0* 9.9* 11.7* HGB 10.2* 9.9* 9.4* HCT 29.3* 28.5* 27.1* PLATELET 342 325 259 Recent Labs 05/11/18 0203 05/10/18 0143 05/09/18 0143 NA 136 135 138 K 4.0 3.6 3.6 CL 104 103 105 CO2 21* 21* 24 BUN 14 11 10 CREATININE 0.75* 0.65* 0.63* GLUCOSE 106 112 107 CALCIUM 8.2* 8.2* 8.2* MAGNESIUM 0.80 0.79 0.79 PHOS 3.9 3.6 2.6 Imaging: No results found. A/P: Jaciel Blevins is a 57 y.o. 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 Doing very well. Yesterday his diet was advanced to 1/2 regular, today will remove the volume restriction. His DYSLEXIA TEACHER was also DCd and he is tolerating PO pain meds very well. His zosyn will timeout tomorrow. If he continues to do well, anticipating DC tomorrow vs early this upcoming week. MD Estela Winn MD 05/11/2018 8:23 AM Krishna Collazo MD - 05/10/2018 8:33 AM EST Surgical Oncology Inpatient Progress Note ?? ID: Jaciel Blevins is a 57 y.o. male who presented with painless jaundice and a mass in the HOP now 5Days Post-Op robotic whipple Hospital Course: 05/05 POD 0: Robotic Whipple. Bile duct culture grew Clostridium perfringens in the anaerobic culture and klebsiella pneumonia resistant to ampicillin but otherwise pansensitive. 05/06 POD 1: NGT, Rivers maintained. ELPIDIO amylase 670 05/07 POD 2: Rivers discontinued, voiding spontaneously. ELPIDIO amylase 83 05/08 POD 3: Suppository, small BM, + flatus. ELPIDIO amylase 23 05/09 POD 4: NGT discontinued. Tolerating clears, DYSLEXIA TEACHER weaned. ELPIDIO amylase 23 24 Hour Events/S: NGT was pulled in the morning yesterday. He was able to tolerate a clear liquid diet. Has been having bowel movements. Pain is well controlled O: Last value Range last 24hrs Temperature Temp: 36.4 ??C (97.5 ??F) Temp: [36.3 ??C (97.3 ??F)-36.9 ??C (98.4 ??F)] Heart Rate Heart Rate: 54 Heart Rate: [53-65] Blood Pressure BP: 124/79 BP: (124-139)/(75-83) Respiratory Rate Resp: 15 Resp: [15-18] SpO2 SpO2: 100 % SpO2: [99 %-100 %] 05/09 700 - 05/10 07 In: 2064 [P.O.:615; I.V.:1449] Out: 3335 [Urine:2675] ELPIDIO: 610 We will continue the IV Zosyn until postoperative day #7 for the PE: General: AOx3, NAD, mild jaundic Cardiopulm: RRR, no mumurs, CTAB no w/r/r Abd: soft, nontender, non-distended. Robotic sites closed with glue, c/d/i. Drain with serosanguinous output, Skin: warm, dry Ext: no c/c/e, cap refill <2sec Neuro: CN II-XII intact. Non-focal, moving all four extremities spontaneously Labs: Recent Labs 05/10/1814205/09/1814205/08/18 0114 WBC 9.9* 11.7* 14.8* HGB 9.9* 9.4* 9.1* HCT 28.5* 27.1* 27.3* PLATELET 325 259 244 Recent Labs 05/10/1814205/09/1814205/08/18 0114 NA 135 138 138 K 3.6 3.6 3.7 CL 103 105 103 CO2 21* 24 26 BUN 11 10 9* CREATININE 0.65* 0.63* 0.63* GLUCOSE 112 107 106 CALCIUM 8.2* 8.2* 8.1* MAGNESIUM 0.79 0.79 0.79 PHOS 3.6 2.6 2.0* ELPIDIO amylase: 13 Imaging: No results found. A/P: Jaciel Blevins is a 57 y.o. male with acinar-adenocarcinoma of the pancrease now 5 Days Post-Op s/p robotic whipple. He is progressing very well. His NGT was clamped and removed yesterday. He has had return of bowel function.He tolerated a clear liquid diet without nausea or vomiting. He can have a 1/2 portion regular diet today. Now that he is tolerating PO, will DC the DYSLEXIA TEACHER and start an oral pain regimen. ELPIDIO amylase is down to 13 this morning. This is very reassuring that there is no leak. Will remove the drain and cover with a urostomy bag today. Overall, he is doing excellent and we will continue to normalize him. Abhijeet Rojas MD Surgery Attending Addendum I have seen and examined Jaciel this am. I have reviewed the laboratory data.?My exam is unchanged from Dr. Rojas's note above. The assessment and plan were formulated in discussion with me and I agree with them as documented. He had a good morning. He was able to eat some food-his diet was advanced to half regular as above. No concerns on exam. No evidence of pancreatic leak. I removed the ELPIDIO today and placed a urostomy bag over the ELPIDIO site asit has a lot of serous output but ELPIDIO amylase was quite low- 13 (serum amylase 37) as above. We will go ahead and DC the every 4 hour Accu-Cheks as he has no evidence of post pancreatectomy diabetes. Will start pancreatic enzyme replacement-Creon 24 with meals and Creon 6 with snacks. We will continue the Zosyn until postoperative day #7 per protocol for bacterobilia-Klebsiella pneumonia resistant to ampicillin but otherwise pansensitive and Clostridium perfringens in the anaerobic culture of the intraoperative bile cultures. Great progress-DC planning for Saturday. Estela Collazo MD 05/10/2018 11:22 AM Abhijeet Rojas MD - 05/09/2018 5:09 PM EST Surgical Oncology Inpatient Progress Note ?? ID: Jaciel Blevins is a 57 y.o. male who presented with painless jaundice and a mass in the HOP now 4Days Post-Op robotic [facility] Course: 05/05 POD 0: Robotic ipple 05/06 POD 1: NGT, Rivers maintained 05/07 POD 2: Rivers discontinued, voiding spontaneously 05/08 POD 3: Suppository, small BM, + flatus 24 Hour Events/S: NGT was clamped and he tolerated w/o nausea or vomiting. He is having bowel movements and passing flatus. O: Last value Range last 24hrs Temperature Temp: 36.7 ??C (98.1 ??F) Temp: [36.7 ??C (98.1 ??F)-37.1 ??C (98.8 ??F)] Heart Rate Heart Rate: 57 Heart Rate: [56-64] Blood Pressure BP: 139/83 BP: (123-139)/(68-83) Respiratory Rate Resp: 16 Resp: [12-18] SpO2 SpO2: 100 % SpO2: [100 %] 05/08 700 - 05/09 07 In: 2517 [P.O.:240; I.V.:2076] Out: 4235 [Urine:2700] N ELPIDIO: 325 PE: General: AOx3, NAD, mild jaundic Cardiopulm: RRR, no mumurs, CTAB no w/r/r Abd: soft, nontender, non-distended. Robotic sites closed with glue, c/d/i. Drain with serosanguinous output, Skin: warm, dry Ext: no c/c/e, cap refill <2sec Neuro: CN II-XII intact. Non-focal, moving all four extremities spontaneously Labs: Recent Labs 05/09/18 0143 05/08/18 0114 05/07/18 0136 WBC 11.7* 14.8* 18.8* HGB 9.4* 9.1* 9.8* HCT 27.1* 27.3* 29.5* PLATELET 259 244 242 Recent Labs 05/09/18 0143 05/08/18 0114 05/07/18 013 NA 138 138 135 K 3.6 3.7 4.4 CL 105 103 101 CO2 24 26 25 BUN 10 9* 12 CREATININE 0.63* 0.63* 0.79* GLUCOSE 107 106 135 CALCIUM 8.2* 8.1* 7.8* MAGNESIUM 0.79 0.79 0.84 PHOS 2.6 2.0* 1.5* Imaging: No results found. A/P: Jaciel Blevins is a 57 y.o. male with acinar-adenocarcinoma of the pancrease now 4 Days Post-Op s/p robotic whipple. NGT was clamped and removed this morning. He will be kept sips and chips today. He is doing very well. Will start to wean off his DYSLEXIA TEACHER today and hopefully make the transition to PO meds when he is taking more of a diet. Abhijeet Rojas MD Javier Parmar - 05/09/2018 3:34 PM EST Nutrition Services - NPO note Jaciel Blevins : 1960 AGE: 57 y.o. Patient Active Problem List Diagnosis Date Noted ??? Hospital-Pancreatic cancer 05/05/2018 ??? Exocrine pancreatic insufficiency 04/15/2018 Chronic ??? Malignant neoplasm of head of pancreas 04/14/2018 Ht Readings from Last 3 Encounters: 05/05/18 172.7 cm (5' 8) 04/23/18 172.7 cm (5' 8) 04/15/18 172.7 cm (5' 8) Wt Readings from Last 3 Encounters: 05/05/18 71.2 kg (157 lb) 04/23/18 69.4 kg (153 lb) 04/15/18 71.2 kg (157 lb) Body mass index is 23.87 kg/m??. Labs: Results for JACIEL BLEVINS ( ) as of 05/09/2018 15:34 Ref. Range 05/09/2018 00:12 05/09/2018 01:43 05/09/2018 04:14 05/09/2018 07:33 05/09/2018 11:55 Sodium Latest Ref Range: 135 - 145 mmol/L 138 Potassium Latest Ref Range: 3.5 - 5.0 mmol/L 3.6 BUN Latest Ref Range: 10 - 20 mg/dL 10 Creatinine Latest Ref Range: 0.80 - 1.50 mg/dL 0.63 (L) eGFR Latest Ref Range: >=60 mL/min/1.73 m?? 109 eGFR Latest Ref Range: >=60 mL/min/1.73 m?? 126 Glucose Lvl Latest Ref Range: 65 - 199 mg/dL 107 POC Glucose Latest Ref Range: 65 - 199 mg/dL 109 105 100 97 Calcium Latest Ref Range: 8.5 - 10.5 mg/dL 8.2 (L) Magnesium Latest Ref Range: 0.69 - 1.07 mmol/L 0.79 Phosphorus Latest Ref Range: 2.5 - 4.5 mg/dL 2.6 Total Protein Latest Ref Range: 6.1 - 8.0 gm/dL 5.4 (L) Albumin Latest Ref Range: 3.2 - 5.2 gm/dL 2.2 (L) Total Bilirubin Latest Ref Range: 0.2 - 1.3 mg/dL 5.2 (H) Alk Phos Latest Ref Range: 40 - 120 unit/L 94 AST Latest Ref Range: 0 - 39 unit/L 47 (H) ALT Latest Ref Range: 0 - 55 unit/L 107 (H) Amylase Latest Ref Range: 28 - 100 unit/L 44 Patient has been NPO and/or on clear liquids for 5 days. If diet can not be advanced within 24 hours, please consider alternative means of nutrition support. LUIS MIGUEL Cisneros Abhijeet Rojas MD - 05/08/2018 12:03 PM EST Surgical Oncology Inpatient Progress Note ?? ID: Jaciel Blevins is a 57 y.o. male who presented with painless jaundice and a mass in the HOP now 3Days Post-Op [facility] Course: 05/05 [facility] 1: NGT, Rivers maintained 05/07 POD 2: Rivers discontinued, voiding spontaneously 24 Hour Events/S: Rivers taken out yesterday, voiding spontaneously He was out of bed walking around the unit on his own. Has abdominal pain with movement but otherwiseit is under control. He says that he is barely using his DYSLEXIA TEACHER. Using his IS regularly. Pulling around 1500 O: Last value Range last 24hrs Temperature Temp: 36.9 ??C (98.4 ??F) Temp: [36.6 ??C (97.9 ??F)-37.1 ??C (98.8 ??F)] Heart Rate Heart Rate: 67 Heart Rate: [60-69] Blood Pressure BP: 132/84 BP: (121-149)/(68-84) Respiratory Rate Resp: 14 Resp: [12-16] SpO2 SpO2: 100 % SpO2: [95 %-100 %] 05/07 07 - 05/08 0700 In: 2870 [P.O.:610; I.V.:1850] Out: 4450 [Urine:1975] N.2 ELPIDIO: 245 PE: General: AOx3, NAD, mild jaundic Cardiopulm: RRR, no mumurs, CTAB no w/r/r Abd: soft, nontender, non-distended. Robotic sites closed with glue, c/d/i. Drain with serosanguinous output, Skin: warm, dry Ext: no c/c/e, cap refill <2sec Neuro: CN II-XII intact. Non-focal, moving all four extremities spontaneously Labs: Recent Labs 05/08/1811305/07/1813505/06/1812305/05/18 1832 WBC 14.8* 18.8* 21.5* 21.7* HGB 9.1* 9.8* 11.0* 11.5* HCT 27.3* 29.5* 33.3* 34.1* PLATELET 244 242 292 296 Recent Labs 05/08/1811305/07/18 0136 05/06/1812305/05/18 1832 NA 138 135 139 136 K 3.7 4.4 4.5 3.9 CL 103 101 104 102 CO2 26 25 25 21* BUN 9* 12 15 18 CREATININE 0.63* 0.79* 0.91 0.86 GLUCOSE 106 135 125 101 CALCIUM 8.1* 7.8* 8.2* 8.3* MAGNESIUM 0.79 0.84 0.68* -- PHOS 2.0* 1.5* 5.2* -- ELPIDIO Amylase 84 (670) Imaging: No results found. A/P: Jaciel Blevins is a 57 y.o. male with acinar-adenocarcinoma of the pancrease now 3 Days Post-Op s/p robotic whipple. Jaciel is doing great. NG output was high overnight so it will stay for today. It is okay for him tohave sips and chips. We'll start him on reglan to aid with any dysmotility he may have and give him a suppository. He is progressing well and as expected. Abhijeet Rojas MD Bob, Abhijeet Cueva MD - 05/07/2018 9:59 AM EST Surgical Oncology Inpatient Progress Note ?? ID: Jaciel Blevins is a 57 y.o. male who presented with painless jaundice and a mass in the HOP now 2Days Post-Op [facility] Course: 05/05 POD 0: Robotic [place] 05/06 POD 1: NGT, Dixon maintained 24 Hour Events/S: - Doing well. Has some abdominal pain, but overall it is very well controlled with his DYSLEXIA TEACHER - NGT is in place and he has minimal nausea. Output is bilious O: Last value Range last 24hrs Temperature Temp: 36.9 ??C (98.4 ??F) Temp: [36.7 ??C (98.1 ??F)-37.4 ??C (99.3 ??F)] Heart Rate Heart Rate: 76 Heart Rate: [75-90] Blood Pressure BP: 117/72 BP: (98-117)/(58-72) Respiratory Rate Resp: 16 Resp: [16] SpO2 SpO2: 95 % SpO2: [95 %-98 %] 05/06 0701 - 05/07 0700 In: 2658.4 [P.O.:400; I.V.:1945.3] Out: 2560 [Urine:1475] N ELPIDIO: 135 PE: General: AOx3, NAD, mild jaundic Cardiopulm: RRR, no mumurs, CTAB no w/r/r Abd: soft, nontender, non-distended. Robotic sites closed with glue, c/d/i. Drain with serosanguinous output, frothy with shaking Skin: warm, dry Ext: no c/c/e, cap refill <2sec Neuro: CN II-XII intact. Non-focal, moving all four extremities spontaneously Labs: Recent Labs 05/07/18 0136 05/06/18 0124 05/05/18 1832 WBC 18.8* 21.5* 21.7* HGB 9.8* 11.0* 11.5* HCT 29.5* 33.3* 34.1* PLATELET 242 292 296 Recent Labs 05/07/18 0136 05/06/18 0124 05/05/18 1832 NA 135 139 136 K 4.4 4.5 3.9 CL 101 104 102 CO2 25 25 21* BUN 12 15 18 CREATININE 0.79* 0.91 0.86 GLUCOSE 135 125 101 CALCIUM 7.8* 8.2* 8.3* MAGNESIUM 0.84 0.68* -- PHOS 1.5* 5.2* -- ELPIDIO Amylase 84 (670) Imaging: No results found. A/P: Jaciel Blevins is a 57 y.o. male with acinar-adenocarcinoma of the pancrease now 2 Days Post-Op s/p robotic whipple. He is recovering well from his surgery. ELPIDIO amylase is significantly down today, 84 from 670. This isvery reassuring that there is not a leak. Although he is not nauseous and NGT output is not extremely high, will maintain for one more day given that he does not have a G-tube. His diet will remain sips and chips today. His rivers cathter may be removed and PT/OT should see him. Goals for the day will be to continue using his IS and to get out of bed and walk around the unit. Abhijeet Rojas MD Abhijeet Rojas MD - 05/06/2018 9:47 AM EST Surgical Oncology Inpatient Progress Note ?? ID: Jaciel Blevins is a 57 y.o. male who presented with painless jaundice and a mass in the HOP now 1Day Post-Op robotic whipple Hospital Course: 05/05 POD 0: Robotic Whipple 24 Hour Events/S: -Doing well post operatively. -Denies N/V -Pain is well controlled -Some leakage around ELPIDIO sit O: Last value Range last 24hrs Temperature Temp: 36.5 ??C (97.7 ??F) Temp: [36.5 ??C (97.7 ??F)-36.9 ??C (98.4 ??F)] Heart Rate Heart Rate: 80 Heart Rate: [80-98] Blood Pressure BP: 103/61 BP: (102-132)/(60-75) Respiratory Rate Resp: 16 Resp: [11-28] SpO2 SpO2: 98 % SpO2: [98 %-100 %] 05/05 0701 - 05/06 0700 In: 4679 [I.V.:4329] Out: 1843 [Urine:1518] N ELPIDIO: 225 PE: General: AOx3, NAD, mild jaundic Cardiopulm: RRR, no mumurs, CTAB no w/r/r Abd: soft, nontender, non-distended. Robotic sites closed with glue, c/d/i. Drain with serosanguinous output, frothy with shaking Skin: warm, dry Ext: no c/c/e, cap refill <2sec Neuro: CN II-XII intact. Non-focal, moving all four extremities spontaneously Labs: Recent Labs 05/06/18 0124 05/05/18 1832 WBC 21.5* 21.7* HGB 11.0* 11.5* HCT 33.3* 34.1* PLATELET 292 296 Recent Labs 05/06/18 0124 05/05/18 1832 NA 139 136 K 4.5 3.9 CL 104 102 CO2 25 21* BUN 15 18 CREATININE 0.91 0.86 GLUCOSE 125 101 CALCIUM 8.2* 8.3* MAGNESIUM 0.68* -- PHOS 5.2* -- ELPIDIO Amylase 670 Imaging: No results found. A/P: Jaciel Blevins is a 57 y.o. 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 He is doing well this morning with no major complaints. ELPIDIO amylase is 670, out put is somewhat frothy. There is likely a small amount of leakage. No major changes for Mr. Blevins today. Will reduce mIVF to 75cc/hr, maintain his rivers and keep him onsips and chips. Depending on symptoms, may discontinue NGT today. Abhijeet Rojas MD Tiburcio Katz MD - 05/05/2018 10:24 PM EST Post-Operative Check Jaciel Blevins is a 57 y.o. male s/p Procedure(s): ROBOTIC PANCREATECTOMY,WHIPPLE, PARTIAL GASTRECTOMY W/ PANCREATOJEJUNOSTOMY MODIFIER ROBOT,BERNA [place] S: Mr Blevins has been doing well since the OR. Reports excellent pain control and has no complaints. Denies any sob/chest pain, nausea or vomiting. O: Temp: [36.6 ??C (97.9 ??F)-36.8 ??C (98.2 ??F)] Heart Rate: [83-98] Resp: [11-28] BP: (106-132)/(60-75) SpO2: [99 %-100 %] Heart Rate from SPO2: [83 bpm-93 bpm] I/O last 3 completed shifts: In: 3650 [I.V.:3300; Other:250; IV Piggyback:100] Out: 818 [Urine:643; Other:75; Blood:100] I/O this shift: In: - Out: 240 [Urine:200; Other:40] Recent Results (from the past 24 hour(s)) ABO/Rh Typing Result Value Ref Range ABORh Type A Pos Antibody screen Result Value Ref Range Ab Screen Interp Negative Expires at 2359 on: 05/08/2018 ABORH Recheck Status Result Value Ref Range ABORH Recheck Order Order Placed BLOOD GAS 2 ARTERIAL Result Value Ref Range pH Art 7.39 7.35 - 7.45 pCO2 Art 38 35 - 45 mmHg pO2 Art 232 (H) 85 - 104 mmHg HCO3 Art 22.3 20.0 - 26.0 mmol/L BE Art -2.7 -3.0 - 3.0 mmol/L Hgb Blood Gas 11.7 (L) 13.7 - 16.5 gm/dL O2HB Art 98.6 (H) 94.0 - 97.0 % COHB Art 0.3 % METHB Art 0.3 <=1.5 % Na Whole Blood 135 135 - 145 mmol/L K Whole Blood 4.2 3.5 - 5.0 mmol/L ICa Whole Blood 1.16 1.15 - 1.33 mmol/L CL Whole Blood 105 98 - 107 mmol/L Gluc Whole Bld 116 65 - 199 mg/dL Lactate WB 0.8 0.5 - 2.2 mmol/L FIO2 Art 48 % PF Ratio Art 483 BLOOD GAS 2 ARTERIAL Result Value Ref Range pH Art 7.39 7.35 - 7.45 pCO2 Art 38 35 - 45 mmHg pO2 Art 232 (H) 85 - 104 mmHg HCO3 Art 22.3 20.0 - 26.0 mmol/L BE Art -2.7 -3.0 - 3.0 mmol/L Hgb Blood Gas 11.7 (L) 13.7 - 16.5 gm/dL O2HB Art 98.6 (H) 94.0 - 97.0 % COHB Art 0.3 % METHB Art 0.3 <=1.5 % Na Whole Blood 135 135 - 145 mmol/L K Whole Blood 4.2 3.5 - 5.0 mmol/L ICa Whole Blood 1.16 1.15 - 1.33 mmol/L CL Whole Blood 105 98 - 107 mmol/L Gluc Whole Bld 116 65 - 199 mg/dL Lactate WB 0.8 0.5 - 2.2 mmol/L Surgical Pathology Report Result Value Ref Range Surgical Pathology Report [id number] Location: OR; OR09; A The signing pathologist has (i) examined the relevant preparation(s) for the specimen(s) and (ii) rendered or confirmed the diagnosis(es). . Frozen Section FROZEN SECTION DIAGNOSIS FS-A (Pancreatic neck margin): Negative for carcinoma. 05/05/18 14:12 Electronically signed by: Nicholas JENKINS PhD, Stalin Amaya Verified: 05/05/2018 Pathologist Performed at: -[facility] [place] Dept. of Pathology, [place], [place] This intraoperative consultation should be interpreted as a preliminary diagnosis pending review of the entire specimen and special studies, if any. Body Fluid Culture, Aerobic Result Value Ref Range Gram Stain (A) Cytocentrifuge Gram Stain performed Neutrophils seen Many Gram Negative Rods Many Gram Positive Rods Moderate Gram Positive Cocci in pairs Results called to and read back by Maria T Collazo 05/05/18 14:48:03 Organism Gram Negative Rods (A) Organism Gram Positive Rods (A) Organism Gram Positive Cocci in pairs (A) BLOOD GAS 2 ARTERIAL Result Value Ref Range pH Art 7.37 7.35 - 7.45 pCO2 Art 39 35 - 45 mmHg pO2 Art 230 (H) 85 - 104 mmHg HCO3 Art 22.4 20.0 - 26.0 mmol/L BE Art -2.8 -3.0 - 3.0 mmol/L Hgb Blood Gas 12.8 (L) 13.7 - 16.5 gm/dL O2HB Art 98.0 (H) 94.0 - 97.0 % COHB Art 1.1 % METHB Art 0.3 <=1.5 % Na Whole Blood 134 (L) 135 - 145 mmol/L K Whole Blood 4.6 3.5 - 5.0 mmol/L ICa Whole Blood 1.11 (L) 1.15 - 1.33 mmol/L CL Whole Blood 106 98 - 107 mmol/L Gluc Whole Bld 142 65 - 199 mg/dL Lactate WB 1.1 0.5 - 2.2 mmol/L FIO2 Art 48 % PF Ratio Art 479 Temp Art 36.9 Celsius Hemogram Result Value Ref Range WBC 21.7 (H) 4.0 - 9.5 x10(3)/mcL RBC 3.68 (L) 4.58 - 5.54 x10(6)/mcL Hemoglobin 11.5 (L) 13.7 - 16.5 gm/dL Hematocrit 34.1 (L) 40.5 - 48.5 % MCV 92.7 82.9 - 93.1 fL MCH 31.3 27.5 - 32.1 pg MCHC 33.7 32.0 - 35.7 gm/dL Platelets 296 145 - 357 x10(3)/mcL RDWSD 62.3 (H) 36.0 - 45.0 fL RDWCV 18.6 (H) 11.4 - 13.8 % MPV 10.5 7.6 - 12.9 fL nRBC % Auto 0.0 % nRBC Abs Auto 0.000 0.000 - 0.000 x10(3)/mcL Comprehensive metabolic panel (non-fasting) Result Value Ref Range Glucose Lvl 101 65 - 199 mg/dL BUN 18 10 - 20 mg/dL Creatinine 0.86 0.80 - 1.50 mg/dL Sodium 136 135 - 145 mmol/L Potassium 3.9 3.5 - 5.0 mmol/L Chloride 102 98 - 107 mmol/L CO2 21 (L) 22 - 31 mmol/L Anion Gap 13 5 - 15 mmol/L Calcium 8.3 (L) 8.5 - 10.5 mg/dL Total Protein 5.7 (L) 6.1 - 8.0 gm/dL Albumin 2.7 (L) 3.2 - 5.2 gm/dL AST 366 (H) 0 - 39 unit/L ALT 345 (H) 0 - 55 unit/L Alk Phos 130 (H) 40 - 120 unit/L Total Bilirubin 8.3 (H) 0.2 - 1.3 mg/dL eGFR 96 >=60 mL/min/1.73 m?? eGFR 111 >=60 mL/min/1.73 m?? Physical Exam Gen: sleepy, Ox3, NAD, resting comfortably, jaundice CVS: RRR Resp: breathing comfortably on 2L NC Abd: soft, minimally tender, nondistended, Incisions c/d/i. R ELPIDIO site dressing saturated/changed on exam. ELPIDIO with serosang output. Holding suction. : rivers in place, light yellow urine in bag Ext: SCDs in place, WWP AP Jaciel Blevins is a 57 y.o. male s/p robotic whipple currently in stable condition and recovering well. - continue post operative plan per primary team - pain well controlled - hemodynamically stable, UOP adequate (243cc since OR) Tiburcio Katz MD 05/05/2018 documented in this encounter H&P Notes Krishna Collazo MD - 05/05/2018 6:43 AM EST Patient Name: Jaciel Blevins Patient Age: 57 y.o. Birthdate: 1960 Admit date: 05/05/2018 Attending Physician: Krishna Collazo MD I saw Jaciel this am in the [place] area. He says I started to feel a lot better just before [place]- urine cleared up. I started to get my appetite back and put on a little weight. He's on omeprazole and Creon with meals. No fevers/chills. No concerns on exam. OK to proceed as planned with the whipple procedure-informed consent was obtained this am. Estela Collazo MD 05/05/2018 6:45 AM documented in this encounter Miscellaneous Notes Plan of Care - Janeth Figueredo RN - 05/12/2018 1:12 AM EST Problem: Patient Care Overview Goal: Individualization & Mutuality Outcome: Ongoing (Interventions Implemented as Appropriate) 05/06/18 1749 05/07/18 0817 Individualization Patient Specific Goals Ambulate TID -- Mutuality/Individual Preferences What Anxieties, Fears or Concerns Do You Have About Your Health or Care? -- none What Questions Do You Have About Your Health or Care? -- none What Information Would Help Us Give You More Personalized Care? -- none OUTCOME EVALUATION NOTE: OUTCOME SUMMARY: Jaciel had few complaints overnight. He reports minimal pain - taking only scheduled Tylenol. No report of nausea. Previous ELPIDIO site covered with ostomy appliance - emptying independently. Lovenox teaching completed - successfully self administered evening dose. PLAN MOVING FORWARD: ? Pain management, encourage movement in room and OOB to chair as tolerated, encourage PO intake ? INDIVIDUALIZED FALL PREVENTION INTERVENTIONS: Medium Falls Risk ? Patient-specific fall risk factors per assessment: [current deficits]:?Patient has 2 or more active medical diagnoses, has generalized weakness, has tubes/drains, and is taking opioid/narcotic medications for pain management. ? Assistance [level of assistance required for transfers and ambulation]:?SBA ? Supervision [direct monitoring required during toileting and ADLs]:?Eyes on ? Surveillance [continuous indirect monitoring]:?Purposeful rounding, observation by staff, NKE done at the bedside, bed/chair alarms activated, family at bedside, environmental modifications (waste basket is out of the path and the IV tubing and cords are free from the floor), assistive device available and within reach, lighting adjusted for task, bed in low position, wheels locked, side rails up (x3), nonskid socks worn OOB, [place] ID band on, no restraints, and call light is within reach at all times. ? Patient-specific fall prevention interventions for sensory deficits provided, if applicable:?N/A ?? CPG GOAL OUTCOME EVALUATION:? Goal: Fall Prevention-Safe Patient Handling Outcome: Ongoing (Interventions Implemented as Appropriate) 05/11/181999 [place] Fall Risk History of Falling 0 Secondary Diagnosis 15 Ambulatory Aids 0 Intravenous Therapy/Heparin/Saline Lock 20 Gait/Transferring 0 Mental Status 0 Score 35 OTHER [place] Fall Risk Med Restraint Interventions Safety Promotion/Fall Prevention activity supervised;fall prevention program maintained;muscle strengthening facilitated;nonskid shoes/slippers when out of bed;safety round/check completed Positioning Body Position independent Activity Activity Type activity adjusted per tolerance;up ad ita Activity Assistance Provided independent Assistive Device Utilized none Goal: Infection Control Outcome: Ongoing (Interventions Implemented as Appropriate) 05/11/181999 Safety Interventions Isolation Precautions standard precautions maintained Infection Prevention environmental surveillance performed;personal protective equipment utilized;rest/sleep promoted Coping Strategies Supportive Measures active listening utilized;problem solving facilitated;relaxation techniques promoted;self-care encouraged;verbalization of feelings encouraged Plan of Care - Cammy Gil - 05/11/2018 2:17 PM EST Problem: Patient Care Overview Goal: Plan of Care Review Outcome: Ongoing (Interventions Implemented as Appropriate) 05/07/18 1658 05/11/18 0800 Coping/Psychosocial Plan Of Care Reviewed With -- patient Plan of Care Review Progress progress toward functional goals as expected -- OUTCOME EVALUATION NOTE: OUTCOME SUMMARY: Pt A/Ox4, ambulating in hallway with steady gait. Denies pain. Tolerating small meals and denies nausea, declines antiemetics. ABX as ordered, VSS. PLAN MOVING FORWARD: Continued to monitor INDIVIDUALIZED FALL PREVENTION INTERVENTIONS: Patient-specific fall risk factors per assessment: [current deficits]: none Assistance [level of assistance required for transfers and ambulation]: indep Supervision [direct monitoring required during toileting and ADLs]: indep Surveillance [continuous indirect monitoring]: Call cunningham in reach, hourly rounding, alexandro Patient-specific fall prevention interventions for sensory deficits provided, if applicable: [X] Yes CPG GOAL OUTCOME EVALUATION: Safety maintained Goal: Individualization & Mutuality Outcome: Ongoing (Interventions Implemented as Appropriate) 05/06/18174805/07/18816 Individualization Patient Specific Goals Ambulate TID -- Mutuality/Individual Preferences What Anxieties, Fears or Concerns Do You Have About Your Health or Care? -- none What Questions Do You Have About Your Health or Care? -- none What Information Would Help Us Give You More Personalized Care? -- none Goal: Fall Prevention-Safe Patient Handling Outcome: Ongoing (Interventions Implemented as Appropriate) 05/10/18201905/11/18 0800 [place] Fall Risk History of Falling -- 0 Secondary Diagnosis -- 15 Ambulatory Aids -- 0 Intravenous Therapy/Heparin/Saline Lock -- 20 Gait/Transferring -- 0 Mental Status -- 0 Score -- 35 OTHER [place] Fall Risk -- Med Restraint Interventions Safety Promotion/Fall Prevention -- activity supervised Positioning Body Position -- independent Activity Activity Type -- activity adjusted per tolerance Activity Assistance Provided -- independent Assistive Device Utilized none -- Goal: Infection Control Outcome: Ongoing (Interventions Implemented as Appropriate) 05/10/18201905/11/18 08 Safety Interventions Isolation Precautions -- standard precautions maintained Infection Prevention -- rest/sleep promoted Coping Strategies Supportive Measures active listening utilized;problem solving facilitated;relaxation techniques promoted;self-care encouraged;verbalization of feelings encouraged -- Goal: Interdisciplinary Rounds/Family Conf Outcome: Ongoing (Interventions Implemented as Appropriate) 05/07/18 1658 Interdisciplinary Rounds/Family Conf Participants nursing;physician;patient;advanced practice nurse Plan of Care - Janeth Figueredo RN - 05/11/2018 12:21 AM EST Problem: Patient Care Overview Goal: Individualization & Mutuality Outcome: Ongoing (Interventions Implemented as Appropriate) 05/06/18174805/07/18816 Individualization Patient Specific Goals Ambulate TID -- Mutuality/Individual Preferences What Anxieties, Fears or Concerns Do You Have About Your Health or Care? -- none What Questions Do You Have About Your Health or Care? -- none What Information Would Help Us Give You More Personalized Care? -- none OUTCOME EVALUATION NOTE: OUTCOME SUMMARY: Jaciel continues to report minimal pain - Oxycodone available as needed. Bowel sounds are hypoactive. Jaciel reported a brief episode of nausea - Zofran administered x1. No bowel movements overnight. Voiding adequate amounts of urine. Abdominal incisions intact with no evidence of drainage. Previous ELPIDIO site intact with ostomy appliance in place. Lovenox teaching started - still needs to self-administer. PLAN MOVING FORWARD: ? Pain management, encourage movement in room and OOB to chair as tolerated, encourage PO intake ? INDIVIDUALIZED FALL PREVENTION INTERVENTIONS: Medium Falls Risk ? Patient-specific fall risk factors per assessment: [current deficits]:?Patient has 2 or more active medical diagnoses, intermittently infusing IV ? Assistance [level of assistance required for transfers and ambulation]:?Independent ? Supervision [direct monitoring required during toileting and ADLs]:?Eyes on ? Surveillance [continuous indirect monitoring]:?Purposeful rounding, observation by staff, NKE done at the bedside, bed/chair alarms activated, family at bedside, environmental modifications (waste basket is out of the path and the IV tubing and cords are free from the floor), assistive device available and within reach, lighting adjusted for task, bed in low position, wheels locked, side rails up (x3), nonskid socks worn OOB, [place] ID band on, no restraints, and call light is within reach at all times. ? Patient-specific fall prevention interventions for sensory deficits provided, if applicable:?N/A ?? CPG GOAL OUTCOME EVALUATION: Goal: Fall Prevention-Safe Patient Handling Outcome: Ongoing (Interventions Implemented as Appropriate) 05/10/182019 [place] Fall Risk History of Falling 0 Secondary Diagnosis 15 Ambulatory Aids 0 Intravenous Therapy/Heparin/Saline Lock 20 Gait/Transferring 0 Mental Status 0 Score 35 OTHER [place] Fall Risk Med Restraint Interventions Safety Promotion/Fall Prevention activity supervised;fall prevention program maintained;muscle strengthening facilitated;nonskid shoes/slippers when out of bed;safety round/check completed Positioning Body Position independent Activity Activity Type activity adjusted per tolerance;up ad ita Activity Assistance Provided independent Assistive Device Utilized none Goal: Infection Control Outcome: Ongoing (Interventions Implemented as Appropriate) 05/10/182019 Safety Interventions Isolation Precautions standard precautions maintained Infection Prevention environmental surveillance performed;personal protective equipment utilized;rest/sleep promoted;single patient room provided Coping Strategies Supportive Measures active listening utilized;problem solving facilitated;relaxation techniques promoted;self-care encouraged;verbalization of feelings encouraged Plan of Care - Janeth Figueredo RN - 05/10/2018 12:11 AM EST Problem: Patient Care Overview Goal: Individualization & Mutuality Outcome: Ongoing (Interventions Implemented as Appropriate) 05/06/18 1749 05/07/18 0817 Individualization Patient Specific Goals Ambulate TID -- Mutuality/Individual Preferences What Anxieties, Fears or Concerns Do You Have About Your Health or Care? -- none What Questions Do You Have About Your Health or Care? -- none What Information Would Help Us Give You More Personalized Care? -- none OUTCOME EVALUATION NOTE: OUTCOME SUMMARY: Jaciel rested well between care. He reports minimal abdominal pain - DYSLEXIA TEACHER available but he has deniedthe need for it. Bowel sounds are hypoactive. Per report patient is to be on a clear liquid diet with toast. Tolerating with no report of nausea. Voiding adequate amounts of clear yellow urine. Abdominal incision intact with no evidence of drainage. ELPIDIO remains in place producing moderate amounts of serosanguineous drainage. PLAN MOVING FORWARD: ? Pain management, encourage movement in room and OOB to chair as tolerated, encourage PO intake ? INDIVIDUALIZED FALL PREVENTION INTERVENTIONS: Medium Falls Risk ? Patient-specific fall risk factors per assessment: [current deficits]:?Patient has 2 or more active medical diagnoses, has generalized weakness, has tubes/drains, and is taking opioid/narcotic medications for pain management. ? Assistance [level of assistance required for transfers and ambulation]:?SBA ? Supervision [direct monitoring required during toileting and ADLs]:?Eyes on ? Surveillance [continuous indirect monitoring]:?Purposeful rounding, observation by staff, NKE done at the bedside, bed/chair alarms activated, family at bedside, environmental modifications (waste basket is out of the path and the IV tubing and cords are free from the floor), assistive device available and within reach, lighting adjusted for task, bed in low position, wheels locked, side rails up (x3), nonskid socks worn OOB, [place] ID band on, no restraints, and call light is within reach at all times. ? Patient-specific fall prevention interventions for sensory deficits provided, if applicable:?N/A ?? CPG GOAL OUTCOME EVALUATION: Plan of Care - Deb Vasquez RN - 05/09/2018 7:31 PM EST Problem: Patient Care Overview Goal: Plan of Care Review Outcome: Ongoing (Interventions Implemented as Appropriate) 05/07/18 1658 05/09/18 0915 Coping/Psychosocial Plan Of Care Reviewed With -- patient Plan of Care Review Progress progress toward functional goals as expected -- OUTCOME EVALUATION NOTE: OUTCOME SUMMARY: PT did not report any pain throughout shift, did not use DYSLEXIA TEACHER. UOP adequate, dark roseanna, aware. BM& flatus reported during shift. ELPIDIO output large, emptied ~Q3- 4 hours due to volume. Pt ambulatedx3 today w/o incident. PLAN MOVING FORWARD: Continue to monitor pain, I&O's, nutrition, & promote ambulation. INDIVIDUALIZED FALL PREVENTION INTERVENTIONS: MED Fall Risk Patient-specific fall risk factors per assessment: [current deficits]: Patient has 2 or more active medical diagnoses, has an actively infusing IV line, has had recent surgery, uses an ambulatory aid, has generalized weakness, has tubes/drains, is taking opioid/narcotic medications for pain management, deficits (glasses). Assistance [level of assistance required for transfers and ambulation]: Independent Supervision [direct monitoring required during toileting and ADLs]: Independent Surveillance [continuous indirect monitoring]: Purposeful rounding, observation by staff, NKE done at the bedside, family at bedside, environmental modifications (waste basket is out of the path and the IV tubing and cords are free from the floor), assistive device available and within reach, urinal at bedside, lighting adjusted for task, bed in low position, wheels locked, side rails up (x3), nonskid socks worn OOB, [place] ID band on, no restraints, and call light is within reach at all times. Patient-specific fall prevention interventions for sensory deficits provided, if applicable: N/A CPG GOAL OUTCOME EVALUATION: Goal: Individualization & Mutuality Outcome: Ongoing (Interventions Implemented as Appropriate) 05/06/18 1749 05/07/18 0817 Individualization Patient Specific Goals Ambulate TID -- Mutuality/Individual Preferences What Anxieties, Fears or Concerns Do You Have About Your Health or Care? -- none What Questions Do You Have About Your Health or Care? -- none What Information Would Help Us Give You More Personalized Care? -- none Goal: Fall Prevention-Safe Patient Handling Outcome: Ongoing (Interventions Implemented as Appropriate) 05/09/18 0915 05/09/18 1300 [place] Fall Risk History of Falling 0 -- Secondary Diagnosis 15 -- Ambulatory Aids 0 -- Intravenous Therapy/Heparin/Saline Lock 20 -- Gait/Transferring 0 -- Mental Status 0 -- Score 35 -- OTHER [place] Fall Risk High -- Restraint Interventions Safety Promotion/Fall Prevention activity supervised;fall prevention program maintained;muscle strengthening facilitated;nonskid shoes/slippers when out of bed;safety round/check completed -- Positioning Body Position supine, head elevated;supine, legs elevated -- Activity Activity Type -- ambulated in lockhart Activity Assistance Provided -- independent Assistive Device Utilized -- none Goal: Infection Control Outcome: Ongoing (Interventions Implemented as Appropriate) 05/09/18 0915 Safety Interventions Isolation Precautions standard precautions maintained Infection Prevention barrier precautions utilized;environmental surveillance performed;equipment surfaces disinfected;personal protective equipment utilized;rest/sleep promoted;single patient room provided Coping Strategies Supportive Measures active listening utilized;counseling provided;decision- making supported;goal setting facilitated;positive reinforcement provided;problem solving facilitated;relaxation techniques promoted;self-care encouraged;self-reflection promoted;self-responsibility promoted;verbalization of feelings encouraged Goal: Discharge Needs Assessment Outcome: Ongoing (Interventions Implemented as Appropriate) 05/07/18 165 Discharge Needs Assessment Concerns To Be Addressed adjustment to diagnosis/illness concerns Readmission Within The Last 30 Days no previous admission in last 30 days Equipment Needed After Discharge none Discharge Disposition still a patient Activity/Self Care Review of Systems Equipment Currently Used at Home none Living Environment Transportation Available family or friend will provide Goal: Interdisciplinary Rounds/Family Conf Outcome: Ongoing (Interventions Implemented as Appropriate) 05/07/18 165 Interdisciplinary Rounds/Family Conf Participants nursing;physician;patient;advanced practice nurse Plan of Care - Susan Gastelum RN - 05/09/2018 12:42 AM EST Problem: Patient Care Overview Goal: Plan of Care Review Outcome: Ongoing (Interventions Implemented as Appropriate) 05/07/18 1658 05/08/181925 Coping/Psychosocial Plan Of Care Reviewed With -- patient Plan of Care Review Progress progress toward functional goals as expected -- OUTCOME EVALUATION NOTE: ?? OUTCOME SUMMARY: ?? Denied pain or nause. Pt had good UO. Pt able to complete his own Lovenox injection. NGT producing thick green, dark secretions. Flushed per protocol and prn for patency. Pt able to pass gas this shift. NGT clamped at 0200 per MD order, pt denied nausea. ?? PLAN MOVING FORWARD: ?? Monitor I/O, PVR, pain, and NGT. Encourage ambulation. Reinforce lovenox teaching. ?? INDIVIDUALIZED FALL PREVENTION INTERVENTIONS: ?? Patient-specific fall risk factors per assessment: [current deficits]: 57 y/o s/p whipple with PIV, and multiple diagnosis. ?? Assistance [level of assistance required for transfers and ambulation]: Stand by ?? Supervision [direct monitoring required during toileting and ADLs]: Eyes on ?? Surveillance [continuous indirect monitoring]: Nurse knowledge exchange, purposeful rounding, environmental modifications (waste basket is out of the path and the IV tubing and cords are free from the floor), fall reduction program in place, lighting adjusted for task, bed in low position, wheels freda d, side rails up (x2), nonskid socks worn OOB, no restraints, call light is within reach at all times, assistive device, bed/chair alarm, [place] ID band on ?? Patient-specific fall prevention interventions for sensory deficits provided, if applicable: [X] N/A ? CPG GOAL OUTCOME EVALUATION: ?? Goal: Fall Prevention-Safe Patient Handling Outcome: Ongoing (Interventions Implemented as Appropriate) 05/08/181925 [place] Fall Risk History of Falling 0 Secondary Diagnosis 15 Ambulatory Aids 15 Intravenous Therapy/Heparin/Saline Lock 20 Gait/Transferring 10 Mental Status 0 Score 60 OTHER [place] Fall Risk High Restraint Interventions Safety Promotion/Fall Prevention activity supervised;fall prevention program maintained;nonskid shoes/slippers when out of bed;safety round/check completed Positioning Body Position independent Activity Activity Type activity adjusted per tolerance Activity Assistance Provided assistance, stand-by Assistive Device Utilized front-wheel walker Goal: Infection Control Outcome: Ongoing (Interventions Implemented as Appropriate) 05/08/18 192 Safety Interventions Isolation Precautions standard precautions maintained Infection Prevention barrier precautions utilized;rest/sleep promoted;single patient room provided Coping Strategies Supportive Measures active listening utilized;self-care encouraged;self- reflection promoted;self-responsibility promoted Plan of Care - Bonnie Quintero RN - 05/08/2018 2:37 PM EST Problem: Patient Care Overview Goal: Plan of Care Review Outcome: Ongoing (Interventions Implemented as Appropriate) 05/07/18165705/08/18 0750 Coping/Psychosocial Plan Of Care Reviewed With -- patient Plan of Care Review Progress progress toward functional goals as expected -- OUTCOME EVALUATION NOTE: OUTCOME SUMMARY: Pt was able to walk multiple times today, had two small BM's and some flatus. He has minimal c/o pain, able to rest in between care, at bedside much of the day. ELPIDIO continues to have large output. NGT suction is intermittently not suctioning, RN flushes and reconnects suctions intermittently, MD aware. Otherwise pt resting comfortably, will continue to monitor. PLAN MOVING FORWARD: Monitor future BM's, NGT suction, pain, encourage continued ambulation. Plan of Care - Susan Gastelum RN - 05/08/2018 12:14 AM EST Problem: Patient Care Overview Goal: Plan of Care Review Outcome: Ongoing (Interventions Implemented as Appropriate) 05/07/18165705/07/18 195 Coping/Psychosocial Plan Of Care Reviewed With -- patient Plan of Care Review Progress progress toward functional goals as expected -- OUTCOME EVALUATION NOTE: OUTCOME SUMMARY: Pt reported 4/10 abdominal pain, DYSLEXIA TEACHER utilized. Pt had good UO, retention at times, PVR for 100 mL. Pt second void 275 mL with PVR of 70. Teaching initiated on lovenox, pt watched and received teaching well. NGT producing thick green, dark secretions. Flushed per protocol. PLAN MOVING FORWARD: Monitor I/O, PVR, pain, and NGT. Encourage ambulation. Reinforce lovenox teaching. INDIVIDUALIZED FALL PREVENTION INTERVENTIONS: Patient-specific fall risk factors per assessment: [current deficits]: 57 y/o s/p whipple with PIV, and multiple diagnosis. Assistance [level of assistance required for transfers and ambulation]: Stand by Supervision [direct monitoring required during toileting and ADLs]: Eyes on Surveillance [continuous indirect monitoring]: Nurse knowledge exchange, purposeful rounding, environmental modifications (waste basket is out of the path and the IV tubing and cords are free from the floor), fall reduction program in place, lighting adjusted for task, bed in low position, wheels freda d, side rails up (x2), nonskid socks worn OOB, no restraints, call light is within reach at all times, assistive device, bed/chair alarm, [place] ID band on Patient-specific fall prevention interventions for sensory deficits provided, if applicable: [X] N/A CPG GOAL OUTCOME EVALUATION: Goal: Fall Prevention-Safe Patient Handling Outcome: Ongoing (Interventions Implemented as Appropriate) 05/07/18195005/07/181957 [place] Fall Risk History of Falling -- 0 Secondary Diagnosis -- 15 Ambulatory Aids -- 15 Intravenous Therapy/Heparin/Saline Lock -- 20 Gait/Transferring -- 10 Mental Status -- 0 Score -- 60 OTHER [place] Fall Risk -- High Restraint Interventions Safety Promotion/Fall Prevention activity supervised;nonskid shoes/slippers when out of bed;safety round/check completed -- Positioning Body Position independent -- Activity Activity Type activity adjusted per tolerance -- Activity Assistance Provided assistance, stand-by -- Assistive Device Utilized front-wheel walker -- Goal: Infection Control Outcome: Ongoing (Interventions Implemented as Appropriate) 05/07/181950 Safety Interventions Isolation Precautions standard precautions maintained Infection Prevention rest/sleep promoted;single patient room provided Coping Strategies Supportive Measures active listening utilized;self-care encouraged;self- reflection promoted;self-responsibility promoted [facility] Plan of Care - Lexie-Desmond Rice RN - 05/07/2018 5:10 PM EST Problem: Patient Care Overview Goal: Plan of Care Review Outcome: Ongoing (Interventions Implemented as Appropriate) 05/07/18 1658 Coping/Psychosocial Plan Of Care Reviewed With patient Plan of Care Review Progress progress toward functional goals as expected OUTCOME EVALUATION NOTE: OUTCOME SUMMARY: Patient A&Ox4, VSS. Rivers removed this morning around 1000; voided 50cc around 1345, PVR ~65. MDnotified. 1630 voided 200 with PVR ~194; MD notified. UOP tea colored. Copious, thick, dark green NGT output; NGT required flushing x3 for patency this shift; patient tolerating well. Clear liquids diet with taiwanese ice and popcycles tolerated well; no c/o nausea. Large output around ELPIDIO insertion site, nipple pouch applied. Patient reports no pain, controlled with dilaudid DYSLEXIA TEACHER. Patient up to walk in lockhart with OT; tolerated well, not s/s. PLAN MOVING FORWARD: Monitor I&O Encourage PO intake Promote ambulation and OOB as tolerated INDIVIDUALIZED FALL PREVENTION INTERVENTIONS: HIGH fall risk Patient-specific fall risk factors per assessment: [current deficits]: Recent surgery, active continuous IV infusions, generalized weakness, ELPIDIO, NGT, use of FWW Assistance [level of assistance required for transfers and ambulation]: SBA with FWW Supervision [direct monitoring required during toileting and ADLs]: Eyes on Surveillance [continuous indirect monitoring]: Bed/chair alarm, masimo, hourly rounding, room near unit station, NKE at bedside, yellow fall band on, environmental modifications (clutter-free environment, tubing secured, bed low, lighting adjusted, nonskid socks when OOB, bed wheels locked, call lightwith in reach, upper side rails x2, ID bands on) Patient-specific fall prevention interventions for sensory deficits provided, if applicable: [X] N/A CPG GOAL OUTCOME EVALUATION: Goal: Individualization & Mutuality Outcome: Ongoing (Interventions Implemented as Appropriate) 05/06/18 1749 05/07/18 0817 Individualization Patient Specific Goals Ambulate TID -- Mutuality/Individual Preferences What Anxieties, Fears or Concerns Do You Have About Your Health or Care? -- none What Questions Do You Have About Your Health or Care? -- none What Information Would Help Us Give You More Personalized Care? -- none Goal: Fall Prevention-Safe Patient Handling Outcome: Ongoing (Interventions Implemented as Appropriate) 05/07/18 0759 05/07/18 1300 [place] Fall Risk History of Falling 0 -- Secondary Diagnosis 15 -- Ambulatory Aids 15 -- Intravenous Therapy/Heparin/Saline Lock 20 -- Gait/Transferring 10 -- Mental Status 0 -- Score 60 -- OTHER [place] Fall Risk High -- Restraint Interventions Safety Promotion/Fall Prevention activity supervised;fall prevention program maintained;safety round/check completed;muscle strengthening facilitated;nonskid shoes/slippers when out of bed -- Positioning Body Position independent -- Activity Activity Type -- ambulated in lockhart Activity Assistance Provided -- assistance, 1 person Assistive Device Utilized -- front-wheel walker Goal: Infection Control Outcome: Ongoing (Interventions Implemented as Appropriate) 05/07/18758 Safety Interventions Isolation Precautions standard precautions maintained Infection Prevention rest/sleep promoted;environmental surveillance performed;single patient room provided Coping Strategies Supportive Measures active listening utilized;decision-making supported;goal setting facilitated;positive reinforcement provided;self-care encouraged;self- reflection promoted;self-responsibility promoted;problem solving facilitated;relaxation techniques promoted;verbalization of feelings encouraged Goal: Discharge Needs Assessment Outcome: Ongoing (Interventions Implemented as Appropriate) 05/07/181657 Discharge Needs Assessment Concerns To Be Addressed adjustment to diagnosis/illness concerns Readmission Within The Last 30 Days no previous admission in last 30 days Equipment Needed After Discharge none Discharge Disposition still a patient Activity/Self Care Review of Systems Equipment Currently Used at Home none Living Environment Transportation Available family or friend will provide Goal: Interdisciplinary Rounds/Family Conf Outcome: Ongoing (Interventions Implemented as Appropriate) 05/07/181657 Interdisciplinary Rounds/Family Conf Participants nursing;physician;patient;advanced practice nurse Plan of Care - Renato Vaughan, PT - 05/07/2018 2:42 PM EST Physical Therapy Evaluation Pertinent History of Current Problem: 57 y.o. male who presented with painless jaundice and a mass in the HOP now s/p robotic whipple Precautions Comments: DYSLEXIA TEACHER, IVs, lap incision, Assessment: Pt seen for evaluation today and presents with DYSLEXIA TEACHER, incision, decreased p.o intake, IVs,s/p robotic Whipple. Pt mobilizing well, agrees to have assist when getting up in order to manage lines/IV pole Please see associated flow sheet data below for objective information regarding today's se ssion Staff Mobility Recommendations Supervision with IV pole RENATO VAUGHAN, PT Pager: [phone] Inpatient Physical Therapy 2017 PT Evaluation Code Rationale: ?? Diagnosis & Pertinent Co-Morbidities, personal factors, and present illness affecting Plan ofCare: Patient Active Problem List Diagnosis Code ??? Malignant neoplasm of head of pancreas C25.0 ??? Exocrine pancreatic insufficiency K86.81 ??? Pancreatic cancer C25.9 Additional personal factors or co-morbidities that impact plan: ?? Total # of Factors: 0 1-2 3+ x ?? Examination of body system impairments, functional limitations and behaviors, and/or participation restrictions. Addressing 1-2 elements Addressing 3 + elements x Addressing 4 + elements ?? Clinical presentation: See assessment above. Stable/Uncomplicated Evolving/Fluctuating Symptoms Unstable/Unpredictable x ?? Clinical decision making of moderate complexity based on pt's functional performance as outlined in this evaluation. 05/07/18 1442 Rehab Evaluation Document Type evaluation Total Evaluation Minutes, Physical Therapy 25 Patient Effort excellent Symptoms Noted During/After Treatment none General Information Patient Profile Review yes Onset of Illness/Injury or Date of Surgery 04/07/19 Patient/Family/Caregiver Comments/Observations My will be home with me for a couple weeks General Observations of Patient awake, resting in bed, agreeable to mobilize Pertinent History of Current Problem 57 y.o. 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 Vital Signs Heart Rate 69 SpO2 95 % O2 Device RA Cognitive Assessment/Intervention Additional Documentation (WNL) Cognitive Assessment Interventions Orientation Status (Cognitive) oriented x 4 Follows Commands/Answers Questions (Cognitive) 100% of the time Behavior/Mood Observations (Cognitive) alert;behavior appropriate to situation;cooperative Pain Scale/Rating Pain Assessment Scale Numbers (Numeric Rating Pain Scale) Pain Level 4 POSS ([place] Opioid-Induced Sed Scale) 1 - Awake and alert ROM (Range of Motion) Additional Documentation (WFL) Mobility Assessment/Training Additional Documentation Bed Mobility Assessment/Treatment (Group);Transfer Assessment/Treatment (Group);Gait Assessment/Treatment (Group) Bed Mobility Assessment/Treatment Comment (Bed Mobility) able to tx with cues, Roll Left [place] (Bed Mobility) conditional independence Roll Right [place] (Bed Mobility) conditional independence Atikdg-tp-Czh [place] (Bed Mobility) conditional independence Glj-sg-Wnftov [place] (Bed Mobility) conditional independence Safety Issues (Bed Mobility) (lines, tubing) Transfer Assessment/Treatment [place] (Sit-Stand Transfers) supervision required [place] (Stand-Sit Transfers) supervision required Comment (Transfers) moves well, good body mechanics Safety Issues (Transfers) (lines, tubing) Impairments (Transfers) (mild discomfort) Gait Assessment/Treatment Assistive Device (Gait) (IV pole) [place] (Gait) supervision required Distance in Feet (Gait) 450 ft Comment (Gait) Pt tolerating ambulation, motivated Gait Pattern Analysis swing-through gait Safety Issues (Gait) (IV lines/tubing) Motor Skills/Interventions Additional Documentation Balance Skills Training (Group) Balance Skills Training Sitting Balance: Static good balance Sitting Balance: Dynamic good balance Obp-ps-Qejid Balance good balance Standing Balance: Static good balance Standing Balance: Dynamic good balance Coping Verbalized Emotional State acceptance Observed Emotional State accepting Plan of Care Review Plan Of Care Reviewed With patient Progress progress toward functional goals as expected Clinical Impression Functional Level at Time of Evaluation supervision while ambulating due to IV pole, DYSLEXIA TEACHER, lines Patient/Family Goals Statement home when medically stable Therapy Frequency evaluation only Anticipated Equipment Needs at Discharge (none) Anticipated Discharge Disposition home with assist Initial Assessments - Jacque Piper RN - 05/07/2018 1:52 PM EST Office of Care Management Initial Assessment Jacque Piper RN reviewed record and discussed patient with Care Team. Source of Information: Patient, team, bedside nurse and medical record Introduced self/reviewed role; services accepted. Summary for Hospitalization: 57 y.o. male who presented with painless jaundice and a mass in the HOPnow 2 Days Post-Op robotic Abhijeet Ambrose MD Date of Service: 05/07/2018 ??9:59 AM Reason for Hospitalization: Pancreatic cancer Patient Active Problem List Diagnosis Code ??? Malignant neoplasm of head of pancreas C25.0 ??? Exocrine pancreatic insufficiency K86.81 ??? Pancreatic cancer C25.9 Past medical History: History reviewed. No pertinent past medical history. Hospitalizations Within the Past 30 Days: None Anticipated Length Of Stay (If known): TBD Admission order confirmed/dated: Krishna Collazo MD 05/05/18 1820 Current Decision-Making Capacity: Self, A&Ox3, Full Capacity Advance Care Planning: Full Code States he has one and needs to bring in If AD's have not been completed Nikki would be surrogate decision maker per [place] surrogate decision making law. (Only good for 90 days) Any patient receiving care at [facility] must abide by [place] law. The hierarchy for surrogate decision making is: (a) Patient???s spouse, or civil union partner or common law spouse unless there is a divorce proceeding, separation agreement, or restraining order limiting that person???s relationship with the patient. (b) Any adult son or daughter of the patient. (c) Either parent of the patient. (d) Any adult brother or sister of the patient. (e) Any adult grandchild of the patient. (f) Any grandparent of the patient. (g) Any adult aunt, uncle, niece, or nephew of the patient. (h) A close friend of the patient. (i) The agent with financial power of criminal defense attorney or a conservator appointed in accordance with RSA 464-A. (j) The guardian of the patient???s estate. Current Coping/Education/Information Needs: Happy with hospital services Current Functional Ability: SBA Functional Status Prior to Admission: Independent Home Environment: Lives with , 2 dogs. Full flight to enter home and full flight to bedroom [address] [facility] [address] Social & Family Supports/Community Resources: Extended Emergency Contact Information Primary Emergency Contact: nikki blevins Mobile Relation: Spouse Behavioral Health History: denies Other Pertinent/Service Specific Information: No Health/Prescription Coverage: Primary Insurance: [employer] Payor: [employer] / Plan: [facility] PPO / Product Type: *No Product type* / Secondary Insurance: N/A Prescription Coverage: [facility] Preferred Pharmacy: [facility] - [place], [place] - [facility] [address] Primary Care Provider: Corrie Pacheco APRN [phone] Patient/Caregiver Goals of Treatment: to go home to[place] Potential Needs for Transition of Care: Rehab/SNF: n/a Home Health: 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 A letter describing our affiliations was reviewed with them and they were educated about their right to choose where referrals are placed. Patient requests referral to [facility]. PHONE: [phone] FAX: [phone]. Expected date of discharge: 05/12/18. Referral routed to the Documentation Consultant for matching with agency/vendor and to provide any required information. DME: n/a Community Resources: No Transportation: will drive patient home via private car Dialysis: n/a Anticipated Barriers to Discharge/Special Considerations: none Assessment: [facility] routed and orders pended. No other discharge needs identified on assessment, Plan: A member of the Care Management team will continue to monitor progress, follow for continuity of care and assist with transition of care planning. Jacque Piper RN acquisitions logistics analyst Pager: [phone] Plan of Care - Antoinette Sheets OT - 05/07/2018 1:45 PM EST Occupational Therapy Evaluation Pertinent History of Current Problem: Jaciel Blevins is a 57 y.o. male who presented with painless jaundice and a mass in the HOP now s/p robotic whipple Precautions/Restrictions: fall(Drain, log roll, DYSLEXIA TEACHER) Assessment: Pt has been seen for occupational therapy evaluation, please refer to associated flowsheet data listed below for details. Jaciel Blevins presents with the following performance skill deficits and client factors: primary limitations are lines and drains. Patient is normally very active, independent, works enjoys hiking. Patient's pain is well controlled, he was able to manage lower body self care and mobility w/FWW with supervision and assist with line management. Anticipate that as his lines and drains are removed he will return to his baseline level of independence. Patient's will be available to assist as needed upon discharge. Do not anticipate further OT needs while hospitalized. Staff Recommendations: Encourage OOB activity and participation in all self care tasks Anticipated Discharge Disposition: home with assist Pager: [phone] Antoinette Sheets, OT 05/07/2018 Occupational Therapy Rehabilitation Department 2017 OT Evaluation Code Rationale: ?? Diagnosis & Pertinent Co-Morbidities affecting Plan of Care: see PMHx ?? Occupational Profile & Client History: Brief Expanded Extensive x ?? Assessment of Occupational Performance: 1-3 performance deficits 3-5 performance deficits x 5 + performance deficits ?? Clinical Decision Making: Low Moderate High x Clinical decision making of moderate complexity using standardized patient assessment instrument andmeasurable assessment of functional outcome. 05/07/18 1320 Rehab Evaluation Document Type evaluation Total Evaluation Minutes, Occupational Therapy 35 Patient Effort excellent General Information Patient Profile Review yes Patient/Family/Caregiver Comments/Observations I'll feel better if I can get out of this bed. General Observations of Patient Semi reclined in bed, agreeable to OT session Pertinent History of Current Problem Jaciel Blevins is a 57 y.o. male who presented with painless jaundice and a mass in the HOP now s/p robotic whipple Hearing Precautions/Limitations WFL Precautions/Restrictions fall (Drain, log roll, DYSLEXIA TEACHER) Living Environment Patient population Adult Living Environment Living Environment Comment Lives with his , she is available for a week upon discharge, multilevel home with shower stall. 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 Vision Assessment/Intervention Additional Documentation (WFL) Cognitive Assessment/Intervention Additional Documentation Cognitive Assessment Interventions (Group) Cognitive Assessment Interventions Behavior/Mood Observations (Cognitive) alert;cooperative;WNL/WFL;behavior appropriate to situation Orientation Status (Cognitive) oriented x 4 Follows Commands/Answers Questions (Cognitive) 100% of the time Pain Scale/Rating Pain Assessment Scale Numbers (Numeric Rating Pain Scale) Pain Level 0 ROM (Range of Motion) Additional Documentation (BUEs,BLEs WFL) MMT (Manual Muscle Testing) Additional Documentation (BUEs, BLEs WFL) Mobility Assessment/Training Additional Documentation Bed Mobility Assessment/Treatment (Group);Transfer Assessment/Treatment (Group);Gait Assessment/Treatment (Group) Bed Mobility Assessment/Treatment Comment (Bed Mobility) Supine>edge of bed w/cues for log roll Transfer Assessment/Treatment [place] (Sit-Stand Transfers) supervision required [place] (Stand-Sit Transfers) supervision required [place]-Gnp Assistive Device (Transfers) rolling walker Comment (Transfers) limited by multiple lines and drains Gait Assessment/Treatment [place] (Gait) supervision required;verbal cues required Assistive Device (Gait) rolling walker Distance in Feet (Gait) 350' Comment (Gait) Enjoys being up and moving, cues to be more upright, felt better after. ADL Assessment/Intervention Additional Documentation Lower Body Dressing Assessment/Training (Group);Bathing Assessment/Training(Group) Bathing Assessment/Training Comment (Bathing) Patient washed up prior to my arrival, assist with lines Lower Body Dressing Assessment/Training Comment (LB Dressing) supervision for donning pants due to lines, able to reach feet for managing socks Plan of Care Review Plan Of Care Reviewed With patient Clinical Impression Therapy Frequency evaluation only Anticipated Discharge Disposition home with assist Plan of Care - Sera Crenshaw RN - 05/07/2018 2:14 AM EST Problem: Patient Care Overview Goal: Plan of Care Review Outcome: Ongoing (Interventions Implemented as Appropriate) 05/06/182129 Coping/Psychosocial Plan Of Care Reviewed With patient OUTCOME EVALUATION NOTE: OUTCOME SUMMARY: A&Ox4, VSS with some lower end BPs. UOP via rivers adequate. No bm this shift. NGT to LCWS, flushed frequently, minimal output noted, will continue to monitor. ELPIDIO drain dressing completely saturatedupon initial head to toe assessment, changed and noted to be CDI as of 0145, will continue to monitor. ELPIDIO drain putting out moderate amounts of serosanguineous drainage. Pt ambulated in the hallway x1 with SBA, tolerated very well. Some reports of pain with movement and activity, managed well with DYSLEXIA TEACHER. Resting between care. Update 0430 ELPIDIO dressing saturated with serosanguineous drainage, dressing and gown changed. NGT flushed x2, air instilled into blue port, was clogged due to drainage thickness, 400mL of dark green drainage out after second flush, will continue to monitor. PLAN MOVING FORWARD: Promote OOB and ambulation, monitor and manage pain, monitor drain sites. INDIVIDUALIZED FALL PREVENTION INTERVENTIONS: [place] Risk ? Patient-specific fall risk factors per assessment: [current deficits]:?57 y.o post-whipple procedure with tubes/drains, actively infusing PIV, pain, opioids for pain, and generalized weakness. ? Assistance [level of assistance required for transfers and ambulation]:?SBA w FWW ? Supervision [direct monitoring required during toileting and ADLs]:?Eyes on ? Surveillance [continuous indirect monitoring]:?Bed/chair alarm, yellow fall band, NKE at bedside,purposeful rounding, environmental modification (floor free of clutter, tubing secured), bed in low position, lightening adjusted for task/safety, nonskid slippers when out of bed, wheels locked, call light in reach, upper side-rails raised X2, ID band on. ? Patient-specific fall prevention interventions for sensory deficits provided, if applicable: [X] N/A ? CPG GOAL OUTCOME EVALUATION: Goal: Individualization & Mutuality Outcome: Ongoing (Interventions Implemented as Appropriate) 05/06/18 1749 Individualization Patient Specific Goals Ambulate TID Mutuality/Individual Preferences What Questions Do You Have About Your Health or Care? No, not at this time Goal: Fall Prevention-Safe Patient Handling Outcome: Ongoing (Interventions Implemented as Appropriate) 05/06/18 2130 [place] Fall Risk History of Falling 0 Secondary Diagnosis 15 Ambulatory Aids 15 Intravenous Therapy/Heparin/Saline Lock 20 Gait/Transferring 10 Mental Status 0 Score 60 OTHER [place] Fall Risk High Restraint Interventions Safety Promotion/Fall Prevention activity supervised;fall prevention program maintained;nonskid shoes/slippers when out of bed;safety round/check completed Positioning Body Position independent Activity Activity Type ambulated in lockhart Activity Assistance Provided assistance, stand-by Assistive Device Utilized front-wheel walker Goal: Infection Control Outcome: Ongoing (Interventions Implemented as Appropriate) 05/06/18 2130 Safety Interventions Isolation Precautions standard precautions maintained Infection Prevention rest/sleep promoted;single patient room provided Coping Strategies Supportive Measures active listening utilized;relaxation techniques promoted Goal: Discharge Needs Assessment Outcome: Ongoing (Interventions Implemented as Appropriate) 05/06/18 1747 Discharge Needs Assessment Readmission Within The Last 30 Days no previous admission in last 30 days Goal: Interdisciplinary Rounds/Family Conf Outcome: Ongoing (Interventions Implemented as Appropriate) 05/06/18 1747 Interdisciplinary Rounds/Family Conf Participants nursing;patient;physician Plan of Care - Lizabeth Granado RN - 05/06/2018 6:14 PM EST Problem: Patient Care Overview Goal: Plan of Care Review Outcome: Ongoing (Interventions Implemented as Appropriate) 05/06/18 0830 Coping/Psychosocial Plan Of Care Reviewed With patient;spouse OUTCOME EVALUATION NOTE: ?? OUTCOME SUMMARY: Patient is POD#1 from robotic assisted Whipple Patient is A&O, VSS, patient reports 2/10 pain not requiring any other pain medication besides DYSLEXIA TEACHER. Five laparoscopic sites, JONN w/dermabond, ELPIDIO on the right, leaking around incision site, dressingchanged X1. Rivers in place, (can air lock intermittently, adequate UPO, yellow in color, no bowel movement this shift, no flatus. On sips/chips diet, tolerating well, NGT in place with moderate out putthis shift. ?? PLAN MOVING FORWARD: -Continue w/NGT and flushing -Monitor ELPIDIO dressing site -Monitor Rivers and UOP -Continue w/DYSLEXIA TEACHER ?? INDIVIDUALIZED FALL PREVENTION INTERVENTIONS: High Fall Risk ?? Patient-specific fall risk factors per assessment: [current deficits]: Recent surgery, DYSLEXIA TEACHER, IV tubing and pole, Rivers, and generalized weakness. ?? Assistance [level of assistance required for transfers and ambulation]: AX1 w/FWW ?? Supervision [direct monitoring required during toileting and ADLs]: Hands on ?? Surveillance [continuous indirect monitoring]: Bed/Chair alarm, yellow fall band, NKE at bedside, purposeful rounding, environmental modification (floor free of clutter, tubing secured), bed in low position, lighting adjusted for task/safety, nonskid slippers when out of bed, wheels locked, call lightin reach, upper side-rails raised X2, ID bands on. ?? Patient-specific fall prevention interventions for sensory deficits provided, if applicable: NA ? CPG GOAL OUTCOME EVALUATION: Plan of Care - Lizabeth Granado RN - 05/06/2018 5:47 PM EST Problem: Patient Care Overview Goal: Interdisciplinary Rounds/Family Conf 05/06/18 1747 Interdisciplinary Rounds/Family Conf Participants nursing;patient;physician Plan of Care - Magui De Leon RN - 05/05/2018 10:42 PM EST Problem: Patient Care Overview Goal: Plan of Care Review Outcome: Ongoing (Interventions Implemented as Appropriate) 05/05/182042 Coping/Psychosocial Plan Of Care Reviewed With patient OUTCOME EVALUATION NOTE: OUTCOME SUMMARY: Patient arrived from PACU s/p whipple with ELPIDIO drain, VSS, DYSLEXIA TEACHER in place with good pain control. ELPIDIO dressing leaking at insertion site, drsg changed and reinforced overngiht. PLAN MOVING FORWARD: Assess safety, assess surgical wounds INDIVIDUALIZED FALL PREVENTION INTERVENTIONS: Patient-specific fall risk factors per assessment: [current deficits]: Pain meds, gait limiting equipment, Assistance [level of assistance required for transfers and ambulation]: 1 [place] Supervision [direct monitoring required during toileting and ADLs]: Direct supervision Surveillance [continuous indirect monitoring]: [place], rounding, bed alarm Patient-specific fall prevention interventions for sensory deficits provided, if applicable: NA CPG GOAL OUTCOME EVALUATION: Op Note - Krishna Collazo MD - 05/05/2018 5:53 PM EST [facility] [place] Note Patient Name: Jaciel Blevins : [id number] MR#: [id number] Case Date: 05/05/2018 Surgeon: Surgeon(s) and Role: * Krishna Collazo MD - Primary * Mary Ruiz MD - Resident-Surgeon Ranjan Registered Nurse Chlorine Cells Operator: Elaine Adkins RN Preoperative diagnosis: PANCREAS CANCER Postoperative diagnosis: PANCREAS CANCER Procedure(s) (LRB): ROBOTIC PANCREATECTOMY,WHIPPLE, PARTIAL GASTRECTOMY W/ PANCREATOJEJUNOSTOMY (N/A) MODIFIER ROBOT,DAVINCI XI (N/A) OMENTAL FLAP, INTRA ABDOMINAL (WRVU 6.54) PANCREATIC STENT INSERTION (WRVU 18.28) Findings: There was no evidence of metastatic disease. There was a palpable mass in the head of the pancreas as seen on his prior imaging with no extension into the duodenum or retroperitoneum. The dissection was relatively straightforward. There is no replaced hepatic arterial anatomy. The SMA/uncinate dissection went well. The lateral aspect of the SMA was nicely skeletonized and the IPDA was individually ligated and divided across metal clips and the harmonic scalpel device. The bile duct measured approximately 15 mm. Both indwelling plastic and the biliary stents were removed with the specimen.The pancreas parenchyma was soft. The pancreatic duct was approximately 4 mm in diameter. The specimen was retrieved with an [employer] specimen retrieval bag via the laparoscopic 15 mm port site which was extended 1 cm cranially and 1 cm caudally to accommodate the size of the specimen. A 19 [place]raini Nadeem drain was placed Reconstruction was a retro-mesenteric and to side pancreaticojejunostomy (Blumgart type) with an indwelling 4 [place]raini pancreatic duct stent. The bile duct anastomosis was a Blumgart Georgette choledochojejunostomy. The posterior row was a running 4-0V lock stitch in the anterior row were interrupted 5-0 PDS stitches. Intestinal continuity was restored by passing the jejunum as it exited the duodenal spaceand the retro-mesenteric location upper and anterior to the colon where a side to side, stapled (blue load) gastrojejunostomy was fashioned in the retrogastric location. The common gastroenterotomy wasclosed in 2 layers with an inner layer of 3-0V lock Christina stitch and an outer layer of interrupted2-0 silk Lembert stitches. Through arm line in the right lateral location and positioned into Morison's pouch and then passed posterior to the bile duct anastomosis and then anterior to the pancreatic anastomosis. An omental pedicle flap fashioned out of the falciform ligament was isolated and constructed to be used to cover the GDA and right gastric artery stumps in the alba hepatis dissection. Anesthesia: General Estimated Blood Loss: 100 cc IVF: 2,800 cc UOP: 600 cc Specimens removed during surgery: Order Name Source Comment Collection Info Order Time SPECIMEN TO PATHOLOGY PANCREAS CANCER Common hepatic artery lymph node excision 05/05/2018 11:11 AM Number of tissue samples (in container) 1 Time specimen removed from patient: 11:11 AM SPECIMEN TO PATHOLOGY Yellow - pancreatic neck margin (FROZEN) Blue - vascular groove [place] - [facility] OR 9 ext. [id number] PANCREAS CANCER Head of pancreas, antrum, duodenum resection YES, Please perform frozen section 05/05/2018 1:28 PM Number of tissue samples (in container) 1 Time specimen removed from patient: 1:24 PM SPECIMEN TO PATHOLOGY PANCREAS CANCER Gallbladder excision 05/05/2018 1:37 PM Number of tissue samples (in container) 1 Time specimen removed from patient: 1:37 PM Drains: 19 [place]raini Nadeem drain as above. Surgical Closure: Primary Closure - skin incision is completely closed without any wires, sarah, drains or other devices Disposition: awakened from anesthesia, extubated and taken to the recovery room in a stable condition, having suffered no apparent untoward event. 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 Upfront Whipple resection was recommended for curative intent. Procedure Description: Mr. Blevins was identified in the preoperative holding area. He was then taken to the OR 9, positioned supine, Venodyne boots were placed, general anesthesia was administered and hewas intubated without difficulty. A Rivers catheter and nasogastric tube were then placed. He was then positioned supine in the split leg position with the arms out. His abdomen was prepped with ChloraPrep and draped in the usual sterile fashion. A formal timeout procedure was performed. Pneumoperitoneum was established using the Veress needle and a small stab incision with an 11 blade just below the left subcostal margin (James's point) after quarter percent Marcaine was used to create a local bloc in the subcutaneous tissues. To confirm intraperitoneal placement the 3 click test a nd the drop test was used to indicate successful peritoneal placement. Pneumoperitoneum was achieved with initial low pressures indicating successful peritoneal placement. Once the pressure had reached 15 mmHg we turned our attention to placing the trochars. A 5 mm Optiview port was placed in the left lateral upper abdomen using the 5 mm 0?? laparoscope under direct vision. Laparoscopic exploration revealed the Veress needle to be in place without injury to underlying bowel. The Veress needle was then removed under direct vision and the insufflation was connected to the 5 mm port. Under laparoscopic visualization we then proceeded to place four robotic 8mm ports along a horizontal line just above the umbilicus. The ports were placed approximately 8 cm apart to prevent collisions with the robotic arms. Next, we placed the 15 mm laparoscopic neurology physician assistant port in the right mid rectus position below the robotic trochars and a 5 mm port in the left mid rectus position to allow the laparoscopic surgeon two-handed access. The left upper lateral 5 mm port which had been placed for Optiview access was then exchanged for the air seal port. Once all the ports were placed laparoscopic exploration revealed no evidence of metastatic disease.. We then inserted the liver retractor via the air seal port in the left upper lateral abdomen and positioned the liver retractor to reflect the liver cephalad exposing the alba hepatis and elevating the left lateral section of the liver. The liver retractor was fixed to the left side of the patient's bed using a Shmuel arm. We then positioned the patient in the steep reverse Trendelenburg position and reflected the omentumand transverse colon back down into the mid/lower abdomen to allow the gastrocolic omentum to be somewhat tented. The patient was tilted to the left slightly. We then proceeded to commence the robotic portion of the operation. The da Spencer Xi patient cart wasbrought in and parked at the patient's left side and arm 3 was docked to the periumbilical 8 mm trocar to allow targeting of the remaining robotic arms to proceed. We then docked arm 1 to the right lateral 8 mm trocar, arm to to the right mid/lateral rectus trocar and arm for to the left mid/lateral rectus trocar. Using two surgeon-robotic and laparoscopic technique we began the dissection. We began the operation by taking down the ligament of Treitz. This necessitated reflecting the transverse colon cephalad and with the laparoscopic surgeon manipulating the proximal jejunum, retracting it to the patient's right side we began to take down the attachments of the ligament of Treitz using the Harmonic scalpel device and hook cautery. This allowed the fourth portion of the duodenum to be nicely exposed. We continued to take down all the ligaments as well as the retroperitoneal attachmentsto expose the underlying aorta. The inferior mesenteric vein was identified and retracted laterally to allow the ligament of Treitz/duodenum mobilization to be completed. We then reflected the colon back into its normal location and proceeded to divide the omentum in themidline using the harmonic scalpel device and bipolar cautery. This allowed us to then enter the lesser sac by dividing the gastrocolic ligament and the dissection was carried toward the gastric fundus until we reached the gastroepiploic arcade. Once this was accomplished we were able to then enter the avascular plane by dividing the omentum along the proximal transverse colon it from the colon and extending the dissection between the anterior sheath of the transverse mesocolon and the gas trocolic omentum. This allowed us to follow the middle colic vessels down to the infrapancreatic SMV. With cephalad traction on the pylorus/proximal duodenum we could easily identify the right gastroepiploic vein approaching the gastrocolic trunk at the infra-pancreatic SMV. This dissection was continued to the patient's right side to allow the colonic hepatic flexure to be taken down and the second portion of the duodenum to come into view. With medial traction on the right colon we divided the white line of [place]t and effectively medialized the right colon mobilizing the hepatic flexure completelyas the Catel Braasch maneuver is described. Once this was accomplished we began the Mame maneuver to mobilize the duodenum off the retroperitoneal. Using a Progasper in arm 1to retract the second portion of the duodenum cephalad and medially we took down the retroperitoneal attachments using a combination of hook cautery and the Enseal deviceto expose the underlying IVC. We then proceeded to retract the second/third portion of the duodenum medially to allow the remaining retroperitoneal attachments to be divided and to allow the dissectionfrom the right side to meet up with the dissection from the ligament of Treitz mobilization. Once this was accomplished we could bring the third and fourth portion of the duodenum and proximal jejunum through the retro-mesenteric defect and positioned this into the right upper quadrant/Morison's pouch region. We then identified the proximal jejunum at a point suitable for transection and created a window in the mesentery just beneath the bowel serosa. The proximal jejunum was divided using the [place] stapler (white load). The specimen side of the proximal jejunum and duodenal mesentery wasthen sequentially divided using the Harmonic device, robotic vessel sealer device as well as clips on the staying inside of the mesentery. Next, we turned our attention to the gastric mobilization. We tented the lesser omentum and divided the gastrohepatic ligament. We divided the lesser omentum and the lesser curvature mesentery using Harmonic scalpel device and bipolar cautery. This dissection was then carried through the gastrohepaticligament exposing the lesser sac. The right gastroepiploic arcade which had been identified early onand the dissection was clipped with metal clips and divided using the harmonic scalpel device. At this point we proceeded to divide the stomach making sure that the nasogastric tube was pulled into theesophagus by anesthesia and the stomach was divided using 2 firings of the Alber[place] stapler (green load and a blue load). The transected proximal stomach was reflected into the left upper quadrant and aRay-Oseas was placed over the staple line to assist with retraction. We then turned our attention to the portal dissection. Using a Prograsp in arm 1 we retracted the gallbladder cephalad. The gallbladder was quite thickened and distended consistent with his biliary obstruction. Visualization revealed the common hepatic artery lymph node in its usual location just lateral to the alba hepatis and using hook cautery and the Enseal device we completely resected the common hepatic artery lymph node taking care to expose the adjacent common hepatic artery. The lymph nodewas retrieved through the air seal port and sent to pathology as a permanent specimen. We then proceeded to skeletonize the common hepatic artery, exposing the confluence with the gastroduodenal artery (GDA). The right gastric artery was identified and ligated across Weck clips and divided using the Harmonic device. We then placed vessel loops circumferentially around the proper hepatic artery to allow it to be retracted during the portal dissection exposing the confluence of the right and left hepatic arteries. With the hepatic arterial dissection complete we unroofed the remaining peritoneal attachments alongthe lateral aspect of the alba hepatis exposing the underlying bile duct. During this dissection the lymphoareolar tissues and lymph nodes were retracted caudally with the specimen. The GDA was then ci rcumferentially dissected and exposed to allow it to be ligated across Weck clips and then divided using the Harmonic device. With the GDA divided and the proper hepatic artery retracted using vessel loops medially we exposed the underlying portal vein. We then dissected out the common bile duct retracting the portal vein medially. Once the portal structures were nicely identified We turned our attention to the lateral portal dissection exposing the cystic artery which arose off the right hepatic artery. Cystic artery was ligated and divided across metal clips and the Harmonic device. With lateral traction on the gallbladder infundibulum we could then dissect out the cystic duct and exposed its insertion with the common bile duct. The cystic duct was ligated and divided using clips and the Harmonic device. With the cystic duct and artery divided we proceeded to dissect out the lymph nodes along the lateral portion of the alba hepatis exposing the lateral aspect of the portal vein beneath the hepatic duct. This dissection allowed us to circumferentially exposed the confluence of the CBD and hepatic duct. The bile duct was then divided just proximal to the insertion with the cystic duct. This was accomplished with the robotic scissors. Bile was aspirated and a culture swab was introduced intothe abdomen to obtain a bile duct culture which was sent to microbiology. We then introduced a 4 Bahraini Elizabeth catheter via a 12-gauge angiocatheter through the right lateral abdomen under direct vision and positioned the Elizabeth catheter into the transected proximal hepatic duct. The balloon was inflated to prevent spillage of bile during the remainder of the case. We then turned our attention to the gastrocolic trunk where we had exposed the right gastroepiploic vein as it entered the anterior surface of the SMV. The patient's middle colic vein was preserved intact. We circumferentially exposed the base of the right gastroepiploic vein which was ligated and divided across Weck clips. This allowed the infrapancreatic SMV/portal vein junction to come into view. We exposed the undersurface of the neck of the pancreas it away from the underlying portalvein creating a tunnel between the vein and the neck of the pancreas. We then divided the pancreas using the robotic bipolar scissors and as we approached the location of the pancreatic duct we used sharp dissection with scissors to avoid cautery effect on the pancreatic parenchyma. The duct was divided and it measured and it measured 4 mm. After the pancreatic duct was divided we proceeded with completing the remainder of the pancreatic neck parenchyma transection using cautery and bipolar scissors. We then proceeded to dissect the portal vein off the distal neck/head of the pancreas along its lateral extent exposing both the vein of [place] superiorly and the first jejunal branch inferiorly. With medial traction on the SMV/portal vein we proceeded to expose the lateral aspect of the SMA dividing the uncinate tissue immediately lateral to the SMA using a combination of clips, cautery and the Harmonic device. This dissection effectively skeletonized the lateral aspect of the SMA exposing the inferior pancreaticoduodenal artery (IPDA) which we then sequentially ligated and divided across clips in the Harmonic device. With the inflow completely divided to the specimen we continued the SMA dissection and then ligated and divided the vein of [place] across metal clips at its insertion with the portal vein. The remaining lymphoareolar tissues lateral to the SMA and portal vein were then reflected laterally with the specimen to effectively skeletonize the proximal SMA at its insertion with the aorta. Lymph nodes posterior to the portal vein were then also dissected away from the portal veinwith the specimen which was unable to be completely removed from all its attachments. A specimen retrieval bag was introduced via the laparoscopic 15 mm port and the specimen was placed within the specimen retrieval bag. I then scrubbed back into case to assist with specimen extraction. We left the robot docked to the trocars and extended the 15 mm lap neurology physician assistant port for approximately an additional 3 cm. The specimen was removed from the patient and the GelPoint Mini was inserted into the extraction site, secured to the abdominal wall by rolling the external ring and the gel port was secured to the ring to allow pneumoperitoneum to be re-established. The specimen was inked on the back table per usual protocol using orange ink to bret the SMA/retroperitoneal margin, blue ink to bret the vascular groove and yellow ink to bret the pancreatic neck margin. The specimen was then sent to pathology for a frozen section on the pancreatic neck margin revealed no evidence of malignant cells.. The gallbladder was removed from the liver using hook cautery and extracted through the 15 mm laparoscopic neurology physician assistant port via a Endo Catch specimen retrieval bag. The gallbladder was sent as a separatespecimen. We then proceeded with the reconstruction. With the proximal jejunum in the retromesenteric locationwe create Blumgart end-to-side pancreaticojejunostomy anastomosis in two layers. The outer layer wascreated with 2-0 silk (6 inches in length) stiches which were placed as U-type down through the anterior edge of the pancreatic parenchyma, out the posterior edge and then into the jejunum as full-thickness seromuscular bites. The same stich was then placed back up through the undersurface of the pancreatic neck as a U stitch with the needle still attached. The anastomosis required three 2-0 outer layer stiches. Once the outer row was complete we turned our attention to the psqy-ex-edjegi stitches. An tiny enterotomy was created immediately adjacent to the location of the pancreatic duct using hook cautery. We then placed multiple, circumferential, interrupted 5-0 PDS sutures on an RB-1 needle to create the duct to mucosa inner layer anastomosis. Before tying down the last 5-0 PDS we introduceda 4 Fr pancreatic duct stent into the pancreatic duct and positioned the pigtail aspect of the stentinto the jejunum effectively stenting the pancreaticojejunostomy duct to mucosa anastomosis. Next wecompleted the anterior outer row layer by tying down the 2-0 silk U stitches on the pancreatic parenchyma. The 2-0 silk stitch was then used to place an additional seromuscular bite on the jejunum to allow the jejunum to cover the anterior aspect of the pancreatic anastomosis and these silk stitches were tied in place to complete the pancreatic anastomosis. All the needles were then retrieved from the patient and the needle count was found to be correct. We then turned out attention to the bile duct anastomosis. We created an enterotomy along the antimesenteric aspect of the jejunum approximately 10 cm down stream from the pancreatic anastomosis adjacent to the bile duct. The bile duct lumen measured 15 mm. An end to side choledochojejunostomy anastomosis was created with interrupted 4-0 PDS as a Blumgart-Georgette choledochojejunostomy anastomosis. Next we turned our attention to the gastrojejunostomy anastomosis. The jejunum entering the retro-mesenteric space in the ligament of Treitz region was identified and at a location approximately 40-50 cm downstream from where the jejunum exited the retromesenteric space the jejunum was brought up in an antecolic fashion to lie adjacent to the stomach. Interrupted 2-0 SIlk stiches were used to line upthe jejunum alonside the posterior stomach. We then created the posterior outer row of the anastomosis by running a 2-0 silk as a running Lembert stitch lining up the jejunal serosa to the gastric serosa. Once this was accomplished we removed the gastric staple line using hook cautery to create a large, wide open gastrotomy and then performed a similar enterotomy along the adjacent jejunum. The innerlayer of the anastomosis was created using a 3-0V lock stitch as a running [place] stitch. A second layer of running Lembert type stitches was placed on the anterior with 2-0 Silk an outer layer to complete the anastomosis. The anastomosis was noted to sit nicely without torsion or outflow obstructionat the efferent jejunal limb. With the reconstruction complete we introduced a 19 [place]i Nadeem drain via the most right lateral port site in this location with a drain placed in Morison's pouch and then passed anterior to the bile duct and then brought up anterior to the pancreatic anastomosis effectively draining both anastomoses. The drain was secured to the skin with a 2-0 proline drain stitch. The robot was then undocked from the patient and under laparoscopic inspection the abdomen was irrigated with 2 L of saline. The ports were then removed under laparoscopic direct vision. Hemostasis wasexcellent. The specimen extraction fascia was then reapproximated with a running #1 PDS stiches. The subcutaneous port sites were irrigated with saline and the skin of the port sites was reapproximated with running 4-0 Monocryl subcuticular stitches. Mastisol and Steri-Strips were applied. Mr. Blevins was awakened from anesthesia, extubated in the operating room and taken to the recovery room in hemodynamically stable condition. I was present from start to finish. Infection Bundle used? Yes Pancreas Surgery Infection Bundle: Chlorhexidine shower night before and am of surgery: Yes Chlorhexadine-alcohol skin prep: Yes Preoperative IV antibiotics: Zosyn Redosing antibiotics every 3 hours: Yes Bile duct fluid cultured: Yes Change gloves and new suction and cautery at closure: No Dxngbbsfk-bynuyryom-ctxuxblnft abdominal cavity wash: No Fsagopeas-kwnynxboe-pthmwrczoz wound wash: Yes Attestation: Case Date: 05/05/2018 I was present and I participated during the entire procedure (does not need to include opening and closing). KRISHNA COLLAZO MD 05/05/2018 Brief Op Note - Krishna Collazo MD - 05/05/2018 5:44 PM EST Brief Operative Note Patient Name: Jaciel Blevins : [id number] MR#: [id number] Case Date: 05/05/2018 Surgeon: Surgeon(s) and Role: * Krishna Collazo MD - Primary * Mary Ruiz MD - Resident-Surgeon Ranjan Preoperative diagnosis: PANCREAS CANCER Postoperative diagnosis: PANCREAS CANCER Procedure(s) (LRB): ROBOTIC PANCREATECTOMY,WHIPPLE, PARTIAL GASTRECTOMY W/ PANCREATOJEJUNOSTOMY (N/A) MODIFIER ROBOT,DAVINCI XI (N/A) OMENTAL FLAP, INTRA ABDOMINAL (WRVU 6.54) PANCREATIC STENT INSERTION (WRVU 18.28) Anesthesia: General Findings: Pancreatic head mass s/p robotic Whipple Complications: None Estimated Blood Loss: 100ml Specimens removed during surgery: Order Name Source Comment Collection Info Order Time SPECIMEN TO PATHOLOGY PANCREAS CANCER Common hepatic artery lymph node excision 05/05/2018 11:11 AM Number of tissue samples (in container) 1 Time specimen removed from patient: 11:11 AM SPECIMEN TO PATHOLOGY Yellow - pancreatic neck margin (FROZEN) Blue - vascular groove [place] - [facility]MA OR 9 ext. [id number] PANCREAS CANCER Head of pancreas, antrum, duodenum resection YES, Please perform frozen section 05/05/2018 1:28 PM Number of tissue samples (in container) 1 Time specimen removed from patient: 1:24 PM SPECIMEN TO PATHOLOGY PANCREAS CANCER Gallbladder excision 05/05/2018 1:37 PM Number of tissue samples (in container) 1 Time specimen removed from patient: 1:37 PM Fluids: 2800ml PRBCs: none (See Anesthesia Record/Report for Other Blood Products) Urine Output: 600 mL Drains: JPx1 (around HJ and PJ anastomosis)t Disposition: awakened from anesthesia, extubated and taken to the recovery room in a stable condition, having suffered no apparent untoward event. Condition: doing well without problems (Please see the Surgical Encounter Summary for any Implant and Specimen details pertinent to this patient.) Infection Bundle used? No documented in this encounter Plan of Treatment Upcoming Encounters Date Type Specialty Care Team Description 02/23/2022 Office Visit Hematology and Oncology Gigi Sosa MD [facility] [place] [address] Ebonie Gordon, EDUCATIONAL THERAPIST [address] [place] [address] [place] [address] documented as of this encounter Procedures Procedure Name Priority Date/Time Associated Comments Diagnosis HEMOGRAM Routine 05/12/2018 12:55 Results for this AM EST procedure are i n the results section. DIFFERENTIAL, AUTOMATED Routine 05/12/2018 12:55 Results for this AM EST procedure are i n the results section. CBC (WITH DIFF) Routine 05/12/2018 12:55 AM EST PHOSPHORUS Routine 05/12/2018 12:55 Results for this AM EST procedure are i n the results section. MAGNESIUM Routine 05/12/2018 12:55 Results for this AM EST procedure are i n the results section. COMPREHENSIVE METABOLIC Routine 05/12/2018 12:55 Results for this PANEL (NON-FASTING) AM EST procedur e are in the results section. HEMOGRAM Routine 05/11/2018 2:03 Results for this AM EST procedure are i n the results section. DIFFERENTIAL, AUTOMATED Routine 05/11/2018 2:03 R esults for this AM EST procedure are i n the results section. CBC (WITH DIFF) Routine 05/11/2018 2:03 AM EST PHOSPHORUS Routine 05/11/2018 2:03 Results for this AM EST procedure are i n the results section. MAGNESIUM Routine 05/11/2018 2:03 Results for this AM EST procedure are i n the results section. COMPREHENSIVE METABOLIC Routine 05/11/2018 2:03 R esults for this PANEL (NON-FASTING) AM EST procedur e are in the results section. POCT GLUCOSE Routine 05/10/2018 11:32 Results for this AM EST procedure are i n the results section. POCT GLUCOSE Routine 05/10/2018 7:08 Results for this AM EST procedure are i n the results section. POCT GLUCOSE Routine 05/10/2018 3:21 Results for this AM EST procedure are i n the results section. AMYLASE LEVEL BODY FLUID Routine 05/10/2018 2:23 Results for this AM EST procedure are i n the results section. HEMOGRAM Routine 05/10/2018 1:43 Results for this AM EST procedure are i n the results section. DIFFERENTIAL, AUTOMATED Routine 05/10/2018 1:43 R esults for this AM EST procedure are i n the results section. CBC (WITH DIFF) Routine 05/10/2018 1:43 AM EST PHOSPHORUS Routine 05/10/2018 1:43 Results for this AM EST procedure are i n the results section. MAGNESIUM Routine 05/10/2018 1:43 Results for this AM EST procedure are i n the results section. AMYLASE Routine 05/10/2018 1:43 Results for this AM EST procedure are i n the results section. COMPREHENSIVE METABOLIC Routine 05/10/2018 1:43 R esults for this PANEL (NON-FASTING) AM EST procedur e are in the results section. POCT GLUCOSE Routine 05/09/2018 11:31 Results for this PM EST procedure are i n the results section. POCT GLUCOSE Routine 05/09/2018 7:48 Results for this PM EST procedure are i n the results section. POCT GLUCOSE Routine 05/09/2018 4:21 Results for this PM EST procedure are i n the results section. POCT GLUCOSE Routine 05/09/2018 11:55 Results for this AM EST procedure are i n the results section. POCT GLUCOSE Routine 05/09/2018 7:33 Results for this AM EST procedure are i n the results section. AMYLASE LEVEL BODY FLUID Routine 05/09/2018 6:13 Results for this AM EST procedure are i n the results section. POCT GLUCOSE Routine 05/09/2018 4:14 Results for this AM EST procedure are i n the results section. HEMOGRAM Routine 05/09/2018 1:43 Results for this AM EST procedure are i n the results section. DIFFERENTIAL, AUTOMATED Routine 05/09/2018 1:43 R esults for this AM EST procedure are i n the results section. CBC (WITH DIFF) Routine 05/09/2018 1:43 AM EST PHOSPHORUS Routine 05/09/2018 1:43 Results for this AM EST procedure are i n the results section. MAGNESIUM Routine 05/09/2018 1:43 Results for this AM EST procedure are i n the results section. AMYLASE Routine 05/09/2018 1:43 Results for this AM EST procedure are i n the results section. COMPREHENSIVE METABOLIC Routine 05/09/2018 1:43 R esults for this PANEL (NON-FASTING) AM EST procedur e are in the results section. POCT GLUCOSE Routine 05/09/2018 12:12 Results for this AM EST procedure are i n the results section. POCT GLUCOSE Routine 05/08/2018 7:56 Results for this PM EST procedure are i n the results section. POCT GLUCOSE Routine 05/08/2018 4:29 Results for this PM EST procedure are i n the results section. POCT GLUCOSE Routine 05/08/2018 11:40 Results for this AM EST procedure are i n the results section. POCT GLUCOSE Routine 05/08/2018 7:53 Results for this AM EST procedure are i n the results section. AMYLASE LEVEL BODY FLUID Routine 05/08/2018 5:19 Results for this AM EST procedure are i n the results section. POCT GLUCOSE Routine 05/08/2018 3:35 Results for this AM EST procedure are i n the results section. HEMOGRAM Routine 05/08/2018 1:14 Results for this AM EST procedure are i n the results section. DIFFERENTIAL, AUTOMATED Routine 05/08/2018 1:14 R esults for this AM EST procedure are i n the results section. CBC (WITH DIFF) Routine 05/08/2018 1:14 AM EST PHOSPHORUS Routine 05/08/2018 1:14 Results for this AM EST procedure are i n the results section. MAGNESIUM Routine 05/08/2018 1:14 Results for this AM EST procedure are i n the results section. AMYLASE Routine 05/08/2018 1:14 Results for this AM EST procedure are i n the results section. COMPREHENSIVE METABOLIC Routine 05/08/2018 1:14 R esults for this PANEL (NON-FASTING) AM EST procedur e are in the results section. POCT GLUCOSE Routine 05/07/2018 11:46 Results for this PM EST procedure are i n the results section. POCT GLUCOSE Routine 05/07/2018 8:02 Results for this PM EST procedure are i n the results section. POCT GLUCOSE Routine 05/07/2018 3:55 Results for this PM EST procedure are i n the results section. POCT GLUCOSE Routine 05/07/2018 11:27 Results for this AM EST procedure are i n the results section. AMYLASE LEVEL BODY FLUID Routine 05/07/2018 6:41 Results for this AM EST procedure are i n the results section. HEMOGRAM Routine 05/07/2018 1:36 Results for this AM EST procedure are i n the results section. DIFFERENTIAL, AUTOMATED Routine 05/07/2018 1:36 R esults for this AM EST procedure are i n the results section. CBC (WITH DIFF) Routine 05/07/2018 1:36 AM EST PHOSPHORUS Routine 05/07/2018 1:36 Results for this AM EST procedure are i n the results section. MAGNESIUM Routine 05/07/2018 1:36 Results for this AM EST procedure are i n the results section. AMYLASE Routine 05/07/2018 1:36 Results for this AM EST procedure are i n the results section. COMPREHENSIVE METABOLIC Routine 05/07/2018 1:36 R esults for this PANEL (NON-FASTING) AM EST procedur e are in the results section. AMYLASE LEVEL BODY FLUID Routine 05/06/2018 4:59 Results for this AM EST procedure are i n the results section. HEMOGRAM Routine 05/06/2018 1:24 Results for this AM EST procedure are i n the results section. DIFFERENTIAL, AUTOMATED Routine 05/06/2018 1:24 R esults for this AM EST procedure are i n the results section. CBC (WITH DIFF) Routine 05/06/2018 1:24 AM EST PHOSPHORUS Routine 05/06/2018 1:24 Results for this AM EST procedure are i n the results section. MAGNESIUM Routine 05/06/2018 1:24 Results for this AM EST procedure are i n the results section. AMYLASE Routine 05/06/2018 1:24 Results for this AM EST procedure are i n the results section. COMPREHENSIVE METABOLIC Routine 05/06/2018 1:24 R esults for this PANEL (NON-FASTING) AM EST procedur e are in the results section. HEMOGRAM STAT 05/05/2018 6:32 Results for this PM EST procedure are i n the results section. COMPREHENSIVE METABOLIC STAT 05/05/2018 6:32 R esults for this PANEL (NON-FASTING) PM EST procedur e are in the results section. BLOOD GAS 2 ARTERIAL Routine 05/05/2018 2:02 Resu lts for this PM EST procedure are i n the results section. SPECIMEN TO PATHOLOGY Routine 05/05/2018 1:38 Res ults for this PM EST procedure are i n the results section. SPECIMEN TO PATHOLOGY STAT 05/05/2018 1:28 Res ults for this PM EST procedure are i n the results section. ANAEROBIC CULTURE Routine 05/05/2018 11:57 Result s for this AM EST procedure are i n the results section. BODY FLUID CULTURE, AEROBIC Routine 05/05/2018 11:57 & ANAEROBIC AM EST BODY FLUID CULTURE, AEROBIC Routine 05/05/2018 11:57 Results for this AM EST procedure are i n the results section. SPECIMEN TO PATHOLOGY Routine 05/05/2018 11:12 Re sults for this AM EST procedure are i n the results section. SURGICAL PATHOLOGY REPORT Routine 05/05/2018 11:11 Results for this AM EST procedure are i n the results section. BLOOD GAS 2 ARTERIAL Routine 05/05/2018 10:14 Res ults for this AM EST procedure are i n the results section. BLOOD GAS 2 ARTERIAL Routine 05/05/2018 10:14 Res ults for this AM EST procedure are i n the results section. MODIFIER ROBOT,DAVINCI XI 05/05/2018 7:36 PANCREAS CAN CER AM EST ROBOTIC 05/05/2018 7:36 PANCREAS CANCER PANCREATECTOMY,WHIPPLE, AM EST PARTIAL GASTRECTOMY W/ PANCREATOJEJUNOSTOMY ABORH RECHECK STATUS STAT 05/05/2018 6:07 Resu lts for this AM EST procedure are i n the results section. TYPE AND SCREEN, SDP STAT 05/05/2018 6:07 (FUTURE [place]GERY, [facility] [place] AM EST DAY PROGRAM ONLY) ABO/RH TYPING STAT 05/05/2018 6:07 Results for this AM EST procedure are i n the results section. ANTIBODY SCREEN STAT 05/05/2018 6:07 Results f or this AM EST procedure are i n the results section. documented in this encounter Results Prealbumin (06/03/2018 2:39 PM EST) athologist Signature Prealbumin 25 20 - [address] [facility] mg/dL [facility] Comment: Prealbumin levels are generally [...] Organization Address City/State/[place] [address] (ABNORMAL) Comprehensive metabolic panel (non-fasting) (06/03/2018 2:39 PM EST) athologist Signature Glucose Lvl 99 65 - [address] [facility] mg/dL [facility] Comment: Diabetes: >=200 mg/dL plus symp toms BUN 22 (H) 10 - 20 mg/dL [facility] Creatinine 0.82 0.80 - 1.50 mg/dL [facility] Sodium 140 135 - 145 mmol/L [facility] Potassium 4.5 3.5 - 5.0 mmol/L [facility] Comment: Please note: ??Patients with WBC >100,00 0 may have falsely elevated Potassium levels. ??For accurate Potassium quantif ication in these patients send serum separator tube (gold top) for subsequent determinations. ??Contact the Clinical Chemistry Laboratory if there are any qu estions. Chloride 102 98 - 107 mmol/L [facility] CO2 28 22 - 31 mmol/L [facility] Anion Gap 10 5 - 15 mmol/L [facility] Calcium 9.2 8.5 - 10.5 mg/dL [facility] Total Protein 7.3 6.1 - 8.0 gm/dL [facility] Albumin 3.8 3.2 - 5.2 gm/dL [facility] AST 25 0 - 39 unit/L [facility] ALT 37 0 - 55 unit/L [facility] Alk Phos 75 40 - 120 unit/L [facility] Total Bilirubin 1.1 0.2 - 1.3 mg/dL [facility] Estimated GFR 97 >=60 mL/min/1.73 m?? [facility] Comment: The eGFR was calculated using the CKD-EP I equation. As with all creatinine based estimates of kidney function, eGFR values calculated with the CKD-EPI equation are not accurate in patients wi th acute kidney failure, extremes of body mass or the acutely ill. [email or web address] eGFR 113 >=60 mL/min/1.73 m?? [facility] Comment: The eGFR was calculated using the CKD-EP I equation. As with all creatinine based estimates of kidney function, eGFR values calculated with the CKD-EPI equation are not accurate in patients wi th acute kidney failure, extremes of body mass or the acutely ill. [email or web address] Specimen Anatomical Collection Method Collection Time Receive d Time (Source) Location / / Volume Laterality Blood specimen 06/03/2018 2:39 PM 019 2:45 (specimen) EST PM EST Resulting Agency Comment Spec In Lab Katharina Bailey APRN CHEMISTRY ORDERABLES Performing Organization Address City/State/ZIP Code Phon e Number [place] [id number] (ABNORMAL) Differential, Automated (05/12/2018 12:55 AM EST) [facility] gist Method Time Signature Neutrophils % 70.0 % [facility] Neutr Abs (ANC) 9.02 (H) 1.70 - [facility] 6.[address] [facility] x10(3)/[facility] LABORATORY Lymphocytes % 14.8 % [facility] Lymphocytes Abs 1.9 0.9 - 3.[address] [facility] x10(3)/[facility] LABORATORY Monocytes % 9.5 % [facility] Monocyte Abs 1.2 (H) 0.3 - 0.[address] [facility] x10(3)/[facility] LABORATORY Eosinophils % 2.3 % [facility] Eosinophils Abs 0.3 0.0 - 0.[address] [facility] x10(3)/[facility] LABORATORY Basophils % 0.7 % [facility] Basophils Abs 0.1 0.0 - 0.[address] [facility] x10(3)/[facility] LABORATORY Immature Gran % 2.70 % [facility] Comment: Immature granulocytes(IG's)percentage an d absolute count will include metamyelocytes, myelocytes, and promyelo cytes. Blood smears from CBCs yielding IG's will be scanned manually for concor dance. If this scan disagrees with the automated IG or if promyelocytes are not ed, a manual differential will be performed. [place] Gran Abs 0.35 (H) 0.00 - 0.04 x10(3)/[facility] LABORATORY Specimen Anatomical Collection Method Collection Time Receive d Time (Source) Location / / Volume Laterality Blood specimen 05/12/2018 12:55 9 1:05 (specimen) AM EST AM EST Resulting Agency Comment Spec In Lab Mary Ruiz MD HEMATOLOGY ORDERABLES Performing Organization Address City/State/[place] [address] (ABNORMAL) Hemogram (05/12/2018 12:55 AM EST) Analysis Performed At Patho logist Time Signature WBC 12.9 (H) 4.0 - 9.[address] [facility] x10(3)/[facility] LABORATORY RBC 3.13 (L) 4.58 - [facility] 5.[address] [facility] x10(6)/[facility] LABORATORY Hemoglobin 10.3 (L) 13.7 - [facility] 16.[facility] gm/dL [facility] Hematocrit 29.7 (L) 40.5 - [facility] 48.5 % [facility] MCV 94.9 (H) 82.9 - [facility] 93.1 [facility] MCH 32.9 (H) 27.5 - [facility] 32.1 pg [facility] MCHC 34.7 32.0 - [facility] 35.7 gm/dL [facility] Platelets 382 (H) 145 - 357 [facility] LABORATORY RDWSD 61.4 (H) 36.0 - [facility] 45.0 [facility] LABORATORY RDWCV 18.0 (H) 11.4 - [facility] 13.8 % [facility] LABORATORY MPV 9.2 7.6 - 12.9 [facility] LAB[facility]ATORY nRBC % Auto 0.0 % [facility] LABORATORY nRBC Abs Auto 0.000 0.000 - [facility] 0.[address] [facility] x10(3)/[facility] LABORATORY Specimen Anatomical Collection Method Collection Time Receive d Time (Source) Location / / Volume Laterality Blood specimen 05/12/2018 12:55 9 1:05 (specimen) AM EST AM EST Resulting Agency Comment Spec In Lab Mary Ruiz MD HEMATOLOGY ORDERABLES Performing Organization Address City/[facility]/ZIP Code Phon e Number [address] Magnesium (05/12/2018 12:55 AM EST) P athologist Signature Magnesium 0.83 0.69 - 1.[address] [facility] mmol/L [facility] LABORATORY Specimen Anatomical Collection Method Collection Time Receive d Time (Source) Location / / Volume Laterality Blood specimen 05/12/2018 12:55 9 1:05 (specimen) AM EST AM EST Resulting Agency Comment Spec In Lab Krsihna Collazo MD CHEMISTRY ORDERABLES Performing Organization Address City/[facility]/ZIP Code Phon e Number [address] Phosphorus (05/12/2018 12:55 AM EST) P athologist Signature Phosphorus 2.6 2.5 - 4.5 [facility] LABORATORY Specimen Anatomical Collection Method Collection Time Receive d Time (Source) Location / / Volume Laterality Blood specimen 05/12/2018 12:55 9 1:05 (specimen) AM EST AM EST Resulting Agency Comment Spec In Lab Krishna Collazo MD CHEMISTRY ORDERABLES Performing Organization Address City/[facility]/ZIP [facility] Phon e Number [address] (ABNORMAL) Comprehensive metabolic panel (non-fasting) (05/12/2018 12:55 AM EST) P athologist Signature Glucose Lvl 109 65 - [address] [facility] mg/dL [facility] LABORATORY Comment: Diabetes: >=200 mg/dL plus symp toms BUN 16 10 - 20 mg/dL [facility] LABORATORY Creatinine 0.78 (L) 0.80 - 1.50 mg/dL [facility] LABORATORY Sodium 137 135 - 145 mmol/L [facility] LABORATORY Potassium 3.9 3.5 - 5.0 mmol/L [facility] LABORATORY Comment: Please note: ??Patients with WBC >100,00 0 may have falsely elevated Potassium levels. ??For accurate Potassium quantif ication in these patients send serum separator tube (gold top) for subsequent determinations. ??Contact the Clinical Chemistry Laboratory if there are any qu estions. Chloride 104 98 - 107 mmol/L [facility] LABORATORY CO2 22 22 - 31 mmol/L [facility] LABORATORY Anion Gap 11 5 - 15 mmol/L [facility] LABORATORY Calcium 8.2 (L) 8.5 - 10.5 mg/dL [facility] LABORATORY Total Protein 5.8 (L) 6.1 - 8.0 gm/dL [facility] LABORATORY Albumin 2.5 (L) 3.2 - 5.2 gm/dL [facility] LABORATORY AST 41 (H) 0 - 39 unit/L [facility] LABORATORY ALT 71 (H) 0 - 55 unit/L [facility] LABORATORY Alk Phos 112 40 - 120 unit/L [facility] LABORATORY Total Bilirubin 3.8 (H) 0.2 - 1.3 mg/dL [facility] LABORATORY Estimated GFR 100 >=60 mL/min/1.73 m?? [facility] LABORATORY Comment: The eGFR was calculated using the CKD-EP I equation. As with all creatinine based estimates of kidney function, eGFR values calculated with the CKD-EPI equation are not accurate in patients wi th acute kidney failure, extremes of body mass or the acutely ill. [email or web address] eGFR 115 >=60 mL/min/1.73 m?? [facility] LABORATORY Comment: The eGFR was calculated using the CKD-EP I equation. As with all creatinine based estimates of kidney function, eGFR values calculated with the CKD-EPI equation are not accurate in patients wi th acute kidney failure, extremes of body mass or the acutely ill. [email or web address]/[facility] [place] [place] Specimen Anatomical Collection Method Collection Time Receive d Time (Source) Location / / Volume Laterality Blood specimen 05/12/2018 12:55 9 1:05 (specimen) AM EST AM EST Resulting Agency Comment Spec In Lab Krishna Collazo MD CHEMISTRY ORDERABLES Performing Organization Address City/State/[place] [address] (ABNORMAL) Differential, Automated (05/11/2018 2:03 AM EST) [facility] gist Method Time Signature Neutrophils % 75.9 % [facility] LABORATORY Neutr Abs (ANC) 10.60 (H) 1.70 - [facility] 6.[address] [facility] x10(3)/[facility] LABORATORY Lymphocytes % 11.5 % [facility] LABORATORY Lymphocytes Abs 1.6 0.9 - 3.[address] [facility] x10(3)/[facility] LABORATORY Monocytes % 8.6 % [facility] LABORATORY Monocyte Abs 1.2 (H) 0.3 - 0.[address] [facility] x10(3)/[facility] LABORATORY Eosinophils % 1.3 % [facility] LABORATORY Eosinophils Abs 0.2 0.0 - 0.[address] [facility] x10(3)/[facility] LABORATORY Basophils % 0.6 % [facility] LABORATORY Basophils Abs 0.1 0.0 - 0.[address] [facility] x10(3)/[facility] LABORATORY Immature Gran % 2.10 % [facility] LABORATORY Comment: Immature granulocytes(IG's)percentage an d absolute count will include metamyelocytes, myelocytes, and promyelo cytes. Blood smears from CBCs yielding IG's will be scanned manually for concor dance. If this scan disagrees with the automated IG or if promyelocytes are not ed, a manual differential will be performed. [place] Gran Abs 0.29 (H) 0.00 - 0.04 x10(3)/[facility] LABORATORY Specimen Anatomical Collection Method Collection Time Receive d Time (Source) Location / / Volume Laterality Blood specimen 05/11/2018 2:03 AM 019 2:14 (specimen) EST AM EST Resulting Agency Comment Spec In Lab Mary Ruiz MD HEMATOLOGY ORDERABLES Performing Organization Address City/State/ZIP Code Phon e Number [address] (ABNORMAL) Hemogram (05/11/2018 2:03 AM EST) Analysis Performed At Patho logist Time Signature WBC 14.0 (H) 4.0 - 9.5 [facility] x[facility](3[facility] LABORATORY RBC 3.19 (L) 4.58 - [facility] 5.[address] [facility] x10(6)/[facility] LABORATORY Hemoglobin 10.2 (L) 13.7 - [facility] 16.5 gm/dL [facility] LABORATORY Hematocrit 29.3 (L) 40.5 - [facility] 48.5 % [facility] LABORATORY MCV 91.8 82.9 - [facility] 93.1 [facility] LABORATORY MCH 32.0 27.5 - [facility] 32.1 pg [facility] LABORATORY MCHC 34.8 32.0 - [facility] 35.7 gm/dL [facility] LABORATORY Platelets 342 145 - [address] [facility] x10(3)/[facility] LABORATORY RDWSD 58.4 (H) 36.0 - [facility] 45.0 [facility] LABORATORY RDWCV 17.6 (H) 11.4 - [facility] 13.8 % [facility] LABORATORY MPV 9.3 7.6 - 12.9 [facility] LABORATORY nRBC % Auto 0.0 % [facility] LABORATORY nRBC Abs Auto 0.000 0.000 - [facility] 0.[address] [facility] x10(3)/[facility] LABORATORY Specimen Anatomical Collection Method Collection Time Receive d Time (Source) Location / / Volume Laterality Blood specimen 05/11/2018 2:03 AM 019 2:14 (specimen) EST AM EST Resulting Agency Comment Spec In Lab Mary Ruiz MD HEMATOLOGY ORDERABLES Performing Organization Address City/State/[place] [address] Magnesium (05/11/2018 2:03 AM EST) athologist Signature Magnesium 0.80 0.69 - 1.[address] [facility] mmol/L [facility] LABORATORY Specimen Anatomical Collection Method Collection Time Receive d Time (Source) Location / / Volume Laterality Blood specimen 05/11/2018 2:03 AM 019 2:14 (specimen) EST AM EST Resulting Agency Comment Spec In Lab Krishna Collazo MD CHEMISTRY ORDERABLES Performing Organization Address City/[facility]/ZIP Code Phon e Number [address] Phosphorus (05/11/2018 2:03 AM EST) athologist [facility] Phosphorus 3.9 2.5 - 4.[address] [facility] mg/dL [facility] LABORATORY Specimen Anatomical Collection Method Collection Time Receive d Time (Source) Location / / Volume Laterality Blood specimen 05/11/2018 2:03 AM 019 2:14 (specimen) EST AM EST Resulting Agency Comment Spec In Lab Krishna Collazo MD CHEMISTRY ORDERABLES Performing Organization Address City/[facility] [place] [address] (ABNORMAL) Comprehensive metabolic panel (non-fasting) (05/11/2018 2:03 AM EST) athologist [facility] Glucose Lvl 106 65 - [address] [facility] mg/dL [facility] LABORATORY Comment: Diabetes: >=200 mg/dL plus symp toms BUN 14 10 - 20 mg/dL [facility] LABORATORY Creatinine 0.75 (L) 0.80 - 1.50 mg/dL [facility] LABORATORY Sodium 136 135 - 145 mmol/L [facility] LABORATORY Potassium 4.0 3.5 - 5.0 mmol/L [facility] LABORATORY Comment: Please note: ??Patients with WBC >100,00 0 may have falsely elevated Potassium levels. ??For accurate Potassium quantif ication in these patients send serum separator tube (gold top) for subsequent determinations. ??Contact the Clinical Chemistry Laboratory if there are any qu estions. Chloride 104 98 - 107 mmol/L [facility] LABORATORY CO2 21 (L) 22 - 31 mmol/L [facility] LABORATORY Anion Gap 11 5 - 15 mmol/L [facility] LABORATORY Calcium 8.2 (L) 8.5 - 10.5 mg/dL [facility] LABORATORY Total Protein 5.6 (L) 6.1 - 8.0 gm/dL [facility] LABORATORY Albumin 2.2 (L) 3.2 - 5.2 gm/dL [facility] LABORATORY AST 47 (H) 0 - 39 unit/L [facility] LABORATORY ALT 78 (H) 0 - 55 unit/L [facility] LABORATORY Alk Phos 104 40 - 120 unit/L [facility] LABORATORY Total Bilirubin 4.1 (H) 0.2 - 1.3 mg/dL [facility] LABORATORY Estimated GFR 101 >=60 mL/min/1.73 m?? [facility] LABORATORY Comment: The eGFR was calculated using the CKD-EP I equation. As with all creatinine based estimates of kidney function, eGFR values calculated with the CKD-EPI equation are not accurate in patients wi th acute kidney failure, extremes of body mass or the acutely ill. [email or web address]/[facility] [place] [place]f eGFR 117 >=60 mL/min/1.73 m?? [facility] LABORATORY Comment: The eGFR was calculated using the CKD-EP I equation. As with all creatinine based estimates of kidney function, eGFR values calculated with the CKD-EPI equation are not accurate in patients wi th acute kidney failure, extremes of body mass or the acutely ill. [email or web address]/[facility] [place] CITYnkf Specimen Anatomical Collection Method Collection Time Receive d Time (Source) Location / / Volume Laterality Blood specimen 05/11/2018 2:03 AM 019 2:14 (specimen) EST AM EST Resulting Agency Comment Spec In Lab Krishna Collazo MD CHEMISTRY ORDERABLES Performing Organization Address City/State/[place] [address] POCT Glucose (05/10/2018 11:32 AM EST) athologist Signature POC Glucose 107 65 - 199 [facility] mg/dL [facility] LABORATORY Comment: Supplemental ranges: <140 mg/dL before meals <180 mg/dL all other times of the day Specimen Anatomical Collection Method Collection Time Receive d Time (Source) Location / / Volume Laterality Blood specimen 05/10/2018 11:32 9 (specimen) AM EST 11:32 AM EST Krishna Collazo MD POINT OF CARE TEST ORDERABLE S Performing Organization Address City/State/ZIP Code Phon e Number [address] POCT Glucose (05/10/2018 7:08 AM EST) athologist Signature POC Glucose 118 65 - 199 [facility] mg/dL [facility] LABORATORY Comment: Supplemental ranges: <140 mg/dL before meals <180 mg/dL all other times of the day Specimen Anatomical Collection Method Collection Time Receive d Time (Source) Location / / Volume Laterality Blood specimen 05/10/2018 7:08 AM 019 7:08 (specimen) EST AM EST Krishna Collazo MD POINT OF CARE TEST ORDERABLE S Performing Organization Address City/State/ZIP Code Phon e Number [address] POCT Glucose (05/10/2018 3:21 AM EST) athologist Signature POC Glucose 103 65 - 199 [facility] mg/dL [facility] LABORATORY Comment: Supplemental ranges: <140 mg/dL before meals <180 mg/dL all other times of the day Specimen Anatomical Collection Method Collection Time Receive d Time (Source) Location / / Volume Laterality Blood specimen 05/10/2018 3:21 AM 019 3:21 (specimen) EST AM EST Krishna Collazo MD POINT OF CARE TEST ORDERABLE S Performing Organization Address City/State/[place] [address] Amylase Level Body Fluid ELPIDIO Drain (05/10/2018 2:23 AM EST) P athologist Signature Amylase, BF 13 unit/L [facility] LABORATORY Comment: No reference range is available for the specimen type submitted. ??The performance of this assay for the submit ana type has not been validated and results should be interpreted accordingl y and with regard to the patient's clinical status. Amylase BF Type ELPIDIO Drain [facility] LABORATORY Specimen Anatomical Collection Method Collection Time Receive d Time (Source) Location / / Volume Laterality ELPIDIO Drain 05/10/2018 2:23 AM 9 3:50 EST AM EST Resulting Agency Comment Spec In Lab Krishna Collazo MD BODY FLUIDS AND STOOLS ORDER GEE Performing Organization Address City/State/[place] [address] (ABNORMAL) Differential, Automated (05/10/2018 1:43 AM EST) Patholo gist Method Time Signature Neutrophils % 70.9 % [facility] LABORATORY Neutr Abs (ANC) 7.03 (H) 1.70 - [facility] 6.[address] [facility] x10(3)/[facility] LABORATORY Lymphocytes % 13.7 % [facility] LABORATORY Lymphocytes Abs 1.4 0.9 - 3.[address] [facility] x10(3)/[facility] LABORATORY Monocytes % 9.8 % [facility] LABORATORY Monocyte Abs 1.0 (H) 0.3 - 0.[address] [facility] x10(3)/[facility] LABORATORY Eosinophils % 3.1 % [facility] LABORATORY Eosinophils Abs 0.3 0.0 - 0.[address] [facility] x10(3)/[facility] LABORATORY Basophils % 0.9 % [facility] LABORATORY Basophils Abs 0.1 0.0 - 0.[address] [facility] x10(3)/[facility] LABORATORY Immature Gran % 1.60 % [facility] LABORATORY Comment: Immature granulocytes(IG's)percentage an d absolute count will include metamyelocytes, myelocytes, and promyelo cytes. Blood smears from CBCs yielding IG's will be scanned manually for concor dance. If this scan disagrees with the automated IG or if promyelocytes are not ed, a manual differential will be performed. [place] Gran Abs 0.16 (H) 0.00 - 0.04 x10(3)/[facility] LABORATORY Specimen Anatomical Collection Method Collection Time Receive d Time (Source) Location / / Volume Laterality Blood specimen 05/10/2018 1:43 AM 019 1:59 (specimen) EST AM EST Resulting Agency Comment Spec In Lab Mary Ruiz MD HEMATOLOGY ORDERABLES Performing Organization Address City/State/[place] [address] (ABNORMAL) Hemogram (05/10/2018 1:43 AM EST) Analysis Performed At Patho logist Time Signature WBC 9.9 (H) 4.0 - 9.[address] [facility] x10(3)/[facility] LABORATORY RBC 3.11 (L) 4.58 - [facility] 5.[address] [facility] x10(6)/[facility] LABORATORY Hemoglobin 9.9 (L) 13.7 - [facility] 16.5 gm/dL [facility] LABORATORY Hematocrit 28.5 (L) 40.5 - [facility] 48.5 % [facility] LABORATORY MCV 91.6 82.9 - [facility] 93.1 [facility] LABORATORY MCH 31.8 27.5 - [facility] 32.1 pg [facility] LABORATORY MCHC 34.7 32.0 - [facility] 35.7 gm/dL [facility] LABORATORY Platelets 325 145 - [address] [facility] x10(3)/[facility] LABORATORY RDWSD 57.1 (H) 36.0 - [facility] 45.0 [facility] LABORATORY RDWCV 17.2 (H) 11.4 - [facility] 13.8 % [facility] LABORATORY MPV 9.5 7.6 - 12.9 [facility] LABORATORY nRBC % Auto 0.0 % [facility] LABORATORY nRBC Abs Auto 0.000 0.000 - [facility] 0.[address] [facility] x10(3)/[facility] LABORATORY Specimen Anatomical Collection Method Collection Time Receive d Time (Source) Location / / Volume Laterality Blood specimen 05/10/2018 1:43 AM 019 1:59 (specimen) EST AM EST Resulting Agency Comment Spec In Lab Mary Ruiz MD HEMATOLOGY ORDERABLES Performing Organization Address City/[facility]/ZIP Code Phon e Number [address] Magnesium (05/10/2018 1:43 AM EST) P athologist Signature Magnesium 0.79 0.69 - 1.[address] [facility] mmol/L [facility] LABORATORY Specimen Anatomical Collection Method Collection Time Receive d Time (Source) Location / / Volume Laterality Blood specimen 05/10/2018 1:43 AM 019 1:59 (specimen) EST AM EST Resulting Agency Comment Spec In Lab Krishna Collazo MD CHEMISTRY ORDERABLES Performing Organization Address City/[facility]/ZIP Code Phon e Number [address] Phosphorus (05/10/2018 1:43 AM EST) P athologist Signature Phosphorus 3.6 2.5 - 4.5 [facility] mg/dL [facility] LABORATORY Specimen Anatomical Collection Method Collection Time Receive d Time (Source) Location / / Volume Laterality Blood specimen 05/10/2018 1:43 AM 019 1:59 (specimen) EST AM EST Resulting Agency Comment Spec In Lab Krishna Collazo MD CHEMISTRY ORDERABLES Performing Organization Address City/[facility]/ZIP [facility] [address] (ABNORMAL) Comprehensive metabolic panel (non-fasting) (05/10/2018 1:43 AM EST) P athologist Signature Glucose Lvl 112 65 - [address] [facility] mg/dL [facility] LABORATORY Comment: Diabetes: >=200 mg/dL plus symp toms BUN 11 10 - 20 mg/dL [facility] LABORATORY Creatinine 0.65 (L) 0.80 - 1.50 mg/dL [facility] LABORATORY Sodium 135 135 - 145 mmol/L [facility] LABORATORY Potassium 3.6 3.5 - 5.0 mmol/L [facility] LABORATORY Comment: Please note: ??Patients with WBC >100,00 0 may have falsely elevated Potassium levels. ??For accurate Potassium quantif ication in these patients send serum separator tube (gold top) for subsequent determinations. ??Contact the Clinical Chemistry Laboratory if there are any qu estions. Chloride 103 98 - 107 mmol/L [facility] LABORATORY CO2 21 (L) 22 - 31 mmol/L [facility] LABORATORY Anion Gap 11 5 - 15 mmol/L [facility] LABORATORY Calcium 8.2 (L) 8.5 - 10.5 mg/dL [facility] LABORATORY Total Protein 5.4 (L) 6.1 - 8.0 gm/dL [facility] LABORATORY Albumin 2.2 (L) 3.2 - 5.2 gm/dL [facility] LABORATORY AST 51 (H) 0 - 39 unit/L [facility] LABOR[facility] ALT 88 (H) 0 - 55 unit/L [facility] LAB[facility] Alk Phos 90 40 - 120 unit/L [facility] LABORATORY Total Bilirubin 4.3 (H) 0.2 - 1.3 mg/dL [facility] LABORATORY Estimated GFR 107 >=60 mL/min/1.73 m?? [facility] LABORATORY Comment: The eGFR was calculated using the CKD-EP I equation. As with all creatinine based estimates of kidney function, eGFR values calculated with the CKD-EPI equation are not accurate in patients wi th acute kidney failure, extremes of body mass or the acutely ill. [email or web address]/[facility] [place]nkf eGFR 124 >=60 mL/min/1.73 m?? [facility] LABORATORY Comment: The eGFR was calculated using the CKD-EP I equation. As with all creatinine based estimates of kidney function, eGFR values calculated with the CKD-EPI equation are not accurate in patients wi th acute kidney failure, extremes of body mass or the acutely ill. [email or web address]/[facility] [place] CITYnkf Specimen Anatomical Collection Method Collection Time Receive d Time (Source) Location / / Volume Laterality Blood specimen 05/10/2018 1:43 AM 019 1:59 (specimen) EST AM EST Resulting Agency Comment Spec In Lab Krishna Collazo MD CHEMISTRY ORDERABLES Performing Organization Address City/[facility]/ZIP [facility] Phon e Number [address] Amylase (05/10/2018 1:43 AM EST) athologist Signature Amylase 37 28 - [address] [facility] unit/L [facility] LABORATORY Specimen Anatomical Collection Method Collection Time Receive d Time (Source) Location / / Volume Laterality Blood specimen 05/10/2018 1:43 AM 019 1:59 (specimen) EST AM EST Resulting Agency Comment Spec In Lab Krishna Collazo MD CHEMISTRY ORDERABLES Performing Organization Address [facility] Phon e Number [address] POCT Glucose (05/09/2018 11:31 PM EST) athologist Signature POC Glucose 112 65 - 199 [facility] mg/dL [facility] LABORATORY Comment: Supplemental ranges: <140 mg/dL before meals <180 mg/dL all other times of the day Specimen Anatomical Collection Method Collection Time Receive d Time (Source) Location / / Volume Laterality Blood specimen 05/09/2018 11:31 9 (specimen) PM EST 11:31 PM EST Krishna Collazo MD POINT OF CARE TEST ORDERABLE S Performing Organization Address City/[facility] [place] [address] POCT Glucose (05/09/2018 7:48 PM EST) athologist Signature POC Glucose 105 65 - 199 [facility] LAB[facility] Comment: Supplemental ranges: <140 mg/dL before meals <180 mg/dL all other times of the day Specimen Anatomical Collection Method Collection Time Receive d Time (Source) Location / / Volume Laterality Blood specimen 05/09/2018 7:48 PM 019 7:48 (specimen) EST PM EST Krishna Collazo MD POINT OF CARE TEST ORDERABLE S Performing Organization Address City/State/ZIP Code Phon e Number [address] POCT Glucose (05/09/2018 4:21 PM EST) athologist Signature POC Glucose 106 65 - 199 KAYY GARRET mg/dL [facility] LABOR[facility]ORY Comment: Supplemental ranges: <140 mg/dL before meals <180 mg/dL all other times of the day Specimen Anatomical Collection Method Collection Time Receive d Time (Source) Location / / Volume Laterality Blood specimen 05/09/2018 4:21 PM 019 4:21 (specimen) EST PM EST Krishna Collazo MD POINT OF CARE TEST ORDERABLE S Performing Organization Address City/[facility]/ZIP Code Phon e Number KAYY [address] POCT Glucose (05/09/2018 11:55 AM EST) athologist Signature POC Glucose 97 65 - 199 [place] mg/dL [facility] Comment: Supplemental ranges: <140 mg/dL before meals <180 mg/dL all other times of the day Specimen Anatomical Collection Method Collection Time Receive d Time (Source) Location / / Volume Laterality Blood specimen 05/09/2018 11:55 9 (specimen) AM EST 11:55 AM EST Krishna Collazo MD POINT OF CARE TEST ORDERABLE S Performing Organization Address City/[facility]/ZIP Code Phon e Number KAYY TREVIZO [address] POCT Glucose (05/09/2018 7:33 AM EST) athologist Signature POC Glucose 100 65 - 199 [place] mg/dL [facility] Comment: Supplemental ranges: <140 mg/dL before meals <180 mg/dL all other times of the day Specimen Anatomical Collection Method Collection Time Receive d Time (Source) Location / / Volume Laterality Blood specimen 05/09/2018 7:33 AM 019 7:33 (specimen) EST AM EST Krishna Collazo MD POINT OF CARE TEST ORDERABLE S Performing Organization Address City/State/ZIP Code Phon e Number [address] Amylase Level Body Fluid ELPIDIO Drain (05/09/2018 6:13 AM EST) P athologist Signature Amylase, BF 23 unit/L [facility]OR[facility] Comment: No reference range is available for the specimen type submitted. ??The performance of this assay for the submit ana type has not been validated and results should be interpreted accordingl y and with regard to the patient's clinical status. Amylase BF Type ELPIDIO Drain [facility] LABORATORY Specimen Anatomical Collection Method Collection Time Receive d Time (Source) Location / / Volume Laterality ELPIDIO Drain 05/09/2018 6:13 AM 9 6:33 EST AM EST Resulting Agency Comment Spec In Lab Krishna Collazo MD BODY FLUIDS AND STOOLS ORDER GEE Performing Organization Address [facility]/ZIP [facility] Phon e Number [address] POCT Glucose (05/09/2018 4:14 AM EST) athologist [facility] POC Glucose 105 65 - [address] [facility] mg/dL [facility] Comment: Supplemental ranges: <140 mg/dL before meals <180 mg/dL all other times of the day Specimen Anatomical Collection Method Collection Time Receive d Time (Source) Location / / Volume Laterality Blood specimen 05/09/2018 4:14 AM 019 4:14 (specimen) EST AM EST Krishna Collazo MD POINT OF CARE TEST ORDERABLE S Performing Organization Address City/[facility]/ZIP Code Phon e Number [address] (ABNORMAL) Differential, Automated (05/09/2018 1:43 AM EST) Patholo gist Method Time Signature Neutrophils % 78.4 % [facility] LABORATORY Neutr Abs (ANC) 9.20 (H) 1.70 - [facility] 6.[address] [facility] x10(3)/[facility] L LABORATORY Lymphocytes % 9.7 % [facility] LABORATORY Lymphocytes Abs 1.1 0.9 - 3.[address] [facility] x10(3)/[facility] LABORATORY Monocytes % 8.4 % [facility] LABORATORY Monocyte Abs 1.0 (H) 0.3 - 0.[address] [facility] x10(3)/[facility] LABORATORY Eosinophils % 1.9 % [facility] LABORATORY Eosinophils Abs 0.2 0.0 - 0.[address] [facility] x10(3)/[facility] LABORATORY Basophils % 0.4 % [facility] LABORATORY Basophils Abs 0.0 0.0 - 0.[address] [facility] x10(3)/[facility] LABORATORY Immature Gran % 1.20 % [facility]ORATORY Comment: Immature granulocytes(IG's)percentage an d absolute count will include metamyelocytes, myelocytes, and promyelo cytes. Blood smears from CBCs yielding IG's will be scanned manually for concor dance. If this scan disagrees with the automated IG or if promyelocytes are not ed, a manual differential will be performed. [place] Gran Abs 0.14 (H) 0.00 - 0.04 x10(3)/[facility] LABORATORY Specimen Anatomical Collection Method Collection Time Receive d Time (Source) Location / / Volume Laterality Blood specimen 05/09/2018 1:43 AM 019 1:54 (specimen) EST AM EST Resulting Agency Comment Spec In Lab Mary Ruiz MD HEMATOLOGY ORDERABLES Performing Organization Address City/State/[place] [address] (ABNORMAL) Hemogram (05/09/2018 1:43 AM EST) Analysis Performed At Patho logist Time Signature WBC 11.7 (H) 4.0 - 9.[address] [facility] x10(3)/[facility] LABORATORY RBC 2.93 (L) 4.58 - [facility] 5.[address] [facility] x10(6)/[facility] LABORATORY Hemoglobin 9.4 (L) 13.7 - [facility] 16.5 gm/dL [facility] LABORATORY Hematocrit 27.1 (L) 40.5 - [facility] 48.5 % [facility] LAB[facility] MCV 92.5 82.9 - [facility] 93.1 [facility] LABORATORY MCH 32.1 27.5 - KAYY REINOSOCOCK 32.1 pg [facility] LABORATORY MCHC 34.7 32.0 - KAYY TREVIZO 35.7 gm/dL [facility] LABORATORY Platelets 259 145 - 357 KAYY [place] x10(3)/[facility] LABORATORY RDWSD 58.0 (H) 36.0 - KAYY TREVIZO 45.0 [facility] LABORATORY RDWCV 17.2 (H) 11.4 - KAYY TREVIZO 13.8 % [facility] LABORATORY MPV 9.6 7.6 - 12.9 KAYY TREVIZO [facility] LABORATORY nRBC % Auto 0.0 % [facility] LABORATORY nRBC Abs Auto 0.000 0.000 - KAYY TREVIZO 0.[address] [facility] x10(3)/[facility] LABORATORY Specimen Anatomical Collection Method Collection Time Receive d Time (Source) Location / / Volume Laterality Blood specimen 05/09/2018 1:43 AM 019 1:54 (specimen) EST AM EST Resulting Agency Comment Spec In Lab Mary Ruiz MD HEMATOLOGY ORDERABLES Performing Organization Address City/State/ZIP Code Phon e Number [address] Magnesium (05/09/2018 1:43 AM EST) P athologist Signature Magnesium 0.79 0.69 - 1.07 KAY[place] GARRET mmol/L [facility] LABORATORY Specimen Anatomical Collection Method Collection Time Receive d Time (Source) Location / / Volume Laterality Blood specimen 05/09/2018 1:43 AM 019 1:54 (specimen) EST AM EST Resulting Agency Comment Spec In Lab Krishna Collazo MD CHEMISTRY ORDERABLES Performing Organization Address City/State/ZIP Code Phon e Number [address] Phosphorus (05/09/2018 1:43 AM EST) P athologist Signature Phosphorus 2.6 2.5 - 4.5 KAY[place] GARRET mg/dL [facility] LABORATORY Specimen Anatomical Collection Method Collection Time Receive d Time (Source) Location / / Volume Laterality Blood specimen 05/09/2018 1:43 AM 019 1:54 (specimen) EST AM EST Resulting Agency Comment Spec In Lab Krishna Collazo MD CHEMISTRY ORDERABLES Performing Organization Address City/State/[place] [address] (ABNORMAL) Comprehensive metabolic panel (non-fasting) (05/09/2018 1:43 AM EST) P athologist Signature Glucose Lvl 107 65 - [address] [facility] mg/dL [facility] Comment: Diabetes: >=200 mg/dL plus symp toms BUN 10 10 - 20 mg/dL [facility] LABORATORY Creatinine 0.63 (L) 0.80 - 1.50 mg/dL [facility] LABORATORY Sodium 138 135 - 145 mmol/L [facility] LABORATORY Potassium 3.6 3.5 - 5.0 mmol/L [facility] Comment: Please note: ??Patients with WBC >100,00 0 may have falsely elevated Potassium levels. ??For accurate Potassium quantif ication in these patients send serum separator tube (gold top) for subsequent determinations. ??Contact the Clinical Chemistry Laboratory if there are any qu estions. Chloride 105 98 - 107 mmol/L [facility] LABORATORY CO2 24 22 - 31 mmol/L [facility] LABORATORY Anion Gap 9 5 - 15 mmol/L [facility] Calcium 8.2 (L) 8.5 - 10.5 mg/dL [facility] LABORATORY Total Protein 5.4 (L) 6.1 - 8.0 gm/dL [facility] LABORATORY Albumin 2.2 (L) 3.2 - 5.2 gm/dL [facility]ORATORY AST 47 (H) 0 - 39 unit/L [facility] ALT 107 (H) 0 - 55 unit/L [facility] Alk Phos 94 40 - 120 unit/L [facility] LABORATORY Total Bilirubin 5.2 (H) 0.2 - 1.3 mg/dL [facility] LABORATORY Estimated GFR 109 >=60 mL/min/1.73 m?? [facility] Comment: The eGFR was calculated using the CKD-EP I equation. As with all creatinine based estimates of kidney function, eGFR values calculated with the CKD-EPI equation are not accurate in patients wi th acute kidney failure, extremes of body mass or the acutely ill. [email or web address] [place] eGFR 126 >=60 mL/min/1.73 m?? [facility] Comment: The eGFR was calculated using the CKD-EP I equation. As with all creatinine based estimates of kidney function, eGFR values calculated with the CKD-EPI equation are not accurate in patients wi th acute kidney failure, extremes of body mass or the acutely ill. [email or web address] [place] Specimen Anatomical Collection Method Collection Time Receive d Time (Source) Location / / Volume Laterality Blood specimen 05/09/2018 1:43 AM 019 1:54 (specimen) EST AM EST Resulting Agency Comment Spec In Lab Krishna Collazo MD CHEMISTRY ORDERABLES Performing Organization Address City/[facility]/[place] [address] Amylase (05/09/2018 1:43 AM EST) P athologist Signature Amylase 44 28 - [address] [facility] unit/L [facility] Comment: result rechecked- ank Specimen Anatomical Collection Method Collection Time Receive d Time (Source) Location / / Volume Laterality Blood specimen 05/09/2018 1:43 AM 019 1:54 (specimen) EST AM EST Resulting Agency Comment Spec In Lab Krishna Collazo MD CHEMISTRY ORDERABLES Performing Organization Address City/[facility]/[place] [address] POCT Glucose (05/09/2018 12:12 AM EST) P athologist Signature POC Glucose 109 65 - [address] [facility] mg/dL [facility] Comment: Supplemental ranges: <140 mg/dL before meals <180 mg/dL all other times of the day Specimen Anatomical Collection Method Collection Time Receive d Time (Source) Location / / Volume Laterality Blood specimen 05/09/2018 12:12 9 (specimen) AM EST 12:12 AM EST rKishna Collazo MD POINT OF CARE TEST ORDERABLE S Performing Organization Address City/[facility]/ZIP Code Phon e Number [address] POCT Glucose (05/08/2018 7:56 PM EST) athologist Signature POC Glucose 109 65 - 199 KAYY OROZCOGARRET mg/dL [facility] Comment: Supplemental ranges: <140 mg/dL before meals <180 mg/dL all other times of the day Specimen Anatomical Collection Method Collection Time Receive d Time (Source) Location / / Volume Laterality Blood specimen 05/08/2018 7:56 PM 019 7:56 (specimen) EST PM EST Krishna Collazo MD POINT OF CARE TEST ORDERABLE S Performing Organization Address City/[facility]/ZIP Code Phon e Number [address] POCT Glucose (05/08/2018 4:29 PM EST) athologist Signature POC Glucose 121 65 - 199 KAYY OROZCOGARRET mg/dL [facility] Comment: Supplemental ranges: <140 mg/dL before meals <180 mg/dL all other times of the day Specimen Anatomical Collection Method Collection Time Receive d Time (Source) Location / / Volume Laterality Blood specimen 05/08/2018 4:29 PM 019 4:29 (specimen) EST PM EST Krishna Collazo MD POINT OF CARE TEST ORDERABLE S Performing Organization Address City/State/ZIP Code Phon e Number [address] POCT Glucose (05/08/2018 11:40 AM EST) athologist Signature POC Glucose 104 65 - 199 KAYY OROZCOGARRET mg/dL [facility] Comment: Supplemental ranges: <140 mg/dL before meals <180 mg/dL all other times of the day Specimen Anatomical Collection Method Collection Time Receive d Time (Source) Location / / Volume Laterality Blood specimen 05/08/2018 11:40 9 (specimen) AM EST 11:40 AM EST Krishna Collazo MD POINT OF CARE TEST ORDERABLE S Performing Organization Address City/[facility]/ZIP Code Phon e Number [address] POCT Glucose (05/08/2018 7:53 AM EST) athologist Signature POC Glucose 102 65 - 199 [facility] Comment: Supplemental ranges: <140 mg/dL before meals <180 mg/dL all other times of the day Specimen Anatomical Collection Method Collection Time Receive d Time (Source) Location / / Volume Laterality Blood specimen 05/08/2018 7:53 AM 019 7:53 (specimen) EST AM EST Krishna Collazo MD POINT OF CARE TEST ORDERABLE S Performing Organization Address [facility] [place] [address] Amylase Level Body Fluid ELPIDIO Drain (05/08/2018 5:19 AM EST) athologist Signature Amylase, BF 23 unit/L [facility] Comment: No reference range is available for the specimen type submitted. ??The performance of this assay for the submit ana type has not been validated and results should be interpreted accordingl y and with regard to the patient's clinical status. Amylase BF Type ELPIDIO Drain [facility] LABORATORY Specimen Anatomical Collection Method Collection Time Receive d Time (Source) Location / / Volume Laterality ELPIDIO Drain 05/08/2018 5:19 AM 9 5:58 EST AM EST Resulting Agency Comment Spec In Lab Krishna Collazo MD BODY FLUIDS AND STOOLS ORDER GEE Performing Organization Address City/[facility]/ZIP Code Phon e Number [address] POCT Glucose (05/08/2018 3:35 AM EST) athologist Signature POC Glucose 104 65 - 199 [facility] mg/dL [facility] Comment: Supplemental ranges: <140 mg/dL before meals <180 mg/dL all other times of the day Specimen Anatomical Collection Method Collection Time Receive d Time (Source) Location / / Volume Laterality Blood specimen 05/08/2018 3:35 AM 019 3:35 (specimen) EST AM EST Krishna Collazo MD POINT OF CARE TEST ORDERABLE S Performing Organization Address City/State/[place] [address] (ABNORMAL) Differential, Automated (05/08/2018 1:14 AM EST) [facility] gist Method Time Signature Neutrophils % 83.4 % [facility] LABORATORY Neutr Abs (ANC) 12.36 (H) 1.70 - [facility] 6.[address] [facility] x10(3)/[facility] LABORATORY Lymphocytes % 8.2 % [facility] LABORATORY Lymphocytes Abs 1.2 0.9 - 3.[address] [facility] x10(3)/[facility] LABORATORY Monocytes % 6.6 % [facility] LABORATORY Monocyte Abs 1.0 (H) 0.3 - 0.[address] [facility] x10(3)/[facility] LABORATORY Eosinophils % 0.9 % [facility] LABORATORY Eosinophils Abs 0.1 0.0 - 0.[address] [facility] x10(3)/[facility] LABORATORY Basophils % 0.2 % [facility] LABORATORY Basophils Abs 0.0 0.0 - 0.[address] [facility] x10(3)/[facility] LABORATORY Immature Gran % 0.70 % [facility] LABORATORY Comment: Immature granulocytes(IG's)percentage an d absolute count will include metamyelocytes, myelocytes, and promyelo cytes. Blood smears from CBCs yielding IG's will be scanned manually for concor dance. If this scan disagrees with the automated IG or if promyelocytes are not ed, a manual differential will be performed. [place] Gran Abs 0.10 (H) 0.00 - 0.04 x10(3)/[facility] LABORATORY Specimen Anatomical Collection Method Collection Time Receive d Time (Source) Location / / Volume Laterality Blood specimen 05/08/2018 1:14 AM 019 1:24 (specimen) EST AM EST Resulting Agency Comment Spec In Lab Mary Ruiz MD HEMATOLOGY ORDERABLES Performing Organization Address City/State/ZIP Code Phon e Number [address] (ABNORMAL) Hemogram (05/08/2018 1:14 AM EST) Analysis Performed At Patho logist Time Signature WBC 14.8 (H) 4.0 - 9.5 [facility] x10(3)/[facility] LABORATORY RBC 2.85 (L) 4.58 - KAYY GARRET 5.[address] [facility] x10(6)/[facility] LABORATORY Hemoglobin 9.1 (L) 13.7 - [facility] 16.5 gm/dL [facility] LAB[facility]ORY Hematocrit 27.3 (L) 40.5 - [facility] 48.5 % [facility] LAB[facility] MCV 95.8 (H) 82.9 - [facility] 93.1 [facility] LABORATORY MCH 31.9 27.5 - KAYY GARRET 32.1 pg [facility] LABORATORY MCHC 33.3 32.0 - KAYY GARRET 35.7 gm/dL [facility] Platelets 244 145 - [address] [facility] x10(3)/[facility] LABORATORY RDWSD 61.6 (H) 36.0 - KAYY GARRET 45.0 [facility] LABORATORY RDWCV 17.7 (H) 11.4 - [facility] GARRET 13.8 % [facility] LABORATORY MPV 10.0 7.6 - 12.9 [facility] LABORATORY nRBC % Auto 0.0 % [facility] LABORATORY nRBC Abs Auto 0.000 0.000 - KAYY GARRET 0.[address] [facility] x10(3)/[facility] LABORATORY Specimen Anatomical Collection Method Collection Time Receive d Time (Source) Location / / Volume Laterality Blood specimen 05/08/2018 1:14 AM 019 1:24 (specimen) EST AM EST Resulting Agency Comment Spec In Lab Mary Ruiz MD HEMATOLOGY ORDERABLES Performing Organization Address City/State/ZIP Code Phon e Number [address] Magnesium (05/08/2018 1:14 AM EST) athologist Signature Magnesium 0.79 0.69 - 1.[address] [facility] mmol/L [facility] LABORATORY Specimen Anatomical Collection Method Collection Time Receive d Time (Source) Location / / Volume Laterality Blood specimen 05/08/2018 1:14 AM 019 1:24 (specimen) EST AM EST Resulting Agency Comment Spec In Lab Krishna Collazo MD CHEMISTRY ORDERABLES Performing Organization Address City/[facility] Phon e Number [address] (ABNORMAL) Phosphorus (05/08/2018 1:14 AM EST) athologist Signature Phosphorus 2.0 (L) 2.5 - 4.[address] [facility] mg/dL [facility] LABOR[facility]ORY Specimen Anatomical Collection Method Collection Time Receive d Time (Source) Location / / Volume Laterality Blood specimen 05/08/2018 1:14 AM 1:24 (specimen) EST AM EST Resulting Agency Comment Spec In Lab Krishna Collazo MD CHEMISTRY ORDERABLES Performing Organization Address City/[facility] Phon e Number [address] (ABNORMAL) Comprehensive metabolic panel (non-fasting) (05/08/2018 1:14 AM EST) athologist Signature Glucose Lvl 106 65 - [address] [facility] mg/dL [facility] Comment: Diabetes: >=200 mg/dL plus symp toms BUN 9 (L) 10 - 20 mg/dL [facility]OR[facility]ORY Creatinine 0.63 (L) 0.80 - 1.50 mg/dL [facility] LABORATORY Sodium 138 135 - 145 mmol/L [facility] LABORATORY Potassium 3.7 3.5 - 5.0 mmol/L [facility] Comment: Please note: ??Patients with WBC >100,00 0 may have falsely elevated Potassium levels. ??For accurate Potassium quantif ication in these patients send serum separator tube (gold top) for subsequent determinations. ??Contact the Clinical Chemistry Laboratory if there are any qu estions. Chloride 103 98 - 107 mmol/L [facility] LABORATORY CO2 26 22 - 31 mmol/L [facility] LABOR[facility]ORY Anion Gap 9 5 - 15 mmol/L [facility] Calcium 8.1 (L) 8.5 - 10.5 mg/dL [facility] LABORATORY Total Protein 5.2 (L) 6.1 - 8.0 gm/dL [facility] LAB[facility]ORY Albumin 2.3 (L) 3.2 - 5.2 gm/dL [facility] LABORATORY AST 79 (H) 0 - 39 unit/L [facility] ALT 153 (H) 0 - 55 unit/L [facility] Alk Phos 103 40 - 120 unit/L [facility]OR[facility] Total Bilirubin 6.4 (H) 0.2 - 1.3 mg/dL [facility] LABORAT[facility] Estimated GFR 109 >=60 mL/min/1.73 m?? [facility] Comment: The eGFR was calculated using the CKD-EP I equation. As with all creatinine based estimates of kidney function, eGFR values calculated with the CKD-EPI equation are not accurate in patients wi th acute kidney failure, extremes of body mass or the acutely ill. [email or web address] [email or web address] eGFR 126 >=60 mL/min/1.73 m?? [facility] Comment: The eGFR was calculated using the CKD-EP I equation. As with all creatinine based estimates of kidney function, eGFR values calculated with the CKD-EPI equation are not accurate in patients wi th acute kidney failure, extremes of body mass or the acutely ill. [email or web address] [email or web address] Specimen Anatomical Collection Method Collection Time Receive d Time (Source) Location / / Volume Laterality Blood specimen 05/08/2018 1:14 AM 019 1:24 (specimen) EST AM EST Resulting Agency Comment Spec In Lab Krishna Collazo MD CHEMISTRY ORDERABLES Performing Organization Address City/State/[place] [address] (ABNORMAL) Amylase (05/08/2018 1:14 AM EST) athologist Signature Amylase 19 (L) 28 - [address] [facility] unit/L [facility] Specimen Anatomical Collection Method Collection Time Receive d Time (Source) Location / / Volume Laterality Blood specimen 05/08/2018 1:14 AM 019 1:24 (specimen) EST AM EST Resulting Agency Comment Spec In Lab Krishna Collazo MD CHEMISTRY ORDERABLES Performing Organization Address City/State/ZIP Code Phon e Number [address] POCT Glucose (05/07/2018 11:46 PM EST) athologist Signature POC Glucose 102 65 - 199 [facility] Comment: Supplemental ranges: <140 mg/dL before meals <180 mg/dL all other times of the day Specimen Anatomical Collection Method Collection Time Receive d Time (Source) Location / / Volume Laterality Blood specimen 05/07/2018 11:46 9 (specimen) PM EST 11:46 PM EST Krishna Collazo MD POINT OF CARE TEST ORDERABLE S Performing Organization Address City/[facility]/ZIP Code Phon e Number [address] POCT Glucose (05/07/2018 8:02 PM EST) athologist Signature POC Glucose 111 65 - 199 [facility] Comment: Supplemental ranges: <140 mg/dL before meals <180 mg/dL all other times of the day Specimen Anatomical Collection Method Collection Time Receive d Time (Source) Location / / Volume Laterality Blood specimen 05/07/2018 8:02 PM 019 8:02 (specimen) EST PM EST Krishna Collazo MD POINT OF CARE TEST ORDERABLE S Performing Organization Address City/[facility]/ZIP Code Phon e Number [address] POCT Glucose (05/07/2018 3:55 PM EST) athologist Signature POC Glucose 191 65 - 199 [facility] Comment: Supplemental ranges: <140 mg/dL before meals <180 mg/dL all other times of the day Specimen Anatomical Collection Method Collection Time Receive d Time (Source) Location / / Volume Laterality Blood specimen 05/07/2018 3:55 PM 019 3:55 (specimen) EST PM EST Krishna Collazo MD POINT OF CARE TEST ORDERABLE S Performing Organization Address City/[facility]/[place] [address] POCT Glucose (05/07/2018 11:27 AM EST) P athologist Signature POC Glucose 118 65 - 199 [facility] Comment: Supplemental ranges: <140 mg/dL before meals <180 mg/dL all other times of the day Specimen Anatomical Collection Method Collection Time Receive d Time (Source) Location / / Volume Laterality Blood specimen 05/07/2018 11:27 9 (specimen) AM EST 11:27 AM EST Krishna Collazo MD POINT OF CARE TEST ORDERABLE S Performing Organization Address City/[facility] Phon e Number [address] Amylase Level Body Fluid ELPIDIO Drain (05/07/2018 6:41 AM EST) P athologist Signature Amylase, BF 83 unit/L [facility] LABORATORY Comment: No reference range is available for the specimen type submitted. ??The performance of this assay for the submit ana type has not been validated and results should be interpreted accordingl y and with regard to the patient's clinical status. Amylase BF Type ELPIDIO Drain [facility] LABORATORY Specimen Anatomical Collection Method Collection Time Receive d Time (Source) Location / / Volume Laterality ELPIDIO Drain 05/07/2018 6:41 AM 9 6:54 EST AM EST Resulting Agency Comment Spec In Lab Krishna Collazo MD BODY FLUIDS AND STOOLS ORDER GEE Performing Organization Address City/[facility]/ZIP Code Phon e Number [address] (ABNORMAL) Differential, Automated (05/07/2018 1:36 AM EST) Patholo gist Method Time Signature Neutrophils % 86.8 % [facility] LABORATORY Neutr Abs (ANC) 16.28 (H) 1.70 - [facility] 6.[address] [facility] x10(3)/[facility] LABORATORY Lymphocytes % 5.6 % [facility] LABORATORY Lymphocytes Abs 1.0 0.9 - 3.[address] [facility] x10(3)/[facility] LABORATORY Monocytes % 6.6 % [facility] LABORATORY Monocyte Abs 1.2 (H) 0.3 - 0.[address] [facility] x10(3)/[facility] LABORATORY Eosinophils % 0.1 % [facility] LABORATORY Eosinophils Abs 0.0 0.0 - 0.[address] [facility] x10(3)/[facility] LABORATORY Basophils % 0.3 % [facility] LABORATORY Basophils Abs 0.1 0.0 - 0.[address] [facility] x10(3)/[facility] LABORATORY Immature Gran % 0.60 % [facility] LABORATORY Comment: Immature granulocytes(IG's)percentage an d absolute count will include metamyelocytes, myelocytes, and promyelo cytes. Blood smears from CBCs yielding IG's will be scanned manually for concor dance. If this scan disagrees with the automated IG or if promyelocytes are not ed, a manual differential will be performed. [place] Gran Abs 0.12 (H) 0.00 - 0.04 x10(3)/[facility] LABORATORY Specimen Anatomical Collection Method Collection Time Receive d Time (Source) Location / / Volume Laterality Blood specimen 05/07/2018 1:36 AM 019 1:55 (specimen) EST AM EST Resulting Agency Comment Spec In Lab Mary Ruiz MD HEMATOLOGY ORDERABLES Performing Organization Address City/State/[place] [address] (ABNORMAL) Hemogram (05/07/2018 1:36 AM EST) Analysis Performed At Patho logist Time Signature WBC 18.8 (H) 4.0 - 9.[address] [facility] x10(3)/[facility] LABORATORY RBC 3.10 (L) 4.58 - [facility] 5.[address] [facility] x10(6)/[facility] LABORATORY Hemoglobin 9.8 (L) 13.7 - [facility] 16.5 gm/dL [facility] Hematocrit 29.5 (L) 40.5 - [facility] 48.5 % [facility] LABORATORY MCV 95.2 (H) 82.9 - [facility] 93.1 [facility] LABORATORY MCH 31.6 27.5 - [facility] 32.1 pg [facility] LABORATORY MCHC 33.2 32.0 - [facility] 35.7 gm/dL [facility] LAB[facility]ORY Platelets 242 145 - [address] [facility] x10(3)/[facility] LABORATORY RDWSD 63.6 (H) 36.0 - [facility] 45.0 [facility] LABORATORY RDWCV 18.5 (H) 11.4 - [facility] 13.8 % [facility] LABORATORY MPV 10.3 7.6 - 12.9 [facility] LABORATORY nRBC % Auto 0.0 % [facility] LABORATORY nRBC Abs Auto 0.000 0.000 - [facility] 0.[address] [facility] x10(3)/[facility] LABORATORY Specimen Anatomical Collection Method Collection Time Receive d Time (Source) Location / / Volume Laterality Blood specimen 05/07/2018 1:36 AM 019 1:55 (specimen) EST AM EST Resulting Agency Comment Spec In Lab Mary Ruiz MD HEMATOLOGY ORDERABLES Performing Organization Address City/State/[place] [address] Magnesium (05/07/2018 1:36 AM EST) P athologist Signature Magnesium 0.84 0.69 - 1.[address] [facility] mmol/L [facility] LABORATORY Specimen Anatomical Collection Method Collection Time Receive d Time (Source) Location / / Volume Laterality Blood specimen 05/07/2018 1:36 AM 019 1:55 (specimen) EST AM EST Resulting Agency Comment Spec In Lab Krishna Collazo MD CHEMISTRY ORDERABLES Performing Organization Address City/State/ZIP Code Phon e Number [address] (ABNORMAL) Phosphorus (05/07/2018 1:36 AM EST) P athologist Signature Phosphorus 1.5 (L) 2.5 - 4.[address] [facility] mg/dL [facility] LABORATORY Specimen Anatomical Collection Method Collection Time Receive d Time (Source) Location / / Volume Laterality Blood specimen 05/07/2018 1:36 AM 019 1:55 (specimen) EST AM EST Resulting Agency Comment Spec In Lab Krishna Collazo MD CHEMISTRY ORDERABLES Performing Organization Address City/[facility]/ZIP Code Phon e Number [address] (ABNORMAL) Comprehensive metabolic panel (non-fasting) (05/07/2018 1:36 AM EST) athologist Signature Glucose Lvl 135 65 - [address] [facility] mg/dL [facility] LABOR[facility] Comment: Diabetes: >=200 mg/dL plus symp toms BUN 12 10 - 20 mg/dL [facility] LABORATORY Creatinine 0.79 (L) 0.80 - 1.50 mg/dL [facility] LABORATORY Sodium 135 135 - 145 mmol/L [facility] LABORATORY Potassium 4.4 3.5 - 5.0 mmol/L [facility] LABORATORY Comment: Please note: ??Patients with WBC >100,00 0 may have falsely elevated Potassium levels. ??For accurate Potassium quantif ication in these patients send serum separator tube (gold top) for subsequent determinations. ??Contact the Clinical Chemistry Laboratory if there are any qu estions. Chloride 101 98 - 107 mmol/L [facility] LABORATORY CO2 25 22 - 31 mmol/L [facility] LABORATORY Anion Gap 9 5 - 15 mmol/L [facility] LABORATORY Calcium 7.8 (L) 8.5 - 10.5 mg/dL [facility] LABORATORY Total Protein 5.1 (L) 6.1 - 8.0 gm/dL [facility] LABORATORY Albumin 2.1 (L) 3.2 - 5.2 gm/dL [facility] LABORATORY AST 171 (H) 0 - 39 unit/L [facility]OR[facility] ALT 236 (H) 0 - 55 unit/L [facility] LABOR[facility] Alk Phos 113 40 - 120 unit/L [facility] LABORATORY Total Bilirubin 6.7 (H) 0.2 - 1.3 mg/dL [facility] LABORATORY Estimated GFR 99 >=60 mL/min/1.73 m?? [facility] LABORATORY Comment: The eGFR was calculated using the CKD-EP I equation. As with all creatinine based estimates of kidney function, eGFR values calculated with the CKD-EPI equation are not accurate in patients wi th acute kidney failure, extremes of body mass or the acutely ill. [email or web address] [email or web address] eGFR 115 >=60 mL/min/1.73 m?? [facility] LABORATORY Comment: The eGFR was calculated using the CKD-EP I equation. As with all creatinine based estimates of kidney function, eGFR values calculated with the CKD-EPI equation are not accurate in patients wi th acute kidney failure, extremes of body mass or the acutely ill. [email or web address] [email or web address] Specimen Anatomical Collection Method Collection Time Receive d Time (Source) Location / / Volume Laterality Blood specimen 05/07/2018 1:36 AM 019 1:55 (specimen) EST AM EST Resulting Agency Comment Spec In Lab Krishna Collazo MD CHEMISTRY ORDERABLES Performing Organization Address City/State/[place] [address] (ABNORMAL) Amylase (05/07/2018 1:36 AM EST) P athologist Signature Amylase 21 (L) 28 - [address] [facility] unit/L [facility] LABORATORY Specimen Anatomical Collection Method Collection Time Receive d Time (Source) Location / / Volume Laterality Blood specimen 05/07/2018 1:36 AM 019 1:55 (specimen) EST AM EST Resulting Agency Comment Spec In Lab Krishna Collazo MD CHEMISTRY ORDERABLES Performing Organization Address City/[facility]/ZIP Code Phon e Number [address] Amylase Level Body Fluid ELPIDIO Drain (05/06/2018 4:59 AM EST) P athologist Signature Amylase, BF 670 unit/L [facility] LABORATORY Comment: No reference range is available for the specimen type submitted. ??The performance of this assay for the submit ana type has not been validated and results should be interpreted accordingl y and with regard to the patient's clinical status. Amylase BF Type ELPIDIO Drain [facility] LABORATORY Specimen Anatomical Collection Method Collection Time Receive d Time (Source) Location / / Volume Laterality ELPIDIO Drain 05/06/2018 4:59 AM 9 5:10 EST AM EST Resulting Agency Comment Spec In Lab Krishna Collazo MD BODY FLUIDS AND STOOLS ORDER GEE Performing Organization Address City/[facility]/[place] [address] (ABNORMAL) Differential, Automated (05/06/2018 1:24 AM EST) Patholo gist Method Time Signature Neutrophils % 92.0 % [facility] LABORATORY Neutr Abs (ANC) 19.74 (H) 1.70 - [facility] 6.[address] [facility] x10(3)/[facility] L LABORATORY Lymphocytes % 3.0 % [facility] LABORATORY Lymphocytes Abs 0.6 (L) 0.9 - 3.[address] [facility] x10(3)/[facility] LABORATORY Monocytes % 4.3 % [facility] LABORATORY Monocyte Abs 0.9 0.3 - 0.[address] [facility] x10(3)/[facility] LABORATORY Eosinophils % 0.0 % [facility] LABORATORY Eosinophils Abs 0.0 0.0 - 0.[address] [facility] x10(3)/[facility] LABORATORY Basophils % 0.2 % [facility] LABORATORY Basophils Abs 0.0 0.0 - 0.[address] [facility] x10(3)/[facility] LABORATORY Immature Gran % 0.50 % [facility] LABORATORY Comment: Immature granulocytes(IG's)percentage an d absolute count will include metamyelocytes, myelocytes, and promyelo cytes. Blood smears from CBCs yielding IG's will be scanned manually for concor dance. If this scan disagrees with the automated IG or if promyelocytes are not ed, a manual differential will be performed. [place] Gran Abs 0.11 (H) 0.00 - 0.04 x10(3)/[facility] LABORATORY Specimen Anatomical Collection Method Collection Time Receive d Time (Source) Location / / Volume Laterality Blood specimen 05/06/2018 1:24 AM 019 1:44 (specimen) EST AM EST Resulting Agency Comment Spec In Lab Mary Ruiz MD HEMATOLOGY ORDERABLES Performing Organization Address City/State/ZIP Code Phon e Number [place] [id number] HOSPITAL [address] (ABNORMAL) Hemogram (05/06/2018 1:24 AM EST) Analysis Performed At Patho logist Time Signature WBC 21.5 (H) 4.0 - 9.[address] [facility] x10(3)/[facility] LABORATORY RBC 3.45 (L) 4.58 - [facility] [facility] x10(6)/[facility] LABORATORY Hemoglobin 11.0 (L) 13.7 - [facility] 16.5 gm/dL [facility] LABORATORY Hematocrit 33.3 (L) 40.5 - [facility]RET 48.5 % [facility] LABORATORY MCV 96.5 (H) 82.9 - [facility]RET 93.1 [facility] LABORATORY MCH 31.9 27.5 - [facility] 32.1 pg [facility] LABORATORY MCHC 33.0 32.0 - [facility] 35.7 gm/dL [facility] Platelets 292 145 - [address] [facility] x10(3)/[facility] LABORATORY RDWSD 65.9 (H) 36.0 - [facility]RET 45.0 [facility] LABORATORY RDWCV 18.8 (H) 11.4 - [facility]RET 13.8 % [facility] LABORATORY MPV 10.5 7.6 - 12.9 [facility] LABORATORY nRBC % Auto 0.0 % [facility] LABORATORY nRBC Abs Auto 0.000 0.000 - [facility] 0.[address] [facility] x10(3)/[facility] LABORATORY Specimen Anatomical Collection Method Collection Time Receive d Time (Source) Location / / Volume Laterality Blood specimen 05/06/2018 1:24 AM 019 1:44 (specimen) EST AM EST Resulting Agency Comment Spec In Lab Mary Ruiz MD HEMATOLOGY ORDERABLES Performing Organization Address City/[facility]/ZIP Code Phon e Number [address] (ABNORMAL) Magnesium (05/06/2018 1:24 AM EST) P athologist Signature Magnesium 0.68 (L) 0.69 - 1.07 [facility] mmol/L [facility] LABOR[facility]ORY Specimen Anatomical Collection Method Collection Time Receive d Time (Source) Location / / Volume Laterality Blood specimen 05/06/2018 1:24 AM 019 1:44 (specimen) EST AM EST Resulting Agency Comment Spec In Lab Krishna Collazo MD CHEMISTRY ORDERABLES Performing Organization Address City/[facility]/ZIP Code Phon e Number [address] (ABNORMAL) Phosphorus (05/06/2018 1:24 AM EST) P athologist Signature Phosphorus 5.2 (H) 2.5 - 4.5 [facility] mg/dL [facility] LABORATORY Specimen Anatomical Collection Method Collection Time Receive d Time (Source) Location / / Volume Laterality Blood specimen 05/06/2018 1:24 AM 019 1:44 (specimen) EST AM EST Resulting Agency Comment Spec In Lab Krishna Collazo MD CHEMISTRY ORDERABLES Performing Organization Address City/[facility]/ZIP Code Phon e Number [address] (ABNORMAL) Comprehensive metabolic panel (non-fasting) (05/06/2018 1:24 AM EST) P athologist Signature Glucose Lvl 125 65 - 199 [facility] mg/dL [facility] Comment: Diabetes: >=200 mg/dL plus symp toms BUN 15 10 - 20 mg/dL [facility] LABORATORY Creatinine 0.91 0.80 - 1.50 mg/dL [facility] LABORATORY Sodium 139 135 - 145 mmol/L [facility] LABORATORY Potassium 4.5 3.5 - 5.0 mmol/L [facility] LABORATORY Comment: Please note: ??Patients with WBC >100,00 0 may have falsely elevated Potassium levels. ??For accurate Potassium quantif ication in these patients send serum separator tube (gold top) for subsequent determinations. ??Contact the Clinical Chemistry Laboratory if there are any qu estions. Chloride 104 98 - 107 mmol/L [facility] LABORATORY CO2 25 22 - 31 mmol/L [facility] LABORATORY Anion Gap 10 5 - 15 mmol/L [facility]ORY Calcium 8.2 (L) 8.5 - 10.5 mg/dL [facility] LABORATORY Total Protein 5.3 (L) 6.1 - 8.0 gm/dL [facility] LABORATORY Albumin 2.4 (L) 3.2 - 5.2 gm/dL [facility] LABORATORY AST 325 (H) 0 - 39 unit/L [facility] ALT 342 (H) 0 - 55 unit/L [facility] Alk Phos 124 (H) 40 - 120 unit/L [facility] LABORATORY Total Bilirubin 7.7 (H) 0.2 - 1.3 mg/dL [facility] LABORATORY Estimated GFR 93 >=60 mL/min/1.73 m?? [facility] LABORATORY Comment: The eGFR was calculated using the CKD-EP I equation. As with all creatinine based estimates of kidney function, eGFR values calculated with the CKD-EPI equation are not accurate in patients wi th acute kidney failure, extremes of body mass or the acutely ill. [email or web address] eGFR 107 >=60 mL/min/1.73 m?? [facility] LABORATORY Comment: The eGFR was calculated using the CKD-EP I equation. As with all creatinine based estimates of kidney function, eGFR values calculated with the CKD-EPI equation are not accurate in patients wi th acute kidney failure, extremes of body mass or the acutely ill. [email or web address] Specimen Anatomical Collection Method Collection Time Receive d Time (Source) Location / / Volume Laterality Blood specimen 05/06/2018 1:24 AM 019 1:44 (specimen) EST AM EST Resulting Agency Comment Spec In Lab Krishna Collazo MD CHEMISTRY ORDERABLES Performing Organization Address City/[facility]/ZIP Code Phon e Number [address] Amylase (05/06/2018 1:24 AM EST) P athologist Signature Amylase 55 28 - [address] [facility] unit/L [facility] LABORATORY Specimen Anatomical Collection Method Collection Time Receive d Time (Source) Location / / Volume Laterality Blood specimen 05/06/2018 1:24 AM 019 1:44 (specimen) EST AM EST Resulting Agency Comment Spec In Lab Krishna Collazo MD CHEMISTRY ORDERABLES Performing Organization Address City/[facility]/ZIP [facility] [place] [address] (ABNORMAL) Comprehensive metabolic panel (non-fasting) (05/05/2018 6:32 PM EST) P athologist Signature Glucose Lvl 101 65 - [address] [facility] mg/dL [facility] Comment: Diabetes: >=200 mg/dL plus symp toms BUN 18 10 - 20 mg/dL [facility] Creatinine 0.86 0.80 - 1.50 mg/dL [facility] LABORATORY Sodium 136 135 - 145 mmol/L [facility] LABOR[facility]ORY Potassium 3.9 3.5 - 5.0 mmol/L [facility] LABOR[facility]ORY Comment: Please note: ??Patients with WBC >100,00 0 may have falsely elevated Potassium levels. ??For accurate Potassium quantif ication in these patients send serum separator tube (gold top) for subsequent determinations. ??Contact the Clinical Chemistry Laboratory if there are any qu estions. Chloride 102 98 - 107 mmol/L [facility]ORATORY CO2 21 (L) 22 - 31 mmol/L [facility] LABORATORY Anion Gap 13 5 - 15 mmol/L [facility] Calcium 8.3 (L) 8.5 - 10.5 mg/dL [facility] LAB[facility] Total Protein 5.7 (L) 6.1 - 8.0 gm/dL [facility] Albumin 2.7 (L) 3.2 - 5.2 gm/dL [facility] LABORATORY AST 366 (H) 0 - 39 unit/L [facility] ALT 345 (H) 0 - 55 unit/L [facility] Alk Phos 130 (H) 40 - 120 unit/L [facility] LABORATORY Total Bilirubin 8.3 (H) 0.2 - 1.3 mg/dL [facility] LABORATORY Estimated GFR 96 >=60 mL/min/1.73 m?? [facility] Comment: The eGFR was calculated using the CKD-EP I equation. As with all creatinine based estimates of kidney function, eGFR values calculated with the CKD-EPI equation are not accurate in patients wi th acute kidney failure, extremes of body mass or the acutely ill. [email or web address] [email or web address] [place] eGFR 111 >=60 mL/min/1.73 m?? [facility] LABORATORY Comment: The eGFR was calculated using the CKD-EP I equation. As with all creatinine based estimates of kidney function, eGFR values calculated with the CKD-EPI equation are not accurate in patients wi th acute kidney failure, extremes of body mass or the acutely ill. [email or web address] [email or web address] [place] Specimen Anatomical Collection Method Collection Time Receive d Time (Source) Location / / Volume Laterality Blood specimen 05/05/2018 6:32 PM 018 6:42 (specimen) EST PM EST Resulting Agency Comment Spec In Lab Krishna Collazo MD CHEMISTRY ORDERABLES Performing Organization Address City/State/[place] [address] (ABNORMAL) Hemogram (05/05/2018 6:32 PM EST) athologist Signature WBC 21.7 (H) 4.0 - 9.[address] [facility] x10(3)/[facility] LABORATORY RBC 3.68 (L) 4.58 - [facility] 5.[address] [facility] x10(6)/[facility] LABORATORY Hemoglobin 11.5 (L) 13.7 - [facility] 16.5 gm/dL [facility] Hematocrit 34.1 (L) 40.5 - [facility] 48.5 % [facility] MCV 92.7 82.9 - [facility] 93.1 [facility] LABORATORY Comment: Interpret results with Caution. Specimen rerun and specimen ID confirmed.. This result has been called to MARI STEPHENSON by Adri Pierson on 05 05 2018 at 1918, and has been read back. MCH 31.3 27.5 - 32.1 pg [facility]ORATORY MCHC 33.7 32.0 - 35.7 gm/dL [facility] LABORATORY Platelets 296 145 - 357 x10(3)/[facility] LABORATORY RDWSD 62.3 (H) 36.0 - 45.0 [facility] LABORATORY RDWCV 18.6 (H) 11.4 - 13.8 % [facility] LAB[facility]ORY MPV 10.5 7.6 - 12.9 [facility] LABORATORY nRBC % Auto 0.0 % [facility] LAB[facility]ATORY nRBC Abs Auto 0.000 0.000 - 0.000 x10(3)/[facility] LABORATORY Specimen Anatomical Collection Method Collection Time Receive d Time (Source) Location / / Volume Laterality Blood specimen 05/05/2018 6:32 PM 018 6:42 (specimen) EST PM EST Resulting Agency Comment Spec In Lab Krishna Collazo MD HEMATOLOGY ORDERABLES Performing Organization Address City/State/[place] [address] (ABNORMAL) BLOOD GAS 2 ARTERIAL (05/05/2018 2:02 PM EST) Analysis Performed At Patho logist Time Signature pH Art 7.37 7.35 - [facility] 7.45 [facility]ORATORY pCO2 Art 39 35 - [address] [facility] mmHg [facility]ORY pO2 Art 230 (H) 85 - 104 [facility] HCO3 Art 22.4 20.0 - [facility] 26.[address] [facility] mmol/L [facility] LABORATORY BE Art -2.8 -3.0 - 3.[address] [facility] mmol/L [facility] Hgb Blood Gas 12.8 (L) 13.7 - [facility] 16.5 gm/dL [facility] O2HB Art 98.0 (H) 94.0 - [facility] 97.0 % [facility] COHB Art 1.1 % [facility] Comment: Nonsmokers: 0.5-1.5% COHB Smokers: Variable, but usually less than 10% Toxic: 20-30% COHB Lethal: Greater than 60% COHB METHB Art 0.3 <=1.5 % [facility]OR[facility] Na Whole Blood 134 (L) 135 - 145 mmol/L [facility]ORY K Whole Blood 4.6 3.5 - 5.0 mmol/L [facility] Comment: Please note: Patients with WBC >100,000 may have falsely elevated Potassium levels. Contact the Clinical Chemistry L aboratory if there are any questions. ICa Whole Blood 1.11 (L) 1.15 - 1.33 mmol/L [facility] Comment: Note: ??Total bilirubin higher than 20 m g/dL may lead to falsely low ionized calcium. CL Whole Blood 106 98 - 107 mmol/L [facility] Gluc Whole Bld 142 65 - 199 mg/dL [facility] Comment: Diabetes: >=200 mg/dL plus symp toms. Lactate WB 1.1 0.5 - 2.2 mmol/L [facility] FIO2 Art 48 % [facility] PF Ratio Art 479 [facility] Temp Art 36.9 Celsius [facility] Specimen Anatomical Collection Method Collection Time Receive d Time (Source) Location / / Volume Laterality Blood specimen 05/05/2018 2:02 PM 018 2:02 (specimen) EST PM EST Krishna Collazo MD CHEMISTRY ORDERABLES Performing Organization Address City/[facility]/[place] [address] Specimen to Pathology (05/05/2018 1:38 PM EST) Specimen Anatomical Collection Method Collection Time Receive d Time (Source) Location / / Volume Laterality AP Specimen 05/05/2018 1:38 PM 8 1:49 EST PM EST [facility]ative [facility] 1:49 PM EST Specimen requisition ordered. ??Separate Pathology report to follow Resulting Agency Comment Spec In Lab Krishna Collazo MD PATHOLOGY/CYTOLOGY ORDERABLE S Performing Organization Address City/[facility]/[place] [address] Specimen to Pathology (05/05/2018 1:28 PM EST) Specimen Anatomical Collection Method Collection Time Receive d Time (Source) Location / / Volume Laterality AP Specimen 05/05/2018 1:28 PM 8 1:28 EST PM EST N[facility]ative [facility] 05/05/2018 1:28 PM EST Specimen requisition ordered. ??Separate Pathology report to follow Krishna Collazo MD PATHOLOGY/CYTOLOGY ORDERABLE S Performing Organization Address City/[facility]/ZIP [facility] [place] [address] (ABNORMAL) Anaerobic Culture (05/05/2018 11:57 AM EST) [facility] gist Method Time Signature Anaerobic Few Clostridium perfringens MA RY Culture Rare Prevotella species [facility] OCK (A) [facility] Organism Clostridium KAYY perfringens (A) [facility] LABORATORY Organism Prevotella KAYY species (A) [facility]ORATORY Specimen Anatomical Collection Method Collection Time Receive d Time (Source) Location / / Volume Laterality Bile specimen 05/05/2018 11:57 05/05/2018 2:15 (specimen) AM EST PM EST Resulting Agency Comment Spec In Lab Krishna Collazo MD MICROBIOLOGY - GENERAL ORDER GEE Performing Organization Address City/[facility]/[place] [address] (ABNORMAL) Body Fluid Culture, Aerobic (05/05/2018 11:57 AM EST) Component Value Ref Test Analysis [facility]formed [facility] [address] gist Range Method Time Signature Body Fluid Moderate Klebsiella pneumoniae KAYY Culture Moderate Streptococcus viridans group : two morphologies [facility] Gram Stain Cytocentrifuge Gram Stain performed KAYY Neutrophils seen FLATONIA Many Gram Negative [facility] Many Gram Positive [facility] Moderate Gram Positive Cocci in pairs LABORATORY Results called to and read back by Maria T Collazo ??05/05/18 14 :48:03 (A) Organism Klebsiella KAYY pneumoniae (A) [facility]ORY Organism Streptococcus KAYY viridans group [facility] Specimen Anatomical Collection Method Collection Time Receive d Time (Source) Location / / Volume Laterality Bile specimen 05/05/2018 11:57 05/05/2018 2:15 (specimen) AM EST PM EST Resulting Agency Comment Spec In Lab Organism Antibiotic Method Susceptibility Klebsiella pneumoniae Amikacin MICROSCAN METHOD Sensitive Klebsiella pneumoniae Ampicillin MICROSCAN METHOD Resistant Klebsiella pneumoniae Ampicillin + Sulbactam MICROSCAN METHOD Se nsitive Klebsiella pneumoniae Aztreonam MICROSCAN METHOD Sensitive Klebsiella pneumoniae Cefazolin MICROSCAN METHOD Sensitive Klebsiella pneumoniae Cefepime MICROSCAN METHOD <=4: Sens itive Klebsiella pneumoniae Ceftazidime MICROSCAN METHOD <=1: Sens itive Klebsiella pneumoniae Ceftriaxone MICROSCAN METHOD Sensitive Klebsiella pneumoniae Cefuroxime MICROSCAN METHOD Sensitive Klebsiella pneumoniae Ciprofloxacin MICROSCAN METHOD Sensitive Klebsiella pneumoniae Gentamicin MICROSCAN METHOD Sensitive Klebsiella pneumoniae Levofloxacin MICROSCAN METHOD Sensitive Klebsiella pneumoniae Meropenem MICROSCAN METHOD <=1: Sens itive Klebsiella pneumoniae Piperacillin/Tazobactam MICROSCAN METHOD < =16: Sensitive Klebsiella pneumoniae Tetracycline MICROSCAN METHOD Sensitive Klebsiella pneumoniae Tigecycline MICROSCAN METHOD Sensitive Klebsiella pneumoniae Tobramycin MICROSCAN METHOD Sensitive Klebsiella pneumoniae Trimethoprim/Sulfa MICROSCAN METHOD Sensit bekah Krishna Collazo MD MICROBIOLOGY - GENERAL ORDER GEE Performing Organization Address City/State/ZIP Code Phon e Number [address] Specimen to Pathology (05/05/2018 11:12 AM EST) Specimen Anatomical Collection Method Collection Time Receive d Time (Source) Location / / Volume Laterality AP Specimen 05/05/2018 11:12 05/05/2018 1:49 AM EST PM EST Narrative [facility] ORY - 05/05/2018 1:49 PM EST Specimen requisition ordered. ??Separate Pathology report to follow Resulting Agency Comment Spec In Lab Krishna Collazo MD PATHOLOGY/CYTOLOGY ORDERABLE S Performing Organization Address City/State/ZIP Code Phon e Number [place] [id number] [facility] LABORATORY Drive Surgical Pathology Report (05/05/2018 11:11 AM EST) Component Value Ref Test Analysis Performed At [facility] gist Range Method Time Signature Surgical [id number] ? Location: 2WST; 0210; B [facility] Report The signing pathologist has (i) examined the relevant preparation(s) for the [facility] specimen(s) and (ii) rendered or confirmed the diagnosis(es) . HOSPITAL LABORATORY . ?Surgic al Pathology DIAGNOSIS A - Head of pancreas, antrum, duodenum for frozen section Pancreatic ductal adenocarci noma, well-differentiated (pT2 N0), margins negative. See synoptic report. See dicussion #1. B - Common hepatic artery lymph node One lymph node negative for carcinoma (0 / 1). C - Gallbladder: Gallbladder within normal limits. Synoptic report: Specimen ? Procedure: ??Pancreaticoduo denectomy (Whipple resection), partial ?pancreatectomy Tumor ? Tumor Site: ??Pancreatic head ? Histologic Type: ?? Ductal adenocarcinoma ? Histologic Grade: ?? G1: Well differentiated ? Tumor Size: ?? 2.3 x 2 x 2 Centimeters (cm) ? Tumor Extent ?Tumor Exte nsion: ?? Tumor invades duodenal wall, Tumor invades ? peripancreatic soft tissues ? Accessory Findings ?Treatment Effect: ?? No known presurgical therapy ?Lymphovascular Invasion: ?? Not identified ?Perineural Invasion: ?? Present Margins ? Margins: ??All margins are uninvolved by invasive carcinoma and high-grade ?intraepithelial neoplasia ?Margins Examined: ?? P ancreatic neck / parenchymal, Uncinate ? (retroper itoneal / superior mesenteric artery), Bile duct, Proximal ? (gastric or duodenal), Distal (duodenal or jejunal), Vascular groove ?Distance o f Invasive Carcinoma from Closest Margin: ?3 Millimeters (mm) ?Closest Margin: ?? Vascular groove Lymph Nodes ? Number of Lymph Nodes Involved: ?0 ? Number of Lymph Nodes Examined: ?2 Pathologic Stage Classification (pTNM, AJCC 8th Edition) ? Primary Tumor (pT): ?? pT2 ? Regional Lymph Nodes (pN): ?? pN0 Additional Findings ? Additional Path ologic Findings: ?? Pancreatic intraepithelial neoplasia ?Highest Grade (PanIN): ?? 2 Tumor Block(s): ?? A6 Normal Block(s): ?? A1 . DIAGNOSIS CAP eCC May 2017 Agile Release Electronically signed by: ??Nicholas JENKINS PhD, Stalin Amaya Verified: ??05/12/2018 ?Pathologist Performed at: ??-[facility] Dept. of Pathology, [facility], [place], [place] DISCUSSION 1. Prior diagnosis questioni ng ductal adenocarcinoma vs mixed ductal and acinar carcinoma is noted. Immunoh istochemical and morphological features are consistent with ductal adenocarcinoma. No evidence of acinar differe ntiation is seen. ADDITIONAL STUDIES Immunohistochemistry Studies: Formalin-fixed, paraffin-emb edded tissue sections are studied using the polymer technique with appropriate positive and negative controls. ?These IHC studies provide the pathologist wit h adjunctive diagnostic information. Antibody specificity has been verified by testin g antibodies on a series of in-house tissues with known immunohistochemical perform ance characteristics. The clinical interpretation of any antibody positive stain ing or its absence is evaluated within the context of clinical presentation, morp hology, histopathological criteria and other diagnostic tests. Block ? Antibody ?Result (Positive /Negative) A6 ? CK7 ?Positive A6 ? Trypsin ?Equivocal A6 ? MUC1 ? Equivocal CLINICAL INFORMATION Specimen Submitted: A - Head of pancreas, antrum, duodenum for frozen section B - Common hepatic artery lymph node C - Gallbladder Clinical History and Diagnosis: _ FROZEN SECTION Pancreas cancer SPECIMEN PROCESSING A - Labeled/Fixative: Head of pancreas, antrum, duodenal, fr esh. SPECIMEN DESCRIPTION Resection Specimen: Whipple resection consisting of the head of pancreas, duodenum, antrum and attached of soft tissue. Integrity: Intact Overall Size: 30 x 8.5 x 5 cm LESION ??Location: Head of pancreas ??Description: Thornton-yellow rubbery homogeneous ??Relationship to pancreatic duct: Uninvolved ??Relationship to common bile duct: Surrounds/stenoses comm on bile duct ??Size: 2.3 x 2 x 2 cm ??Margins: ?? -7.5 cm from gastric margin. ?? -17.5 cm from duodenal margin. ?? -6.2 cm from pancreatic neck margin. ?? -5 cm from common Hepatic duct margin. ?? -6 cm cystic duct margin. ?? -0.3 cm from vascular groove margin. ?? -1 cm from uncinate margin. . SPECIMEN PROCESSING ?? -1 cm from posterior retroperitoneal margin. PANCREAS Size: 5.5 x 4 x 2.5 cm Parenchyma: Thornton yellow spongy Ducts: Patent pancreatic and common bile ducts DUODENUM ??Length/Diameter: 19 cm/1.5 cm ??Serosa: Thornton-pink unremarkable ??Mucosa: Thornton-pink with normal folds ??Ampulla of Vater: Thornton-pink , uninvolved by tumor Other: Lymph nodes: no lymph nodes are identified. Ink Designation: The posteri or retroperitoneal margin is inked black. The anterior serosal surface is inked red. Sections/Processing: Farm Operator sections in 12 cassettes as follows: ? A1: ??Remaining tissue from frozen section, pancreati c neck margin ? A2: ??Proximal gastric margin en face ? A3: ??Distal duodenal margin en face ? A4: ??Cystic duct and common hepatic duct margins en face ? A5: ??Normal pancreas ? A6-A9: ??Representati ve sections of tumor: (A6) tumor to closest anterior margin vascular groove and CBD, (A 7) tumor to duodenum, (A8) tumor to ampulla, (A9) tumor to PD and CBD ? A10: ??Closest SMA margin, posterior margin and PD to lesion ? A11: ??Farm Operator section of duodenum B - Labeled/Fixative: , Hepatic arterial lymph node, fresh. Quantity/Size: Single, 2 x 1.5 x 0.4 cm. Tissue Description: Single yellow lymph node Sections/Processing: Submitted en toto ??in 1 cassette as follows: ? B1: ??One lymph node serially sectioned into seven pi eces C - Labeled/Fixative: Gallbladder, fresh. Quantity/Size: ??Single, 6 x 3 x 2.5 cm. Specimen Description: Gallbladder, received intact. Serosa: Glistening thornton-pink Smooth Adventitia: Granular thornton-pink Lumen contents: Dark brown, , bile. Gallstones: Absent Mucosa: Smooth thornton-pink Wall: 0.3 cm thick. Duct: 0.5 cm. Ink Designation: The hepatic margin is inked black Sections/Processing: Farm Operator sections in 1 cassette as follows: ? C1: ??cystic duct margin and financial sales representative mucosa. ??malorie ?Fro colton Section FROZEN SECTION DIAGNOSIS FS-A (Pancreatic neck margin): Negative for carcinoma. 05/05/18 14:12 Electronically signed by: ??Nicholas JENKINS PhD, Stalin Amaya Verified: ??05/05/2018 ?Pathologist Performed at: ??-[facility] Dept. of Pathology, [place], [place] This intraoperative consultation should be interpreted as a preliminary diagnosis pending review of the entire specimen and sp ecial studies, if any. Specimen (Source) Anatomical Collection Method Collection Time Re ceived Time Location / / Volume Laterality 05/05/2018 11:11 AM EST Krishna Collazo MD PATHOLOGY/CYTOLOGY ORDERABLE S Performing Organization Address City/State/[place] [address] (ABNORMAL) BLOOD GAS 2 ARTERIAL (05/05/2018 10:14 AM EST) Analysis Performed At Patho logist Time Signature pH Art 7.39 7.35 - [facility] 7.45 [facility] LABORATORY pCO2 Art 38 35 - 45 [facility] LABORATORY pO2 Art 232 (H) 85 - 104 [facility] LABORATORY HCO3 Art 22.3 20.0 - [facility] 26.[address] [facility] mmol/L [facility] LABORATORY BE Art -2.7 -3.0 - 3.[address] [facility] mmol/L [facility] LABORATORY Hgb Blood Gas 11.7 (L) 13.7 - [facility] 16.5 gm/dL [facility] LAB[facility]ORY O2HB Art 98.6 (H) 94.0 - [facility] 97.0 % [facility] LABORATORY COHB Art 0.3 % [facility]ORY Comment: Nonsmokers: 0.5-1.5% COHB Smokers: Variable, but usually less than 10% Toxic: 20-30% COHB Lethal: Greater than 60% COHB METHB Art 0.3 <=1.5 % [facility] LABORATORY Na Whole Blood 135 135 - 145 mmol/L [facility] K Whole Blood 4.2 3.5 - 5.0 mmol/L [facility]ORY Comment: Please note: Patients with WBC >100,000 may have falsely elevated Potassium levels. Contact the Clinical Chemistry L aboratory if there are any questions. ICa Whole Blood 1.16 1.15 - 1.33 mmol/L [facility] Comment: Note: ??Total bilirubin higher than 20 m g/dL may lead to falsely low ionized calcium. CL Whole Blood 105 98 - 107 mmol/L [facility]ORY Gluc Whole Bld 116 65 - 199 mg/dL [facility] Comment: Diabetes: >=200 mg/dL plus symp toms. Lactate WB 0.8 0.5 - 2.2 mmol/L [facility] LABORATORY Specimen Anatomical Collection Method Collection Time Receive d Time (Source) Location / / Volume Laterality Blood specimen Arterial Draw / 05/05/2018 10:14 2017 4:07 (specimen) Unknown AM EST PM EST Resulting Agency Comment Spec In Lab Krishna Collazo MD CHEMISTRY ORDERABLES Performing Organization Address City/State/[place] [address] (ABNORMAL) BLOOD GAS 2 ARTERIAL (05/05/2018 10:14 AM EST) Analysis Performed At Patho logist Time Signature pH Art 7.39 7.35 - [facility] 7.45 [facility] LABORATORY pCO2 Art 38 35 - 45 [facility] LABORATORY pO2 Art 232 (H) 85 - 104 [facility] LABORATORY HCO3 Art 22.3 20.0 - [facility] 26.[address] [facility] mmol/L [facility] LABORATORY BE Art -2.7 -3.0 - 3.[address] [facility] mmol/L [facility] LABORATORY Hgb Blood Gas 11.7 (L) 13.7 - [facility] 16.5 gm/dL [facility] LABORATORY O2HB Art 98.6 (H) 94.0 - [facility] 97.0 % [facility] LABORATORY COHB Art 0.3 % [facility] LABORATORY Comment: Nonsmokers: 0.5-1.5% COHB Smokers: Variable, but usually less than 10% Toxic: 20-30% COHB Lethal: Greater than 60% COHB METHB Art 0.3 <=1.5 % [facility] LABORATORY Na Whole Blood 135 135 - 145 mmol/L [facility] K Whole Blood 4.2 3.5 - 5.0 mmol/L [facility] LABORATORY Comment: Please note: Patients with WBC >100,000 may have falsely elevated Potassium levels. Contact the Clinical Chemistry L aboratory if there are any questions. ICa Whole Blood 1.16 1.15 - 1.33 mmol/L [facility]OR[facility]ORY Comment: Note: ??Total bilirubin higher than 20 m g/dL may lead to falsely low ionized calcium. CL Whole Blood 105 98 - 107 mmol/L [facility]OR[facility]ORY Gluc Whole Bld 116 65 - 199 mg/dL [facility] LAB[facility] Comment: Diabetes: >=200 mg/dL plus symp toms. Lactate WB 0.8 0.5 - 2.2 mmol/L [facility] LABORATORY FIO2 Art 48 % [facility]ORATORY PF Ratio Art 483 [facility] LABORATORY Specimen Anatomical Collection Method Collection Time Receive d Time (Source) Location / / Volume Laterality Blood specimen Arterial Draw / 05/05/2018 10:14 2017 3:49 (specimen) Unknown AM EST PM EST Resulting Agency Comment Spec In Lab Krishna Collazo MD CHEMISTRY ORDERABLES Performing Organization Address City/State/[place] [address] ABORH Recheck Status (05/05/2018 6:07 AM EST) [facility] gist Method Time Signature ABORH Recheck Order Placed [facility] LABORATORY ABORH Type Not performed [facility] LABORATORY Specimen Anatomical Collection Method Collection Time Receive d Time (Source) Location / / Volume Laterality Blood specimen 05/05/2018 6:07 AM 018 6:15 (specimen) EST AM EST Resulting Agency Comment Spec In Lab Krishna Collazo MD BLOOD BANK ORDERABLES Performing Organization Address City/State/[place] [address] Antibody screen (05/05/2018 6:07 AM EST) Patholo gist Method Time Signature Ab Screen Negative [facility] LABORATORY Expires at 05/08/2018 KAYY OROZCOGARRET [id number] on: [facility] LABORATORY Specimen Anatomical Collection Method Collection Time Receive d Time (Source) Location / / Volume Laterality Blood specimen 05/05/2018 6:07 AM 018 6:15 (specimen) EST AM EST Resulting Agency Comment Spec In Lab Krishna Collazo MD BLOOD BANK ORDERABLES Performing Organization Address City/State/[place] [address] ABO/Rh Typing (05/05/2018 6:07 AM EST) P athologist Signature ABORh Type A Pos [facility] LABORATORY Specimen Anatomical Collection Method Collection Time Receive d Time (Source) Location / / Volume Laterality Blood specimen 05/05/2018 6:07 AM 018 6:15 (specimen) EST AM EST Resulting Agency Comment Spec In Lab Krishna Collazo MD BLOOD BANK ORDERABLES Performing Organization Address City/[facility]/[place] [address] documented in this encounter Visit Diagnoses Diagnosis Pancreatic cancer - Primary Malignant neoplasm of pancreas, part uns pecified Exocrine pancreatic insufficiency Other specified disease of pancreas Malignant neoplasm of head of pancreas Severe protein-calorie malnutrition Other severe protein-calorie malnutritio n documented in this encounter Admitting Diagnoses Diagnosis Pancreatic cancer Malignant neoplasm of pancreas, part uns pecified documented in this encounter Administered Medications Inactive Administered Medications - up to 3 most recent administrations Medication Order MAR Action Action Date Dose Rate Site acetaminophen (OFIRMEV) Given 05/08/2018 5:50 AM 1,000 mg 400 mL/hr injection 1,000 mg EST 1,000 mg, Intravenous, at 400 mL/hr, EVERY 8 HOURS SCHEDULED, 3 doses, First dose on Sat05/07/18 at 1400, Last dose on Sat05/08/18 at 0600, Maximum dose of acetaminophen is 4000 mg from all sources in 24 hours., Routine, Is ketorolac (Toradol) IV contraindicated? Yes, Can this patient tolerate oral medications or suppositories? No Given 05/07/2018 9:48 PM EST 1,000 mg 400 mL/hr Given 05/07/2018 1:44 PM EST 1,000 mg 400 mL/hr acetaminophen (OFIRMEV) injection Given 05/09/2018 6:[address] 1,000 mg 400 mL/hr 1,000 mg 1,000 mg, Intravenous, at 400 mL/hr, EVERY 8 HOURS SCHEDULED, 3 doses, First dose (after last reorder) on Marlen 05/08/18 at 1400, Last dose on Sat05/09/18 at 0600, Maximum dose of acetaminophen is 4000 mg from all sources in 24 hours., Routine, Is ketorolac (Toradol) IV contraindicated? Yes, Can this patient tolerate oral medications or suppositories? No Given 05/08/2018 10:39 PM EST 1,000 mg 400 mL/hr Given 05/08/2018 1:51 PM EST 1,000 mg 400 mL/hr acetaminophen (TYLENOL) tablet 650 mg Given 05/12/2018 5:37 AM EST 650 mg 650 mg, Oral, EVERY 6 HOURS SCHEDULED, First dose on Sat05/09/18 at 1200, Until Discontinued, Maximum dose of acetaminophen is 4000 mg from all sources in 24 hours., Routine Given 05/11/2018 5:10 PM EST 650 mg Given 05/11/2018 5:07 AM EST 650 mg bisacodyl (DULCOLAX) suppository 10 mg Given 05/08/2018 9:38 AM EST 10 mg 10 mg, Rectal, ONCE, 1 dose, On Marlen 05/08/18 at 0900, Routine dextrose 5% and sodium chloride New Bag 05/10/2018 3:32 AM EST 75 mL/hr 75 mL/hr 0.45% with potassium chloride 20 mEq infusion 75 mL/hr, Intravenous, CONTINUOUS, Starting on Sat05/06/18 at 0815, Until 05/10/18 at 0832, Warning Vesicant/Irritant Medication New Bag 05/09/2018 10:14 AM EST 75 mL/hr 75 mL/hr New Bag 05/08/2018 8:45 AM EST 75 mL/hr 75 mL/hr enoxaparin (LOVENOX) injection 40 mg Given 05/11/2018 8:17 PM EST 40 mg 40 mg, Subcutaneous, NIGHTLY, First dose on Sat05/07/18 at 2100, Until Discontinued, PATIENT TO SELF-ADMINISTER, Routine Given 05/10/2018 8:23 PM EST 40 mg Given 05/09/2018 8:19 PM EST 40 mg heparin (Porcine) subcutaneous injection Given 6:33 AM EST 5,000 Units 5,000 Units 5,000 Units, Subcutaneous, EVERY 8 HOURS SCHEDULED, First dose on Sat05/05/18 at 2200, Until Discontinued, Routine Given 05/06/2018 9:39 PM EST 5,000 Units Given 05/06/2018 2:48 PM EST 5,000 Units HYDROmorphone (DILAUDID) 1 mg/mL New Syringe/Cartridge 05/07/2018 7:3 2 PM EST DYSLEXIA TEACHER 50 mL Intravenous, DYSLEXIA TEACHER ONLY, Starting on Sat05/05/18 at 1845, Until Sat05/09/18 at 0847, Recovery (Recovery-Hospital Unit) New Syringe/Cartridge 05/05/2018 6:47 PM EST 50 mg HYDROmorphone (DILAUDID) 1 mg/mL DYSLEXIA TEACHER 50 Rate/Dose Change 9:15 AM EST mL Intravenous, DYSLEXIA TEACHER ONLY, Starting on Sat05/09/18 at 0915, Until Sat05/10/18 at 0832 HYDROmorphone (DILAUDID) injection 0.4-0 .6 mg Given 05/05/2018 7:43 PM EST 0.4 mg 0.4-0.6 mg, Intravenous, EVERY 5 MIN PRN, Starting on Sat05/05/18 at 1726, Until Sat05/05/18 at 2024, Pain, Give 0.4 mg every 5 minutes PRN for mild to moderate pain (1-5) Give 0.6 mg every 5 minutes PRN for moderate to severe pain (6-10). Hold for respiratory rate less than 10 per minute. Maximum dose 4 mg over one hour. If multiple pain medications are ordered, start with hydromorphone or morphine and use fentanyl for breakthrough pain., PACU Recovery, Routine Given 05/05/2018 7:15 PM EST 0.6 mg Given 05/05/2018 7:02 PM EST 0.6 mg insulin lispro (HumaLOG) VIAL injection 1-4 Given 06/2018 4:00 PM EST 2 Units Units 1-4 Units, Subcutaneous, EVERY 4 HOURS SCHEDULED, First dose on Sat05/07/18 at 1200, Until Discontinued, CORRECTION BOLUS Sensitive to insulin lean patient or total daily dose of all insulin needed to achieve glycemic control less than 30 units BG 140 - 160 Give 1 unit BG 161 - 200 Give 2 units BG 201 - 240 Give 3 units BG greater than 240, give 4 units and recheck BG in 2 hours. If less than 240 after two hours, give no insulin and resume prior schedule. If BG remains greater than 240, repeat 4 units (no more than three times) & call for new basal insulin orders. DO NOT hold if NPO, unless specifically told to do so., Routine lactated Ringers 1,000 mL IV bolus New Bag 05/05/2018 6:27 PM EST Intravenous, ONCE, 1 dose, On Sat05/05/18 at 1845 lactated Ringers infusion New Bag 05/05/2018 7:16 PM EST 150 mL/hr 150 mL/hr 150 mL/hr, Intravenous, CONTINUOUS, Starting on Sat05/05/18 at 1845, Until Sat05/05/18 at 2024, Day of Surgery (Day of Procedure) pxrqcx-vzufdekv-mombdxn (CREON 24) Given 05/10/2018 5:00 PM EST 1 capsule 24,000-76,000 -120,[address] 1 capsule 1 capsule, Oral, 3 TIMES DAILY WITH MEALS, First dose (after last modification) on Sat05/10/18 at 1700, Until Discontinued, Routine gmnmfv-dzfqxhur-jegdpmp (CREON 24) Given 05/12/2018 11:10 AM EST 2 capsules 24,000-76,000 -120,[address] 1-2 capsule 1-2 capsule, Oral, 3 TIMES DAILY WITH MEALS, First dose (after last modification) on Sat05/11/18 at 1200, Until Discontinued, Per patient, Routine Given 05/12/2018 8:26 AM EST 2 capsules Given 05/11/2018 4:58 PM EST 2 capsules hvpkrd-ggwynjqb-waxfliy (CREON 6) 6,000- 19,000 -30,[address] 1 capsule 1 capsule, Oral, WITH SNACKS, Starting o n 05/10/18 at 1329, Until Sat05/12/18 at 1550, Routine magnesium sulfate 1g in dextrose 5% New Bag 05/06/2018 9:00 AM EST 1 g 100 mL/hr 100mL 1 g, Intravenous, EVERY HOUR, 2 doses, First dose on Sat05/06/18 at 0800, Last dose on Sat05/06/18 at 0900, Administer over 60 Minutes New Bag 05/06/2018 8:28 AM EST 1 g 100 mL/hr metoclopramide (REGLAN) injection 10 mg Given 05/12/2018 5:33 AM EST 10 mg 10 mg, Intravenous, EVERY 6 HOURS SCHEDULED, First dose (after last modification) on Marlen 05/08/18 at 1200, Until Discontinued, Doses greater than 10mg should be diluted into 50ml NS. Given 05/12/2018 12:11 AM EST 10 mg Given 05/11/2018 5:10 PM EST 10 mg metoclopramide (REGLAN) tablet 10 mg Given 05/12/2018 11:10 AM EST 10 mg 10 mg, Oral, 4 TIMES DAILY BEFORE MEALS & NIGHTLY, First dose on Sat05/12/18 at 1130, Until Discontinued, GIVE REGARDLESS OF IF EATING OR NOT, Routine ondansetron (ZOFRAN) injection 4-8 mg Given 05/10/2018 8:51 PM EST 4 mg 4-8 mg, Intravenous, EVERY 8 HOURS PRN, Starting on Sat05/05/18 at 2034, Until Sat05/12/18 at 0829, Nausea, Vomiting, If multiple antiemetics are ordered, use ondansetron first Start with 4 mg. May repeat times one in 30 minutes if ineffective. ondansetron (ZOFRAN-ODT) oral disintegra ting tablet 4 mg 4 mg, Oral, EVERY 8 HOURS PRN, Starting on Sat05/12/18 at 0827, Until Sat05/12/18 at 1550, Nausea, Routine oxyCODONE (ROXICODONE) immediate release tablet 5 mg 5 mg, Oral, EVERY 8 HOURS PRN, Starting on Sat05/12/18 at 0828, Until Sat05/12/18 at 1550, Pain, FOR PAIN UNCONTROLLED BY TYLENOL, Routine pantoprazole (PROTONIX) injection 40 mg Given 05/12/2018 8:26 AM EST 40 mg 40 mg, Intravenous, 2 TIMES DAILY, First dose on Sat05/05/18 at 2100, Until Discontinued Given 05/11/2018 8:17 PM EST 40 mg Given 05/11/2018 8:38 AM EST 40 mg pantoprazole (PROTONIX) tablet 40 mg 40 mg, Oral, 2 TIMES DAILY, First dose o n Sat05/12/18 at 2100, Until Discontinued, DO NOT CRUSH OR OPEN, Routine piperacillin-tazobactam (ZOSYN) New Bag 05/12/2018 5:33 AM 3.375 g 12.5 mL/hr 3.375 g vial attach to sodium EST chloride 0.9% 50 mL Mini-Bag Plus 3.375 g, Intravenous, EVERY 8 HOURS, 22 doses, First dose on Sat05/05/18 at 1845, Last dose on Sat05/12/18 at 1430, Administer over 4 Hours, Warning Vesicant/Irritant Medication Do not administer or Y-site with lactated ringers., Recovery (Recovery-Hospital Unit), Indication for (Active or Suspected): GI/Intra-abdominal New Bag 05/11/2018 10:07 PM EST 3.375 g 12.5 mL/hr New Bag 05/11/2018 2:53 PM EST 3.375 g 12.5 mL/hr potassium chloride 10 mEq in 100 New Bag 05/08/2018 12:[address] 10 mEq 100 mL/hr mL 10 mEq, Intravenous, EVERY 2 HOURS, 2 doses, First dose on Marlen 05/08/18 at 1030, Last dose on Sat05/08/18 at 1230, Administer over 60 Minutes, Warning Vesicant/Irritant Medication New Bag 05/08/2018 11:06 AM EST 10 mEq 100 mL/hr potassium chloride 10 mEq in 100 New Bag 05/09/2018 11:[address] 10 mEq 100 mL/hr mL 10 mEq, Intravenous, EVERY 2 HOURS, 2 doses, First dose (after last reorder) on Sat05/09/18 at 0915, Last dose on Sat05/09/18 at 1115, Administer over 60 Minutes, Warning Vesicant/Irritant Medication New Bag 05/09/2018 10:40 AM EST 10 mEq 100 mL/hr senna-docusate (PERICOLACE) 8.6-50 mg per Given 2018 8:26 AM EST 2 tablets tablet 2 tablet 2 tablet, Oral, 2 TIMES DAILY, First dose on Sat05/09/18 at 0915, Until Discontinued, Routine Given 05/11/2018 8:17 PM EST 2 tablets Given 05/11/2018 8:40 AM EST 1 tablet sodium chloride 0.9 % flush 5 mL Given 05/12/2018 8:26 AM EST 5 mLs 5 mL, Intravenous, 2 TIMES DAILY, First dose on Sat05/05/18 at 2100, Until Discontinued, Recovery (Recovery-Hospital Unit), Routine Given 05/11/2018 8:22 PM EST 5 mLs Given 05/11/2018 9:00 AM EST 5 mLs sodium chloride 0.9% infusion New Bag 05/06/2018 4:43 AM EST 125 mL/hr 125 mL/hr 125 mL/hr, Intravenous, CONTINUOUS, Starting on Sat05/05/18 at 2100, Until Sat05/06/18 at 0746 New Bag 05/05/2018 9:21 PM EST 125 mL/hr 125 mL/hr sodium phosphate 15 mMol in New Bag 05/07/2018 10:33 AM EST 15 mmo l 37.5 mL/hr sodium chloride 0.9% 150 mL 15 mmol, Intravenous, ONCE, 1 dose, On Sat05/07/18 at 1030, Administer over 4 Hours, Administer over 4-6 hours documented in this encounter Active and Recently Administered Medications Times are shown in EST. Scheduled Medication Order 05/10/2018 05/11/2018 05/12/2018 acetaminophen (TYLENOL) tablet 650 mg 0505 (Given - Pr ovider: Janeth Figueredo RN)1230 (Given - Provider: Radha Hill RN)1807 (Given - Provider: Deb Vasquez RN) 0000 (Not Given - Provider: Janeth camilo RN - Reason: Patient/family refused)0507 (Given - Provider: Janeth Figueredo RN)1200 (Not Given - Provider: Cammy Gil - Reason: Patient/family refused)1710 (Given - Provider: Cammy Gil) 0000 (Not Given - Provider: Janeth camilo RN - Reason: Patient/family refused)0537 (Given - Provider: Janeth Figueredo RN)1110 (Not Given - Provider: Andrez Wong RN - Reason: Patient/family refused) 650 mg, Oral, EVERY 6 HOURS SCHEDULED, F irst dose on Sat05/09/18 at 1200, Until Discontinued, Maximum dose of acetaminophen is 4000 mg from all sources in 24 hours., Routine enoxaparin (LOVENOX) injection 40 mg 2022 (Given - Pro vider: Janeth Figueredo RN) 2016 (Given - Provider: Janeth Figueredo RN) 40 mg, Subcutaneous, NIGHTLY, First dose on Sat05/07/18 at 2100, Until Discontinued, PATIENT TO SELF-ADMINISTER, Routine vtijkx-hctgdxxh-fpcjtqt (CREON 24) 24,00 0-76,000 -120,[address] 1 capsule (CANCELED) 1700 (Given - Provider: Deb Vasquez RN) 1 capsule, Oral, 3 TIMES DAILY WITH MEAL S, First dose on Sat05/10/18 at 1700, Until Discontinued, Routine lfbqap-ciosgdcl-jpwpnhu (CREON 24) 24,00 0-76,000 -120,[address] 1-2 capsule 1210 (Given - Provider: Piero Gil)1658 (Given - Provider: Cammy Gil) 0826 (Given - Provider: Andrez Wong RN)1110 (Given - Provider: Andrez Wong RN) 1-2 capsule, Oral, 3 TIMES DAILY WITH ME ALS, First dose on Sat05/11/18 at 1200, Until Discontinued, Per patient, Routine vxpowm-gmtsagga-kokamwt (CREON 6) 6,000- 19,000 -30,[address] 1 capsule 1 capsule, Oral, WITH SNACKS, Starting S at 05/10/18 at 1329, Until 05/12/18 at 1550, Routine metoclopramide (REGLAN) injection 10 mg (CANCELED) 050 5 (Given - Provider: Janeth Figueredo RN)1230 (Given - Provider: Radha Hill RN)1807 (Given - Provider: Deb Vasquez RN)2328 (Given - Provider: Janeth Figueredo RN) 0507 (Given - Provider: Janeth Figueredo RN)1200 (Not Given - Provider: Cammy Gil - Reason: Patient/family refused)1710 (Given - Provider: Cammy Gil) 0011 (Given - Provider: Janeth Figueredo RN)0533 (Given - Provider: Janeth Figueredo RN) 10 mg, Intravenous, EVERY 6 HOURS SCHEDU LED, First dose on Marlen 05/08/18 at 1200, Until Discontinued, Doses greater than 10mg should be diluted into 50ml NS. metoclopramide (REGLAN) tablet 10 mg 1110 (Given - Provider: Andrez Wong, SHAWANDA) 10 mg, Oral, 4 TIMES DAILY BEFORE MEALS & NIGHTLY, First dose on Sat05/12/18 at 1130, Until Discontinued, GIVE REGARDLESS OF IF EATING OR NOT, Routine pantoprazole (PROTONIX) injection 40 mg (CANCELED) 083 7 (Given - Provider: Deb Vasquez RN)2022 (Given - Provider: Janeth Figueredo RN) 0838 (Given - Provider: Cammy Gil)2017 (Given - Provider: Janeth Figueredo RN) 0826 (Given - Provider: Andrez Wong, SHAWANDA) 40 mg, Intravenous, 2 TIMES DAILY, First dose on Sat05/05/18 at 2100, Until Discontinued pantoprazole (PROTONIX) tablet 40 mg 40 mg, Oral, 2 TIMES DAILY, First dose o n Sat05/12/18 at 2100, Until Discontinued, DO NOT CRUSH OR OPEN, Routine piperacillin-tazobactam (ZOSYN) 3.375 g vial attach to sodium chloride 0.9% 50 mL Mini-Bag Plus (CANCELED) 0211 (Stopped - Provider: Janeth garcia RN)0505 (New Bag - Provider: Janeth Figueredo RN)0905 (Stopped - Provider: Deb Vasquez RN)1431 (New Bag - Provider: Deb Vasquez, SHAWANDA)1831 (Stopped - Provider: Deb Vasquez, SHAWANDA) 0132 (Stopped - Provider: Janeth garcia RN)0507 (New Bag - Provider: Janeth Figueredo RN)0907 (Stopped - Provider: Cammy Gil)1453 (New Bag - Provider: Cammy Gil)1853 (Stopped - Provider: Janeth Figueredo RN) 0207 (Stopped - Provider: Janeth garcia RN)0533 (New Bag - Provider: Janeth Figueredo RN)0933 (Stopped - Provider: Andrez Wong, RN) 3.375 g, Intravenous, EVERY 8 HOURS, 22 doses, First dose on Sat05/05/18 at 1845, Last dose on Sat05/12/18 at 1430, Administer over 4 Hours, Warning Vesicant/Irritant Medication Do not administer 2132 (New Bag - Provider: Janeth Figueredo RN) 2207 (New Bag - Provider: Janeth Figueredo RN) or Y-site with lactated ringers., Recove ry (Recovery-Hospital Unit), Indication for (Active or Suspected): GI/Intra-abdominal senna-docusate (PERICOLACE) 8.6-50 mg per tablet 2 tab let 0838 (Given - Provider: Deb Vasquez RN)2022 (Given - Provider: Janeth Figueredo RN) 0840 (Given - Provider: Cammy Gil)2016 (Given - Provider: Janeth Figueredo RN) 0826 (Given - Provider: Andrez Wong, SHAWANDA) 2 tablet, Oral, 2 TIMES DAILY, First dos e on Sat05/09/18 at 0915, Until Discontinued, Routine sodium chloride 0.9 % flush 5 mL 0838 (Given - Provide r: Deb Vasquez RN)2023 (Given - Provider: Janeth Figueredo RN) 0900 (Given - Provider: Cammy Gil)2021 (Given - Provider: Janeth Figueredo, SHAWANDA) 0826 (Given - Provider: Andrez Wong, SHAWANDA) 5 mL, Intravenous, 2 TIMES DAILY, First dose on Sat05/05/18 at 2100, Until Discontinued, Recovery (Recovery-Hospital Unit), Routine Continuous Medication Order 05/10/2018 05/11/2018 05/12/2018 dextrose 5% and sodium chloride 0.45% wi th potassium chloride 20 mEq infusion (CANCELED) 331 (New Bag - Provider: Virginia esteves, RN)0800 (Stopped - Provider: Deb Vasquez RN) 75 mL/hr, at 75 mL/hr, Intravenous, CONT INUOUS, Starting 05/06/18 at 0815, Until 05/10/18 at 0832, Warning Vesicant/Irritant Medication PRN Medication Order 05/10/2018 05/11/2018 05/12/2018 lidocaine (XYLOCAINE) 10 mg/mL (1 %) injection 3 mg 3 mg (0.3 mL), Subcutaneous, ONCE PRN, 1 dose, Starting 05/05/18 at 2034, Until 05/12/18 at 1550, for discomfort with PIV insertion, Recovery (Recovery- Hospital Unit), Routine nalOXone (NARCAN) injection 0.2 mg 0.2 mg, Intravenous, EVERY 1 MIN PRN, St arting 05/05/18 at 2034, Until 05/12/18 at 1550, Opioid Reversal, May repeat every 60 seconds to increase respiratory rate. DO NOT exceed 2 mg total dose. * * Per DYSLEXIA TEACHER order., Recovery (Recovery-Hospital Unit), Routine ondansetron (ZOFRAN) injection 4-8 mg (CANCELED) 2050 (Given - Provider: Janeth Figueredo, SHAWANDA) 4-8 mg, Intravenous, EVERY 8 HOURS PRN, Starting 05/05/18 at 2034, Until 05/12/18 at 0829, Nausea, Vomiting, If multiple antiemetics are ordered, use ondansetron first Start with 4 mg. May repeat times one in 30 minutes if ineffective. ondansetron (ZOFRAN-ODT) oral disintegrating tablet 4 mg 4 mg, Oral, EVERY 8 HOURS PRN, Starting Sat05/12/18 at 0827, Until 05/12/18 at 1550, Nausea, Routine oxyCODONE (ROXICODONE) immediate release tablet 5 mg 5 mg, Oral, EVERY 8 HOURS PRN, Starting 05/12/18 at 0828, Until 05/12/18 at 1550, Pain, FOR PAIN UNCONTROLLED BY TYLENOL, Routine sodium chloride 0.9 % flush 5-20 mL 5-20 mL, Intravenous, EVERY 1 MIN PRN, S tarting 05/05/18 at 2034, Until Sat05/12/18 at 1550, flush, Flush pertains to all indwelling lines. Flush per protocol found in the job aid using the link prov ided on this medication record., Recovery (Recovery-Hospital Uni t), Routine documented in this encounter Care Teams Maintenance Department Manager Relationship Specialty Start Date End Date Corrie Pacheco APRN PCP - General Family Medicine 04/04/18 [address] [place] [place] [address] documented as of this encounter
--- OUTSIDE RECORDS SUMMARY | 2022-02-23 01:45 | XMS_ITS | Encounter Summary ---
:1960 Author Organization [facility] [place] [address] Care Team Providers Name Role Phone Corrie Pacheco APRN Primary Care Provider Reason for Visit Auth/Cert Specialty Diagnoses / Procedures Referred By Contact Refer red To Contact Diagnoses Pancreas cancer PANCREAS CANCER Procedures PRO LAP, DX SURGICAL ABD W/BIOPSY LAPAROSCOPY,SURGICAL,WITH BIOPSY, SINGLE OR MULTIPLE (WRVU 5.44) Referral ID Status Reason Start Date Expiration Date Visits Requ ested Visits Authorized [id number] 1 1 Encounter Details Date Type Department Care Team Description 04/23/2018 Surgery Outpatient Surgery Lázaro Collazo L APAROSCOPY, Center Alice Combs MD DIAGNOSTIC, ABDOMEN [facility] (WRVU 5.14) [place] [address] [place] [address] [phone] Social History Tobacco Use Types Packs/Day Years [...] Sign Reading Time Taken Comments Blood Pressure 109/62 04/23/2018 12:23 PM EST Pulse 55 04/23/2018 12:23 PM EST Temperature 36.9 ??C (98.4 ??F) 04/23/2018 12:23 PM EST Respiratory Rate 14 04/23/2018 12:23 PM EST Oxygen Saturation 100% 04/23/2018 12:23 PM EST Inhaled Oxygen Concentration - - Weight 69.4 kg (153 lb) 04/23/2018 12:23 PM EST Height 172.7 cm (5' 8) 04/23/2018 12:23 PM EST Body Mass Index 23.26 04/23/2018 12:23 PM EST documented in this encounter Discharge Instructions Discharge InstructionsArmani Schumacher RN - 04/23/2018 12:26 PM EST General Anesthesia Discharge Instructions Go home and rest. You may be sleepy for several hours. Take it easy as sudden position changes may cause nausea and/or dizziness. Use caution on stairs. Do not smoke if you are alone. Follow a light to regular diet as tolerated today. If nausea occurs, start with clear liquids, and progress slowly to a regular diet. Do not drive, operate machinery, drink alcoholic beverages or make any legal decisions after having general anesthesia. The medications given change your reaction time and alter your judgement. IV site -- slight redness is normal, you can use warm compresses. If tenderness and redness increases or foul drainage occurs, please contact your M.D. Patients who have had endotracheal tubes/LMA (tubes used by the anesthesia staff to ensure a safe airway during your operation) may have a sore throat. This is normal and cold liquids or soothing lozenges will help ease this discomfort. Narcotic pain medications can cause constipation, please ask the surgeons office what they recommendfor prevention of this. Some non-pharmaceutical means of constipation prevention include increasing intake of fluids, eating more fruits and vegetables as well as fruit juices. If you are uncomfortable and/or unable to urinate within 8 hours of discharge and it is before 5 pm,call your physician. If it is after 5pm go to the closest emergency room or call the hospital operator helper at [phone] and ask for physician distance education director covering for your physician. Questions or problems after 5pm or on a weekend: Call the [facility] operator helper at and ask for the physician distance education director covering for your doctor. Patient InstructionsAimee Monreal MD - 04/23/2018 4:03 PM EST Instructions following Laparoscopic Surgery Wound Care: Keep dressings/Band-Aids on incisions for the next 2 days. Do not get dressings wet. If they become wet or soaked with drainage you may change them with fresh ones as needed. If there are pieces of tape directly on the incision (steri-strips or butterflys), please leave them on until they fall off on their own. You may trim them back as they begin to peel up. After 2 days you may remove dressing/Band-Aids and leave open to air. You may now shower and get incisions wet. Pat dry immediately following. Do not scrub them vigorously for the next 2-3 weeks. Do not soak incision(s) under water for the next 2 weeks (i.e. soaking in bath or swimming) as this may promote a wound infection. Your stitches will dissolve and do not need to be removed. Activity: No heavy lifting more than 15 pounds for the next 4 weeks, then you may gradually lift heavier objects as tolerated by discomfort. Otherwise activity as tolerated by your comfort level. Driving: Do not drive while taking narcotic pain medications. If you are no longer taking pain medication, it should safe to drive when it no longer hurts gettingin and out of the vehicle, and when you can quickly move your leg from the gas to the brake pedal without it causing pain. Diet: You have no restrictions to your diet. Call Doctor for: Please call if you notice worsening redness or drainage from incision(s) lasting longer than 5 days after your surgery, any foul-smelling drainage from the incision, pain not controlled by pain medications, persistent nausea and vomiting, or for any fevers greater than 101.3 F. The number for questions is [phone] before 5 PM weekdays and [phone] after 5 PM and weekends. Pain Medication: -Take the medication exactly as it is prescribed and make sure to read all instructions that come with the medication. -Over the next couple of days you should be requiring less of this medication to control your pain, so that eventually you will not need any at all. You do not have to take all of the medication that was prescribed, you may have some left over. -You may use ibuprofen (motrin, advil) or tylenol in addition to this medication if your pain is notcontrolled. -Taking more than the prescribed amount of medication or using with alcohol or other drugs can causeyou to stop breathing resulting in coma, brain damage or . -Opioids can slow reaction time, cause drowsiness or cloud judgement. No driving for 8 hours after any dose of opioid pain medication if one was prescribed for you. -Using this drug may cause addiction. While addiction is more common in people with a personal or family history of addiction, it can occur in anyone. -Opioids are at risk of being diverted by anyone with access to your home. Opioids should be stored in a safe and secure place, such as a locked cabinet or safe. -Unused opioids should be disposed of appropriately. They may be returned to a take-back location, or mixed with a small amount of water and poured over an undesirable waste such as used coffee groundsor cat litter. -Please note that most pain medications can cause constipation. You may use a stool softener such asMiralax to prevent this. Other Means for Pain Relief: Other than medications. ?? Learn deep breathing exercises or meditation to help you relax ?? Reduce stress ?? Your body produces natural endorphins from exercise which can help reduce pain. Even walking is considered exercise. Talk with your provider/surgical team about what exercises are appropriate for you to perform. ?? You may use a heating pad or apply ice to the painful area unless specifically discouraged by thesurgical team. ?? Find ways to distract yourself from the pain. Other Medications: There have been no changes to your other medications. Please resume taking them as you had been prior to this hospitalization. Follow-up: Dr. Collazo's office will contact you With further instructions about your surgery. documented in this encounter Medications at Time [...] times daily Capsule as needed for Constipation. bpkjmm-jnksqglr-sjjoar Take 1-2 capsules by 270 capsule 3 [...] mL Syringe subcutaneously nightly for 22 days. xppjgr-pfztruft-repjsk Take 1-3 capsules by 270 capsule 3 05/12/2018 e (CREON) mouth 3 times daily 24,000-76,000 -120,000 (with meals). unit Capsule, Delayed Release(E.C.)Indicatio ns: Exocrine pancreatic insufficiency omeprazole (PRILOSEC) Take 1 capsule by 90 capsule 3 018 05/19/2018 40 mg Capsule, Delayed mouth daily for 360 Release(E.C.)Indicatio days. ns: Exocrine pancreatic insufficiency documented as of this encounter Progress Notes Magui Gibson RN - 04/23/2018 4:21 PM EST Discharge instructions and medications reviewed with patient and Demi. All questions answered and written copy sent home with patient. documented in this encounter H&P Notes Lázaro Collazo MD - 04/23/2018 3:01 PM EST Patient Name: Jaciel Combs Patient Age: 57 y.o. Birthdate: 1960 Admit date: 04/23/2018 Attending Physician: Lázaro Collazo MD I saw Jaciel and his Demi in the pre op holding area. Ok to proceed with diagnostic laparoscopy with possible biopsy. We are not planning to place the mediport as he will be having whipple and plan for chemotherapy after. Estlea Collazo MD 04/23/2018 3:03 PM documented in this encounter Miscellaneous Notes Op Note - Lázaro Collazo MD - 04/23/2018 4:00 PM EST [facility] [place] Patient Name: Jaciel Combs : [id number] MR#: [id number] Case Date: 04/23/2018 Surgeon: Surgeon(s) and Role: * Lázaro Collazo MD - Primary * Aimee Monreal MD - Resident-Surgeon Chief Preoperative diagnosis: PANCREAS CANCER Postoperative diagnosis: Same Procedure(s) (LRB): LAPAROSCOPY, DIAGNOSTIC, ABDOMEN (WRVU 5.14) (N/A) Findings: Laparoscopic exploration showed no metastases- the liver looked dark consistent with recent biliary obstruction but no surface nodules. The gallbladder was somewhat thickened and distended. No peritoneal, omental or serosal nodules. No ascites. No biopsy was performed. Anesthesia: General Estimated Blood Loss: 5 cc Specimens removed during surgery: None Drains: None. Surgical Closure: Primary Closure - skin incision is completely closed without any wires, sarah, drains or other devices Disposition: awakened from anesthesia, extubated and taken to the recovery room in a stable condition, having suffered no apparent untoward event. 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 No radiographic evidence for metastatic disease. Diagnosticlaparoscopy for staging. Procedure Description: Mr. Combs was identified in the preop holding area and taken to the operating room and placed supine on the operating table. Monitoring lines and Venodyne boots were placed. General anesthesia was induced and he was intubated without complication. His abdomen was prepped with Chloraprep and draped in the usual fashion. Ancef was administered IV prior to skin incision. A 12 mm port incision was made in the supra umbilical location to allow the Sendy port to be placedinto the abdomen under direct visualization with no injury to underlying intra-abdominal organs. Theport was secured to the fascia with 0-vicryl stay stiches. Pneumoperitoneum was obtained. One additional 5 mm port was placed under direct visualization after local injection into the right abdomen. Laparoscopic exploration showed the following: No evidence for any metastatic disease - see findings detailed above. The undersurface of the left lateral segment was lifted with a wendy and then the GB was retracted superiorly with the patient in the reverse trendelenberg postion to allow the undersurface of segmentII, III and IVb V to be visualized with no surface nodules appreciated. The liver appeared dark but healthy appearing. No surface nodules. The remaining ports were removed under direct visualization. The 12 mm port incision fascia was closed with interrupted 0-vicryl stiches. The port skin incisions were closed with 4-0 Monocryl subcuticular stiches. Dermabond was used to cover the incisions. Mr. Combs was awakened from anesthesia, extubated and brought to the recovery room in stable condition. I was present from start to finish. Infection Bundle used? N/A Attestation: Case Date: 04/23/2018 I was present and I participated during the entire procedure (does not need to include opening and closing). LÁZARO COLLAZO MD 04/23/2018 documented in this encounter Plan of Treatment Upcoming Encounters Date Type Specialty Care Team Description 02/23/2022 Office Visit Hematology and Oncology Gigi Sosa MD [facility] [address] Ebonie Gordon, [address] [address] documented as of this encounter Procedures Procedure Name Priority Date/Time Associated Diagnosis Comme nts HEPATIC FUNCTION Routine 04/23/2018 3:33 PM Resul ts for this PANEL EST procedure are i n the results section. LAPAROSCOPY, Yes 04/23/2018 3:13 PM pancreas cancer DIAGNOSTIC, ABDOMEN EST (WRVU 5.14) documented in this encounter Results (ABNORMAL) Hepatic Function Panel (04/23/2018 3:33 PM EST) [facility] Method Time Signature Total Protein 5.8 (L) 6.1 - 8.0 [facility] Albumin 2.8 (L) 3.2 - 5.2 [facility] g[facility]dL [facility] AST 77 (H) 0 - 39 [facility] unit/L [facility] ALT 85 (H) 0 - 55 [facility] unit/L [facility] Alk Phos 239 (H) 40 - 120 [facility] unit/L [facility] Total 15.9 (H) 0.2 - 1.3 [facility] Bilirubin mg/dL [facility] Bili, Direct >10.0 (H) 0.0 - 0.3 [facility] Specimen Anatomical Collection Method Collection Time Receive d Time (Source) Location / / Volume Laterality Blood specimen 04/23/2018 3:33 PM 018 3:51 (specimen) EST PM EST Resulting Agency Comment Spec In Lab Andrez Drummond MD CHEMISTRY ORDERABLES Performing Organization Address City/State/ZIP Code Phon e Number [place] [phone] documented in this encounter Visit Diagnoses Not on filedocumented in this encounter Administered Medications Inactive Administered Medications - up to 3 most recent administrations Medication Order MAR Action Action Date Dose Rate Site acetaminophen (TYLENOL) tablet 650 Given 04/23/2018 4:32 PM EST 650 mg mg 650 mg, Oral, EVERY 4 HOURS PRN, Starting on Sat04/23/18 at 1604, Until Sat04/23/18 at 191, Pain, Maximum dose of acetaminophen is 4000 mg from all sources in 24 hours., Routine BUpivacaine (PF) (MARCAINE) Given 04/23/2018 3:58 PM EST 2 mLs 19- Surgical Site 0.25 % (2.5 mg/mL) injection ONCE PRN, Starting on Sat04/23/18 at 1551, Until Sat04/23/18 at 1912, Intra-Operative (Intra-Procedure), Routine Given 04/23/2018 3:51 PM EST 8 mLs 19- S urgical Site ibuprofen (ADVIL;MOTRIN) tablet 600 mg 600 mg, Oral, EVERY 6 HOURS PRN, Starting on 04/23 at 1604, Until Sat04/23/18 at 191, Pain, Administer orally with milk or food to minimize GI irritation. Maximum dose of 3200 mg from all sources i n 24 hours, Routine lactated Ringers infusion 1,000 New Bag 04/23/2018 12:44 PM ES T 1,000 mLs 100 mL/hr mL 1,000 mL, at 100 mL/hr, Intravenous, CONTINUOUS, Starting on Sat04/23/18 at 1230, Until Sat04/23/18 at 1711, Day of Surgery (Day of Procedure) documented in this encounter Active and Recently Administered Medications Times are shown in EST. Continuous Medication Order 04/21/2018 04/22/2018 04/23/2018 lactated Ringers infusion 1,000 mL (CANCELED) 1244 (New Bag - Provider: Armani Schumacher, RN) 1,000 mL, at 100 mL/hr, Intravenous, CON TINUOUS, Starting Sat04/23/18 at 1230, Until Sat04/23/18 at 1711, Day of Surgery (Day of Procedure) PRN Medication Order 04/21/2018 04/22/2018 04/23/2018 acetaminophen (TYLENOL) tablet 650 mg 1632 (Given - Provider: Magui Gibsno V, RN) 650 mg, Oral, EVERY 4 HOURS PRN, Startin g Sat04/23/18 at 1604, Until Sat04/23/18 at 1912, Pain, Maximum dose of acetaminophen is 4000 mg from all sources in 24 hours., Routine BUpivacaine (PF) (MARCAINE) 0.25 % (2.5 mg/mL) injection (CANCEL ED) 1551 (Given - Provider: Lázaro Collazo MD)1558 (Given - Provider: Lázaro Collazo MD) ONCE PRN, Starting Sat04/23/18 at 1551, Until Sat04/23/18 at 1912, Intra- Operative (Intra-Procedure), Routine ibuprofen (ADVIL;MOTRIN) tablet 600 mg 600 mg, Oral, EVERY 6 HOURS PRN, Startin g Sat04/23/18 at 1604, Until Sat04/23/18 at 1912, Pain, Administer orally with milk or food to minimize GI irritation. Maximum dose of 3200 mg from all sources in 24 hours, Routine documented in this encounter Care Teams Telephone Recorder Relationship Specialty Start Date End Date Corrie Pacheco APRN PCP - General Family Medicine 04/04/18 [place] [address] documented as of this encounter
--- OUTSIDE RECORDS SUMMARY | 2022-02-23 01:45 | XMS_ITS | Encounter Summary ---
:1960 Author Organization [facility] [place] [address] Care Team Providers Name Role Phone Corrie [...] Expiration Date Visits Requ ested Visits Authorized [id number] 1 1 Encounter Details Date Type Department Care Team Description 05/05/2018 Surgery Main Operating Room Krishna Collazo MD PANCREATECTOMY,WHIPPLE, [facility] PARTIAL GASTRECTOMY W/ [facility] PANCREATOJEJUNOSTOMY [facility] GENERAL SURGERY [place], [place] [id number] [phone] Social History Tobacco Use Types Packs/Day Years [...] Sign Reading Time Taken Comments Blood Pressure 124/73 05/05/2018 6:15 PM EST Pulse 88 05/05/2018 6:15 PM EST Temperature 36.8 ??C (98.2 ??F) 05/05/2018 5:55 PM EST Respiratory Rate 20 05/05/2018 6:15 PM EST Oxygen Saturation 100% 05/05/2018 6:15 PM EST Inhaled Oxygen Concentration - - Weight 71.2 kg (157 lb) 05/05/2018 6:14 AM EST Height 172.7 cm (5' 8) 05/05/2018 6:14 AM EST Body Mass Index 23.87 05/05/2018 6:14 AM EST documented in this encounter Discharge Summaries Katharina Bailey, CLOTH FOLDER HAND - 05/12/2018 10:15 AM EST General Surgery [...] is a 57 year old man from [place], [place]. He presented[facility] with painless jaundice. His total bilirubin was 6. ?? 03/31/18 CT abdomen and pelvis with oral and IV contrast ([facility]) showed a subtle mass in the [...] ?? 04/04/18 EUS [facility] cytopathology per Acc# [id number] was interpreted as Positive for Malignancy. Carcinoma [...] take 2 months so he went to [facility] ED. See work up above. ?? He [...] the size of the specimen. A 19 Surinamese Nadeem drain was placed ?? Reconstruction was a retro-mesenteric and to side pancreaticojejunostomy (Blumgart type) with an indwelling 4 Surinamese pancreatic duct stent. The bile duct anastomosis [...] 05/09 POD 4: NGT discontinued. Tolerating clears, POTATO INSPECTOR weaned. ELPIDIO amylase 23 05/10 POD 5:1/2 regular diet, ELPIDIO DCd. POTATO INSPECTOR DCd, PO pain meds, Creon started 05/11 [...] serous output. Wound: Robotic abdominal port sites SENIOR GAMES TECHNICIAN with dermabond; incisions are well- approximated and are without erythema, swelling, or drainage. Ext: no edema, 2+ peripheral pulses Discharge Plans: Discharge to: Home VNA: Yes Name of facility: [facility] Contact information: PHONE: [phone] Discharge Conditions/Prognosis: Stable Discharge Medications: The following [...] Continued medications with new dosing Dose Details pgvlqe-viitbaya-vpvukhc 24,000-76,000 -120,000 unit Cpdr Commonly known as: [...] PM LAB, THREE L Lab 3L [facility] 06/03/2018 4:00 PM Krishna Collazo MD Leb Surg [facility] 06/03/2018 4:00 PM Kathleen Bangura LD Leb Hem Onc [facility] 06/06/2018 1:00 PM Gigi Sosa MD [facility] Outpatient Services/Studies: CBC (with Diff) Standing Status: Future Standing Exp. Date: 12/03/18 Comprehensive metabolic panel (non-fasting) Standing Status: Future Standing Exp. Date: 12/03/18 Prealbumin Standing Status: Future Standing Exp. Date: 12/03/18 Referral to Home Health - at DISCHARGE Order Comments: DOCUMENTATION FOR VNA SERVICES (INCLUDING THOSE PATIENTS WITH MEDICARE COVERAGE REQUIRING HOME VNA SERVICES AND/OR HOSPICE SERVICES) PATIENT'S LOCATION: Jaciel Bassam [place] [address] [facility] [phone] (home) [phone] (cell) Ceiling Insulation Blower's Name: lidia In discussion with the attending physician, it is certified that this patient is under their care and that they, or a Nurse Practitioner,Clinical Nurse specialist or Physician Surgical Training Specialist who is working directly with them, had [...] Reinforce Lovenox teaching. HOME HEALTH CARE AGENCY: [facility] PHONE: [phone] FAX: [phone] Start of care: 24-48hrs after discharge Please note that any additional orders needs or changes will need to be obtained from this patient'sPCP: DAMIEN Ramirez DR / [facility] [id number] All VNA agencies which cover the area of patient's residence have been reviewed, either verbally or in writing, and patient/family have chosen the home health care agency noted Question Response Notes Agency name and contact information [facility] Patient location post discharge Home What services are requested Registered Nurse Start date 05/13/2018 Responsible MD post discharge contact info PCP and Dr. Collazo Instructions Given to Patient at Discharge:. An After Visit Summary was printed and given to the patient. Patient Instructions [facility] Department of General Surgery Discharge Instructions [...] with the Surgery nurses. The number is [phone]. - During the night or weekends call the [facility] rope twisting machine operator at [phone] and ask to speak to the surgery resident occupational therapy professor for general surgery. Please note: Your surgeon may not be Pattern Repair Person, especially during the night or on weekends, so be ready to describe yourself and your surgery when you call. Follow up appointments: Future Appointments Date Time Provider Department Center 05/28/2018 1:00 PM Fariba Calvin Hem Onc [facility] 06/03/2018 3:00 PM LAB, THREE L Lab [address] [place] [address] [facility] 06/03/2018 4:00 PM Krishna Collazo MD Leb Surg [facility] 06/03/2018 4:00 PM Kathleen Bangura LD Leb Hem Onc [facility] 06/06/2018 1:00 PM Gigi Sosa MD [facility] [x] Follow-up appointment with General Surgery has already been scheduled [] A request for a follow-up appointment has been made and you should receive information via phone/mail in the next week. If you do not hear anything, please call the clinic at [phone] to confirmor reschedule. If you need a prior authorization, please call the General Surgery Clinic nurses [phone] for prior authorizations assistance General Instructions None [...] Corrie Pacheco APRN Signed: Katharina Bailey APRN [facility] Surgical Oncology Service Team Pager #[phone] 05/12/2018 12:26 PM documented in this encounter Discharge Instructions Patient InstructionsKatharina Bailey APRN - 05/12/2018 10:17 AM EST [facility] Department of General Surgery Discharge Instructions [...] with the Surgery nurses. The number is [phone]. - During the night or weekends call the [facility] rope twisting machine operator at [phone] and ask to speak to the surgery resident occupational therapy professor for general surgery. Please note: Your surgeon may not be Pattern Repair Person, especially during the night or on weekends, so be ready to describe yourself and your surgery when you call. Follow up appointments: Future Appointments Date Time Provider Department Center 05/28/2018 1:00 PM Fariba Calvin Hem Onc [facility] 06/03/2018 3:00 PM LAB, [facility] L [facility] 06/03/2018 4:00 PM Krishna Collazo MD Leb Surg [facility] 06/03/2018 4:00 PM Kathleen Bangura LD Leb Hem Onc [facility] 06/06/2018 1:00 PM Gigi Sosa MD [facility] [x] Follow-up appointment with General Surgery has already been scheduled [] A request for a follow-up appointment has been made and you should receive information via phone/mail in the next week. If you do not hear anything, please call the clinic at [phone] to confirmor reschedule. If you need a prior authorization, please call the General Surgery Clinic nurses [phone] for prior authorizations assistance AttachmentsThe following attachments cannot be sent through Care Everywhere. ENOXAPARIN (LOVENOX) (HUNGARIAN)documented in this encounter Medications at Time of [...] times daily Capsule as needed for Constipation. pwzjpu-tkcjrunk-otfivv Take 1-2 capsules by 270 capsule 3 [...] 1:44 PM EST Office of Care Management (OCM)-Automatic Folder Seamer discharge planning Automatic Folder Seamer: Jacque Piper RN Service: Reviewed medical record and in rounds with floor RN, CM, and medical team. Jaciel Blevins is ready for discharge to home . Met with the patient who is comfortable with the plan. Transportation provided by Automatic Folder Seamer Discharge Note: Patient will be discharged on 05/12 Discussed plan for discharge with primary team, patient and/or patient's family. Plan for discharge: Home care services for SN provided by [facility]. PHONE: [phone] FAX: [phone] Patient is medically ready for discharge to home with services outlined above. Automatic Folder Seamer to follow until discharge if any new [...] met w/ Stella Bangura RD LD at [facility]) Patient Active Problem List Diagnosis Code ??? [...] of this encounter: 71.2 kg (157 lb). Witt Body Weight (IBW): Witt body weight: 68.4 kg (150 lb 12.7 [...] contact. Pt aware of RD services at [facility] and will ask for follow up if he has difficulty w/ wt gain. Discharge planning underway JACQUELIN DUMAS Beeper #: [phone] Dorian Mtz - 05/11/2018 2:18 PM EST Narrative:Visited to introduce and assess acceptance of Frame And Scrap Crusher services. Pt was awake, alert, oriented and [...] provided emotional, spiritual support and encouraging presence. Frame And Scrap Crusher services accepted.Conversation to build trusting relationship.Provided prayer.Provided [...] 05/09 POD 4: NGT discontinued. Tolerating clears, POTATO INSPECTOR weaned. amylase 23 05/10 POD 5:1/2 regular diet, ELPIDIO DCd. POTATO INSPECTOR DCd, PO pain meds, Creon started 24 [...] today will remove the volume restriction. His POTATO INSPECTOR was also DCd and he is tolerating [...] 05/09 POD 4: NGT discontinued. Tolerating clears, POTATO INSPECTOR weaned. ELPIDIO amylase 23 24 Hour Events/S: [...] he is tolerating PO, will DC the POTATO INSPECTOR and start an oral pain regimen. ELPIDIO [...] in the HOP now 4Days Post-Op robotic [facility] Course: 05/05 POD 0: Robotic ipple 05/06 [...] well. Will start to wean off his POTATO INSPECTOR today and hopefully make the transition to [...] mass in the HOP now 3Days Post-Op [facility] Course: 05/05 [facility] 1: NGT, Rivers maintained 05/07 POD 2: Rivers discontinued, voiding spontaneously 24 Hour Events/S: Rivers taken out yesterday, voiding spontaneously He was out of bed walking around the unit on his own. Has abdominal pain with movement but otherwiseit is under control. He says that he is barely using his POTATO INSPECTOR. Using his IS regularly. Pulling around 1500 [...] mass in the HOP now 2Days Post-Op [facility] Course: 05/05 POD 0: Robotic [place] 05/06 POD 1: NGT, Dixon maintained 24 Hour Events/S: - Doing well. Has some abdominal pain, but overall it is very well controlled with his POTATO INSPECTOR - NGT is in place and he [...] Result Value Ref Range Surgical Pathology Report [id number] Location: OR; OR09; A The signing pathologist has (i) examined the relevant preparation(s) for the specimen(s) and (ii) rendered or confirmed the diagnosis(es). . Frozen Section FROZEN SECTION DIAGNOSIS FS-A (Pancreatic neck margin): Negative for carcinoma. 05/05/18 14:12 Electronically signed by: Nicholas JENKINS PhD, Stalin Amaya Verified: 05/05/2018 Pathologist Performed at: -[facility] Dept. of Pathology, [place], [place] This intraoperative consultation should be interpreted [...] to feel a lot better just before Simon- urine cleared up. I started to get [...] care. He reports minimal abdominal pain - POTATO INSPECTOR available but he has deniedthe need for [...] any pain throughout shift, did not use POTATO INSPECTOR. UOP adequate, dark roseanna, aware. BM& flatus [...] OUTCOME SUMMARY: Pt reported 4/10 abdominal pain, POTATO INSPECTOR utilized. Pt had good UO, retention at [...] active listening utilized;self-care encouraged;self- reflection promoted;self-responsibility promoted [facility] Plan of Care - Lexie-Desmond Rice RN [...] patient tolerating well. Clear liquids diet with ukrainian ice and popcycles tolerated well; no c/o nausea. Large output around ELPIDIO insertion site, nipple pouch applied. Patient reports no pain, controlled with dilaudid POTATO INSPECTOR. Patient up to walk in lock[place] with [...] Status 0 -- Score 60 -- OTHER [place] Fall Risk High -- [...] HOP now s/p robotic whipple Precautions Comments: POTATO INSPECTOR, IVs, lap incision, Assessment: Pt seen for evaluation today and presents with POTATO INSPECTOR, incision, decreased p.o intake, IVs,s/p robotic Whipple. Pt mobilizing well, agrees to have assist when getting up in order to manage lines/IV pole Please see associated flow sheet data below for objective information regarding today's se ssion Staff Mobility Recommendations Supervision with IV pole RENATO VAUGHAN, PT Pager: [phone] Inpatient Physical Therapy 2017 PT Evaluation Code [...] robotic whipple Hearing Precautions/Limitations WNL Precautions Comments POTATO INSPECTOR, IVs, lap incision, Treatment Number PT 1 Living Environment Lives With spouse Living Arrangements house Number of Stairs to Enter Home 4 Number of Stairs Within Home 12 Stair Railings at Home inside, present at both sides Living Environment Comment 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, 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, Functional Level Prior Prior Functional Level 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, 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, active Vital Signs Heart Rate 69 [...] able to tx with cues, Roll Left [place] (Bed Mobility) conditional independence Roll Right [place] (Bed Mobility) conditional independence Ozrhlx-fr-Egk [place] (Bed Mobility) conditional independence Nbs-cm-Sfxlvs [place] (Bed Mobility) conditional independence Safety Issues (Bed Mobility) (lines, tubing) Transfer Assessment/Treatment [place] (Sit-Stand Transfers) supervision required [place] (Stand-Sit Transfers) supervision required Comment (Transfers) moves well, good body mechanics Safety Issues (Transfers) (lines, tubing) Impairments (Transfers) (mild discomfort) Gait Assessment/Treatment Assistive Device (Gait) (IV pole) [place] (Gait) supervision required Distance in Feet (Gait) 450 ft Comment (Gait) Pt tolerating ambulation, motivated Gait Pattern Analysis swing-through gait Safety Issues (Gait) (IV lines/tubing) Motor Skills/Interventions Additional Documentation Balance Skills Training (Group) Balance Skills Training Sitting Balance: Static good balance Sitting Balance: Dynamic good balance Ldo-lw-Rztwx Balance good balance Standing Balance: Static good balance Standing Balance: Dynamic good balance Coping Verbalized Emotional State acceptance Observed Emotional State accepting Plan of Care Review Plan Of Care Reviewed With patient Progress progress toward functional goals as expected Clinical Impression Functional Level at Time of Evaluation supervision while ambulating due to IV pole, POTATO INSPECTOR, lines Patient/Family Goals Statement home when medically [...] 90 days) Any patient receiving care at [facility] must abide by [place] law. The hierarchy [...] (i) The agent with financial power of contract attorney or a conservator appointed in accordance with RSA 464-A. (j) The guardian of the patient???s estate. Current Coping/Education/Information Needs: Happy with hospital services Current Functional Ability: SBA Functional Status Prior to Admission: Independent Home Environment: Lives with , 2 dogs. Full flight to enter home and full flight to bedroom [address] [facility] [address] Social & Family Supports/Community Resources: Extended Emergency Contact Information Primary Emergency Contact: nikki blevins Mobile Relation: Spouse Behavioral Health History: denies Other Pertinent/Service Specific Information: No Health/Prescription Coverage: Primary Insurance: [employer] Payor: [employer] / Plan: [facility] PPO / Product Type: *No Product type* / Secondary Insurance: N/A Prescription Coverage: [facility] Preferred Pharmacy: [facility] - [place], [place] - [facility] [id number] Primary Care Provider: Corrie Pacheco APRN [phone] Patient/Caregiver Goals of Treatment: to go home toñ[place] Potential Needs for Transition of Care: Rehab/SNF: n/a Home Health: The patient/premium service representative has been provided a list of Home Health Agencies which serve their preferred geographic area. A letter describing our affiliations was reviewed with them and they were educated about their right to choose where referrals are placed. Patient requests referral to [facility]. PHONE: [phone] FAX: [phone]. Expected date of discharge: 05/12/18. Referral routed to the Hospital Product Specialist for matching with agency/vendor and to provide any required information. DME: n/a Community Resources: No Transportation: will drive patient home via private car Dialysis: n/a Anticipated Barriers to Discharge/Special Considerations: none Assessment: [facility] routed and orders pended. No other discharge needs identified on assessment, Plan: A member of the Care Management team will continue to monitor progress, follow for continuity of care and assist with transition of care planning. Jacque Piper RN stockroom coordinator Pager: [phone] Plan of Care - Antoinette Sheets OT - 05/07/2018 1:45 PM EST Occupational Therapy Evaluation Pertinent History of Current Problem: Jaciel Blevins is a 57 y.o. male who presented with painless jaundice and a mass in the HOP now s/p robotic whipple Precautions/Restrictions: fall(Drain, log roll, POTATO INSPECTOR) Assessment: Pt has been seen for occupational [...] Anticipated Discharge Disposition: home with assist Pager: [phone] Antoinette Sheets, OT 05/07/2018 Occupational Therapy Rehabilitation [...] Precautions/Limitations WFL Precautions/Restrictions fall (Drain, log roll, POTATO INSPECTOR) Living Environment Patient population Adult Living Environment Living Environment Comment Lives with his , she is available for a week upon discharge, multilevel home with shower stall. 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 Vision Assessment/Intervention Additional Documentation (WFL) Cognitive [...] bed w/cues for log roll Transfer Assessment/Treatment [place] (Sit-Stand Transfers) supervision required [place] (Stand-Sit Transfers) supervision required Pwz-Vavnj-Jaq Assistive Device (Transfers) rolling walker Comment (Transfers) limited by multiple lines and drains Gait Assessment/Treatment [place] (Gait) supervision required;verbal cues required Assistive Device [...] with movement and activity, managed well with POTATO INSPECTOR. Resting between care. Update 0430 ELPIDIO dressing saturated with serosanguineous drainage, dressing and gown changed. NGT flushed x2, air instilled into blue port, was clogged due to drainage thickness, 400mL of dark green drainage out after second flush, will continue to monitor. PLAN MOVING FORWARD: Promote OOB and ambulation, monitor and manage pain, monitor drain sites. INDIVIDUALIZED FALL PREVENTION INTERVENTIONS: [place] Risk ? Patient-specific fall risk factors per [...] not requiring any other pain medication besides POTATO INSPECTOR. Five laparoscopic sites, SENIOR GAMES TECHNICIAN w/dermabond, ELPIDIO on the right, leaking around incision site, dressingchanged X1. Rivers in place, (can air lock intermittently, adequate UPO, yellow in color, no bowel movement this shift, no flatus. On sips/chips diet, tolerating well, NGT in place with moderate out putthis shift. ?? PLAN MOVING FORWARD: -Continue w/NGT and flushing -Monitor ELPIDIO dressing site -Monitor Rivers and UOP -Continue w/POTATO INSPECTOR ?? INDIVIDUALIZED FALL PREVENTION INTERVENTIONS: High Fall Risk ?? Patient-specific fall risk factors per assessment: [current deficits]: Recent surgery, POTATO INSPECTOR, IV tubing and pole, Rivers, and generalized [...] PACU s/p whipple with ELPIDIO drain, VSS, POTATO INSPECTOR in place with good pain control. ELPIDIO [...] Collazo MD - 05/05/2018 5:53 PM EST [facility] Operative Note Patient Name: Jaciel Blevins : [id number] MR#: [id number] Case Date: 05/05/2018 Surgeon: Surgeon(s) and Role: * Krishna Collazo MD - Primary * Mary Ruiz MD - Resident-Surgeon Ranjan Registered Nurse Service Employee: Elaine Adkins RN Preoperative diagnosis: PANCREAS CANCER [...] diameter. The specimen was retrieved with an Creww specimen retrieval bag via the laparoscopic 15 mm port site which was extended 1 cm cranially and 1 cm caudally to accommodate the size of the specimen. A 19 Surinamese Nadeem drain was placed Reconstruction was a retro-mesenteric and to side pancreaticojejunostomy (Blumgart type) with an indwelling 4 Surinamese pancreatic duct stent. The bile duct anastomosis [...] neck margin (FROZEN) Blue - vascular groove [place] - [facility] OR 9 ext. [id number] PANCREAS CANCER Head of pancreas, antrum, duodenum resection YES, Please perform frozen section 05/05/2018 1:28 PM Number of tissue samples (in container) 1 Time specimen removed from patient: 1:24 PM SPECIMEN TO PATHOLOGY PANCREAS CANCER Gallbladder excision 05/05/2018 1:37 PM Number of tissue samples (in container) 1 Time specimen removed from patient: 1:37 PM Drains: 19 Surinamese Nadeem drain as above. Surgical Closure: Primary [...] Next, we placed the 15 mm laparoscopic timber management assistant port in the right mid rectus [...] The proximal jejunum was divided using the Experiment stapler (white load). The specimen side of [...] was divided using 2 firings of the Experiment stapler (green load and a blue load). [...] to microbiology. We then introduced a 4 Surinamese Elizabeth catheter via a 12-gauge angiocatheter through [...] lateral extent exposing both the vein of Salyer superiorly and the first jejunal branch inferiorly. [...] then ligated and divided the vein of Salyer across metal clips at its insertion with [...] trocars and extended the 15 mm lap timber management assistant port for approximately an additional 3 [...] and extracted through the 15 mm laparoscopic timber management assistant port via a Endo Catch specimen [...] complete we turned our attention to the ghle-qv-jssjmn stitches. An tiny enterotomy was created immediately [...] a 3-0V lock stitch as a running Christina stitch. A second layer of running Lembert type stitches was placed on the anterior with 2-0 Silk an outer layer to complete the anastomosis. The anastomosis was noted to sit nicely without torsion or outflow obstructionat the efferent jejunal limb. With the reconstruction complete we introduced a 19 Surinamese Nadeem drain via the most right lateral [...] new suction and cautery at closure: No Kqmsvynjm-gapkxobvt-hunsclxihv abdominal cavity wash: No Enagirlbp-vfzmbicqj-qbgpgwmjri wound wash: Yes Attestation: Case Date: 05/05/2018 I was present and I participated during the entire procedure (does not need to include opening and closing). KRISHNA COLLAZO MD 05/05/2018 Brief Op Note - Krishna Collazo MD - 05/05/2018 5:44 PM EST Brief Operative Note Patient Name: Jaciel Blevins : [id number] MR#: [id number] Case Date: 05/05/2018 Surgeon: Surgeon(s) and Role: [...] neck margin (FROZEN) Blue - vascular groove [place] - [facility] OR 9 ext. [id number] PANCREAS CANCER Head of pancreas, antrum, duodenum [...] Hematology and Oncology Gigi Sosa MD [facility] [place] [address] Ebonie Gordon, CLOTH FOLDER HAND [address] [place] [address] [place] [address] documented as of this encounter Procedures Procedure [...] SCREEN, SDP STAT 05/05/2018 6:07 (FUTURE SURGERY, [facility] SAME AM EST DAY PROGRAM ONLY) ABO/RH TYPING STAT 05/05/2018 6:07 Results for this AM EST procedure are i n the results section. ANTIBODY SCREEN STAT 05/05/2018 6:07 Results f or this AM EST procedure are i n the results section. documented in this encounter Results Prealbumin (06/03/2018 2:39 PM EST) athologist Signature Prealbumin 25 20 - 40 [facility] mg/dL [facility] Comment: Prealbumin levels are generally lower in the pediatric population; adult concentrations are usually attained near puberty. Specimen Anatomical Collection Method Collection Time Receive d Time (Source) Location / / Volume Laterality Blood specimen 06/03/2018 2:39 PM 019 2:45 (specimen) EST PM EST Resulting Agency Comment Spec In Lab Katharina Bailey APRN CHEMISTRY ORDERABLES Performing Organization Address City/State/[place] [address] (ABNORMAL) Comprehensive metabolic panel (non-fasting) (06/03/2018 2:39 PM EST) athologist Signature Glucose Lvl 99 65 - 199 [facility] mg/dL [facility] Comment: Diabetes: >=200 mg/dL plus symp toms BUN 22 (H) 10 - 20 mg/dL [facility] Creatinine 0.82 0.80 - 1.50 mg/dL [facility] Sodium 140 135 - 145 mmol/L [facility] Potassium 4.5 3.5 - 5.0 mmol/L [facility] Comment: Please note: ??Patients with WBC >100,00 0 may have falsely elevated Potassium levels. ??For accurate Potassium quantif ication in these patients send serum separator tube (gold top) for subsequent determinations. ??Contact the Clinical Chemistry Laboratory if there are any qu estions. Chloride 102 98 - 107 mmol/L [facility] CO2 28 22 - 31 mmol/L [facility] Anion Gap 10 5 - 15 mmol/L [facility] Calcium 9.2 8.5 - 10.5 mg/dL [facility] Total Protein 7.3 6.1 - 8.0 gm/dL [facility] Albumin 3.8 3.2 - 5.2 gm/dL [facility] AST 25 0 - 39 unit/L [facility] ALT 37 0 - 55 unit/L [facility] Alk Phos 75 40 - 120 unit/L [facility] Total Bilirubin 1.1 0.2 - 1.3 mg/dL [facility] Estimated GFR 97 >=60 mL/min/1.73 m?? [facility] Comment: The eGFR was calculated using the CKD-EP I equation. As with all creatinine based estimates of kidney function, eGFR values calculated with the CKD-EPI equation are not accurate in patients wi th acute kidney failure, extremes of body mass or the acutely ill. [email or web address] [email or web address] eGFR 113 >=60 mL/min/1.73 m?? [facility] Comment: The eGFR was calculated using the CKD-EP I equation. As with all creatinine based estimates of kidney function, eGFR values calculated with the CKD-EPI equation are not accurate in patients wi th acute kidney failure, extremes of body mass or the acutely ill. [email or web address] [email or web address] Specimen Anatomical Collection Method Collection Time Receive d Time (Source) Location / / Volume Laterality Blood specimen 06/03/2018 2:39 PM 019 2:45 (specimen) EST PM EST Resulting Agency Comment Spec In Lab Katharina Bailey APRN CHEMISTRY ORDERABLES Performing Organization Address City/State/ZIP Code Phon e Number [place] [id number] (ABNORMAL) Differential, Automated (05/12/2018 12:55 AM EST) [facility] gist Method Time Signature Neutrophils % 70.0 % [facility] Neutr Abs (ANC) 9.02 (H) 1.70 - [facility] 6.10 [facility] x10(3)/[facility] LABORATORY Lymphocytes % 14.8 % [facility] Lymphocytes Abs 1.9 0.9 - 3.2 [facility] x10(3)/[facility] LABORATORY Monocytes % 9.5 % [facility] Monocyte Abs 1.2 (H) 0.3 - 0.9 [facility] x10(3)/[facility] LABORATORY Eosinophils % 2.3 % [facility] Eosinophils Abs 0.3 0.0 - 0.4 [facility] x10(3)/[facility] LABORATORY Basophils % 0.7 % [facility] Basophils Abs 0.1 0.0 - 0.1 [facility] x10(3)/[facility] LABORATORY Immature Gran % 2.70 % [facility] Comment: Immature granulocytes(IG's)percentage an d absolute count will include metamyelocytes, myelocytes, and promyelo cytes. Blood smears from CBCs yielding IG's will be scanned manually for concor dance. If this scan disagrees with the automated IG or if promyelocytes are not ed, a manual differential will be performed. [place] Gran Abs 0.35 (H) 0.00 - 0.04 x10(3)/[facility] LABORATORY Specimen Anatomical Collection Method Collection Time Receive d Time (Source) Location / / Volume Laterality Blood specimen 05/12/2018 12:55 9 1:05 (specimen) AM EST AM EST Resulting Agency Comment Spec In Lab Mary Ruiz MD HEMATOLOGY ORDERABLES Performing Organization Address City/State/[place] [address] (ABNORMAL) Hemogram (05/12/2018 12:55 AM EST) Analysis Performed At Patho logist Time Signature WBC 12.9 (H) 4.0 - 9.5 [facility] x10(3)/[facility] LABORATORY RBC 3.13 (L) 4.58 - [facility] [place] 5.54 [facility] x10(6)/[facility] LABORATORY Hemoglobin 10.3 (L) 13.7 - [facility] 16.5 gm/dL [facility] Hematocrit 29.7 (L) 40.5 - [facility] [place] 48.5 % [facility] MCV 94.9 (H) 82.9 - [facility] 93.1 [facility] LABORATORY MCH 32.9 (H) 27.5 - [facility] [place] 32.1 pg [facility] MCHC 34.7 32.0 - [facility] [place] 35.7 gm/dL [facility] Platelets 382 (H) 145 - 357 [facility] LABORATORY RDWSD 61.4 (H) 36.0 - [facility] [place] 45.0 [facility] LABORATORY RDWCV 18.0 (H) 11.4 - [facility] [place] 13.8 % [facility] MPV 9.2 7.6 - 12.9 [facility] nRBC % Auto 0.0 % [facility] nRBC Abs Auto 0.000 0.000 - [facility] [place] 0.000 [facility] x10(3)/[facility] LABORATORY Specimen Anatomical Collection Method Collection Time Receive d Time (Source) Location / / Volume Laterality Blood specimen 05/12/2018 12:55 9 1:05 (specimen) AM EST AM EST Resulting Agency Comment Spec In Lab Mary Ruiz MD HEMATOLOGY ORDERABLES Performing Organization Address City/[facility]/ZIP Code Phon e Number [address] Magnesium (05/12/2018 12:55 AM EST) P athologist Signature Magnesium 0.83 0.69 - 1.07 [facility] mmol/L [facility] Specimen Anatomical Collection Method Collection Time Receive d Time (Source) Location / / Volume Laterality Blood specimen 05/12/2018 12:55 9 1:05 (specimen) AM EST AM EST Resulting Agency Comment Spec In Lab Krishna Collazo MD CHEMISTRY ORDERABLES Performing Organization Address City/[facility]/ZIP Code Phon e Number [address] Phosphorus (05/12/2018 12:55 AM EST) P athologist Signature Phosphorus 2.6 2.5 - 4.[address] [address] [facility]/dL [facility] Specimen Anatomical Collection Method Collection Time Receive d Time (Source) Location / / Volume Laterality Blood specimen 05/12/2018 12:55 9 1:05 (specimen) AM EST AM EST Resulting Agency Comment Spec In Lab Krishna Collazo MD CHEMISTRY ORDERABLES Performing Organization Address City/[facility]/ZIP [facility] Phon e Number [address] (ABNORMAL) Comprehensive metabolic panel (non-fasting) (05/12/2018 12:55 AM EST) P athologist Signature Glucose Lvl 109 65 - 199 [facility] mg/dL [facility] Comment: Diabetes: >=200 mg/dL plus symp toms BUN 16 10 - 20 mg/dL [facility] Creatinine 0.78 (L) 0.80 - 1.50 mg/dL [facility] Sodium 137 135 - 145 mmol/L [facility] Potassium 3.9 3.5 - 5.0 mmol/L [facility] Comment: Please note: ??Patients with WBC >100,00 0 may have falsely elevated Potassium levels. ??For accurate Potassium quantif ication in these patients send serum separator tube (gold top) for subsequent determinations. ??Contact the Clinical Chemistry Laboratory if there are any qu estions. Chloride 104 98 - 107 mmol/L [facility] CO2 22 22 - 31 mmol/L [facility] Anion Gap 11 5 - 15 mmol/L [facility] Calcium 8.2 (L) 8.5 - 10.5 mg/dL [facility] Total Protein 5.8 (L) 6.1 - 8.0 gm/dL [facility] Albumin 2.5 (L) 3.2 - 5.2 gm/dL [facility] AST 41 (H) 0 - 39 unit/L [facility] ALT 71 (H) 0 - 55 unit/L [facility] Alk Phos 112 40 - 120 unit/L [facility] Total Bilirubin 3.8 (H) 0.2 - 1.3 mg/dL [facility] Estimated GFR 100 >=60 mL/min/1.73 m?? [facility] Comment: The eGFR was calculated using the CKD-EP I equation. As with all creatinine based estimates of kidney function, eGFR values calculated with the CKD-EPI equation are not accurate in patients wi th acute kidney failure, extremes of body mass or the acutely ill. [email or web address] UPMCk eGFR 115 >=60 mL/min/1.73 m?? [facility] Comment: The eGFR was calculated using the CKD-EP I equation. As with all creatinine based estimates of kidney function, eGFR values calculated with the CKD-EPI equation are not accurate in patients wi th acute kidney failure, extremes of body mass or the acutely ill. [email or web address] [email or web address] Specimen Anatomical Collection Method Collection Time Receive d Time (Source) Location / / Volume Laterality Blood specimen 05/12/2018 12:55 9 1:05 (specimen) AM EST AM EST Resulting Agency Comment Spec In Lab Krishna Collazo MD CHEMISTRY ORDERABLES Performing Organization Address City/State/[place] [address] (ABNORMAL) Differential, Automated (05/11/2018 2:03 AM EST) [facility] gist Method Time Signature Neutrophils % 75.9 % [facility] Neutr Abs (ANC) 10.60 (H) 1.70 - [facility] 6.10 [facility] x10(3)/[facility] LABORATORY Lymphocytes % 11.5 % [facility] Lymphocytes Abs 1.6 0.9 - 3.2 [facility] x10(3)/[facility] LABORATORY Monocytes % 8.6 % [facility] Monocyte Abs 1.2 (H) 0.3 - 0.9 [facility] x10(3)/[facility] LABORATORY Eosinophils % 1.3 % [facility] Eosinophils Abs 0.2 0.0 - 0.4 [facility] x10(3)/[facility] LABORATORY Basophils % 0.6 % [facility] Basophils Abs 0.1 0.0 - 0.1 [facility] x10(3)/[facility] LABORATORY Immature Gran % 2.10 % [facility] Comment: Immature granulocytes(IG's)percentage an d absolute count will include metamyelocytes, myelocytes, and promyelo cytes. Blood smears from CBCs yielding IG's will be scanned manually for concor dance. If this scan disagrees with the automated IG or if promyelocytes are not ed, a manual differential will be performed. [place] Gran Abs 0.29 (H) 0.00 - 0.04 x10(3)/[facility] LABORATORY Specimen Anatomical Collection Method Collection Time Receive d Time (Source) Location / / Volume Laterality Blood specimen 05/11/2018 2:03 AM 019 2:14 (specimen) EST AM EST Resulting Agency Comment Spec In Lab Mary Ruiz MD HEMATOLOGY ORDERABLES Performing Organization Address City/State/ZIP Code Phon e Number [address] (ABNORMAL) Hemogram (05/11/2018 2:03 AM EST) Analysis Performed At Patho logist Time Signature WBC 14.0 (H) 4.0 - 9.[address] [address] [facility] x10(3[facility] LABORATORY RBC 3.19 (L) 4.58 - [place] 5.54 [facility] x10(6)/[facility] LABORATORY Hemoglobin 10.2 (L) 13.7 - [facility] 16.5 gm/dL [facility] Hematocrit 29.3 (L) 40.5 - [facility] 48.5 % [facility] MCV 91.8 82.9 - [facility] 93.1 [facility] LABORATORY MCH 32.0 27.5 - [place] 32.1 pg [facility] MCHC 34.8 32.0 - [facility] [place] 35.7 gm/dL [facility] Platelets 342 145 - 357 [facility] x10(3)/[facility] LABORATORY RDWSD 58.4 (H) 36.0 - [facility] [place] 45.0 [facility] LABORATORY RDWCV 17.6 (H) 11.4 - [facility] JO[place] 13.8 % [facility] MPV 9.3 7.6 - 12.9 [facility] JO[place] LABORATORY nRBC % Auto 0.0 % [facility] nRBC Abs Auto 0.000 0.000 - [place] 0.000 [facility] x10(3)/[facility] LABORATORY Specimen Anatomical Collection Method Collection Time Receive d Time (Source) Location / / Volume Laterality Blood specimen 05/11/2018 2:03 AM 019 2:14 (specimen) EST AM EST Resulting Agency Comment Spec In Lab Mary Ruiz MD HEMATOLOGY ORDERABLES Performing Organization Address City/State/Z[place] [address] Magnesium (05/11/2018 2:03 AM EST) athologist Signature Magnesium 0.80 0.69 - 1.07 [facility] mmol/L [facility] Specimen Anatomical Collection Method Collection Time Receive d Time (Source) Location / / Volume Laterality Blood specimen 05/11/2018 2:03 AM 019 2:14 (specimen) EST AM EST Resulting Agency Comment Spec In Lab Krishna Collazo MD CHEMISTRY ORDERABLES Performing Organization Address City/[facility]/ZIP Code Phon e Number [address] Phosphorus (05/11/2018 2:03 AM EST) athologist [facility] Phosphorus 3.9 2.5 - 4.5 [facility] mg/dL [facility] Specimen Anatomical Collection Method Collection Time Receive d Time (Source) Location / / Volume Laterality Blood specimen 05/11/2018 2:03 AM 019 2:14 (specimen) EST AM EST Resulting Agency Comment Spec In Lab Krishna Collazo MD CHEMISTRY ORDERABLES Performing Organization Address City/[facility] [place] [address] (ABNORMAL) Comprehensive metabolic panel (non-fasting) (05/11/2018 2:03 AM EST) athologist [facility] Glucose Lvl 106 65 - 199 [facility] mg/dL [facility] Comment: Diabetes: >=200 mg/dL plus symp toms BUN 14 10 - 20 mg/dL [facility] Creatinine 0.75 (L) 0.80 - 1.50 mg/dL [facility] LABORATORY Sodium 136 135 - 145 mmol/L [facility] Potassium 4.0 3.5 - 5.0 mmol/L [facility] Comment: Please note: ??Patients with WBC >100,00 0 may have falsely elevated Potassium levels. ??For accurate Potassium quantif ication in these patients send serum separator tube (gold top) for subsequent determinations. ??Contact the Clinical Chemistry Laboratory if there are any qu estions. Chloride 104 98 - 107 mmol/L [facility] CO2 21 (L) 22 - 31 mmol/L [facility] Anion Gap 11 5 - 15 mmol/L [facility] Calcium 8.2 (L) 8.5 - 10.5 mg/dL [facility] Total Protein 5.6 (L) 6.1 - 8.0 gm/dL [facility] Albumin 2.2 (L) 3.2 - 5.2 gm/dL [facility] AST 47 (H) 0 - 39 unit/L [facility] ALT 78 (H) 0 - 55 unit/L [facility] Alk Phos 104 40 - 120 unit/L [facility] Total Bilirubin 4.1 (H) 0.2 - 1.3 mg/dL [facility] Estimated GFR 101 >=60 mL/min/1.73 m?? [facility] Comment: The eGFR was calculated using the CKD-EP I equation. As with all creatinine based estimates of kidney function, eGFR values calculated with the CKD-EPI equation are not accurate in patients wi th acute kidney failure, extremes of body mass or the acutely ill. [email or web address] [email or web address] eGFR 117 >=60 mL/min/1.73 m?? [facility] Comment: The eGFR was calculated using the CKD-EP I equation. As with all creatinine based estimates of kidney function, eGFR values calculated with the CKD-EPI equation are not accurate in patients wi th acute kidney failure, extremes of body mass or the acutely ill. [email or web address] [email or web address] Specimen Anatomical Collection Method Collection Time Receive d Time (Source) Location / / Volume Laterality Blood specimen 05/11/2018 2:03 AM 019 2:14 (specimen) EST AM EST Resulting Agency Comment Spec In Lab Krishna Collazo MD CHEMISTRY ORDERABLES Performing Organization Address City/State/[place] [address] POCT Glucose (05/10/2018 11:32 AM EST) athologist Signature POC Glucose 107 65 - 199 [place] mg/dL [facility] Comment: Supplemental ranges: <140 mg/dL before meals <180 mg/dL all other times of the day Specimen Anatomical Collection Method Collection Time Receive d Time (Source) Location / / Volume Laterality Blood specimen 05/10/2018 11:32 9 (specimen) AM EST 11:32 AM EST Krishna Collazo MD POINT OF CARE TEST ORDERABLE S Performing Organization Address City/State/ZIP Code Phon e Number [address] POCT Glucose (05/10/2018 7:08 AM EST) athologist Signature POC Glucose 118 65 - 199 [facility] mg/dL [facility] Comment: Supplemental ranges: <140 mg/dL before meals <180 mg/dL all other times of the day Specimen Anatomical Collection Method Collection Time Receive d Time (Source) Location / / Volume Laterality Blood specimen 05/10/2018 7:08 AM 019 7:08 (specimen) EST AM EST Krishna Collazo MD POINT OF CARE TEST ORDERABLE S Performing Organization Address City/State/ZIP Code Phon e Number [address] POCT Glucose (05/10/2018 3:21 AM EST) athologist Signature POC Glucose 103 65 - 199 [facility] mg/dL [facility] Comment: Supplemental ranges: <140 mg/dL before meals <180 mg/dL all other times of the day Specimen Anatomical Collection Method Collection Time Receive d Time (Source) Location / / Volume Laterality Blood specimen 05/10/2018 3:21 AM 019 3:21 (specimen) EST AM EST Krishna Collazo MD POINT OF CARE TEST ORDERABLE S Performing Organization Address City/State/ZIP [place] [address] Amylase Level Body Fluid ELPIDIO Drain (05/10/2018 2:23 AM EST) P athologist Signature Amylase, BF 13 unit/L [facility] Comment: No reference range is available for the specimen type submitted. ??The performance of this assay for the submit ana type has not been validated and results should be interpreted accordingl y and with regard to the patient's clinical status. Amylase BF Type ELPIDIO Drain [facility] Specimen Anatomical Collection Method Collection Time Receive d Time (Source) Location / / Volume Laterality ELPIDIO Drain 05/10/2018 2:23 AM 9 3:50 EST AM EST Resulting Agency Comment Spec In Lab Krishna Collazo MD BODY FLUIDS AND STOOLS ORDER GEE Performing Organization Address City/State/[place] [address] (ABNORMAL) Differential, Automated (05/10/2018 1:43 AM EST) Patholo gist Method Time Signature Neutrophils % 70.9 % [facility] Neutr Abs (ANC) 7.03 (H) 1.70 - [facility] 6.10 [facility] x10(3)/[facility] LABORATORY Lymphocytes % 13.7 % [facility] Lymphocytes Abs 1.4 0.9 - 3.2 [facility] x10(3)/[facility] LABORATORY Monocytes % 9.8 % [facility] Monocyte Abs 1.0 (H) 0.3 - 0.9 [facility] x10(3)/[facility] LABORATORY Eosinophils % 3.1 % [facility] Eosinophils Abs 0.3 0.0 - 0.4 [facility] x10(3)/[facility] LABORATORY Basophils % 0.9 % [facility] Basophils Abs 0.1 0.0 - 0.1 [facility] x10(3)/[facility] LABORATORY Immature Gran % 1.60 % [facility] Comment: Immature granulocytes(IG's)percentage an d absolute count will include metamyelocytes, myelocytes, and promyelo cytes. Blood smears from CBCs yielding IG's will be scanned manually for concor dance. If this scan disagrees with the automated IG or if promyelocytes are not ed, a manual differential will be performed. [place] Gran Abs 0.16 (H) 0.00 - 0.04 x10(3)/[facility] LABORATORY Specimen Anatomical Collection Method Collection Time Receive d Time (Source) Location / / Volume Laterality Blood specimen 05/10/2018 1:43 AM 019 1:59 (specimen) EST AM EST Resulting Agency Comment Spec In Lab Mary Ruiz MD HEMATOLOGY ORDERABLES Performing Organization Address City/State/[place] [address] (ABNORMAL) Hemogram (05/10/2018 1:43 AM EST) Analysis Performed At Patho logist Time Signature WBC 9.9 (H) 4.0 - 9.5 [facility] x10(3)/[facility] LABORATORY RBC 3.11 (L) 4.58 - [facility] 5.54 [facility] x10(6)/[facility] LABORATORY Hemoglobin 9.9 (L) 13.7 - [facility] 16.5 gm/dL [facility] Hematocrit 28.5 (L) 40.5 - [facility] 48.5 % [facility] MCV 91.6 82.9 - [facility] 93.1 [facility] LABORATORY MCH 31.8 27.5 - [facility] 32.1 pg [facility] MCHC 34.7 32.0 - [facility] 35.7 gm/dL [facility] Platelets 325 145 - 357 [facility] x10(3)/[facility] LABORATORY RDWSD 57.1 (H) 36.0 - [facility] 45.0 [facility] LABORATORY RDWCV 17.2 (H) 11.4 - [facility] [place] 13.8 % [facility] MPV 9.5 7.6 - 12.9 [facility] LABORATORY nRBC % Auto 0.0 % [facility] nRBC Abs Auto 0.000 0.000 - [facility] [place] 0.000 [facility] x10(3)/[facility] LABORATORY Specimen Anatomical Collection Method Collection Time Receive d Time (Source) Location / / Volume Laterality Blood specimen 05/10/2018 1:43 AM 019 1:59 (specimen) EST AM EST Resulting Agency Comment Spec In Lab Mary Ruiz MD HEMATOLOGY ORDERABLES Performing Organization Address City/[facility]/ZIP Code Phon e Number [address] Magnesium (05/10/2018 1:43 AM EST) P athologist Signature Magnesium 0.79 0.69 - 1.07 [facility] mmol/L [facility] Specimen Anatomical Collection Method Collection Time Receive d Time (Source) Location / / Volume Laterality Blood specimen 05/10/2018 1:43 AM 019 1:59 (specimen) EST AM EST Resulting Agency Comment Spec In Lab Krishna Collazo MD CHEMISTRY ORDERABLES Performing Organization Address City/[facility] [place]/ZIP Code Phon e Number [address] Phosphorus (05/10/2018 1:43 AM EST) P athologist Signature Phosphorus 3.6 2.5 - 4.[address] [facility]/dL [facility] Specimen Anatomical Collection Method Collection Time Receive d Time (Source) Location / / Volume Laterality Blood specimen 05/10/2018 1:43 AM 019 1:59 (specimen) EST AM EST Resulting Agency Comment Spec In Lab Krishna Collazo MD CHEMISTRY ORDERABLES Performing Organization Address City/[facility] [place]/ZIP [facility] [place] [address] (ABNORMAL) Comprehensive metabolic panel (non-fasting) (05/10/2018 1:43 AM EST) P athologist Signature Glucose Lvl 112 65 - 199 [facility] mg/dL [facility] Comment: Diabetes: >=200 mg/dL plus symp toms BUN 11 10 - 20 mg/dL [facility] LABORATORY Creatinine 0.65 (L) 0.80 - 1.50 mg/dL [facility] LABORATORY Sodium 135 135 - 145 mmol/L [facility] LABORATORY Potassium 3.6 3.5 - 5.0 mmol/L [facility] LABOR[facility] Comment: Please note: ??Patients with WBC >100,00 0 may have falsely elevated Potassium levels. ??For accurate Potassium quantif ication in these patients send serum separator tube (gold top) for subsequent determinations. ??Contact the Clinical Chemistry Laboratory if there are any qu estions. Chloride 103 98 - 107 mmol/L [facility]OR[facility] CO2 21 (L) 22 - 31 mmol/L [facility] Anion Gap 11 5 - 15 mmol/L [facility]OR[facility] Calcium 8.2 (L) 8.5 - 10.5 mg/dL [facility] LABORAT[facility] Total Protein 5.4 (L) 6.1 - 8.0 gm/dL [facility] LABORATORY Albumin 2.2 (L) 3.2 - 5.2 gm/dL [facility] LABOR[facility] AST 51 (H) 0 - 39 unit/L [facility] ALT 88 (H) 0 - 55 unit/L [facility] Alk Phos 90 40 - 120 unit/L [facility] Total Bilirubin 4.3 (H) 0.2 - 1.3 mg/dL [facility] LABORATORY Estimated GFR 107 >=60 mL/min/1.73 m?? [facility] Comment: The eGFR was calculated using the CKD-EP I equation. As with all creatinine based estimates of kidney function, eGFR values calculated with the CKD-EPI equation are not accurate in patients wi th acute kidney failure, extremes of body mass or the acutely ill. [email or web address] eGFR 124 >=60 mL/min/1.73 m?? [facility] Comment: The eGFR was calculated using the CKD-EP I equation. As with all creatinine based estimates of kidney function, eGFR values calculated with the CKD-EPI equation are not accurate in patients wi th acute kidney failure, extremes of body mass or the acutely ill. [email or web address] Specimen Anatomical Collection Method Collection Time Receive d Time (Source) Location / / Volume Laterality Blood specimen 05/10/2018 1:43 AM 019 1:59 (specimen) EST AM EST Resulting Agency Comment Spec In Lab Krishna Collazo MD CHEMISTRY ORDERABLES Performing Organization Address City/[facility] [place]/ZIP [facility] Phon e Number [address] Amylase (05/10/2018 1:43 AM EST) athologist Signature Amylase 37 28 - 100 [facility] unit/L [facility] Specimen Anatomical Collection Method Collection Time Receive d Time (Source) Location / / Volume Laterality Blood specimen 05/10/2018 1:43 AM 019 1:59 (specimen) EST AM EST Resulting Agency Comment Spec In Lab Krishna Collazo MD CHEMISTRY ORDERABLES Performing Organization Address [facility] [place]/[facility] Phon e Number [address] POCT Glucose (05/09/2018 11:31 PM EST) athologist Signature POC Glucose 112 65 - [address] [facility] mg/dL [facility] Comment: Supplemental ranges: <140 mg/dL before meals <180 mg/dL all other times of the day Specimen Anatomical Collection Method Collection Time Receive d Time (Source) Location / / Volume Laterality Blood specimen 05/09/2018 11:31 9 (specimen) PM EST 11:31 PM EST Krishna Collazo MD POINT OF CARE TEST ORDERABLE S Performing Organization Address City/[facility] [place]/[facility] [place] [address] POCT Glucose (05/09/2018 7:48 PM EST) athologist Signature POC Glucose 105 65 - 199 [facility] mg/dL [facility] Comment: Supplemental ranges: <140 mg/dL before meals <180 mg/dL all other times of the day Specimen Anatomical Collection Method Collection Time Receive d Time (Source) Location / / Volume Laterality Blood specimen 05/09/2018 7:48 PM 019 7:48 (specimen) EST PM EST Krishna Collazo MD POINT OF CARE TEST ORDERABLE S Performing Organization Address City/State/ZIP Code Phon e Number [address] POCT Glucose (05/09/2018 4:21 PM EST) athologist Signature POC Glucose 106 65 - 199 [place] mg/dL [facility] Comment: Supplemental ranges: <140 mg/dL before meals <180 mg/dL all other times of the day Specimen Anatomical Collection Method Collection Time Receive d Time (Source) Location / / Volume Laterality Blood specimen 05/09/2018 4:21 PM 019 4:21 (specimen) EST PM EST Krishna Collazo MD POINT OF CARE TEST ORDERABLE S Performing Organization Address City/[facility] [place]/ZIP Code Phon e Number [place] [address] POCT Glucose (05/09/2018 11:55 AM EST) athologist Signature POC Glucose 97 65 - 199 [facility] [place] mg/dL [facility] Comment: Supplemental ranges: <140 mg/dL before meals <180 mg/dL all other times of the day Specimen Anatomical Collection Method Collection Time Receive d Time (Source) Location / / Volume Laterality Blood specimen 05/09/2018 11:55 9 (specimen) AM EST 11:55 AM EST Krishna Collazo MD POINT OF CARE TEST ORDERABLE S Performing Organization Address City/[facility] [place]/ZIP Code Phon e Number [place] TREVIZO [address] POCT Glucose (05/09/2018 7:33 AM EST) athologist Signature POC Glucose 100 65 - 199 [place] mg/dL [facility] Comment: Supplemental ranges: <140 mg/dL before meals <180 mg/dL all other times of the day Specimen Anatomical Collection Method Collection Time Receive d Time (Source) Location / / Volume Laterality Blood specimen 05/09/2018 7:33 AM 019 7:33 (specimen) EST AM EST Krishna Collazo MD POINT OF CARE TEST ORDERABLE S Performing Organization Address City/State/ZIP Code Phon e Number [address] Amylase Level Body Fluid ELPIDIO Drain (05/09/2018 6:13 AM EST) P athologist Signature Amylase, BF 23 unit/L [facility] Comment: No reference range is available for the specimen type submitted. ??The performance of this assay for the submit ana type has not been validated and results should be interpreted accordingl y and with regard to the patient's clinical status. Amylase BF Type ELPIDIO Drain [facility] Specimen Anatomical Collection Method Collection Time Receive d Time (Source) Location / / Volume Laterality ELPIDIO Drain 05/09/2018 6:13 AM 9 6:33 EST AM EST Resulting Agency Comment Spec In Lab Krishna Collazo MD BODY FLUIDS AND STOOLS ORDER GEE Performing Organization Address [facility] [place]/ZIP [facility] Phon e Number [address] POCT Glucose (05/09/2018 4:14 AM EST) athologist [facility] POC Glucose 105 65 - 199 [facility] mg/dL [facility] Comment: Supplemental ranges: <140 mg/dL before meals <180 mg/dL all other times of the day Specimen Anatomical Collection Method Collection Time Receive d Time (Source) Location / / Volume Laterality Blood specimen 05/09/2018 4:14 AM 019 4:14 (specimen) EST AM EST Krishna Collazo MD POINT OF CARE TEST ORDERABLE S Performing Organization Address City/[facility] [place]/ZIP Code Phon e Number [address] (ABNORMAL) Differential, Automated (05/09/2018 1:43 AM EST) Patholo gist Method Time Signature Neutrophils % 78.4 % [facility] LABORATORY Neutr Abs (ANC) 9.20 (H) 1.70 - [facility] 6.10 [facility] x10(3)/[facility] L LABORATORY Lymphocytes % 9.7 % [facility] LABORATORY Lymphocytes Abs 1.1 0.9 - 3.2 [facility] x10(3)/[facility] LABORATORY Monocytes % 8.4 % [facility] LABORATORY Monocyte Abs 1.0 (H) 0.3 - 0.9 [facility] x10(3)/[facility] LABORATORY Eosinophils % 1.9 % [facility] LABORATORY Eosinophils Abs 0.2 0.0 - 0.4 [facility] x10(3)/[facility] LABORATORY Basophils % 0.4 % [facility] LABORATORY Basophils Abs 0.0 0.0 - 0.1 [facility] x10(3)/[facility] LABORATORY Immature Gran % 1.20 % [facility] Comment: Immature granulocytes(IG's)percentage an d absolute count will include metamyelocytes, myelocytes, and promyelo cytes. Blood smears from CBCs yielding IG's will be scanned manually for concor dance. If this scan disagrees with the automated IG or if promyelocytes are not ed, a manual differential will be performed. [place] Gran Abs 0.14 (H) 0.00 - 0.04 x10(3)/[facility] LABORATORY Specimen Anatomical Collection Method Collection Time Receive d Time (Source) Location / / Volume Laterality Blood specimen 05/09/2018 1:43 AM 019 1:54 (specimen) EST AM EST Resulting Agency Comment Spec In Lab Mary Ruiz MD HEMATOLOGY ORDERABLES Performing Organization Address City/State/[place] [address] (ABNORMAL) Hemogram (05/09/2018 1:43 AM EST) Analysis Performed At Patho logist Time Signature WBC 11.7 (H) 4.0 - 9.5 [facility] x10(3)/[facility] LABORATORY RBC 2.93 (L) 4.58 - [facility] 5.54 [facility] x10(6)/[facility] LABORATORY Hemoglobin 9.4 (L) 13.7 - [facility] 16.5 gm/dL [facility] Hematocrit 27.1 (L) 40.5 - [facility] 48.5 % [facility] MCV 92.5 82.9 - [facility] 93.1 [facility] LABORATORY MCH 32.1 27.5 - [place] 32.1 pg [facility] MCHC 34.7 32.0 - [facility] TREVIZO 35.7 gm/dL [facility] Platelets 259 145 - 357 [place] x10(3)/[facility] LABORATORY RDWSD 58.0 (H) 36.0 - [place] TREVIZO 45.0 [facility] LABORATORY RDWCV 17.2 (H) 11.4 - [facility] TREVIZO 13.8 % [facility] MPV 9.6 7.6 - 12.9 [facility] TREVIZO [facility] LABORATORY nRBC % Auto 0.0 % [facility] LABORATORY nRBC Abs Auto 0.000 0.000 - [facility] TREVIZO 0.000 [facility] x10(3)/[facility] LABORATORY Specimen Anatomical Collection Method Collection Time Receive d Time (Source) Location / / Volume Laterality Blood specimen 05/09/2018 1:43 AM 019 1:54 (specimen) EST AM EST Resulting Agency Comment Spec In Lab Mary Ruiz MD HEMATOLOGY ORDERABLES Performing Organization Address City/State/ZIP Code Phon e Number [address] Magnesium (05/09/2018 1:43 AM EST) P athologist Signature Magnesium 0.79 0.69 - 1.07 [place] mmol/L [facility] Specimen Anatomical Collection Method Collection Time Receive d Time (Source) Location / / Volume Laterality Blood specimen 05/09/2018 1:43 AM 019 1:54 (specimen) EST AM EST Resulting Agency Comment Spec In Lab Krishna Collazo MD CHEMISTRY ORDERABLES Performing Organization Address City/State/ZIP Code Phon e Number [address] Phosphorus (05/09/2018 1:43 AM EST) P athologist Signature Phosphorus 2.6 2.5 - 4.5 [place] [place] mg/dL [facility] Specimen Anatomical Collection Method Collection Time Receive d Time (Source) Location / / Volume Laterality Blood specimen 05/09/2018 1:43 AM 019 1:54 (specimen) EST AM EST Resulting Agency Comment Spec In Lab Krishna Collazo MD CHEMISTRY ORDERABLES Performing Organization Address City/State/[place] [address] (ABNORMAL) Comprehensive metabolic panel (non-fasting) (05/09/2018 1:43 AM EST) P athologist Signature Glucose Lvl 107 65 - 199 [facility] mg/dL [facility] Comment: Diabetes: >=200 mg/dL plus symp toms BUN 10 10 - 20 mg/dL [facility] LABORATORY Creatinine 0.63 (L) 0.80 - 1.50 mg/dL [facility] LABORATORY Sodium 138 135 - 145 mmol/L [facility] LABORATORY Potassium 3.6 3.5 - 5.0 mmol/L [facility] LABORATORY Comment: Please note: ??Patients with WBC >100,00 0 may have falsely elevated Potassium levels. ??For accurate Potassium quantif ication in these patients send serum separator tube (gold top) for subsequent determinations. ??Contact the Clinical Chemistry Laboratory if there are any qu estions. Chloride 105 98 - 107 mmol/L [facility] CO2 24 22 - 31 mmol/L [facility] Anion Gap 9 5 - 15 mmol/L [facility] LABORATORY Calcium 8.2 (L) 8.5 - 10.5 mg/dL [facility] LABORATORY Total Protein 5.4 (L) 6.1 - 8.0 gm/dL [facility] LABORATORY Albumin 2.2 (L) 3.2 - 5.2 gm/dL [facility]OR[facility] AST 47 (H) 0 - 39 unit/L [facility] LABOR[facility]ORY ALT 107 (H) 0 - 55 unit/L [facility] LABORATORY Alk Phos 94 40 - 120 unit/L [facility] Total Bilirubin 5.2 (H) 0.2 - 1.3 mg/dL [facility] LABORATORY Estimated GFR 109 >=60 mL/min/1.73 m?? [facility] Comment: The eGFR was calculated using the CKD-EP I equation. As with all creatinine based estimates of kidney function, eGFR values calculated with the CKD-EPI equation are not accurate in patients wi th acute kidney failure, extremes of body mass or the acutely ill. [email or web address] eGFR 126 >=60 mL/min/1.73 m?? [facility] Comment: The eGFR was calculated using the CKD-EP I equation. As with all creatinine based estimates of kidney function, eGFR values calculated with the CKD-EPI equation are not accurate in patients wi th acute kidney failure, extremes of body mass or the acutely ill. [email or web address] Specimen Anatomical Collection Method Collection Time Receive d Time (Source) Location / / Volume Laterality Blood specimen 05/09/2018 1:43 AM 019 1:54 (specimen) EST AM EST Resulting Agency Comment Spec In Lab Krishna Collazo MD CHEMISTRY ORDERABLES Performing Organization Address City/[facility] [place]/ZIP [place] [address] Amylase (05/09/2018 1:43 AM EST) P athologist Signature Amylase 44 28 - 100 [facility] unit/L [facility] Comment: result rechecked- ank Specimen Anatomical Collection Method Collection Time Receive d Time (Source) Location / / Volume Laterality Blood specimen 05/09/2018 1:43 AM 019 1:54 (specimen) EST AM EST Resulting Agency Comment Spec In Lab Krishna Collazo MD CHEMISTRY ORDERABLES Performing Organization Address City/[facility] [place]/ZIP [place] [address] POCT Glucose (05/09/2018 12:12 AM EST) P athologist Signature POC Glucose 109 65 - 199 [facility] mg/dL [facility] Comment: Supplemental ranges: <140 mg/dL before meals <180 mg/dL all other times of the day Specimen Anatomical Collection Method Collection Time Receive d Time (Source) Location / / Volume Laterality Blood specimen 05/09/2018 12:12 9 (specimen) AM EST 12:12 AM EST Krishna Collazo MD POINT OF CARE TEST ORDERABLE S Performing Organization Address City/[facility] [place]/ZIP Code Phon e Number [address] POCT Glucose (05/08/2018 7:56 PM EST) athologist Signature POC Glucose 109 65 - 199 [place] mg/dL [facility] Comment: Supplemental ranges: <140 mg/dL before meals <180 mg/dL all other times of the day Specimen Anatomical Collection Method Collection Time Receive d Time (Source) Location / / Volume Laterality Blood specimen 05/08/2018 7:56 PM 019 7:56 (specimen) EST PM EST Krishna Collazo MD POINT OF CARE TEST ORDERABLE S Performing Organization Address City/[facility] [place]/ZIP Code Phon e Number [address] POCT Glucose (05/08/2018 4:29 PM EST) athologist Signature POC Glucose 121 65 - 199 [place] mg/dL [facility] Comment: Supplemental ranges: <140 mg/dL before meals <180 mg/dL all other times of the day Specimen Anatomical Collection Method Collection Time Receive d Time (Source) Location / / Volume Laterality Blood specimen 05/08/2018 4:29 PM 019 4:29 (specimen) EST PM EST Krishna Collazo MD POINT OF CARE TEST ORDERABLE S Performing Organization Address City/State/ZIP Code Phon e Number [address] POCT Glucose (05/08/2018 11:40 AM EST) athologist Signature POC Glucose 104 65 - 199 [place] mg/dL [facility] Comment: Supplemental ranges: <140 mg/dL before meals <180 mg/dL all other times of the day Specimen Anatomical Collection Method Collection Time Receive d Time (Source) Location / / Volume Laterality Blood specimen 05/08/2018 11:40 9 (specimen) AM EST 11:40 AM EST Krishna Collazo MD POINT OF CARE TEST ORDERABLE S Performing Organization Address City/[facility] [place]/ZIP Code Phon e Number [address] POCT Glucose (05/08/2018 7:53 AM EST) athologist Signature POC Glucose 102 65 - [address] [facility] mg/dL [facility] Comment: Supplemental ranges: <140 mg/dL before meals <180 mg/dL all other times of the day Specimen Anatomical Collection Method Collection Time Receive d Time (Source) Location / / Volume Laterality Blood specimen 05/08/2018 7:53 AM 019 7:53 (specimen) EST AM EST Krishna Collazo MD POINT OF CARE TEST ORDERABLE S Performing Organization Address [facility] [place]/[facility] [place] [address] Amylase Level Body Fluid ELPIDIO Drain (05/08/2018 5:19 AM EST) athologist Signature Amylase, BF 23 unit/L [facility] Comment: No reference range is available for the specimen type submitted. ??The performance of this assay for the submit ana type has not been validated and results should be interpreted accordingl y and with regard to the patient's clinical status. Amylase BF Type ELPIDIO Drain [facility] Specimen Anatomical Collection Method Collection Time Receive d Time (Source) Location / / Volume Laterality ELPIDIO Drain 05/08/2018 5:19 AM 9 5:58 EST AM EST Resulting Agency Comment Spec In Lab Krishna Collazo MD BODY FLUIDS AND STOOLS ORDER GEE Performing Organization Address City/[facility] [place]/ZIP Code Phon e Number [address] POCT Glucose (05/08/2018 3:35 AM EST) athologist Signature POC Glucose 104 65 - [address] [facility] mg/dL [facility] Comment: Supplemental ranges: <140 mg/dL before meals <180 mg/dL all other times of the day Specimen Anatomical Collection Method Collection Time Receive d Time (Source) Location / / Volume Laterality Blood specimen 05/08/2018 3:35 AM 019 3:35 (specimen) EST AM EST Krishna Collazo MD POINT OF CARE TEST ORDERABLE S Performing Organization Address City/State/ZIP [place] [address] (ABNORMAL) Differential, Automated (05/08/2018 1:14 AM EST) [facility] gist Method Time Signature Neutrophils % 83.4 % [facility] Neutr Abs (ANC) 12.36 (H) 1.70 - [facility] 6.10 [facility] x10(3)/[facility] LABORATORY Lymphocytes % 8.2 % [facility] Lymphocytes Abs 1.2 0.9 - 3.2 [facility] x10(3)/[facility] LABORATORY Monocytes % 6.6 % [facility] Monocyte Abs 1.0 (H) 0.3 - 0.9 [facility] x10(3)/[facility] LABORATORY Eosinophils % 0.9 % [facility] Eosinophils Abs 0.1 0.0 - 0.4 [facility] x10(3)/[facility] LABORATORY Basophils % 0.2 % [facility] Basophils Abs 0.0 0.0 - 0.1 [facility] x10(3)/[facility] LABORATORY Immature Gran % 0.70 % [facility] Comment: Immature granulocytes(IG's)percentage an d absolute count will include metamyelocytes, myelocytes, and promyelo cytes. Blood smears from CBCs yielding IG's will be scanned manually for concor dance. If this scan disagrees with the automated IG or if promyelocytes are not ed, a manual differential will be performed. [place] Gran Abs 0.10 (H) 0.00 - 0.04 x10(3)/[facility] LABORATORY Specimen Anatomical Collection Method Collection Time Receive d Time (Source) Location / / Volume Laterality Blood specimen 05/08/2018 1:14 AM 019 1:24 (specimen) EST AM EST Resulting Agency Comment Spec In Lab Mary Ruiz MD HEMATOLOGY ORDERABLES Performing Organization Address City/State/ZIP Code Phon e Number [address] (ABNORMAL) Hemogram (05/08/2018 1:14 AM EST) Analysis Performed At Patho logist Time Signature WBC 14.8 (H) 4.0 - 9.[address] [facility] x[facility](3[facility] LABORATORY RBC 2.85 (L) 4.58 - [place] 5.54 [facility] x10(6)/[facility] LABORATORY Hemoglobin 9.1 (L) 13.7 [facility] 16.5 gm/dL [facility] Hematocrit 27.3 (L) 40.5 [facility] 48.5 % [facility] MCV 95.8 (H) 82.9 - [facility] 93.1 [facility] LABORATORY MCH 31.9 27.5 - [place] 32.1 pg [facility] MCHC 33.3 32.0 - [place] 35.7 gm/dL [facility] Platelets 244 145 - 357 [facility] x10(3)/[facility] LABORATORY RDWSD 61.6 (H) 36.0 - [place] 45.0 [facility] LABORATORY RDWCV 17.7 (H) 11.4 - [facility] JO[place]LINE 13.8 % [facility] MPV 10.0 7.6 - 12.9 [facility] LABORATORY nRBC % Auto 0.0 % [facility] nRBC Abs Auto 0.000 0.000 - [place] 0.000 [facility] x10(3)/[facility] LABORATORY Specimen Anatomical Collection Method Collection Time Receive d Time (Source) Location / / Volume Laterality Blood specimen 05/08/2018 1:14 AM 019 1:24 (specimen) EST AM EST Resulting Agency Comment Spec In Lab Mary Ruiz MD HEMATOLOGY ORDERABLES Performing Organization Address City/State/ZIP Code Phon e Number [address] Magnesium (05/08/2018 1:14 AM EST) athologist Signature Magnesium 0.79 0.69 - 1.07 [facility] mmol/L [facility] Specimen Anatomical Collection Method Collection Time Receive d Time (Source) Location / / Volume Laterality Blood specimen 05/08/2018 1:14 AM 019 1:24 (specimen) EST AM EST Resulting Agency Comment Spec In Lab Krishna Collazo MD CHEMISTRY ORDERABLES Performing Organization Address City/[facility] [place] [facility] Phon e Number [address] (ABNORMAL) Phosphorus (05/08/2018 1:14 AM EST) athologist Signature Phosphorus 2.0 (L) 2.5 - 4.5 [facility] mg/dL [facility] LABORATORY Specimen Anatomical Collection Method Collection Time Receive d Time (Source) Location / / Volume Laterality Blood specimen 05/08/2018 1:14 AM 1:24 (specimen) EST AM EST Resulting Agency Comment Spec In Lab Krishna Collazo MD CHEMISTRY ORDERABLES Performing Organization Address City/[facility] Phon e Number [address] (ABNORMAL) Comprehensive metabolic panel (non-fasting) (05/08/2018 1:14 AM EST) athologist Signature Glucose Lvl 106 65 - 199 [facility] mg/dL [facility] Comment: Diabetes: >=200 mg/dL plus symp toms BUN 9 (L) 10 - 20 mg/dL [facility] LABORATORY Creatinine 0.63 (L) 0.80 - 1.50 mg/dL [facility] LABORATORY Sodium 138 135 - 145 mmol/L [facility] LABORATORY Potassium 3.7 3.5 - 5.0 mmol/L [facility] LABORATORY Comment: Please note: ??Patients with WBC >100,00 0 may have falsely elevated Potassium levels. ??For accurate Potassium quantif ication in these patients send serum separator tube (gold top) for subsequent determinations. ??Contact the Clinical Chemistry Laboratory if there are any qu estions. Chloride 103 98 - 107 mmol/L [facility] LABORATORY CO2 26 22 - 31 mmol/L [facility] Anion Gap 9 5 - 15 mmol/L [facility] LABOR[facility]ORY Calcium 8.1 (L) 8.5 - 10.5 mg/dL [facility] LABORATORY Total Protein 5.2 (L) 6.1 - 8.0 gm/dL [facility] LABORATORY Albumin 2.3 (L) 3.2 - 5.2 gm/dL [facility] LABOR[facility] AST 79 (H) 0 - 39 unit/L [facility] LABOR[facility] ALT 153 (H) 0 - 55 unit/L [facility] Alk Phos 103 40 - 120 unit/L [facility] Total Bilirubin 6.4 (H) 0.2 - 1.3 mg/dL [facility] LABORATORY Estimated GFR 109 >=60 mL/min/1.73 m?? [facility] Comment: The eGFR was calculated using the CKD-EP I equation. As with all creatinine based estimates of kidney function, eGFR values calculated with the CKD-EPI equation are not accurate in patients wi th acute kidney failure, extremes of body mass or the acutely ill. [email or web address] eGFR 126 >=60 mL/min/1.73 m?? [facility] Comment: The eGFR was calculated using the CKD-EP I equation. As with all creatinine based estimates of kidney function, eGFR values calculated with the CKD-EPI equation are not accurate in patients wi th acute kidney failure, extremes of body mass or the acutely ill. [email or web address] Specimen Anatomical Collection Method Collection Time Receive d Time (Source) Location / / Volume Laterality Blood specimen 05/08/2018 1:14 AM 019 1:24 (specimen) EST AM EST Resulting Agency Comment Spec In Lab Krishna Collazo MD CHEMISTRY ORDERABLES Performing Organization Address City/State/[place] [address] (ABNORMAL) Amylase (05/08/2018 1:14 AM EST) athologist Signature Amylase 19 (L) 28 - 100 [facility] unit/L [facility] Specimen Anatomical Collection Method Collection Time Receive d Time (Source) Location / / Volume Laterality Blood specimen 05/08/2018 1:14 AM 019 1:24 (specimen) EST AM EST Resulting Agency Comment Spec In Lab Krishna Collazo MD CHEMISTRY ORDERABLES Performing Organization Address City/State/ZIP Code Phon e Number [address] POCT Glucose (05/07/2018 11:46 PM EST) athologist Signature POC Glucose 102 65 - 199 [facility] mg/dL [facility] Comment: Supplemental ranges: <140 mg/dL before meals <180 mg/dL all other times of the day Specimen Anatomical Collection Method Collection Time Receive d Time (Source) Location / / Volume Laterality Blood specimen 05/07/2018 11:46 9 (specimen) PM EST 11:46 PM EST Krishna Collazo MD POINT OF CARE TEST ORDERABLE S Performing Organization Address City/[facility]/ZIP Code Phon e Number [address] POCT Glucose (05/07/2018 8:02 PM EST) athologist Signature POC Glucose 111 65 - 199 [facility] mg/dL [facility] Comment: Supplemental ranges: <140 mg/dL before meals <180 mg/dL all other times of the day Specimen Anatomical Collection Method Collection Time Receive d Time (Source) Location / / Volume Laterality Blood specimen 05/07/2018 8:02 PM 019 8:02 (specimen) EST PM EST Krishna Collazo MD POINT OF CARE TEST ORDERABLE S Performing Organization Address City/[facility]/ZIP Code Phon e Number [address] POCT Glucose (05/07/2018 3:55 PM EST) athologist Signature POC Glucose 191 65 - 199 [facility] mg/dL [facility] Comment: Supplemental ranges: <140 mg/dL before meals <180 mg/dL all other times of the day Specimen Anatomical Collection Method Collection Time Receive d Time (Source) Location / / Volume Laterality Blood specimen 05/07/2018 3:55 PM 019 3:55 (specimen) EST PM EST Krishna Collazo MD POINT OF CARE TEST ORDERABLE S Performing Organization Address City/[facility]/ZIP [place] [address] POCT Glucose (05/07/2018 11:27 AM EST) P athologist Signature POC Glucose 118 65 - 199 [facility] mg/dL [facility] Comment: Supplemental ranges: <140 mg/dL before meals <180 mg/dL all other times of the day Specimen Anatomical Collection Method Collection Time Receive d Time (Source) Location / / Volume Laterality Blood specimen 05/07/2018 11:27 9 (specimen) AM EST 11:27 AM EST Krishna Collazo MD POINT OF CARE TEST ORDERABLE S Performing Organization Address City/[facility] Phon e Number [address] Amylase Level Body Fluid ELPIDIO Drain (05/07/2018 6:41 AM EST) P athologist Signature Amylase, BF 83 unit/L [facility]OR[facility] Comment: No reference range is available for the specimen type submitted. ??The performance of this assay for the submit ana type has not been validated and results should be interpreted accordingl y and with regard to the patient's clinical status. Amylase BF Type ELPIDIO Drain [facility] LABORATORY Specimen Anatomical Collection Method Collection Time Receive d Time (Source) Location / / Volume Laterality ELPIDIO Drain 05/07/2018 6:41 AM 9 6:54 EST AM EST Resulting Agency Comment Spec In Lab Krishna Collazo MD BODY FLUIDS AND STOOLS ORDER GEE Performing Organization Address City/[facility]/ZIP Code Phon e Number [address] (ABNORMAL) Differential, Automated (05/07/2018 1:36 AM EST) Patholo gist Method Time Signature Neutrophils % 86.8 % [facility] LABORATORY Neutr Abs (ANC) 16.28 (H) 1.70 - [facility] 6.10 [facility] x10(3)/[facility] LABORATORY Lymphocytes % 5.6 % [facility] LABORATORY Lymphocytes Abs 1.0 0.9 - 3.2 [facility] x10(3)/[facility] LABORATORY Monocytes % 6.6 % [facility] LABORATORY Monocyte Abs 1.2 (H) 0.3 - 0.9 [facility] x10(3)/[facility] LABORATORY Eosinophils % 0.1 % [facility] LABORATORY Eosinophils Abs 0.0 0.0 - 0.4 [facility] x10(3)/[facility] LABORATORY Basophils % 0.3 % [facility] LABORATORY Basophils Abs 0.1 0.0 - 0.1 [facility] x10(3)/[facility] LABORATORY Immature Gran % 0.60 % [facility] LABORATORY Comment: Immature granulocytes(IG's)percentage an d absolute count will include metamyelocytes, myelocytes, and promyelo cytes. Blood smears from CBCs yielding IG's will be scanned manually for concor dance. If this scan disagrees with the automated IG or if promyelocytes are not ed, a manual differential will be performed. [place] Gran Abs 0.12 (H) 0.00 - 0.04 x10(3)/[facility] LABORATORY Specimen Anatomical Collection Method Collection Time Receive d Time (Source) Location / / Volume Laterality Blood specimen 05/07/2018 1:36 AM 019 1:55 (specimen) EST AM EST Resulting Agency Comment Spec In Lab Mary Ruiz MD HEMATOLOGY ORDERABLES Performing Organization Address City/State/[place] [address] (ABNORMAL) Hemogram (05/07/2018 1:36 AM EST) Analysis Performed At Patho logist Time Signature WBC 18.8 (H) 4.0 - 9.5 [facility] x10(3)/[facility] LABORATORY RBC 3.10 (L) 4.58 - [facility] 5.54 [facility] x10(6)/[facility] LABORATORY Hemoglobin 9.8 (L) 13.7 - [facility] 16.5 gm/dL [facility] Hematocrit 29.5 (L) 40.5 - [facility] 48.5 % [facility] MCV 95.2 (H) 82.9 - [facility] 93.1 [facility] LABORATORY MCH 31.6 27.5 - [facility] 32.1 pg [facility] MCHC 33.2 32.0 - [facility] gm/dL [facility] Platelets 242 145 - 357 [facility] x10(3)/[facility] LABORATORY RDWSD 63.6 (H) 36.0 - [facility] 45.0 [facility] LABORATORY RDWCV 18.5 (H) 11.4 - [facility] 13.8 % [facility] LABORATORY MPV 10.3 7.6 - 12.9 [facility] LABORATORY nRBC % Auto 0.0 % [facility] LABORATORY nRBC Abs Auto 0.000 0.000 - [facility] 0.000 [facility] x10(3)/[facility] LABORATORY Specimen Anatomical Collection Method Collection Time Receive d Time (Source) Location / / Volume Laterality Blood specimen 05/07/2018 1:36 AM 019 1:55 (specimen) EST AM EST Resulting Agency Comment Spec In Lab Mary Ruiz MD HEMATOLOGY ORDERABLES Performing Organization Address City/State/[place] [address] Magnesium (05/07/2018 1:36 AM EST) P athologist Signature Magnesium 0.84 0.69 - 1.07 [facility] mmol/L [facility] Specimen Anatomical Collection Method Collection Time Receive d Time (Source) Location / / Volume Laterality Blood specimen 05/07/2018 1:36 AM 019 1:55 (specimen) EST AM EST Resulting Agency Comment Spec In Lab Krishna Collazo MD CHEMISTRY ORDERABLES Performing Organization Address City/State/ZIP Code Phon e Number [address] (ABNORMAL) Phosphorus (05/07/2018 1:36 AM EST) P athologist Signature Phosphorus 1.5 (L) 2.5 - 4.5 [facility] mg/dL [facility]OR[facility] Specimen Anatomical Collection Method Collection Time Receive d Time (Source) Location / / Volume Laterality Blood specimen 05/07/2018 1:36 AM 019 1:55 (specimen) EST AM EST Resulting Agency Comment Spec In Lab Krishna Collazo MD CHEMISTRY ORDERABLES Performing Organization Address City/[facility]/ZIP Code Phon e Number [address] (ABNORMAL) Comprehensive metabolic panel (non-fasting) (05/07/2018 1:36 AM EST) athologist Signature Glucose Lvl 135 65 - 199 [facility] mg/dL [facility] Comment: Diabetes: >=200 mg/dL plus symp toms BUN 12 10 - 20 mg/dL [facility] LABORATORY Creatinine 0.79 (L) 0.80 - 1.50 mg/dL [facility] LABORATORY Sodium 135 135 - 145 mmol/L [facility] LABORATORY Potassium 4.4 3.5 - 5.0 mmol/L [facility] LABORATORY Comment: Please note: ??Patients with WBC >100,00 0 may have falsely elevated Potassium levels. ??For accurate Potassium quantif ication in these patients send serum separator tube (gold top) for subsequent determinations. ??Contact the Clinical Chemistry Laboratory if there are any qu estions. Chloride 101 98 - 107 mmol/L [facility] LABORATORY CO2 25 22 - 31 mmol/L [facility]OR[facility] Anion Gap 9 5 - 15 mmol/L [facility] LABORATORY Calcium 7.8 (L) 8.5 - 10.5 mg/dL [facility] LABORATORY Total Protein 5.1 (L) 6.1 - 8.0 gm/dL [facility] LABORATORY Albumin 2.1 (L) 3.2 - 5.2 gm/dL [facility] LABORATORY AST 171 (H) 0 - 39 unit/L [facility] LABORATORY ALT 236 (H) 0 - 55 unit/L [facility] LABORATORY Alk Phos 113 40 - 120 unit/L [facility]AT[facility] Total Bilirubin 6.7 (H) 0.2 - 1.3 mg/dL [facility] LABORATORY Estimated GFR 99 >=60 mL/min/1.73 m?? [facility] Comment: The eGFR was calculated using the CKD-EP I equation. As with all creatinine based estimates of kidney function, eGFR values calculated with the CKD-EPI equation are not accurate in patients wi th acute kidney failure, extremes of body mass or the acutely ill. [email or web address] [email or web address] eGFR 115 >=60 mL/min/1.73 m?? [facility] Comment: The eGFR was calculated using the CKD-EP I equation. As with all creatinine based estimates of kidney function, eGFR values calculated with the CKD-EPI equation are not accurate in patients wi th acute kidney failure, extremes of body mass or the acutely ill. [email or web address] Specimen Anatomical Collection Method Collection Time Receive d Time (Source) Location / / Volume Laterality Blood specimen 05/07/2018 1:36 AM 019 1:55 (specimen) EST AM EST Resulting Agency Comment Spec In Lab Krishna Collazo MD CHEMISTRY ORDERABLES Performing Organization Address City/State/[place] [address] (ABNORMAL) Amylase (05/07/2018 1:36 AM EST) P athologist Signature Amylase 21 (L) 28 - 100 [facility] unit/L [facility] Specimen Anatomical Collection Method Collection Time Receive d Time (Source) Location / / Volume Laterality Blood specimen 05/07/2018 1:36 AM 019 1:55 (specimen) EST AM EST Resulting Agency Comment Spec In Lab Krishna Collazo MD CHEMISTRY ORDERABLES Performing Organization Address City/[facility]/ZIP Code Phon e Number [address] Amylase Level Body Fluid ELPIDIO Drain (05/06/2018 4:59 AM EST) P athologist Signature Amylase, BF 670 unit/L [facility] Comment: No reference range is available for the specimen type submitted. ??The performance of this assay for the submit ana type has not been validated and results should be interpreted accordingl y and with regard to the patient's clinical status. Amylase BF Type ELPIDIO Drain [facility] LABORATORY Specimen Anatomical Collection Method Collection Time Receive d Time (Source) Location / / Volume Laterality ELPIDIO Drain 05/06/2018 4:59 AM 9 5:10 EST AM EST Resulting Agency Comment Spec In Lab Krishna Collazo MD BODY FLUIDS AND STOOLS ORDER GEE Performing Organization Address City/[facility]/ZIP [place] [address] (ABNORMAL) Differential, Automated (05/06/2018 1:24 AM EST) Patholo gist Method Time Signature Neutrophils % 92.0 % [facility] LABORATORY Neutr Abs (ANC) 19.74 (H) 1.70 - [facility] 6.10 [facility] x10(3)/[facility] L LABORATORY Lymphocytes % 3.0 % [facility] LABORATORY Lymphocytes Abs 0.6 (L) 0.9 - 3.2 [facility] x10(3)/[facility] LABORATORY Monocytes % 4.3 % [facility] LABORATORY Monocyte Abs 0.9 0.3 - 0.9 [facility] x10(3)/[facility] LABORATORY Eosinophils % 0.0 % [facility] LABORATORY Eosinophils Abs 0.0 0.0 - 0.4 [facility] x10(3)/[facility] LABORATORY Basophils % 0.2 % [facility] LABORATORY Basophils Abs 0.0 0.0 - 0.1 [facility] x10(3)/[facility] LABORATORY Immature Gran % 0.50 % [facility] Comment: Immature granulocytes(IG's)percentage an d absolute count will include metamyelocytes, myelocytes, and promyelo cytes. Blood smears from CBCs yielding IG's will be scanned manually for concor dance. If this scan disagrees with the automated IG or if promyelocytes are not ed, a manual differential will be performed. [place] Gran Abs 0.11 (H) 0.00 - 0.04 x10(3)/[facility] LABORATORY Specimen Anatomical Collection Method Collection Time Receive d Time (Source) Location / / Volume Laterality Blood specimen 05/06/2018 1:24 AM 019 1:44 (specimen) EST AM EST Resulting Agency Comment Spec In Lab Mary Ruiz MD HEMATOLOGY ORDERABLES Performing Organization Address City/State/ZIP Code Phon e Number [place] [id number] (ABNORMAL) Hemogram (05/06/2018 1:24 AM EST) Analysis Performed At Patho logist Time Signature WBC 21.5 (H) 4.0 - 9.5 [facility] x10(3)/[facility] LABORATORY RBC 3.45 (L) 4.58 - [facility] 5.54 [facility] x10(6)/[facility] LABORATORY Hemoglobin 11.0 (L) 13.7 [facility] 16.5 gm/dL [facility] Hematocrit 33.3 (L) 40.5 - [facility] 48.5 % [facility] LAB[facility] MCV 96.5 (H) 82.9 - [facility] 93.1 [facility] LABORATORY MCH 31.9 27.5 - [facility] 32.1 pg [facility] MCHC 33.0 32.0 - [facility] 35.7 gm/dL [facility] Platelets 292 145 - 357 [facility] x10(3)/[facility] LABORATORY RDWSD 65.9 (H) 36.0 - [facility] 45.0 [facility] LABORATORY RDWCV 18.8 (H) 11.4 - [facility] 13.8 % [facility] MPV 10.5 7.6 - 12.9 [facility] LABORATORY nRBC % Auto 0.0 % [facility] LABORATORY nRBC Abs Auto 0.000 0.000 - [facility] 0.000 [facility] x10(3)/[facility] LABORATORY Specimen Anatomical Collection Method Collection Time Receive d Time (Source) Location / / Volume Laterality Blood specimen 05/06/2018 1:24 AM 019 1:44 (specimen) EST AM EST Resulting Agency Comment Spec In Lab Mary Ruiz MD HEMATOLOGY ORDERABLES Performing Organization Address City/[facility]/ZIP Code Phon e Number [address] (ABNORMAL) Magnesium (05/06/2018 1:24 AM EST) P athologist Signature Magnesium 0.68 (L) 0.69 - 1.[address] [facility]/L [facility] Specimen Anatomical Collection Method Collection Time Receive d Time (Source) Location / / Volume Laterality Blood specimen 05/06/2018 1:24 AM 019 1:44 (specimen) EST AM EST Resulting Agency Comment Spec In Lab Krishna Collazo MD CHEMISTRY ORDERABLES Performing Organization Address City/[facility]/ZIP Code Phon e Number [address] (ABNORMAL) Phosphorus (05/06/2018 1:24 AM EST) P athologist Signature Phosphorus 5.2 (H) 2.5 - 4.5 [facility] mg/dL [facility] Specimen Anatomical Collection Method Collection Time Receive d Time (Source) Location / / Volume Laterality Blood specimen 05/06/2018 1:24 AM 019 1:44 (specimen) EST AM EST Resulting Agency Comment Spec In Lab Krishna Collazo MD CHEMISTRY ORDERABLES Performing Organization Address City/[facility]/ZIP Code Phon e Number [address] (ABNORMAL) Comprehensive metabolic panel (non-fasting) (05/06/2018 1:24 AM EST) P athologist Signature Glucose Lvl 125 65 - [address] [facility] mg/dL [facility] Comment: Diabetes: >=200 mg/dL plus symp toms BUN 15 10 - 20 mg/dL [facility] LABORATORY Creatinine 0.91 0.80 - 1.50 mg/dL [facility] LABORATORY Sodium 139 135 - 145 mmol/L [facility] LABORATORY Potassium 4.5 3.5 - 5.0 mmol/L [facility] Comment: Please note: ??Patients with WBC >100,00 0 may have falsely elevated Potassium levels. ??For accurate Potassium quantif ication in these patients send serum separator tube (gold top) for subsequent determinations. ??Contact the Clinical Chemistry Laboratory if there are any qu estions. Chloride 104 98 - 107 mmol/L [facility] CO2 25 22 - 31 mmol/L [facility] Anion Gap 10 5 - 15 mmol/L [facility] Calcium 8.2 (L) 8.5 - 10.5 mg/dL [facility] LABORATORY Total Protein 5.3 (L) 6.1 - 8.0 gm/dL [facility] LABORATORY Albumin 2.4 (L) 3.2 - 5.2 gm/dL [facility] AST 325 (H) 0 - 39 unit/L [facility] ALT 342 (H) 0 - 55 unit/L [facility] Alk Phos 124 (H) 40 - 120 unit/L [facility] Total Bilirubin 7.7 (H) 0.2 - 1.3 mg/dL [facility] LABOR[facility] Estimated GFR 93 >=60 mL/min/1.73 m?? [facility] Comment: The eGFR was calculated using the CKD-EP I equation. As with all creatinine based estimates of kidney function, eGFR values calculated with the CKD-EPI equation are not accurate in patients wi th acute kidney failure, extremes of body mass or the acutely ill. [email or web address] eGFR 107 >=60 mL/min/1.73 m?? [facility] Comment: The eGFR was calculated using the CKD-EP I equation. As with all creatinine based estimates of kidney function, eGFR values calculated with the CKD-EPI equation are not accurate in patients wi th acute kidney failure, extremes of body mass or the acutely ill. [email or web address] Specimen Anatomical Collection Method Collection Time Receive d Time (Source) Location / / Volume Laterality Blood specimen 05/06/2018 1:24 AM 019 1:44 (specimen) EST AM EST Resulting Agency Comment Spec In Lab Krishna Collazo MD CHEMISTRY ORDERABLES Performing Organization Address City/[facility]/ZIP Code Phon e Number [address] Amylase (05/06/2018 1:24 AM EST) P athologist Signature Amylase 55 28 - 100 [facility] unit/L [facility] Specimen Anatomical Collection Method Collection Time Receive d Time (Source) Location / / Volume Laterality Blood specimen 05/06/2018 1:24 AM 019 1:44 (specimen) EST AM EST Resulting Agency Comment Spec In Lab Krishna Collazo MD CHEMISTRY ORDERABLES Performing Organization Address City/[facility]/ZIP [facility] [place] [address] (ABNORMAL) Comprehensive metabolic panel (non-fasting) (05/05/2018 6:32 PM EST) P athologist Signature Glucose Lvl 101 65 - 199 [facility] mg/dL [facility] Comment: Diabetes: >=200 mg/dL plus symp toms BUN 18 10 - 20 mg/dL [facility] LABORAT[facility] Creatinine 0.86 0.80 - 1.50 mg/dL [facility] LABORATORY Sodium 136 135 - 145 mmol/L [facility] LAB[facility]ORY Potassium 3.9 3.5 - 5.0 mmol/L [facility] Comment: Please note: ??Patients with WBC >100,00 0 may have falsely elevated Potassium levels. ??For accurate Potassium quantif ication in these patients send serum separator tube (gold top) for subsequent determinations. ??Contact the Clinical Chemistry Laboratory if there are any qu estions. Chloride 102 98 - 107 mmol/L [facility] CO2 21 (L) 22 - 31 mmol/L [facility] Anion Gap 13 5 - 15 mmol/L [facility] Calcium 8.3 (L) 8.5 - 10.5 mg/dL [facility] Total Protein 5.7 (L) 6.1 - 8.0 gm/dL [facility] Albumin 2.7 (L) 3.2 - 5.2 gm/dL [facility] AST 366 (H) 0 - 39 unit/L [facility] ALT 345 (H) 0 - 55 unit/L [facility] Alk Phos 130 (H) 40 - 120 unit/L [facility] Total Bilirubin 8.3 (H) 0.2 - 1.3 mg/dL [facility] Estimated GFR 96 >=60 mL/min/1.73 m?? [facility] Comment: The eGFR was calculated using the CKD-EP I equation. As with all creatinine based estimates of kidney function, eGFR values calculated with the CKD-EPI equation are not accurate in patients wi th acute kidney failure, extremes of body mass or the acutely ill. [email or web address] eGFR 111 >=60 mL/min/1.73 m?? [facility] Comment: The eGFR was calculated using the CKD-EP I equation. As with all creatinine based estimates of kidney function, eGFR values calculated with the CKD-EPI equation are not accurate in patients wi th acute kidney failure, extremes of body mass or the acutely ill. [email or web address] Specimen Anatomical Collection Method Collection Time Receive d Time (Source) Location / / Volume Laterality Blood specimen 05/05/2018 6:32 PM 018 6:42 (specimen) EST PM EST Resulting Agency Comment Spec In Lab Krishna Collazo MD CHEMISTRY ORDERABLES Performing Organization Address City/State/[place] [address] (ABNORMAL) Hemogram (05/05/2018 6:32 PM EST) athologist Signature WBC 21.7 (H) 4.0 - 9.5 [facility] x10(3)/[facility] LABORATORY RBC 3.68 (L) 4.58 - [facility] 5.54 [facility] x10(6)/[facility] LABORATORY Hemoglobin 11.5 (L) 13.7 - [facility] 16.5 gm/dL [facility] Hematocrit 34.1 (L) 40.5 - [facility] 48.5 % [facility] MCV 92.7 82.9 - [facility] 93.1 [facility]ATORY Comment: Interpret results with Caution. Specimen rerun and specimen ID confirmed.. This result has been called to MARI STEPHENSON by Adri Pierson on 05 05 2018 at 1918, and has been read back. MCH 31.3 27.5 - 32.1 pg [facility] MCHC 33.7 32.0 - 35.7 gm/dL [facility] Platelets 296 145 - 357 x10(3)/[facility] LABORATORY RDWSD 62.3 (H) 36.0 - 45.0 [facility] LABORATORY RDWCV 18.6 (H) 11.4 - 13.8 % [facility] MPV 10.5 7.6 - 12.9 [facility] LABORATORY nRBC % Auto 0.0 % [facility] nRBC Abs Auto 0.000 0.000 - 0.000 x10(3)/[facility] LABORATORY Specimen Anatomical Collection Method Collection Time Receive d Time (Source) Location / / Volume Laterality Blood specimen 05/05/2018 6:32 PM 018 6:42 (specimen) EST PM EST Resulting Agency Comment Spec In Lab Krishna Collazo MD HEMATOLOGY ORDERABLES Performing Organization Address City/State/[place] [address] (ABNORMAL) BLOOD GAS 2 ARTERIAL (05/05/2018 2:02 PM EST) Analysis Performed At Patho logist Time Signature pH Art 7.37 7.35 - [facility] 7.45 [facility] pCO2 Art 39 35 - 45 [facility] mmHg [facility] pO2 Art 230 (H) 85 - 104 [facility] HCO3 Art 22.4 20.0 - [facility] 26.0 [facility] mmol/L [facility] BE Art -2.8 -3.0 - 3.0 [facility] mmol/L [facility] Hgb Blood Gas 12.8 (L) 13.7 - [facility] 16.5 gm/dL [facility] O2HB Art 98.0 (H) 94.0 - [facility] 97.0 % [facility] COHB Art 1.1 % [facility] Comment: Nonsmokers: 0.5-1.5% COHB Smokers: Variable, but usually less than 10% Toxic: 20-30% COHB Lethal: Greater than 60% COHB METHB Art 0.3 <=1.5 % [facility] Na Whole Blood 134 (L) 135 - 145 mmol/L [facility] K Whole Blood 4.6 3.5 - 5.0 mmol/L [facility] Comment: Please note: Patients with WBC >100,000 may have falsely elevated Potassium levels. Contact the Clinical Chemistry L aboratory if there are any questions. ICa Whole Blood 1.11 (L) 1.15 - 1.33 mmol/L [facility] Comment: Note: ??Total bilirubin higher than 20 m g/dL may lead to falsely low ionized calcium. CL Whole Blood 106 98 - 107 mmol/L [facility] Gluc Whole Bld 142 65 - 199 mg/dL [facility] Comment: Diabetes: >=200 mg/dL plus symp toms. Lactate WB 1.1 0.5 - 2.2 mmol/L [facility] FIO2 Art 48 % [facility] PF Ratio Art 479 [facility] Temp Art 36.9 Celsius [facility] Specimen Anatomical Collection Method Collection Time Receive d Time (Source) Location / / Volume Laterality Blood specimen 05/05/2018 2:02 PM 018 2:02 (specimen) EST PM EST Krishna Collazo MD CHEMISTRY ORDERABLES Performing Organization Address City/[facility]/ZIP [place] [address] Specimen to Pathology (05/05/2018 1:38 PM EST) Specimen Anatomical Collection Method Collection Time Receive d Time (Source) Location / / Volume Laterality AP Specimen 05/05/2018 1:38 PM 8 1:49 EST PM EST Narrative [facility] - 05/05/2018 1:49 PM EST Specimen requisition ordered. ??Separate Pathology report to follow Resulting Agency Comment Spec In Lab Krishna Collazo MD PATHOLOGY/CYTOLOGY ORDERABLE S Performing Organization Address City/[facility]/ZIP [place] [address] Specimen to Pathology (05/05/2018 1:28 PM EST) Specimen Anatomical Collection Method Collection Time Receive d Time (Source) Location / / Volume Laterality AP Specimen 05/05/2018 1:28 PM 8 1:28 EST PM EST Narrative [facility] 05/05/2018 1:28 PM EST Specimen requisition ordered. ??Separate Pathology report to follow Krishna Collazo MD PATHOLOGY/CYTOLOGY ORDERABLE S Performing Organization Address City/[facility]/ZIP [facility] [place] [address] (ABNORMAL) Anaerobic Culture (05/05/2018 11:57 AM EST) [facility] Method Time Signature Anaerobic Few Clostridium perfringens MA RY Culture Rare Prevotella species [facility] OCK (A) [facility] Organism Clostridium KAYY perfringens (A) [facility] Organism Prevotella KAYY species (A) [facility] Specimen Anatomical Collection Method Collection Time Receive d Time (Source) Location / / Volume Laterality Bile specimen 05/05/2018 11:57 05/05/2018 2:15 (specimen) AM EST PM EST Resulting Agency Comment Spec In Lab Krishna Collazo MD MICROBIOLOGY - GENERAL ORDER GEE Performing Organization Address City/[facility]/ZIP [place] [address] (ABNORMAL) Body Fluid Culture, Aerobic (05/05/2018 11:57 AM EST) Component Value Ref Test Analysis Performed At [facility] Range Method Time Signature Body Fluid Moderate Klebsiella pneumoniae KAYY Culture Moderate Streptococcus viridans group : two morphologies [facility] Gram Stain Cytocentrifuge Gram Stain performed KAYY Neutrophils seen EDDY Many Gram Negative [facility] Many Gram Positive [facility] Moderate Gram Positive Cocci in pairs LABORATORY Results called to and read back by Maria T Collazo ??05/05/18 14 :48:03 (A) Organism Klebsiella KAYY pneumoniae (A) [facility] Organism Streptococcus KAYY viridans group [facility] Specimen Anatomical Collection Method Collection [...] Organization Address City/State/ZIP Code Phon e Number [address] Specimen to Pathology (05/05/2018 11:12 AM EST) Specimen Anatomical Collection Method Collection Time Receive d Time (Source) Location / / Volume Laterality AP Specimen 05/05/2018 11:12 05/05/2018 1:49 AM EST PM EST Narrative [facility] ORY - 05/05/2018 1:49 PM EST Specimen requisition ordered. ??Separate Pathology report to follow Resulting Agency Comment Spec In Lab Krishna Collazo MD PATHOLOGY/CYTOLOGY ORDERABLE S Performing Organization Address City/State/ZIP Code Phon e Number [place] [id number] [facility] LAB[address]ORY Drive Surgical Pathology Report (05/05/2018 11:11 AM EST) Component Value Ref Test Analysis Performed At [facility] gist Range Method Time Signature Surgical [id number] ? Location: 2WST; 0210; B [facility] Report The signing pathologist has (i) examined the relevant preparation(s) for the [facility] specimen(s) and (ii) rendered or confirmed [...] Stalin Amaya Verified: ??05/12/2018 ?Pathologist Performed at: ??-[facility] Dept. of Pathology, [facility], [place], [place] DISCUSSION 1. Prior diagnosis questioni ng [...] anterior serosal surface is inked red. Sections/Processing: Mold Breaker sections in 12 cassettes as follows: ? [...] margin and PD to lesion ? A11: ??Mold Breaker section of duodenum B - Labeled/Fixative: , [...] The hepatic margin is inked black Sections/Processing: Mold Breaker sections in 1 cassette as follows: ? C1: ??cystic duct margin and premium service representative mucosa. ??malorie ?Fro colton Section FROZEN SECTION DIAGNOSIS FS-A (Pancreatic neck margin): Negative for carcinoma. 05/05/18 14:12 Electronically signed by: ??Nicholas JENKINS PhD, Stalin Amaya Verified: ??05/05/2018 ?Pathologist Performed at: ??-[facility] Dept. of Pathology, [place], [place] This intraoperative consultation should be interpreted as a preliminary diagnosis pending review of the entire specimen and sp ecial studies, if any. Specimen (Source) Anatomical Collection Method Collection Time Re ceived Time Location / / Volume Laterality 05/05/2018 11:11 AM EST Krishna Collazo MD PATHOLOGY/CYTOLOGY ORDERABLE S Performing Organization Address City/State/[place] [address] (ABNORMAL) BLOOD GAS 2 ARTERIAL (05/05/2018 10:14 AM EST) Analysis Performed At Patho logist Time Signature pH Art 7.39 7.35 - [facility] 7.45 [facility] pCO2 Art 38 35 - 45 [facility] LABORATORY pO2 Art 232 (H) 85 - 104 [facility] LABORATORY HCO3 Art 22.3 20.0 - [facility] 26.0 [facility] mmol/L [facility] BE Art -2.7 -3.0 - 3.0 [facility] mmol/L [facility] Hgb Blood Gas 11.7 (L) 13.7 - [facility] 16.5 gm/dL [facility] O2HB Art 98.6 (H) 94.0 - [facility] 97.0 % [facility] COHB Art 0.3 % [facility] Comment: Nonsmokers: 0.5-1.5% COHB Smokers: Variable, but usually less than 10% Toxic: 20-30% COHB Lethal: Greater than 60% COHB METHB Art 0.3 <=1.5 % [facility] Na Whole Blood 135 135 - 145 mmol/L [facility] K Whole Blood 4.2 3.5 - 5.0 mmol/L [facility] Comment: Please note: Patients with WBC >100,000 may have falsely elevated Potassium levels. Contact the Clinical Chemistry L aboratory if there are any questions. ICa Whole Blood 1.16 1.15 - 1.33 mmol/L [facility] Comment: Note: ??Total bilirubin higher than 20 m g/dL may lead to falsely low ionized calcium. CL Whole Blood 105 98 - 107 mmol/L [facility] Gluc Whole Bld 116 65 - 199 mg/dL [facility] Comment: Diabetes: >=200 mg/dL plus symp toms. Lactate WB 0.8 0.5 - 2.2 mmol/L [facility] Specimen Anatomical Collection Method Collection Time Receive d Time (Source) Location / / Volume Laterality Blood specimen Arterial Draw / 05/05/2018 10:14 2017 4:07 (specimen) Unknown AM EST PM EST Resulting Agency Comment Spec In Lab Krishna Collazo MD CHEMISTRY ORDERABLES Performing Organization Address City/State/[place] [address] (ABNORMAL) BLOOD GAS 2 ARTERIAL (05/05/2018 10:14 AM EST) Analysis Performed At Patho logist Time Signature pH Art 7.39 7.35 - [facility] 7.45 [facility] pCO2 Art 38 35 - 45 [facility] LABORATORY pO2 Art 232 (H) 85 - 104 [facility] LABORATORY HCO3 Art 22.3 20.0 - [facility] 26.0 [facility] mmol/L [facility] BE Art -2.7 -3.0 - 3.0 [facility] mmol/L [facility] Hgb Blood Gas 11.7 (L) 13.7 - [facility] 16.5 gm/dL [facility] O2HB Art 98.6 (H) 94.0 - [facility] 97.0 % [facility] COHB Art 0.3 % [facility] Comment: Nonsmokers: 0.5-1.5% COHB Smokers: Variable, but usually less than 10% Toxic: 20-30% COHB Lethal: Greater than 60% COHB METHB Art 0.3 <=1.5 % [facility] Na Whole Blood 135 135 - 145 mmol/L [facility] K Whole Blood 4.2 3.5 - 5.0 mmol/L [facility] Comment: Please note: Patients with WBC >100,000 may have falsely elevated Potassium levels. Contact the Clinical Chemistry L aboratory if there are any questions. ICa Whole Blood 1.16 1.15 - 1.33 mmol/L [facility] Comment: Note: ??Total bilirubin higher than 20 m g/dL may lead to falsely low ionized calcium. CL Whole Blood 105 98 - 107 mmol/L [facility] Gluc Whole Bld 116 65 - 199 mg/dL [facility] Comment: Diabetes: >=200 mg/dL plus symp toms. Lactate WB 0.8 0.5 - 2.2 mmol/L [facility] FIO2 Art 48 % [facility] PF Ratio Art 483 [facility]ORY Specimen Anatomical Collection Method Collection Time Receive d Time (Source) Location / / Volume Laterality Blood specimen Arterial Draw / 05/05/2018 10:14 2017 3:49 (specimen) Unknown AM EST PM EST Resulting Agency Comment Spec In Lab Krishna Collazo MD CHEMISTRY ORDERABLES Performing Organization Address City/State/[place] [address] ABORH Recheck Status (05/05/2018 6:07 AM EST) [facility] gist Method Time Signature ABORH Recheck Order Placed [facility] LABORATORY ABORH Type Not performed [facility] LABORATORY Specimen Anatomical Collection Method Collection Time Receive d Time (Source) Location / / Volume Laterality Blood specimen 05/05/2018 6:07 AM 018 6:15 (specimen) EST AM EST Resulting Agency Comment Spec In Lab Krishna Collazo MD BLOOD BANK ORDERABLES Performing Organization Address City/State/Z[place] [address] Antibody screen (05/05/2018 6:07 AM EST) Patholo gist Method Time Signature Ab Screen Negative [facility] LABORATORY Expires at 05/08/2018 KAYY OROZCOJOSELINE [id number] on: [facility] Specimen Anatomical Collection Method Collection Time Receive d Time (Source) Location / / Volume Laterality Blood specimen 05/05/2018 6:07 AM 018 6:15 (specimen) EST AM EST Resulting Agency Comment Spec In Lab Krishna Collazo MD BLOOD BANK ORDERABLES Performing Organization Address City/[facility]/ZIP [place] [address] ABO/Rh Typing (05/05/2018 6:07 AM EST) P athologist Signature ABORh Type A Pos [facility] Specimen Anatomical Collection Method Collection Time Receive d Time (Source) Location / / Volume Laterality Blood specimen 05/05/2018 6:07 AM 018 6:15 (specimen) EST AM EST Resulting Agency Comment Spec In Lab Krishna Collazo MD BLOOD BANK ORDERABLES Performing Organization Address City/[facility]/ZIP [place] [address] documented in this encounter Visit Diagnoses Not on filedocumented in this encounter Admitting Diagnoses Diagnosis Pancreatic cancer Malignant neoplasm of pancreas, part uns pecified documented in this encounter Administered Medications Inactive Administered Medications - up to 3 most recent administrations Medication Order MAR Action Action Date Dose Rate Site acetaminophen (TYLENOL) tablet 650 Given 05/12/2018 5:37 AM EST 650 mg mg 650 mg, Oral, EVERY 6 HOURS SCHEDULED, First dose on Sat05/09/18 at 1200, Until Discontinued, Maximum dose of acetaminophen is 4000 mg from all sources in 24 hours., Routine Given 05/11/2018 5:10 PM EST 650 mg Given 05/11/2018 5:07 AM EST 650 mg bacitracin injection Given 05/05/2018 5:27 PM 50,000 Units 19- Surgi robinson Site ONCE PRN, Starting on Sat EST 05/05/18 at 1727, Until Sat05/12/18 at 1550, Intra-Operative (Intra-Procedure), Routine BUpivacaine liposome (PF) Given 05/05/2018 1:17 PM EST 4 mLs 19- Surgical Site (EXPAREL) 1.3 % (13.3 mg/mL) injection for infiltration ONCE PRN, Starting on 05/05/18 at 0914, Until Sat05/12/18 at 1550, Intra-Operative (Intra-Procedure) Given 05/05/2018 9:14 AM EST 36 mLs enoxaparin (LOVENOX) injection 40 mg Given 05/11/2018 8:17 PM EST 40 mg 40 mg, Subcutaneous, NIGHTLY, First dose on Sat05/07/18 at 2100, Until Discontinued, PATIENT TO SELF-ADMINISTER, Routine Given 05/10/2018 8:23 PM EST 40 mg Given 05/09/2018 8:19 PM EST 40 mg yeuhtd-qdhbirjt-sfkuqwf (CREON 24) Given 05/12/2018 11:10 AM EST 2 capsules 24,000-76,000 -120,[address] 1-2 capsule 1-2 capsule, Oral, 3 TIMES DAILY WITH MEALS, First dose (after last modification) on Sat05/11/18 at 1200, Until Discontinued, Per patient, Routine Given 05/12/2018 8:26 AM EST 2 capsules Given 05/11/2018 4:58 PM EST 2 capsules dspjiu-nielkpzx-oytlxxk (CREON 6) 6,000- 19,000 -30,[address] 1 capsule 1 capsule, Oral, WITH SNACKS, Starting o n 05/10/18 at 1329, Until Sat05/12/18 at 1550, Routine metoclopramide (REGLAN) tablet 10 mg Given 05/12/2018 11:10 AM EST 10 mg 10 mg, Oral, 4 TIMES DAILY BEFORE MEALS & NIGHTLY, First dose on Sat05/12/18 at 1130, Until Discontinued, GIVE REGARDLESS OF IF EATING OR NOT, Routine neomycin-polymyxin B Given 05/05/2018 5:28 PM EST 1 mL 19- Surgical Site (NEOSPORIN) irrigation solution ONCE PRN, Starting on 05/05/18 at 1728, Until Sat05/12/18 at 1550, Intra-Operative (Intra-Procedure) ondansetron (ZOFRAN-ODT) oral disintegra ting tablet 4 mg 4 mg, Oral, EVERY 8 HOURS PRN, Starting on Sat05/12/18 at 0827, Until Sat05/12/18 at 1550, Nausea, Routine oxyCODONE (ROXICODONE) immediate release tablet 5 mg 5 mg, Oral, EVERY 8 HOURS PRN, Starting on Sat05/12/18 at 0828, Until Sat05/12/18 at 1550, Pain, FOR PAIN UNCONTROLLED BY TYLENOL, Routine pantoprazole (PROTONIX) tablet 40 mg 40 mg, Oral, 2 TIMES DAILY, First dose o n Sat05/12/18 at 2100, Until Discontinued, DO NOT CRUSH OR OPEN, Routine senna-docusate (PERICOLACE) 8.6-50 mg per Given 2018 [...] Given 05/11/2018 9:00 AM EST 5 mLs documented in this encounter Active and Recently [...] 2100, Until Discontinued, PATIENT TO SELF-ADMINISTER, Routine qdzdgj-nlplyjmi-adnuzxz (CREON 24) 24,00 0-76,000 -120,[address] 1 capsule (CANCELED) 1700 (Given - Provider: Deb Vasquez RN) 1 capsule, Oral, 3 TIMES DAILY WITH MEAL S, First dose on Sat05/10/18 at 1700, Until Discontinued, Routine eyjaks-qrxuirlt-dsmbbgt (CREON 24) 24,00 0-76,000 -120,[address] 1-2 capsule 1210 (Given - Provider: Piero Gil)1658 (Given - Provider: Cammy Gil) 0826 (Given - Provider: Andrez Wong RN)1110 (Given - Provider: Andrez Wong RN) 1-2 capsule, Oral, 3 TIMES DAILY WITH ME ALS, First dose on Sat05/11/18 at 1200, Until Discontinued, Per patient, Routine sgfyjp-pgashrwp-tjrbfwa (CREON 6) 6,000- 19,000 -30,000 unit capsule [...] 10 mg 1110 (Given - Provider: Andrez Wong RN) 10 mg, Oral, 4 TIMES DAILY BEFORE MEALS & NIGHTLY, First dose on Sat05/12/18 at 1130, Until Discontinued, GIVE REGARDLESS OF IF EATING OR NOT, Routine pantoprazole (PROTONIX) injection 40 mg (CANCELED) 083 7 (Given - Provider: Deb Vasquez RN)2022 (Given - Provider: Janeth Figueredo RN) 0838 (Given - Provider: Cammy Gil)2017 (Given - Provider: Janeth Figueredo RN) 0826 (Given - Provider: Andrez Wong RN) 40 mg, Intravenous, 2 TIMES DAILY, First [...] Janeth Figueredo RN)0905 (Stopped - Provider: Deb Vasquez, SHAWANDA)1431 (New Bag - Provider: Deb Vasquez RN)1831 (Stopped - Provider: Deb Vasquez RN) 0132 (Stopped - Provider: Janeth garcia RN)0507 (New Bag - Provider: Janeth Figueredo RN)0907 (Stopped - Provider: Cammy Gil)1453 (New Bag - Provider: Cammy Gil)1853 (Stopped - Provider: Janeth Figueredo RN) 0207 (Stopped - Provider: Janeth garcia RN)0533 (New Bag - Provider: Janeth Figueredo, SHAWANDA)0933 (Stopped - Provider: Andrez Wong, SHAWANDA) 3.375 g, Intravenous, EVERY 8 HOURS, 22 doses, First dose on Sat05/05/18 at 1845, Last dose on Sat05/12/18 at 1430, Administer over 4 Hours, Warning Vesicant/Irritant Medication Do not administer 2131 (New Bag - Provider: Janeth Figueredo RN) 2206 (New Bag - Provider: Janeth Figueredo RN) or Y-site with lactated ringers., Recove ry (Recovery-Hospital Unit), Indication for (Active or Suspected): GI/Intra-abdominal senna-docusate (PERICOLACE) 8.6-50 mg per tablet 2 tab let 0838 (Given - Provider: Deb Vasquez, SHAWANDA)2022 (Given - Provider: Janeth Figueredo RN) 0840 (Given - Provider: Cammy Gil)2016 (Given - Provider: Janeth Figueredo RN) 0826 (Given - Provider: Andrez Wong, SHAWANDA) 2 tablet, Oral, 2 TIMES DAILY, First dos e on Sat05/09/18 at 0915, Until Discontinued, Routine sodium chloride 0.9 % flush 5 mL 0838 (Given - Provide r: Deb Vasquez, SHAWANDA)2023 (Given - Provider: Janeth Figueredo RN) 0900 (Given - Provider: Cammy Gil)2021 (Given - Provider: Janeth Figueredo RN) 0826 (Given - Provider: Andrez Wong, SHAWANDA) 5 mL, Intravenous, 2 TIMES DAILY, First dose on Sat05/05/18 at 2100, Until Discontinued, Recovery (Recovery-Hospital Unit), Routine Continuous Medication Order 05/10/2018 05/11/2018 05/12/2018 dextrose 5% and sodium chloride 0.45% wi potassium chloride 20 mEq infusion (CANCELED) 0332 (New Bag - Provider: Virginia esteves, RN)0800 (Stopped - Provider: Deb Vasquez RN) 75 mL/hr, at 75 mL/hr, Intravenous, CONT INUOUS, Starting 05/06/18 at 0815, Until 05/10/18 at 0832, Warning Vesicant/Irritant Medication PRN Medication Order 05/10/2018 05/11/2018 05/12/2018 lidocaine (XYLOCAINE) 10 mg/mL (1 %) injection 3 mg 3 mg (0.3 mL), Subcutaneous, ONCE PRN, 1 dose, Starting 05/05/18 at 2034, Until Sat05/12/18 at 1550, for discomfort with PIV insertion, Recovery (Recovery- Hospital Unit), Routine nalOXone (NARCAN) injection 0.2 mg 0.2 mg, Intravenous, EVERY 1 MIN PRN, St arting 05/05/18 at 2034, Until Sat05/12/18 at 1550, Opioid Reversal, May repeat every 60 seconds to increase respiratory rate. DO NOT exceed 2 mg total dose. * * Per POTATO INSPECTOR order., Recovery (Recovery-Hospital Unit), Routine ondansetron (ZOFRAN) injection 4-8 mg (CANCELED) 2050 (Given - Provider: Janeth Figueredo RN) 4-8 mg, Intravenous, EVERY 8 HOURS PRN, Starting 05/05/18 at 2034, Until Sat05/12/18 at 0829, Nausea, Vomiting, If multiple antiemetics are ordered, use ondansetron first Start with 4 mg. May repeat times one in 30 minutes if ineffective. ondansetron (ZOFRAN-ODT) oral disintegrating tablet 4 mg 4 mg, Oral, EVERY 8 HOURS PRN, Starting Sat05/12/18 at 0827, Until Sat05/12/18 at 1550, Nausea, Routine oxyCODONE (ROXICODONE) immediate release tablet 5 mg 5 mg, Oral, EVERY 8 HOURS PRN, Starting Sat05/12/18 at 0828, Until Sat05/12/18 at 1550, Pain, FOR PAIN UNCONTROLLED BY TYLENOL, Routine sodium chloride 0.9 % flush 5-20 mL 5-20 mL, Intravenous, EVERY 1 MIN PRN, S tarting Sat05/05/18 at 2034, Until Sat05/12/18 at 1550, flush, Flush pertains to all indwelling lines. Flush per protocol found in the job aid using the link prov ided on this medication record., Recovery ([facility] t), Routine documented in this encounter Care Teams Hepatology Physician Relationship Specialty Start Date End Date Corrie Pacheco APRN PCP - General Family Medicine 04/04/18 [address] [place] [place] [address] documented as of this encounter
--- OUTSIDE RECORDS SUMMARY | 2022-02-23 01:45 | XMS_ITS | Encounter Summary ---
:1960 Author Organization [place] [address] Care Team Providers Name Role Phone Corrie Pacheco APRN Primary Care Provider Encounter Details Date Type Department Care Team Description 04/25/2018 Telephone Hematology [place] Oncology [place] [address] Social History Tobacco Use Types Packs/Day Years [...] this encounter Miscellaneous Notes Telephone Encounter - Kathleen Bangura RD - 04/25/2018 11:57 AM EST Called Jaciel to check in with him--he started dosing Creon 24 with meals and feels it has helped--dosing 1-3 with meals as prescribed. Eating and appetite have both improved and he thinks he may have gained a couple of pounds-certainly not losing any more weight. He has experienced constipation following recent laparoscopy so we discussed dosing miralax today. Reinforced dosing and timing of PERT. Surgery is scheduled for 05/05/18--will plan f/u once he is discharged home. documented in this encounter Plan of Treatment Upcoming Encounters Date Type Specialty Care Team Description 02/23/2022 Office Visit Hematology and Oncology Gigi Sosa MD [facility] [place] [address] Ebonie Gordon APRN [address] [place] [address] [place] [address] documented as of this encounter Visit Diagnoses Not on filedocumented in this encounter Care Teams Network Development Coordinator Relationship Specialty Start Date End Date Corrie Pacheco APRN PCP - General Family Medicine 04/04/[address] [place], [place] [id number] documented as of this encounter
--- OUTSIDE RECORDS SUMMARY | 2022-02-23 01:46 | XMS_ITS | Encounter Summary ---
:1960 Author Organization [facility] [place] [address] Care Team Providers Name Role Phone Corrie Pacheco APRN Primary Care Provider Reason for Visit Auth/Cert Specialty Diagnoses / Procedures Referred By Contact Refer red To Contact Diagnoses stent change Procedures PRO ERCP,DIAGNOSTIC ERCP Referral ID Status Reason Start Date Expiration Date Visits Requ ested Visits Authorized [id number] 1 1 Encounter Details Date Type Department Care Team Description 04/16/2018 Surgery G[place]ology [place] [facility] Mahamed Bro MD ERCP [facility] [place] [facility] [place] [address] [place] [address] [phone] (Wo rk) Social History Tobacco Use Types [...] Sign Reading Time Taken Comments Blood Pressure 120/66 04/16/2018 1:14 PM EST Pulse 51 04/16/2018 1:14 PM EST Temperature 36.9 ??C (98.4 ??F) 04/16/2018 1:14 PM EST Respiratory Rate 18 04/16/2018 1:14 PM EST Oxygen Saturation 100% 04/16/2018 1:14 PM EST Inhaled Oxygen Concentration - - Weight - - Height - - Body Mass Index - - documented in this encounter Discharge Instructions Discharge InstructionsBeth Clarke RN - 04/16/2018 4:47 PM EST Please call [phone] before 8pm Mon-Fri with problems, questions or concerns. If you call after 8pm or on weekends, call the Hospital at [phone] and ask to speak to the Electron Tube Assembler roll on worker and the popcorn machine operator will contact that person for you. AttachmentsThe following attachments cannot be sent through Care Everywhere.ERCP (ENDOSCOPIC RETROGRADE CHOLANGIOPANCREATOGRAM): POST-OP (BURMESE)documented in this encounter Medications at Time of [...] times daily Capsule as needed for Constipation. kexexc-kezacixk-itivzn Take 1-2 capsules by 270 capsule 3 [...] mL Syringe subcutaneously nightly for 22 days. rbtgsz-jabtyikm-hgaodi Take 1-3 capsules by 270 capsule 3 05/12/2018 e (CREON) mouth 3 times daily 24,000-76,000 -120,000 (with meals). unit Capsule, Delayed Release(E.C.)Indicatio ns: Exocrine pancreatic insufficiency omeprazole (PRILOSEC) Take 1 capsule by 90 capsule 3 018 05/19/2018 40 mg Capsule, Delayed mouth daily for 360 Release(E.C.)Indicatio days. ns: Exocrine pancreatic insufficiency documented as of this encounter H&P Notes Simon Kong MD - 04/16/2018 3:17 PM EST PROBLEM LIST Patient Active Problem List Diagnosis Code ??? Malignant neoplasm of head of pancreas C25.0 ??? Exocrine pancreatic insufficiency K86.81 HISTORY OF PRESENT ILLNESS Jaciel Combs is a 57 y.o. man who presents for endoscopic evaluation of biliary obstruction due to pancreas cancer. MEDICATIONS No current facility-administered medications on file prior to encounter. Current Outpatient Medications on File Prior to Encounter Medication Sig Dispense Refill ??? urriax-moxpngfg-ypssmnj (CREON) 24,000-76,000 -120,000 unit Capsule, Delayed Release(E.C.) Take 1-3 capsules by mouth 3 times daily (with meals). 270 capsule 3 ??? omeprazole (PRILOSEC) 40 mg Capsule, Delayed Release(E.C.) Take 1 capsule by mouth daily for 360days. 90 capsule 3 PHYSICAL EXAM: Blood pressure 120/66, pulse 51, temperature 36.9 ??C (98.4 ??F), temperature source Oral, resp. rate 18, SpO2 100 %. GEN: Alert, cooperative. Pleasant. In NAD Rest per anesthesia documentation RECENT LABS No results found for this or any previous visit (from the past 24 hour(s)). ASSESSMENT AND PLAN Jaciel Combs is a 57 y.o. man who presents for endoscopic evaluation. Risks extensively discussed including bleeding, infection, reaction to anesthesia, perforation, pancreatitis (if applicable), bileduct injury (if applicable), missing a cancer (if applicable) and/or other unforseen complication. Consent signed and patient well informed of the risks of the procedure. documented in this encounter Miscellaneous Notes Op Note - Mahamed Bro MD - 04/16/2018 5:07 PM EST [facility] Procedure Note Patient Name: Jaciel Combs : [id number] MR#: [id number] Case Date: 04/16/2018 Surgeon: Surgeon(s) and Role: * Mahamed Bro MD - Primary * Simon Kong MD - Fellow Preoperative diagnosis: stent change Findings: See Provation Note documented in this encounter Plan of Treatment Upcoming Encounters Date Type Specialty Care Team Description 02/23/2022 Office Visit Hematology and Oncology Gigi Sosa MD [facility] [place] [address] Eobnie Gordon, [address] [place] [address] Pending Results Name Type Priority Associated Diagnoses Date/Ti me XR ERCP Imaging Storage Only Routine 018 3:27 PM EST Scheduled Orders Name Type Priority Associated Diagnoses Order S chedule XR ERCP Imaging Storage Only Routine Once UT N (for Radiant use) for 1 Occurrenc es starting 04/16/2018 unti l 04/16/2018 documented as of this encounter Procedures Procedure Name Priority Date/Time Associated Diagnosis Comme nts ERCP, W REMOVAL& 04/16/2018 3:30 PM stent change EXCHANGE STENT, EST BILIARY/PANCREATIC DUCT ERCP W/REMOVAL 04/16/2018 3:30 PM stent change CALCULI/DEBRIS FROM EST BILARY/PANCREATIC DUCT(S) ERCP 04/16/2018 3:30 PM stent change EST ERCP Routine 04/16/2018 3:24 PM Results f or this EST procedure are i n the results section. documented in this encounter Results ERCP (04/16/2018 3:24 PM EST) Component Value Ref Test Analysis Performed At [facility] Range Method Time Signature ERCP [facility] Endoscopy Procedure Date: 04/16/2018 3:24 PM ? Patient Name: Jaciel Combs ? Date of : 1960 ? Age: 57 ? Order #: [id number] ? Instrument Name: [id number] ? Procedure: ? ERCP Indications: ? Malignant stricture of the common ? bile duct, Stent change Providers: ? Mahamed Bro MD, Simon Kong, ? Huber Bo RN, Badillo Haydee Alcala MD: ?Corrie Pacheco MD Medicines: ? Monitored Anesthesia Care Complications: ? No immediate complications. Procedure: ? Pre-Anesthesia Assessment: ? - ASA Grade Assessment: III - A ? patient with severe systemic disease. ? - Prior to the procedure, a H istory ? and Physical was performed, a nd ? patient medications, allergie s and ? sensitivities were reviewed. The ? patient's tolerance of previo us ? anesthesia was reviewed. ? - The risks and benefits of t he ? procedure and the sedation op tions ? and risks were discussed with the ? patient. All questions were a nswered ? and informed consent was obta ined. ? - Patient identification and proposed ? procedure were verified prior to the ? procedure by the physician, t jabari ? nurse, the superintendent stations and e ? life support technician. The procedure was ? verified in the pre-procedure area in ? the procedure room. ? - Pre-procedure physical exam ination ? revealed no contraindications to ? sedation. ? The procedure, indications, b enefits, ? risks and alternatives were e xplained ? to the patient. Specifically ? discussed were potential ? complications including, but not ? limited to, bleeding, perfora tion, ? infection, pancreatitis, miss ing a ? cancer, and adverse medicatio n ? reactions.The Duodenoscope wa s ? introduced through the mouth, and ? advanced to the duodenum wher e it was ? used to inject contrast into and used ? to inject contrast into the b ile ? duct. The ERCP was accomplish ed ? without difficulty. The patie nt ? tolerated the procedure well. ? Findings: ? A biliary stent was visible on the nurse wound care film. The ? esophagus was successfully intubated under direct ? vision without detailed examination of the pharynx, ? larynx, and associated structures, and upper GI ? tract. The upper GI tract was grossly normal. One ? metal stent originating in the biliary tree was ? emerging from the major papilla. A 0.035 inch x 260 ? cm straight Dreamwire was passed into the biliary ? tree. The 12 mm balloon was passed over the guidewire ? and the bile duct was then deeply cannulated. ? Contrast was injected. I personally interpreted the ? bile duct images. Ductal flow of contrast was ? adequate. Image quality was excellent. Contrast ? extended to the main bile duct, cystic duct, ? gallbladder, the bifurcation, and the hepatic ducts. ? The wire, however, was difficult to advance through ? the stent into the hepatic ducts because the proximal ? portion of the stent was in the cystic duct. ? Therefore, the stent was removed from the biliary ? tree using a rat-toothed forceps. The wire was then ? advanced into the hepatic ducts. A 12 mm balloon was ? passed over the wire and occlusion cholangiogram ? confirmed that the wire was in the hepatic ducts. ? This also confirmed a persistent malignant stricture ? in the distal common bile duct. Following this a 10 ? Fr by 9 cm transpapillary temporary plastic biliary ? stent with a single external flap and a single ? internal flap and a 7 Fr by 7 cm transpapillary ? temporary plastic biliary stent with a single ? external flap and a single internal flap were placed ? into the common bile duct. Bile flowed through the ? stents and they appeared to be in good position. ? Moderate Sedation: ? Not applicable - See Anesthesia documentation Impression: ?- Preexisting metal stent removed ? - Persistent malignant strict ure in ? the distal common bile duct. ? - Two temporary plastic bilia ry ? stents placed through the str icture ? with good bile drainage. Recommendation: ?- Discharge patient to home (with ? escort). ? - Full liquid, low fat diet t john ? then advance as tolerated. ? - Repeat ERCP in 3 months to exchange ? stent if a surgical procedure has not ? resolved the stricture. ? Attending Participation: ? I was present and participated during the entire ? procedure, including non-diaz portions. ? Mahamed Bro MD 04/16/2018 5:16:26 PM Number of Addenda: 0 Note Initiated On: 04/16/2018 3:24 PM Specimen (Source) Anatomical Collection Method Collection Time Re ceived Time Location / / Volume Laterality 04/16/2018 3:24 PM EST Corrie Pacheco APRN GENERAL SURGICAL ORDERABLES Performing Organization Address City/State/ZIP Code Phon e Number [place] documented in this encounter Visit Diagnoses Not on filedocumented in this encounter Administered Medications Inactive Administered Medications - up to 3 most recent administrations Medication Order MAR Action Action Date Dose Rate Site lactated Ringers infusion New Bag 04/16/2018 3:33 PM EST 100 mL/hr, Intravenous, CONTINUOUS, Starting on Sat04/16/18 at 1345, Until Sat04/16/18 at 2001, Endoscopy (Day of Procedure) documented in this encounter Active and Recently Administered Medications Times are shown in EST. Continuous Medication Order 04/14/2018 04/15/2018 04/16/2018 lactated Ringers infusion 1533 ( New Bag - Provider: Rad Verma CRNA) 100 mL/hr, at 100 mL/hr, Intravenous, CO NTINUOUS, Starting Sat04/16/18 at 1345, Until Sat04/16/18 at 2001, Endo (Day of Procedure) documented in this encounter Care Teams Counselor/Art Therapist Relationship Specialty Start Date End Date Corrie Pacheco APRN PCP - General Family Medicine 04/04/18 [address] [place] [address] documented as of this encounter
--- OUTSIDE RECORDS SUMMARY | 2022-02-23 01:46 | XMS_ITS | Encounter Summary ---
:1960 Author Organization [facility] [place] [address] Care Team Providers Name Role Phone Corrie Pacheco APRN Primary Care Provider Reason for Referral Diagnostic Test (Routine) - Closed Specialty Diagnoses / Procedures Referred By Contact Refer red To Contact Radiology Diagnoses Mass of pancreas Felipe Soto MD [facility] Rad Ct Scan Procedures CT Chest Abdomen Pelvis w Contrast (Generic) [facility] [place] [address] [place] [address] Referral ID Status Reason Start Date Expiration Date Visits V isits Requested Authorized [id number] Closed Specialty 04/04/2018 05/19/2018 1 1 Service Requested Encounter Details Date Type Department Care Team Description 04/04/2018 Orders Only [place]ology [place] [facility] [place]ipe Soto Mass of pancreas [facility] [place] [address] [facility] [phone] GASTROENTEROLOGY [place], [place] [address] Social History Tobacco Use Types Packs/Day Years Used Date Never Assessed Alcohol Habits Answer Date Recorded How often do you have a drink containing alcohol? Never 04/16/2018 How many drinks containing alcohol do you have on a typical Not asked day when you are drinking? How often do you have six or more drinks on one occasion? No t asked Comment: Not asked Financial Resource Strain Answer Date Recorded How [...] MD [facility] [place] [address] Ebonie Gordon, [address] [place] [address] documented as of this encounter Results CT Chest Abdomen Pelvis w Contrast (Generic) (04/04/2018 6:04 PM EST) Anatomical Region Laterality Modality Abdomen, Pelvis Computed Tomography Specimen (Source) Anatomical Location Collection Method / Collectio n Time Received Time / Laterality Volume Impressions 04/04/2018 6:14 PM EST 1. ??Hypodense mass noted along RIGHT lateral border of the pancreatic head, compatible with a history of pancreatic neoplasm.. No vascular involvement. 2. ??No evidence of metastasis. Narrative 04/04/2018 6:14 PM EST EXAMINATION: CT CHEST ABDOMEN PELVIS W CONTRAST (GENERIC) CLINICAL HISTORY: new diagnosif pf pancr eatic cancer - staging TECHNIQUE: Helical CT of the chest, abdo men, and pelvis was performed following intravenous administration of 83 ml of O mnipaque 350 Oral contrast was administered. COMPARISON: Recent study from 03/31/2018 of the abdomen and pelvis FINDINGS: Chest: Lungs and large airways: No pulmonary no dules or areas of airspace consolidation. Pleura: No effusion. Heart/vasculature: Normal. Lymph nodes: No enlarged lymph nodes. Mediastinum and karen: Normal. Abdomen/pelvis: Liver: Normal size and attenuation witho ut lesions. Bile ducts: Pneumobilia secondary to a s tent in the distal common bile duct. Gallbladder: Distended, measuring 4.9 cm in the transverse dimension. No gallbladder wall thickening. No perichol ecystic fluid. Pancreas: On the arterial phase images ( series 4) an approximate 1.6 x 1.8 cm hypodense lesion is seen in the head of the pancreas. The lesion abuts the adjacent second portion of the duodenum. The lesion is remote from the superior mesenteric artery and superior mesenteri c vein which are not involved. No celiac axis involvement. A stent is noted in th e distal pancreatic duct. There has been resultant decompression of the previousl y noted pancreatic ductal dilatation. Spleen: Normal. Adrenals: Normal. Kidneys: Normal. Urinary Bladder: Normal. Vasculature: No aneurysm. Lymph Nodes: ??No enlarged lymph nodes. Bowel: Nondilated, no wall thickening. ? ? Peritoneum and mesentery: No ascites, fr ee air, or loculated fluid collection. No mesenteric inflammation. Abdominal wall: Normal. Reproductive organs: Normal. Osseous structures: No suspicious lesion s. Procedure Note Andrez Stallworth MD - 04/04/2018Form atting of this note might be different from the original. EXAMINATION: CT CHEST ABDOMEN PELVIS W CONTRAST (GENERIC) CLINICAL HISTORY: new diagnosif pf pancr eatic cancer - staging TECHNIQUE: Helical CT of the chest, abdo men, and pelvis was performed following intravenous administration of 83 ml of O mnipaque 350 Oral contrast was administered. COMPARISON: Recent study from 03/31/2018 of the abdomen and pelvis FINDINGS: Chest: Lungs and large airways: No pulmonary no dules or areas of airspace consolidation. Pleura: No effusion. Heart/vasculature: Normal. Lymph nodes: No enlarged lymph nodes. Mediastinum and karen: Normal. Abdomen/pelvis: Liver: Normal size and attenuation witho ut lesions. Bile ducts: Pneumobilia secondary to a s tent in the distal common bile duct. Gallbladder: Distended, measuring 4.9 cm in the transverse dimension. No gallbladder wall thickening. No perichol ecystic fluid. Pancreas: On the arterial phase images ( series 4) an approximate 1.6 x 1.8 cm hypodense lesion is seen in the head of the pancreas. The lesion abuts the adjacent second portion of the duodenum. The lesion is remote from the superior mesenteric artery and superior mesenteri c vein which are not involved. No celiac axis involvement. A stent is noted in th e distal pancreatic duct. There has been resultant decompression of the previousl y noted pancreatic ductal dilatation. Spleen: Normal. Adrenals: Normal. Kidneys: Normal. Urinary Bladder: Normal. Vasculature: No aneurysm. Lymph Nodes: No enlarged lymph nodes. Bowel: Nondilated, no wall thickening. Peritoneum and mesentery: No ascites, fr ee air, or loculated fluid collection. No mesenteric inflammation. Abdominal wall: Normal. Reproductive organs: Normal. Osseous structures: No suspicious lesion s. IMPRESSION 1. Hypodense mass noted along RIGHT late ral border of the pancreatic head, compatible with a history of pancreatic neoplasm.. No vascular involvement. 2. No evidence of metastasis. Felipe Soto MD IMG CT ORDERABLES documented in this encounter Visit Diagnoses Diagnosis Mass of pancreas Unspecified disease of pancreas Mass of pancreas Unspecified disease of pancreas documented in this encounter Care Teams Cut Off Worker Relationship Specialty Start Date End Date Corrie Pacheco APRN PCP - General Family Medicine 04/04/18 [place] [address] documented as of this encounter
--- OUTSIDE RECORDS SUMMARY | 2022-02-23 01:46 | XMS_ITS | Encounter Summary ---
:1960 Author Organization [facility] [address] Care Team Providers Name Role Phone Corrie Pacheco APRN Primary Care Provider Encounter Details Date Type Department Care Team Description 04/10/2018 Telephone Gastroenterology at [facility] Lisa Hutchinson, [facility] [place] [address] Social History Tobacco Use Types Packs/Day [...] this encounter Miscellaneous Notes Telephone Encounter - Lisa Hutchinson RN - 04/10/2018 10:56 AM EST Call placed to Jaciel to discuss pancreas tumor clinic for next week. No answer at home. for return call. Call placed to cell. # not working. Good Afternoon, Can the following patient please be added to [facility] Sunday 04/15? All providers. Thanks -Rectal Cancer Clinic Patient : No -Pancreatic Cancer Clinic Patient: YES -Pt name: Jaciel Combs -Pt age: 57 -Pt Location: [place], [place] - -Name of presenter: Soto -Dx: pancreatic adenocarcinoma -Pathology, Cytology, Histology needed: Cytology 04/04/18 -Radiology needed: CT c/a/p 04/04 Thanks Ellen documented in this encounter Plan of Treatment Upcoming Encounters Date Type Specialty Care Team Description 02/23/2022 Office Visit Hematology and Oncology Gigi Sosa MD [facility] [place] [address] Ebonie Gordon APRN [address] [place] [address] DR MEDICAL ONCOLOGY [place], [place] [id number] documented as of this encounter Visit Diagnoses Not on filedocumented in this encounter Care Teams Hotel Guest Service Agent Relationship Specialty Start Date End Date Corrie Pacheco APRN PCP - General Family Medicine 04/04/[address] [place], [place] [id number] documented as of this encounter
--- OUTSIDE RECORDS SUMMARY | 2022-02-23 01:46 | XMS_ITS | Encounter Summary ---
:1960 Author Organization [facility] [place] [address] Care Team Providers Name Role Phone Unavailable Primary Care Provider Unavailable Encounter Details Date Type Department Care Team Description 04/01/2018 Telephone Gastroenterology [place] [facility] Cecelia Pickett [facility] [place] [address] Social History Tobacco Use Types Packs/Day [...] Notes Telephone Encounter - Cecelia Pickett - 04/01/2018 4:49 PM EST Jaciel Combs [id number] Diagnosis: EUS 1. Have you ever had a EUS before? [] YES [x] NO If Yes, Date of Last Freeman: If yes, did you have any problems with the procedure? [] YES [] NO Explain: What type of sedation was used: 2. Do you take any Blood Thinners? [] YES [x] NO If Yes, type: 3. Do you have a Pacemaker or Defibrillator device? [] YES [x] NO If Yes send [employer] message to Phone[employer] DEVICE CHECK 4. Are you a diabetic? [...] NO 11. You must have a responsible libertarian stay at the facility during your procedure and drive you home? [x] YES 12. Is there any other information you would like to give us to aid in scheduling? Height: ___5'10____ Weight:_170___ BMI: ____ Age:57 y.o. documented in this encounter Plan of Treatment Upcoming Encounters Date Type Specialty Care Team Description 02/23/2022 Office Visit Hematology and Oncology Gigi Sosa MD [facility] [place] [address] Ebonie Gordon, [address] [place] [address] documented as of this encounter Visit Diagnoses Not on filedocumented in this encounter
--- OUTSIDE RECORDS SUMMARY | 2022-02-23 01:46 | XMS_ITS | Encounter Summary ---
:1960 Author Organization [facility] [place] [address] Care Team Providers Name Role Phone Corrie Pacheco APRN Primary Care Provider Reason for Visit Auth/Cert Specialty Diagnoses / Procedures Referred By Contact Refer red To Contact Diagnoses Pancreas cancer PANCREAS CANCER Procedures PRO LAP, DX SURGICAL ABD W/BIOPSY LAPAROSCOPY,SURGICAL,WITH BIOPSY, SINGLE OR MULTIPLE (WRVU 5.44) Referral ID Status Reason Start Date Expiration Date Visits Requ ested Visits Authorized [id number] 1 1 Encounter Details Date Type Department Care Team Description 04/23/2018 Hospital Encounter Outpatient Surgery Yvonne Collazo, [place] [address] [place] [address] [phone] Social History Tobacco Use Types Packs/Day Years [...] Reading Time Taken Comments Blood Pressure 124/67 04/23/2018 5:00 PM EST Pulse 55 04/23/2018 5:00 PM EST Temperature 36.6 ??C (97.9 ??F) 04/23/2018 4:08 PM EST Respiratory Rate 16 04/23/2018 5:00 PM EST Oxygen Saturation 100% 04/23/2018 5:00 PM EST Inhaled Oxygen Concentration - - [...] closest emergency room or call the hospital evaporator operator at [phone] and ask for physician radiation monitor covering for your physician. Questions or problems after 5pm or on a weekend: Call the [facility] evaporator operator at and ask for the physician radiation monitor covering for your doctor. Patient InstructionsNeAimee mcfadden MD - 04/23/2018 4:03 PM EST Instructions [...] 101.3 F. The number for questions is [phone] before 5 PM weekdays and [phone] after 5 PM and weekends. Pain Medication: [...] times daily Capsule as needed for Constipation. [id number] Take 1-2 capsules by 270 capsule 3 [...] mL Syringe subcutaneously nightly for 22 days. [id number] Take 1-3 capsules by 270 capsule 3 [...] having whipple and plan for chemotherapy after. Estela Collazo MD 04/23/2018 3:03 PM documented in this encounter Miscellaneous Notes Op Note - Lázaro Collazo MD - 04/23/2018 4:00 PM EST [facility] Patient Name: Jaciel Combs : [id number] MR#: [id number] Case Date: 04/23/2018 Surgeon: Surgeon(s) and Role: [...] MD [facility] [place] [address] [address] [place] [address] documented as of this encounter Procedures Procedure Name Priority Date/Time Associated Diagnosis Comme nts HEPATIC FUNCTION Routine 04/23/2018 3:33 PM Resul ts for this PANEL EST procedure are i n the results section. LAPAROSCOPY, Yes 04/23/2018 3:13 PM pancreas cancer DIAGNOSTIC, ABDOMEN EST (WRVU 5.14) documented in this encounter Results (ABNORMAL) Hepatic Function Panel (04/23/2018 3:33 PM EST) [facility] Method Time Signature Total Protein 5.8 (L) 6.1 - 8.0 [facility]SE[facility] gm/dL [facility] Albumin 2.8 (L) 3.2 - 5.2 [facility]SE[facility] gm/dL [facility] AST 77 (H) 0 - 39 [facility] JOSE[facility] unit/L [facility] ALT 85 (H) 0 - 55 [facility] unit/L [facility] Alk Phos 239 (H) 40 - 120 [facility] Total 15.9 (H) 0.2 - 1.3 [facility] Bilirubin mg/dL [facility] Bili, Direct >10.0 (H) 0.0 - 0.3 [facility] Specimen Anatomical Collection Method Collection Time Receive d Time (Source) Location / / Volume Laterality Blood specimen 04/23/2018 3:33 PM 018 3:51 (specimen) EST PM EST Resulting Agency Comment Spec In Lab Andrez Drummond MD CHEMISTRY ORDERABLES Performing Organization Address City/State/[place] [address] documented in this encounter Visit Diagnoses Not on filedocumented in this encounter Administered Medications Inactive Administered Medications - up to 3 most recent administrations Medication Order MAR Action Action Date Dose Rate Site acetaminophen (TYLENOL) tablet 650 Given 04/23/2018 4:32 PM EST 650 mg mg 650 mg, Oral, EVERY 4 HOURS PRN, Starting on Sat04/23/18 at 1604, Until Sat04/23/18 at 1912, Pain, Maximum dose of acetaminophen is 4000 mg from all sources in 24 hours., Routine ibuprofen (ADVIL;MOTRIN) tablet 600 mg 600 mg, Oral, EVERY 6 HOURS PRN, Starting on 04/23 at 1604, Until Sat04/23/18 at 1912, Pain, [...] (CANCELED) 1244 (New Bag - Provider: Armani Schumacher RN) 1,000 mL, at 100 mL/hr, Intravenous, CON TINUOUS, Starting Sat04/23/18 at 1230, Until Sat04/23/18 at 1711, Day of Surgery (Day of Procedure) PRN Medication Order 04/21/2018 04/22/2018 04/23/2018 acetaminophen (TYLENOL) tablet 650 mg 1632 (Given - Provider: Magui Gibson V, RN) 650 mg, Oral, EVERY 4 [...] Routine documented in this encounter Care Teams Director Summer Sessions Relationship Specialty Start Date End Date Corrie Pacheco APRN PCP - General Family Medicine 04/04/[address] [place] [address] documented as of this encounter
--- OUTSIDE RECORDS SUMMARY | 2022-02-23 01:46 | XMS_ITS | Encounter Summary ---
:1960 Author Organization [facility] Address [facility] [place] [address] Care Team Providers Name Role Phone Unavailable Primary Care Provider Unavailable Encounter Details Date Type Department Care Team Description 03/31/2018 Telephone Gastroenterology at [facility] José Rae MD [facility] [place] [address] GASTROENTEROLOGY DEPT [phone] [place], [place] [address] (Wo rk) Social History Tobacco [...] this encounter Miscellaneous Notes Telephone Encounter - José Rae MD - 03/31/2018 6:46 PM EST Called by OSH. Patient presents with painless jaundice + white stools. T bili 6, CT with pancreatic head mass (imaging currently being pushed over). Will arrange for outpatient EUS. documented in this encounter Plan of Treatment Upcoming Encounters Date Type Specialty Care Team Description 02/23/2022 Office Visit Hematology and Oncology Gigi Sosa MD [facility] [place] [address] Ebonie Gordon, [address] [place] [address] Scheduled Orders Name Type Priority Associated Diagnoses Order S chedule UPPER EUS-ENDOSCOPIC Procedures Routine Pancreatic mass Orde red: 03/31/2018 ULTRASOUND documented as of this encounter Visit Diagnoses Diagnosis Pancreatic mass Unspecified disease of pancreas documented in this encounter
--- OUTSIDE RECORDS SUMMARY | 2022-02-23 01:46 | XMS_ITS | Encounter Summary ---
:1960 Author Organization [facility] [place] [address] Care Team Providers Name Role Phone Corrie Pacheco APRN Primary Care Provider Reason for Visit Auth/Cert Specialty Diagnoses / Procedures Referred By Contact Refer red To Contact Diagnoses Disease of pancreas, unspecified panc head mass Procedures PRO ENDOSCOPIC US EXAM, ESOPH UPPER EUS- ENDOSCOPIC ULTRASOUND Referral ID Status Reason Start Date Expiration Date Visits Requ ested Visits Authorized [id number] 1 1 Encounter Details Date Type Department Care Team Description 04/04/2018 Anesthesia Event Gastroenterology at [facility] Jonathan Monroy MD [facility] [address] [facility] Benjamin Escudero Jr., CRNA [facility] [place] [address] [place] [address] Anesthesia Record Procedure Summary Procedure Name Responsible Anesthesia Start Anesthesia Stop Anesthesiologist Time Time UPPER EUS- Jonathan Monroy MD 04/04/18 1342 04/04/18 151 6 ENDOSCOPIC ULTRASOUND (N/A Trunk) Events Date Time Event Comment 04/04/2018 1329 1342 AN Verify 1342 Start 1342 An Start Data 1347 An Induction 1349 Anesthesia Ready 1349 An Intubation 1352 Procedure Start 1509 Extubation/LMA Out 1512 an stop data 1514 Recovery or ICU Handoff Patient care was transferred to the destination unit staff after review of the patient's medica l history, current anesthetic/surgi robinson status and plan, according to the Provider Handoff Checklist. 1516 Stop Name Total IV Lidocaine 80 mg Propofol 200 mg Ondansetron 4 mg Dexamethasone 8 mg Succinylcholine 100 mg Lactated Ringers 1,300 mL Agents Name O2 Air N2O Sevoflurane (et) Blood No blood administrations on file. Lines, Drains, and Airways Type Details Placement Removal PIV 04/04/18; 1307; median cubital 04/04/18 1307 by Fran, 04/04/18 1614 by King vein (antecubital fossa), SHAWANDA Allen RN right; bctl-leg-mitwqk catheter system; 22 gauge; 04/04/18; 1614 ETT Mask Ventilation: Easy (1); 04/04/18 1349 by Stephane simmons, 04/04/18 1509 by Smita, ETT Type: Cuffed; ETT Size: Irais E, LIVESTOCK INSPECTOR Irais E, LIVESTOCK INSPECTOR 7.5 mm; Mac Blade: 3; Notes: Asleep, Pre-O2, Cricoid Pressure, Stylette; Attempts: 1; Laryngoscopy Grade: 2; ETT Placement Verified By: Auscultation, Capnometry, Visual; Secured at Teeth: 22 cm documented in this encounter Social History Tobacco [...] encounter OR Notes Anesthesia Postprocedure Evaluation - Jonathan Monroy MD - 04/04/2018 3:20 PM EST [facility] Department of Anesthesiology Post-procedure Note Patient: Jaciel Combs Procedure Summary Date: 04/04/18 [facility] / [facility] Anesthesia Start: 1342 Anesthesia Stop: 1516 Procedures: UPPER EUS- ENDOSCOPIC ULTRASOUND (N/A Trunk) ERCP W/SPHINCTEROTOMY/PAPILLOTOMY (N/A Trunk) ERCP, W PLCMNT ENDOSCOPIC STENT BILIARY OR PANCREATIC DUCT Diagnosis: Pancreatic mass (panc head mass, painless jaundice) Surgeon: Felipe Soto MD Responsible Provider: Jonathan Monroy MD Anesthesia Type: general ASA Status: 2 All Anesthesia Providers: Anesthesiologist: Jonathan Monroy MD LIVESTOCK INSPECTOR: Irais Ordoñez CRNA Most Recent Vitals: 04/04/18 1251 BP: 118/64 Pulse: 64 Resp: 18 Temp: (!) 2.7 ??C (36.9 ??F) SpO2: 100% Pain Patient Location: PACU/SDP Level of Consciousness: Awake and Alert Pain Management: Satisfactory Analgesia PONV: None Cardiovascular Status: Hemodynamically Stable and At Baseline Respiratory Status: Supplemental O2 (NC or FM) and Stable Respiratory Status Postoperative Fluid Status: Intravascular EUvolemia Possible Anesthetic Complications: NONE apparent at time of evaluation Final Primary Anesthesia Type: General (The anesthetic type performed was the same as planned.) Comments: Anesthesia Preprocedure Evaluation - Jonathan Monroy MD - 04/04/2018 1:28 PM EST Pre-Anesthesia Evaluation for: Jaciel Combs a 57 y.o. male. Procedure(s): UPPER EUS- ENDOSCOPIC ULTRASOUND ERCP There are no active problems to display for this patient. No past medical history on file. No past surgical history on file. Social History Tobacco Use ??? Smoking status: Not on file Substance Use Topics ??? Alcohol use: Not on file Social History Substance and Sexual Activity Drug Use Not on file No Known Allergies Medications: MAR and/or home medications have been reviewed. Physical Exam: Most Recent Vitals: 04/04/18 1251 BP: 118/64 Pulse: 64 Resp: 18 Temp: (!) 2.7 ??C (36.9 ??F) SpO2: 100% Body mass index is 22.96 kg/m??. Height: 177.8 cm (5' 10) Weight: 72.6 kg (160 lb) Airway Assessment: Mallampati: III TM distance: >3 FB Neck ROM: full Cardiovascular Assessment: Pulmonary Assessment: Dental Assessment: (+) upper dentures and lower dentures Misc Assessment: IV access: Peripheral line Anesthesia Plan: ASA 2 general, with a(n) intravenous induction 57 y/o man with nor prior history, found to have painless jaundice and pancreatic mass for ERCP. Tolerated anesthesia in the past. Denied GERD, cardiac or pulm disease. Appropriate NPO status. Plan for GA, ETT. Region - Other Informed Consent: Anesthetic plan and risks discussed with patient and spouse. Plan discussed with LIVESTOCK INSPECTOR. PAT Staff Note documented in this encounter Plan of Treatment Upcoming Encounters Date Type Specialty Care Team Description 02/23/2022 Office Visit Hematology and Oncology Gigi Sosa MD [facility] [place] [address] Ebonie Gordon, [address] [place] [address] documented as of this encounter Visit Diagnoses Not on filedocumented in this encounter Administered Medications Inactive Administered Medications - up to 3 most recent administrations Medication Order MAR Action Action Date Dose Rate Site dexamethasone (DECADRON) injection Given 04/04/2018 1:54 PM EST 8 mg PRN, Starting on Sat04/04/18 at 1354, Until Sat04/04/18 at 1516, Anesthesia Intra-op, Routine lactated Ringers infusion New Bag 04/04/2018 2:30 PM EST CONTINUOUS PRN, Starting on Sat04/04/18 at 1343, Until Sat04/04/18 at 1516, Anesthesia Intra-op New Bag 04/04/2018 1:43 PM EST lidocaine (PF) (XYLOCAINE) 100 mg/5 mL (2 %) Given 8 1:47 PM EST 80 mg injection PRN, Starting on Sat04/04/18 at 1347, Until Sat04/04/18 at 1516, Anesthesia Intra-op, Routine ondansetron (ZOFRAN) injection Given 04/04/2018 3:03 PM EST 4 mg PRN, Starting on Sat04/04/18 at 1503, Until Sat04/04/18 at 1516, Anesthesia Intra-op, Routine propofol (DIPRIVAN) 10 mg/mL bolus injection Given 1:47 PM EST 200 mg (Anesthesia) PRN, Starting on Sat04/04/18 at 1347, Until Sat04/04/18 at 1516, Anesthesia Intra-op succinylcholine chloride (Quelicin) inje ction Given 04/04/2018 1:47 PM EST 100 mg PRN, Starting on Sat04/04/18 at 1347, Until Sat04/04/18 at 1516, Anesthesia Intra-op, Routine documented in this encounter Care Teams Paleontology Teacher Relationship Specialty Start Date End Date Corrie Pacheco APRN PCP - General Family Medicine 04/04/18 [facility] [place] [address] documented as of this encounter
--- OUTSIDE RECORDS SUMMARY | 2022-02-23 01:46 | XMS_ITS | Encounter Summary ---
:1960 Author Organization [facility] [place] [address] Care Team Providers Name Role Phone Corrie Pacheco APRN Primary Care Provider Reason for Visit Consultation (Routine) - Specialty Diagnoses / Procedures Referred By Contact Refer red To Contact Radiation Oncology Diagnoses PANCREATIC CA Felipe Soto Kapadia, Nirav S, MD Procedures [facility] [address] [place] [address] D R RADIATION [place] [address] Fax: Referral ID Status Reason Start Date Expiration Date Visits V isits Requested Authorized [id number] 04/04/2018 04/04/2019 1 1 Encounter Details Date Type Department Care Team Description 04/15/2018 Office Visit Radiation Oncology at [facility] [place] [facility] [place] pancreas [address] [place] [address] [phone] (Wo rk) Social History Tobacco Use Types Packs/Day Years Used Date Never Smoker Smokeless Tobacco: Never Used Alcohol Habits Answer Date Recorded How often [...] documented as of this encounter Progress Notes Jas Elizabeth MD - 04/15/2018 10:00 AM EST Radiation Oncology Consult Note Jas Elizabeth MD [facility] Reason for Consultation: Localized pancreas cancer Cancer Staging Malignant neoplasm of head of pancreas Staging form: Exocrine Pancreas, AJCC 8th Edition - Clinical: Stage IA (cT1, cN0, cM0) - Signed by Jas Elizabeth MD on 04/15/2018 Referring Physician / Service: Dr. Soto Treatment Team: Dr. Collazo (Surg/Onc) Dr. Sosa (Med/Onc) Jaciel Combs is a 57 y.o. male diagnosed with localized pancreas cancer in the setting of painless jaundice. We reviewed his case earlier this morning, at the [facility] [place]. Recommendations are pasted below: Upfront surgery, followed by chemotherapy +/- radiation (the latter to be determined pending surgical pathology findings of margins or dayanara metastasis). Afterwards, I visited with him briefly today at multidisciplinary pancreas clinic to provide an overview of the role of radiation therapy in resectable pancreas cancer. I focused my discussion on the timing and logistics of radiotherapy for pancreas cancer, as well as the anticipated acute toxicities.We discussed that staging will soon be completed by Dr. Collazo with a laparscopic assessment for peritoneal and/or hepatic metastases, in addition to baseline CA 19-[address] Sosa will discuss adjuvant chemotherapy regimens, consisting of either mFOLFIRNOX or Gemcitabine-abraxane. Either regimen would be delivered by Dr. Sosa closer to the patient's [facility]. ? Time Attestation: At least 15 minutes of this 30 minute visit was spent with the patient [id number] reviewing his interval medical history and answering questions related to his pancreas cancer. documented in this encounter Plan of Treatment Upcoming Encounters Date Type Specialty Care Team Description 02/23/2022 Office Visit Hematology and Oncology Gigi Sosa MD [facility] [place] [address] [address] [place] [address] documented as of this encounter Procedures Procedure Name Priority Date/Time Associated Diagnosis Comme nts LAB SCAN 03/31/2018 12:00 AM Results for this EST procedure are i n the results section . documented in this encounter Results SCAN DOC: LAB (03/31/2018 12:00 AM EST) Narrative 03/31/2018 12:00 AM EST This result has an attachment that is no t available. Ordered by an unspecified provider. Scanning Provider MEDIA MGR SCAN EXT ORDR/RSLT documented in this encounter Visit Diagnoses Diagnosis Malignant neoplasm of head of pancreas documented in this encounter Care Teams Chronic Specialist Relationship Specialty Start Date End Date Corrie Pacheco APRN PCP - General Family Medicine 04/04/18 [place] [address] documented as of this encounter
--- OUTSIDE RECORDS SUMMARY | 2022-02-23 01:46 | XMS_ITS | Encounter Summary ---
:1960 Author Organization [place] [address] Care Team Providers Name Role Phone Corrie Pacheco APRN Primary Care Provider Reason for Visit Auth/Cert Specialty Diagnoses / Procedures Referred By Contact Refer red To Contact Diagnoses Disease of pancreas, unspecified panc head mass Procedures PRO ENDOSCOPIC US EXAM, ESOPH UPPER EUS- ENDOSCOPIC ULTRASOUND Referral ID Status Reason Start Date Expiration Date Visits Requ ested Visits Authorized [id number] 1 1 Encounter Details Date Type Department Care Team Description 04/04/2018 Surgery Gastroenterology at [facility] Felipe Soto UPPER EUS- ENDOSCOPIC [facility] [place] [address] [facility] [phone] DR GASTROENTEROLOGY [place], [place] [address] Social History Tobacco Use Types [...] Sign Reading Time Taken Comments Blood Pressure 118/64 04/04/2018 12:51 PM EST Pulse 64 04/04/2018 12:51 PM EST Temperature 2.7 ??C (36.9 ??F) 04/04/2018 12:51 PM EST Respiratory Rate 18 04/04/2018 12:51 PM EST Oxygen Saturation 100% 04/04/2018 12:51 PM EST Inhaled Oxygen Concentration - - Weight 72.6 kg (160 lb) 04/04/2018 12:51 PM EST Height 177.8 cm (5' 10) 04/04/2018 12:51 PM EST Body Mass Index 22.96 04/04/2018 12:51 PM EST documented in this encounter Discharge Instructions Discharge InstructionsPraful Sher RN - 04/04/2018 3:18 PM EST Please call [phone] before 8pm Mon-Fri with problems, questions or concerns. If you call after 8pm or on weekends, call the Hospital at [phone] and ask to speak to the Software Sales Manager recruiting operations consultant and the circular shear operator will contact that person for you. AttachmentsThe following attachments cannot be sent through Care Everywhere.ERCP (ENDOSCOPIC RETROGRADE CHOLANGIOPANCREATOGRAM): POST-OP (UKRAINIAN)documented in this encounter H&P Notes Simon Kong MD - 04/04/2018 12:56 PM EST PROBLEM LIST There is no problem list on file for this patient. HISTORY OF PRESENT ILLNESS Jaciel Combs is a 57 y.o. man who presents for endoscopic evaluation and treatment of a likely pancreatic head or ampullary mass causing pancreas and bile duct obstruction. MEDICATIONS No current facility-administered medications on file prior to encounter. No current outpatient medications on file prior to encounter. PHYSICAL EXAM: Blood pressure 118/64, pulse 64, temperature (!) 2.7 ??C (36.9 ??F), resp. rate 18, height 177.8 cm (5' 10), weight 72.6 kg (160 lb), SpO2 100 %. GEN: Alert, cooperative. Pleasant. [...] of the procedure. documented in this encounter Plan of Treatment Upcoming Encounters Date Type Specialty Care Team Description 02/23/2022 Office Visit Hematology and Oncology Gigi Sosa MD [facility] [place] [address] Ebonie Gordon, [address] [place] [address] documented as of this encounter Procedures Procedure Name Priority Date/Time Associated Comments Diagnosis NON-CHINESE MEDICINE PRACTITIONER FINAL REPORT Routine 04/04/2018 5:16 PM R esults for this EST procedure are i n the results section. XR ERCP Routine 04/04/2018 3:20 PM Results f or this EST procedure are i n the results section. CYTOPATHOLOGY Routine 04/04/2018 2:01 PM Results for this NON-GYNECOLOGICAL EST procedure are in the results section. ERCP, W PLCMNT 04/04/2018 1:43 PM Pancreatic mass ENDOSCOPIC STENT EST BILIARY OR PANCREATIC DUCT ERCP 04/04/2018 1:43 PM Pancreatic mass W/SPHINCTEROTOMY/PAPIL EST LOTOMY UPPER EUS- ENDOSCOPIC 04/04/2018 1:43 PM Pancreatic ma ss ULTRASOUND EST UPPER EUS-ENDOSCOPIC Routine 04/04/2018 1:38 PM R esults for this ULTRASOUND EST procedure are i n the results section. ERCP Routine 04/04/2018 1:37 PM Results f or this EST procedure are i n the results section. documented in this encounter Results Non-Manufacturing Coordinator Final Report (04/04/2018 5:16 PM EST) Component Value Ref Test Analysis Performed At [facility] Range Method Time Signature Non-Manufacturing Coordinator [id number] ? Location: ; [facility] Final Report [place] The signing pathologist has (i) examined the relevant preparation(s) for the [facility] specimen(s) and (ii) rendered or confirmed the diagnosis(es) . [facility] . ? No n-Manufacturing Coordinator Final DIAGNOSIS Positive for Malignancy Electronically signed by: ??Leeroy JENKINS, Marleen Verified: ??04/10/2018 ?Pathologist Performed at: ??-[facility] Dept. of Pathology, [place], [place] DISCUSSION Pancreas, head (EUS-guided FNA): C arcinoma with acinar and ductal differentiation (see note) . Note: The lesional cells are immunoreactive for Trypsin, CK7, CK19, MUC1 (focal) and monoclonal CEA (focal); they are negative for synaptophysin and may-catenin (negative for nuclear stain ing). SMAD4 expression is retained in lesional cells. 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 Dr. Hernandez has kindly r eviewed the case and concurs with the above diagnosis. --- Immunohistochemistry Studies --- Interpretation: See note. ? Immunohistochemical a ssays were performed (on paraffin-embedded cell block sections fixed in 10% neutral buffered formalin for 6-72 ho urs) using the polymer technique with appr opriate controls. The cell block sections are studied for ??Trypsin, CK7, CK19, M UC1 , monoclonal CEA , synaptophysin, may-catenin and SMAD4 ??. These immunohistochemical st udies provide ancillary information and are used only in conjunction with standard diagnostic procedures. CLINICAL INFORMATION Specimen Source : Pancreas, head (EUS-guided FNA, assisted) Pertinent Clinical Data and Significant Therapy: Pancreas head mass - worrisome for adenocarcinoma Clinical Impression: Panc adeno Pertinent Radiologic Findings: (not provided) Gross Description: Received in Formalin approxi mately 60 mL total volume of clear, pink fluid, with clots. Total Preparation: Diff-Quik 2; Pap Stain 2; Cell Block 1. Fine Needle Aspiration Immediate Assessment: Evaluation Episode #1 (1 slide): Inadequate for final diagnosis. Rare clusters of atypical cells. . CLINICAL INFORMATION Evaluation Episode #2 (1 slide): Adequate for final diagnosis. Abundant crowded groups of epithelial cells. Immediate Assessment by: ?? Stalin Peterson MD, PhD . Note: The above attending cytopathologist personally exami tre the Immediate Assessment slides and rendered the Imme diate Assessment. Such assessments are preliminary; see Diagnosis and Discussion for final interpr etation. Specimen (Source) Anatomical Collection Method Collection Time Re ceived Time Location / / Volume Laterality 04/04/2018 5:16 PM EST Felipe Soto MD PATHOLOGY/CYTOLOGY ORDERABLE S Performing Organization Address City/State/[place] [address] XR ERCP (04/04/2018 3:20 PM EST) Specimen (Source) Anatomical Location Collection Method / Collectio n Time Received Time / Laterality Volume Narrative RAD - 04/04/2018 3:20 PM EST See PACS for result report. Felipe Soto MD IMG FILM LIBRARY ORDERABLES Performing Organization Address City/State/ZIP Code Phon e Number [place], [place] Cytopathology Non-Gynecological (04/04/2018 2:01 PM EST) Specimen Anatomical Collection Method Collection Time Receive d Time (Source) Location / / Volume Laterality AP Specimen 04/04/2018 2:01 PM 04/04/201 8 2:01 EST PM EST Narrative [facility] - 04/04/2018 2:01 PM EST Specimen requisition ordered. ??Separate Pathology report to follow Felipe Soto MD PATHOLOGY/CYTOLOGY ORDERABLE S Performing Organization Address City/State/[place] [address] UPPER EUS-ENDOSCOPIC ULTRASOUND (04/04/2018 1:38 PM EST) Component Value Ref Test Analysis Performed At [facility] Range Method Time Signature UPPER [facility] ENDOSCOPIC Endoscopy ULTRASOUND _ Procedure Date: 04/04/2018 1:38 PM ? Patient Name: Jaciel Combs ? Date of : 1960 ? Age: 57 ? Order #: [id number] ? Instrument Name: [id number] ? Procedure: ? Upper EUS Indications: ? Suspected mass in pancreas on CT sc an Providers: ? Felipe Soto MD, Simon Kong , ? Olga Steven RN, Justino Alcala MD: ?Pacheco Quiros MD Medicines: ? General Anesthesia Complications: ? No immediate complications. Procedure: ? Pre-Anesthesia Assessment: ? - Prior to the procedure, a H istory ? and Physical was performed, a nd ? patient medications and aller gies ? were reviewed. The patient is ? competent. The risks and bene fits of ? the procedure and the sedatio n ? options and risks were discus sed with ? the patient. All questions we re ? answered and informed consent was ? obtained. Patient identificat ion and ? proposed procedure were verif ied by ? the physician in the pre-proc edure ? area. Mental Status Examinati on: ? alert and oriented. Airway ? Examination: normal oropharyn geal ? airway and neck mobility. Res piratory ? Examination: clear to auscult ation. ? CV Examination: normal. Proph ylactic ? Antibiotics: The patient does not ? require prophylactic antibiot ics. ? Prior Anticoagulants: The pat ient has ? taken no previous anticoagula nt or ? antiplatelet agents. ASA Grad e ? Assessment: II - A patient wi th mild ? systemic disease. After revie wing the ? risks and benefits, the patie nt was ? deemed in satisfactory condit ion to ? undergo the procedure. The an esthesia ? plan was to use general anest hesia. ? Immediately prior to administ ration ? of medications, the patient w as ? re-assessed for adequacy to r eceive ? sedatives. The heart rate, ? respiratory rate, oxygen satu rations, ? blood pressure, adequacy of p ulmonary ? ventilation, and response to care ? were monitored throughout the ? procedure. The physical statu s of the ? patient was re-assessed after the ? procedure. ? The procedure, indications, b enefits, ? risks and alternatives were e xplained ? to the patient. Specifically ? discussed were potential ? complications including, but not ? limited to, bleeding, perfora tion, ? infection, missing a cancer, and ? adverse medication reactions. The ? Endosonoscope was introduced through ? the mouth, and advanced to th e third ? part of duodenum. The upper E US was ? accomplished without difficul ty. The ? patient tolerated the procedu re well. ? Findings: ? Endoscopic Findings: : ? The examined esophagus was endoscopically normal. ? The entire examined stomach was endoscopically normal . ? The examined duodenum was endoscopically normal with ? the exception of the edema in the second portion of ? the duodenum consistent with likely edema from tumor ? compression ? Endosonographic Findings: : ? There was no sign of significant endosonographic ? abnormality in the esophagus, stomach, duodenum or ? celiac axis. ? There was no sign of significant endosonographic ? abnormality in the ampulla. However the distal CBD ? and PD were obstructed by the pancreatic head mass. ? There was no sign of significant endosonographic ? abnormality in the common bile duct except diffuse ? dilation to 12 mm. ? There was no sign of significant endosonographic ? abnormality in the left lobe of the liver with the ? exception of dilated intrahepatic ducts. There was no ? evidence of liver mass. ? There was a 21 x 21 mm mass in the lateral pancreatic ? head just proximal to the ampulla. It did not involve ? any blood vessels. The mass was hypoechoic and caused ? upstream dilitation of both the CBD and PD. Fine ? needle aspiration for cytology was performed. Color ? Doppler imaging was utilized prior to needle puncture ? to confirm a lack of significant vascular structures ? within the needle path. Five passes were made with ? the 25 gauge needle using a transduodenal approach. A ? stylet was used. A superintendent maintenance was present and ? performed a preliminary cytologic examination. The ? cellularity of the specimen was adequate. Final ? cytology results are pending. ? No lymphadenopathy seen. ? Moderate Sedation: ? Not applicable - See Anesthesia documentation Impression: ?- 21 x 21 mm mass in the lateral ? pancreatic head s/p FNA. The mass ? does not involve the vasculat ure Recommendation: ?- Await cytology results ? - Proceed with ERCP now for b iliary ? decompression ? Attending Participation: ? I personally performed the entire procedure. ? Felipe Soto MD 04/04/2018 2:30:08 PM This report has been signed electronically. Number of Addenda: 0 Note Initiated On: 04/04/2018 1:38 PM Specimen (Source) Anatomical Collection Method Collection Time Re ceived Time Location / / Volume Laterality 04/04/2018 1:38 PM EST Pacheco Quiros MD GENERAL SURGICAL ORDERABLES Performing Organization Address City/State/ZIP Code Phon e Number [facility] ERCP (04/04/2018 1:37 PM EST) [facility] gist Method Time Signature ERCP [facility] Endoscopy Procedure Date: 04/04/2018 1:37 PM ? Patient Name: Jaciel Combs ? Date of : 1960 ? Age: 57 ? Order #: [id number] ? Instrument Name: [id number] ? Procedure: ? ERCP Indications: ? Jaundice Providers: ? Felipe Soto MD, Simon Kong , ? Olga Steven RN, Justino Alcala MD: ?Pacheco Quiros MD Medicines: ? General Anesthesia; Indomethacin 1 00 ? mg [place] Complications: ? No immediate complications. Procedure: ? Pre-Anesthesia Assessment: ? - Prior to the procedure, a H istory ? and Physical was performed, a nd ? patient medications and aller gies ? were reviewed. The patient is ? competent. The risks and bene fits of ? the procedure and the sedatio n ? options and risks were discus sed with ? the patient. All questions we re ? answered and informed consent was ? obtained. Patient identificat ion and ? proposed procedure were verif ied by ? the physician in the pre-proc edure ? area. Mental Status Examinati on: ? alert and oriented. Airway ? Examination: normal oropharyn geal ? airway and neck mobility. Res piratory ? Examination: clear to auscult ation. ? CV Examination: normal. Proph ylactic ? Antibiotics: The patient does not ? require prophylactic antibiot ics. ? Prior Anticoagulants: The pat ient has ? taken no previous anticoagula nt or ? antiplatelet agents. ASA Grad e ? Assessment: II - A patient wi th mild ? systemic disease. After revie wing the ? risks and benefits, the patie nt was ? deemed in satisfactory condit ion to ? undergo the procedure. The an esthesia ? plan was to use general anest hesia. ? Immediately prior to administ ration ? of medications, the patient w as ? re-assessed for adequacy to r eceive ? sedatives. The heart rate, ? respiratory rate, oxygen satu rations, ? blood pressure, adequacy of p ulmonary ? ventilation, and response to care ? were monitored throughout the ? procedure. The physical statu s of the ? patient was re-assessed after the ? procedure. ? The procedure, indications, b enefits, ? risks and alternatives were e xplained ? to the patient. Specifically ? discussed were potential ? complications including, but not ? limited to, bleeding, perfora tion, ? infection, pancreatitis, miss ing a ? cancer, and adverse medicatio n ? reactions. The Duodenoscope w as ? introduced through the mouth, and ? advanced to the duodenum wher e it was ? used to inject contrast into and used ? to inject contrast into the b ile ? duct. The ERCP was accomplish ed ? without difficulty. The patie nt ? tolerated the procedure well. ? Findings: ? The hockey scout film was normal. The esophagus was ? successfully intubated under direct vision. The scope ? was advanced to a normal major papilla in the ? descending duodenum without detailed examination of ? the pharynx, larynx and associated structures, and ? upper GI tract. The upper GI tract was grossly ? normal. Initially the PD was cannulated with the 25 ? Visiglide wire. A 5 Fr x 5 cm Hung PD stent was ? placed into the duct. The bile duct was then deeply ? cannulated with the short-nosed traction ? sphincterotome using a 35 Dreamwire and advanced to ? the intrahepatic ducts. Contrast was injected. ? Cholangiogram revealed a dilated CBD to 12 mm with ? intrahepatic ductal dilitation. A 10 mm biliary ? sphincterotomy was made with a sphincterotome using ? ERBE electrocautery. There was no post-sphincterotomy ? bleeding. Next a 10 mm x 60 mm uncovered metal ? Wallflex stent was placed into the CBD. Bile flowed ? from the duct following placement. ? Moderate Sedation: ? 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 60 mm uncovered WallFlex sten t Recommendation: ?- Await cytology results ? Attending Participation: ? I was present and participated during the entire ? procedure, including non-diaz portions. ? Felipe Soto MD 04/04/2018 3:08:52 PM This report has been signed electronically. Number of Addenda: 0 Note Initiated On: 04/04/2018 1:37 PM Specimen (Source) Anatomical Collection Method Collection Time Re ceived Time Location / / Volume Laterality 04/04/2018 1:37 PM EST Pacheco Quiros MD GENERAL SURGICAL ORDERABLES Performing Organization Address City/State/ZIP Code Phon e Number [facility] documented in this encounter Visit Diagnoses Diagnosis Pancreatic mass Unspecified disease of pancreas documented in this encounter Administered Medications Inactive Administered Medications - up to 3 most recent administrations Medication Order MAR Action Action Date Dose Rate Site indomethacin (INDOCIN) suppository Given 04/04/2018 2:34 PM EST 100 mg ONCE PRN, Starting on 04/04/18 at 1434, Until Sat04/04/18 at 1635, Intra-Operative (Intra-Procedure), Routine documented in this encounter Active and Recently Administered Medications Times are shown in EST. PRN Medication Order 04/02/2018 04/03/2018 04/04/2018 indomethacin (INDOCIN) suppository (CANCELED) 1434 (Given - Provider: Olga Steven RN) ONCE PRN, Starting Sat04/04/18 at 1434, Until 04/04/18 at 1635, Intra- Operative (Intra-Procedure), Routine documented in this encounter Care Teams Quality Improvement Coordinator Relationship Specialty Start Date End Date Corrie Pacheco APRN PCP - General Family Medicine 04/04/18 [place] [address] documented as of this encounter
--- OUTSIDE RECORDS SUMMARY | 2022-02-23 01:46 | XMS_ITS | Encounter Summary ---
:1960 Author Organization [facility] [place] [address] Care Team Providers Name Role Phone Corrie Pacheco APRN Primary Care Provider Encounter Details Date Type Department Care Team Description 04/04/2018 Orders Only Gastroenterology at [facility] Reena Bear [facility] [place] [address] Social History Tobacco Use Types Packs/Day [...] Sosa MD [facility] [place] [address] Ebonie Gordon APRN [address] [place] [address] DR MEDICAL ONCOLOGY [place], [place] [id number] documented as of this encounter Visit Diagnoses Not on filedocumented in this encounter Care Teams Prison Keeper Relationship Specialty Start Date End Date Corrie Pacheco APRN PCP - General Family Medicine 04/04/[address] [place], [place] [id number] documented as of this encounter
--- OUTSIDE RECORDS SUMMARY | 2022-02-23 01:46 | XMS_ITS | Encounter Summary ---
:1960 Author Organization [facility] [place] [address] Care Team Providers Name Role Phone Corrie Pacheco APRN Primary Care Provider Reason for Visit Auth/Cert Specialty Diagnoses / Procedures Referred By Contact Refer red To Contact Diagnoses Disease of pancreas, unspecified panc head mass Procedures PRO ENDOSCOPIC US EXAM, ESOPH UPPER EUS- ENDOSCOPIC ULTRASOUND Referral ID Status Reason Start Date Expiration Date Visits Requ ested Visits Authorized [id number] 1 1 Encounter Details Date Type Department Care Team Description 04/04/2018 Hospital Encounter Gastroenterology at [facility] Felipe Soto [facility] [place] [address] [facility] [phone] [place], [place] [address] Social History Tobacco Use Types [...] Sign Reading Time Taken Comments Blood Pressure 133/66 04/04/2018 3:30 PM EST Pulse 64 04/04/2018 12:51 PM EST Temperature 2.7 ??C (36.9 ??F) 04/04/2018 12:51 PM EST Respiratory Rate 18 04/04/2018 12:51 PM EST Oxygen Saturation 100% 04/04/2018 3:35 PM EST Inhaled Oxygen Concentration - - Weight 72.6 kg (160 lb) 04/04/2018 12:51 PM EST Height 177.8 cm (5' 10) 04/04/2018 12:51 PM EST Body Mass Index 22.96 04/04/2018 12:51 PM EST documented in this encounter Discharge Instructions Discharge InstructionsPraful Sher RN - 04/04/2018 3:18 PM EST Please call [phone] before 8pm Mon-Fri with problems, questions or concerns. If you call after 8pm or on weekends, call the Hospital at [phone] and ask to speak to the Marine Equipment Engineer marketing communications manager and the scoring machine operator will contact that person for you. AttachmentsThe following attachments cannot be sent through Care Everywhere.ERCP (ENDOSCOPIC RETROGRADE CHOLANGIOPANCREATOGRAM): POST-OP (OCCITAN)documented in this encounter H&P Notes Simon Kong [...] Visit Hematology and Oncology Gigi Sosa MD [facility] [place] [address] Ebonie Gordon, [address] [place] [address] documented as of this encounter Procedures Procedure Name Priority Date/Time Associated Comments Diagnosis NON-GLUING PRESSMAN FINAL REPORT Routine 04/04/2018 5:16 PM R [...] results section. documented in this encounter Results Non-Pit Shovel Operator Final Report (04/04/2018 5:16 PM EST) Component Value Ref Test Analysis Performed At [facility] Range Method Time Signature Non-Pit Shovel Operator [id number] ? Location: ; [facility]; [facility] Final Report [place] The signing pathologist has (i) examined the relevant preparation(s) for the [facility] specimen(s) and (ii) rendered or confirmed the diagnosis(es) . H[facility]PITAL [facility] . ? No n-Pit Shovel Operator Final DIAGNOSIS Positive for Malignancy Electronically signed by: ??Leeroy JENKINS, Marleen Verified: ??04/10/2018 ?Pathologist Performed at: ??-[facility] Dept. of Pathology, [place], [place] DISCUSSION Pancreas, head (EUS-guided FNA): C [...] possibility of a mixed acinar-ductal carcinoma. Dr. Suriawinata has kindly r eviewed the case and [...] Organization Address City/State/[place] [address] XR ERCP (04/04/2018 3:20 PM EST) Specimen (Source) Anatomical Location Collection Method / Collectio n Time Received Time / Laterality Volume Narrative RAD - 04/04/2018 3:20 PM EST See PACS for result report. Felipe Soto MD IMG FILM LIBRARY ORDERABLES Performing Organization Address City/State/ZIP Code Phon e Number [place], [place] Cytopathology Non-Gynecological (04/04/2018 2:01 PM EST) Specimen Anatomical Collection Method Collection Time Receive d Time (Source) Location / / Volume Laterality AP Specimen 04/04/2018 2:01 PM 04/04/201 8 2:01 EST PM EST Narrative [facility] - 04/04/2018 2:01 PM EST Specimen requisition ordered. ??Separate Pathology report to follow Felipe Soto MD PATHOLOGY/CYTOLOGY ORDERABLE S Performing Organization Address City/State/[place] [address] UPPER EUS-ENDOSCOPIC ULTRASOUND (04/04/2018 1:38 PM EST) Component Value Ref Test Analysis Performed At [facility] Method Time Signature UPPER [facility] PROVATION ENDOSCOPIC Endoscopy ULTRASOUND _ Procedure Date: 04/04/2018 1:38 PM ? Patient Name: Jaciel Combs ? Date of : 1960 ? Age: 57 ? Order #: [id number] ? Instrument Name: [id number] ? Procedure: ? Upper EUS Indications: ? [...] approach. A ? stylet was used. A welder journeyman was present and ? performed a preliminary [...] Number PROVATION ERCP (04/04/2018 1:37 PM EST) [facility] gist Method Time Signature ERCP [facility] PROVATION Endoscopy Procedure Date: 04/04/2018 1:37 PM ? Patient Name: Jaciel Combs ? Date of : 1960 ? Age: 57 ? Order #: [id number] ? Instrument Name: [id number] ? Procedure: ? ERCP Indications: ? Jaundice Providers: ? Felipe Soto MD, Simon Kong , ? Olga Steven RN, Justino Alcala MD: ?Pacheco Quiros MD Medicines: ? General Anesthesia; Indomethacin 1 00 ? mg ID Complications: ? No immediate complications. Procedure: ? [...] the procedure well. ? Findings: ? The die cutter diamond film was normal. The esophagus was ? [...] Diagnoses Not on filedocumented in this encounter Active and Recently Administered Medications Times are shown in EST. PRN Medication Order 04/02/2018 04/03/2018 04/04/2018 indomethacin (INDOCIN) suppository (CANCELED) 1434 (Given - Provider: Olga Steven RN) ONCE PRN, Starting 04/04/18 at 1434, Until Sat04/04/18 at 1635, Intra- Operative (Intra-Procedure), Routine documented in this encounter Care Teams Materials Planner/Production Planner Relationship Specialty Start Date End Date Corrie Pacheco APRN PCP - General Family Medicine 04/04/18 [address] [place] [address] documented as of this encounter
--- OUTSIDE RECORDS SUMMARY | 2022-02-23 01:46 | XMS_ITS | Encounter Summary ---
:1960 Author Organization [facility] [place] [address] Care Team Providers Name Role Phone Corrie Pacheco APRN Primary Care Provider Reason for Visit Auth/Cert Specialty Diagnoses / Procedures Referred By Contact Refer red To Contact Diagnoses stent change Procedures PRO ERCP,DIAGNOSTIC ERCP Referral ID Status Reason Start Date Expiration Date Visits Requ ested Visits Authorized [id number] 1 1 Encounter Details Date Type Department Care Team Description 04/16/2018 Hospital Encounter Gastroenterology at [facility] Mahamed Bro, [facility] [place] [address] [facility] [phone] [place] [address] Social History Tobacco Use Types [...] Sign Reading Time Taken Comments Blood Pressure 122/71 04/16/2018 5:25 PM EST Pulse 51 04/16/2018 1:14 PM EST Temperature 36.9 ??C (98.4 ??F) 04/16/2018 1:14 PM EST Respiratory Rate 17 04/16/2018 5:10 PM EST Oxygen Saturation 100% 04/16/2018 5:25 PM EST Inhaled Oxygen Concentration - - Weight - - Height - - Body Mass Index - - documented in this encounter Discharge Instructions Discharge InstructionsBeth Clarke RN - 04/16/2018 4:47 PM EST Please call [phone] before 8pm Mon-Fri with problems, questions or concerns. If you call after 8pm or on weekends, call the Hospital at [phone] and ask to speak to the Cloth Framer contract agent and the overedge machine operator will contact that person for you. AttachmentsThe following attachments cannot be sent through Care Everywhere.ERCP (ENDOSCOPIC RETROGRADE CHOLANGIOPANCREATOGRAM): POST-OP ([place])documented in this encounter Medications at Time of [...] times daily Capsule as needed for Constipation. bgwhsr-ywxoiayg-mraohv Take 1-2 capsules by 270 capsule 3 [...] mL Syringe subcutaneously nightly for 22 days. xxvajt-xklxkqhm-wjjmdf Take 1-3 capsules by 270 capsule 3 [...] to Encounter Medication Sig Dispense Refill ??? uplfrn-mpphihgp-jyhntdq (CREON) 24,000-76,000 -120,000 unit Capsule, Delayed Release(E.C.) [...] Bro MD - 04/16/2018 5:07 PM EST [facility] Procedure Note Patient Name: Jaciel Combs : [id number] MR#: [id number] Case Date: 04/16/2018 Surgeon: Surgeon(s) and Role: * Mahamed Bro MD - Primary * Simon Kong MD - Fellow Preoperative diagnosis: stent change Findings: See Provation Note documented in this encounter Plan of Treatment Upcoming Encounters Date Type Specialty Care Team Description 02/23/2022 Office Visit Hematology and Oncology Gigi Sosa MD [facility] [place] [address] Ebonie Gordon, [address] [address] Pending Results Name Type Priority Associated Diagnoses Date/Ti me XR ERCP Imaging Storage Only Routine 018 3:27 PM EST Scheduled Orders Name Type Priority Associated Diagnoses Order S chedule XR ERCP Imaging Storage Only Routine Once [place] N (for Radiant use) for 1 Occurrenc [...] Component Value Ref Test Analysis Performed At [facility] Range Method Time Signature ERCP [facility] PROVATION Endoscopy Procedure Date: 04/16/2018 3:24 PM ? Patient Name: Jaciel Combs ? Date of : 1960 ? Age: 57 ? Order #: [id number] ? Instrument Name: [id number] ? Procedure: ? ERCP Indications: ? Malignant [...] the physician, t jabari ? nurse, the stitch rubber and e ? quality lab technician. The procedure was ? verified in [...] A biliary stent was visible on the minute clerk film. The ? esophagus was successfully intubated [...] Procedure) documented in this encounter Care Teams Banquet Server Relationship Specialty Start Date End Date Corrie Pacheco APRN PCP - General Family Medicine 04/04/18 [address] [place] [address] documented as of this encounter
--- OUTSIDE RECORDS SUMMARY | 2022-02-23 01:46 | XMS_ITS | Encounter Summary ---
:1960 [place] [address] Care Team Providers Name Role Phone Unavailable Primary Care Provider Unavailable Encounter Details Date Type Department Care Team Description 03/31/2018 Hospital Encounter Radiology Library at Clark Soto, [facility] [place] [address] GASTROENTEROLOGY [phone] [place] [id number] (Wo rk) Social History Tobacco Use Types [...] Sosa MD [facility] [place] [address] [address] [place] [address] documented as of this encounter Procedures Procedure Name Priority Date/Time Associated Diagnosis Comme nts FILM LIBRARY Routine 03/31/2018 7:49 PM Results f or this STORAGE ONLY CT EST procedure ar e in ABDOMEN the results section. documented in this encounter Results Film Library- Storage Only CT Abdomen (03/31/2018 7:49 PM EST) Specimen (Source) Anatomical Location Collection Method / Collectio n Time Received Time / Laterality Volume Narrative RAD - 03/31/2018 7:49 PM EST This exam is for storage only and is aut o-finalizing. Felipe Soto MD IMG FILM LIBRARY ORDERABLES Performing Organization Address City/State/ZIP Code Phon e Number [place], [place] documented in this encounter Visit Diagnoses Not on filedocumented in this encounter
--- OUTSIDE RECORDS SUMMARY | 2022-02-23 01:46 | XMS_ITS | Encounter Summary ---
:1960 Author Organization [facility] [place] [address] Care Team Providers Name Role Phone Corrie Pacheco APRN Primary Care Provider Encounter Details Date Type Department Care Team Description 04/15/2018 Notes Only General Surgery at [facility] [place] [address] Social History Tobacco Use Types Packs/Day [...] documented as of this encounter Progress Notes Melissa Sandoval - 04/15/2018 10:36 AM EST Consent for the [facility] Biobank protocol [id number] titled Total Cancer Care Protocol: Lifetime partnership with patients who have or may be at risk of having cancer. I reviewed with him the rationale for the biobanking protocol study and how there is no physical risk to being in the study as only left over tumor tissue will be used for biobanking. We discussed how there will be no benefit to him/her per se for participating but that his/her participation and that of other patients involved will hopefully allow future cancer discoveries to be advanced. The study will entail molecular and genetic analysis of the left over tumor tissue in addition to demographic, oncologic and clinical data collection. We discussed how by participating in the study that he consents to allowing to be contacted by phone in the future to answer health related questions. The details of the study, length of the study and risks were reviewed by me with the patient. The patient was given adequate time to ask questions, and all questions were answered to his satisfaction. Upon review, the patient verbalized an adequate understanding of the protocol and signed the consentdocument. No study procedures were initiated prior to signing consent. The consent will be scanned into the [facility] medical record. A copy of the signed consent was provided to the patient. The original isgiven to the [employer] Pipeline Construction Inspector to file with the study documentation. documented in this encounter Plan of Treatment Upcoming Encounters Date Type Specialty Care Team Description 02/23/2022 Office Visit Hematology and Oncology Gigi Sosa MD [facility] [place] [address] Ebonie Gordon APRN [address] [place] [address] DR MEDICAL ONCOLOGY [place], [place] [id number] documented as of this encounter Visit Diagnoses Not on filedocumented in this encounter Care Teams Panel Monitor Relationship Specialty Start Date End Date Corrie Pacheco APRN PCP - General Family Medicine 04/04/[address] [facility], [place] [id number] documented as of this encounter
--- OUTSIDE RECORDS SUMMARY | 2022-02-23 01:46 | XMS_ITS | Encounter Summary ---
:1960 Author Organization [facility] [place] [address] Care Team Providers Name Role Phone Corrie Pacheco APRN Primary Care Provider Reason for Referral Consultation (Routine) - Canceled Specialty Diagnoses / Procedures Referred By Contact Refer red To Contact Hematology and Oncology Diagnoses Malignant neoplasm of head of pancreas Gigi Sosa, [facility] Hem On[facility] Off ice [address] [place] [id number] [place] [address] Referral ID Status Reason Start Date Expiration Date Visits V isits Requested Authorized [id number] Canceled Consult, 04/15/2018 04/15/2019 1 1 Test & Treat Reason for Visit Consultation (Routine) - Closed Specialty Diagnoses / Procedures Referred By Contact Refer red To Contact Hematology and Diagnoses pancreatic adenocarcinoma Felipe Soto, [facility] Hem Onc 3k Oncology Procedures consultation and treat [facility] [address] [place] GASTROENTEROLOGY [address] [place] [address] Referral ID Status Reason Start Date Expiration Date Visits Requ ested Visits Authorized [id number] Closed 04/04/2018 04/04/2019 1 1 Encounter Details Date Type Department Care Team Description 04/15/2018 Office Visit Hematology and Gigi Sosa Maligna nt neoplasm of Oncology at [facility] head of pancreas One [facility] [address] [facility] [address] [place], [place] [address] [place] [address] [phone] Social History Tobacco Use Types Packs/Day Years [...] encounter Progress Notes Gigi Sosa MD - 04/15/2018 1:00 PM EST Subjective: Patient ID: Jaciel Combs is a 57 y.o. male. Problem List: 1. Pancreatic cancer, mixed acinar-ductal, resectable A. Presented with jaundice and abdominal pain. [...] and may- catenin (negative for nuclear staining). [id number] is retained in lesional cells. ??Overall, the [...] metastatic disease. The primary tumor appears resectable. HPI Mr. Combs is seen for evaluation and management of pancreatic cancer. The history is summarized above. On presentation today, he is accompanied by his Demi. He is doing fairly well. He remains jaundiced. The urine color is still bright yellow but not coke colored anymore. His bowel habits have beenirregular although better yesterday. The stools remain light in color. His does think that he is less jaundiced and less icteric. The skin remains pruritic and this is the worst symptom that he has. He took benadryl and has used benadryl cream which helps. His appetite is fair. He fills up easilyand is trying to eat small frequent meals. He has lost about 60 # over the past year which was intentional and done through diet change. He cut back on portions and is trying to eat healthy. His weighthad stabilized at about 170# but over the past two weeks he has lost about 18#. He feels weaker thannormal and he tires more easily. 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 He generally walks on a regular basis with this dog but has not been doing that lately. He has pain in his mid abdomen that felt like a weight on his abdomen. This comes and goes. Thishas not worsened and he does need to take anything for it. It may be made worse by eating too much. He does not necessarily notice a lot of gassiness or bloating but may some increase in eructation. Nofevers or chills. 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 HENT: Negative. Respiratory: Negative. Cardiovascular: Negative. Gastrointestinal: Positive for abdominal pain (see above, mild). Genitourinary: Negative. Musculoskeletal: Negative. Skin: Positive for color change (jaundice). Neurological: Negative. Hematological: Negative. Psychiatric/Behavioral: Negative. Objective: [...] affect. His behavior is normal. Vitals reviewed. Recent Results (from the past 24 hour(s)) Carbohydrate Antigen 19-9 Result Value Ref Range CA 19-9 0.7 <=35.0 u/ml Comprehensive metabolic panel (non-fasting) Result Value Ref Range Glucose Lvl 116 65 - 199 mg/dL BUN 21 (H) 10 - 20 mg/dL Creatinine 0.66 (L) 0.80 - 1.50 mg/dL Sodium 137 135 - 145 mmol/L Potassium 4.1 3.5 - 5.0 mmol/L Chloride 97 (L) 98 - 107 mmol/L CO2 26 22 - 31 mmol/L Anion Gap 14 5 - 15 mmol/L Calcium 9.3 8.5 - 10.5 mg/dL Total Protein 6.8 6.1 - 8.0 gm/dL Albumin 3.5 3.2 - 5.2 gm/dL AST 92 (H) 0 - 39 unit/L ALT 82 (H) 0 - 55 unit/L Alk Phos 334 (H) 40 - 120 unit/L Total Bilirubin 26.1 (H) 0.2 - 1.3 mg/dL eGFR 107 >=60 mL/min/1.73 m?? eGFR 124 >=60 mL/min/1.73 m?? Hemogram Result Value Ref Range WBC 9.0 4.0 - 9.5 x10(3)/mcL RBC 4.72 4.58 - 5.54 x10(6)/mcL Hemoglobin 13.9 13.7 - 16.5 gm/dL Hematocrit 38.3 (L) 40.5 - 48.5 % MCV 81.1 (L) 82.9 - 93.1 fL MCH 29.4 27.5 - 32.1 pg MCHC 36.3 (H) 32.0 - 35.7 gm/dL Platelets 336 145 - 357 x10(3)/mcL RDWSD 52.0 (H) 36.0 - 45.0 fL RDWCV 17.8 (H) 11.4 - 13.8 % MPV 10.1 7.6 - 12.9 fL nRBC % Auto 0.0 % nRBC Abs Auto 0.000 0.000 - 0.000 x10(3)/mcL Differential, Automated Result Value Ref Range Neutrophils % 69.3 % Neutr Abs (ANC) 6.25 (H) 1.70 - 6.10 x10(3)/mcL Lymphocytes % 17.4 % Lymphocytes Abs 1.6 0.9 - 3.2 x10(3)/mcL Monocytes % 10.5 % Monocyte Abs 1.0 (H) 0.3 - 0.9 x10(3)/mcL Eosinophils % 0.9 % Eosinophils Abs 0.1 0.0 - 0.4 x10(3)/mcL Basophils % 1.1 % Basophils Abs 0.1 0.0 - 0.1 x10(3)/mcL Immature Gran % 0.80 % Magnolia Gran Abs 0.07 (H) 0.00 - 0.04 x10(3)/mcL Assessment and Plan: Mr. Combs is a 57 yo male seen for evaluation and management of pancreatic cancer. He presented in late 03/[address] was done at [facility] and showed intra and extrahepatic biliary ductal dilatation and question of a mass in the duodenum or head of the pancreas. He was referred to GI at [facility] and on 04/04/18 underwent an ERCP with stent placement and Upper EUS. A mass was seen in the lateral aspect of the head of the pancreas without vascular involvement. There was concern for duodenal invasion. An FNB was performed and the pathology shows carcinoma with acinar and ductal differentiation. A CT c/a/p was performed on 04/04/18 and shows no evidence of distant metastatic disease. The primary tumor is seen along the right lateral border of the pancreatic head and abuts the duodenum. There is no vascular involvement. We discussed his case at GI Tumor Board today, 04/15/18. The primary tumor is considered resectable.We generally approach localized pancreatic cancer with a neoadjuvant approach. However, in his case,the thought of the board was for resection upfront resection followed by consideration of adjuvant therapy. This was for a couple of reasons. As noted above, the histologic type is atypical, with mixedacinar and ductal differentiation and behavior and response to neoadjuvant therapy uncertain. The tumor is resectable now and we would not want to miss the opportunity for resection should the cancer progress on therapy. In addition, resected acinar cell pancreatic cancer generally has a better prognos is than adenocarcinoma (although this is not a pure acinar cell carcinoma). We discussed that we likely would recommend post-operative chemotherapy. Acinar cell cancers are felt to be relatively resistant to gemcitabine therapy and therefore the thought would be for mFolfirinox. We reviewed the schedule of that, need for a mediport, duration of therapy (12 cycles, ie 6 months) and some of the side effects. I will arrange to see him 4-6 weeks post-operatively in [facility] to see how he is recovering, review pathology and discuss timing of therapy. He will meet with our Clinical Ear Machine Operator today and was given a prescription earlier today for creon by Dr. Collazo. During the post-operative period and during the course of his adjuvant therapy, I do not expect thathe will be able to work and we will help with disability paperwork. We will also make a referral for an appt with our Familial Cancer program. Addendum: The labs came back showing a markedly elevated total bili of 26. On 03/31 at [facility], this was 6.9. I don't know what it was the day of the ERCP (04/04), but given the magnitude of the increase,I am concerned that the stent is not functioning. I sent a message to Dr. Soto and he is going toget him in for a repeat ERCP tomorrow. documented in this encounter Plan of Treatment Upcoming Encounters Date Type Specialty Care Team Description 02/23/2022 Office Visit Hematology and Oncology Gigi Sosa MD [facility] [place] [address] Ebonie Gordon APRN [address] [place] [address] [place] [address] Scheduled Referrals Name Type Priority Associated Diagnoses Order S chedule Referral to Outpatient Referral Routine Malignant neoplasm Or dered: Familial Cancer of head of pancreas 04/15 documented as of this encounter Results (ABNORMAL) Comprehensive metabolic panel (non-fasting) (04/15/2018 1:26 PM EST) P athologist Signature Glucose Lvl 116 65 - 199 [facility] mg/dL [facility] Comment: Diabetes: >=200 mg/dL plus symp toms BUN 21 (H) 10 - 20 mg/dL [facility] Creatinine 0.66 (L) 0.80 - 1.50 mg/dL [facility] Sodium 137 135 - 145 mmol/L [facility] Potassium 4.1 3.5 - 5.0 mmol/L [facility] Comment: Please note: ??Patients with WBC >100,00 0 may have falsely elevated Potassium levels. ??For accurate Potassium quantif ication in these patients send serum separator tube (gold top) for subsequent determinations. ??Contact the Clinical Chemistry Laboratory if there are any qu estions. Chloride 97 (L) 98 - 107 mmol/L [facility] CO2 26 22 - 31 mmol/L [facility] Anion Gap 14 5 - 15 mmol/L [facility] Calcium 9.3 8.5 - 10.5 mg/dL [facility] Total Protein 6.8 6.1 - 8.0 gm/dL [facility] Albumin 3.5 3.2 - 5.2 gm/dL [facility] AST 92 (H) 0 - 39 unit/L [facility] ALT 82 (H) 0 - 55 unit/L [facility] Alk Phos 334 (H) 40 - 120 unit/L [facility] Total Bilirubin 26.1 (H) 0.2 - 1.3 mg/dL [facility] Estimated GFR 107 >=60 mL/min/1.73 m?? [facility] Comment: The eGFR was calculated using the CKD-EP I equation. As with all creatinine based estimates of kidney function, eGFR values calculated with the CKD-EPI equation are not accurate in patients wi th acute kidney failure, extremes of body mass or the acutely ill. http://[employer]/DHMCnkf eGFR 124 >=60 mL/min/1.73 m?? [facility] Comment: The eGFR was calculated using the CKD-EP I equation. As with all creatinine based estimates of kidney function, eGFR values calculated with the CKD-EPI equation are not accurate in patients wi th acute kidney failure, extremes of body mass or the acutely ill. http://[employer]/[facility] Specimen Anatomical Collection Method Collection Time Receive d Time (Source) Location / / Volume Laterality Blood specimen 04/15/2018 1:26 PM 018 1:31 (specimen) EST PM EST Resulting Agency Comment Spec In Lab Gigi Sosa MD CHEMISTRY ORDERABLES Performing Organization Address City/State/ZIP Code Phon e Number [place] [phone] documented in this encounter Visit Diagnoses Diagnosis Malignant neoplasm of head of pancreas documented in this encounter Care Teams Flour Broker Relationship Specialty Start Date End Date Corrie Pacheco APRN PCP - General Family Medicine 04/04/[address] [place] [address] documented as of this encounter
--- OUTSIDE RECORDS SUMMARY | 2022-02-23 01:46 | XMS_ITS | Encounter Summary ---
:1960 Author Organization [facility] [place] [address] Care Team Providers Name Role Phone Corrie Pacheco APRN Primary Care Provider Reason for Visit Reason Onset Date Comments Medical Care Coordination 04/11/2018 Encounter Details Date Type Department Care Team Description 04/11/2018 Telephone Hematology and Oncology Irais Ji [facility] [place] [address] Social History Tobacco Use Types Packs/Day [...] this encounter Miscellaneous Notes Telephone Encounter - Irais Ji RN - 04/11/2018 2:19 PM EST [facility] Nurse Navigation Patient Care Plan 04/11/2018 Irais Ji, RN [phone] I spoke with Jaciel Combs by phone today. Jaciel has a new diagnosis of pancreatic cancer. I called him to initiate nurse navigation services and review plan of care for next week. Barrier list: Knowledge deficit , difficulty eating Present during interview: patient only 1. Identified Barriers: Knowledge deficit Patient spoke with Dr. Soto today about his new cancer diagnosis. I explained the plan of care for next week, I explained the tumor board process and his appointments following with each provider toreview the recommended treatment plan. I reviewed who he would be meeting with and the difference between each provider such as the surgeon will discuss surgical options, medical oncologist prescribes chemotherapy, the radiation doctor will discuss radiation treatments, etc...He states his will be with him at the visit. Plan:Patient to meet with multidisciplinary team on Saturday. Encouraged patient to bring a notebook and to write down questions that come up ahead of time. Gave him my contact number so that he may call before then if needed. 2. Difficulty eating Jaciel reports difficulty eating, he has fullness and difficulty keeping foods down. Denies active vomiting. He states his urine and stool are still discoulored but have improved. He continues to have jaundice, again he states it's improving. Plan: Eat small meals and sips of fluids. Meet with multidisciplinary team including tradeshow worker to discuss symptom management and treatment plan. Patient comments or concerns: Patient states he feels like he is in good hands with his [facility] providers and team. He denies social or financial concerns at this time. He has [facility] paperwork that needs completion, he will bring that with him to his visit on Saturday. Amado hopes to get his chemo and radiation in [facility] as that is where he lives. documented in this encounter Plan of Treatment Upcoming Encounters Date Type Specialty Care Team Description 02/23/2022 Office Visit Hematology and Oncology Gigi Sosa MD [facility] [place] [address] Ebonie Gordon APRN [address] [place] [address] DR MEDICAL ONCOLOGY [place], [place] [id number] documented as of this encounter Visit Diagnoses Not on filedocumented in this encounter Care Teams Car Wash Attendant Automatic Relationship Specialty Start Date End Date Corrie Pacheco APRN PCP - General Family Medicine 04/04/[address] [place] [address] [place] [address] documented as of this encounter
--- OUTSIDE RECORDS SUMMARY | 2022-02-23 01:46 | XMS_ITS | Encounter Summary ---
:1960 Author Organization [facility] [place] [address] Care Team Providers Name Role Phone Corrie Pacheco APRN Primary Care Provider Reason for Visit Reason Onset Date Comments Follow-up 04/11/2018 Encounter Details Date Type Department Care Team Description 04/11/2018 Telephone Hematology and Oncology at [facility], Irais [place] [phone] Social History Tobacco Use Types Packs/Day [...] encounter Miscellaneous Notes Telephone Encounter - Irais Mitchell RN - 04/11/2018 4:46 PM EST Patient's Demi called me back, she received my voicemail and was unsure if I spoke with Jaciel or not. I explained I did speak to Jaciel, she said he is overwhelmed and not remembering a lot of the information. We reviewed his appointment plan for Saturday, including the doctors and team members such as surgeons, oncologists and dieticians. Demi states she had breast cancer and was treated with radiation, she is familiar with some of the terminology and treatments. We reviewed directions, where to park and what level his appointments are on. She said Jaciel has not been feeling well since his endoscopy and biopsy procedure last week. She said his appetite has not been good and has is eating very little. She denies vomiting. She said his jaundice has improved, she thought he looked orange last week and now his skin is more of a light yellow. She said he has not had a bowel movement since the procedure either. She is unaware of any abdominalpain. These reported symptoms co-in cide with what Jaciel was describing to me earlier today. I reminded Demi that sometimes people can develop pancreatitis after the procedure he had and to continue to monitor his symptoms. If they get worse, he develops abdominal pain, nausea, vomiting or any worsening symptom to call the on-call number for further instructions. She verbalized agreement. She had no further questions at this time. documented in this encounter Plan of Treatment Upcoming Encounters Date Type Specialty Care Team Description 02/23/2022 Office Visit Hematology and Oncology Gigi Sosa MD [facility] [place] [address] Ebonie Gordon APRN [address] [place] [address] DR MEDICAL ONCOLOGY [place], [place] [id number] documented as of this encounter Visit Diagnoses Not on filedocumented in this encounter Care Teams Supplier Quality Manager Relationship Specialty Start Date End Date Corrie Pacheco APRN PCP - General Family Medicine 04/04/[address] [place], [place] [id number] documented as of this encounter
--- OUTSIDE RECORDS SUMMARY | 2022-02-23 01:46 | XMS_ITS | Encounter Summary ---
:1960 Author Organization [facility] Address [address] [facility] [place] [address] Care Team Providers Name Role Phone Corrie Pacheco APRN Primary Care Provider Reason for Visit Auth/Cert Specialty Diagnoses / Procedures Referred By Contact Refer red To Contact Diagnoses stent change Procedures PRO ERCP,DIAGNOSTIC ERCP Referral ID Status Reason Start Date Expiration Date Visits Requ ested Visits Authorized [id number] 1 1 Encounter Details Date Type Department Care Team Description 04/16/2018 Ancillary Procedure [facility]ology at [facility] Canceled (P-NO One [facility] D rive LONGER NEEDED) [place] [address] Social History Tobacco Use Types Packs/Day [...] Visit Hematology and Oncology Gigi Sosa MD [facility] [place] [address] Ebonie Gordon [address] MEDICAL ONCOLOGY [place], [place] [id number] documented as of this encounter Visit Diagnoses Not on filedocumented in this encounter Care Teams Cycle Repairer Relationship Specialty Start Date End Date Corrie Pacheco APRN PCP - General Family Medicine 04/04/[address] [facility], [place] [address] documented as of this encounter
--- OUTSIDE RECORDS SUMMARY | 2022-02-23 01:46 | XMS_ITS | Encounter Summary ---
:1960 Author Organization [facility] [place] [address] Care Team Providers Name Role Phone Corrie Pacheco APRN Primary Care Provider Encounter Details Date Type Department Care Team Description 04/07/2018 Telephone Gastroenterology at [facility] Felipe Soto, [facility] [place] [address] [facility] [phone] GASTROENTEROLOGY [place], [place] [address] (Wo rk) Social History Tobacco [...] this encounter Miscellaneous Notes Telephone Encounter - Felipe Soto MD - 04/07/2018 10:54 AM EST I called Mr. Combs to let him know about the results of his CT scan - no evidence of metastasis. I will let him know the results of his cytology when back. documented in this encounter Plan of Treatment Upcoming Encounters Date Type Specialty Care Team Description 02/23/2022 Office Visit Hematology and Oncology Gigi Sosa MD [facility] [place] [address] Ebonie Gordon APRN [address] [place] [address] DR MEDICAL ONCOLOGY [place], [place] [id number] documented as of this encounter Visit Diagnoses Not on filedocumented in this encounter Care Teams Plan Manager Relationship Specialty Start Date End Date Corrie Pacheco APRN PCP - General Family Medicine 04/04/[address] [facility], [place] [id number] documented as of this encounter
--- OUTSIDE RECORDS SUMMARY | 2022-02-23 01:46 | XMS_ITS | Encounter Summary ---
:1960 [place] [address] Care Team Providers Name Role Phone Corrie Pacheco APRN Primary Care Provider Reason for Visit Auth/Cert Specialty Diagnoses / Procedures Referred By Contact Refer red To Contact Diagnoses Pancreas cancer PANCREAS CANCER Procedures PRO LAP, DX SURGICAL ABD W/BIOPSY LAPAROSCOPY,SURGICAL,WITH BIOPSY, SINGLE OR MULTIPLE (WRVU 5.44) Referral ID Status Reason Start Date Expiration Date Visits Requ ested Visits Authorized [id number] 1 1 Encounter Details Date Type Department Care Team Description 04/23/2018 Anesthesia Event Outpatient Surgery Roman Drummond MD [facility] [place] [address] Ulman Saeid Corrigan MD [facility] [place] [address] [place] [address] Anesthesia Record Procedure Summary Procedure Name Responsible Anesthesia Start Anesthesia Stop Time Anesthesiologist Time Bhanu TRONCOSO Michael L, MD 04/23/18 1513 04/23/18 16 10 DIAGNOSTIC, ABDOMEN (WRVU 5.14) (N/A Abdomen) Events Date Time Event Comment 04/23/2018 1513 AN Verify 1513 Start 1513 An Start Data 1516 An Induction 1519 An Intubation 1528 Anesthesia Ready 1543 Procedure Start 1547 Quick Note insufflation 1605 Extubation/LMA Out 1610 an stop data 1610 Recovery or ICU Handoff Patient care was transferred to the destination unit staff after review of the patient's medica l history, current anesthetic/surgi robinson status and plan, according to the Provider Handoff Checklist. 1610 Stop 1730 Name Total Midazolam 2 mg fentaNYL 100 mcg IV Lidocaine 30 mg Propofol 250 mg Propofol INF 100.63 mg Ondansetron 8 mg Rocuronium 40 mg ePHEDrine 20 mg ceFAZolin 2 g Glycopyrrolate 0.2 mg Neostigmine 1 mg lactated Ringers infusion 1,000 mL 0 mL Agents Name O2 Air N2O Sevoflurane (et) Blood No blood administrations on file. Lines, Drains, and Airways Type Details Placement Removal PIV Peds 04/23/18 1241 by 04/23/18 1650 Armani Rosa RN Sorrentino, Kathleen V, RN ETT Mask Ventilation: Easy (1); 04/23/18 1519 by Hol man, 04/23/18 1605 by ETT Type: Cuffed, Oral; ETT Liliya P, EMAIL CAMPAIGN SPECIALIST Karla an, Liliya P, EMAIL CAMPAIGN SPECIALIST Size: 7 mm; Mac Blade: 4, 3; Notes: Asleep, Pre-O2, Stylette; Attempts: 2 (1st EMAIL CAMPAIGN SPECIALIST, cuff above cords; 2nd MD Dipti, look and advance tube through cords. ); Laryngoscopy Grade: 2; ETT Placement Verified By: Auscultation, Capnometry, Visual; Secured at Teeth: 24 cm; Inserted by: MD Dipti Incision 04/23/18; 1557; abdomen; 04/23/18 1557 by Shmuel , 01/01/22 1715 by laparoscopic punctures SHAWANDA Aviles D ierdre L (specify); 01/01/22 (LDA cleanup utility RA#[id number]); 1715 (LDA cleanup utility RA#[id number]) documented in this encounter Social History Tobacco [...] encounter OR Notes Anesthesia Postprocedure Evaluation - Andrez Drummond MD - 04/23/2018 5:31 PM EST [facility] Department of Anesthesiology Post-procedure Note Patient: Jaciel Combs Procedure Summary Date: 04/23/18 Room / Location: [address] [facility] Anesthesia Start: 1513 Anesthesia Stop: 1610 Procedure: LAPAROSCOPY, DIAGNOSTIC, ABDOMEN (WRVU 5.14) (N/A Abdomen) Diagnosis: (pancreas cancer) Surgeon: Lázaro Collazo MD Responsible Provider: Andrez Drummond MD Anesthesia Type: general ASA Status: 3 All Anesthesia Providers: Anesthesiologist: Andrez Drummond MD EMAIL CAMPAIGN SPECIALIST: Liliya Mora CRNA Most Recent Vitals: 04/23/18 1700 BP: 124/67 Pulse: 55 Resp: 16 Temp: SpO2: 100% Pain Patient Location: PACU/SDP Level of Consciousness: Awake and Alert Pain Management: Satisfactory Analgesia PONV: None Cardiovascular Status: At Baseline Respiratory Status: At Baseline Postoperative Fluid Status: Intravascular EUvolemia Possible Anesthetic Complications: NONE apparent at time of evaluation Final Primary Anesthesia Type: General (The anesthetic type performed was the same as planned.) Comments: Anesthesia Preprocedure Evaluation - Andrez Drummond MD - 04/22/2018 3:11 PM EST Pre-Anesthesia Evaluation for: Jaciel Combs a 57 y.o. male. Procedure(s): LAPAROSCOPY,SURGICAL,WITH BIOPSY, SINGLE OR MULTIPLE ([facility] Patient Active Problem List Diagnosis ??? Exocrine pancreatic insufficiency ??? Malignant neoplasm of head of pancreas No past medical history on file. Past Surgical History: Procedure Laterality Date ??? PRO ENDOSCOPIC US EXAM, ESOPH N/A 04/04/2018 UPPER EUS- ENDOSCOPIC ULTRASOUND performed by Felipe Soto MD at [facility] ? ? PRO ERCP BILIARY OR PANCREATIC DUCT STENT REMOVAL & EXCHANGE W/DIL&WIRE 04/16/2018 ERCP, W REMOVAL& EXCHANGE STENT, BILIARY/PANCREATIC DUCT performed by Mahamed Bro MD at [facility] END[facility]COPY ??? PRO ERCP STENT PLACEMENT BILIARY OR PANCREATIC DUCT 04/04/2018 ERCP, W PLCMNT ENDOSCOPIC STENT BILIARY OR PANCREATIC DUCT performed by Felipe Soto MD at [facility]COPY ??? PRO ERCP, SPHINCTEROTOMY N/A 04/04/2018 ERCP W/SPHINCTEROTOMY/PAPILLOTOMY performed by Felipe Soto MD at [facility] END[facility]COPY ??? PRO ERCP, W/REMOVAL STONE, ZAHIDA/PANCR DUCTS 04/16/2018 ERCP W/REMOVAL CALCULI/DEBRIS FROM BILARY/PANCREATIC DUCT(S) performed by Mahamed Bro MD at [facility] END[facility]COPY ??? PRO ERCP,DIAGNOSTIC N/A 04/16/2018 ERCP performed by Mahamed Bro MD at [facility] Social History Tobacco Use ??? Smoking status: [...] Assessment: Mallampati: I TM distance: >3 FB Cardiovascular Assessment: cardiovascular exam normal Pulmonary Assessment: pulmonary exam normal Dental Assessment: Misc Assessment: Anesthesia Plan: ASA 3 general, with a(n) intravenous induction Jaciel Combs is a 57 y.o. 71 kg male non- smoker with h/o pancreatic cancer presenting for Procedure(s): LAPAROSCOPY,SURGICAL,WITH BIOPSY, SINGLE OR MULTIPLE (WRVU 5.44) with Dr. Collazo. The patient's past medical history, past surgical history, medications, and allergies were reviewed and notable for GERD (on PPI) and malignant neoplasm of pancreas head now s/p stent placement for treatment of biliary duct obstruction. Tolerated recent GAs without problem, g1v with Mac 3. Good functional capacity. No cardiopulmonary history. Relevant Meds: ??? bxqefk-lygfswbr-eiijcyc ??? omeprazole Labs: hgb 13.9, plt 336, K 4.1, Cr 0.66 Anesthetic Plan: GA with LMA/ETT Standard ASA monitoring Adequate IV access The patient was informed of the risks, benefits and alternatives of anesthesia. These risks included, but were not limited to, post-operative nausea and/or vomiting, pain, sore throat, dental/lip trauma, and other rare but serious complications such as major organ damage, awareness, severe allergic reactions, position-related nerve injuries, and need blood transfusions. All questions sought and answered. Consent was signed and placed in chart. Saeid Jackson MD, Pg# [id number] 04/22/2018 Region - Other Informed Consent: PAT Staff Note documented in this encounter Plan of Treatment Upcoming Encounters Date Type Specialty Care Team Description 02/23/2022 Office Visit Hematology and Oncology Gigi Sosa MD [facility] [place] [address] Ebonie Gordon, PILOT PLANT OPERATOR HELPER [address] [place] [address] [place] [address] documented as of this encounter Visit Diagnoses Not on filedocumented in this encounter Administered Medications Inactive Administered Medications - up to 3 most recent administrations Medication Order MAR Action Action Date Dose Rate Site ceFAZolin (ANCEF) 1g in dextrose 5% Given 04/23/2018 3:28 PM EST 2 g 50mL PRN, Starting on Sat04/23/18 at 1528, Until Sat04/23/18 at 1610, Administer over 30 Minutes, Anesthesia Intra-op ePHEDrine 5 mg/mL multi-dose injection Given 04/23/2018 3:45 PM EST 10 mg PRN, Starting on Sat04/23/18 at 1521, Until Sat04/23/18 at 1610, Anesthesia Intra-op, Routine Given 04/23/2018 3:21 PM EST 10 mg fentaNYL 50 mcg/mL multi-dose injection Given 04/23/2018 3:18 PM EST 50 mcg PRN, Starting on Sat04/23/18 at 1513, Until Sat04/23/18 at 1610, Anesthesia Intra-op, Routine Given 04/23/2018 3:13 PM EST 50 mcg glycopyrrolate (ROBINUL) multi-dose inje ction Given 04/23/2018 3:55 PM EST 0.2 mg PRN, Starting on Sat04/23/18 at 1555, Until Sat04/23/18 at 1610, Anesthesia Intra-op, Routine lidocaine (PF) (XYLOCAINE) 100 mg/5 mL (2 %) Given 8 3:16 PM EST 30 mg injection PRN, Starting on Sat04/23/18 at 1516, Until Sat04/23/18 at 1610, Anesthesia Intra-op, Routine midazolam (PF) (VERSED) multi-dose injec tion Given 04/23/2018 3:14 PM EST 1 mg PRN, Starting on Sat04/23/18 at 1513, Until Sat04/23/18 at 1610, Anesthesia Intra-op, Routine Given 04/23/2018 3:13 PM EST 1 mg neostigmine (BLOXIVERZ) injection Given 04/23/2018 3:55 PM EST 1 mg PRN, Starting on Sat04/23/18 at 1555, Until Sat04/23/18 at 1610, Anesthesia Intra-op, Routine ondansetron (ZOFRAN) injection Given 04/23/2018 3:58 PM EST 4 mg PRN, Starting on Sat04/23/18 at 1528, Until Sat04/23/18 at 1610, Anesthesia Intra-op, Routine Given 04/23/2018 3:28 PM EST 4 mg propofol (DIPRIVAN) 10 mg/mL bolus injection Given 8 3:18 PM EST 50 mg (Anesthesia) PRN, Starting on Sat04/23/18 at 1516, Until Sat04/23/18 at 1610, Anesthesia Intra-op Given 04/23/2018 3:16 PM EST 200 mg propofol (DIPRIVAN) infusion New Bag 04/23/2018 3:29 PM 50 mcg/kg/min 20.8 mL/hr CONTINUOUS PRN, Starting on EST Sat04/23/18 at 1529, Until Sat04/23/18 at 1610, Anesthesia Intra-op, Routine rocuronium (ZEMURON) multi-dose injectio n Given 04/23/2018 3:40 PM EST 10 mg PRN, Starting on Sat04/23/18 at 1516, Until Sat04/23/18 at 1610, Anesthesia Intra-op, Routine Given 04/23/2018 3:16 PM EST 30 mg documented in this encounter Care Teams Croze Cutter Helper Relationship Specialty Start Date End Date Corrie Pacheco APRN PCP - General Family Medicine 04/04/[address] [place] [address] documented as of this encounter
--- OUTSIDE RECORDS SUMMARY | 2022-02-23 01:46 | XMS_ITS | Encounter Summary ---
:1960 Author Organization [facility] [place] [address] Care Team Providers Name Role Phone Corrie Pacheco APRN Primary Care Provider Reason for Visit Auth/Cert Specialty Diagnoses / Procedures Referred By Contact Refer red To Contact Diagnoses stent change Procedures PRO ERCP,DIAGNOSTIC ERCP Referral ID Status Reason Start Date Expiration Date Visits Requ ested Visits Authorized [id number] 1 1 Encounter Details Date Type Department Care Team Description 04/16/2018 Anesthesia Event Gastroenterology at [facility] Sharonda Freeman MD [facility] [place] [address] [facility] Kenisha Leyva CRNA [facility] [place] [address] [place] [address] Anesthesia Record Procedure Summary Procedure Name Responsible Anesthesia Start Time Anesthesia Stop Time Anesthesiologist ERCP (N/A Trunk) Sharonda Freeman MD 04/16/18 1533 1641 Events Date Time Event Comment 04/16/2018 1303 1533 AN Verify 1533 Start 1533 An Start Data 1537 An Induction 1538 An Intubation 1539 Anesthesia Ready 1546 Procedure Start 1640 Extubation/LMA Out 1641 an stop data 1641 Recovery or ICU Handoff Patient care was transferred to the destination unit staff after review of the patient's medica l history, current anesthetic/surgi robinson status and plan, according to the Provider Handoff Checklist. 1641 Stop Name Total IV Lidocaine 80 mg Propofol 200 mg Propofol INF 178 mg ePHEDrine 5 mg Ondansetron 8 mg Succinylcholine 100 mg lactated Ringers infusion 0 mL Agents Name O2 Air N2O Sevoflurane (et) Blood No blood administrations on file. Lines, Drains, and Airways Type Details Placement Removal PIV Peds 04/16/18 1328 by 04/23/18 1244 Shama Hernandez RN Sanabria, Tathy M, RN ETT Mask Ventilation: Not 04/16/18 1538 by Bayron, 04/16/18 1640 by Attempted (0); ETT Type: ARTEMIO Kenny Peter N, CRNA Cuffed; ETT Size: 7 mm; Mac Blade: 3; Notes: Asleep, Pre-O2, Stylette; Attempts: 1; Laryngoscopy Grade: 1; ETT Placement Verified By: Auscultation, Capnometry; Secured at Teeth: 23 cm Trach 04/16/18 1543 by Bayron, 1640 by ARTEMIO Kenny Peter N, CRNA documented in this encounter Social History Tobacco [...] encounter OR Notes Anesthesia Postprocedure Evaluation - Sharonda Freeman MD - 04/16/2018 5:03 PM EST [facility] Department of Anesthesiology Post-procedure Note Patient: Jaciel Combs Procedure Summary Date: 04/16/18 Room / Location: [facility] / [facility] Anesthesia Start: 1533 Anesthesia Stop: 1641 Procedures: ERCP (N/A Trunk) ERCP W/REMOVAL CALCULI/DEBRIS FROM BILARY/PANCREATIC DUCT(S) ERCP, W REMOVAL& EXCHANGE STENT, BILIARY/PANCREATIC DUCT Diagnosis: (stent change) Surgeon: Mahamed Bro MD Responsible Provider: Sharonda Freeman MD Anesthesia Type: general ASA Status: 3 All Anesthesia Providers: Anesthesiologist: Sharonda Freeman MD; Kristi Erickson MD VACUUM DRIER TENDER: Rad Verma CRNA Most Recent Vitals: 04/16/18 1725 BP: 122/71 Pulse: Resp: Temp: SpO2: 100% Pain [facility] Level of Consciousness: Awake and Alert Pain Management: Satisfactory Analgesia PONV: None Cardiovascular Status: At Baseline and Hemodynamically Stable Respiratory Status: At Baseline and Room Air Postoperative Fluid Status: Intravascular EUvolemia Possible Anesthetic Complications: NONE apparent at time of evaluation Final Primary Anesthesia Type: General (The anesthetic type performed was the same as planned.) Comments: SHARONDA FREEMAN MD Anesthesia Preprocedure Evaluation - Kristi Erickson MD - 04/16/2018 10:37 AM EST Pre-Anesthesia Evaluation for: Jaciel Combs a 57 y.o. male. Procedure(s): ERCP Patient Active Problem List Diagnosis ??? Exocrine pancreatic insufficiency ??? Malignant neoplasm of head of pancreas No past medical history on file. Past Surgical History: Procedure Laterality Date ??? PRO ENDOSCOPIC US EXAM, ESOPH N/A 04/04/2018 UPPER EUS- ENDOSCOPIC ULTRASOUND performed by Felipe Soto MD at [facility] ??? PRO ERCP STENT PLACEMENT BILIARY OR PANCREATIC DUCT 04/04/2018 ERCP, W PLCMNT ENDOSCOPIC STENT BILIARY OR PANCREATIC DUCT performed by Felipe Soto MD at [facility] ??? PRO ERCP, SPHINCTEROTOMY N/A 04/04/2018 ERCP W/SPHINCTEROTOMY/PAPILLOTOMY performed by Felipe Soto MD at [facility] Social History Tobacco Use ??? Smoking status: Never Smoker ??? Smokeless tobacco: Never Used Substance Use Topics ??? Alcohol use: Not on file Social History Substance and Sexual Activity Drug Use Not on file No Known Allergies Medications: MAR and/or home medications have been reviewed. Physical Exam: There were no vitals filed for this visit. There is no height or weight on file to calculate BMI. Airway Assessment: Mallampati: III TM distance: >3 FB Neck ROM: full Cardiovascular Assessment: cardiovascular exam normal Pulmonary Assessment: pulmonary exam normal Dental Assessment: (+) upper dentures and lower dentures Misc Assessment: Anesthesia Plan: ASA 3 general, with a(n) intravenous induction Attending Assessment: Patient personally seen and examined. 57yo M with pancreatic mass s/p stent 04/04/18, presenting today for ERCP and stent change. No cardiac or pulmonary problems. No recent URI. Well-controlled GERD on PPI (asymptomatic in preop). Easy mask ventilation, Mac3 Gr2, 1 attempt. No problems with anesthesia in the past. Meds: reviewed, only Creon and Omeprazole NPO status adequate Plan: - standard ASA monitors, PIV - GETA The patient was informed of the risks, benefits and alternatives of anesthesia. These risks included, but were not limited to, post-operative nausea and/or vomiting, pain, sore throat, dental/lip injury, and other rare but serious complications such as cardiac instability/arrest, neurologic event, awareness, severe allergic reactions, position-related nerve injuries, and need blood transfusions. All questions sought and answered. Consent was signed and placed in chart. Kristi Erickson MD 04/16/2018 Region - Other Informed Consent: Anesthetic plan and risks discussed with patient. Plan discussed with VACUUM DRIER TENDER. PAT Staff Note documented in this encounter Plan of Treatment Upcoming Encounters Date Type Specialty Care Team Description 02/23/2022 Office Visit Hematology and Oncology Gigi Sosa MD [facility] [place] [address] Ebonie Gordon APR[address] [place] [address] documented as of this encounter Visit Diagnoses Not on filedocumented in this encounter Administered Medications Inactive Administered Medications - up to 3 most recent administrations Medication Order MAR Action Action Date Dose Rate Site ePHEDrine 5 mg/mL multi-dose Given 04/16/2018 3:54 PM EST 5 mg injection PRN, Starting on Sat04/16/18 at 1554, Until Sat04/16/18 at 1641, Anesthesia Intra-op, Routine lactated Ringers infusion New Bag 04/16/2018 3:33 PM EST 100 mL/hr, Intravenous, CONTINUOUS, Starting on Sat04/16/18 at 1345, Until Sat04/16/18 at 2002, Endoscopy (Day of Procedure) lidocaine (PF) (XYLOCAINE) 100 mg/5 mL (2 %) Given 8 3:37 PM EST 80 mg injection PRN, Starting on Sat04/16/18 at 1537, Until Sat04/16/18 at 1641, Anesthesia Intra-op, Routine ondansetron (ZOFRAN) injection Given 04/16/2018 4:17 PM EST 8 mg PRN, Starting on Sat04/16/18 at 1617, Until Sat04/16/18 at 1641, Anesthesia Intra-op, Routine propofol (DIPRIVAN) 10 mg/mL bolus injection Given 04/2018 3:37 PM EST 200 mg (Anesthesia) PRN, Starting on Sat04/16/18 at 1537, Until Sat04/16/18 at 1641, Anesthesia Intra-op propofol (DIPRIVAN) infusion New Bag 04/16/2018 3:51 PM 50 mcg/kg/min 21.4 mL/hr CONTINUOUS PRN, Starting on EST Sat04/16/18 at 1551, Until Sat04/16/18 at 1641, Anesthesia Intra-op, Routine succinylcholine chloride (Quelicin) inje ction Given 04/16/2018 3:37 PM EST 100 mg PRN, Starting on Sat04/16/18 at 1537, Until Sat04/16/18 at 1641, Anesthesia Intra-op, Routine documented in this encounter Care Teams Faculty Criminal Justice Relationship Specialty Start Date End Date Corrie Pacheco APRN PCP - General Family Medicine 04/04/18 [address] [place] [address] documented as of this encounter
--- OUTSIDE RECORDS SUMMARY | 2022-02-23 01:46 | XMS_ITS | Encounter Summary ---
:1960 Author Organization [facility] [place] [address] Care Team Providers Name Role Phone Corrie Pacheco APRN Primary Care Provider Reason for Visit Auth/Cert Specialty Diagnoses / Procedures Referred By Contact Refer red To Contact Diagnoses Disease of pancreas, unspecified panc head mass Procedures PRO ENDOSCOPIC US EXAM, ESOPH UPPER EUS- ENDOSCOPIC ULTRASOUND Referral ID Status Reason Start Date Expiration Date Visits Requ ested Visits Authorized [id number] 1 1 Encounter Details Date Type Department Care Team Description 04/04/2018 Ancillary Procedure Gastroenterology at [facility] [place] [address] Social History Tobacco Use Types Packs/Day [...] Visit Hematology and Oncology Gigi Sosa MD [facility] [place] [address] Ebonie Gordon APRN [address] [place] [address] DR MEDICAL ONCOLOGY [place], [place] [id number] documented as of this encounter Procedures Procedure Name Priority Date/Time Associated Diagnosis Comme nts XR ERCP Routine 04/04/2018 3:20 PM Results f or this EST procedure are i n the results section . documented in this encounter Results XR ERCP (04/04/2018 3:20 PM EST) Specimen (Source) Anatomical Location Collection Method / Collectio n Time Received Time / Laterality Volume Narrative RAD - 04/04/2018 3:20 PM EST See PACS for result report. Felipe Soto MD IMG FILM LIBRARY ORDERABLES Performing Organization Address City/State/ZIP Code Phon e Number [place], [place] documented in this encounter Visit Diagnoses Not on filedocumented in this encounter Care Teams Casino Games Dealer Relationship Specialty Start Date End Date Corrie Pacheco APRN PCP - General Family Medicine 04/04/[address] [place], [place] [id number] documented as of this encounter
--- OUTSIDE RECORDS SUMMARY | 2022-02-23 01:46 | XMS_ITS | Encounter Summary ---
:1960 Author Organization [facility] [place] [address] Care Team Providers Name Role Phone Unavailable Primary Care Provider Unavailable Encounter Details Date Type Department Care Team Description 04/03/2018 Telephone Gastroenterology at [facility] Rachel Sheldon [facility] [place] [address] Social History Tobacco Use Types Packs/Day Years [...] this encounter Miscellaneous Notes Telephone Encounter - Rachel Sheldon - 04/03/2018 12:56 PM EST Left message for patient to move his procedure to 1:00 on Apr 04. documented in this encounter Plan of Treatment Upcoming Encounters Date Type Specialty Care Team Description 02/23/2022 Office Visit Hematology and Oncology Gigi Sosa MD [facility] [place] [address] Ebonie Gordon APRN [address] [place] [address] [place] [address] documented as of this encounter Visit Diagnoses Not on filedocumented in this encounter
--- OUTSIDE RECORDS SUMMARY | 2022-02-23 01:46 | XMS_ITS | Encounter Summary ---
:1960 Author Organization [facility] [place] [address] Care Team Providers Name Role Phone Corrie Pacheco APRN Primary Care Provider Encounter Details Date Type Department Care Team Description 04/15/2018 Laboratory Appointment Lab 3L [facility] Malignant neoplasm of [facility] [place] [address] Social History Tobacco Use Types [...] MD [facility] [place] [address] Ebonie Gordon, [address] [place] [address] documented as of this encounter Procedures Procedure Name Priority Date/Time Associated Comments Diagnosis HEMOGRAM Routine 04/15/2018 1:26 PM Malignant neoplasm Res ults for this EST of head of pancreas procedur e are in the results section. DIFFERENTIAL, Routine 04/15/2018 1:26 PM Malignant neoplasm Re sults for this AUTOMATED EST of head of pancreas procedur e are in the results section. CARBOHYDRATE ANTIGEN Routine 04/15/2018 1:26 PM Malignant neop lasm Results for this 19-9 EST of head of pancreas procedur e are in the results section. CBC (WITH DIFF) Routine 04/15/2018 1:26 PM Malignant neoplasm EST of head of pancreas COMPREHENSIVE Routine 04/15/2018 1:26 PM Malignant neoplasm Re sults for this METABOLIC PANEL EST of head of pancreas proce dure are in (NON-FASTING) the results section. documented in this encounter Results (ABNORMAL) Differential, Automated (04/15/2018 1:26 PM EST) [facility] gist Method Time Signature Neutrophils % 69.3 % [facility] Neutr Abs (ANC) 6.25 (H) 1.70 - [facility] 6.10 [facility] x10(3)/[facility] L LABORATORY Lymphocytes % 17.4 % [facility] Lymphocytes Abs 1.6 0.9 - 3.2 [facility] x10(3)/[facility] LABORATORY Monocytes % 10.5 % [facility] Monocyte Abs 1.0 (H) 0.3 - 0.9 [facility] x10(3)/[facility] LABORATORY Eosinophils % 0.9 % [facility] Eosinophils Abs 0.1 0.0 - 0.4 [facility] x10(3)/[facility] LABORATORY Basophils % 1.1 % [facility] Basophils Abs 0.1 0.0 - 0.1 [facility] x10(3)/[facility] LABORATORY Immature Gran % 0.80 % [facility] Comment: Immature granulocytes(IG's)percentage an d absolute count will include metamyelocytes, myelocytes, and promyelo cytes. Blood smears from CBCs yielding IG's will be scanned manually for concor dance. If this scan disagrees with the automated IG or if promyelocytes are not ed, a manual differential will be performed. [place] Gran Abs 0.07 (H) 0.00 - 0.04 x10(3)/[facility] LABORATORY Specimen Anatomical Collection Method Collection Time Receive d Time (Source) Location / / Volume Laterality Blood specimen 04/15/2018 1:26 PM 018 1:31 (specimen) EST PM EST Resulting Agency Comment Spec In Lab Gigi Sosa MD HEMATOLOGY ORDERABLES Performing Organization Address City/State/[place] [address] (ABNORMAL) Hemogram (04/15/2018 1:26 PM EST) Analysis Performed At Patho logist Time Signature WBC 9.0 4.0 - 9.5 [facility] x10(3)/[facility] LABORATORY RBC 4.72 4.58 - [facility] 5.54 [facility] x10(6)/[facility] LABORATORY Hemoglobin 13.9 13.7 - [facility] 16.5 gm/dL [facility] Hematocrit 38.3 (L) 40.5 - [facility] 48.5 % [facility] MCV 81.1 (L) 82.9 - KAYY MENDOZACK 93.1 [facility] LABORATORY MCH 29.4 27.5 - KAYY MENDOZACK 32.1 pg [facility] MCHC 36.3 (H) 32.0 - KAYY TREVIZO 35.7 gm/dL [facility] Platelets 336 145 - 357 KAYY [place] x10(3)/[facility] LABORATORY RDWSD 52.0 (H) 36.0 - KAYY TREVIZO 45.0 [facility] LABORATORY RDWCV 17.8 (H) 11.4 - KAYY TREVIZO 13.8 % [facility] MPV 10.1 7.6 - 12.9 KAYY TREVIZO [facility] LABORATORY nRBC % Auto 0.0 % [facility] nRBC Abs Auto 0.000 0.000 - KAYY TREVIZO 0.000 [facility] x10(3)/[facility] LABORATORY Specimen Anatomical Collection Method Collection Time Receive d Time (Source) Location / / Volume Laterality Blood specimen 04/15/2018 1:26 PM 018 1:31 (specimen) EST PM EST Resulting Agency Comment Spec In Lab Gigi Sosa MD HEMATOLOGY ORDERABLES Performing Organization Address City/State/[place] [address] (ABNORMAL) Comprehensive metabolic panel (non-fasting) (04/15/2018 1:26 PM EST) P athologist Signature Glucose Lvl 116 65 - 199 [facility] mg/dL [facility] Comment: Diabetes: >=200 mg/dL plus symp toms BUN 21 (H) 10 - 20 mg/dL [facility] Creatinine 0.66 (L) 0.80 - 1.50 mg/dL [facility] Sodium 137 135 - 145 mmol/L [facility] Potassium 4.1 3.5 - 5.0 mmol/L [facility] Comment: Please note: ??Patients with WBC >100,00 0 may have falsely elevated Potassium levels. ??For accurate Potassium quantif ication in these patients send serum separator tube (gold top) for subsequent determinations. ??Contact the Clinical Chemistry Laboratory if there are any qu estions. Chloride 97 (L) 98 - 107 mmol/L [facility] CO2 26 22 - 31 mmol/L [facility] Anion Gap 14 5 - 15 mmol/L [facility] Calcium 9.3 8.5 - 10.5 mg/dL [facility] Total Protein 6.8 6.1 - 8.0 gm/dL [facility] Albumin 3.5 3.2 - 5.2 gm/dL [facility] AST 92 (H) 0 - 39 unit/L [facility] ALT 82 (H) 0 - 55 unit/L [facility] Alk Phos 334 (H) 40 - 120 unit/L [facility] Total Bilirubin 26.1 (H) 0.2 - 1.3 mg/dL [facility] Estimated GFR 107 >=60 mL/min/1.73 m?? [facility] Comment: The eGFR was calculated using the CKD-EP I equation. As with all creatinine based estimates of kidney function, eGFR values calculated with the CKD-EPI equation are not accurate in patients wi th acute kidney failure, extremes of body mass or the acutely ill. http://[employer]/[facility] PRAGUEnkPlatiza eGFR 124 >=60 mL/min/1.73 m?? [facility] Comment: The eGFR was calculated using the CKD-EP I equation. As with all creatinine based estimates of kidney function, eGFR values calculated with the CKD-EPI equation are not accurate in patients wi th acute kidney failure, extremes of body mass or the acutely ill. http://[employer]/[facility] PRAGUEnkf Specimen Anatomical Collection Method Collection Time Receive d Time (Source) Location / / Volume Laterality Blood specimen 04/15/2018 1:26 PM 018 1:31 (specimen) EST PM EST Resulting Agency Comment Spec In Lab Gigi Sosa MD CHEMISTRY ORDERABLES Performing Organization Address City/State/[place] [address] Carbohydrate Antigen 19-9 (04/15/2018 1:26 PM EST) P athologist Signature CA 19-9 0.7 <=35.0 u/ml [facility] Specimen Anatomical Collection Method Collection Time Receive d Time (Source) Location / / Volume Laterality Blood specimen 04/15/2018 1:26 PM 018 1:31 (specimen) EST PM EST Resulting Agency Comment Spec In Lab Lázaro Collazo MD CHEMISTRY ORDERABLES Performing Organization Address City/State/[place] [address] documented in this encounter Visit Diagnoses Diagnosis Malignant neoplasm of head of pancreas documented in this encounter Care Teams Retail Advertising Executive Relationship Specialty Start Date End Date Corrie Pacheco APRN PCP - General Family Medicine 04/04/18 [place] [address] documented as of this encounter
--- OUTSIDE RECORDS SUMMARY | 2022-02-23 01:46 | XMS_ITS | Encounter Summary ---
:1960 Author Organization [facility] [place] [address] Care Team Providers Name Role Phone Corrie Pacheco APRN Primary Care Provider Reason for Visit Auth/Cert Specialty Diagnoses / Procedures Referred By Contact Refer red To Contact Diagnoses stent change Procedures PRO ERCP,DIAGNOSTIC ERCP Referral ID Status Reason Start Date Expiration Date Visits Requ ested Visits Authorized [id number] 1 1 Encounter Details Date Type Department Care Team Description 04/16/2018 Ancillary Procedure Gastroenterology at [facility] [place] [address] Social History Tobacco Use Types Packs/Day [...] Sosa MD [facility] [place] [address] Ebonie Gordon APRN [address] [place] [address] DR MEDICAL ONCOLOGY [place], [place] [id number] Pending Results Name Type Priority Associated Diagnoses Date/Ti me XR ERCP Imaging Storage Only Routine 018 3:27 PM EST documented as of this encounter Visit Diagnoses Not on filedocumented in this encounter Care Teams Credit Charge Authorizer Relationship Specialty Start Date End Date Corrie Pacheco APRN PCP - General Family Medicine 04/04/18 [address] [place], [place] [address] documented as of this encounter
--- OUTSIDE RECORDS SUMMARY | 2022-02-23 01:46 | XMS_ITS | Encounter Summary ---
:1960 Author Organization [facility] [place] [place] [address] Care Team Providers Name Role Phone Corrie Pacheco APRN Primary Care Provider Encounter Details Date Type Department Care Team Description 04/10/2018 Telephone Gastroenterology at [facility] Felipe Soto, [facility] [place] [address] [facility] [phone] GASTROENTEROLOGY [place], [place] [address] (Wo rk) Social History Tobacco [...] Telephone Encounter - Felipe Soto MD - 04/10/2018 10:20 AM EST I called Mr. Combs today with his FNA results - positive for malignancy - he was not at home so I left him a message to contact me. documented in this encounter Plan of Treatment Upcoming Encounters Date Type Specialty Care Team Description 02/23/2022 Office Visit Hematology and Oncology Gigi Sosa MD [facility] [place] [address] Ebonie Gordon [address] MEDICAL ONCOLOGY [place], [place] [address] documented as of this encounter Visit Diagnoses Not on filedocumented in this encounter Care Teams Lgsw Relationship Specialty Start Date End Date Corrie Pacheco APRN PCP - General Family Medicine 04/04/[address] [facility], [place] [id number] documented as of this encounter
--- OUTSIDE RECORDS SUMMARY | 2022-02-23 01:46 | XMS_ITS | Encounter Summary ---
:1960 Author Organization [facility] [place] [address] Care Team Providers Name Role Phone Corrie Pacheco APRN Primary Care Provider Reason for Visit Consultation (Routine) - Specialty Diagnoses / Procedures Referred By Contact Refer red To Contact Hematology and Diagnoses pancreatic adenocarcinoma Felipe Soto, [facility] Hem Onc 3k Oncology Procedures consultation and treat MD [facility] [address] [place] GASTROENTEROLOGY [address] [place] [address] Referral ID Status Reason Start Date Expiration Date Visits V isits Requested Authorized [id number] 04/04/2018 04/04/2019 1 1 Encounter Details Date Type Department Care Team Description 04/15/2018 Clinical Support Radiation Oncology Kathleen Bangura Ma lignant neoplasm at [facility], [place] [phone] Social History Tobacco Use Types Packs/Day Years [...] encounter Progress Notes Kathleen Bangura, RD - 04/15/2018 12:00 PM EST [facility] Dietitian Initial Consultation Referred by: Multidisciplinary Pancreatic CA Clinic Reason for consultation: Pancreatic CA Mr. Combs is 57 years with newly diagnosed localized pancreatic CA. Appetite: low appetite but has increased only recently increased. Early satiety : yes Challenge sleeping lately due to itchiness, does not like to go to bed with full stomach- Prior to diet was a huge snack karla, dropped sugar, carbs, soda for several months as a challenge at work to lose weight and lost 60 pounds. Last couple of days-starting to turn, woke up hungry this morning--eggs and toast Last night: rice and chicken ( 1/4 breast and 3 spoonful) Looking forward to possibly eating a hamburger at lunch today Nausea: denies Vomiting: denies Taste: no taste disturbances Bowels: moving bowels every other but can be small volume and multiple times a day, I always have to try whereas previously didn't Bloating/gas/post prandial pain: yes Early satiety: yes Chewing: did not assess Swallowing: did not assess Objective: Wt Readings from Last 3 Encounters: 04/15/18 71.2 kg (157 lb) 04/04/18 72.6 kg (160 lb) Weight History: UBW: 231 pounds %UBW: IBW: %IBW: Weight loss%: Lost 60 pounds over the past 7-8 mos by modifying diet, incr activity, 17 pounds sinceThanksgiving or 10% weight loss Kcal needs estimated at: 2130 at 30kcals/Kg Protein needs estimated at: 107 at 1.5g/kg AMBULATORY MEDICATIONS: Reviewed Significant labs: pending Vitamins, herbs, teas, nutritional supplements: as above Food allergies or food avoidances:as above Food intake as compared to normal:as above Activity: physically active prior to diagnosis Social: lives with his and two kyrgyz mays dogs Financial restraints:did not assess Assessment/Plan: Patient has experienced severe recent weight loss. Appetite beginning to increase-is beginning to eat more volume but early satiety persists. +Post prandial discomfort. We discussed strategies to increase kcal intake brad with complaints of early satiety and post prandial discomfort. Enzymes will be prescribed today--discussed dosing and timing. Plan is for him to go directly to surgery vs neoadjuvant--I will call him in another week to check on weight and start of enz ymes. Will scammon bay back to Dr Collazo with my note. Thank you for this consult. documented in this encounter Plan of Treatment Upcoming Encounters Date Type Specialty Care Team Description 02/23/2022 Office Visit Hematology and Oncology Gigi Sosa MD [facility] [place] [address] bEonie Gordon APRN [address] [place] [address] [place] [address] documented as of this encounter Visit Diagnoses Diagnosis Malignant neoplasm of head of pancreas documented in this encounter Care Teams Can Filling And Closing Machine Tender Relationship Specialty Start Date End Date Corrie Pacheco APRN PCP - General Family Medicine 04/04/18 [place] [address] documented as of this encounter
--- OUTSIDE RECORDS SUMMARY | 2022-02-23 01:46 | XMS_ITS | Encounter Summary ---
:1960 Author Organization [facility] [place] [address] Care Team Providers Name Role Phone Corrie Pacheco APRN Primary Care Provider Encounter Details Date Type Department Care Team Description 04/15/2018 Multidisciplinary Care General Surgery at [facility] Collazo Committee [facility] [place] Ton [facility] [address] [place] [address] [place] [address] [phone] Social History Tobacco Use Types Packs/Day Years [...] encounter Progress Notes Lázaro Collazo MD - 04/15/2018 7:39 AM EST GI - Tumor Board Note Date Presented: 04/15/2018 Presenting Physician: Simon Kong MD Diagnosis/Tumor Site: Pancreas cancer Synopsis of History/HPI: Mr. Combs is a 57 year old man from [place], [place]. He presented to [facility] with painless jaundice. His total bilirubin was 6. 03/31/18 CT abdomen and pelvis with oral and IV contrast ([facility]) showed a subtle mass in the HOP withproximal pancreatic and biliary duct obstruction. No SMV/portal vein, ROMA or SMA abutment. The gallbladder was markedly distended with biliary dilation. No metastases. 04/04/[address] Soto -findings reviewed below: There was a 21 x 21 mm mass in the lateral pancreatic head just proximal to the ampulla. It did notinvolve any blood vessels. The mass was hypoechoic and caused upstream dilitation of both the CBD and PD. Fine needle aspiration for cytology was performed- Five passes were made with the 25 gauge needle using a transduodenal approach.?? No lymphadenopathy seen. 04/04/[address] Soto - findings reviewed below: A 5 Fr x 5 cm Hung [...] Bile flowed from the duct following placement. 04/04/18 EUS FNA cytopathology per Acc# [id number] was interpreted as Positive for Malignancy. Carcinoma with acinar and ductal differentiation. The lesional cells are immunoreactive for Trypsin, CK7, CK19, MUC1 (focal) and monoclonal CEA (focal); they are negative for synaptophysin and may-catenin (negative for nuclear staining). SMAD4 expression is retained in lesional cells. 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 We discussed his case at the tumor board and given the acinar cell histology the group recommended asurgery up-front approach. Diagnostic laparoscopy was recommended prior to surgery to assess for metastatic disease. Once resected adjuvant therapy could be considered after review of the final pathology. Problem List (Comorbidities): Patient Active Problem List Diagnosis Code ??? Malignant neoplasm of head of pancreas C25.0 Imaging: As above. Pathology: As above. Stage: [...] Collazo MD This note was created using [employer] voice recognition software. documented in this encounter Plan of Treatment Upcoming Encounters Date Type Specialty Care Team Description 02/23/2022 Office Visit Hematology and Oncology Gigi Sosa MD [facility] [place] [address] Ebonie Gordon, [address] [address] documented as of this encounter Visit Diagnoses Not on filedocumented in this encounter Care Teams Crop Grain Or Livestock Farm Manager Relationship Specialty Start Date End Date Corrie Pacheco APRN PCP - General Family Medicine 04/04/18 [address] [facility] [address] documented as of this encounter
--- OUTSIDE RECORDS SUMMARY | 2022-02-23 01:47 | XMS_ITS | Encounter Summary ---
:1960 Demographics Home Phone Preferred Language Unknown Marital Status Unknown Anglican Affiliation Unknown Race Unknown Ethnic Group Unknown Author Organization [facility] Address [address] [place] [address] Care Team Providers Name Role Phone Unavailable Primary Care Provider Unavailable Encounter Details Date Type Department Care Team Description 05/23/2021 Lab Requisition [facility] Outr Resulting Lab, Pathology & Laboratory Provider [facility] [address] [place] [address] Social History Tobacco Use Types Packs/Day Years Used Date Never Assessed Sex Assigned at Date Recorded Not on file documented as of this encounter Plan of Treatment Not on filedocumented as of this encounter Procedures Procedure Name Priority Date/Time Associated Diagnosis Comme nts CA 19-9 (NEW Routine 05/23/2021 7:30 EST Results for this SIEMENS METHOD IN procedure are in USE 05/10/15) the results section. documented in this encounter Results CA 19-9 (NEW SIEMENS METHOD IN USE 05/10/15) (05/23/2021 7:30 EST) CA 19-9 <2 <35 U/mL [facility] Comment: LABORATORY SERVICES NOTE: Serum CA 19-9 concentration should not be interpreted as absolute evidence for the presence or absence of malignant disease. Assayed on Siemens ADVIA Scout taur XPT using chemiluminescent technology. ??Values obtained by using different assay methods cannot be used interchangeably. Specimen Blood - Venous blood (substance) Performing Organization Address City/State/ZIP Code Phon e Number [facility] [address] [place] [address] SERVICES documented in this encounter Visit Diagnoses Not on filedocumented in this encounter
--- OUTSIDE RECORDS SUMMARY | 2022-02-23 01:47 | XMS_ITS | Encounter Summary ---
:1960 Demographics Home Phone Preferred Language Unknown Marital Status Unknown Anabaptism Affiliation Unknown Race Unknown Ethnic Group Unknown Author Organization [facility] Address [address] [place] [address] Care Team Providers Name Role Phone Unavailable Primary Care Provider Unavailable Encounter Details Date Type Department Care Team Description 08/09/2020 Lab Requisition [facility] Outr Resulting Lab, Pathology & Laboratory Provider [facility] [address] [place] [address] Social History Tobacco Use Types Packs/Day Years Used Date Never Assessed Sex Assigned at Date Recorded Not on file documented as of this encounter Plan of Treatment Not on filedocumented as of this encounter Procedures Procedure Name Priority Date/Time Associated Diagnosis Comme nts CA 19-9 (NEW Routine 08/09/2020 13:10 Results for this SIEMENS METHOD IN EDT procedure are in USE 05/10/15) the results section. documented in this encounter Results CA 19-9 (NEW SIEMENS METHOD IN USE 05/10/15) (08/09/2020 13:10 EDT) CA 19-9 <2 <35 U/mL [facility] Comment: LABORATORY SERVICES NOTE: Serum CA 19-9 concentration should not be interpreted as absolute evidence for the presence or absence of malignant disease. Assayed on Siemens ADVIA Scout taur XPT using chemiluminescent technology. ??Values obtained by using different assay methods cannot be used interchangeably. Specimen Blood - Venous blood (substance) Performing Organization Address City/State/ZIP Code Phon e Number [facility] [address] [place] [address] SERVICES documented in this encounter Visit Diagnoses Not on filedocumented in this encounter
--- OUTSIDE RECORDS SUMMARY | 2022-02-23 01:47 | XMS_ITS | Encounter Summary ---
:1960 Demographics Home Phone Preferred Language Unknown Marital Status Unknown Rastafarian Affiliation Unknown Race Unknown Ethnic Group Unknown Author Organization [facility] Address [address] [place] [address] Care Team Providers Name Role Phone Unavailable Primary Care Provider Unavailable Encounter Details Date Type Department Care Team Description 01/28/2021 Lab Requisition [facility] Outr Resulting Lab, Pathology & Laboratory Provider [facility] [address] [place] [address] Social History Tobacco Use Types Packs/Day Years Used Date Never Assessed Sex Assigned at Date Recorded Not on file documented as of this encounter Plan of Treatment Not on filedocumented as of this encounter Procedures Procedure Name Priority Date/Time Associated Diagnosis Comme nts CA 19-9 (NEW Routine 01/27/2021 15:47 Results for this SIEMENS METHOD IN EDT procedure are in USE 05/10/15) the results section. documented in this encounter Results CA 19-9 (NEW SIEMENS METHOD IN USE 05/10/15) (01/27/2021 15:47 EDT) CA 19-9 <2 <35 U/mL [facility] Comment: LABORATORY SERVICES NOTE: Serum CA 19-9 concentration should not be interpreted as absolute evidence for the presence or absence of malignant disease. Assayed on Siemens ADVIA Scout taur XPT using chemiluminescent technology. ??Values obtained by using different assay methods cannot be used interchangeably. Specimen Blood - Venous blood (substance) Performing Organization Address City/State/ZIP Code Phon e Number [facility] [address] [place] [address] SERVICES documented in this encounter Visit Diagnoses Not on filedocumented in this encounter
[2022-02-23 12:35] LABS: Abs Immature Grans 0.02 10^3/uL (0.0-0.06); Absolute Basophil Count 0.06 10^3/uL (0.0-0.2); Absolute Eosinophil Count 0.16 10^3/uL (0.0-0.7); Absolute Lymphocyte Count 1.91 10^3/uL (1.2-3.4); Absolute Monocyte Count 0.55 10^3/uL (0.1-0.8); Absolute Neutrophil Count 3.42 10^3/uL (1.2-6.7); Eosinophils % 2.6; HCT 42.9 % (40.0-50.0); HGB 14.6 g/dL (13.5-17.5); Immature Grans % 0.3; Lymphocytes % 31.2; MCH 30.5 pg (27.0-33.0); MCV 90 fL (80-95); MPV 9.4 fL (8.0-11.0); Neutrophils % 55.9; Platelet Count 173 10^3/uL (130-400); RBC 4.79 10^6/uL (4.36-5.78); RDW-SD 42.6 fL; WBC 6.12 10^3/uL (4.4-10.8)
[2022-02-23 12:55] LABS: ALT 26 U/L (16-63); AST 22 U/L (15-37); Albumin 3.9 g/dL (3.4-5.0); Alkaline Phosphatase 55 U/L (46-116); Anion Gap 7.4 mmol/L (3-11); BUN 20 mg/dL (7-18); Bilirubin, Total 0.3 mg/dL (0.2-1.0); CO2 27.6 mmol/L (21.0-32.0); CREATININE 0.9 mg/dL (0.70-1.30); Calcium 8.9 mg/dL (8.5-10.1); Chloride 106 mmol/L (98-107); Estimated GFR 96.57 (mL/min/1.73m2); Glucose 98 mg/dL (74-106); Sodium 141 mmol/L (136-145); Total Protein 7.5 g/dL (6.4-8.2)
[2022-02-26 12:52] LABS: CA 19-9 <2 U/mL (<35)
== END 2022-02-23 01:40 | disposition home or self-care (01) ==
LOC: LBO 01:40
PROVIDERS: PCP Nurse Practitioner; Visit Provider Internal Medicine Hematology & Oncology
DX: C25.0 Malignant neoplasm of head of pancreas (principal)
CPT/HCPCS: 36415; 80053; 85025; 86301

== ENCOUNTER 2022-11-07 02:42 | Outpatient (CLI) | payer BC, SELFPAY ==
[2022-11-07 12:23] LABS: Abs Immature Grans 0.02 10^3/uL (0.0-0.06); Absolute Basophil Count 0.05 10^3/uL (0.0-0.2); Absolute Eosinophil Count 0.07 10^3/uL (0.0-0.7); Absolute Lymphocyte Count 1.58 10^3/uL (1.2-3.4); Absolute Monocyte Count 0.47 10^3/uL (0.1-0.8); Absolute Neutrophil Count 3.58 10^3/uL (1.2-6.7); Basophils % 0.9; Eosinophils % 1.2; HCT 42.9 % (40.0-50.0); HGB 14.7 g/dL (13.5-17.5); Immature Grans % 0.3; Lymphocytes % 27.4; MCH 30.8 pg (27.0-33.0); MCHC 34.3 % (32.0-36.0); MCV 90 fL (80-95); MPV 9.1 fL (8.0-11.0); Monocytes % 8.1; Neutrophils % 62.1; Platelet Count 186 10^3/uL (130-400); RBC 4.78 10^6/uL (4.36-5.78); RDW-SD 42.5 fL; WBC 5.77 10^3/uL (4.4-10.8)
[2022-11-07 12:47] LABS: ALT 29 U/L (16-63); AST 22 U/L (15-37); Albumin 3.8 g/dL (3.4-5.0); Alkaline Phosphatase 54 U/L (46-116); Anion Gap 9.2 mmol/L (3-11); BUN 21 mg/dL (7-18); Bilirubin, Total 0.5 mg/dL (0.2-1.0); CO2 28.8 mmol/L (21.0-32.0); CREATININE 1.1 mg/dL (0.70-1.30); Chloride 105 mmol/L (98-107); Glucose 99 mg/dL (74-106); Potassium 4.4 mmol/L (3.5-5.1); Sodium 143 mmol/L (136-145); Total Protein 7.8 g/dL (6.4-8.2)
[2022-11-09 12:40] LABS: CA 19-9 8 U/mL (<35)
== END 2022-11-07 02:43 | disposition home or self-care (01) ==
PROVIDERS: PCP Nurse Practitioner; Visit Provider Nurse Practitioner Family
DX: C25.0 Malignant neoplasm of head of pancreas (principal)
CPT/HCPCS: 36415; 80053; 85025; 86301

== ENCOUNTER 2023-05-22 02:45 | Outpatient (CLI) | payer BC, SELFPAY ==
[2023-05-22 11:47] LABS: Abs Immature Grans 0.02 10^3/uL (0.0-0.06); Absolute Basophil Count 0.07 10^3/uL (0.0-0.2); Absolute Eosinophil Count 0.21 10^3/uL (0.0-0.7); Absolute Lymphocyte Count 1.94 10^3/uL (1.2-3.4); Absolute Monocyte Count 0.59 10^3/uL (0.1-0.8); Absolute Neutrophil Count 3.58 10^3/uL (1.2-6.7); Basophils % 1.1; Eosinophils % 3.3; HCT 40.8 % (40.0-50.0); HGB 13.9 g/dL (13.5-17.5); Immature Grans % 0.3; Lymphocytes % 30.3; MCH 29.8 pg (27.0-33.0); MCHC 34.1 % (32.0-36.0); MCV 88 fL (80-95); MPV 9.3 fL (8.0-11.0); Monocytes % 9.2; Neutrophils % 55.8; Platelet Count 184 10^3/uL (130-400); RBC 4.66 10^6/uL (4.36-5.78); RDW 12.9 % (11.8-14.1); RDW-SD 40.8 fL; WBC 6.41 10^3/uL (4.4-10.8)
[2023-05-22 12:12] LABS: ALT 25 U/L (16-63); AST 19 U/L (15-37); Albumin 3.8 g/dL (3.4-5.0); Alkaline Phosphatase 56 U/L (46-116); BUN 18 mg/dL (7-18); Bilirubin, Total 0.5 mg/dL (0.2-1.0); Chloride 104 mmol/L (98-107); Estimated GFR 84.57 (mL/min/1.73m2); Glucose 102 mg/dL (74-106); Potassium 4.2 mmol/L (3.5-5.1); Sodium 140 mmol/L (136-145); Total Protein 7.7 g/dL (6.4-8.2)
[2023-05-23 00:05] LABS: CA 19-9 6 U/mL (<35)
== END 2023-05-22 02:46 | disposition home or self-care (01) ==
PROVIDERS: PCP Nurse Practitioner; Visit Provider Nurse Practitioner Family
DX: C25.9 Malignant neoplasm of pancreas, unspecified (principal)
CPT/HCPCS: 36415; 80053; 85025; 86301

== ENCOUNTER 2023-06-23 00:30 | Outpatient (RCR) | payer BC, SELFPAY ==
[2023-06-09 14:42] VITALS: BP 134/71; PULSE 56; RESP 18; TEMP 37.2; O2SAT 100
[2023-06-09] MEDS: Normal Saline Flush 10 ML SYR IVP (14:44)
[2023-06-21 08:45] LABS: Abs Immature Grans 0.02 10^3/uL (0.0-0.06); Absolute Basophil Count 0.08 10^3/uL (0.0-0.2); Absolute Eosinophil Count 0.24 10^3/uL (0.0-0.7); Absolute Lymphocyte Count 1.42 10^3/uL (1.2-3.4); Absolute Monocyte Count 0.65 10^3/uL (0.1-0.8); Absolute Neutrophil Count 3.83 10^3/uL (1.2-6.7); Basophils % 1.3; Eosinophils % 3.8; HCT 38.6 % (40.0-50.0); HGB 13.3 g/dL (13.5-17.5); Immature Grans % 0.3; Lymphocytes % 22.8; MCH 29.8 pg (27.0-33.0); MCHC 34.5 % (32.0-36.0); MCV 87 fL (80-95); MPV 8.7 fL (8.0-11.0); Monocytes % 10.4; Neutrophils % 61.4; Platelet Count 202 10^3/uL (130-400); RBC 4.46 10^6/uL (4.36-5.78); RDW 12.8 % (11.8-14.1); WBC 6.24 10^3/uL (4.4-10.8)
[2023-06-21] MEDS: Normal Saline Flush 10 ML SYR IVP (08:54)
[2023-06-21 09:00] LABS: ALT 24 U/L (16-63); AST 13 U/L (15-37); Albumin 3.4 g/dL (3.4-5.0); Alkaline Phosphatase 63 U/L (46-116); Anion Gap 6.6 mmol/L (3-11); BUN 14 mg/dL (7-18); Bilirubin, Total 0.2 mg/dL (0.2-1.0); CO2 28.4 mmol/L (21.0-32.0); CREATININE 0.8 mg/dL (0.70-1.30); Calcium 8.5 mg/dL (8.5-10.1); Chloride 105 mmol/L (98-107); Estimated GFR 99.44 (mL/min/1.73m2); Glucose 101 mg/dL (74-106); Potassium 3.8 mmol/L (3.5-5.1); Sodium 140 mmol/L (136-145)
[2023-06-21 21:54] LABS: CA 19-9 <2 U/mL (<35)
[2023-06-23] MEDS: Normal Saline Flush 10 ML SYR IVP (13:23)
== END 2023-07-04 23:59 | disposition home or self-care (01) ==
LOC: INF 00:30
PROVIDERS: PCP Nurse Practitioner; Visit Provider Internal Medicine Hematology & Oncology
DX: C79.9 Secondary malignant neoplasm of unspecified site (principal); C25.0 Malignant neoplasm of head of pancreas; Z45.2 Encounter for adjustment and management of vascular access device
CPT/HCPCS: 36591; 80053; 96523; 85025; 86301

== ENCOUNTER 2023-08-04 00:03 | Outpatient (RCR) | payer BC, SELFPAY ==
[2023-07-05 00:26] VITALS: BP 134/71; PULSE 56; RESP 18; TEMP 37.2
[2023-07-05] MEDS: Normal Saline Flush 10 ML SYR IVP (07:30)
[2023-07-05 08:16] LABS: Abs Immature Grans 0.01 10^3/uL (0.0-0.06); Absolute Basophil Count 0.04 10^3/uL (0.0-0.2); Absolute Eosinophil Count 0.22 10^3/uL (0.0-0.7); Absolute Lymphocyte Count 1.35 10^3/uL (1.2-3.4); Absolute Monocyte Count 0.57 10^3/uL (0.1-0.8); Absolute Neutrophil Count 1.71 10^3/uL (1.2-6.7); Eosinophils % 5.6; HCT 36.6 % (40.0-50.0); HGB 12.6 g/dL (13.5-17.5); Immature Grans % 0.3; Lymphocytes % 34.6; MCH 29.9 pg (27.0-33.0); MCHC 34.4 % (32.0-36.0); MCV 87 fL (80-95); Monocytes % 14.6; Neutrophils % 43.9; Platelet Count 121 10^3/uL (130-400); RBC 4.22 10^6/uL (4.36-5.78); RDW 13.6 % (11.8-14.1); RDW-SD 41.8 fL
[2023-07-05 08:36] LABS: ALT 27 U/L (16-63); AST 11 U/L (15-37); Albumin 3.2 g/dL (3.4-5.0); Alkaline Phosphatase 66 U/L (46-116); Anion Gap 9.3 mmol/L (3-11); BUN 15 mg/dL (7-18); Bilirubin, Total 0.2 mg/dL (0.2-1.0); CO2 25.7 mmol/L (21.0-32.0); CREATININE 0.8 mg/dL (0.70-1.30); Calcium 8.7 mg/dL (8.5-10.1); Chloride 107 mmol/L (98-107); Estimated GFR 99.44 (mL/min/1.73m2); Glucose 110 mg/dL (74-106); Potassium 3.6 mmol/L (3.5-5.1); Sodium 142 mmol/L (136-145); Total Protein 6.8 g/dL (6.4-8.2)
[2023-07-05 20:02] LABS: CA 19-9 <2 U/mL (<35)
[2023-07-07] MEDS: Normal Saline Flush 10 ML SYR IVP (12:00)
[2023-07-19 08:08] VITALS: BP 134/71; PULSE 56; RESP 18; TEMP 37.2
[2023-07-19 08:10] LABS: Abs Immature Grans 0.01 10^3/uL (0.0-0.06); Absolute Basophil Count 0.04 10^3/uL (0.0-0.2); Absolute Eosinophil Count 0.13 10^3/uL (0.0-0.7); Absolute Lymphocyte Count 1.27 10^3/uL (1.2-3.4); Absolute Monocyte Count 0.73 10^3/uL (0.1-0.8); Absolute Neutrophil Count 1.44 10^3/uL (1.2-6.7); Basophils % 1.1; Eosinophils % 3.6; HCT 38.3 % (40.0-50.0); HGB 13.1 g/dL (13.5-17.5); Immature Grans % 0.3; Lymphocytes % 35.1; MCH 30.5 pg (27.0-33.0); MCHC 34.2 % (32.0-36.0); MCV 89 fL (80-95); MPV 8.8 fL (8.0-11.0); Monocytes % 20.2; Neutrophils % 39.7; Platelet Count 142 10^3/uL (130-400); RBC 4.29 10^6/uL (4.36-5.78); RDW 14.4 % (11.8-14.1); RDW-SD 46.2 fL; WBC 3.62 10^3/uL (4.4-10.8)
[2023-07-19] MEDS: Normal Saline Flush 10 ML SYR IVP (08:10)
[2023-07-19 08:34] LABS: ALT 49 U/L (16-63); AST 27 U/L (15-37); Albumin 3.3 g/dL (3.4-5.0); Alkaline Phosphatase 68 U/L (46-116); Anion Gap 8.8 mmol/L (3-11); BUN 15 mg/dL (7-18); Bilirubin, Total 0.3 mg/dL (0.2-1.0); CO2 26.2 mmol/L (21.0-32.0); CREATININE 0.8 mg/dL (0.70-1.30); Calcium 8.2 mg/dL (8.5-10.1); Chloride 106 mmol/L (98-107); Estimated GFR 99.44 (mL/min/1.73m2); Glucose 84 mg/dL (74-106); Potassium 3.9 mmol/L (3.5-5.1); Sodium 141 mmol/L (136-145); Total Protein 6.9 g/dL (6.4-8.2)
[2023-07-21] MEDS: Normal Saline Flush 10 ML SYR IVP (12:00)
[2023-07-22 09:44] LABS: CA 19-9 <2 U/mL (<35)
[2023-08-02] MEDS: Normal Saline Flush 10 ML SYR IVP (09:05)
[2023-08-02 09:24] LABS: Abs Immature Grans 0.01 10^3/uL (0.0-0.06); Absolute Basophil Count 0.04 10^3/uL (0.0-0.2); Absolute Eosinophil Count 0.08 10^3/uL (0.0-0.7); Absolute Lymphocyte Count 1.13 10^3/uL (1.2-3.4); Absolute Monocyte Count 0.62 10^3/uL (0.1-0.8); Absolute Neutrophil Count 1.65 10^3/uL (1.2-6.7); Basophils % 1.1; Eosinophils % 2.3; HCT 36.7 % (40.0-50.0); HGB 12.5 g/dL (13.5-17.5); Immature Grans % 0.3; MCH 30.5 pg (27.0-33.0); MCHC 34.1 % (32.0-36.0); MCV 90 fL (80-95); Monocytes % 17.6; Neutrophils % 46.7; Platelet Count 145 10^3/uL (130-400); RDW 14.8 % (11.8-14.1); RDW-SD 48.3 fL; WBC 3.53 10^3/uL (4.4-10.8)
[2023-08-02 09:39] LABS: ALT 30 U/L (16-63); AST 18 U/L (15-37); Albumin 3.1 g/dL (3.4-5.0); Alkaline Phosphatase 73 U/L (46-116); Anion Gap 8.7 mmol/L (3-11); BUN 13 mg/dL (7-18); Bilirubin, Total 0.3 mg/dL (0.2-1.0); CO2 27.3 mmol/L (21.0-32.0); CREATININE 0.8 mg/dL (0.70-1.30); Calcium 8.4 mg/dL (8.5-10.1); Chloride 106 mmol/L (98-107); Estimated GFR 99.44 (mL/min/1.73m2); Glucose 114 mg/dL (74-106); Potassium 3.9 mmol/L (3.5-5.1); Sodium 142 mmol/L (136-145); Total Protein 6.8 g/dL (6.4-8.2)
[2023-08-02 20:30] LABS: CA 19-9 2 U/mL (<35)
== END 2023-08-04 23:59 | disposition home or self-care (01) ==
LOC: INF 00:03
PROVIDERS: PCP Nurse Practitioner; Visit Provider Internal Medicine Hematology & Oncology
DX: C79.9 Secondary malignant neoplasm of unspecified site (principal); C25.9 Malignant neoplasm of pancreas, unspecified; Z45.2 Encounter for adjustment and management of vascular access device
CPT/HCPCS: 36591; 80053; 96523; 85025; 86301

== ENCOUNTER 2023-09-01 00:09 | Outpatient (RCR) | payer BC, SELFPAY ==
[2023-08-05 00:21] VITALS: BP 134/71; PULSE 56; RESP 18; TEMP 37.2
[2023-08-16] MEDS: Normal Saline Flush 10 ML SYR IVP (09:11)
[2023-08-16 09:18] LABS: Abs Immature Grans 0.01 10^3/uL (0.0-0.06); Absolute Basophil Count 0.05 10^3/uL (0.0-0.2); Absolute Eosinophil Count 0.08 10^3/uL (0.0-0.7); Absolute Lymphocyte Count 1.23 10^3/uL (1.2-3.4); Absolute Monocyte Count 0.88 10^3/uL (0.1-0.8); Absolute Neutrophil Count 2.73 10^3/uL (1.2-6.7); Eosinophils % 1.6; HCT 35.6 % (40.0-50.0); HGB 12.5 g/dL (13.5-17.5); Immature Grans % 0.2; Lymphocytes % 24.7; MCH 31.9 pg (27.0-33.0); MCHC 35.1 % (32.0-36.0); MCV 91 fL (80-95); Monocytes % 17.7; Neutrophils % 54.8; Platelet Count 117 10^3/uL (130-400); RBC 3.92 10^6/uL (4.36-5.78); RDW 15.4 % (11.8-14.1); RDW-SD 50.6 fL; WBC 4.98 10^3/uL (4.4-10.8)
[2023-08-16 09:35] LABS: ALT 40 U/L (16-63); AST 26 U/L (15-37); Albumin 3.2 g/dL (3.4-5.0); Alkaline Phosphatase 77 U/L (46-116); Anion Gap 6.7 mmol/L (3-11); BUN 14 mg/dL (7-18); Bilirubin, Total 0.3 mg/dL (0.2-1.0); CO2 27.3 mmol/L (21.0-32.0); CREATININE 0.8 mg/dL (0.70-1.30); Calcium 8.4 mg/dL (8.5-10.1); Chloride 107 mmol/L (98-107); Estimated GFR 99.44 (mL/min/1.73m2); Glucose 95 mg/dL (74-106); Potassium 3.8 mmol/L (3.5-5.1); Sodium 141 mmol/L (136-145)
[2023-08-16 21:19] LABS: CA 19-9 <2 U/mL (<35)
[2023-08-18] MEDS: Normal Saline Flush 10 ML SYR IVP (15:00)
[2023-08-30] MEDS: Normal Saline Flush 10 ML SYR IVP (07:30)
[2023-08-30 07:51] LABS: Abs Immature Grans 0.01 10^3/uL (0.0-0.06); Absolute Basophil Count 0.03 10^3/uL (0.0-0.2); Absolute Lymphocyte Count 1.16 10^3/uL (1.2-3.4); Absolute Monocyte Count 0.66 10^3/uL (0.1-0.8); Absolute Neutrophil Count 1.23 10^3/uL (1.2-6.7); Basophils % 0.9; Eosinophils % 3.1; HCT 35.2 % (40.0-50.0); HGB 12.2 g/dL (13.5-17.5); Immature Grans % 0.3; Lymphocytes % 36.4; MCH 31.8 pg (27.0-33.0); MCHC 34.7 % (32.0-36.0); MCV 92 fL (80-95); MPV 9.1 fL (8.0-11.0); Monocytes % 20.7; Neutrophils % 38.6; Platelet Count 101 10^3/uL (130-400); RBC 3.84 10^6/uL (4.36-5.78); RDW 15.9 % (11.8-14.1); RDW-SD 52.8 fL; WBC 3.19 10^3/uL (4.4-10.8)
[2023-08-30 08:07] LABS: ALT 39 U/L (16-63); AST 27 U/L (15-37); Albumin 3.4 g/dL (3.4-5.0); Alkaline Phosphatase 82 U/L (46-116); Anion Gap 8.6 mmol/L (3-11); BUN 11 mg/dL (7-18); Bilirubin, Total 0.4 mg/dL (0.2-1.0); CO2 27.4 mmol/L (21.0-32.0); CREATININE 0.7 mg/dL (0.70-1.30); Calcium 8.4 mg/dL (8.5-10.1); Chloride 107 mmol/L (98-107); Estimated GFR 103.53 (mL/min/1.73m2); Glucose 117 mg/dL (74-106); Potassium 3.4 mmol/L (3.5-5.1); Sodium 143 mmol/L (136-145)
[2023-08-30 20:47] LABS: CA 19-9 4 U/mL (<35)
[2023-09-01] MEDS: Normal Saline Flush 10 ML SYR IVP (11:30)
== END 2023-09-03 23:59 | disposition home or self-care (01) ==
LOC: INF 00:09
PROVIDERS: PCP Nurse Practitioner; Visit Provider Internal Medicine Hematology & Oncology
DX: C79.9 Secondary malignant neoplasm of unspecified site (principal); C25.9 Malignant neoplasm of pancreas, unspecified; Z45.2 Encounter for adjustment and management of vascular access device
CPT/HCPCS: 36591; 80053; 96523; 85025; 86301

== ENCOUNTER 2023-09-27 02:19 | Outpatient (RCR) | payer BC, SELFPAY ==
[2023-09-04 00:27] VITALS: BP 134/71; PULSE 56; RESP 18; TEMP 37.2
[2023-09-12] MEDS: Normal Saline Flush 10 ML SYR IVP (12:34)
[2023-09-12 13:01] LABS: Albumin 3.3 g/dL (3.4-5.0); Alkaline Phosphatase 84 U/L (46-116); BUN 15 mg/dL (7-18); Bilirubin, Total 0.4 mg/dL (0.2-1.0); CREATININE 0.8 mg/dL (0.70-1.30); Calcium 8.4 mg/dL (8.5-10.1); Chloride 107 mmol/L (98-107); Estimated GFR 99.44 (mL/min/1.73m2); Glucose 105 mg/dL (74-106); Potassium 3.8 mmol/L (3.5-5.1); Sodium 142 mmol/L (136-145); Total Protein 6.9 g/dL (6.4-8.2)
[2023-09-12 13:02] LABS: ALT 34 U/L (16-63); AST 25 U/L (15-37); Anion Gap 8.5 mmol/L (3-11); CO2 26.5 mmol/L (21.0-32.0)
[2023-09-12 13:03] LABS: Absolute Lymphocyte Count 1.09 10^3/uL (1.2-3.4); Absolute Neutrophil Count 1.54 10^3/uL (1.2-6.7); HCT 34.5 % (40.0-50.0); HGB 11.9 g/dL (13.5-17.5); Lymphocytes % 31.3 %; MCH 32.1 pg (27.0-33.0); MCHC 34.5 % (32.0-36.0); MCV 93 fL (80-95); MPV 9.5 fL (8.0-11.0); Neutrophils % 44.2 %; Platelet Count 128 10^3/uL (130-400); RBC 3.71 10^6/uL (4.36-5.78); RDW 16.1 % (11.8-14.1); RDW-SD 54.6 fL; WBC 3.48 10^3/uL (4.4-10.8)
[2023-09-12 13:04] LABS: Abs Immature Grans 0.02 10^3/uL (0.0-0.06); Absolute Basophil Count 0.03 10^3/uL (0.0-0.2); Absolute Eosinophil Count 0.09 10^3/uL (0.0-0.7); Absolute Monocyte Count 0.71 10^3/uL (0.1-0.8); Basophils % 0.9 %; Eosinophils % 2.6 %; Immature Grans % 0.6 %; Monocytes % 20.4 %
[2023-09-13 09:25] LABS: CA 19-9 3 U/mL (<35)
[2023-09-14] MEDS: Normal Saline Flush 10 ML SYR IVP (12:30)
[2023-09-27] MEDS: Normal Saline Flush 10 ML SYR IVP (07:36)
[2023-09-27 07:49] LABS: Abs Immature Grans 0.01 10^3/uL (0.0-0.06); Absolute Basophil Count 0.02 10^3/uL (0.0-0.2); Absolute Eosinophil Count 0.04 10^3/uL (0.0-0.7); Absolute Lymphocyte Count 0.86 10^3/uL (1.2-3.4); Absolute Monocyte Count 0.72 10^3/uL (0.1-0.8); Absolute Neutrophil Count 0.79 10^3/uL (1.2-6.7); Basophils % 0.8 %; Eosinophils % 1.6 %; HCT 34.7 % (40.0-50.0); HGB 11.8 g/dL (13.5-17.5); Immature Grans % 0.4 %; Lymphocytes % 35.2 %; MCH 32.8 pg (27.0-33.0); MCV 96 fL (80-95); MPV 9.2 fL (8.0-11.0); Monocytes % 29.5 %; Neutrophils % 32.5 %; Platelet Count 116 10^3/uL (130-400); RDW 15.2 % (11.8-14.1); RDW-SD 54.3 fL; WBC 2.44 10^3/uL (4.4-10.8)
[2023-09-27 08:10] LABS: Diff Comment Diff Reviewed; RBC Morphology Normal
[2023-09-27 08:21] LABS: ALT 31 U/L (16-63); AST 25 U/L (15-37); Albumin 3.1 g/dL (3.4-5.0); Alkaline Phosphatase 81 U/L (46-116); Anion Gap 9.3 mmol/L (3-11); BUN 12 mg/dL (7-18); Bilirubin, Total 0.3 mg/dL (0.2-1.0); CO2 26.7 mmol/L (21.0-32.0); CREATININE 0.9 mg/dL (0.70-1.30); Calcium 8.3 mg/dL (8.5-10.1); Chloride 105 mmol/L (98-107); Estimated GFR 95.97 (mL/min/1.73m2); Glucose 117 mg/dL (74-106); Potassium 3.9 mmol/L (3.5-5.1); Sodium 141 mmol/L (136-145); Total Protein 6.8 g/dL (6.4-8.2)
[2023-09-27 20:53] LABS: CA 19-9 2 U/mL (<35)
== END 2023-10-04 23:59 | disposition home or self-care (01) ==
LOC: INF 02:19
PROVIDERS: PCP Nurse Practitioner; Visit Provider Internal Medicine Hematology & Oncology
DX: C79.9 Secondary malignant neoplasm of unspecified site (principal); C25.9 Malignant neoplasm of pancreas, unspecified; Z45.2 Encounter for adjustment and management of vascular access device
CPT/HCPCS: 36591; 80053; 96523; 85025; 86301

== ENCOUNTER 2023-11-03 01:14 | Outpatient (RCR) | payer BC, SELFPAY ==
[2023-10-05 00:26] VITALS: BP 134/71; PULSE 56; RESP 18; TEMP 37.2
[2023-10-18] MEDS: Normal Saline Flush 10 ML SYR IVP (07:40)
[2023-10-18 07:58] LABS: Abs Immature Grans 0.02 10^3/uL (0.0-0.06); Absolute Basophil Count 0.06 10^3/uL (0.0-0.2); Absolute Eosinophil Count 0.08 10^3/uL (0.0-0.7); Absolute Lymphocyte Count 1.37 10^3/uL (1.2-3.4); Absolute Monocyte Count 0.61 10^3/uL (0.1-0.8); Absolute Neutrophil Count 2.66 10^3/uL (1.2-6.7); Basophils % 1.3 %; Eosinophils % 1.7 %; HCT 39.1 % (40.0-50.0); HGB 13.5 g/dL (13.5-17.5); Immature Grans % 0.4 %; Lymphocytes % 28.5 %; MCH 33.3 pg (27.0-33.0); MCHC 34.5 % (32.0-36.0); MCV 97 fL (80-95); MPV 9.4 fL (8.0-11.0); Monocytes % 12.7 %; Neutrophils % 55.4 %; Platelet Count 159 10^3/uL (130-400); RBC 4.05 10^6/uL (4.36-5.78); RDW 13.5 % (11.8-14.1); RDW-SD 48.1 fL
[2023-10-18 08:15] LABS: ALT 33 U/L (16-63); AST 26 U/L (15-37); Albumin 3.5 g/dL (3.4-5.0); Alkaline Phosphatase 88 U/L (46-116); Anion Gap 8.2 mmol/L (3-11); BUN 19 mg/dL (7-18); Bilirubin, Total 0.3 mg/dL (0.2-1.0); CO2 26.8 mmol/L (21.0-32.0); CREATININE 0.9 mg/dL (0.70-1.30); Calcium 8.7 mg/dL (8.5-10.1); Chloride 108 mmol/L (98-107); Estimated GFR 95.97 (mL/min/1.73m2); Glucose 112 mg/dL (74-106); Sodium 143 mmol/L (136-145); Total Protein 7.5 g/dL (6.4-8.2)
[2023-10-18 22:58] LABS: CA 19-9 <2 U/mL (<35)
[2023-11-01] MEDS: Normal Saline Flush 10 ML SYR IVP (10:43)
[2023-11-01 11:06] LABS: Abs Immature Grans 0.01 10^3/uL (0.0-0.06); Absolute Basophil Count 0.03 10^3/uL (0.0-0.2); Absolute Eosinophil Count 0.09 10^3/uL (0.0-0.7); Absolute Lymphocyte Count 1.34 10^3/uL (1.2-3.4); Absolute Monocyte Count 0.49 10^3/uL (0.1-0.8); Absolute Neutrophil Count 2.68 10^3/uL (1.2-6.7); Basophils % 0.6 %; Eosinophils % 1.9 %; HGB 13.2 g/dL (13.5-17.5); Immature Grans % 0.2 %; Lymphocytes % 28.9 %; MCH 32.9 pg (27.0-33.0); MCHC 34.7 % (32.0-36.0); MCV 95 fL (80-95); MPV 9.1 fL (8.0-11.0); Monocytes % 10.6 %; Neutrophils % 57.8 %; Platelet Count 146 10^3/uL (130-400); RBC 4.01 10^6/uL (4.36-5.78); RDW 12.6 % (11.8-14.1); RDW-SD 44.1 fL; WBC 4.64 10^3/uL (4.4-10.8)
[2023-11-01 11:23] LABS: ALT 31 U/L (16-63); AST 22 U/L (15-37); Albumin 3.5 g/dL (3.4-5.0); Alkaline Phosphatase 85 U/L (46-116); Anion Gap 7.4 mmol/L (3-11); BUN 16 mg/dL (7-18); Bilirubin, Total 0.31 mg/dL (0.2-1.0); CO2 27.6 mmol/L (21.0-32.0); Calcium 8.6 mg/dL (8.5-10.1); Chloride 106 mmol/L (98-107); Estimated GFR 84.57 (mL/min/1.73m2); Glucose 110 mg/dL (74-106); Potassium 3.9 mmol/L (3.5-5.1); Sodium 141 mmol/L (136-145); Total Protein 7.2 g/dL (6.4-8.2)
[2023-11-01 22:53] LABS: CA 19-9 3 U/mL (<35)
[2023-11-03] MEDS: Normal Saline Flush 10 ML SYR IVP (13:27)
== END 2023-11-03 23:59 | disposition home or self-care (01) ==
LOC: INF 01:14
PROVIDERS: PCP Nurse Practitioner; Visit Provider Internal Medicine Hematology & Oncology
DX: C25.9 Malignant neoplasm of pancreas, unspecified; Z45.2 Encounter for adjustment and management of vascular access device
CPT/HCPCS: 36591; 80053; 96523; 85025; 86301

== ENCOUNTER 2023-11-29 09:45 | Outpatient (RCR) | payer BC, SELFPAY ==
[2023-11-04 00:26] VITALS: BP 134/71; PULSE 56; RESP 18; TEMP 37.2
[2023-11-15 08:19] LABS: Abs Immature Grans 0.02 10^3/uL (0.0-0.06); Absolute Basophil Count 0.05 10^3/uL (0.0-0.2); Absolute Eosinophil Count 0.09 10^3/uL (0.0-0.7); Absolute Lymphocyte Count 1.22 10^3/uL (1.2-3.4); Absolute Monocyte Count 0.74 10^3/uL (0.1-0.8); Absolute Neutrophil Count 2.75 10^3/uL (1.2-6.7); Eosinophils % 1.8 %; HCT 37.1 % (40.0-50.0); HGB 12.6 g/dL (13.5-17.5); Immature Grans % 0.4 %; Lymphocytes % 25.1 %; MCH 32.6 pg (27.0-33.0); MCV 96 fL (80-95); MPV 9.2 fL (8.0-11.0); Monocytes % 15.2 %; Neutrophils % 56.5 %; Platelet Count 157 10^3/uL (130-400); RBC 3.86 10^6/uL (4.36-5.78); RDW 12.7 % (11.8-14.1); RDW-SD 45.1 fL; WBC 4.87 10^3/uL (4.4-10.8)
[2023-11-15 08:43] LABS: ALT 33 U/L (16-63); AST 22 U/L (15-37); Albumin 3.3 g/dL (3.4-5.0); Alkaline Phosphatase 87 U/L (46-116); Anion Gap 7.4 mmol/L (3-11); BUN 20 mg/dL (7-18); Bilirubin, Total 0.26 mg/dL (0.2-1.0); CO2 26.6 mmol/L (21.0-32.0); CREATININE 0.9 mg/dL (0.70-1.30); Calcium 8.4 mg/dL (8.5-10.1); Chloride 108 mmol/L (98-107); Estimated GFR 95.97 (mL/min/1.73m2); Glucose 119 mg/dL (74-106); Potassium 3.9 mmol/L (3.5-5.1); Sodium 142 mmol/L (136-145); Total Protein 6.9 g/dL (6.4-8.2)
[2023-11-15] MEDS: Normal Saline Flush 10 ML SYR IVP (08:48)
[2023-11-18 10:08] LABS: CA 19-9 7 U/mL (<35)
[2023-11-29 10:01] LABS: Abs Immature Grans 0.02 10^3/uL (0.0-0.06); Absolute Basophil Count 0.04 10^3/uL (0.0-0.2); Absolute Eosinophil Count 0.08 10^3/uL (0.0-0.7); Absolute Monocyte Count 0.63 10^3/uL (0.1-0.8); Absolute Neutrophil Count 2.87 10^3/uL (1.2-6.7); Basophils % 0.8 %; Eosinophils % 1.6 %; HCT 39.2 % (40.0-50.0); HGB 13.4 g/dL (13.5-17.5); Immature Grans % 0.4 %; Lymphocytes % 27.8 %; MCH 32.4 pg (27.0-33.0); MCHC 34.2 % (32.0-36.0); MCV 95 fL (80-95); Monocytes % 12.5 %; Neutrophils % 56.9 %; Platelet Count 170 10^3/uL (130-400); RBC 4.13 10^6/uL (4.36-5.78); RDW 12.5 % (11.8-14.1); RDW-SD 43.2 fL; WBC 5.04 10^3/uL (4.4-10.8)
[2023-11-29 10:28] LABS: ALT 37 U/L (16-63); AST 21 U/L (15-37); Albumin 3.6 g/dL (3.4-5.0); Alkaline Phosphatase 93 U/L (46-116); Anion Gap 7.8 mmol/L (3-11); BUN 15 mg/dL (7-18); Bilirubin, Total 0.34 mg/dL (0.2-1.0); CO2 28.2 mmol/L (21.0-32.0); Calcium 8.5 mg/dL (8.5-10.1); Chloride 106 mmol/L (98-107); Estimated GFR 84.05 (mL/min/1.73m2); Glucose 117 mg/dL (74-106); Potassium 4.1 mmol/L (3.5-5.1); Sodium 142 mmol/L (136-145); Total Protein 7.1 g/dL (6.4-8.2)
[2023-12-02 13:50] LABS: CA 19-9 <2 U/mL (<35)
== END 2023-12-04 23:59 | disposition home or self-care (01) ==
LOC: INF 09:45
PROVIDERS: Visit Provider Internal Medicine Hematology & Oncology
DX: Z45.2 Encounter for adjustment and management of vascular access device (principal); C79.9 Secondary malignant neoplasm of unspecified site; C25.9 Malignant neoplasm of pancreas, unspecified
CPT/HCPCS: 36591; 80053; 96523; 85025; 86301

== ENCOUNTER 2024-01-03 01:05 | Outpatient (RCR) | payer BC, SELFPAY ==
[2023-12-05 00:16] VITALS: BP 134/71; PULSE 56; RESP 18; TEMP 37.2
[2023-12-06] MEDS: Normal Saline Flush 10 ML SYR IVP (07:31)
[2023-12-06 07:47] LABS: Abs Immature Grans 0.02 10^3/uL (0.0-0.06); Absolute Basophil Count 0.06 10^3/uL (0.0-0.2); Absolute Eosinophil Count 0.13 10^3/uL (0.0-0.7); Absolute Lymphocyte Count 1.48 10^3/uL (1.2-3.4); Absolute Monocyte Count 0.77 10^3/uL (0.1-0.8); Absolute Neutrophil Count 2.18 10^3/uL (1.2-6.7); Basophils % 1.3 %; Eosinophils % 2.8 %; HCT 40.6 % (40.0-50.0); HGB 13.6 g/dL (13.5-17.5); Immature Grans % 0.4 %; Lymphocytes % 31.9 %; MCH 32.3 pg (27.0-33.0); MCHC 33.5 % (32.0-36.0); MCV 96 fL (80-95); MPV 9.3 fL (8.0-11.0); Monocytes % 16.6 %; Platelet Count 171 10^3/uL (130-400); RBC 4.21 10^6/uL (4.36-5.78); RDW 12.8 % (11.8-14.1); RDW-SD 45.2 fL; WBC 4.64 10^3/uL (4.4-10.8)
[2023-12-06 08:08] LABS: ALT 31 U/L (16-63); AST 19 U/L (15-37); Albumin 3.6 g/dL (3.4-5.0); Alkaline Phosphatase 87 U/L (46-116); Anion Gap 6.1 mmol/L (3-11); BUN 14 mg/dL (7-18); Bilirubin, Total 0.31 mg/dL (0.2-1.0); CO2 29.9 mmol/L (21.0-32.0); Calcium 8.6 mg/dL (8.5-10.1); Chloride 106 mmol/L (98-107); Estimated GFR 84.05 (mL/min/1.73m2); Glucose 98 mg/dL (74-106); Potassium 4.2 mmol/L (3.5-5.1); Sodium 142 mmol/L (136-145); Total Protein 7.1 g/dL (6.4-8.2)
[2023-12-06 19:28] LABS: CA 19-9 <2 U/mL (<35)
[2023-12-13] MEDS: Normal Saline Flush 10 ML SYR IVP (07:36)
[2023-12-13 08:16] LABS: Abs Immature Grans 0.02 10^3/uL (0.0-0.06); Absolute Basophil Count 0.04 10^3/uL (0.0-0.2); Absolute Eosinophil Count 0.03 10^3/uL (0.0-0.7); Absolute Lymphocyte Count 1.47 10^3/uL (1.2-3.4); Absolute Monocyte Count 0.33 10^3/uL (0.1-0.8); Absolute Neutrophil Count 1.46 10^3/uL (1.2-6.7); Basophils % 1.2 %; Eosinophils % 0.9 %; HCT 35.9 % (40.0-50.0); HGB 12.4 g/dL (13.5-17.5); Immature Grans % 0.6 %; Lymphocytes % 43.9 %; MCHC 34.5 % (32.0-36.0); MCV 93 fL (80-95); MPV 9.6 fL (8.0-11.0); Monocytes % 9.9 %; Neutrophils % 43.5 %; Platelet Count 116 10^3/uL (130-400); RBC 3.87 10^6/uL (4.36-5.78); RDW 12.2 % (11.8-14.1); RDW-SD 40.9 fL; WBC 3.35 10^3/uL (4.4-10.8)
[2023-12-13 08:32] LABS: ALT 27 U/L (16-63); AST 25 U/L (15-37); Albumin 3.5 g/dL (3.4-5.0); Alkaline Phosphatase 71 U/L (46-116); Anion Gap 6.1 mmol/L (3-11); BUN 25 mg/dL (7-18); Bilirubin, Total 0.28 mg/dL (0.2-1.0); CO2 27.9 mmol/L (21.0-32.0); Calcium 8.8 mg/dL (8.5-10.1); Chloride 106 mmol/L (98-107); Estimated GFR 84.05 (mL/min/1.73m2); Glucose 102 mg/dL (74-106); Potassium 4.4 mmol/L (3.5-5.1); Sodium 140 mmol/L (136-145); Total Protein 7.1 g/dL (6.4-8.2)
[2023-12-20 08:27] VITALS: BP 134/71; PULSE 56; RESP 18; TEMP 37.2
[2023-12-20] MEDS: Normal Saline Flush 10 ML SYR IVP (08:31)
[2023-12-20 08:37] LABS: Abs Immature Grans 0.01 10^3/uL (0.0-0.06); Absolute Basophil Count 0.02 10^3/uL (0.0-0.2); Absolute Eosinophil Count 0.01 10^3/uL (0.0-0.7); Absolute Lymphocyte Count 1.26 10^3/uL (1.2-3.4); Absolute Monocyte Count 0.19 10^3/uL (0.1-0.8); Absolute Neutrophil Count 1.11 10^3/uL (1.2-6.7); Basophils % 0.8 %; Eosinophils % 0.4 %; HCT 34.7 % (40.0-50.0); HGB 11.9 g/dL (13.5-17.5); Immature Grans % 0.4 %; Lymphocytes % 48.5 %; MCH 31.9 pg (27.0-33.0); MCHC 34.3 % (32.0-36.0); MCV 93 fL (80-95); MPV 9.4 fL (8.0-11.0); Monocytes % 7.3 %; Neutrophils % 42.6 %; RBC 3.73 10^6/uL (4.36-5.78); RDW-SD 40.7 fL
[2023-12-20 08:55] LABS: Diff Comment Diff Reviewed; Platelet Count 88 10^3/uL (130-400); RBC Morphology Normal
[2023-12-20 09:21] LABS: ALT 39 U/L (16-63); AST 28 U/L (15-37); Albumin 3.2 g/dL (3.4-5.0); Alkaline Phosphatase 75 U/L (46-116); Anion Gap 9.1 mmol/L (3-11); BUN 22 mg/dL (7-18); Bilirubin, Total 0.29 mg/dL (0.2-1.0); CO2 26.9 mmol/L (21.0-32.0); CREATININE 0.9 mg/dL (0.70-1.30); Calcium 8.5 mg/dL (8.5-10.1); Chloride 105 mmol/L (98-107); Estimated GFR 95.37 (mL/min/1.73m2); Glucose 116 mg/dL (74-106); Sodium 141 mmol/L (136-145)
[2023-12-20 23:47] LABS: CA 19-9 <2 U/mL (<35)
[2024-01-03] MEDS: Normal Saline Flush 10 ML SYR IVP (08:46)
[2024-01-03 09:02] LABS: Abs Immature Grans 0.04 10^3/uL (0.0-0.06); Absolute Basophil Count 0.02 10^3/uL (0.0-0.2); Absolute Eosinophil Count 0.07 10^3/uL (0.0-0.7); Absolute Lymphocyte Count 1.23 10^3/uL (1.2-3.4); Absolute Monocyte Count 0.77 10^3/uL (0.1-0.8); Absolute Neutrophil Count 1.44 10^3/uL (1.2-6.7); Basophils % 0.6 %; HCT 33.4 % (40.0-50.0); HGB 11.3 g/dL (13.5-17.5); Immature Grans % 1.1 %; Lymphocytes % 34.5 %; MCHC 33.8 % (32.0-36.0); MCV 95 fL (80-95); Monocytes % 21.6 %; Neutrophils % 40.2 %; Platelet Count 355 10^3/uL (130-400); RBC 3.53 10^6/uL (4.36-5.78); RDW 14.4 % (11.8-14.1); WBC 3.57 10^3/uL (4.4-10.8)
[2024-01-03 09:22] LABS: ALT 43 U/L (16-63); AST 22 U/L (15-37); Albumin 3.2 g/dL (3.4-5.0); Alkaline Phosphatase 78 U/L (46-116); Anion Gap 6.6 mmol/L (3-11); BUN 19 mg/dL (7-18); Bilirubin, Total 0.27 mg/dL (0.2-1.0); CO2 28.4 mmol/L (21.0-32.0); Calcium 8.4 mg/dL (8.5-10.1); Chloride 109 mmol/L (98-107); Estimated GFR 84.05 (mL/min/1.73m2); Glucose 96 mg/dL (74-106); Potassium 4.2 mmol/L (3.5-5.1); Sodium 144 mmol/L (136-145); Total Protein 6.7 g/dL (6.4-8.2)
[2024-01-03 19:58] LABS: CA 19-9 12 U/mL (<35)
== END 2024-01-04 23:59 | disposition home or self-care (01) ==
LOC: INF 01:05
PROVIDERS: Visit Provider Internal Medicine Hematology & Oncology
DX: C79.9 Secondary malignant neoplasm of unspecified site (principal); C25.9 Malignant neoplasm of pancreas, unspecified
CPT/HCPCS: 36591; 80053; 85025; 86301

== ENCOUNTER 2024-01-31 01:34 | Outpatient (RCR) | payer BC, SELFPAY ==
[2024-01-05 00:25] VITALS: BP 134/71; PULSE 56; RESP 18; TEMP 37.2
[2024-01-10] MEDS: Normal Saline Flush 10 ML SYR IVP (13:04)
[2024-01-10 13:32] LABS: Abs Immature Grans 0.35 10^3/uL (0.0-0.06); HCT 31.4 % (40.0-50.0); HGB 10.7 g/dL (13.5-17.5); MCH 32.1 pg (27.0-33.0); MCHC 34.1 % (32.0-36.0); MCV 94 fL (80-95); MPV 9.4 fL (8.0-11.0); Nucleated RBC 0.4 % (0.0-0.3); Platelet Count 276 10^3/uL (130-400); RBC 3.33 10^6/uL (4.36-5.78); RDW 14.3 % (11.8-14.1); RDW-SD 48.6 fL; WBC 4.79 10^3/uL (4.4-10.8)
[2024-01-10 13:47] LABS: ALT 54 U/L (16-63); AST 43 U/L (15-37); Albumin 3.4 g/dL (3.4-5.0); Alkaline Phosphatase 77 U/L (46-116); Anion Gap 7.4 mmol/L (3-11); BUN 10 mg/dL (7-18); Bilirubin, Total 0.26 mg/dL (0.2-1.0); CO2 26.6 mmol/L (21.0-32.0); CREATININE 0.9 mg/dL (0.70-1.30); Calcium 8.9 mg/dL (8.5-10.1); Chloride 105 mmol/L (98-107); Estimated GFR 95.37 (mL/min/1.73m2); Glucose 88 mg/dL (74-106); Potassium 4.1 mmol/L (3.5-5.1); Sodium 139 mmol/L (136-145)
[2024-01-10 13:52] LABS: Absolute Lymphocyte Count 1.34 10^3/uL (1.2-3.4); Absolute Monocyte Count 0.48 10^3/uL (0.1-0.8); Absolute Neutrophil Count 2.59 10^3/uL (1.2-6.7); Diff Comment Manual Differential; Metamyelocytes % 4; Myelocytes % 2; RBC Morphology Normal
[2024-01-17] MEDS: Normal Saline Flush 10 ML SYR IVP (08:00)
[2024-01-17 08:18] LABS: Absolute Basophil Count 0.05 10^3/uL (0.0-0.2); Absolute Eosinophil Count 0.02 10^3/uL (0.0-0.7); Absolute Lymphocyte Count 1.07 10^3/uL (1.2-3.4); Absolute Monocyte Count 0.35 10^3/uL (0.1-0.8); Absolute Neutrophil Count 1.17 10^3/uL (1.2-6.7); Basophils % 1.8 %; Eosinophils % 0.7 %; HCT 29.5 % (40.0-50.0); HGB 10.1 g/dL (13.5-17.5); Immature Grans % 3.6 %; Lymphocytes % 38.8 %; MCH 32.1 pg (27.0-33.0); MCHC 34.2 % (32.0-36.0); MCV 94 fL (80-95); Monocytes % 12.7 %; Neutrophils % 42.4 %; Platelet Count 103 10^3/uL (130-400); RBC 3.15 10^6/uL (4.36-5.78); RDW 14.5 % (11.8-14.1); RDW-SD 48.7 fL; WBC 2.76 10^3/uL (4.4-10.8)
[2024-01-17 08:29] LABS: ALT 67 U/L (16-63); AST 42 U/L (15-37); Alkaline Phosphatase 77 U/L (46-116); Anion Gap 6.2 mmol/L (3-11); BUN 19 mg/dL (7-18); Bilirubin, Total 0.31 mg/dL (0.2-1.0); CO2 26.8 mmol/L (21.0-32.0); CREATININE 0.9 mg/dL (0.70-1.30); Calcium 8.4 mg/dL (8.5-10.1); Chloride 107 mmol/L (98-107); Estimated GFR 95.37 (mL/min/1.73m2); Glucose 110 mg/dL (74-106); Potassium 3.7 mmol/L (3.5-5.1); Sodium 140 mmol/L (136-145); Total Protein 6.6 g/dL (6.4-8.2)
[2024-01-17 14:43] VITALS: BP 134/71; PULSE 56; RESP 18; TEMP 37.2
[2024-01-31 08:22] LABS: Abs Immature Grans 0.05 10^3/uL (0.0-0.06); Absolute Basophil Count 0.04 10^3/uL (0.0-0.2); Absolute Eosinophil Count 0.16 10^3/uL (0.0-0.7); Absolute Lymphocyte Count 0.99 10^3/uL (1.2-3.4); Absolute Monocyte Count 1.03 10^3/uL (0.1-0.8); Absolute Neutrophil Count 2.12 10^3/uL (1.2-6.7); Basophils % 0.9 %; Eosinophils % 3.6 %; HCT 31.4 % (40.0-50.0); HGB 10.3 g/dL (13.5-17.5); Immature Grans % 1.1 %; Lymphocytes % 22.6 %; MCH 32.3 pg (27.0-33.0); MCHC 32.8 % (32.0-36.0); MCV 98 fL (80-95); MPV 9.1 fL (8.0-11.0); Monocytes % 23.5 %; Neutrophils % 48.3 %; Platelet Count 311 10^3/uL (130-400); RBC 3.19 10^6/uL (4.36-5.78); RDW 17.5 % (11.8-14.1); RDW-SD 63.7 fL; WBC 4.39 10^3/uL (4.4-10.8)
[2024-01-31] MEDS: Normal Saline Flush 10 ML SYR IVP (08:31)
[2024-01-31 08:43] LABS: ALT 28 U/L (16-63); AST 25 U/L (15-37); Alkaline Phosphatase 79 U/L (46-116); Anion Gap 6.9 mmol/L (3-11); BUN 11 mg/dL (7-18); Bilirubin, Total 0.41 mg/dL (0.2-1.0); CO2 26.1 mmol/L (21.0-32.0); Calcium 8.3 mg/dL (8.5-10.1); Chloride 108 mmol/L (98-107); Estimated GFR 84.05 (mL/min/1.73m2); Glucose 120 mg/dL (74-106); Potassium 3.8 mmol/L (3.5-5.1); Sodium 141 mmol/L (136-145); Total Protein 6.4 g/dL (6.4-8.2)
[2024-01-31 21:09] LABS: CA 19-9 <2 U/mL (<35)
== END 2024-02-03 23:59 | disposition home or self-care (01) ==
LOC: INF 01:34
PROVIDERS: Visit Provider Internal Medicine Hematology & Oncology
DX: C79.9 Secondary malignant neoplasm of unspecified site (principal); C25.9 Malignant neoplasm of pancreas, unspecified
CPT/HCPCS: 36591; 80053; 85025; 86301

== ENCOUNTER 2024-02-28 00:40 | Outpatient (RCR) | payer BC, SELFPAY ==
[2024-02-04 00:12] VITALS: BP 134/71; PULSE 56; RESP 18; TEMP 37.2
[2024-02-07] MEDS: Normal Saline Flush 10 ML SYR IVP (08:05)
[2024-02-07 08:53] LABS: Abs Immature Grans 0.17 10^3/uL (0.0-0.06); Absolute Eosinophil Count 0.08 10^3/uL (0.0-0.7); Absolute Lymphocyte Count 1.07 10^3/uL (1.2-3.4); Basophils % 2.8 %; Eosinophils % 2.3 %; HCT 29.6 % (40.0-50.0); HGB 9.7 g/dL (13.5-17.5); Immature Grans % 4.8 %; Lymphocytes % 30.4 %; MCH 32.3 pg (27.0-33.0); MCHC 32.8 % (32.0-36.0); MCV 99 fL (80-95); MPV 9.8 fL (8.0-11.0); Neutrophils % 42.7 %; Nucleated RBC 0.6 % (0.0-0.3); Platelet Count 240 10^3/uL (130-400); RDW 16.6 % (11.8-14.1); RDW-SD 59.4 fL; WBC 3.52 10^3/uL (4.4-10.8)
[2024-02-07 09:26] LABS: ALT 33 U/L (16-63); AST 31 U/L (15-37); Albumin 2.9 g/dL (3.4-5.0); Alkaline Phosphatase 76 U/L (46-116); Anion Gap 7.2 mmol/L (3-11); BUN 12 mg/dL (7-18); Bilirubin, Total 0.26 mg/dL (0.2-1.0); CO2 27.8 mmol/L (21.0-32.0); Calcium 8.6 mg/dL (8.5-10.1); Chloride 108 mmol/L (98-107); Estimated GFR 84.05 (mL/min/1.73m2); Glucose 102 mg/dL (74-106); Sodium 143 mmol/L (136-145); Total Protein 6.6 g/dL (6.4-8.2)
[2024-02-28] MEDS: Normal Saline Flush 10 ML SYR IVP (09:34)
[2024-02-28 09:40] LABS: Abs Immature Grans 0.05 10^3/uL (0.0-0.06); Absolute Basophil Count 0.08 10^3/uL (0.0-0.2); Absolute Eosinophil Count 0.14 10^3/uL (0.0-0.7); Absolute Lymphocyte Count 1.37 10^3/uL (1.2-3.4); Absolute Neutrophil Count 3.66 10^3/uL (1.2-6.7); Basophils % 1.3 %; Eosinophils % 2.2 %; HCT 34.2 % (40.0-50.0); HGB 11.3 g/dL (13.5-17.5); Immature Grans % 0.8 %; Lymphocytes % 21.7 %; MCH 32.7 pg (27.0-33.0); MCV 99 fL (80-95); MPV 9.3 fL (8.0-11.0); Monocytes % 15.9 %; Neutrophils % 58.1 %; Platelet Count 301 10^3/uL (130-400); RBC 3.46 10^6/uL (4.36-5.78); RDW 15.2 % (11.8-14.1); RDW-SD 55.9 fL
[2024-02-28 10:10] LABS: ALT 19 U/L (16-63); AST 22 U/L (15-37); Albumin 3.1 g/dL (3.4-5.0); Alkaline Phosphatase 79 U/L (46-116); Anion Gap 5.7 mmol/L (3-11); BUN 23 mg/dL (7-18); Bilirubin, Total 0.43 mg/dL (0.2-1.0); CO2 26.3 mmol/L (21.0-32.0); Calcium 8.5 mg/dL (8.5-10.1); Chloride 109 mmol/L (98-107); Estimated GFR 84.05 (mL/min/1.73m2); Glucose 121 mg/dL (74-106); Potassium 4.1 mmol/L (3.5-5.1); Sodium 141 mmol/L (136-145); Total Protein 6.6 g/dL (6.4-8.2)
[2024-02-28 18:29] LABS: CA 19-9 <2 U/mL (<35)
== END 2024-03-05 23:59 | disposition home or self-care (01) ==
LOC: INF 00:40
PROVIDERS: Visit Provider Internal Medicine Hematology & Oncology
DX: C79.9 Secondary malignant neoplasm of unspecified site (principal); C25.9 Malignant neoplasm of pancreas, unspecified; Z45.2 Encounter for adjustment and management of vascular access device
CPT/HCPCS: 36591; 80053; 96523; 85025; 86301

== ENCOUNTER 2024-03-26 08:30 | Outpatient (RCR) | payer BC, SELFPAY ==
[2024-03-06 00:08] VITALS: BP 134/71; PULSE 56; RESP 18; TEMP 37.2
[2024-03-12] MEDS: Normal Saline Flush 10 ML SYR IVP (08:48)
[2024-03-12 08:49] LABS: Abs Immature Grans 0.03 10^3/uL (0.0-0.06); Absolute Basophil Count 0.03 10^3/uL (0.0-0.2); Absolute Eosinophil Count 0.14 10^3/uL (0.0-0.7); Absolute Lymphocyte Count 1.21 10^3/uL (1.2-3.4); Absolute Monocyte Count 1.07 10^3/uL (0.1-0.8); Absolute Neutrophil Count 3.58 10^3/uL (1.2-6.7); Basophils % 0.5 %; Eosinophils % 2.3 %; HCT 32.5 % (40.0-50.0); Immature Grans % 0.5 %; MCH 32.6 pg (27.0-33.0); MCHC 33.8 % (32.0-36.0); MCV 96 fL (80-95); MPV 9.6 fL (8.0-11.0); Monocytes % 17.7 %; Platelet Count 173 10^3/uL (130-400); RBC 3.37 10^6/uL (4.36-5.78); RDW 14.8 % (11.8-14.1); RDW-SD 52.9 fL; WBC 6.06 10^3/uL (4.4-10.8)
[2024-03-12 09:07] LABS: ALT 18 U/L (16-63); AST 22 U/L (15-37); Alkaline Phosphatase 67 U/L (46-116); Anion Gap 7.5 mmol/L (3-11); BUN 20 mg/dL (7-18); Bilirubin, Total 0.39 mg/dL (0.2-1.0); CO2 25.5 mmol/L (21.0-32.0); CREATININE 1.3 mg/dL (0.70-1.30); Calcium 8.7 mg/dL (8.5-10.1); Chloride 111 mmol/L (98-107); Estimated GFR 61.35 (mL/min/1.73m2); Glucose 97 mg/dL (74-106); Sodium 144 mmol/L (136-145); Total Protein 6.6 g/dL (6.4-8.2)
[2024-03-26] MEDS: Normal Saline Flush 10 ML SYR IVP (08:38)
[2024-03-26 09:12] LABS: Abs Immature Grans 0.01 10^3/uL (0.0-0.06); Absolute Basophil Count 0.04 10^3/uL (0.0-0.2); Absolute Eosinophil Count 0.16 10^3/uL (0.0-0.7); Absolute Lymphocyte Count 1.25 10^3/uL (1.2-3.4); Absolute Neutrophil Count 2.34 10^3/uL (1.2-6.7); Basophils % 0.9 %; Eosinophils % 3.4 %; HCT 30.6 % (40.0-50.0); HGB 10.3 g/dL (13.5-17.5); Immature Grans % 0.2 %; Lymphocytes % 26.6 %; MCH 32.8 pg (27.0-33.0); MCHC 33.7 % (32.0-36.0); MCV 98 fL (80-95); MPV 9.8 fL (8.0-11.0); Monocytes % 19.1 %; Neutrophils % 49.8 %; Platelet Count 204 10^3/uL (130-400); RBC 3.14 10^6/uL (4.36-5.78); RDW 14.6 % (11.8-14.1); RDW-SD 52.5 fL
[2024-03-26 09:33] LABS: ALT 18 U/L (16-63); AST 22 U/L (15-37); Alkaline Phosphatase 72 U/L (46-116); Anion Gap 6.4 mmol/L (3-11); BUN 24 mg/dL (7-18); Bilirubin, Total 0.38 mg/dL (0.2-1.0); CO2 26.6 mmol/L (21.0-32.0); CREATININE 1.2 mg/dL (0.70-1.30); Calcium 8.3 mg/dL (8.5-10.1); Chloride 108 mmol/L (98-107); Estimated GFR 67.53 (mL/min/1.73m2); Glucose 95 mg/dL (74-106); Potassium 3.7 mmol/L (3.5-5.1); Sodium 141 mmol/L (136-145); Total Protein 6.5 g/dL (6.4-8.2)
[2024-03-27 10:37] LABS: CA 19-9 <2 U/mL (<35)
== END 2024-04-04 23:59 | disposition home or self-care (01) ==
LOC: INF 08:30
PROVIDERS: Visit Provider Internal Medicine Hematology & Oncology
DX: C79.9 Secondary malignant neoplasm of unspecified site (principal); C25.9 Malignant neoplasm of pancreas, unspecified; Z45.2 Encounter for adjustment and management of vascular access device
CPT/HCPCS: 36591; 80053; 96523; 85025; 86301

== ENCOUNTER 2024-04-09 02:53 | Outpatient (RCR) | payer BC, SELFPAY ==
[2024-04-05 00:04] VITALS: BP 134/71; PULSE 56; RESP 18; TEMP 37.2
[2024-04-09] MEDS: Normal Saline Flush 10 ML SYR IVP (12:33)
[2024-04-09 13:04] LABS: Abs Immature Grans 0.03 10^3/uL (0.0-0.06); Absolute Basophil Count 0.03 10^3/uL (0.0-0.2); Absolute Eosinophil Count 0.05 10^3/uL (0.0-0.7); Absolute Lymphocyte Count 1.01 10^3/uL (1.2-3.4); Absolute Monocyte Count 0.97 10^3/uL (0.1-0.8); Absolute Neutrophil Count 3.89 10^3/uL (1.2-6.7); Basophils % 0.5 %; Eosinophils % 0.8 %; HCT 28.5 % (40.0-50.0); HGB 9.6 g/dL (13.5-17.5); Immature Grans % 0.5 %; Lymphocytes % 16.9 %; MCH 32.5 pg (27.0-33.0); MCHC 33.7 % (32.0-36.0); MCV 97 fL (80-95); Monocytes % 16.2 %; Neutrophils % 65.1 %; Platelet Count 153 10^3/uL (130-400); RBC 2.95 10^6/uL (4.36-5.78); RDW 15.7 % (11.8-14.1); RDW-SD 55.4 fL; WBC 5.98 10^3/uL (4.4-10.8)
[2024-04-09 13:25] LABS: ALT 22 U/L (16-63); AST 26 U/L (15-37); Albumin 3.2 g/dL (3.4-5.0); Alkaline Phosphatase 78 U/L (46-116); Anion Gap 8.6 mmol/L (3-11); BUN 27 mg/dL (7-18); Bilirubin, Total 0.54 mg/dL (0.2-1.0); CO2 25.4 mmol/L (21.0-32.0); CREATININE 1.3 mg/dL (0.70-1.30); Calcium 8.3 mg/dL (8.5-10.1); Chloride 109 mmol/L (98-107); Estimated GFR 61.35 (mL/min/1.73m2); Glucose 92 mg/dL (74-106); Potassium 4.1 mmol/L (3.5-5.1); Sodium 143 mmol/L (136-145); Total Protein 6.6 g/dL (6.4-8.2)
[2024-04-10 09:43] LABS: CA 19-9 7 U/mL (<35)
== END 2024-05-05 23:59 | disposition home or self-care (01) ==
LOC: INF 02:53
PROVIDERS: Visit Provider Internal Medicine Hematology & Oncology
DX: C25.9 Malignant neoplasm of pancreas, unspecified (principal); C79.9 Secondary malignant neoplasm of unspecified site; Z45.2 Encounter for adjustment and management of vascular access device
CPT/HCPCS: 36591; 80053; 85025; 86301

== ENCOUNTER 2024-05-28 03:37 | Outpatient (RCR) | payer BC, SELFPAY ==
[2024-05-06 00:20] VITALS: BP 134/71; PULSE 56; RESP 18; TEMP 37.2
[2024-05-07] MEDS: Normal Saline Flush 10 ML SYR IVP (10:44)
[2024-05-07 11:02] LABS: Abs Immature Grans 0.04 10^3/uL (0.0-0.06); Absolute Basophil Count 0.04 10^3/uL (0.0-0.2); Absolute Eosinophil Count 0.16 10^3/uL (0.0-0.7); Absolute Lymphocyte Count 1.72 10^3/uL (1.2-3.4); Absolute Monocyte Count 0.64 10^3/uL (0.1-0.8); Absolute Neutrophil Count 4.61 10^3/uL (1.2-6.7); Basophils % 0.6 %; Eosinophils % 2.2 %; HCT 34.7 % (40.0-50.0); HGB 11.3 g/dL (13.5-17.5); Immature Grans % 0.6 %; Lymphocytes % 23.9 %; MCH 32.1 pg (27.0-33.0); MCHC 32.6 % (32.0-36.0); MCV 99 fL (80-95); MPV 10.3 fL (8.0-11.0); Monocytes % 8.9 %; Neutrophils % 63.8 %; Platelet Count 143 10^3/uL (130-400); RBC 3.52 10^6/uL (4.36-5.78); RDW 13.9 % (11.8-14.1); RDW-SD 50.8 fL; WBC 7.21 10^3/uL (4.4-10.8)
[2024-05-07 11:33] LABS: ALT 23 U/L (16-63); AST 22 U/L (15-37); Albumin 3.2 g/dL (3.4-5.0); Alkaline Phosphatase 52 U/L (46-116); Anion Gap 6.5 mmol/L (3-11); BUN 24 mg/dL (7-18); Bilirubin, Total 0.36 mg/dL (0.2-1.0); CO2 28.5 mmol/L (21.0-32.0); CREATININE 1.1 mg/dL (0.70-1.30); Calcium 8.4 mg/dL (8.5-10.1); Chloride 108 mmol/L (98-107); Estimated GFR 74.96 (mL/min/1.73m2); Glucose 90 mg/dL (74-106); Potassium 3.9 mmol/L (3.5-5.1); Sodium 143 mmol/L (136-145); Total Protein 6.5 g/dL (6.4-8.2)
[2024-05-08 09:43] LABS: CA 19-9 8 U/mL (<35)
[2024-05-15] MEDS: Normal Saline Flush 10 ML SYR IVP (10:31)
[2024-05-15 10:43] LABS: Abs Immature Grans 0.04 10^3/uL (0.0-0.06); Absolute Basophil Count 0.05 10^3/uL (0.0-0.2); Absolute Eosinophil Count 0.16 10^3/uL (0.0-0.7); Absolute Lymphocyte Count 1.78 10^3/uL (1.2-3.4); Absolute Monocyte Count 0.85 10^3/uL (0.1-0.8); Absolute Neutrophil Count 4.44 10^3/uL (1.2-6.7); Basophils % 0.7 %; Eosinophils % 2.2 %; HCT 36.1 % (40.0-50.0); HGB 12.1 g/dL (13.5-17.5); Immature Grans % 0.5 %; Lymphocytes % 24.3 %; MCH 32.4 pg (27.0-33.0); MCHC 33.5 % (32.0-36.0); MCV 97 fL (80-95); MPV 9.5 fL (8.0-11.0); Monocytes % 11.6 %; Neutrophils % 60.7 %; Platelet Count 182 10^3/uL (130-400); RBC 3.73 10^6/uL (4.36-5.78); RDW 13.1 % (11.8-14.1); RDW-SD 46.7 fL; WBC 7.32 10^3/uL (4.4-10.8)
[2024-05-15 10:59] LABS: ALT 23 U/L (16-63); AST 21 U/L (15-37); Albumin 3.6 g/dL (3.4-5.0); Alkaline Phosphatase 70 U/L (46-116); Anion Gap 6.5 mmol/L (3-11); BUN 37 mg/dL (7-18); Bilirubin, Total 0.33 mg/dL (0.2-1.0); CO2 28.5 mmol/L (21.0-32.0); CREATININE 1.4 mg/dL (0.70-1.30); Calcium 8.8 mg/dL (8.5-10.1); Chloride 108 mmol/L (98-107); Estimated GFR 56.13 (mL/min/1.73m2); Glucose 88 mg/dL (74-106); Potassium 4.7 mmol/L (3.5-5.1); Sodium 143 mmol/L (136-145); Total Protein 7.1 g/dL (6.4-8.2)
[2024-05-15 19:06] LABS: CA 19-9 <2 U/mL (<35)
[2024-05-17] MEDS: Normal Saline Flush 10 ML SYR IVP (12:26)
[2024-05-28] MEDS: Normal Saline Flush 10 ML SYR IVP (10:33)
[2024-05-28 10:40] LABS: Abs Immature Grans 0.01 10^3/uL (0.0-0.06); Absolute Basophil Count 0.04 10^3/uL (0.0-0.2); Absolute Eosinophil Count 0.07 10^3/uL (0.0-0.7); Absolute Lymphocyte Count 1.54 10^3/uL (1.2-3.4); Absolute Monocyte Count 0.71 10^3/uL (0.1-0.8); Absolute Neutrophil Count 3.36 10^3/uL (1.2-6.7); Basophils % 0.7 %; Eosinophils % 1.2 %; HCT 32.2 % (40.0-50.0); HGB 11.4 g/dL (13.5-17.5); Immature Grans % 0.2 %; Lymphocytes % 26.9 %; MCHC 35.4 % (32.0-36.0); MCV 90 fL (80-95); MPV 10.1 fL (8.0-11.0); Monocytes % 12.4 %; Neutrophils % 58.6 %; Platelet Count 130 10^3/uL (130-400); RBC 3.56 10^6/uL (4.36-5.78); RDW 12.4 % (11.8-14.1); RDW-SD 41.2 fL; WBC 5.73 10^3/uL (4.4-10.8)
[2024-05-28 11:13] LABS: ALT 29 U/L (16-63); AST 25 U/L (15-37); Albumin 3.4 g/dL (3.4-5.0); Alkaline Phosphatase 75 U/L (46-116); Anion Gap 5.4 mmol/L (3-11); BUN 30 mg/dL (7-18); Bilirubin, Total 0.31 mg/dL (0.2-1.0); CO2 28.6 mmol/L (21.0-32.0); CREATININE 1.1 mg/dL (0.70-1.30); Calcium 8.7 mg/dL (8.5-10.1); Chloride 108 mmol/L (98-107); Estimated GFR 74.96 (mL/min/1.73m2); Glucose 98 mg/dL (74-106); Potassium 4.2 mmol/L (3.5-5.1); Sodium 142 mmol/L (136-145)
[2024-05-29 10:12] LABS: CA 19-9 <2 U/mL (<35)
== END 2024-06-05 23:59 | disposition home or self-care (01) ==
LOC: INF 03:37
PROVIDERS: Nurse Practitioner Family; Visit Provider Internal Medicine Hematology & Oncology
DX: C79.9 Secondary malignant neoplasm of unspecified site (principal); C25.0 Malignant neoplasm of head of pancreas; Z45.2 Encounter for adjustment and management of vascular access device
CPT/HCPCS: 36591; 80053; 96523; 85025; 86301

== ENCOUNTER 2024-05-28 14:04 | Emergency (ER) | payer BC, SELFPAY ==
[2024-05-28] VITALS (19 sets, daily range): BP systolic 140–165; BP diastolic 60–111; PULSE 37–84; RESP 8–20; TEMP 36.6; O2SAT 92–100
--- NOTE | 2024-05-28 14:00 | RT.EKG_ITS ---
APPROVED REPORT Exam: Resting ECG Reason for Exam: elevated heart rate Patient Location: E HR:70 bpm ECG Measurements Heart Rate 70 AXIS TN 215 P 29 QRSd 81 QRS 73 QT 421 T 79 QTc 456 Conclusion Sinus rhythm, rate 70 Multiple PVCs No STEMI No priors available for comparison
--- NOTE | 2024-05-28 14:19 | ED.GENADUL_ITS ---
Discharge Plan Disposition Patient Disposition: Home Condition: Stable Discharge Details Clinical Impression: Chemotherapy adverse reaction, Frequent PVCs, Anemia, Pancreatic cancer Primary Care Provider: None,None ED Provider: Radha Ashraf Discharge Instructions Instructions: Arrhythmias (DC) Additional Instructions: You were seen in the emergency department today for evaluation of a hypersensitivity reaction that occurred during chemo. You received medications and the reaction had been improved prior to arrival, but you did have evidence of some irregular heartbeats, known as PVCs. In our department you had a full physical examination performed, had laboratory studies that showed mild anemia but no other significant concerning findings to explain your heart rhythm, and had no sign of heart attack. It is safe for you to go home but I do recommend that you follow-up with your primary care provider to discuss next steps in workup of your PVCs, which may include repeat EKGs, Holter monitors, and/or referral to cardiology. If you have a recurrence of any of your symptoms you need to return to the emergency department for reevaluation. Your oncologist will discuss with you further any options or changes that need to be made to your chemotherapy regimen. Please follow-up with your primary care provider in the next few days to discuss this visit and any symptoms that change, worsen, or persist. Thank you for allowing us to be part of your care. Discharge Data Discharge Date/Time-TO BE ENTERED AT DEPARTURE: 05/28/24 16:52 HPI General Date/Time Provider Initiated Documentation: 05/28/24 14:14 . Limitations to Documentation: no limitations . Information obtained by: patient, RN/MD, EMS and old records reviewed . HPI Narrative: HPI: This is a 63-year-old male patient with a past medical history significant for pancreatic cancer who is presenting for evaluation after an infusion reaction. The patient was at the cancer center this afternoon, started his oxaliplatin infusion, and about 20 minutes into the infusion had an episode of vomiting, associated with flushing/diaphoresis, and had a notable change in his heart rhythm including ectopy and a decrease in his heart rate. He was noted to be hypertensive, and received Benadryl and Pepcid at 1335 by the cancer center. Given the change in his cardiac rhythm he was sent by EMS to our facility for further evaluation. The patient reports that he is currently feeling back to his baseline, and has no residual symptoms. He states that this is the second round of chemo with the specific drug, though he has taken it in the past without difficulties. He has never had a drug reaction like this before. He currently denies any pain, states he never had any difficulty breathing or sensation of throat swelling, states that he feels that his voice is at his baseline. Denies rashes, no longer feels nausea. Has no personal history of other allergies. Exam: Gen: Awake and alert, in no apparent distress HEENT: Non-icteric sclera. Speaking clear sentences, posterior pharynx without edema or swelling, no stridor Neck: Supple Lungs: No apparent respiratory distress, normal respiratory effort. Lung sounds clear and equal bilaterally with no wheezing, rhonchi, rales CV: Appears well perfused, heart with regular rate, regular rhythm though ectopy is appreciated on telemetry. Strong distal pulses Abdomen: Non-distended, soft, nontender MSK: Moves 4 extremities without apparent limitation in ROM Skin: Visualized skin without rashes, cyanosis. Neuro: Normal Gait, no obvious focal deficits or facial asymmetry. Speaks in full, clear sentences. Psych: Appropriate for situation. MDM: This is a 63-year-old male patient presenting for evaluation after an infusion reaction. My differential includes but is not limited to drug reaction, certainly considered allergic reaction and anaphylaxis, though the patient has reassuringly not required epinephrine or have any evidence for airway involvement or swelling. I considered cardiac arrhythmia, ACS, metabolic and electrolyte derangements, kidney injury. The patient is reassuringly asymptomatic at this time, we will monitor him in the emergency department to ensure that his symptoms do not recur. I will obtain basic labs to include CBC, CMP, magnesium, and troponin. I obtained a twelve-lead EKG, which shows a sinus rhythm with PVCs, but no evidence for STEMI. ED Course: While monitored on telemetry the patient did have intermittent bigeminy with no palpitations, hemodynamic instability, or other hemodynamic change. I reviewed his labs, which showed no leukocytosis, mild anemia and thrombocytopenia. Chemistry panel is without significant electrolyte derangement, slight elevation in the BUN to 29 with no comorbid elevation in creatinine, no evidence of liver dysfunction. Troponins were trended and had no interval government contracts manager the 1 hour per our protocol. The patient reports no recurrence of symptoms. I did review the literature for oxaliplatin, and do not note that bigeminy and PVCs are frequently reported adverse event. As the patient is asymptomatic and has had a reassuring workup without evidence of ischemia, electrolyte abnormalities, interval abnormalities or other concerning findings I feel that this is appropriate to workup in the outpatient environment. After 2 hours of observation from time of medications the patient's hypersensitivity reaction seems to have resolved and he had no evidence for worsening symptoms, anaphylaxis, or airway compromise. At this time, the patient has had a full medical evaluation and is safe for discharge to home. Th ey are hemodynamically stable, ambulatory, and tolerating PO. They are understanding of the follow-up plan and return precautions. They left our facility without incident. Radha Ashraf MD Related Data Allergies Allergy/AdvReac Type Severity Reaction Status Date / Time No Known Allergies Allergy Verified 05/28/24 14:15 General Stated Complaint: Allergic ANAYELI: 3 Course Vital Signs Vital signs: Vital Signs Temperature 36.6 C 05/28/24 14:05 Pulse 73 05/28/24 14:05 Respiratory Rate 14 05/28/24 14:05 Blood Pressure 165/85 H 05/28/24 14:05 Pulse Oximetry 100 05/28/24 14:05 Temperature 36.6 C 05/28/24 14:05 Pulse 73 05/28/24 14:05 Respiratory Rate 14 05/28/24 14:05 Blood Pressure 165/85 H 05/28/24 14:05 Blood Pressure Position Supine 05/28/24 14:05 Pulse Oximetry 100 05/28/24 14:05 Oxygen Delivery Method Room Air 05/28/24 14:05 Oxygen Flow Rate 0 05/28/24 14:05 Pain Level 0 05/28/24 14:05 Medical Decision Making Quality:SDOH Health Related Social Needs: No Data to Display PFSH All Active Problems (Updated 05/28/24 @ 16:04 by Radha Ashraf MD) Pancreatic cancer (Acute) Anemia (Chronic) Frequent PVCs (Acute) Chemotherapy adverse reaction (Acute) Social History Smoking/Tobacco Use Status: Never Smoking risk assessment performed?: Yes Drug use: Never Do you feel safe in your relationship?: Yes
[2024-05-28 14:33] LABS: Abs Immature Grans 0.03 10^3/uL (0.0-0.06); Absolute Basophil Count 0.02 10^3/uL (0.0-0.2); Absolute Eosinophil Count 0.04 10^3/uL (0.0-0.7); Absolute Lymphocyte Count 0.76 10^3/uL (1.2-3.4); Absolute Monocyte Count 0.23 10^3/uL (0.1-0.8); Absolute Neutrophil Count 5.21 10^3/uL (1.2-6.7); Basophils % 0.3 %; Eosinophils % 0.6 %; HCT 31.6 % (40.0-50.0); HGB 11.1 g/dL (13.5-17.5); Immature Grans % 0.5 %; Lymphocytes % 12.1 %; MCH 31.9 pg (27.0-33.0); MCHC 35.1 % (32.0-36.0); MCV 91 fL (80-95); MPV 9.8 fL (8.0-11.0); Monocytes % 3.7 %; Neutrophils % 82.8 %; Platelet Count 115 10^3/uL (130-400); RBC 3.48 10^6/uL (4.36-5.78); RDW 12.4 % (11.8-14.1); RDW-SD 41.1 fL; WBC 6.29 10^3/uL (4.4-10.8)
[2024-05-28 14:53] LABS: ALT 24 U/L (16-63); AST 23 U/L (15-37); Albumin 3.2 g/dL (3.4-5.0); Alkaline Phosphatase 70 U/L (46-116); Anion Gap 8.3 mmol/L (3-11); BUN 29 mg/dL (7-18); Bilirubin, Total 0.36 mg/dL (0.2-1.0); CO2 25.7 mmol/L (21.0-32.0); CREATININE 1.2 mg/dL (0.70-1.30); Calcium 8.5 mg/dL (8.5-10.1); Chloride 107 mmol/L (98-107); Estimated GFR 67.53 (mL/min/1.73m2); Glucose 121 mg/dL (74-106); Potassium 4.2 mmol/L (3.5-5.1); Sodium 141 mmol/L (136-145); Total Protein 6.6 g/dL (6.4-8.2); Troponin I 21 ng/L (<or=76)
[2024-05-28 15:45] LABS: Troponin I 22 ng/L (<or=76)
[2024-05-28] MEDS: Heparin 500 UNITS/5 ML SYRINGE (16:39)
== END 2024-05-28 16:52 | disposition home or self-care (01) ==
PROVIDERS: Emergency Provider Emergency Medicine
DX: R00.2 Palpitations (principal); R11.2 Nausea with vomiting, unspecified; T45.1X5A Adverse effect of antineoplastic and immunosuppressive drugs, initial encounter; C25.9 Malignant neoplasm of pancreas, unspecified; Y92.89 Other specified places as the place of occurrence of the external cause
CPT/HCPCS: 80053; 93005; 99284; 83735; 84484; 85025; 93010; J1642

== ENCOUNTER 2024-06-11 01:46 | Outpatient (RCR) | payer BC, SELFPAY ==
[2024-06-11 09:24] LABS: Abs Immature Grans 0.03 10^3/uL (0.0-0.06); Absolute Basophil Count 0.06 10^3/uL (0.0-0.2); Absolute Lymphocyte Count 1.64 10^3/uL (1.2-3.4); Basophils % 0.8 %; Eosinophils % 1.3 %; HCT 34.9 % (40.0-50.0); HGB 11.6 g/dL (13.5-17.5); Immature Grans % 0.4 %; Lymphocytes % 20.7 %; MCH 31.7 pg (27.0-33.0); MCHC 33.2 % (32.0-36.0); MCV 95 fL (80-95); MPV 10.2 fL (8.0-11.0); Monocytes % 11.3 %; Neutrophils % 65.5 %; Platelet Count 166 10^3/uL (130-400); RBC 3.66 10^6/uL (4.36-5.78); RDW 13.1 % (11.8-14.1); RDW-SD 45.3 fL; WBC 7.93 10^3/uL (4.4-10.8)
[2024-06-11] MEDS: Normal Saline Flush 10 ML SYR IVP (09:24)
[2024-06-11 09:46] LABS: ALT 27 U/L (16-63); AST 20 U/L (15-37); Albumin 3.4 g/dL (3.4-5.0); Alkaline Phosphatase 77 U/L (46-116); Anion Gap 5.2 mmol/L (3-11); BUN 23 mg/dL (7-18); Bilirubin, Total 0.31 mg/dL (0.2-1.0); CO2 29.8 mmol/L (21.0-32.0); CREATININE 1.3 mg/dL (0.70-1.30); Calcium 8.9 mg/dL (8.5-10.1); Chloride 107 mmol/L (98-107); Estimated GFR 61.35 (mL/min/1.73m2); Glucose 93 mg/dL (74-106); Potassium 4.4 mmol/L (3.5-5.1); Sodium 142 mmol/L (136-145); Total Protein 7.1 g/dL (6.4-8.2)
[2024-06-12 10:21] LABS: CA 19-9 9 U/mL (<35)
== END 2024-07-03 23:59 | disposition home or self-care (01) ==
LOC: INF 01:46
PROVIDERS: Nurse Practitioner Family; Visit Provider Internal Medicine Hematology & Oncology
DX: C25.0 Malignant neoplasm of head of pancreas (principal)
CPT/HCPCS: 36591; 80053; 85025; 86301

== ENCOUNTER 2024-09-01 00:04 | Outpatient (CLI) | payer BC, SELFPAY ==
--- NOTE | 2024-09-01 08:30 | DI.US_ITS ---
APPROVED REPORT EXAM: Comprehensive 2D, Doppler, and color-flow Echocardiogram Patient Location: Out-Patient Equipment Processor: Efren Gaytan RDCS (AE) Indications: Baseline echo prior to high risk medication use; history of pancreatic cancer with mets. Other Information Study Quality: Fair Conclusion Left ventricle is top normal in size. Normal wall thickness. EF is 50 to 55%. There are no segment al wall motion abnormalities Normal right ventricular size and function Both atria are normal in size There are no structural valvular abnormalities Ascending aorta measures 3.49 cm Estimated right ventricular systolic pressure is 31 mmHg Wall motion Left Ventricle Top normal size The overall left ventricular systolic function appears normal. There is normal left v entricular wall thickness. No segmental wall motion abnormalities There is no ventricular septal defe ct visualized. LVEF is 50-55%. Right Ventricle The right ventricle is normal size. The right ventricular systolic function is normal. Atria The left atrium size is normal. The right atrium size is normal. The interatrial septum is intact wit h no evidence for an atrial septal defect. Aortic Valve The aortic valve is normal in structure. Aortic valve is trileaflet. There is no aortic valvular sten osis. No aortic regurgitation is present. Mitral Valve The mitral valve is normal in structure. No evidence of mitral valve stenosis. Trace to mild mitral r egurgitation. Tricuspid Valve The tricuspid valve is normal in structure. There is no tricuspid valve stenosis. Trace tricuspid reg urgitation. The RVSP is 31.4 mmHg. Pulmonic Valve The pulmonary valve is normal in structure. There is no pulmonic valvular stenosis. There is no pulmo mj valvular regurgitation. Great Vessels The aortic root is normal in size. Ascending aorta is borderline normal in caliber. IVC is normal in size and collapses >50% with inspiration. Pericardium There is no pericardial effusion. 2D Dimensions IVSD d PLAX 0.86 cm M: 0.6-1.2 Ao Root d 2.91 cm M: 3.1 - 3.7 LVPW d PLAX 0.87 cm M: 0.6 - 1.2 Ao Asc Diam d 3.49 cm M: 2.6 - 3.4 LVID d PLAX 5.94 cm M: 4.2 - 5.8 Prox Ao Arch 3.1 cm LVDs 4.73 cm M: 2.5 - 4.0 LV EF Teichholz 41.0 % FS 20.43 % LV EDV (Teich) 176.1 mL LV ESV (Teich) 103.8 mL Stroke Vol Index (Teich) 35.43 M-Mode TAPSE 1.98 cm (M/F) >1.7 Auto EF LV EDV A4C 165.5 mL LV EDV A2C 162.3 mL LV EDV BP 168.2 mL LV ESV A4C 94.2 mL LV ESV A2C 92.0 mL LV ESV BP 94.4 mL LVEF(%) A4C 43.1 % LVEF(%) A2C 43.3 % LVEF(%) BP 43.9 % LV SV A4C 71.4 ml LV SV A2C 70.3 ml LV SV BP 73.8 ml LV CO A4C 5.2 L/min LV CO A2C 4.7 L/min LV CO BP 4.9 L/min HR A4C 72.58 BPM HR A2C 66.79 BPM LV EDV Index (BP) LA Volume LA Length A4C 5.6 cm LA Length A2C 5.5 cm LA Area A4C s 16.43 cm2 LA Area A2C s 16.77 cm2 LA Vol A4C A-L 41.21 mL LA Vol A2C A-L 43.71 mL LA Vol Biplane A-L 42.8 mL LA Vol/BSA A4C A-L LA Vol/BSA A2C A-L LA Vol/BSA BP A-L 21.0 mL/m2 LA Vol A4C MOD 37.1 mL LA Vol A2C MOD 41.4 mL LA Vol BP MOD 39.5 mL RA Volume RA Area A4C 11.7 cm2 RA ESV A4C (A-L) 27.6mL RA Vol/BSA A4C A-L RA Length A4C 4.2 cm RA ESV A4C (MOD) 26.5mL LV Diastology MV E' medial 0.077 (>0.07 m/s) MV E Vmax 0.70 (0.4-1.3 m/s) MV E/E' MED 9.12 (<14) MV A Vmax 0.65 (0.4-1.3 m/s) MV E' lateral 0.105 (>0.1 m/s) E/A Ratio 1.1 MV E/E' LAT 6.69 (<14) MV E' Average 0.091 m/s MV E/E'(average) 7.72 Aortic Valve AoV Vmax 1.25 m/s LVOT Vmax 0.89 m/s AoV Peak Grad 6.2 mmHg LVOT Peak Grad 3.2 mmHg AoV Area (Vmax) 2.51 cm2 LVOT VTI 0.221 m AoV VTI 0.316 m LVOT Mean Grad 2.2 mmHg AoV Mean Reese. 0.92 m/s LVOT SV 77.53 mL AoV Mean Grad 3.8 mmHg LVOT Diam s 2.10 cm AoV Area (VTI) 2.45 cm2 AV Regurg Peak Gr. 6.23 mmHg Velocity Ratio 0.71 Mitral Valve MV DT 157 (160-240 msec) Pulmonary Valve PV Vmax 1.07 (0.5-1.5 m/s) RVOT Vmax 0.48 m/s PV Peak Grad 4.6 mmHg RVOT Peak Gr. 0.9 mmHg PV Mean Reese 0.73 m/s RVOT VTI 0.098 m PV Mean Grad 2.4 mmHg RVOT Mean Gr. 0.5 mmHg Tricuspid Valve RA Pressure 3.00 mmHg TR Vmax 2.67 m/s TV S' 0.09 m/s TR Peak Grad 28.4 mmHg RVSP (TR) 31.4 mmHg
== END 2024-09-01 00:24 ==
LOC: DI 00:04
PROVIDERS: Visit Provider Internal Medicine Hematology & Oncology
DX: C25.9 Malignant neoplasm of pancreas, unspecified (principal); Z79.899 Other long term (current) drug therapy
CPT/HCPCS: 93306

== ENCOUNTER 2024-09-27 10:07 | Emergency (ER) | payer BC, SELFPAY ==
[2024-09-27 10:12] VITALS: BP 179/93; PULSE 68; RESP 16; TEMP 36.6; O2SAT 98
[2024-09-27] MEDS: Mupirocin 2% Oint. 22 GM TUBE (10:44)
--- NOTE | 2024-09-27 10:46 | ED.GENADUL_ITS ---
Discharge Plan Disposition Patient Disposition: Home Discharge Details Clinical Impression: Rash, Drug side effects Primary Care Provider: HUBER ASTORGA ED Provider: Roz Horton Home Meds and New Rx's Prescriptions: No Action Mekinist 2 mg tablet 2 mg PO DAILY Discharge Instructions Additional Instructions: The rash today appears consistent in appearance with a side effect known to be associated with your medication Mekinist. Recommendations include keeping your skin clean and using emollients like CeraVe or Eucerin. There is a small spot of irritation and on this spot I recommend using mupirocin ointment twice daily as provided. Please follow-up with your oncology team. Return to the emergency department if you develop fever, chills, any lesions inside of your mouth. HPI General Date/Time Provider Initiated Documentation: 09/27/24 10:19 . Limitations to Documentation: no limitations . Information obtained by: patient . HPI Narrative: 63-year-old gentleman with past medical history of stage IV pancreatic cancer recently started on a new medication called Mekinist presents for evaluation of rash. Reports that he was told by his oncology team that he would likely develop a rash as this is a common side effect of this medication. He reports that he has had the rash for the last 3 days. He noticed that it is localized to his face behind his ears and on his chest. He denies any sore throat, voice change, cough or shortness of breath. He states that the rash is not painful or itchy. He has reached out to his oncology team but has not heard back from them yet. He states that he took a Benadryl this morning without significant change in the rash. Related Data Home Medications ?Medication ?Instructions ?Recorded ?Confirmed trametinib 2 mg tablet (Mekinist) 2 mg PO DAILY 09/27/24 09/27/24 Allergies Allergy/AdvReac Type Severity Reaction Status Date / Time No Known Allergies Allergy Verified 09/27/24 10:17 General Stated Complaint: RashLesion ANAYELI: 3 Exam Narrative Exam Narrative: Review of Systems: All systems reviewed & are unremarkable except as noted in HPI and below Well-developed, no acute distress Unlabored respiratory effort Pustular erythematous rash noted on the bridge of nose and bilateral cheeks, there is some located on the congregational areas and behind the ears extending back on the nape of the neck, there is some noted on the chest as well. This is noted bilaterally crossing dermatomes. There is no apparent cellulitis, skin sloughing, signs of abscess No intraoral lesions Course Vital Signs Vital signs: Vital Signs Temperature 36.6 C 09/27/24 10:12 Pulse 68 09/27/24 10:12 Respiratory Rate 16 09/27/24 10:12 Blood Pressure 179/93 H 09/27/24 10:12 Pulse Oximetry 98 09/27/24 10:12 Temperature 36.6 C 09/27/24 10:12 Temperature Source Oral 09/27/24 10:12 Pulse 68 09/27/24 10:12 Respiratory Rate 16 09/27/24 10:12 Blood Pressure 179/93 H 09/27/24 10:12 Blood Pressure Position Sitting 09/27/24 10:12 Pulse Oximetry 98 09/27/24 10:12 Oxygen Delivery Method Room Air 09/27/24 10:12 Oxygen Flow Rate 0 09/27/24 10:12 Pain Level 0 09/27/24 10:12 Medical Decision Making Emergent evaluation of a rash. Initial differential includes medication reaction, medication side effect, contact dermatitis. There is no evidence of systemic infection. I do not suspect SJS or other more serious rash. There were no intraoral lesions or signs of anaphylaxis. Based on the drug website, this is a well-known side effect. The recommendations are a moisturizing creams, sun avoidance. The patient has a small area where he scratched and I will provide mupirocin ointment to use for infection prevention. Return precautions advised to the patient including any oral lesion development, fever or chills or respiratory symptoms. Should follow-up closely with oncology team. Quality:SDOH Health Related Social Needs: No Data to Display PFSH All Active Problems (Updated 09/27/24 @ 10:38 by Roz Horton MD) Drug side effects (Acute) Rash (Acute) Social History Smoking/Tobacco Use Status: Never Smoking risk assessment performed?: Yes Alcohol Intake: current Alcohol Intake frequency: a few times a month Alcohol type: beer Drug use: Never Do you feel safe in your relationship?: Yes
== END 2024-09-27 10:48 | disposition home or self-care (01) ==
PROVIDERS: Emergency Provider Emergency Medicine; PCP Nurse Practitioner Family
DX: L25.8 Unspecified contact dermatitis due to other agents (principal); T45.1X5A Adverse effect of antineoplastic and immunosuppressive drugs, initial encounter; C25.9 Malignant neoplasm of pancreas, unspecified
CPT/HCPCS: 99283

== ENCOUNTER 2024-10-30 00:39 | Outpatient (RCR) | payer BC, SELFPAY ==
[2024-10-08 09:11] LABS: Abs Immature Grans 0.02 10^3/uL (0.0-0.06); Absolute Basophil Count 0.03 10^3/uL (0.0-0.2); Absolute Lymphocyte Count 1.76 10^3/uL (1.2-3.4); Absolute Monocyte Count 0.65 10^3/uL (0.1-0.8); Absolute Neutrophil Count 4.17 10^3/uL (1.2-6.7); Basophils % 0.4 %; Eosinophils % 1.5 %; HCT 34.1 % (40.0-50.0); HGB 11.4 g/dL (13.5-17.5); Immature Grans % 0.3 %; Lymphocytes % 26.2 %; MCH 30.1 pg (27.0-33.0); MCHC 33.4 % (32.0-36.0); MCV 90 fL (80-95); MPV 8.6 fL (8.0-11.0); Monocytes % 9.7 %; Neutrophils % 61.9 %; Platelet Count 202 10^3/uL (130-400); RBC 3.79 10^6/uL (4.36-5.78); RDW 12.6 % (11.8-14.1); RDW-SD 41.5 fL; WBC 6.73 10^3/uL (4.4-10.8)
[2024-10-08] MEDS: Normal Saline Flush 10 ML SYR IVP (09:12)
[2024-10-08 09:27] LABS: ALT 21 U/L (16-63); AST 23 U/L (15-37); Albumin 3.4 g/dL (3.4-5.0); Alkaline Phosphatase 89 U/L (46-116); BUN 30 mg/dL (7-18); Bilirubin, Total 0.3 mg/dL (0.2-1.0); CREATININE 1.1 mg/dL (0.70-1.30); Calcium 8.7 mg/dL (8.5-10.1); Chloride 104 mmol/L (98-107); Estimated GFR 74.96 (mL/min/1.73m2); Glucose 93 mg/dL (74-106); Potassium 3.8 mmol/L (3.5-5.1); Sodium 138 mmol/L (136-145); Total Protein 7.4 g/dL (6.4-8.2)
[2024-10-09 09:13] LABS: CA 19-9 3 U/mL (<35)
[2024-10-30] MEDS: Normal Saline Flush 10 ML SYR IVP (08:12)
[2024-10-30 08:13] LABS: Abs Immature Grans 0.02 10^3/uL (0.0-0.06); Absolute Basophil Count 0.03 10^3/uL (0.0-0.2); Absolute Eosinophil Count 0.09 10^3/uL (0.0-0.7); Absolute Lymphocyte Count 2.02 10^3/uL (1.2-3.4); Absolute Monocyte Count 0.46 10^3/uL (0.1-0.8); Absolute Neutrophil Count 3.55 10^3/uL (1.2-6.7); Basophils % 0.5 %; Eosinophils % 1.5 %; HCT 36.5 % (40.0-50.0); HGB 12.2 g/dL (13.5-17.5); Immature Grans % 0.3 %; Lymphocytes % 32.7 %; MCH 30.7 pg (27.0-33.0); MCHC 33.4 % (32.0-36.0); MCV 92 fL (80-95); MPV 9.2 fL (8.0-11.0); Monocytes % 7.5 %; Neutrophils % 57.5 %; Platelet Count 163 10^3/uL (130-400); RBC 3.97 10^6/uL (4.36-5.78); RDW 13.5 % (11.8-14.1); WBC 6.17 10^3/uL (4.4-10.8)
[2024-10-30 08:39] LABS: ALT 28 U/L (16-63); AST 35 U/L (15-37); Albumin 3.4 g/dL (3.4-5.0); Alkaline Phosphatase 100 U/L (46-116); Anion Gap 6.9 mmol/L (3-11); BUN 32 mg/dL (7-18); Bilirubin, Total 0.3 mg/dL (0.2-1.0); CO2 28.1 mmol/L (21.0-32.0); CREATININE 1.1 mg/dL (0.70-1.30); Calcium 8.5 mg/dL (8.5-10.1); Chloride 105 mmol/L (98-107); Estimated GFR 74.96 (mL/min/1.73m2); Glucose 136 mg/dL (74-106); Potassium 3.8 mmol/L (3.5-5.1); Sodium 140 mmol/L (136-145); Total Protein 7.1 g/dL (6.4-8.2)
[2024-10-30 19:11] LABS: CA 19-9 <2 U/mL (<35)
== END 2024-11-02 23:59 | disposition home or self-care (01) ==
LOC: INF 00:39
PROVIDERS: Nurse Practitioner Family; PCP Nurse Practitioner Family; Visit Provider Internal Medicine Hematology & Oncology
DX: C25.0 Malignant neoplasm of head of pancreas (principal); Z45.2 Encounter for adjustment and management of vascular access device
CPT/HCPCS: 36591; 80053; 85025; 86301

== ENCOUNTER 2024-11-25 01:49 | Outpatient (CLI) | payer BC, SELFPAY ==
--- NOTE | 2024-11-25 12:30 | DI.US_ITS ---
APPROVED REPORT EXAM: Comprehensive 2D, Doppler, and color-flow Echocardiogram Patient Location: Out-Patient Campaign Manager: Jailene Jauregui RDCS (AE) Indications: Pancreatic CA, Mets to liver, High risk med use, Elevated blood pressure Other Information Study Quality: Adequate Conclusion Normal left ventricular wall thickness and chamber size. There is mild global left ventricular dysfunction with an ejection fraction of 40 to 45% Normal right ventricular size and function Both atria are normal in size There is no structural or hemodynamically significant valvular disease Estimated right ventricular systolic pressure is 29 mmHg Wall motion Left Ventricle The left ventricle is normal size. Left ventricular systolic function is mildly decreased. There is normal left ventricular wall thickness. There is global hypokinesis of the left ventricle. There is no ventricular septal defect visualized. LVEF is 43%. Right Ventricle The right ventricle is normal size. The right ventricular systolic function is normal. Atria The left atrium size is normal. The right atrium size is normal. The interatrial septum is intact with no evidence for an atrial septal defect. Aortic Valve The aortic valve is normal in structure. Aortic valve is trileaflet. There is no aortic valvular stenosis. No aortic regurgitation is present. Mitral Valve The mitral valve is normal in structure. No evidence of mitral valve stenosis. Trace mitral regurgitation. Tricuspid Valve The tricuspid valve is normal in structure. There is no tricuspid valve stenosis. Trace tricuspid regurgitation. The RVSP is 29.3mmHg. Pulmonic Valve The pulmonary valve is normal in structure. There is no pulmonic valvular stenosis. Trace pulmonic regurgitation. Great Vessels The aortic root is normal in size. The ascending aorta is normal in size. Aortic arch is normal in caliber. IVC is normal in size and collapses >50% with inspiration. Pericardium There is no pericardial effusion. 2D Dimensions IVSD d PLAX 0.94 cm M: 0.6-1.2 Ao Root d 3.06 cm M: 3.1 - 3.7 LVPW d PLAX 0.91 cm M: 0.6 - 1.2 Ao Asc Diam d 3.52 cm M: 2.6 - 3.4 LVID d PLAX 4.70 cm M: 4.2 - 5.8 LVDs 3.70 cm M: 2.5 - 4.0 LV EF Teichholz 42.9 % FS 21.10 % LV EDV (Teich) 101.7 mL LV ESV (Teich) 58.0 mL M-Mode TAPSE 1.42 cm (M/F) >1.7 Auto EF LV EDV A4C 157.6 mL LV EDV A2C 168.6 mL LV EDV BP 161.4 mL LV ESV A4C 95.7 mL LV ESV A2C 95.7 mL LV ESV BP 94.1 mL LVEF(%) A4C 39.3 % LVEF(%) A2C 43.2 % LVEF(%) BP 41.7 % LV SV A4C 62.0 ml LV SV A2C 72.9 ml LV SV BP 67.3 ml LV CO A4C 3.9 L/min LV CO A2C 4.3 L/min LV CO BP 4.1 L/min HR A4C 62.94 BPM HR A2C 58.83 BPM LV EDV Index (BP) LV Strain Long Pk Overal Avg (s) 14.39 LA Volume LA Length A4C 5.0 cm LA Length A2C 5.5 cm LA Area A4C s 16.20 cm2 LA Area A2C s 22.16 cm2 LA Vol A4C A-L 44.41 mL LA Vol A2C A-L 75.68 mL LA Vol Biplane A-L 60.7 mL LA Vol/BSA A4C A-L LA Vol/BSA A2C A-L LA Vol/BSA BP A-L 29.6 mL/m2 LA Vol A4C MOD 41.2 mL LA Vol A2C MOD 70.5 mL LA Vol BP MOD 56.4 mL RA Volume RA Area A4C 13.6 cm2 RA ESV A4C (A-L) 38.2mL RA Vol/BSA A4C A-L RA Length A4C 4.1 cm RA ESV A4C (MOD) 35.6mL LV Diastology MV E' medial 0.043 (>0.07 m/s) MV E Vmax 0.37 (0.4-1.3 m/s) MV E/E' MED 8.73 (<14) MV A Vmax 0.50 (0.4-1.3 m/s) MV E' lateral 0.052 (>0.1 m/s) E/A Ratio 0.7 MV E/E' LAT 7.17 (<14) MV E' Average 0.047 m/s MV E/E'(average) 7.87 Aortic Valve AoV Vmax 1.03 m/s LVOT Vmax 0.74 m/s AoV Peak Grad 4.3 mmHg LVOT Peak Grad 2.2 mmHg AoV Area (Vmax) 2.31 cm2 LVOT VTI 0.145 m AoV VTI 0.236 m LVOT Mean Grad 1.3 mmHg AoV Mean Reese. 0.81 m/s LVOT SV 47.08 mL AoV Mean Grad 2.9 mmHg LVOT Diam s 2.00 cm AoV Area (VTI) 1.99 cm2 AV Regurg Peak Gr. 4.27 mmHg Velocity Ratio 0.72 Mitral Valve MV DT 407 (160-240 msec) MV Vmax TIPS 0.59 m/s MV Mean Grad 0.5 (<2mmHg) MV VTI 0.153 m Pulmonary Valve PV Vmax 1.06 (0.5-1.5 m/s) RVOT Vmax 0.57 m/s PV Peak Grad 4.5 mmHg RVOT Peak Gr. 1.3 mmHg PV Mean Reese 0.85 m/s RVOT VTI 0.108 m PV Mean Grad 3.1 mmHg RVOT Mean Gr. 0.7 mmHg Tricuspid Valve RA Pressure 3.00 mmHg TR Vmax 2.56 m/s TV S' 0.11 m/s TR Peak Grad 26.2 mmHg RVSP (TR) 29.3 mmHg
== END 2024-11-25 02:09 ==
LOC: DI 01:49
PROVIDERS: PCP Nurse Practitioner Family; Visit Provider Internal Medicine Cardiovascular Disease
DX: C25.7 Malignant neoplasm of other parts of pancreas (principal); C78.7 Secondary malignant neoplasm of liver and intrahepatic bile duct; Z79.899 Other long term (current) drug therapy; R03.0 Elevated blood-pressure reading, without diagnosis of hypertension
CPT/HCPCS: 93306

== ENCOUNTER 2024-12-22 01:07 | Outpatient (CLI) | payer BC, SELFPAY ==
--- NOTE | 2024-12-22 07:30 | DI.US_ITS ---
APPROVED REPORT EXAM: Comprehensive 2D, Doppler, and color-flow Echocardiogram Patient Location: Out-Patient Main [employer]ree Cook And Cashier: Jailene Jauregui RDCS (AE) Indications: Metastasis from pancreatic CA, Recheck cardiac function on high risk med with decrease in EF on Echo 11/05/34 compared to 09/01/24 Follow up Other Information Study Quality: Adequate Conclusion Normal left ventricular wall thickness and chamber size. Ejection fraction is 40 to 45%. There is global hypokinesis Normal right ventricular size and function Both atria are normal in size Ejection fraction is similar to that from November 2024 Wall motion Left Ventricle Left ventricular systolic function is mildly decreased. GLS is 14.1% There is global hypokinesis of the left ventricle. LVEF is 42%. Right Ventricle The right ventricle is normal size. The right ventricular systolic function is normal. Atria The left atrium size is normal. The right atrium size is normal. Auto EF LV EDV A4C 175.3 mL LV EDV A2C 153.0 mL LV EDV BP 163.7 mL LV ESV A4C 104.1 mL LV ESV A2C 88.8 mL LV ESV BP 95.7 mL LVEF(%) A4C 40.6 % LVEF(%) A2C 42.0 % LVEF(%) BP 41.5 % LV SV A4C 71.1 ml LV SV A2C 64.2 ml LV SV BP 68.0 ml LV CO A4C 4.6 L/min LV CO A2C 4.0 L/min LV CO BP 4.3 L/min HR A4C 64.63 BPM HR A2C 62.18 BPM LV EDV Index (BP) LV Strain Long Pk Overal Avg (s) 14.10
== END 2024-12-22 01:27 ==
LOC: DI 01:07
PROVIDERS: PCP Nurse Practitioner Family; Visit Provider Internal Medicine Cardiovascular Disease
DX: C79.9 Secondary malignant neoplasm of unspecified site (principal); C25.9 Malignant neoplasm of pancreas, unspecified
CPT/HCPCS: 93308